=== PATIENT | male | born 1950 | race Caucasian/White ===

== ENCOUNTER → 2020-11-30 12:18 | Outpatient (BNVA) | payer MEDICARE, SELFPAY | PROVIDERS: PCP Internal Medicine; Visit Provider Internal Medicine Cardiovascular Disease | DX: Z45.018 Encounter for adjustment and management of other part of cardiac pacemaker (principal); I48.92 Unspecified atrial flutter; I71.2 Thoracic aortic aneurysm, without rupture | CPT/HCPCS: 99212 ==

== ENCOUNTER → 2021-01-27 08:20 | Outpatient (REF) | payer MEDICARE, SELFPAY ==
--- NOTE | 2021-01-27 08:31 | CA_ITS ---
Transthoracic Echocardiogram Amended Patient (Last, First, Middle): Josh Germain W Gender: Male Date of : 1950 Age: 70 Procedure Date: 01/27/2021 Procedure Type: Transthoracic Echocardiogram Location: OP Height: 185.42 cm Weight: 100.7 kg BSA: 2.25 m2 Heart Rate: bpm BP: 122 / 80 mmHg Surveillance Dual Rate Officer: ALEXIS Referring MD: Trever Hathaway MD Public Works Director: Trever Hathaway MD Symptoms: I71.2 - Thoracic aortic aneurysm, without rupture Study Quality: Fair ECG Rhythm: Atrial Fibrillation Conclusions: - 1. Moderately dilated ascending aorta at 4.6 cm 2. Normal LV systolic function 3. Mild left atrial enlargement 4. Mild aortic regurgitation 5. Normal RV systolic pressure 6. No gross pericardial effusion Findings Left Ventricle Normal left ventricular size, thickness, and systolic function. The visually estimated ejection fraction is between 55-60%. Diastolic function is indeterminate on the basis of available data. Right Ventricle Mildly increased right ventricular cavity size. There is borderline right ventricular systolic function. There is a pacemaker wire seen in the right ventricle. Atria The left atrium is mildly dilated. Interatrial shunt cannot be excluded. The right atrium is likely dilated. A pacemaker wire is identified in the right atrium. Aortic Valve There is mild calcification of the aortic valve. There is no aortic valve stenosis. There is mild aortic valve regurgitation. Mitral Valve There is mild anterior mitral leaflet thickening. There is mild mitral annular calcification. There is trace mitral valve regurgitation. There is no mitral valve stenosis. Pulmonic Valve The pulmonic valve was not well visualized. Tricuspid Valve Likely normal tricuspid valve structure and function. There is trace tricuspid valve regurgitation. The right ventricular systolic pressure is normal. The right ventricular systolic pressure is 28 mmHg. Normal right atrial pressure. There is no evidence of pulmonary hypertension. Great Vessels The pulmonary artery was not well visualized. There is moderate dilatation of the ascending aorta measuring 4.60 cm. Venous The inferior vena cava is normal in size and collapses greater than 50% with inspiration. Pericardium/Pleural There is no evidence of pericardial effusion. Prior Study Comparison Changes noted compared to prior study dated: 01/14/2020. Ascending aorta is moderately dilated at 4.6 cm compared to 4.14 cm last year Recommendations, Care & Conclusions Recommend cardiac CT angiogram. Measurements 2D Linear Measurements IVSd: 1.32 0.6-0.9/0.6-1.0 cm LVIDd: 5.24 3.9-5.3/4.2-5.9 cm LVIDd Index: 2.33 2.4-3.2/2.2-3.1 cm/m2 LVIDs: 3.97 2.0-3.6 cm LVPWd: 1.29 0.7-1.1 cm Ao Root: 4.30 2.1-3.5 cm LA Diam: 4.80 2.7-3.8/3.0-4.0 cm LAIDs Index: 2.13 1.5-2.3 cm/m2 LV Mass: 353.45 67-162/88-224 g LV Mass Index: 157.09 43-95/49-115 g/m2 LVOT Diam: 2.40 3.0+(-)1.3 cm 2D Volumes LA Vol: 33.40 2D Systolic Function EF 4C: 45.30 >55% EF 2C: 57.80 >55% Aortic Valve AoV Pk José Luis: 1.16 AoV Mn José Luis: 0.89 AoV VTI: 0.27 AoV Pk Grad: 5.00 Aov Mn Grad: 3.00 IKER Cont.VTI: 2.91 LVOT LVOT Pk José Luis: 0.71 LVOT Mn José Luis: 0.49 LVOT VTI: 0.17 LVOT Pk Grad: 2.00 LVOT Mn Grad: 1.00 LVOT Diam: 2.40 LVOT Area: 4.52 Right Ventricle TAPSE (mm): 1.83 Tricuspid Valve TR Pk José Luis: 2.25 TR Pk Grad: 20.00 RA Press: 8.00 RVSP: 28.00 Great Vessels Aorta Ao Root-2D: 4.30 2.0-3.7 cm Ao Asc: 4.60 2.1-3.4 cm Ao Arch: 2.70 Updated in Other Vendor System with Status of Final Trever Hathaway MD electronically signed on 01/27/2021 4:50:40 PM with status of Final
== END ==
LOC: HO.CARD 08:20
PROVIDERS: Visit Provider Internal Medicine Cardiovascular Disease
DX: I71.2 Thoracic aortic aneurysm, without rupture (principal)
CPT/HCPCS: 93306

== ENCOUNTER 2021-02-02 07:45 | Outpatient (REF) | payer MEDICARE, SELFPAY ==
--- NOTE | ~2021-02-02 | CT_ITS ---
EXAMINATION: CT ANGIOGRAM CHEST CLINICAL INFORMATION: Thoracic aortic aneurysm without rupture. COMPARISON: None TECHNIQUE: Multiple axial images were obtained through the chest after the administration of 81 mL of Omnipaque 350 intravenous contrast. Extensive vascular post-processing including 2-dimensional and 3-dimensional reformatted images were created and reviewed on an independent workstation. This CT examination was performed using dose optimization techniques as appropriate, variously including the following: *Automated exposure control *Adjustment of mA and/or kV according to patient size (this includes techniques or standardized protocols for targeted exams where dose is matched to indication/reason for exam; i.e. extremities or head) *Use of iterative reconstruction technique DLP: 234 mGy-cm FINDINGS: There is good opacification of the entire thoracic aorta with mild aneurysmal dilatation of the ascending aorta measuring 4.3 x 4.6 cm on axial image 34/5. There is normal 3-vessel branching. There are pacer electrodes in the right atrium and right ventricle. No pericardial effusion seen. The central trachea and the bronchi are widely patent. The thyroid lobes are symmetrical and normal. Small shotty lymph nodes are seen in the pretracheal region with a short axis measurement of 7 mm, axial image 27/5. No additional abnormal lymph nodes or mass seen. The lungs are well expanded and clear of acute process. There are no pulmonary nodules, mass or consolidation. There is no pleural effusion, thickening or calcification. There are small shotty lymph nodes in the axilla. The chest wall is unremarkable. Imaging through the upper abdomen reveals the liver to be mildly enlarged, especially the caudate lobe is enlarged. There is lobulated liver contour with heterogeneity. The spleen, pancreas and bilateral adrenal glands are unremarkable. Left renal perinephric stranding and thickening especially along the upper pole. CT/CT angio chest IMPRESSION: Mild aneurysmal dilatation of the ascending aorta measuring 4.3 x 4.6 cm in the mid ascending aortic segment. The lungs are clear.
[2021-02-02 08:45] LABS: Anion Gap 12 (12-20); Blood Urea Nitrogen 7 mg/dL (9-16); Calcium 9.1 mg/dL (8.4-10.2); Carbon Dioxide 32 mmol/L (22-29); Chloride 102 mmol/L (96-108); Estimated Glomerular Filt Rate > 60; Glucose Random 150 mg/dL (60-115); Potassium 4.3 mmol/L (3.3-5.1); Sodium 142 mmol/L (135-145)
[2021-02-02] MEDS: iohexoL 350 MG/ML 100 ML INFUS..BTL IV (09:35)
== END 2021-02-02 07:46 | disposition home or self-care (01) ==
LOC: HO.CT 07:45
PROVIDERS: PCP Physician Assistant Medical; Visit Provider Internal Medicine Cardiovascular Disease
DX: I71.2 Thoracic aortic aneurysm, without rupture (principal)
CPT/HCPCS: 36415; 71275; 80048; Q9967

== ENCOUNTER → 2021-03-09 12:34 | Outpatient (BNVA) | payer MEDICARE, SELFPAY | PROVIDERS: PCP Physician Assistant Medical; Visit Provider Internal Medicine Cardiovascular Disease | DX: I71.2 Thoracic aortic aneurysm, without rupture (principal) | CPT/HCPCS: Q3014 ==

== ENCOUNTER → 2021-07-19 07:40 | Outpatient (REF) | payer MEDICARE, SELFPAY ==
--- NOTE | 2021-07-19 07:46 | CA_ITS ---
Transthoracic Echocardiogram Patient (Last, First, Middle): Josh Germain W Gender: Male Date of : 1950 Age: 70 Procedure Date: 07/19/2021 Procedure Type: Transthoracic Echocardiogram Location: OP Height: 185.42 cm Weight: 99.79 kg BSA: 2.24 m2 Heart Rate: bpm BP: 134 / 70 mmHg Cable Engineer: DALILA Referring MD: Trever Hathaway MD Flame Planer: Trever Hathaway MD Symptoms: I71.2 - Thoracic aortic aneurysm, without rupture Study Quality: Fair ECG Rhythm: Undetermined Conclusions: - Moderately dilated ascending aorta at 4.6 cm. No change Findings Great Vessels There is moderate dilatation of the ascending aorta measuring 4.60 cm. Prior Study Comparison No significant change compared to prior study dated: 01/27/2021. Measurements 2D Linear Measurements Ao Root: 4.20 2.1-3.5 cm Great Vessels Aorta Ao Root-2D: 4.20 2.0-3.7 cm Ao Asc: 4.60 2.1-3.4 cm Ao Arch: 3.70 Updated in Other Vendor System with Status of Final Trever Hathaway MD electronically signed on 07/19/2021 11:15:50 AM with status of Final
== END ==
LOC: HO.CARD 07:40
PROVIDERS: Visit Provider Internal Medicine Cardiovascular Disease
DX: I71.2 Thoracic aortic aneurysm, without rupture (principal)
CPT/HCPCS: 93308

== ENCOUNTER → 2021-12-06 08:21 | Outpatient (BNVA) | payer MEDICARE, SELFPAY | PROVIDERS: PCP Physician Assistant Medical; Referring Provider Physician Assistant Medical; Visit Provider Internal Medicine Cardiovascular Disease | DX: Z45.018 Encounter for adjustment and management of other part of cardiac pacemaker (principal); I48.20 Chronic atrial fibrillation, unspecified; I71.2 Thoracic aortic aneurysm, without rupture | CPT/HCPCS: 93005; 99212 ==

== ENCOUNTER → 2022-02-14 07:08 | Outpatient (REF) | payer MEDICARE, SELFPAY ==
--- NOTE | 2022-02-14 07:11 | CA_ITS ---
Transthoracic Echocardiogram Patient (Last, First, Middle): Josh Germain W Gender: Male Date of : 1950 Age: 71 Procedure Date: 02/14/2022 Procedure Type: Transthoracic Echocardiogram Location: OP Height: 185.42 cm Weight: 101.61 kg BSA: 2.26 m2 Heart Rate: 68 bpm BP: 120 / 80 mmHg Machined Parts Quality Inspector: MEJIA Referring MD: Trever Hathaway MD Sound Truck Operator: Trever Hathaway MD Symptoms: I71.2 - Thoracic aortic aneurysm, without rupture Study Quality: Adequate ECG Rhythm: Atrial Fibrillation Conclusions: - 1. Normal LV systolic function next 2. Moderate biatrial enlargement 3. Trivial aortic regurgitation 4. Moderately dilated ascending aorta at 4.6 cm 5. Normal RV systolic pressure 6. No gross pericardial effusion Findings Left Ventricle Normal left ventricular size, thickness, and systolic function. The visually estimated ejection fraction is between 55-60%. Diastolic function is indeterminate on the basis of available data. Right Ventricle Mildly increased right ventricular cavity size. There is normal right ventricular systolic function. There is a pacemaker wire seen in the right ventricle. Atria The left atrium is moderately dilated. Interatrial shunt cannot be excluded. The right atrium is moderately dilated. Aortic Valve There is mild calcification of the aortic valve. There is no aortic valve stenosis. There is trace (trivial) aortic valve regurgitation. Mitral Valve There is mild anterior and posterior mitral leaflet thickening. There is mild mitral annular calcification. There is trace mitral valve regurgitation. There is no mitral valve stenosis. Pulmonic Valve The pulmonic valve was not well visualized. Tricuspid Valve Likely normal tricuspid valve structure and function. There is mild tricuspid valve regurgitation. The right ventricular systolic pressure is normal. The right ventricular systolic pressure is 29 mmHg. Normal right atrial pressure. There is no evidence of pulmonary hypertension. Great Vessels The pulmonary artery was not well visualized. There is moderate dilatation of the ascending aorta measuring 4.60 cm. Venous The inferior vena cava is normal in size and collapses greater than 50% with inspiration. Pericardium/Pleural There is no evidence of pericardial effusion. Prior Study Comparison No significant change compared to prior study dated: 07/19/2021. Measurements 2D Linear Measurements IVSd: 1.41 0.6-0.9/0.6-1.0 cm LVIDd: 5.28 3.9-5.3/4.2-5.9 cm LVIDd Index: 2.34 2.4-3.2/2.2-3.1 cm/m2 LVIDs: 3.65 2.0-3.6 cm LVPWd: 0.84 0.7-1.1 cm LA Diam: 5.20 2.7-3.8/3.0-4.0 cm LAIDs Index: 2.30 1.5-2.3 cm/m2 LV Mass: 291.48 67-162/88-224 g LV Mass Index: 128.97 43-95/49-115 g/m2 LVOT Diam: 2.90 3.0+(-)1.3 cm 2D Systolic Function EF 4C: 57.60 >55% EF 2C: 47.50 >55% Aortic Valve AoV Pk José Luis: 1.33 AoV Mn José Luis: 0.84 AoV VTI: 0.27 AoV Pk Grad: 7.00 Aov Mn Grad: 4.00 IKER Cont.VTI: 5.25 LVOT LVOT Pk José Luis: 1.01 LVOT Mn José Luis: 0.70 LVOT VTI: 0.22 LVOT Pk Grad: 4.00 LVOT Mn Grad: 2.00 LVOT Diam: 2.90 LVOT Area: 6.61 Right Ventricle TAPSE (mm): 17.30 TVS' José Luis: 11.90 Tricuspid Valve TR Pk José Luis: 2.27 TR Pk Grad: 21.00 RA Press: 8.00 RVSP: 29.00 Great Vessels Aorta Sinus of Valsalva: 4.10 2.0-3.5 cm Ao Asc: 4.60 2.1-3.4 cm Ao Arch: 3.90 Pulmonary Valve PV Pk José Luis: 0.77 Peak PV Grad: 2.00 Updated in Other Vendor System with Status of Final Trever Hathaway MD electronically signed on 02/14/2022 12:03:49 PM with status of Final
== END ==
LOC: HO.CARD 07:08
PROVIDERS: PCP Registered Nurse; Visit Provider Internal Medicine Cardiovascular Disease
DX: I71.2 Thoracic aortic aneurysm, without rupture (principal)
CPT/HCPCS: 93306

== ENCOUNTER → 2022-12-06 09:00 | Outpatient (BNVA) | payer MEDICARE, SELFPAY | PROVIDERS: PCP Registered Nurse; Referring Provider Registered Nurse; Visit Provider Internal Medicine Cardiovascular Disease | DX: I48.20 Chronic atrial fibrillation, unspecified (principal); I71.20 Thoracic aortic aneurysm, without rupture, unspecified; Z79.01 Long term (current) use of anticoagulants; Z45.018 Encounter for adjustment and management of other part of cardiac pacemaker | CPT/HCPCS: 93005; 99212 ==

== ENCOUNTER → 2023-04-03 23:59 | Outpatient (BNV) | payer MEDICARE, SELFPAY ==
--- NOTE | 2023-04-10 15:59 | A.OFFVIS_ITS ---
Intake Intake Visit Reasons: Remote device check- [facility] Allergies bacitracin [Bacitracin] Allergy (Mild, Verified 12/06/22 09:10) ITCHING Sulfa (Sulfonamide Antibiotics) Allergy (Mild, Verified 12/06/22 09:10) Itching [facility] Medical History Cardiac pacemaker in situ Chronic atrial fibrillation Chronic atrial flutter HTN (hypertension) Thoracic aortic aneurysm Surgical History History of hammer toe correction History of permanent cardiac pacemaker placement Hx of cholecystectomy Family History Father No problems noted. Mother Cancer Office Procedures Cardiac Device Check Cardiac Device Check Details: Remote pacemaker report generated April 03 2023. Pacemaker function is adequate [id number] Cardiac Device Interrogation, pacemaker Procedure code (CPT) selection complete Coding Level of Care Code Procedure Only CPT Codes Cardiac Device Check - Cardiac Device 12: [id number] Cardiac Device Interrogation, pacemaker ([id number])
== END ==
PROVIDERS: PCP Registered Nurse; Visit Provider Internal Medicine Cardiovascular Disease
DX: I48.20 Chronic atrial fibrillation, unspecified (principal); Z95.0 Presence of cardiac pacemaker
CPT/HCPCS: 93294

== ENCOUNTER 2023-06-29 09:15 | Outpatient (AMB) | payer MEDICARE, SELFPAY ==
--- NOTE | 2023-06-29 09:20 | MHC.OFFVIS ---
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 Accompanied by: Self / Same As Patient Allergies bacitracin [Bacitracin] Allergy (Mild, Verified 06/29/23 09:23) ITCHING Sulfa (Sulfonamide Antibiotics) Allergy (Mild, Verified 06/29/23 09:23) Itching Medication List - Last Reconciled 06/29/23 by Trever Hathaway MD magnesium oxide 400 mg PO DAILY metformin 1,000 mg PO BID metoprolol succinate ER 200 mg PO DAILY multivitamin 1 tab PO DAILY prazosin 2 mg PO BID sour egan extract (Tart Egan Extract) mg PO thiamine HCl (vitamin B1) (Vitamin B-1) 100 mg PO BID triamterene-hydrochlorothiazid 37.5-25 mg 1 tab PO DAILY ursodiol 500 mg PO TID warfarin 5 mg PO DAILY HPI HPI Comments History of Present Illness Details Josh comes for follow-up. He has been doing well. He denies any cardiac complaints. Denies any symptoms of prolonged palpitation irregular heartbeat. No bleeding issues or neurologic events. Takes warfarin, levels are well optimized. Denies any exertional chest pain or shortness of breath. Denies any orthopnea, PND, leg edema. Takes all his medications regularly. [facility] Medical History Chronic atrial fibrillation Thoracic aortic aneurysm HTN (hypertension) Cardiac pacemaker in situ Chronic atrial flutter Surgical History History of hammer toe correction Hx of cholecystectomy History of permanent cardiac pacemaker placement Family History Father No problems noted. Mother Cancer Social History Alcohol intake: current Alcohol type: wine Patient Tobacco Use Status: Never used Tobacco Review of Systems Const Reports chills, Reports fatigue, Reports fever(s), Reports frequent falls, Reports weakness, Reports weight gain and Reports weight loss ENT Reports dizziness Card Reports chest pain, Reports leg edema, Reports lightheadedness, Reports palpitations, Reports dyspnea and Reports dyspnea on exertion Resp Reports cough, Reports dyspnea and Reports dyspnea on exertion GI Reports hematochezia Musc Reports abnormal gait, Reports muscle weakness, Reports numbness, Reports radiating pain into limb and Reports tingling Neuro Reports abnormal gait, Reports dizziness, Reports frequent falls, Reports numbness, Reports tingling and Reports weakness Endo Reports fatigue and Reports palpitations Physical Exam Vital Signs: Last Vital Signs Pulse 84 06/29/23 09:21 BP 130/70 06/29/23 09:21 BMI result Body Mass Index 28.0 Const General: cooperative, comfortable, no acute distress, alert, awake and Physically active Nutritional Appearance: average body habitus Orientation/consciousness: patient oriented x3 Limitations: no limitations Neck Neck: Yes trachea midline, Yes supple and Yes no JVD Resp Effort & Inspection: normal respiratory effort Auscultation: clear to auscultation bilaterally Cardio Jugular venous distension: no JVD Palpation: normal PMI Rhythm: abnormal rhythm irregularly irregular Heart sounds: S1 normal heart sound present and S2 normal heart sound present GI Auscultation: normal bowel sounds Skin General skin exam: no rashes or lesions noted and dry skin Neuro General: patient oriented x3 and no focal motor deficits Extrem General: Yes no clubbing, cyanosis or edema Psych Appearance: grossly normal Office Procedures Cardiac Device Check Cardiac Device Check Details: Dual-chamber [place] [facility] pacemaker in place. Programmed in VVI due to chronic atrial fibrillation. Heart rate is adequately controlled. Ventral capture thresholds adequate. Ventricular sensing is stable on the lower side. Pacing lead impedance is stable. Battery life is at about 11.8 years [id number] Cardiac Device Check, pacemaker dual lead Procedure code (CPT) selection complete Assessment & Plan Assessment & Plan (1) Chronic atrial fibrillation: Code(s): I48.20 - Chronic atrial fibrillation, unspecified Plan: Chronic rate control atrial fibrillation currently doing well. Continue current rate control strategy. No signs or symptoms of heart failure. He has failed rhythm control approach in the past. Unlikely to pursue rhythm control at this point time given long-standing atrial fibrillation. Currently on warfarin therapy for anticoagulation continue the same. Target goal INR between 2 and 3 being followed by [facility]. (2) Thoracic aortic aneurysm: Comment: 4.2 cm by echocardiogram December 2019 Code(s): I71.2 - Thoracic aortic aneurysm, without rupture Plan: Thoracic aortic aneurysm which has remained stable. Follow-up echocardiogram in near future before he travels to [place]. No interventions required if the size is stable. This was discussed with him. Avoidance of sudden strenuous isometric exercise was discussed. Continue aggressive blood pressure control which is currently well optimized. (3) Cardiac pacemaker in situ: Code(s): Z95.0 - Presence of cardiac pacemaker Plan: Cardiac pacemaker in-situ for sick sinus syndrome. Pacemaker is currently in VVI mode. Working well. Follow remotely in 3 months time. Follow up in the clinic in 6 months time. Will follow up in the clinic in 6 months time, sooner p.r.n.. Thank you for allowing me to partake in his care Orders: Orders CA echo transthorac w con Today I71.2 - Thoracic aortic aneurysm, without rupture Coding Level of Care Code Est Pt Level 4 (31138) Diagnoses Chronic atrial fibrillation I48.20 Thoracic aortic aneurysm I71.2 Cardiac pacemaker in situ Z95.0 CPT Codes Cardiac Device Check - Cardiac Device 2: [id number] Cardiac Device Check, pacemaker dual lead ([id number])
[2023-06-29 09:21] VITALS: BP 130/70; PULSE 84; BMI 28.0
== END 2023-06-29 09:41 | disposition home or self-care (01) ==
PROVIDERS: Visit Provider Internal Medicine Cardiovascular Disease
DX: I48.20 Chronic atrial fibrillation, unspecified (principal); I71.20 Thoracic aortic aneurysm, without rupture, unspecified; Z95.0 Presence of cardiac pacemaker
CPT/HCPCS: 93280; 99214

== ENCOUNTER → 2023-06-29 09:15 | Outpatient (BNVA) | payer MEDICARE, SELFPAY | PROVIDERS: Visit Provider Internal Medicine Cardiovascular Disease | DX: Z45.018 Encounter for adjustment and management of other part of cardiac pacemaker (principal); I48.20 Chronic atrial fibrillation, unspecified; I71.20 Thoracic aortic aneurysm, without rupture, unspecified | CPT/HCPCS: 93280; 99212 ==

== ENCOUNTER 2023-07-15 09:16 | Outpatient (AMB) | payer MEDICARE, SELFPAY ==
--- NOTE | 2023-07-15 11:14 | AM.OFFWIN_ITS ---
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 ([phone]) Intake Note: Pt is here today c/o lower back pain x2days: no injury noted: Patient Tobacco Use Status: Never used Tobacco Allergies bacitracin [Bacitracin] Allergy (Mild, Verified 07/15/23 11:14) ITCHING Sulfa (Sulfonamide Antibiotics) Allergy (Mild, Verified 07/15/23 11:14) Itching Do you need a note to return to daycare/school/sports/work: No HPI HPI Comments History of Present Illness Details This is a 72-year-old male with a past medical history of hyperglycemia, hypertension and atrial fibrillation currently maintained on Coumadin presenting for evaluation of atraumatic low back pain that he has had for the past 2 days. Patient states he woke up on morning with pain in his left low back that does not radiate. Patient describes the pain as a soreness which will become stabbing in nature with movement. Patient denies any injury or trauma preceding the onset of his symptoms. Patient has been taking ibuprofen without complete relief of his discomfort. [facility] Medical History Chronic atrial fibrillation Thoracic aortic aneurysm HTN (hypertension) Cardiac pacemaker in situ Chronic atrial flutter Surgical History History of hammer toe correction Hx of cholecystectomy History of permanent cardiac pacemaker placement Family History Father No problems noted. Mother Cancer Social History Alcohol intake: current Alcohol type: wine Patient Tobacco Use Status: Never used Tobacco Review of Systems Const All systems reviewed & are unremarkable except as noted in HPI and below Musc Reports no additional complaints, Reports back pain, Denies myalgias and Denies radiating pain into limb Psych Reports no additional complaints Physical Exam Vital Signs: Last Vital Signs Pulse 66 07/15/23 11:22 BP 110/50 L 07/15/23 11:22 Pulse Ox 94 07/15/23 11:22 Oxygen Delivery Method Room Air 07/15/23 11:22 BMI result Body Mass Index 28.8 Const General: cooperative, healthy appearing, comfortable and no acute distress Nutritional Appearance: average body habitus Orientation/consciousness: patient oriented x3 Limitations: no limitations General: Yes no CVA tenderness Back/Spine/Pelvis Back: no CVA tenderness and No sacral edema Thoracic/Lumbar Spine: thoracic and lumbar spine normal to inspection, thoraco- lumbar ROM normal, straight leg raise negative bilaterally and paraspinal muscle tenderness on the left greater than right Sacroiliac joints: bilaterally nontender Sacrum: no tenderness Coccyx: no tenderness Skin General skin exam: no rashes or lesions noted Neuro General: patient oriented x3 Gait exam (Neuro): Normal gait present Motor exam (neuro): 5/5 motor strength present throughout Psych Appearance: grossly normal Mental Status: mental status grossly normal Insight: Good insight present (Psych) Judgement: Good judgement present (Psych) Assessment & Plan Assessment & Plan (1) Lumbar strain: Code(s): S39.012A - Strain of muscle, fascia and tendon of lower back, initial encounter Plan: Patient's history coupled with his examination is consistent with a lumbar muscular strain. Further imaging is not warranted at this time. Given this patient's Coumadin use he will be discharged home with Flexeril and prednisone. Patient will follow up with his primary care provider if his symptoms persist or worsen. Medications: New prednisone 40 mg (2 x 20 mg) PO DAILY 8 tabs 0RF cyclobenzaprine 5 mg PO TID PRN 12 tabs 0RF muscle spasm Coding Level of Care Code New Pt Level 3 (29247) Diagnoses Lumbar strain S39.012A Time Spent (min) 20
[2023-07-15 11:22] VITALS: BP 110/50; PULSE 66; O2SAT 94; BMI 28.8
== END 2023-07-15 11:57 | disposition home or self-care (01) ==
PROVIDERS: PCP Registered Nurse; Visit Provider Physician Assistant
DX: S39.012A Strain of muscle, fascia and tendon of lower back, initial encounter (principal)
CPT/HCPCS: 99203

== ENCOUNTER 2023-07-17 07:38 | Emergency (ER) | payer MEDICARE, SELFPAY ==
--- NOTE | ~2023-07-17 | XR_ITS ---
EXAMINATION: XR LUMBOSACRAL SPINE CLINICAL INFORMATION: Midline tenderness. COMPARISON: None available. TECHNIQUE: Three views of the lumbosacral spine. FINDINGS: Posterior laminectomy with posterior stabilization hardware at L4 through S1. No hardware fracture or perihardware lucency to suggest loosening or infection. The lumbar lordosis is maintained. No acute fracture or subluxation. No loss of vertebral body height. Multilevel loss of intervertebral disc height with endplate degenerative changes and osteophytes. Multilevel bilateral facet arthropathy. No concerning lytic or blastic osseous lesion. Atherosclerotic calcifications. XR/XR lumbar spine 2-3V IMPRESSION: 1. Posterior stabilization hardware at L4 through S1 without evidence of hardware complication. 2. No acute fracture or subluxation.
[2023-07-17 08:29] VITALS: BP 143/71; PULSE 64; RESP 16; TEMP 36.6; O2SAT 95; BMI 27.3
--- NOTE | 2023-07-17 09:16 | ED_ITS ---
HPI - General Adult General Chief complaint: Back Pain/Injury Stated complaint: Lower back pain Time Seen by Provider: 07/17/23 09:16 Source: patient and family () Mode of arrival: ambulatory Limitations: no limitations History of Present Illness HPI narrative: Patient is a 72-year-old male with history of AFib on Coumadin, thoracic aortic aneurysm, HTN, pacemaker presenting to the emergency department with complaint of left lower back pain since waking Monday morning. He was seen at the walk-in on 07/15, diagnosed with a lumbar strain, and prescribed prednisone and cyclobenzaprine. Reports he did not have any imaging done at urgent care. He was taking Tylenol prior to this with little relief. States that these medications have not improved his symptoms at all and his pain is worsening. Denies any dysuria, frequency or other urinary symptoms. Denies fevers. Denies any weakness, numbness, tingling. Denies any radiation of pain. Denies any abdominal pain. Denies any chest pain, palpitations, shortness of breath. Reports history of previous back surgeries, is unsure specifically what type of surgery. MD complaint: Back pain Onset (ago): day(s) Location: back Radiation: non-radiation Severity: severe Quality: aching Pain Consistency: constant Relieving factors: rest Exacerbating factors: movement Associated symptoms: denies other symptoms Treatments prior to arrival: other Related Data Home Medications Medication Instructions Recorded Confirmed multivitamin 1 tab PO DAILY 11/30/20 06/29/23 prazosin 2 mg capsule 2 mg PO BID 11/30/20 06/29/23 warfarin 5 mg tablet 5 mg PO DAILY 11/30/20 06/29/23 metoprolol succinate 100 mg 200 mg PO DAILY 12/06/21 06/29/23 tablet,extended release 24 hr sour mcleod extract 1,000 mg mg PO 12/06/21 06/29/23 capsule (Tart Mcleod Extract) thiamine HCl (vitamin B1) 100 mg 100 mg PO BID 12/06/21 06/29/23 tablet (Vitamin B-1) magnesium oxide 400 mg (241.3 mg 400 mg PO DAILY 12/06/22 06/29/23 magnesium) tablet metformin 1,000 mg tablet 1,000 mg PO BID 12/06/22 06/29/23 triamterene 37.5 1 tab PO DAILY 12/06/22 06/29/23 mg-hydrochlorothiazide 25 mg tablet ursodiol 500 mg tablet 500 mg PO TID 12/06/22 06/29/23 Previous Rx's Medication Instructions Recorded cyclobenzaprine 5 mg tablet 5 mg PO TID PRN muscle spasm #12 07/15/23 tabs prednisone 20 mg tablet 40 mg (2 x 20 mg) PO DAILY #8 tabs 07/15/23 diclofenac sodium 1 % topical gel 4 g topical QID #100 grams 07/17/23 lidocaine 5 % topical patch 1 patch topical DAILY #15 ea 07/17/23 tramadol 50 mg tablet 50 mg PO Q8H PRN pain #12 tabs 07/17/23 Allergies Allergy/AdvReac Type Severity Reaction Status Date / Time bacitracin [Bacitracin] Allergy Mild ITCHING Verified 07/15/23 11:14 Sulfa (Sulfonamide Allergy Mild Itching Verified 07/15/23 11:14 Antibiotics) Review of Systems Review of Systems: As per HPI. Yes all other systems are reviewed and are negative Constitutional: Constitutional: Reports as per HPI [facility] Past Medical History Medical History Chronic atrial fibrillation Thoracic aortic aneurysm HTN (hypertension) Cardiac pacemaker in situ Chronic atrial flutter Surgical History History of hammer toe correction Hx of cholecystectomy History of permanent cardiac pacemaker placement Family History Family History Father No problems noted. Mother Cancer Social History Social History Alcohol intake: current Alcohol type: wine Patient Tobacco Use Status: Never used Tobacco Advance Directives: No Advance Directives Information Provided: No Physical Exam ED Vital Signs: Vital Signs - 24 hr 07/17/23 08:29 Temperature 98 F Pulse Rate 64 Respiratory Rate 16 Blood Pressure 143/71 H Pulse Oximetry 95 Oxygen Delivery Method Room Air BMI result Body Mass Index 27.3 Vital signs have been reviewed and appear to be correct. Blood pressure normal. Heart rate normal. Respiratory rate normal. Temperature normal. Oxygen saturation normal. Const General: cooperative, healthy appearing and no acute distress Orientation/consciousness: oriented to person, oriented to place, oriented to time and patient oriented x3 Limitations: no limitations [facility] Head: Yes normocephalic and Yes atraumatic Ears: external ears normal General nose exam: Normal external nose present Face and sinus: Yes face symmetric Mouth: oropharynx normal and moist mucous membranes Throat: Yes uvula midline Eyes Pupils: Equal, round and reactive pupils present Neck Neck: Yes normal visual inspection, Yes no meningeal signs and Yes supple Resp Effort & Inspection: normal respiratory effort and able to speak in complete sentences Auscultation: clear to auscultation bilaterally Cardio Rate: regular rate Rhythm: regular rhythm Heart sounds: S1 normal heart sound present and S2 normal heart sound present GI Palpation (GI): Soft to palpation and nontender Auscultation: normoactive bowel sounds General: Yes no CVA tenderness Back/Spine/Pelvis Back: no CVA tenderness Cervical Spine: normal cervical lordosis, cervical ROM normal, No Cervical spine tenderness and No step off deformity Thoracic/Lumbar Spine: thoracic and lumbar spine normal to inspection, thoraco- lumbar ROM normal, straight leg raise negative bilaterally, No mass, pain with thoraco-lumbar ROM, paraspinal muscle tenderness on the left in the upper thoracic, No thoracic spinal tenderness and lumbar spinal tenderness at L1 and at L2 Sacroiliac joints: bilaterally nontender Sacrum: no tenderness Coccyx: no tenderness Skin General skin exam: elasticity normal and turgor normal Neuro General: oriented to person, oriented to place, oriented to time, patient oriented x3, gait normal, tone normal, moves all extremities, Normal light touch and pain sensation, no meningeal signs, no focal motor deficits, CN's II-XI intact bilaterally and deep tendon reflexes 2+ bilaterally Cranial nerves: Yes Equal, round and reactive pupils present Cognition (Neuro): normal cognition Motor exam (neuro): 5/5 motor strength present throughout, Normal motor muscle tone present throughout and Motor abnormalities not present Extrem General: Yes full ROM, Yes no pedal edema and Yes no calf tenderness Right lower extremity: foot Details: vascular exam Details: dorsalis pedis pulse present, posterior tibial pulse present and normal capillary refill Left lower extremity: foot Details: vascular exam Details: dorsalis pedis pulse present, posterior tibial pulse present and normal capillary refill Psych Mental Status: mental status grossly normal Affect: normal affect Thought process: Normal thought process present Medications Administered Discontinued Medications Generic Name Dose Route Start Last Admin Trade Name Freq PRN Reason Stop Dose Admin Oxycodone HCl 5 mg 07/17/23 09:24 07/17/23 09:59 Oxycodone Hcl Immed Release 5 Mg Tablet PO 07/17/23 09:25 5 mg ONCE ONE Administration Medical Decision Making Medical Decision Making [facility] Narrative: Patient is a 72-year-old male with history of AFib on Coumadin, thoracic aortic aneurysm, HTN, pacemaker presenting to the emergency department with complaint of left lower back pain since waking [place] morning not improved with cyclobenzaprine and prednisone. On exam patient is awake, A+Ox3, BP mildly elevated, VS otherwise WNL, afebrile, normal neurological exam without focal deficits, physical exam findings as above. Given reported symptoms and physical exam findings, initial differential includes lumbar strain, vertebral compression fracture, subluxation, spinal stenosis, osteoarthritis. Less likely UTI but will obtain UA. Do not suspect spinal epidural abscess, cauda equina or cord compression. X-ray notable for no acute fracture or subluxation, hardware present. My interpretation is in agreement with the radiologist's interpretation. UA notable only for trace leukocytes, given absence of urinary symptoms do not suspect UTI. Will treat patient with lidocaine patches, diclofenac gel, and tramadol. Instructed patient to follow up with PCP. Return precautions discussed at bedside. Patient verbalized understanding of and agreement with plan. Differential Diagnosis Differential Diagnoses: The differential diagnosis associated with the presentation includes As per MDM. Lab Data [facility] Lab Attestation statement: I reviewed the patient's lab results. As per [facility]. Labs: Lab Results 07/17/23 Range/Units 10:33 Urine Color Dark Yellow Urine Appearance Clear Urine pH 7.5 (5.0-9.0) Ur Specific [place] 1.025 (1.005-1.025) Urine Protein Trace (Neg-Trace) mg/dL Urine Glucose (UA) Negative (Negative) mg/dL Urine Ketones Negative (Negative) mg/dL Urine Blood Negative (Negative) Urine Nitrite Negative (Negative) Ur Leukocyte Esterase Trace H (Negative) Urine RBC 0-2 (0-2) /HPF Urine WBC 0-5 (0-5) /HPF Ur Squamous Epith Cells 0-2 (0-2) /HPF Urine Bacteria None Seen (None Seen) Hyaline Casts 0-2 (0-2) /LPF Independent Interpretation I performed an independent interpretation of an: Plain X-Ray Interpretation: No acute fracture or subluxation on lumbar x-ray Radiology Impression Discussion of test interpretation with radiology: I have reviewed the radiologist's reading. Radiologist Impression: XR/XR lumbar spine 2-3V IMPRESSION: 1. Posterior stabilization hardware at L4 through S1 without evidence of hardware complication. 2. No acute fracture or subluxation. Independent Historian Clinical information obtained from an independent historian. History obtained from or confirmed by: Spouse External Record Review External record reviewed: Inpatient record, Office record and Outpatient record Prescription Management I considered prescription management with: Pain Medication Chronic Conditions Patient?s care impacted by: Hypertension Discharge Plan Discharge Clinical Impression: Lumbar strain Patient Disposition: Home, Self-Care Instructions: Low Back Strain (ED), Acute Low Back Pain (ED) Additional Instructions: You were evaluated in the emergency department today for back pain. Your evaluation did not show signs of medical conditions requiring emergent intervention at this time. We recommended that you use 650mg Tylenol every 6 hours as needed for pain. You are being prescribed tramadol for severe pain. D O NOT TAKE THE TRAMADOL WITH THE FLEXERIL (CYCLOBENZAPRINE). You have been prescribed 5% topical lidocaine patches which you can wear for up to 12 hours in a 24 hour period. You are also being prescribed diclofenac gel which you can apply to the affected area. Please schedule an appointment for follow-up with your primary care physician this week for further evaluation of your symptoms. Return to the emergency department if you experience worsening back pain, difficulty walking, fevers, numbness, tingling, incontinence, groin numbness or tingling, or any other concerning symptoms. Prescriptions: New tramadol 50 mg tablet 50 mg PO Q8H PRN (Reason: pain) Qty: 12 0RF Rx Instructions: DO NOT TAKE THIS MEDICATION WITH YOUR FLEXERIL (CYCLOBENZAPRINE) lidocaine 5 % adhesive patch,medicated 1 patch topical DAILY Qty: 15 0RF Rx Instructions: leave on most painful area for up to 12 hrs diclofenac sodium 1 % gel 4 g topical QID Qty: 100 0RF Rx Instructions: apply to single knee, ankle, foot; for foot includes sole/toes/top of foot No Action prednisone 20 mg tablet 40 mg PO DAILY Qty: 8 0RF cyclobenzaprine 5 mg tablet 5 mg PO TID PRN (Reason: muscle spasm) Qty: 12 0RF multivitamin Tablet 1 tab PO DAILY warfarin 5 mg tablet 5 mg PO DAILY prazosin 2 mg capsule 2 mg PO BID thiamine HCl (vitamin B1) [Vitamin B-1] 100 mg tablet 100 mg PO BID Tart Mcleod Extract 1,000 mg capsule PO metoprolol succinate 100 mg tablet extended release 24 hr 200 mg PO DAILY ursodiol 500 mg tablet 500 mg PO TID triamterene-hydrochlorothiazid 37.5-25 mg tablet 1 tab PO DAILY metformin 1,000 mg tablet 1,000 mg PO BID magnesium oxide 400 mg (241.3 mg magnesium) tablet 400 mg PO DAILY
[2023-07-17] MEDS: oxyCODONE HCl Immed Release 5 MG TABLET PO (09:59)
[2023-07-17 10:39] LABS: Appearance Urine Clear; Color Urine Dark Yellow; Glucose Urine UA Negative (Negative); Leukocyte Esterase Urine Trace (Negative); Nitrite Urine Negative (Negative); PH 7.5 (5.0-9.0); Specific Gravity - Urine 1.025 (1.005-1.025); UMIC TRIGGER UACC YES; Urine Blood Negative (Negative); Urine Ketones Negative (Negative); Urine Protein Trace mg/dL (Neg-Trace)
[2023-07-17 10:42] LABS: Bacteria Urine None Seen (None Seen); Hyaline Casts Urine 0-2 /LPF (0-2); RBC Urine 0-2 /HPF (0-2); Squamous Epithelial Cell Urine 0-2 /HPF (0-2); WBC Urine 0-5 /HPF (0-5)
== END 2023-07-17 11:08 | disposition home or self-care (01) ==
PROVIDERS: Registered Nurse Emergency; Emergency Provider Emergency Medicine; PCP Registered Nurse
DX: S39.012A Strain of muscle, fascia and tendon of lower back, initial encounter (principal); X58.XXXA Exposure to other specified factors, initial encounter; I10 Essential (primary) hypertension; I48.20 Chronic atrial fibrillation, unspecified; Z95.0 Presence of cardiac pacemaker; Z79.01 Long term (current) use of anticoagulants; Y93.9 Activity, unspecified; Y92.9 Unspecified place or not applicable; Y99.9 Unspecified external cause status
CPT/HCPCS: 72100; 81001; 99283; 99284

== ENCOUNTER → 2023-07-19 07:50 | Outpatient (REF) | payer MEDICARE, SELFPAY ==
--- NOTE | 2023-07-19 07:53 | CA_ITS ---
Transthoracic Echocardiogram Amended Patient (Last, First, Middle): Josh Germain W Gender: Male Date of : 1950 Age: 72 Procedure Date: 07/19/2023 Procedure Type: Transthoracic Echocardiogram Location: OP Height: 185.42 cm Weight: 93.9 kg BSA: 2.18 m2 Heart Rate: bpm BP: 122 / 68 mmHg [place]: TO Referring MD: Trever Hathaway MD Oncology Account Specialist: Trever Hathaway MD Symptoms: I71.2 - Thoracic aortic aneurysm, without rupture Study Quality: Fair ECG Rhythm: Atrial Fibrillation Conclusions: - 1. Normal LV ejection fraction 55-60% 2. Moderate biatrial enlargement 3. Mildly to moderately dilated ascending aorta, measured on this study at 4.4 cm 4. Normal RV systolic pressure 5. No gross pericardial effusion Findings Procedure Information The study quality is limited by the patients inability to tolerate the test. Left Ventricle Normal left ventricular size, thickness, and systolic function. The visually estimated ejection fraction is between 55-60%. There is no evidence of regional wall motion abnormalities. Diastolic function is indeterminate on the basis of available data. There is moderate septal asymmetric hypertrophy. Right Ventricle Normal right ventricular cavity size. There is normal right ventricular systolic function. There is a pacemaker wire seen in the right ventricle. Atria Moderate biatrial enlargement. There is no evidence of interatrial shunt. Aortic Valve There is mild calcification of the aortic valve. There is no aortic valve stenosis. There is no aortic valve regurgitation. Mitral Valve There is mild anterior and moderate posterior mitral leaflet thickening. There is moderate mitral annular calcification. There is trace mitral valve regurgitation. There is no mitral valve stenosis. Tricuspid Valve Normal tricuspid valve structure. There is mild tricuspid valve regurgitation. The right ventricular systolic pressure is 20 mmHg. Normal right atrial pressure. There is no evidence of pulmonary hypertension. Great Vessels The pulmonary artery was not well visualized. There is mild dilatation of the ascending aorta measuring 4.40 cm. Venous The inferior vena cava is normal in size and collapses greater than 50% with inspiration. Pericardium/Pleural There is no evidence of pericardial effusion. Prior Study Comparison No significant change compared to prior study dated: 02/14/2022. Measurements 2D Linear Measurements IVSd: 1.74 0.6-0.9/0.6-1.0 cm LVIDd: 5.27 3.9-5.3/4.2-5.9 cm LVIDd Index: 2.42 2.4-3.2/2.2-3.1 cm/m2 LVIDs: 3.95 2.0-3.6 cm LVPWd: 0.93 0.7-1.1 cm LA Diam: 5.30 2.7-3.8/3.0-4.0 cm LAIDs Index: 2.43 1.5-2.3 cm/m2 LV Mass: 367.39 67-162/88-224 g LV Mass Index: 168.53 43-95/49-115 g/m2 LVOT Diam: 2.60 3.0+(-)1.3 cm 2D Volumes LA Vol: 55.50 2D Systolic Function EF 4C: 50.90 >55% EF 2C: 60.40 >55% EF BiP: 55.20 >55% Mitral Valve MV VTI: 0.28 MV Pk José Luis: 1.05 MV Mn José Luis: 0.64 MV Pk Grad: 4.00 MV Mn Grad: 2.00 MV Pk E: 0.88 MV Decel Time: 218.00 E'Lateral: 10.00 E'Medial: 6.75 E/E' Med: 13.10 E/E' Lat: 8.80 PHT: 64.00 MVA PHT: 3.44 MVA Continuity: 3.93 Decel [place]: 4.04 Aortic Valve AoV Pk José Luis: 1.43 AoV Pk Grad: 8.00 LVOT LVOT Pk José Luis: 0.83 LVOT Mn José Luis: 0.61 LVOT VTI: 0.21 LVOT Pk Grad: 3.00 LVOT Mn Grad: 2.00 LVOT Diam: 2.60 LVOT Area: 5.31 Diastolic Function MV Pk E: 0.88 E'Medial: 6.75 E/E' Med: 13.10 E' Laterial: 10.00 E/E' Lat: 8.80 Right Ventricle TAPSE (mm): 16.90 TVS' José Luis: 11.40 Tricuspid Valve TR Pk José Luis: 2.07 TR Pk Grad: 17.00 RA Press: 3.00 RVSP: 20.00 Great Vessels Aorta Sinus of Valsalva: 4.02 2.0-3.[address] [place]: 3.18 1.7-3.4 cm Ao Asc: 4.40 2.1-3.4 cm Updated in Other Vendor System with Status of Final Trever Hathaway MD electronically signed on 07/19/2023 12:29:09 PM with status of Final
== END ==
LOC: HO.CARD 07:50
PROVIDERS: PCP Registered Nurse; Visit Provider Internal Medicine Cardiovascular Disease
DX: I71.20 Thoracic aortic aneurysm, without rupture, unspecified (principal)
CPT/HCPCS: 93306

== ENCOUNTER → 2023-07-19 07:53 | Outpatient (BNV) | payer MEDICARE, SELFPAY | PROVIDERS: PCP Registered Nurse; Visit Provider Internal Medicine Cardiovascular Disease | DX: I36.1 Nonrheumatic tricuspid (valve) insufficiency (principal); I34.81 Nonrheumatic mitral (valve) annulus calcification | CPT/HCPCS: 93306 ==

== ENCOUNTER → 2023-08-08 23:59 | Outpatient (BNV) | payer MEDICARE, SELFPAY ==
--- NOTE | 2023-08-11 14:03 | A.OFFVIS_ITS ---
Intake Intake Visit Reasons: Remote Device Check- [facility] Allergies bacitracin [Bacitracin] Allergy (Mild, Verified 07/15/23 11:14) ITCHING Sulfa (Sulfonamide Antibiotics) Allergy (Mild, Verified 07/15/23 11:14) Itching [facility] Medical History Chronic atrial fibrillation Thoracic aortic aneurysm HTN (hypertension) Cardiac pacemaker in situ Chronic atrial flutter Surgical History History of hammer toe correction Hx of cholecystectomy History of permanent cardiac pacemaker placement Family History Father No problems noted. Mother Cancer Social History Alcohol intake: current Alcohol type: wine Patient Tobacco Use Status: Never used Tobacco Office Procedures Cardiac Device Check Cardiac Device Check Details: Remote pacemaker report generated 08/08/2023. Noted ventricular high rate is related to ventricular lead artifact. Advised pacemaker function is adequate [id number] Cardiac Device Interrogation, pacemaker Procedure code (CPT) selection complete Assessment & Plan Assessment & Plan (1) Cardiac pacemaker in situ: Code(s): Z95.0 - Presence of cardiac pacemaker Plan: See above Coding Level of Care Code Procedure Only Diagnoses Cardiac pacemaker in situ Z95.0 CPT Codes Cardiac Device Check - Cardiac Device 12: [id number] Cardiac Device Interrogation, pacemaker ([id number])
== END ==
PROVIDERS: PCP Registered Nurse; Visit Provider Internal Medicine Cardiovascular Disease
DX: I48.20 Chronic atrial fibrillation, unspecified (principal); Z95.0 Presence of cardiac pacemaker
CPT/HCPCS: 93294

== ENCOUNTER → 2023-11-10 23:59 | Outpatient (BNV) | payer MEDICARE, SELFPAY ==
--- NOTE | 2023-11-14 14:28 | MHC.OFFVIS ---
Intake Visit Reasons: REmote device check- [facility] Allergies bacitracin [Bacitracin] Allergy (Mild, Verified 07/15/23 11:14) ITCHING Sulfa (Sulfonamide Antibiotics) Allergy (Mild, Verified 07/15/23 11:14) Itching PFSH Medical History Chronic atrial fibrillation Thoracic aortic aneurysm HTN (hypertension) Cardiac pacemaker in situ Chronic atrial flutter Surgical History History of hammer toe correction Hx of cholecystectomy History of permanent cardiac pacemaker placement Family History Father No problems noted. Mother Cancer Social History Alcohol intake: current Alcohol type: wine Patient Tobacco Use Status: Never used Tobacco Office Procedures Cardiac Device Check Cardiac Device Check Details: Remote pacemaker report generated 11/10/2023. Few episodes of high ventricular rate consistent with atrial flutter with rapid ventricular response noted [id number] Cardiac Device Interrogation, pacemaker Procedure code (CPT) selection complete Assessment & Plan Assessment & Plan (1) Cardiac pacemaker in situ: Code(s): Z95.0 - Presence of cardiac pacemaker Category: Medical Plan: See above Coding Level of Care Code Procedure Only Diagnoses Cardiac pacemaker in situ Z95.0 CPT Codes Cardiac Device Check - Cardiac Device 12: [id number] Cardiac Device Interrogation, pacemaker ([id number])
== END ==
PROVIDERS: PCP Registered Nurse; Visit Provider Internal Medicine Cardiovascular Disease
DX: I48.92 Unspecified atrial flutter (principal); Z95.0 Presence of cardiac pacemaker
CPT/HCPCS: 93294

== ENCOUNTER 2023-11-18 09:43 | Emergency (ER) | payer MEDICARE, SELFPAY ==
[2023-11-18] VITALS (7 sets, daily range): BP systolic 122–185; BP diastolic 68–87; PULSE 75–95; RESP 18–20; TEMP 36.7–37.6; O2SAT 95–98; BMI 24.6
--- NOTE | ~2023-11-18 | XR_ITS ---
EXAMINATION: XR CHEST CLINICAL INFORMATION: Stroke COMPARISON: CTA chest 01/31/2019 TECHNIQUE: Frontal view of the chest was obtained. FINDINGS: Incomplete visualization of the chest, as patient could not hold position. The visualized heart and mediastinal borders appear normal. No focal consolidation. No pleural effusion. No pneumothorax. XR/XR chest 1V IMPRESSION: The visualized portions of the chest are unremarkable.
--- NOTE | ~2023-11-18 | CT_ITS ---
EXAMINATION: CT HEAD WITHOUT CONTRAST (STROKE PROTOCOL) CLINICAL INFORMATION: Stroke protocol. Confusion COMPARISON: None available. TECHNIQUE: Contiguous axial imaging was performed from the skull base to vertex without intravenous administration of contrast. This CT examination was performed using dose optimization techniques as appropriate, variously including the following: *Automated exposure control *Adjustment of mA and/or kV according to patient size (this includes techniques or standardized protocols for targeted exams where dose is matched to indication/reason for exam; i.e. extremities or head) *Use of iterative reconstruction technique DLP: 1089 mGy-cm FINDINGS: Exam limited due to motion. There is no evidence of an extra-axial collection. There is no evidence of intra or extra-axial hemorrhage. The ventricles and extra-axial CSF spaces are prominent suggestive of generalized atrophy. There is nonspecific periventricular white matter disease. No mass or mass effect or infarct is seen. No skull fracture. Visualized paranasal sinuses mastoid air cells and middle ears are clear. CT/CT head for stroke IMPRESSION: Limited exam due to motion. No acute findings. Generalized atrophy and nonspecific periventricular white matter disease. This critical result was discussed with Jordyn Callahan APRN at 1024 hours on 11/18/2023. It was ascertained that the content and urgency of the report was understood at the time of direct communication.
--- NOTE | 2023-11-18 09:51 | ECG_ITS ---
Test Reason : STROKE Blood Pressure : / mmHG Vent. Rate : 087 BPM Atrial Rate : 000 BPM P-R Int : 000 ms QRS Dur : 082 ms QT Int : 398 ms P-R-T Axes : 000 087 -14 degrees QTc Int : 478 ms Atrial fibrillation Septal infarct , age undetermined ST & T wave abnormality, consider anterolateral ischemia Abnormal ECG When compared with ECG of 08-NOV-2007 09:08, ST depression more prominent Referred By: Priti Nova Electronically Signed By:ROSIE MARTELL
[2023-11-18 09:54] LABS: Prothrombin Time Whole Bld POC 21.6 sec (11.1-13.5); ~PT, ~INR - Anti Coag Clinic 1.8 (0.9-1.1)
--- NOTE | 2023-11-18 10:07 | ED_ITS ---
HPI - Altered Mental Status General Chief Complaint: Stroke Stated Complaint: STROKE ALERT,LKW 20 MINUTES AGO,CONFUSION Time Seen by Provider: 11/18/23 09:50 Source: patient, family ( Spouse) and EMS Mode of arrival: EMS Limitations: altered mental status History of Present Illness HPI narrative: 73-year-old male history of TIA, history was limited by the patient due to confusion was obtained from spouse at the bedside recent treatment for lumbar spine osteomyelitis at [facility] finish 6 weeks' course of IV antibiotic followed by 6 weeks oral antibiotics and patient had post treatment lumbar spine biopsy and culture showed no growth after treatment, history of medication related delirium due to gabapentin and Percocet for chronic back pain, history of hypertension, history of atrial fibrillation patient is taking Coumadin 2.5 mg daily , on arrival INR was 1.8. called 911 early this morning because patient had an abrupt onset of confusion and having hard time to follow commands patient was at his base normal health till 09:00 this morning, said nothing unusual happened this morning. Patient was transported to the ED as a stroke due to sudden onset of confusion. Patient in the emergency department is disoriented, confused, follow commands intermittently, complaining of back pain and being thirsty repeatedly asking for water, patient has a very difficult limited physical exam but notice to move 4 extremity, with normal speech pattern. Related Data Home Medications ?Medication ?Instructions ?Recorded ?Confirmed multivitamin 1 tab PO DAILY 11/30/20 11/18/23 prazosin 2 mg capsule 2 mg PO BEDTIME 11/30/20 11/18/23 metoprolol succinate 100 mg 100 mg PO DAILY 12/06/21 11/18/23 tablet,extended release 24 hr thiamine HCl (vitamin B1) 100 mg 100 mg PO DAILY 12/06/21 11/18/23 tablet (Vitamin B-1) triamterene 37.5 1 tab PO DAILY 12/06/22 11/18/23 mg-hydrochlorothiazide 25 mg tablet acetaminophen 325 mg tablet 650 mg PO Q6H PRN Pain 11/18/23 11/18/23 (Tylenol) aspirin 81 mg tablet,delayed 81 mg PO DAILY 11/18/23 11/18/23 release atorvastatin 40 mg tablet 40 mg PO BEDTIME 11/18/23 11/18/23 diclofenac sodium 1 % topical gel 2 g topical QID PRN leg Pain 11/18/23 11/18/23 (Voltaren Arthritis Pain) gabapentin 100 mg capsule 200 mg PO TID 11/18/23 11/18/23 lidocaine 5 % topical patch 1 patch topical DAILY PRN Pain 11/18/23 11/18/23 oxycodone-acetaminophen 10 mg-325 1 tab PO Q6H PRN Pain 11/18/23 11/18/23 mg tablet warfarin 2.5 mg tablet (Jantoven) 2.5 mg PO DAILY@1800 11/18/23 11/18/23 Allergies Allergy/AdvReac Type Severity Reaction Status Date / Time bacitracin [Bacitracin] Allergy Mild ITCHING Verified 11/18/23 10:16 Sulfa (Sulfonamide Allergy Mild Itching Verified 11/18/23 10:16 Antibiotics) Review of Systems 2 Review of Systems: Yes Unobtainable due to mental status PMFSH Past Medical History Medical History Chronic atrial fibrillation Thoracic aortic aneurysm HTN (hypertension) Cardiac pacemaker in situ Chronic atrial flutter Surgical History History of hammer toe correction Hx of cholecystectomy History of permanent cardiac pacemaker placement Family History Family History Father No problems noted. Mother Cancer Social History Social History Alcohol intake: former Patient Tobacco Use Status: Never used Tobacco Smoked in Last 30 Days: No Use of substances other than those prescribed or required for medical reasons: No Advance Directives: No Advance Directives Information Provided: Yes Physical Exam ED Vital Signs: Vital Signs - 24 hr 11/18/23 10:15 11/18/23 10:33 11/18/23 13:36 Temperature 98.6 F 98.0 F Pulse Rate 86 78 Respiratory Rate 18 20 Blood Pressure 185/87 H 182/78 H Oxygen Delivery Method Room Air BMI result Body Mass Index 24.6 Vital signs have been reviewed and appear to be correct. Blood pressure elevated. Heart rate normal. Respiratory rate normal. Temperature normal. Oxygen saturation normal. Appearance: Alert, confused, disoriented to place and time, was able to recognize his . No acute distress. Head: Normal external exam. Normocephalic. Atraumatic. No Jenkins signs noted. No raccoon eyes noted Eyes: PERRLA. EOMI. Conjunctiva and sclera normal. Eyelids normal. ENT: TM's Normal. Pharynx normal. Uvula midline. Moist mucous membranes. No trismus noted. No drooling noted. No muffled voice noted. Neck: Normal inspection. Neck supple. FROM. No adenopathy. Thyroid Normal. No meningeal signs. No neck mass noted. CVS: Normal heart rate and rhythm. Heart sound normal. No murmurs noted. Pulses normal throughout. Respiratory: No respiratory distress. Painless inspiration. Breath sounds normal. No wheezes/rales/rhonchi noted. Chest nontender. No accessory muscle usage noted or decreased air movement noted. Abdomen: Soft and nontender. Bowel sounds normal in all 4 quadrants. No distention noted. No organomegaly noted. No visible injury noted. Back: severe lumbar spine tenderness along the whole lumbar area. Skin: Skin warm and dry. Normal skin color. Normal skin turgor. No rashes/lesions/lacerations noted. Extremities: No lower extremity edema. Extremities exhibit normal range of motion. Extremities nontender. Neuro: Cranial nerve exam: II-XII are grossly intact No motor deficit. No sensory deficit. Reflexes normal. NIH Stroke Scale Time: 11:04 Level of Consciousness: Alert Level of Consciousness Questions: Answers both questions correctly Level of Consciousness Commands: Performs one task correctly Best Gaze: Normal Visual: No visual loss Facial Palsy: Normal Motor Arm (Right): No drift Motor Arm (Left): No drift Motor Leg (Right): No drift Motor Leg (Left): No drift Limb Ataxia: Absent Sensory: Normal Best Language: No aphasia Dysarthia: Normal Extinction and Inattention: No abnormality Score: 1 Course Reevaluation(s) Reevaluation #1: 73-year-old male came in for abrupt onset of confusion and change mental status, initially came as stroke patient with NIH score of 1 and a neuro exam is not supporting diagnosis of CVA the case was discussed with Dr. Villalobos who agrees that the presentation is very atypical for stroke, on gabapentin and oxycodone For chronic back pain with history of medication causing delirium as per report. Initial lactic acid is elevated there is no sign of infection, patient just finish total of 12 weeks of antibiotic for osteomyelitis of the back followed by negative biopsy and culture done at [facility] that reported by the as well. Initial elevation of lactic acidosis that is slightly improved with hydration. Head CT/chest x-ray, and labs unrevealing. EKG show ST depression in the anterolateral leads patient has no chest pain and troponin is negative. Admit the patient for acute delirium secondary to medication Or severe back pain. Time: 13:36 Reevaluation #2: Patient was re-evaluated by myself according to the family at the bedside patient mentation is worsening patient is more confused especially after was given Dilaudid, because the patient's lumbar pain is out of proportion of his normal level of lumbar pain I spoke with Dr. Pittman and Dr. Villalobos both recommended to better off to transfer the patient to a facility where they have neurosurgical service. Case discussed with [facility] patient was accepted to [facility] accepted by Dr. cooper. Patient's lactic acidosis is improving with IV fluids 4.5, 3.3, 2.5. Time: 15:48 Medications Administered Discontinued Medications Generic Name Dose Route Start Last Admin Trade Name Freq PRN Reason Stop Dose Admin Hydromorphone HCl 1 mg 11/18/23 11:38 11/18/23 11:43 Hydromorphone Hcl 1 Mg/Ml Syringe IVPUSH 11/18/23 11:39 1 mg ONCE ONE Administration Protocol Sodium Chloride 1,000 mls @ 999 mls/hr 11/18/23 11:28 11/18/23 12:47 Ns IV 11/18/23 12:28 Infused .Q1H1M ONE Infusion Medical Decision Making Differential Diagnosis Differential Diagnoses: The differential diagnosis associated with the presentation includes ( CVA, sepsis, lactic acidosis, electrolyte abnormality, severe anemia, intracranial bleed, pneumonia, pneumothorax, ACS, recurrence of lumbar spine osteomyelitis , delirium due to medical condition, toxic metabolic encephalopathy.) Admission/Observation Consideration of admission/observation: Escalation of care including admission/observation considered Consult Healthcare Provider Management of the patient was discussed with: Hospitalist ( Dr. Cuellar) and Sanitarian ( Dr. Villalobos) Lab Data MDM Lab Attestation statement: I reviewed the patient's lab results. 11/18/23 10:12 11/18/23 10:12 Labs: Lab Results 11/18/23 11/18/23 11/18/23 Range/Units 09:49 10:12 10:30 WBC 7.5 (4.8-10.8) X10*3/uL RBC 4.29 L (4.60-5.80) X10*6/uL Hgb 13.7 L (14.0-18.0) g/dl Hct 39.1 L (42.0-52.0) % MCV 91.1 (80.0-98.0) fL MCH 31.9 (27.0-33.0) pg MCHC 35.0 (31.0-36.0) g/dl RDW 13.4 (11.0-16.0) % Plt Count 164 (160-400) X10*3/uL MPV 9.6 (9.4-12.4) fL Immature Gran % (Auto) 0.3 (0.0-0.4) % Neut % (Auto) 62.5 (45-73) % Lymph % (Auto) 24.9 (20-40) % [place] % (Auto) 11.3 H (2-11) % Eos % (Auto) 0.3 (0-4) % Baso % (Auto) 0.7 (0-2) % Lymph # (Auto) 1.9 (1.2-4.9) X10*3/uL [place] # (Auto) 0.9 (0.1-1.2) X10*3/uL Eos # (Auto) 0.0 (0.0-0.4) X10*3/uL Baso # (Auto) 0.1 (0.0-0.2) X10*3/uL Abs Immat Gran (auto) 0.02 (0.00-0.03) X10*3/uL Absolute Neuts (auto) 4.7 (2.0-8.3) x10*3/uL Absolute Nucleated RBC 0.000 (0.0-0.012) X10*3/uL Nucleated RBC % (auto) 0.0 (0.0-0.2) /100WBC PT 20.8 H (11.1-13.3) SEC Whole Blood PT 21.6 H (11.1-13.5) sec INR 1.7 H (0.9-1.1) Whole Blood INR 1.8 H (0.9-1.1) APTT 40.7 H (26.0-36.8) SEC Sodium 134 L (135-145) mmol/L Potassium 3.7 (3.3-5.1) mmol/L Chloride 94 L (96-108) mmol/L Carbon Dioxide 22 (22-29) mmol/L Anion Gap 22 H (12-20) BUN 11 (9-16) mg/dL Creatinine 0.72 (0.5-1.4) mg/dL Estim Creat Clear Calc 101.7 Estimated GFR > 60 Random Glucose 124 H (60-115) mg/dL Lactic Acid (0.5-2.0) mmol/L Calcium 10.4 H D (8.4-10.2) mg/dL Magnesium 1.6 (1.6-2.6) mg/dL Total Bilirubin 1.0 (0.0-1.0) mg/dL Direct Bilirubin 0.5 (0.0-0.5) mg/dL AST 33 (5-37) U/L ALT 25 (0-40) U/L Alkaline Phosphatase 87 (39-117) U/L Total Creatine Kinase 61 (38-174) U/L Troponin I High Sens 10.8 (<3.5-35.0) ng/L Total Protein 8.1 H (6.5-8.0) g/dL Albumin 3.9 (3.5-5.0) g/dL Lipase 34 (8-78) U/L Urine Color Yellow Urine Appearance Clear Urine pH 8.5 (5.0-9.0) Ur Specific [place] 1.015 (1.005-1.025) Urine Protein Negative (Neg-Trace) mg/dL Urine Glucose (UA) Negative (Negative) mg/dL Urine Ketones Negative (Negative) mg/dL Urine Blood Negative (Negative) Urine Nitrite Negative (Negative) Ur Leukocyte Esterase Negative (Negative) Urine Opiates Screen (Not Detect) Ur Buprenorphine Scrn (Not Detect) ng/mL Ur Oxycodone Screen (Not Detect) ng/mL Urine Methadone Screen (Not Detect) ng/mL Urine Fentanyl Screen (Not Detect) Ur Barbiturates Screen (Not Detect) Ur Phencyclidine Scrn (Not Detect) Ur Amphetamines Screen (Not Detect) U Benzodiazepines Scrn (Not Detect) Urine Cocaine Screen (Not Detect) U Marijuana (THC) Screen (Not Detect) Ethyl Alcohol < 10 mg/dL 11/18/23 11/18/23 11/18/23 Range/Units 10:45 11:23 12:43 WBC (4.8-10.8) X10*3/uL RBC (4.60-5.80) X10*6/uL Hgb (14.0-18.0) g/dl Hct (42.0-52.0) % MCV (80.0-98.0) fL MCH (27.0-33.0) pg MCHC (31.0-36.0) g/dl RDW (11.0-16.0) % Plt Count (160-400) X10*3/uL MPV (9.4-12.4) fL Immature Gran % (Auto) (0.0-0.4) % Neut % (Auto) (45-73) % Lymph % (Auto) (20-40) % [place] % (Auto) (2-11) % Eos % (Auto) (0-4) % Baso % (Auto) (0-2) % Lymph # (Auto) (1.2-4.9) X10*3/uL [place] # (Auto) (0.1-1.2) X10*3/uL Eos # (Auto) (0.0-0.4) X10*3/uL Baso # (Auto) (0.0-0.2) X10*3/uL Abs Immat Gran (auto) (0.00-0.03) X10*3/uL Absolute Neuts (auto) (2.0-8.3) x10*3/uL Absolute Nucleated RBC (0.0-0.012) X10*3/uL Nucleated RBC % (auto) (0.0-0.2) /100WBC PT (11.1-13.3) SEC Whole Blood PT (11.1-13.5) sec INR (0.9-1.1) Whole Blood INR (0.9-1.1) APTT (26.0-36.8) SEC Sodium (135-145) mmol/L Potassium (3.3-5.1) mmol/L Chloride (96-108) mmol/L Carbon Dioxide (22-29) mmol/L Anion Gap (12-20) BUN (9-16) mg/dL Creatinine (0.5-1.4) mg/dL Estim Creat Clear Calc Estimated GFR Random Glucose (60-115) mg/dL Lactic Acid 4.5 H* 3.3 H* (0.5-2.0) mmol/L Calcium (8.4-10.2) mg/dL Magnesium (1.6-2.6) mg/dL Total Bilirubin (0.0-1.0) mg/dL Direct Bilirubin (0.0-0.5) mg/dL AST (5-37) U/L ALT (0-40) U/L Alkaline Phosphatase (39-117) U/L Total Creatine Kinase (38-174) U/L Troponin I High Sens (<3.5-35.0) ng/L Total Protein (6.5-8.0) g/dL Albumin (3.5-5.0) g/dL Lipase (8-78) U/L Urine Color Urine Appearance Urine pH (5.0-9.0) Ur Specific [place] (1.005-1.025) Urine Protein (Neg-Trace) mg/dL Urine Glucose (UA) (Negative) mg/dL Urine Ketones (Negative) mg/dL Urine Blood (Negative) Urine Nitrite (Negative) Ur Leukocyte Esterase (Negative) Urine Opiates Screen Not Detected (Not Detect) Ur Buprenorphine Scrn Not Detected (Not Detect) ng/mL Ur Oxycodone Screen Positive H (Not Detect) ng/mL Urine Methadone Screen Not Detected (Not Detect) ng/mL Urine Fentanyl Screen Not Detected (Not Detect) Ur Barbiturates Screen Not Detected (Not Detect) Ur Phencyclidine Scrn Not Detected (Not Detect) Ur Amphetamines Screen Not Detected (Not Detect) U Benzodiazepines Scrn Not Detected (Not Detect) Urine Cocaine Screen Not Detected (Not Detect) U Marijuana (THC) Screen Not Detected (Not Detect) Ethyl Alcohol mg/dL 11/18/23 Range/Units 14:58 WBC (4.8-10.8) X10*3/uL RBC (4.60-5.80) X10*6/uL Hgb (14.0-18.0) g/dl Hct (42.0-52.0) % MCV (80.0-98.0) fL MCH (27.0-33.0) pg MCHC (31.0-36.0) g/dl RDW (11.0-16.0) % Plt Count (160-400) X10*3/uL MPV (9.4-12.4) fL Immature Gran % (Auto) (0.0-0.4) % Neut % (Auto) (45-73) % Lymph % (Auto) (20-40) % [place] % (Auto) (2-11) % Eos % (Auto) (0-4) % Baso % (Auto) (0-2) % Lymph # (Auto) (1.2-4.9) X10*3/uL [place] # (Auto) (0.1-1.2) X10*3/uL Eos # (Auto) (0.0-0.4) X10*3/uL Baso # (Auto) (0.0-0.2) X10*3/uL Abs Immat Gran (auto) (0.00-0.03) X10*3/uL Absolute Neuts (auto) (2.0-8.3) x10*3/uL Absolute Nucleated RBC (0.0-0.012) X10*3/uL Nucleated RBC % (auto) (0.0-0.2) /100WBC PT (11.1-13.3) SEC Whole Blood PT (11.1-13.5) sec INR (0.9-1.1) Whole Blood INR (0.9-1.1) APTT (26.0-36.8) SEC Sodium (135-145) mmol/L Potassium (3.3-5.1) mmol/L Chloride (96-108) mmol/L Carbon Dioxide (22-29) mmol/L Anion Gap (12-20) BUN (9-16) mg/dL Creatinine (0.5-1.4) mg/dL Estim Creat Clear Calc Estimated GFR Random Glucose (60-115) mg/dL Lactic Acid (0.5-2.0) mmol/L Calcium (8.4-10.2) mg/dL Magnesium (1.6-2.6) mg/dL Total Bilirubin (0.0-1.0) mg/dL Direct Bilirubin (0.0-0.5) mg/dL AST (5-37) U/L ALT (0-40) U/L Alkaline Phosphatase (39-117) U/L Total Creatine Kinase (38-174) U/L Troponin I High Sens 11.2 (<3.5-35.0) ng/L Total Protein (6.5-8.0) g/dL Albumin (3.5-5.0) g/dL Lipase (8-78) U/L Urine Color Urine Appearance Urine pH (5.0-9.0) Ur Specific [place] (1.005-1.025) Urine Protein (Neg-Trace) mg/dL Urine Glucose (UA) (Negative) mg/dL Urine Ketones (Negative) mg/dL Urine Blood (Negative) Urine Nitrite (Negative) Ur Leukocyte Esterase (Negative) Urine Opiates Screen (Not Detect) Ur Buprenorphine Scrn (Not Detect) ng/mL Ur Oxycodone Screen (Not Detect) ng/mL Urine Methadone Screen (Not Detect) ng/mL Urine Fentanyl Screen (Not Detect) Ur Barbiturates Screen (Not Detect) Ur Phencyclidine Scrn (Not Detect) Ur Amphetamines Screen (Not Detect) U Benzodiazepines Scrn (Not Detect) Urine Cocaine Screen (Not Detect) U Marijuana (THC) Screen (Not Detect) Ethyl Alcohol mg/dL Independent Interpretation I performed an independent interpretation of an: EKG ( Atrial fibrillation at 87 beats per minute, occasional PVCs, ST depression V3- V 6, no old EKG to compare.), Plain X-Ray ( Chest:The visualized portions of the chest are unremarkable. ) and CT Scan ( head:Limited exam due to motion. No acute findings. Generalized atrophy and nonspecific periventricular white matter disease. ) Discharge Plan Discharge Clinical Impression: Delirium due to general medical condition, Toxic metabolic encephalopathy, Intractable back pain Patient Disposition: [facility] Hospital Transfer Details: [facility] emergency department Prescriptions: No Action atorvastatin 40 mg tablet 40 mg PO BEDTIME oxycodone-acetaminophen 10-325 mg tablet 1 tab PO Q6H PRN (Reason: Pain) gabapentin 100 mg capsule 200 mg PO TID acetaminophen [Tylenol] 325 mg Tablet 650 mg PO Q6H PRN (Reason: Pain) warfarin [Jantoven] 2.5 mg tablet 2.5 mg PO DAILY@1800 aspirin 81 mg Tablet,Delayed Release (Dr/Ec) 81 mg PO DAILY diclofenac sodium [Voltaren Arthritis Pain] 1 % Gel 2 g TOPICAL QID PRN (Reason: leg Pain) Rx Instructions: apply to single elbow, wrist or hand; for hand includes palm/fingers/back of hand lidocaine 5 % adhesive patch,medicated 1 patch topical DAILY PRN (Reason: Pain) Rx Instructions: leave on most painful area for up to 12 hrs multivitamin Tablet 1 tab PO DAILY prazosin 2 mg capsule 2 mg PO BEDTIME thiamine HCl (vitamin B1) [Vitamin B-1] 100 mg tablet 100 mg PO DAILY metoprolol succinate 100 mg tablet extended release 24 hr 100 mg PO DAILY triamterene-hydrochlorothiazid 37.5-25 mg tablet 1 tab PO DAILY Print Language: Bengali
[2023-11-18 10:16] LABS: MANUAL DIFF FLAG NO
[2023-11-18 10:19] LABS: Basophils Absolute Auto 0.1 X10*3/uL (0.0-0.2); Basophils Percent Auto 0.7 % (0-2); Eosinophils Percent Auto 0.3 % (0-4); Hematocrit 39.1 % (42.0-52.0); Hemoglobin 13.7 g/dl (14.0-18.0); Imm Gran Abs Auto 0.02 X10*3/uL (0.00-0.03); Imm Gran Pct Auto 0.3 % (0.0-0.4); Lymphocytes Absolute Auto 1.9 X10*3/uL (1.2-4.9); Lymphocytes Percent Auto 24.9 % (20-40); Mean Corpuscular Hemoglobin 31.9 pg (27.0-33.0); Mean Corpuscular Volume 91.1 fL (80.0-98.0); Mean Platelet Volume 9.6 fL (9.4-12.4); Monocytes Absolute Auto 0.9 X10*3/uL (0.1-1.2); Monocytes Percent Auto 11.3 % (2-11); Neutrophils Absolute Auto 4.7 x10*3/uL (2.0-8.3); Neutrophils Percent Auto 62.5 % (45-73); Platelet Count 164 X10*3/uL (160-400); Red Blood Count 4.29 X10*6/uL (4.60-5.80); Red Cell Distribution Width 13.4 % (11.0-16.0); White Blood Count 7.5 X10*3/uL (4.8-10.8)
[2023-11-18 10:24] LABS: INTERNATIONAL NORM RATIO 1.7 (0.9-1.1); Prothrombin Time 20.8 SEC (11.1-13.3)
[2023-11-18 10:26] LABS: Partial Thromboplastin Time 40.7 SEC (26.0-36.8)
[2023-11-18 10:27] LABS: Stroke Lab Use COMPLETE
[2023-11-18 10:39] LABS: Troponin-I High Sensitivity 10.8 ng/L (<3.5-35.0)
[2023-11-18 10:41] LABS: Anion Gap 22 (12-20); Blood Urea Nitrogen 11 mg/dL (9-16); Calcium 10.4 mg/dL (8.4-10.2); Carbon Dioxide 22 mmol/L (22-29); Chloride 94 mmol/L (96-108); Creatinine Clr Calc Pharmacy 101.7; Estimated Glomerular Filt Rate > 60; Glucose Random 124 mg/dL (60-115); Potassium 3.7 mmol/L (3.3-5.1); Sodium 134 mmol/L (135-145)
[2023-11-18 10:46] LABS: Appearance Urine Clear; Color Urine Yellow; Glucose Urine UA Negative (Negative); Leukocyte Esterase Urine Negative (Negative); Nitrite Urine Negative (Negative); PH 8.5 (5.0-9.0); Specific Gravity - Urine 1.015 (1.005-1.025); Urine Blood Negative (Negative); Urine Ketones Negative (Negative); Urine Protein Negative (Neg-Trace)
[2023-11-18 11:03] LABS: Alanine Aminotransferase 25 U/L (0-40); Albumin Level 3.9 g/dL (3.5-5.0); Alkaline Phosphatase 87 U/L (39-117); Aspartate Amino Transferase 33 U/L (5-37); Bilirubin Direct 0.5 mg/dL (0.0-0.5); Ethanol < 10 mg/dL; Lipase 34 U/L (8-78); Magnesium 1.6 mg/dL (1.6-2.6); Total Protein 8.1 g/dL (6.5-8.0)
[2023-11-18 11:05] LABS: Lactic Acid 4.5 mmol/L (0.5-2.0)
[2023-11-18] MEDS: HYDROmorphone HCl 1 MG/ML SYRINGE IVPUSH (11:43)
[2023-11-18] MEDS: 0.9 % Sodium Chloride 1,000 ML 999 ML IV (11:44)
[2023-11-18 11:56] LABS: Amphetamine Screen Urine Not Detected (Not Detect); Barbiturates, Urine Not Detected (Not Detect); Benzodiazepines Screen Urine Not Detected (Not Detect); Buprenorphine Scr Not Detected (Not Detect); Cannabinoid Screen Urine Not Detected (Not Detect); Cocaine Screen Urine Not Detected (Not Detect); Fentanyl, urine Not Detected (Not Detect); Methadone Screen, Urine Not Detected (Not Detect); Opiate Screen Urine Not Detected (Not Detect); Oxycodone Screen Urine Positive (Not Detect); Phencyclidine Screen Urine Not Detected (Not Detect)
--- NOTE | 2023-11-18 11:58 | PC.NURSE ---
assumed care of pt 1100 pt continues to be confused, feels people touching him when they are not. pt compains of 10/10 thoracic back pain. pt had CXR which pt did not tolerate well due to pain. pt refuses to be repositioned/changed over into hospital attire 2ndry to pain. Per pt pt takes percocet 10-325, last dose 0530 today. 1mg hydromorphone ordered in addition to IVF to critical lactic of 4.2. pt medicated per SEP.
--- NOTE | 2023-11-18 12:49 | PC.NURSE ---
pt called this nurse into room,. observed pt looking up at ceiling telling t/w to move them a quarter turn to the left and they will come down reoriented pt to surroundings. f/u lactic obtained. pt easily agitated with lab draws. pt at bedside- awaiting lab results. aware
[2023-11-18 12:50] LABS: Reflex Lactate? Lactic Acid Added
[2023-11-18 13:10] LABS: Lactic Acid 3.3 mmol/L (0.5-2.0)
--- NOTE | 2023-11-18 13:48 | P.HPHOSP_ITS ---
History of Present Illness Date of Service: 11/18/23 Attending physician on admission: Katharina Pittman Chief Complaint: AMS Pt is a 73-year-old male with a PMH significant for?persistent AFib on Coumadin, who presents to the ED with? In the ED pt was Labs were significant for CXR showed CT? EKG demonstrated atrial fibrillation with nonspecific ST and T-wave abnormalities Pt was treated with Pt will be admitted to the hospital [facility] Medical History Chronic atrial fibrillation Thoracic aortic aneurysm HTN (hypertension) Cardiac pacemaker in situ Chronic atrial flutter Family History Father No problems noted. Mother Cancer Surgical History History of hammer toe correction Hx of cholecystectomy History of permanent cardiac pacemaker placement Social History Alcohol intake: former Patient Tobacco Use Status: Never used Tobacco Smoked in Last 30 Days: No Use of substances other than those prescribed or required for medical reasons: No Advance Directives: No Advance Directives Information Provided: Yes Meds Allergies Allergy/AdvReac Type Severity Reaction Status Date / Time bacitracin [Bacitracin] Allergy Mild ITCHING Verified 11/18/23 10:16 Sulfa (Sulfonamide Allergy Mild Itching Verified 11/18/23 10:16 Antibiotics) Home Medications ?Medication ?Instructions ?Recorded ?Confirmed ?Last Taken ?Type multivitamin 1 tab PO DAILY 11/30/20 06/29/23 Unknown History prazosin 2 mg capsule 2 mg PO BID 11/30/20 06/29/23 Unknown History warfarin 5 mg tablet 5 mg PO DAILY 11/30/20 06/29/23 Unknown History metoprolol succinate 100 mg 200 mg PO DAILY 12/06/21 06/29/23 Unknown History tablet,extended release 24 hr sour mcleod extract 1,000 mg mg PO 12/06/21 06/29/23 Unknown History capsule (Tart Mcleod Extract) thiamine HCl (vitamin B1) 100 mg 100 mg PO BID 12/06/21 06/29/23 Unknown History tablet (Vitamin B-1) magnesium oxide 400 mg (241.3 mg 400 mg PO DAILY 12/06/22 06/29/23 Unknown History magnesium) tablet metformin 1,000 mg tablet 1,000 mg PO BID 12/06/22 06/29/23 Unknown History triamterene 37.5 1 tab PO DAILY 12/06/22 06/29/23 Unknown History mg-hydrochlorothiazide 25 mg tablet ursodiol 500 mg tablet 500 mg PO TID 12/06/22 06/29/23 Unknown History Physical Exam 2 Vital Signs and Narrative: Vital Signs: Last Vital Signs Temp 98.0 F 11/18/23 13:36 Pulse 78 11/18/23 13:36 Resp 20 11/18/23 13:36 BP 182/78 H 11/18/23 13:36 O2 Del Method Room Air 11/18/23 13:36 BMI result Body Mass Index 24.6 Results Labs 11/18/23 10:12 11/18/23 10:12 Labs: Laboratory Results - last 24 hr 11/18/23 11/18/23 11/18/23 09:49 10:12 10:30 MCV 91.1 MCH 31.9 MCHC 35.0 RDW 13.4 Plt Count 164 MPV 9.6 Immature Gran % (Auto) 0.3 Neut % (Auto) 62.5 Lymph % (Auto) 24.9 [place] % (Auto) 11.3 H Eos % (Auto) 0.3 Baso % (Auto) 0.7 Lymph # (Auto) 1.9 [place] # (Auto) 0.9 Eos # (Auto) 0.0 Baso # (Auto) 0.1 Abs Immat Gran (auto) 0.02 Absolute Neuts (auto) 4.7 Absolute Nucleated RBC 0.000 Nucleated RBC % (auto) 0.0 PT 20.8 H Whole Blood PT 21.6 H INR 1.7 H Whole Blood INR 1.8 H APTT 40.7 H Anion Gap 22 H Estim Creat Clear Calc 101.7 Estimated GFR > 60 Random Glucose 124 H Lactic Acid Calcium 10.4 H D Magnesium 1.6 Total Bilirubin 1.0 Direct Bilirubin 0.5 AST 33 ALT 25 Alkaline Phosphatase 87 Total Creatine Kinase 61 Troponin I High Sens 10.8 Total Protein 8.1 H Albumin 3.9 Lipase 34 Urine Color Yellow Urine Appearance Clear Urine pH 8.5 Ur Specific [place] 1.015 Urine Protein Negative Urine Glucose (UA) Negative Urine Ketones Negative Urine Blood Negative Urine Nitrite Negative Ur Leukocyte Esterase Negative Urine Opiates Screen Ur Buprenorphine Scrn Ur Oxycodone Screen Urine Methadone Screen Urine Fentanyl Screen Ur Barbiturates Screen Ur Phencyclidine Scrn Ur Amphetamines Screen U Benzodiazepines Scrn Urine Cocaine Screen U Marijuana (THC) Screen Ethyl Alcohol < 10 11/18/23 11/18/23 11/18/23 10:45 11:23 12:43 MCV MCH MCHC RDW Plt Count MPV Immature Gran % (Auto) Neut % (Auto) Lymph % (Auto) [place] % (Auto) Eos % (Auto) Baso % (Auto) Lymph # (Auto) [place] # (Auto) Eos # (Auto) Baso # (Auto) Abs Immat Gran (auto) Absolute Neuts (auto) Absolute Nucleated RBC Nucleated RBC % (auto) PT Whole Blood PT INR Whole Blood INR APTT Anion Gap Estim Creat Clear Calc Estimated GFR Random Glucose Lactic Acid 4.5 H* 3.3 H* Calcium Magnesium Total Bilirubin Direct Bilirubin AST ALT Alkaline Phosphatase Total Creatine Kinase Troponin I High Sens Total Protein Albumin Lipase Urine Color Urine Appearance Urine pH Ur Specific [place] Urine Protein Urine Glucose (UA) Urine Ketones Urine Blood Urine Nitrite Ur Leukocyte Esterase Urine Opiates Screen Not Detected Ur Buprenorphine Scrn Not Detected Ur Oxycodone Screen Positive H Urine Methadone Screen Not Detected Urine Fentanyl Screen Not Detected Ur Barbiturates Screen Not Detected Ur Phencyclidine Scrn Not Detected Ur Amphetamines Screen Not Detected U Benzodiazepines Scrn Not Detected Urine Cocaine Screen Not Detected U Marijuana (THC) Screen Not Detected Ethyl Alcohol Imaging Radiologist's Impressions: Impressions Head CT 11/18/23 10:09 IMPRESSION: Limited exam due to motion. No acute findings. Generalized atrophy and nonspecific periventricular white matter disease. This critical result was discussed with Jordyn Callahan APRN at 1024 hours on 11/18/2023. It was ascertained that the content and urgency of the report was understood at the time of direct communication. Chest X-Ray 11/18/23 11:43 IMPRESSION: The visualized portions of the chest are unremarkable.
[2023-11-18 14:46] LABS: Reflex Lactate? Lactic Acid Added
--- NOTE | 2023-11-18 15:04 | MHC.EDTECH ---
The POC and INR were done before I assumed care of this pt, paris Almaguer stated that these were done upon arrival of the pt per stroke protocol
--- NOTE | 2023-11-18 15:17 | PC.NURSE ---
pt was seen by RICH Islas and MD Pittman for potential admission to [facility]. PEr MD pittman consulted w/ neuro MD Villalobos,and pt requires more extensive neurological workup than can be done at [facility]. MD Nova currently arranging transfer to [facility]. pt continues to hallucinate, no clear thought pattern to sentences. not noriented mto placeor time
--- NOTE | 2023-11-18 15:23 | PHA.MEDREC ---
Pharmacy Consult ? Medication Reconciliation Pharmacy has completed the medication reconciliation. Spoke to patient's to confirm meds.
[2023-11-18 15:31] LABS: Troponin-I High Sensitivity 11.2 ng/L (<3.5-35.0)
--- NOTE | 2023-11-18 15:44 | PC.NURSE ---
pt accepted to [facility] as an ED to Ed transfer, pt accepted by MD Souza.
[2023-11-18 15:52] LABS: ~Lactic Acid-LAB USE ONLY 2.5 mmol/L (0.5-2.0)
--- NOTE | 2023-11-18 16:01 | PC.NURSE ---
pt changed into hospital gown, pt cleaned and repositioned in bed with the help of pt and dtr
[2023-11-18 17:02] LABS: Reflex Lactate? 2 Y
--- NOTE | 2023-11-18 18:18 | PC.NURSE ---
pt transferred to [facility] via krishna SURESH
--- NOTE | 2023-11-18 18:34 | PC.NURSE ---
nurse to nurse report given to Rosina Goodwin RN.
== END 2023-11-18 18:29 | disposition short-term general hospital (02) ==
PROVIDERS: Emergency Medicine; Emergency Provider Emergency Medicine Emergency Medical Services; PCP Registered Nurse
DX: R41.82 Altered mental status, unspecified (principal); R41.0 Disorientation, unspecified; G92.8 Other toxic encephalopathy; M54.50 Low back pain, unspecified; G89.4 Chronic pain syndrome; I71.23 Aneurysm of the descending thoracic aorta, without rupture; R29.701 NIHSS score 1; I10 Essential (primary) hypertension; I48.20 Chronic atrial fibrillation, unspecified; Z95.0 Presence of cardiac pacemaker; Z79.01 Long term (current) use of anticoagulants; Z79.82 Long term (current) use of aspirin; Z79.02 Long term (current) use of antithrombotics/antiplatelets; Z79.899 Other long term (current) drug therapy
CPT/HCPCS: 36415; 70450; 71045; 80048; 80076; 80307; 81003; 82550; 83605; 83690; 83735; 84484; 85025; 85610; 85730; 87040; 93005; 96361; 96374; 99285; J1170

== ENCOUNTER → 2023-11-18 09:51 | Outpatient (BNV) | payer MEDICARE, SELFPAY | PROVIDERS: Emergency Provider Emergency Medicine Emergency Medical Services; PCP Registered Nurse; Visit Provider Internal Medicine | DX: R94.31 Abnormal electrocardiogram [ECG] [EKG] (principal) | CPT/HCPCS: 93010 ==

== ENCOUNTER 2024-01-21 09:10 | Observation (INO) | payer MEDICARE, SELFPAY ==
[2024-01-21] VITALS (7 sets, daily range): BP systolic 158–192; BP diastolic 72–96; PULSE 65–74; RESP 11–18; TEMP 36.4–37; O2SAT 96–100; BMI 24.3; BMI 23.8
--- NOTE | 2024-01-21 | EEG_ITS ---
This is a 48-hour ambulatory EEG performed on February 18. The patient kept a diary of each day and did not report any significant events. During the EEG, wakefulness and sleep were noted with no obvious abnormality, paroxysmal tendency, sharp waves or spikes. Cardiac lead did not reveal any significant abnormality. IMPRESSION: Unremarkable 48-hour ambulatory EEG with patient not reporting any significant events. MD NEETA Person/CORAL / [id number]
--- NOTE | ~2024-01-21 | CT_ITS ---
EXAMINATION: CT head without contrast CTA head and neck with and without contrast CLINICAL INFORMATION: Slurred speech COMPARISON: CT head on 11/18/2023 TECHNIQUE: Test bolus sequences followed by intravenous administration of 70 mL of Omnipaque 350 contrast. Helical imaging was performed in the axial plane from the skull vertex to the thoracic inlet. Delayed postcontrast imaging of the head was also performed. The data was processed at the cytology technologist workstation for generation of MIP sequences. Angled MIPs and volume rendered reformatted images were also generated at an offline 3D workstation. Stenoses are assessed in accordance with NASCET criteria unless otherwise indicated. This CT examination was performed using dose optimization techniques appropriate, variously including the following: *Automated exposure control *Adjustment of mA and/or kV according to patient size (this includes techniques or standardized protocols for targeted exams where dose is matched to indication/reason for exam; i.e. extremities or head) *Use of iterative reconstruction technique DLP: 1620 + 1132 mGy-cm FINDINGS: BRAIN: Evaluation is limited by technique. No acute intracranial hemorrhage or infarct. The magallon-white matter differentiation is preserved. Diffuse widening of the sulci with associated mild ex vacuo dilation of the ventricles compatible with global cerebral atrophy. No midline shift or hydrocephalus. No acute extra-axial fluid collections. Osseous structures are unremarkable. Sequela bilateral lens replacement. Otherwise, no orbital pathology. The paranasal sinuses are clear. The mastoid air cells are also clear. Atherosclerotic calcifications of the bilateral carotid siphons and visualized intracranial vertebral arteries. CTA NECK: Motion artifact is present. Three-vessel aortic arch. Atherosclerotic calcifications scattered through the segments of the great vessels without significant stenosis. The origins and cervical segments of the common carotid arteries are patent. The common carotid artery bifurcations demonstrate mural calcifications extending into the proximal segments of the internal carotid arteries without significant stenosis. The remaining segments of the internal carotid arteries are patent. Nondominant right vertebral artery. The origins and cervical segments of the vertebral arteries are patent bilaterally. No hemodynamically significant stenosis, dissection, or aneurysm. The visualized branches of the external carotid arteries are unremarkable. CTA HEAD: Moderate atherosclerotic calcifications of the bilateral carotid siphons. Anterior circulation: The petrous, cavernous, and supraclinoid segments of the internal carotid arteries are patent bilaterally. The major branches of the anterior and middle cerebral arteries as well as the anterior communicating artery complex are patent. No large vessel occlusion, saccular aneurysm, or dissection. Posterior circulation: The right V4 is hypoplastic however appears patent. The left intracranial vertebral artery is normal in caliber and patent. The basilar artery is normal in caliber and course. The posterior cerebral and superior cerebellar arteries arise normally from the basilar summit. Left posterior cerebral artery. No aneurysm. On delayed imaging, the venous structures demonstrate normal contrast opacification. No filling defect. No abnormal intraparenchymal enhancement. Soft tissues: No suspicious neck mass or cervical adenopathy. Lungs: Clear. Bones: No acute osseous abnormality. No lytic or blastic osseous lesions. Multilevel degenerative changes of the visualized spine. CT/CT angio head neck stroke IMPRESSION: Within the limitations of this study, -CT head demonstrates no acute intracranial hemorrhage or edematous infarct. -CTA head and neck demonstrates no large vessel occlusion or high-grade stenosis within the intracranial or cervical arterial vasculature.
--- NOTE | ~2024-01-21 | XR_ITS ---
EXAMINATION: PORTABLE CHEST 1 VIEW CLINICAL INFORMATION: chest pain. COMPARISON: 11/18/2003. TECHNIQUE: Portable frontal view of the chest was obtained. FINDINGS: Lungs mildly hypoexpanded but no superimposed focal infiltrate, effusion, edema, or pneumothorax. Cardiac silhouette remains prominent with vascular calcification in aorta. Dual-lead pacemaker seen with lead tips overlying expected right atrium and right ventricle. Degenerative changes in the spine XR/XR chest 1V IMPRESSION: Chronic appearing and postoperative changes but no acute superimposed process.
--- NOTE | 2024-01-21 09:15 | ECG_ITS ---
Test Reason : WEAKNESS Blood Pressure : / mmHG Vent. Rate : 072 BPM Atrial Rate : 000 BPM P-R Int : 000 ms QRS Dur : 088 ms QT Int : 430 ms P-R-T Axes : 000 091 -12 degrees QTc Int : 470 ms Atrial fibrillation with premature ventricular or aberrantly conducted complexes Rightward axis Nonspecific ST abnormality Abnormal QRS-T angle, consider primary T wave abnormality Abnormal ECG When compared with ECG of 18-NOV-2023 10:10, ST no longer depressed in Anterior leads Referred By: Avinash Gresham Electronically Signed By:Aristides Leo
--- NOTE | 2024-01-21 09:33 | ED_ITS ---
HPI - General Adult General Chief complaint: General Medical Stated complaint: stroke concern Time Seen by Provider: 01/21/24 09:32 Source: family Mode of arrival: wheelchair Limitations: altered mental status History of Present Illness HPI narrative: This is a 73 years old male brought in by the because slurred speech and confusion since 4 o'clock in the morning. Patient as history of bacteremia strep sanguinis and history of spinal abscess for which was admitted from November 17 to December 05 at [facility], he was Omar Raza and vancomycin for 6 weeks, he completed antibiotic on January 04. He has been doing well at home and today about 04:00 the noted that he has difficulty expressing himself. Patient has history of AFib and is anticoagulated with apixaban. Onset (ago): hour(s) (5) Radiation: non-radiation Severity: moderate Pain Consistency: other (Improving) Relieving factors: none Exacerbating factors: none Associated symptoms: denies other symptoms Treatments prior to arrival: none Related Data Home Medications ?Medication ?Instructions ?Recorded ?Confirmed prazosin 2 mg capsule 2 mg PO BEDTIME 11/30/20 01/21/24 metoprolol succinate 100 mg 100 mg PO DAILY 12/06/21 01/21/24 tablet,extended release 24 hr acetaminophen 325 mg tablet 650 mg PO Q6H PRN Pain 11/18/23 01/21/24 (Tylenol) apixaban 5 mg tablet (Eliquis) 5 mg PO BID 01/21/24 01/21/24 atorvastatin 20 mg tablet 20 mg PO BEDTIME 01/21/24 01/21/24 cyanocobalamin (vitamin B-12) 1,000 mcg PO DAILY 01/21/24 01/21/24 1,000 mcg tablet (Vitamin B-12) docusate sodium 100 mg capsule 100 mg PO BID Constipation 01/21/24 01/21/24 duloxetine 30 mg capsule,delayed 30 mg PO DAILY 01/21/24 01/21/24 release ferrous sulfate 324 mg (65 mg 324 mg PO MOWEFR 01/21/24 01/21/24 iron) tablet,delayed release hydrochlorothiazide 12.5 mg capsule 12.5 mg PO DAILY 01/21/24 01/21/24 miconazole nitrate 2 % topical 1 appl topical DAILY PRN Rash 01/21/24 01/21/24 powder oxycodone 5 mg tablet 5 mg PO Q6H PRN Pain 01/21/24 01/21/24 quetiapine 25 mg tablet 25 mg PO BEDTIME 01/21/24 01/21/24 vitamin D3 95 mcg (3,800 1 tab PO DAILY 01/21/24 01/21/24 unit)-folic acid 1 mg tablet (Cholecal DF) Allergies Allergy/AdvReac Type Severity Reaction Status Date / Time bacitracin [Bacitracin] Allergy Mild ITCHING Verified 01/21/24 09:17 Sulfa (Sulfonamide Allergy Mild Itching Verified 01/21/24 09:17 Antibiotics) hydromorphone AdvReac Hallucinati Verified 01/21/24 09:17 ons Review of Systems 2 Constitutional: Constitutional: Reports no additional constitutional complaints ENT: Reports system reviewed and no additional complaints, except as documented Respiratory: Respiratory: Reports no additional respiratory complaints [facility] Past Medical History Attestation statement: The following information was validated with the patient. [facility] Narrative: Spinal abscess/bacteremia/chronic atrial fibrillation on apixaban/hypertension Medical History Chronic atrial fibrillation Thoracic aortic aneurysm HTN (hypertension) Cardiac pacemaker in situ Chronic atrial flutter Surgical History History of hammer toe correction Hx of cholecystectomy History of permanent cardiac pacemaker placement Family History Family History Father No problems noted. Mother Cancer Social History Social History Alcohol intake: former Patient Tobacco Use Status: Never used Tobacco Smoked in Last 30 Days: No Advance Directives: No Advance Directives Information Provided: No Do you have a plan to hurt others: No Plan Physical Exam ED Vital Signs: Vital Signs - 24 hr 01/21/24 09:13 01/21/24 09:37 01/21/24 10:21 Temperature 97.7 F 97.7 F 97.7 F Pulse Rate 74 74 74 Respiratory Rate 18 18 18 Blood Pressure 188/92 H 188/92 H 188/92 H Pulse Oximetry 100 100 100 Oxygen Delivery Method Room Air Room Air Room Air BMI result Body Mass Index 24.3 Const General: cooperative Nutritional Appearance: average body habitus Orientation/consciousness: patient oriented x3 Limitations: no limitations HENMT Head: Yes normal to inspection Face and sinus: Yes normal facial exam Mouth: Normal oral and palatal mucosa present Throat: Yes posterior oropharynx normal Neck Neck: Yes normal visual inspection Chest Chest palpation & inspection: normal inspection of the chest Resp Effort & Inspection: normal respiratory effort Auscultation: clear to auscultation bilaterally Cardio Jugular venous distension: no JVD Rate: Other (Irregular) Rhythm: abnormal rhythm GI Inspection: Yes normal to inspection Palpation (GI): Soft to palpation Auscultation: normal bowel sounds Skin General skin exam: no rashes or lesions noted and elasticity normal Lesions: no lesions Rashes: no rashes Neuro General: patient oriented x3 Cranial nerves: Yes CN's II-XII intact bilaterally Motor exam (neuro): 5/5 motor strength present throughout Medications Administered Discontinued Medications Generic Name Dose Route Start Last Admin Trade Name Freq PRN Reason Stop Dose Admin Iohexol 100 ml 01/21/24 10:07 01/21/24 10:07 Iohexol 350 Mg/Ml 100 Ml Infus..Btl IV 01/21/24 10:08 70 ml ONCE ONE Administration Medical Decision Making Medical Decision Making [facility] Narrative: Patient presented with slurred speech confusion, we will do labs CT UA Differential Diagnosis Differential Diagnoses: The differential diagnosis associated with the presentation includes Differential diagnosis is broad include TIA/CVA/intracranial bleed/bacteremia. He has not a candidate for tPA because he is anticoagulated with apixaban Admission/Observation Consideration of admission/observation: Escalation of care including admission/observation considered Consult Healthcare Provider Management of the patient was discussed with: Hospitalist Lab Data [facility] Lab Attestation statement: I reviewed the patient's lab results. 01/21/24 09:50 01/21/24 09:50 Labs: Lab Results 01/21/24 01/21/24 Range/Units 09:50 10:19 WBC 7.0 (4.8-10.8) X10*3/uL RBC 3.41 L D (4.60-5.80) X10*6/uL Hgb 11.1 L (14.0-18.0) g/dl Hct 32.4 L (42.0-52.0) % MCV 95.0 (80.0-98.0) fL MCH 32.6 (27.0-33.0) pg MCHC 34.3 (31.0-36.0) g/dl RDW 14.3 (11.0-16.0) % Plt Count 170 (160-400) X10*3/uL MPV 10.2 (9.4-12.4) fL Immature Gran % (Auto) 0.1 (0.0-0.4) % Neut % (Auto) 64.2 (45-73) % Lymph % (Auto) 22.5 (20-40) % [place] % (Auto) 10.9 (2-11) % Eos % (Auto) 1.4 (0-4) % Baso % (Auto) 0.9 (0-2) % Lymph # (Auto) 1.6 (1.2-4.9) X10*3/uL [place] # (Auto) 0.8 (0.1-1.2) X10*3/uL Eos # (Auto) 0.1 (0.0-0.4) X10*3/uL Baso # (Auto) 0.1 (0.0-0.2) X10*3/uL Abs Immat Gran (auto) 0.01 (0.00-0.03) X10*3/uL Absolute Neuts (auto) 4.5 (2.0-8.3) x10*3/uL Absolute Nucleated RBC 0.000 (0.0-0.012) X10*3/uL Nucleated RBC % (auto) 0.0 (0.0-0.2) /100WBC ESR 57 H (0-15) MM/HR Sodium 134 L (135-145) mmol/L Potassium 3.7 (3.3-5.1) mmol/L Chloride 96 (96-108) mmol/L Carbon Dioxide 29 (22-29) mmol/L Anion Gap 13 (12-20) BUN 12 (9-16) mg/dL Creatinine 0.76 (0.5-1.4) mg/dL Estim Creat Clear Calc 96.3 Estimated GFR > 60 Random Glucose 192 H (60-115) mg/dL Calcium 9.9 (8.4-10.2) mg/dL Total Bilirubin 0.8 (0.0-1.0) mg/dL AST 22 (5-37) U/L ALT 13 (0-40) U/L Alkaline Phosphatase 88 (39-117) U/L Troponin I High Sens 16.4 (<3.5-35.0) ng/L Total Protein 7.9 (6.5-8.0) g/dL Albumin 3.7 (3.5-5.0) g/dL Urine Color Yellow Urine Appearance Clear Urine pH 7.5 (5.0-9.0) Ur Specific [place] 1.010 (1.005-1.025) Urine Protein Negative (Neg-Trace) mg/dL Urine Glucose (UA) Negative (Negative) mg/dL Urine Ketones Negative (Negative) mg/dL Urine Blood Negative (Negative) Urine Nitrite Negative (Negative) Ur Leukocyte Esterase Negative (Negative) Urine RBC 0-2 (0-2) /HPF Urine WBC 0-5 (0-5) /HPF Ur Squamous Epith Cells 0-2 (0-2) /HPF Urine Bacteria None Seen (None Seen) Hyaline Casts 0-2 (0-2) /LPF Independent Interpretation I performed an independent interpretation of an: EKG Interpretation: AFib with a controlled rate 72 Radiology Impression Discussion of test interpretation with radiology: I have reviewed the radiologist's reading. Independent Historian Clinical information obtained from an independent historian. History obtained from or confirmed by: Spouse External Record Review External record reviewed: Inpatient record Chronic Conditions Patient?s care impacted by: Hypertension Discharge Plan Discharge Clinical Impression: Brain TIA Patient Disposition: Admitted As Inpatient Interventions: Admission Worksheet (ED) Last Done: 01/21/24 15:09
[2024-01-21 09:57] LABS: MANUAL DIFF FLAG NO
[2024-01-21 10:05] LABS: Basophils Absolute Auto 0.1 X10*3/uL (0.0-0.2); Basophils Percent Auto 0.9 % (0-2); Eosinophils Absolute Auto 0.1 X10*3/uL (0.0-0.4); Eosinophils Percent Auto 1.4 % (0-4); Hematocrit 32.4 % (42.0-52.0); Hemoglobin 11.1 g/dl (14.0-18.0); Imm Gran Abs Auto 0.01 X10*3/uL (0.00-0.03); Imm Gran Pct Auto 0.1 % (0.0-0.4); Lymphocytes Absolute Auto 1.6 X10*3/uL (1.2-4.9); Lymphocytes Percent Auto 22.5 % (20-40); Mean Corpuscular HGB Conc 34.3 g/dl (31.0-36.0); Mean Corpuscular Hemoglobin 32.6 pg (27.0-33.0); Mean Platelet Volume 10.2 fL (9.4-12.4); Monocytes Absolute Auto 0.8 X10*3/uL (0.1-1.2); Monocytes Percent Auto 10.9 % (2-11); Neutrophils Absolute Auto 4.5 x10*3/uL (2.0-8.3); Neutrophils Percent Auto 64.2 % (45-73); Platelet Count 170 X10*3/uL (160-400); Red Blood Count 3.41 X10*6/uL (4.60-5.80); Red Cell Distribution Width 14.3 % (11.0-16.0)
[2024-01-21] MEDS: iohexoL 350 MG/ML 100 ML INFUS..BTL IV (10:07)
[2024-01-21 10:16] LABS: Alanine Aminotransferase 13 U/L (0-40); Albumin Level 3.7 g/dL (3.5-5.0); Alkaline Phosphatase 88 U/L (39-117); Anion Gap 13 (12-20); Aspartate Amino Transferase 22 U/L (5-37); Bilirubin Total 0.8 mg/dL (0.0-1.0); Blood Urea Nitrogen 12 mg/dL (9-16); Calcium 9.9 mg/dL (8.4-10.2); Carbon Dioxide 29 mmol/L (22-29); Chloride 96 mmol/L (96-108); Creatinine Clr Calc Pharmacy 96.3; Estimated Glomerular Filt Rate > 60; Glucose Random 192 mg/dL (60-115); Potassium 3.7 mmol/L (3.3-5.1); Sodium 134 mmol/L (135-145); Total Protein 7.9 g/dL (6.5-8.0)
[2024-01-21 10:23] LABS: Troponin-I High Sensitivity 16.4 ng/L (<3.5-35.0)
[2024-01-21 10:31] LABS: Appearance Urine Clear; Color Urine Yellow; Glucose Urine UA Negative (Negative); Leukocyte Esterase Urine Negative (Negative); Nitrite Urine Negative (Negative); PH 7.5 (5.0-9.0); Urine Blood Negative (Negative); Urine Ketones Negative (Negative); Urine Protein Negative (Neg-Trace)
[2024-01-21 10:33] LABS: Bacteria Urine None Seen (None Seen); Hyaline Casts Urine 0-2 /LPF (0-2); RBC Urine 0-2 /HPF (0-2); Squamous Epithelial Cell Urine 0-2 /HPF (0-2); WBC Urine 0-5 /HPF (0-5)
[2024-01-21 10:38] LABS: Erythrocyte Sedimentation Rate 57 MM/HR (0-15)
--- NOTE | 2024-01-21 10:59 | P.HPHOSP_ITS ---
History of Present Illness Date of Service: 01/21/24 Chief Complaint: Altered mental status 73 years old male brought in by the because slurred speech and confusion since 0330 in the morning. Patient has a history of laminectomy with posterior fusion hardware at L4-L5 and L5-S1. He had CT of the L-spine on 08/02/2023 that showed cortical disruption on L2, bone destruction secondary to diskitis/osteomyelitis was not excluded. At that time he was also found to have strep sanguinus bacteremia 07/2023 and completed course of 6 weeks of IV rocephin (completed 09/15/23). Had CT on 09/21/23 of L2-3 with findings consistent with discitis/osteomyelitis with significant erosive/destructive changes involving vertebral bodies and endplates and extruded bone fragments with retropulsion. He was then started on cefdinir 300 mg b.i.d. for approximately 10 days (end date 10/01/2023). The plan was to have a biopsy completed. it appears he also had cx that were negative. He presented back to [facility] 11/18/23 with back pain and confusion and was tx to [facility] for neurosurgical evaluation. He was admitted from 11/18/23-12/06/23 In the ED, pt was noted to have aphagia and only was able to tell his name and place. He was not noted to have any other neurological symptoms. He had no compliants of back pain. No fever, chills, leukocytosis, or other signs of infection. abs all within acceptable limits, elevated systolic blood pressure of 180. Head CT, chest x-ray both negative for any acute abnormalities. Plan is to place patient in observation for altered mental status. Review of Systems 2 Review of Systems: Denies any recent fever chills or decrease in appetite respiratory denies any shortness of breath or cough cardiovascular denied chest pain gastrointestinal denies any dysphagia abdominal pain nausea vomiting or diarrhea genitourinary denies any dysuria frequency or hematuria musculoskeletal denies any joint pain or swelling neuropsych denies any weakness or seizures all other systems reviewed are negative [facility] Medical History Chronic atrial fibrillation Thoracic aortic aneurysm HTN (hypertension) Cardiac pacemaker in situ Chronic atrial flutter Family History Father No problems noted. Mother Cancer Surgical History History of hammer toe correction Hx of cholecystectomy History of permanent cardiac pacemaker placement Social History Household Members: Spouse Housing: House Do you presently have visiting nurse or other home services: Yes Alcohol intake: former Patient Tobacco Use Status: Never used Tobacco service: No Meds Allergies Allergy/AdvReac Type Severity Reaction Status Date / Time bacitracin [Bacitracin] Allergy Mild ITCHING Verified 01/21/24 09:17 Sulfa (Sulfonamide Allergy Mild Itching Verified 01/21/24 09:17 Antibiotics) hydromorphone AdvReac Hallucinati Verified 01/21/24 09:17 ons Active Medications: Current Medications Acetaminophen (Acetaminophen 325 Mg Tablet) 650 mg PO Q6H PRN PRN Reason: Pain, Mild (Pain Scale 1-3), fever or headache Calcium Carbonate (Calcium Carbonate 750 Mg Tab.Chew) 750 mg PO Q4H PRN PRN Reason: Heartburn Magnesium Hydroxide (Milk Of Magnesia 30 Ml Oral.Susp) 30 ml PO DAILY PRN PRN Reason: Constipation Melatonin (Melatonin 3 Mg Tablet) 6 mg PO BEDTIME PRN PRN Reason: Insomnia Sodium Chloride (0.9 % Sodium Chloride Flush 3 Ml Syringe) [facility] Medications ?Medication ?Instructions ?Recorded ?Confirmed ?Last Taken ?Type prazosin 2 mg capsule 2 mg PO BEDTIME 11/30/20 01/21/24 01/21/24 History metoprolol succinate 100 mg 100 mg PO DAILY 12/06/21 01/21/24 01/21/24 History tablet,extended release 24 hr acetaminophen 325 mg tablet 650 mg PO Q6H PRN Pain 11/18/23 01/21/24 01/21/24 History (Tylenol) apixaban 5 mg tablet (Eliquis) 5 mg PO BID 01/21/24 01/21/24 01/21/24 History atorvastatin 20 mg tablet 20 mg PO BEDTIME 01/21/24 01/21/24 01/21/24 History cyanocobalamin (vitamin B-12) 1,000 mcg PO DAILY 01/21/24 01/21/2401/20/24 History 1,000 mcg tablet (Vitamin B-12) docusate sodium 100 mg capsule 100 mg PO BID Constipation 01/21/24 01/21/24 01/21/24 History duloxetine 30 mg capsule,delayed 30 mg PO DAILY 01/21/24 01/21/24 01/21/24 History release ferrous sulfate 324 mg (65 mg 324 mg PO MOWEFR 01/21/24 01/21/24 01/21/24 History iron) tablet,delayed release miconazole nitrate 2 % topical 1 appl topical DAILY PRN Rash 01/21/24 01/21/24 01/21/24 History powder oxycodone 5 mg tablet 5 mg PO Q6H PRN Pain 01/21/24 01/21/24 01/21/24 History quetiapine 25 mg tablet 25 mg PO BEDTIME 01/21/24 01/21/24 01/21/24 History vitamin D3 95 mcg (3,800 1 tab PO DAILY 01/21/24 01/21/24 01/21/24 History unit)-folic acid 1 mg tablet (Cholecal DF) Physical Exam 2 Vital Signs and Narrative: Vital Signs: Last Vital Signs Temp 97.7 F 01/21/24 10:21 Pulse 74 01/21/24 10:21 Resp 18 01/21/24 10:21 BP 188/92 H 01/21/24 10:21 Pulse Ox 100 01/21/24 10:21 O2 Del Method Room Air 01/21/24 10:21 BMI result Body Mass Index 24.3 Appearing in no acute distress head is normocephalic atraumatic eyes pupils are PERRLA sclera is anicteric mouth throat mucous membranes are intact and moist neck is supple no lymphadenopathy, no JVD noted lung sounds are clear to auscultation heart regular rate rhythm, clear S1, S2 positive bowel sounds, abdomen is soft, nontender neuro patient is alert x3, no focal deficits Results Labs 01/22/24 06:06 01/22/24 06:06 Labs: Laboratory Results - last 24 hr 01/21/24 01/21/24 09:50 10:19 MCV 95.0 MCH 32.6 MCHC 34.3 RDW 14.3 Plt Count 170 MPV 10.2 Immature Gran % (Auto) 0.1 Neut % (Auto) 64.2 Lymph % (Auto) 22.5 [place] % (Auto) 10.9 Eos % (Auto) 1.4 Baso % (Auto) 0.9 Lymph # (Auto) 1.6 [place] # (Auto) 0.8 Eos # (Auto) 0.1 Baso # (Auto) 0.1 Abs Immat Gran (auto) 0.01 Absolute Neuts (auto) 4.5 Absolute Nucleated RBC 0.000 Nucleated RBC % (auto) 0.0 ESR 57 H Anion Gap 13 Estim Creat Clear Calc 96.3 Estimated GFR > 60 Random Glucose 192 H Calcium 9.9 Total Bilirubin 0.8 AST 22 ALT 13 Alkaline Phosphatase 88 Troponin I High Sens 16.4 Total Protein 7.9 Albumin 3.7 Urine Color Yellow Urine Appearance Clear Urine pH 7.5 Ur Specific [place] 1.010 Urine Protein Negative Urine Glucose (UA) Negative Urine Ketones Negative Urine Blood Negative Urine Nitrite Negative Ur Leukocyte Esterase Negative Urine RBC 0-2 Urine WBC 0-5 Ur Squamous Epith Cells 0-2 Urine Bacteria None Seen Hyaline Casts 0-2 Imaging Radiologist's Impressions: Impressions Chest X-Ray 01/21/24 09:45 IMPRESSION: Chronic appearing and postoperative changes but no acute superimposed process. Head CT 01/21/24 09:56 IMPRESSION: Within the limitations of this study, -CT head demonstrates no acute intracranial hemorrhage or edematous infarct. -CTA head and neck demonstrates no large vessel occlusion or high-grade stenosis within the intracranial or cervical arterial vasculature. Head/Neck CTA 01/21/24 10:07 IMPRESSION: Within the limitations of this study, -CT head demonstrates no acute intracranial hemorrhage or edematous infarct. -CTA head and neck demonstrates no large vessel occlusion or high-grade stenosis within the intracranial or cervical arterial vasculature. Assessment and Plan (1) Altered mental status: Qualifiers: Altered mental status type: unspecified Qualified Code(s): R41.82 - Altered mental status, unspecified Status: Acute Plan 73 year old man placed on observation for altered mental status. Patient has a history of laminectomy with posterior fusion hardware at L4-L5 and L5-S1 on CT of the L-spine on 08/02/2023 that showed cortical disruption on L2, bone destruction secondary to diskitis/osteomyelitis was not excluded. At that time he was also found to have strep sanguinus bacteremia 07/2023 and completed course of 6 weeks of IV rocephin (completed 09/15/23). Had CT on 09/21/23 of L2-3 with findings consistent with discitis/osteomyelitis with significant erosive/destructive changes involving vertebral bodies and endplates and extruded bone fragments with retropulsion. He was then started in cefdinir 300 mg b.i.d. for approximately 10 days (end date 10/01/2023). The plan was to have a biopsy completed. it appears he also had cx that were negative. He presented back to [facility] 11/18/23 with back pain and confusion and was tx to [facility] for neurosurgical evaluation. He was admitted from 11/18/23-12/06/23 Acute Encephalopathy, unspecified noted aphagia Head CT and head CTA both negative for acute abnormality ? TIA vs medication related, on oxycodone, recent antibiotic use Neg CXR and ua, no fever or leukocytosis, no back pain RPP pending blood cx pending Neurology consultation pending Paroxysmal atrial fibrillation Continue beta-lisy and Eliquis Hypertension stable BP Mental health hold psychiatric medications in light of encephaloapthy DVT prophylaxis with Eliquis Full code Placed on observation Quality Stroke Does the patient have a stroke diagnosis?: No VTE Prior VTE?: No VTE Risk Level:: Medical - moderate - high VTE Device Contraindication: Treatment Not Indicated VTE Drug Contraindication: N/A - Med Ordered
--- NOTE | 2024-01-21 12:32 | PHA.MEDREC ---
Addendum entered by Zahra Rose [facility] 01/21/24 12:41: Lyrica was directed as 75mg before bedtime, not BID. Patient's also noted that baby aspirin was discontinued while he was at . was nervous about Lyrica because of it's relation to the gabapentin which they feel may be a source for some of his health issues. Original Note: Pharmacy Consult ? Medication Reconciliation Pharmacy has completed the medication reconciliation. Spoke to pt and at bedside. had a medication list on her phone and confirmed what medications the patient takes at home. Notably patient is no longer taking amlodipine, gabapentin, metformin, and warfarin. Added Miconazole 2% powder to this list which she states he uses as needed for a groin rash. The patient was supposed to start Lyrica 75mg BID, but this has not been filled or started yet.
--- NOTE | 2024-01-21 12:48 | P.CNNE_ITS ---
History of Present Illness Data of Consult Service Date: 01/21/24 Primary Care Provider: Velvet Pittman MD [facility] Reason for consult: Difficulty speaking 73 years old man with underlying history of atrial fibrillation on Eliquis recent cardiac pacemaker placement came to hospital after an episode of difficulty speaking. His stated that this type of episode has also happened while he was in [place] and nose reason for that was found. Apparently he woke up in the middle of night and his noted that he was not making sense. She tried to talk to him that maybe should go to hospital but he when back to sleep. An hour later he woke up and he was still in somewhat similar situation. She tried to tell him that he should go to hospital but he resisted in got agitated and ultimately was brought here. He said that he did not have full recollection of what had happened. He was repeating what his has told him. There was no obvious focal arm or leg weakness. He denied any headache or any other symptoms. Review of Systems 2 Review of Systems: No recent cold or flu-like illness PMFSH Past Medical History Medical History Chronic atrial fibrillation Thoracic aortic aneurysm HTN (hypertension) Cardiac pacemaker in situ Chronic atrial flutter Family History Family History Father No problems noted. Mother Cancer Surgical History Surgical History History of hammer toe correction Hx of cholecystectomy History of permanent cardiac pacemaker placement Social History Social History Alcohol intake: former Patient Tobacco Use Status: Never used Tobacco Smoked in Last 30 Days: No Advance Directives: No Advance Directives Information Provided: No Do you have a plan to hurt others: No Plan Meds Allergies Allergy/AdvReac Type Severity Reaction Status Date / Time bacitracin [Bacitracin] Allergy Mild ITCHING Verified 01/21/24 09:17 Sulfa (Sulfonamide Allergy Mild Itching Verified 01/21/24 09:17 Antibiotics) hydromorphone AdvReac Hallucinati Verified 01/21/24 09:17 ons Active Medications: Current Medications Acetaminophen (Acetaminophen 325 Mg Tablet) 650 mg PO Q6H PRN PRN Reason: Pain, Mild (Pain Scale 1-3), fever or headache Calcium Carbonate (Calcium Carbonate 750 Mg Tab.Chew) 750 mg PO Q4H PRN PRN Reason: Heartburn Magnesium Hydroxide (Milk Of Magnesia 30 Ml Oral.Susp) 30 ml PO DAILY PRN PRN Reason: Constipation Melatonin (Melatonin 3 Mg Tablet) 6 mg PO BEDTIME PRN PRN Reason: Insomnia Sodium Chloride (0.9 % Sodium Chloride Flush 3 Ml Syringe) 3 ml IVFLUSH [facility] Medications ?Medication ?Instructions ?Recorded ?Confirmed ?Last Taken ?Type prazosin 2 mg capsule 2 mg PO BEDTIME 11/30/20 01/21/24 01/21/24 History metoprolol succinate 100 mg 100 mg PO DAILY 12/06/21 01/21/24 01/21/24 History tablet,extended release 24 hr acetaminophen 325 mg tablet 650 mg PO Q6H PRN Pain 11/18/23 01/21/24 01/21/24 History (Tylenol) apixaban 5 mg tablet (Eliquis) 5 mg PO BID 01/21/24 01/21/24 01/21/24 History atorvastatin 20 mg tablet 20 mg PO BEDTIME 01/21/24 01/21/24 01/21/24 History cyanocobalamin (vitamin B-12) 1,000 mcg PO DAILY 01/21/24 01/21/24 01/21/24 History 1,000 mcg tablet (Vitamin B-12) docusate sodium 100 mg capsule 100 mg PO BID Constipation 01/21/24 01/21/24 01/21/24 History duloxetine 30 mg capsule,delayed 30 mg PO DAILY 01/21/24 01/21/24 01/21/24 History release ferrous sulfate 324 mg (65 mg 324 mg PO MOWEFR 01/21/24 01/21/24 01/21/24 History iron) tablet,delayed release hydrochlorothiazide 12.5 mg capsule 12.5 mg PO DAILY 01/21/24 01/21/24 01/21/24 History miconazole nitrate 2 % topical 1 appl topical DAILY PRN Rash 01/21/24 01/21/24 01/21/24 History powder oxycodone 5 mg tablet 5 mg PO Q6H PRN Pain 01/21/24 01/21/24 01/21/24 History quetiapine 25 mg tablet 25 mg PO BEDTIME 01/21/24 01/21/24 01/21/24 History vitamin D3 95 mcg (3,800 1 tab PO DAILY 01/21/24 01/21/24 01/21/24 History unit)-folic acid 1 mg tablet (Cholecal DF) Physical Exam 2 Vital Signs: Vital Signs: Last Vital Signs Temp 97.7 F 01/21/24 10:21 Pulse 74 01/21/24 10:21 Resp 18 01/21/24 10:21 BP 188/92 H 01/21/24 10:21 Pulse Ox 100 01/21/24 10:21 O2 Del Method Room Air 01/21/24 10:21 BMI result Body Mass Index 24.3 Neuro: Other: He is alert and awake with normal spontaneity and fluency of speech. He was making some paraphasic errors. He was able to repeat but had difficulty naming. Face was symmetrical. Visual soto are full. Extraocular muscles were intact. There was no focal arm or leg weakness. Plantars were flexors. Deep tendon reflexes were absent. Speech was normal. Results Labs 01/21/24 09:50 01/21/24 09:50 Labs: Short CBC 01/21/24 Range/Units 09:50 WBC 7.0 (4.8-10.8) X10*3/uL Hgb 11.1 L (14.0-18.0) g/dl Hct 32.4 L (42.0-52.0) % Plt Count 170 (160-400) X10*3/uL BMP 01/21/24 09:50 Sodium 134 L Potassium 3.7 Chloride 96 Carbon Dioxide 29 BUN 12 Creatinine 0.76 Calcium 9.9 Liver Function 01/21/24 Range/Units 09:50 Total Bilirubin 0.8 (0.0-1.0) mg/dL AST 22 (5-37) U/L ALT 13 (0-40) U/L Alkaline Phosphatase 88 (39-117) U/L Albumin 3.7 (3.5-5.0) g/dL Urine 01/21/24 Range/Units 10:19 Urine Color Yellow Urine Appearance Clear Urine pH 7.5 (5.0-9.0) Ur Specific [place] 1.010 (1.005-1.025) Urine Protein Negative (Neg-Trace) mg/dL Urine Glucose (UA) Negative (Negative) mg/dL Head CT and CTA were done. His imaging revealed moderately severe cerebral atrophy and [id number] chronic microvascular ischemic changes. Assessment and Plan (1) Difficulty speaking: Status: Acute 73 years old man with mild motor aphasia type of features with confusion or amnesia. This set of symptoms are suggestive more of an epileptic etiology or dementia. Vascular disease or stroke is a possibility too. I am not sure if we could get an MRI of brain that could put some light into it. Otherwise my recommendation is to obtain an EEG to rule out any underlying tendency for epilepsy. Procedures Date of Service Date of Service: 01/21/24
[2024-01-21 16:28] LABS: Amphetamine Screen Urine Not Detected (Not Detect); Barbiturates, Urine Not Detected (Not Detect); Benzodiazepines Screen Urine Not Detected (Not Detect); Buprenorphine Scr Not Detected (Not Detect); Cannabinoid Screen Urine Not Detected (Not Detect); Cocaine Screen Urine Not Detected (Not Detect); Fentanyl, urine Not Detected (Not Detect); Methadone Screen, Urine Not Detected (Not Detect); Opiate Screen Urine Not Detected (Not Detect); Oxycodone Screen Urine Positive (Not Detect); Phencyclidine Screen Urine Not Detected (Not Detect)
[2024-01-21] MEDS: Acetaminophen 325 MG TABLET 650 MG PO (18:02)
[2024-01-21] MEDS: Prazosin HCL 1 MG CAPSULE 2 MG PO (22:45)
[2024-01-21] MEDS: Docusate Sodium 100 MG CAPSULE PO (22:45)
[2024-01-21] MEDS: 0.9 % Sodium Chloride Flush 3 ML SYRINGE IVFLUSH (22:49)
[2024-01-21] MEDS: QUEtiapine Fumarate 25 MG TABLET PO (22:49)
[2024-01-21] MEDS: Apixaban 5 MG TABLET PO (22:49)
[2024-01-21] MEDS: Atorvastatin Calcium 20 MG TABLET PO (22:49)
[2024-01-21] MEDS: oxyCODONE HCl Immed Release 5 MG TABLET PO (23:58)
[2024-01-22] VITALS: BP 138/62; PULSE 64; RESP 16; TEMP 36.4; O2SAT 94
[2024-01-22 00:58] VITALS: RESP 18
[2024-01-22 04:00] VITALS: BP 142/64; PULSE 64; RESP 18; TEMP 36.3
[2024-01-22 06:19] LABS: Hematocrit 31.4 % (42.0-52.0); Hemoglobin 10.7 g/dl (14.0-18.0); Mean Corpuscular HGB Conc 34.1 g/dl (31.0-36.0); Mean Corpuscular Hemoglobin 32.3 pg (27.0-33.0); Mean Corpuscular Volume 94.9 fL (80.0-98.0); Mean Platelet Volume 9.3 fL (9.4-12.4); Platelet Count 127 X10*3/uL (160-400); Red Blood Count 3.31 X10*6/uL (4.60-5.80); Red Cell Distribution Width 14.3 % (11.0-16.0)
[2024-01-22 06:40] LABS: Alanine Aminotransferase 12 U/L (0-40); Albumin Level 3.3 g/dL (3.5-5.0); Alkaline Phosphatase 76 U/L (39-117); Anion Gap 10 (12-20); Aspartate Amino Transferase 21 U/L (5-37); Bilirubin Total 1.1 mg/dL (0.0-1.0); Blood Urea Nitrogen 8 mg/dL (9-16); Calcium 9.7 mg/dL (8.4-10.2); Carbon Dioxide 32 mmol/L (22-29); Chloride 101 mmol/L (96-108); Creatinine Clr Calc Pharmacy 107.7; Estimated Glomerular Filt Rate > 60; Glucose Random 107 mg/dL (60-115); Magnesium 1.7 mg/dL (1.6-2.6); Potassium 3.8 mmol/L (3.3-5.1); Sodium 139 mmol/L (135-145); Total Protein 7.1 g/dL (6.5-8.0)
[2024-01-22 08:00] VITALS: BP 138/62; PULSE 63; RESP 16; TEMP 36.3; O2SAT 96
[2024-01-22] MEDS: Folic Acid 1 MG TABLET PO (08:37)
[2024-01-22] MEDS: Docusate Sodium 100 MG CAPSULE PO (08:37)
[2024-01-22] MEDS: DULoxetine HCl 30 MG CAPSULE.DR PO (08:37)
[2024-01-22] MEDS: Cholecalciferol (Vitamin D3) 25 MCG TABLET 100 MCG PO (08:37)
[2024-01-22] MEDS: Metoprolol Succinate ER 100 MG TAB.ER.24H PO (08:37)
[2024-01-22] MEDS: Apixaban 5 MG TABLET PO (08:37)
[2024-01-22] MEDS: Ferrous Sulfate 324 MG TABLET.DR PO (08:37)
[2024-01-22] MEDS: Cyanocobalamin (Vitamin B-12) 1,000 MCG TABLET 1000 MCG PO (08:37)
[2024-01-22] MEDS: hydroCHLOROthiazide 12.5 MG TABLET PO ×2 (08:37→12:50)
[2024-01-22] MEDS: 0.9 % Sodium Chloride Flush 3 ML SYRINGE IVFLUSH (08:38)
[2024-01-22 09:21] LABS: Adenovirus PCR Not Detected (Not Detect.); Bordetella parapertussis PCR Not Detected (Not Detect.); Bordetella pertussis PCR Not Detected (Not Detect.); Chlamydia pneumoniae PCR Not Detected (Not Detect.); Coronavirus 229E PCR Not Detected (Not Detect.); Coronavirus HKU1 PCR Not Detected (Not Detect.); Coronavirus NL63 PCR Not Detected (Not Detect.); Coronavirus OC43 PCR Not Detected (Not Detect.); Human metapneumovirus PCR Not Detected (Not Detect.); Influenza A PCR Not Detected (Not Detect.); Influenza B PCR Not Detected (Not Detect.); Mycoplasma pneumoniae PCR Not Detected (Not Detect.); Parainfluenza 1 PCR Not Detected (Not Detect.); Parainfluenza 2 PCR Not Detected (Not Detect.); Parainfluenza 3 PCR Not Detected (Not Detect.); Parainfluenza 4 PCR Not Detected (Not Detect.); RSV PCR Not Detected (Not Detect.); Rhino/Enterovirus PCR Not Detected (Not Detect.)
--- NOTE | 2024-01-22 09:39 | PC.NURSE ---
01/21/24-01/22/24 Telemetry rhythm note. Throughout the night patient in AFib with occasional VPaced beats when patient HR dips down into 40-50s. Pt having intermittent PVC's asymptomatic. Dr. Rogers notified and Magnesium level added on for am labs.
[2024-01-22 10:11] LABS: SARS-CoV-2 PCR Not Detected (Not Detect.)
[2024-01-22 11:22] VITALS: BP 160/68; PULSE 58; RESP 20; TEMP 36.7; O2SAT 96
[2024-01-22 12:50] VITALS: BP 144/63
--- NOTE | 2024-01-22 12:52 | MHC.CM.PN ---
Patient is here with AMS and difficulty speaking; CM spoke with /HCP/Liliana @ [phone] and addressed VALDES with her (a copy will be mailed to Liliana and the original has been placed on the chart). Patient's HCP may be in their [place] home, but Liliana will look for it and provide CM with a copy. Patient lives in a house with his , he is active with [facility] and he uses a walker to assist with mobility. Home/resume said services is the goal and CM has initiated and will follow for dc planning. PCP is Dr. Velvet Pittman.
--- NOTE | 2024-01-22 12:55 | P.DS_ITS ---
DS: Providers Provider Date of Service: 01/22/24 Date of admission: 01/21/24 10:54 Primary care physician: Velvet Pittman MD Consults: 01/21/24 11:06 Consult to Neurology Routine Consulting Provider: [facility] Reason for consultation: ? TIA 01/21/24 17:55 Consult to Wound Care Routine Reason for consultation: skin tears to bilat shins DS: Diagnosis Discharge Diagnosis (1) Difficulty speaking: Status: Acute DS: Summary Hospital Course Hospital Course: 73 years old male brought in by the because slurred speech and confusion since 0330 in the morning. Patient has a history of laminectomy with posterior fusion hardware at L4-L5 and L5-S1. He had CT of the L-spine on 08/02/2023 that showed cortical disruption on L2, bone destruction secondary to diskitis/osteomyelitis was not excluded. At that time he was also found to have strep sanguinus bacteremia 07/2023 and completed course of 6 weeks of IV rocephin (completed 09/15/23). Had CT on 09/21/23 of L2-3 with findings consistent with discitis/osteomyelitis with significant erosive/destructive changes involving vertebral bodies and endplates and extruded bone fragments with retropulsion. He was then started on cefdinir 300 mg b.i.d. for approximately 10 days (end date 10/01/2023). The plan was to have a biopsy completed. it appears he also had cx that were negative. He presented back to [facility] [place] 11/18/23 with back p ain and confusion and was tx to [facility] for neurosurgical evaluation. He was admitted from 11/18/23-12/06/23. In the ED, pt was noted to have aphagia and only was able to tell his name and place. He was not noted to have any other neurological symptoms. He had no compliants of back pain. No fever, chills, leukocytosis, or other signs of infection. abs all within acceptable limits, elevated systolic blood pressure of 180. Head CT, chest x-ray both negative for any acute abnormalities. Plan is to place patient in observation for altered mental status. 73-year-old man treated for acute encephalopathy possibly related to hypertension. Systolic blood pressures as high as 190. Head CT and head CT both negative for acute abnormality. There was initially a question of TIA but patient has had symptoms like this before recently admitted. Patient had no signs of infectious abnormality therefore symptoms likely not related to infection. He had no complaints of back pain. He was seen evaluated by Neurology who thought could also possibly related to a seizure. Plan is for patient to have an outpatient EEG. EEG company will go to patient's home to set up. At this time patient is completely alert and oriented without aphasia like he had initially. Plan is to discharge patient home. He is in agreement. Hypertension. Blood pressure has improved. Hydrochlorothiazide increased to 25 mg daily Mental health. Continue psychiatric medications Time Attestation Discharge Coordination Time (in mins): 36 Quality: Safe Use of Opioids Does Pt have an Active Cancer Diagnosis on the Problem List?: No Quality: Stroke Does the patient have a stroke diagnosis?: No Physical Exam Vital Signs: Vital Signs: Last Vital Signs Temp 98.0 F 01/22/24 11:22 Pulse 58 01/22/24 11:22 Resp 20 01/22/24 11:22 BP 144/63 H 01/22/24 12:50 Pulse Ox 96 01/22/24 11:22 O2 Del Method Room Air 01/22/24 11:22 BMI result Body Mass Index 23.8 Appearing in no acute distress head is normocephalic atraumatic eyes pupils are PERRLA sclera is anicteric mouth throat mucous membranes are intact and moist neck is supple no lymphadenopathy, no JVD noted lung sounds are clear to auscultation heart regular rate rhythm, clear S1, S2 positive bowel sounds, abdomen is soft, nontender neuro patient is alert x3, no focal deficits DS: Data Data Completed and Pending Labs on day of discharge: Laboratory Results - last 24 hr 01/21/24 01/22/24 16:11 06:06 WBC 6.0 RBC 3.31 L Hgb 10.7 L Hct 31.4 L MCV 94.9 MCH 32.3 MCHC 34.1 RDW 14.3 Plt Count 127 L D MPV 9.3 L Absolute Nucleated RBC 0.000 Nucleated RBC % (auto) 0.0 Sodium 139 Potassium 3.8 Chloride 101 Carbon Dioxide 32 H Anion Gap 10 L BUN 8 L Creatinine 0.68 Estim Creat Clear Calc 107.7 Estimated GFR > 60 Random Glucose 107 Calcium 9.7 Magnesium 1.7 Total Bilirubin 1.1 H AST 21 ALT 12 Alkaline Phosphatase 76 Total Protein 7.1 Albumin 3.3 L Urine Opiates Screen Not Detected Ur Buprenorphine Scrn Not Detected Ur Oxycodone Screen Positive H Urine Methadone Screen Not Detected Urine Fentanyl Screen Not Detected Ur Barbiturates Screen Not Detected Ur Phencyclidine Scrn Not Detected Ur Amphetamines Screen Not Detected U Benzodiazepines Scrn Not Detected Urine Cocaine Screen Not Detected U Marijuana (THC) Screen Not Detected Respiratory Panel Pitts See Note Adenovirus (Rapid PCR) Not Detected B.pert (TEM-PCR) Not Detected B.parapertussis DNA PCR Not Detected C. pneumoniae DNA (PCR) Not Detected Coronavirus OC43 (PCR) Not Detected Coronavirus HKU1 (PCR) Not Detected Coronavirus 229E (PCR) Not Detected Coronavirus NL63 (PCR) Not Detected Human Metapneumovir PCR Not Detected Influenza A (RT-PCR) Not Detected Influenza B (RT-PCR) Not Detected M. pneumoniae (PCR) Not Detected Parainfluenza 1 (PCR) Not Detected Parainfluenza 2 (PCR) Not Detected Parainfluenza 3 (PCR) Not Detected Parainfluenza 4 (PCR) Not Detected RSV (PCR) Not Detected Entero/Rhino (PCR) Not Detected SARS-CoV-2 RNA (RT-PCR) Not Detected Preliminary micro results at discharge 01/21/24 09:49 Blood Culture - Preliminary Blood - Venous No growth after 24 hours. 01/21/24 09:49 Blood Culture - Preliminary Blood - Venous No growth after 24 hours. Discharge Plan Discharge Anticipated Discharge Date/Time: 01/22/24 12:33 Patient Disposition: Home, Self-Care Discharge Diagnosis: Hypertensive encephalopathy, symptoms possibly related to elevated blood pressure Referrals: Velvet Pittman MD [Primary Care Provider] - 1 Week Discharge Medications: Continued quetiapine 25 mg tablet 25 mg PO BEDTIME atorvastatin 20 mg tablet 20 mg PO BEDTIME docusate sodium 100 mg capsule 100 mg PO BID duloxetine 30 mg capsule,delayed release(DR/EC) 30 mg PO DAILY Eliquis 5 mg tablet 5 mg PO BID oxycodone 5 mg tablet 5 mg PO Q6H PRN (Reason: Pain) miconazole nitrate 2 % Powder 1 appl TOPICAL DAILY PRN (Reason: Rash) Rx Instructions: Groin cyanocobalamin (vitamin B-12) [Vitamin B-12] 1,000 mcg Tablet 1,000 mcg PO DAILY ferrous sulfate 324 mg (65 mg iron) Tablet,Delayed Release (Dr/Ec) 324 mg PO MOWE Rx Instructions: Monday, Monday, Monday Cholecal DF 95 mcg (3,800 unit)-1 mg Tablet 1 tab PO DAILY acetaminophen [Tylenol] 325 mg Tablet 650 mg PO Q6H PRN (Reason: Pain) prazosin 2 mg capsule 2 mg PO BEDTIME metoprolol succinate 100 mg tablet extended release 24 hr 100 mg PO DAILY Changed hydrochlorothiazide 12.5 mg capsule 25 mg PO DAILY Qty: 60 0RF Discharge Orders: Discharge Order (Routine); Ordered 01/22/24 Ordered By: Iqra Marc Diet: Advance to usual diet Activity on Discharge: As tolerated Stand Alone Forms: Patient Portal Discharge page Print Language: Montenegrin Care Plan Goals: Will need outpatient EEG for workup of possible seizure disorder. The company will contact patient schedule in-house set up Health Concerns: Hypertensive encephalopathy, symptoms possibly related to elevated blood pressure Plan of Treatment: Follow-up with primary care provider as needed Take all medications as prescribed Assessment: See discharge summary
== END 2024-01-22 13:33 | disposition home or self-care (01) ==
LOC: HO.ED 11:01 → HO.EDOVER 11:14 → HO.IMC 14:29
PROVIDERS: Admitting Provider Nurse Practitioner Acute Care; Emergency Provider Emergency Medicine; PCP Internal Medicine; Visit Provider Nurse Practitioner Acute Care
DX: I67.4 Hypertensive encephalopathy (principal); R47.01 Aphasia; R47.81 Slurred speech; R53.1 Weakness; I10 Essential (primary) hypertension; I48.20 Chronic atrial fibrillation, unspecified; I48.92 Unspecified atrial flutter; I48.0 Paroxysmal atrial fibrillation; Z79.01 Long term (current) use of anticoagulants; Z95.0 Presence of cardiac pacemaker; Z79.899 Other long term (current) drug therapy
CPT/HCPCS: 36415; 70450; 70496; 70498; 71045; 80053; 80307; 81001; 83735; 84484; 85025; 85027; 85652; 87040; 87633; 93005; 95816; 99222; 99285; Q9967

== ENCOUNTER → 2024-01-21 09:15 | Outpatient (BNV) | payer MEDICARE, SELFPAY | PROVIDERS: Admitting Provider Nurse Practitioner Acute Care; Emergency Provider Emergency Medicine; PCP Internal Medicine; Visit Provider Internal Medicine Cardiovascular Disease | DX: I49.1 Atrial premature depolarization (principal); R53.1 Weakness; R94.31 Abnormal electrocardiogram [ECG] [EKG] | CPT/HCPCS: 93010 ==

== ENCOUNTER → 2024-01-21 10:54 | Outpatient (BNV) | payer MEDICARE, SELFPAY | PROVIDERS: Admitting Provider Nurse Practitioner Acute Care; Emergency Provider Emergency Medicine; PCP Internal Medicine; Visit Provider Nurse Practitioner Acute Care | DX: R41.82 Altered mental status, unspecified (principal); R47.9 Unspecified speech disturbances | CPT/HCPCS: 99222; 99239 ==

== ENCOUNTER → 2024-01-21 10:54 | Outpatient (BNV) | payer MEDICARE, SELFPAY | PROVIDERS: Admitting Provider Nurse Practitioner Acute Care; Emergency Provider Emergency Medicine; PCP Internal Medicine; Visit Provider Psychiatry & Neurology Neurology | DX: R47.9 Unspecified speech disturbances (principal) | CPT/HCPCS: 99222 ==

== ENCOUNTER → 2024-02-11 23:59 | Outpatient (BNV) | payer MEDICARE, SELFPAY ==
--- NOTE | 2024-02-19 16:58 | A.OFFVIS_ITS ---
Intake Visit Reasons: Remote Device check- [facility] Allergies bacitracin [Bacitracin] Allergy (Mild, Verified 01/21/24 09:17) ITCHING Sulfa (Sulfonamide Antibiotics) Allergy (Mild, Verified 01/21/24 09:17) Itching hydromorphone Adverse Reaction (Verified 01/21/24 09:17) Hallucinations [facility] Medical History Chronic atrial fibrillation Thoracic aortic aneurysm HTN (hypertension) Cardiac pacemaker in situ Chronic atrial flutter Surgical History History of hammer toe correction Hx of cholecystectomy History of permanent cardiac pacemaker placement Family History Father No problems noted. Mother Cancer Social History Household Members: Spouse Housing: House Do you presently have visiting nurse or other home services: Yes Alcohol intake: former Patient Tobacco Use Status: Never used Tobacco service: No Office Procedures Cardiac Device Check Cardiac Device Check Details: Remote pacemaker report generated 02/12/2024. Pacemaker function is adequate [id number] Cardiac Device Interrogation, pacemaker Procedure code (CPT) selection complete Assessment & Plan Assessment & Plan (1) Cardiac pacemaker in situ: Code(s): Z95.0 - Presence of cardiac pacemaker Category: Medical Plan: See above Coding Level of Care Code Procedure Only Diagnoses Cardiac pacemaker in situ Z95.0 CPT Codes Cardiac Device Check - Cardiac Device 12: [id number] Cardiac Device Interrogation, pacemaker ([id number])
== END ==
PROVIDERS: PCP Registered Nurse; Visit Provider Internal Medicine Cardiovascular Disease
DX: Z45.018 Encounter for adjustment and management of other part of cardiac pacemaker (principal)
CPT/HCPCS: 93294

== ENCOUNTER 2024-02-13 08:16 | Outpatient (AMB) | payer MEDICARE, SELFPAY ==
[2024-02-13 08:19] VITALS: BP 128/80; PULSE 62; BMI 26.2
--- NOTE | 2024-02-13 08:19 | A.OFFVIS_ITS ---
Vital Signs 02/13/24 08:19 Height 6 ft 1 in Weight 198 lb 6.656 oz BMI 26.2 BP 128/80 Blood Pressure Location Lt brachial Position Sitting Pulse 62 Intake Visit Reasons: 6 month follow up w/ device Intake Note: 6 month follow-up with [facility] check feeling better had a blood infection for the last year finally feeling better Chemistry Technician Required: No Allergies bacitracin [Bacitracin] Allergy (Mild, Verified 01/21/24 09:17) ITCHING Sulfa (Sulfonamide Antibiotics) Allergy (Mild, Verified 01/21/24 09:17) Itching hydromorphone Adverse Reaction (Verified 01/21/24 09:17) Hallucinations Medication List - Last Reconciled 02/13/24 by Trever Hathaway MD acetaminophen (Tylenol) 650 mg PO Q6H PRN apixaban (Eliquis) 5 mg PO BID atorvastatin 20 mg PO BEDTIME cyanocobalamin (vitamin B-12) (Vitamin B-12) 1,000 mcg PO DAILY docusate sodium 100 mg PO BID duloxetine 30 mg PO DAILY ferrous sulfate 324 mg PO MOWEFR hydrochlorothiazide 25 mg (2 x 12.5 mg) PO DAILY metoprolol succinate ER 100 mg PO DAILY miconazole nitrate 2% 1 appl topical DAILY PRN oxycodone 5 mg PO Q6H PRN prazosin 2 mg PO BEDTIME quetiapine 25 mg PO BEDTIME vitamin D3-folic acid 95 mcg (3,800 unit)-1 mg (Cholecal DF) 1 tab PO DAILY HPI Comments Details: Catarino comes for follow-up. Since I last saw him he has had a lot of hospitalization initially in [place] and subsequently here in [place]. 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 Subsequently had a major spine surgery at [facility] and now is currently doing extremely well and recuperating. He has had gradual improvement in his physical strength as well as mental confusion. He has not had any overt neurologic deficits. Walking with help of a walker and says he is getting better and wants to get rid of his walker. He denies any cardiac symptoms. Comes for his pacemaker check. Currently taking oral Eliquis for his anticoagulation tolerating well. Blood pressure is stable now. Denies any lightheadedness, syncope. Denies any heart failure symptoms. Patient did undergo NHUNG at [facility] without any evidence of pacer infection. [facility] Medical History Chronic atrial fibrillation Thoracic aortic aneurysm HTN (hypertension) Cardiac pacemaker in situ Chronic atrial flutter Surgical History History of hammer toe correction Hx of cholecystectomy History of permanent cardiac pacemaker placement Family History Father No problems noted. Mother Cancer Social History Household Members: Spouse Housing: House Do you presently have visiting nurse or other home services: Yes Alcohol intake: former Patient Tobacco Use Status: Never used Tobacco service: No Review of Systems Const Denies chills, Denies fatigue, Denies fever(s), Denies frequent falls, Denies weakness, Denies weight gain and Denies weight loss ENT Denies dizziness Card Denies chest pain, Denies leg edema, Denies lightheadedness, Denies palpitations, Denies dyspnea, Denies dyspnea on exertion, Denies orthopnea and Denies other (loss of consciousness) Resp Denies cough, Denies dyspnea and Denies dyspnea on exertion GI Denies hematochezia and Denies change in stool character Musc Denies abnormal gait, Denies muscle weakness, Denies numbness, Denies radiating pain into limb and Denies tingling Neuro Denies abnormal gait, Denies dizziness, Denies frequent falls, Denies numbness, Denies tingling and Denies weakness Endo Denies fatigue and Denies palpitations Physical Exam Vital Signs: Last Vital Signs Pulse 62 02/13/24 08:19 BP 128/80 02/13/24 08:19 BMI result Body Mass Index 26.2 Const General: cooperative, comfortable, no acute distress, alert, awake and Physically active Nutritional Appearance: other (Frail) Orientation/consciousness: patient oriented x3 Limitations: ambulation with walker Neck Neck: Yes trachea midline, Yes supple and Yes no JVD Resp Effort & Inspection: normal respiratory effort Auscultation: clear to auscultation bilaterally Cardio Jugular venous distension: no JVD Palpation: normal PMI Rhythm: abnormal rhythm irregularly irregular Heart sounds: S1 normal heart sound present and S2 normal heart sound present GI Auscultation: normal bowel sounds Skin General skin exam: no rashes or lesions noted and dry skin Neuro General: patient oriented x3 and no focal motor deficits Extrem General: Yes no clubbing, cyanosis or edema Psych Appearance: grossly normal Office Procedures Cardiac Device Check Cardiac Device Check Details: Single-chamber [facility] pacemaker in place. Programmed in VVI at 50 beats per minute. Ventricular pacing 2.4% of time. Ventricular capture thresholds are slightly elevated and reprogrammed to enhance safety. Ventricular sensing is adequate. Pacing lead impedance is stable. Battery life is at about 7 years [id number] Cardiac Device Check, leadless/single lead pacemaker Procedure code (CPT) selection complete Assessment & Plan Assessment & Plan (1) Chronic atrial fibrillation: Code(s): I48.20 - Chronic atrial fibrillation, unspecified Category: Medical Plan: Chronic rate control atrial fibrillation metoprolol therapy. Continue rate control. Has failed rhythm control in the past. Given longstanding atrial fibrillation unlikely to pursue rhythm control. Continue full oral anticoagulation, currently on Eliquis 5 mg b.i.d.. Quarterly renal function test should be pursued. (2) Cardiac pacemaker in situ: Code(s): Z95.0 - Presence of cardiac pacemaker Category: Medical Plan: Cardiac pacemaker in-situ, working well. Reprogrammed for adequate function. Will follow remotely and follow up in the clinic in 6 months time. (3) Thoracic aortic aneurysm: Comment: 4.2 cm by echocardiogram December 2019 Code(s): I71.2 - Thoracic aortic aneurysm, without rupture Category: Medical Plan: Thoracic aortic aneurysm which is [id number] 4.4 cm by last echocardiogram. Continue aggressive blood pressure control which is currently well optimized importance of regular blood pressure checks at home was disc ussed. Avoid sudden strenuous isometric exercise. Follow-up echocardiogram yearly. Will follow up in the clinic in 6 months time, sooner p.r.n.. Thank you for allowing me to partake in his care Coding Level of Care Code Est Pt Level 4 (64443) Diagnoses Chronic atrial fibrillation I48.20 Cardiac pacemaker in situ Z95.0 Thoracic aortic aneurysm I71.2 CPT Codes Cardiac Device Check - Cardiac Device 1: [id number] Cardiac Device Check, leadless/single lead pacemaker ([id number])
== END 2024-02-13 09:07 | disposition home or self-care (01) ==
PROVIDERS: PCP Registered Nurse; Visit Provider Internal Medicine Cardiovascular Disease
DX: I71.20 Thoracic aortic aneurysm, without rupture, unspecified (principal); I48.20 Chronic atrial fibrillation, unspecified; Z95.0 Presence of cardiac pacemaker
CPT/HCPCS: 93279; 99214

== ENCOUNTER → 2024-02-13 08:16 | Outpatient (BNVA) | payer MEDICARE, SELFPAY | PROVIDERS: PCP Registered Nurse; Visit Provider Internal Medicine Cardiovascular Disease | DX: I48.20 Chronic atrial fibrillation, unspecified (principal); I71.20 Thoracic aortic aneurysm, without rupture, unspecified; I10 Essential (primary) hypertension; Z45.010 Encounter for checking and testing of cardiac pacemaker pulse generator [battery] | CPT/HCPCS: 99212 ==

== ENCOUNTER 2024-04-12 09:00 | Outpatient (RCR) | payer MEDICARE, SELFPAY | END 2024-04-25 13:42 | disposition home or self-care (01) | LOC: HO.PTCHIC 09:00 | PROVIDERS: PCP Internal Medicine; Visit Provider Nurse Practitioner Adult Health | DX: G45.9 Transient cerebral ischemic attack, unspecified (principal); M43.26 Fusion of spine, lumbar region; M46.26 Osteomyelitis of vertebra, lumbar region | CPT/HCPCS: 97110; 97116; 97162 ==

== ENCOUNTER → 2024-06-05 23:59 | Outpatient (BNV) | payer MEDICARE, SELFPAY ==
--- NOTE | 2024-06-10 14:51 | MHC.OFFVIS ---
Intake Visit Reasons: Remote Device check- [facility] Allergies bacitracin [Bacitracin] Allergy (Mild, Verified 01/21/24 09:17) ITCHING Sulfa (Sulfonamide Antibiotics) Allergy (Mild, Verified 01/21/24 09:17) Itching hydromorphone Adverse Reaction (Verified 01/21/24 09:17) Hallucinations [facility] Medical History Chronic atrial fibrillation Thoracic aortic aneurysm HTN (hypertension) Cardiac pacemaker in situ Chronic atrial flutter Surgical History History of hammer toe correction Hx of cholecystectomy History of permanent cardiac pacemaker placement Family History Father No problems noted. Mother Cancer Social History Household Members: Spouse Housing: House Do you presently have visiting nurse or other home services: Yes Alcohol intake: former Patient Tobacco Use Status: Never used Tobacco service: No Office Procedures Cardiac Device Check Cardiac Device Check Details: Remote pacemaker report generated 06/05/2024. Pacemaker function is adequate [id number] Cardiac Device Interrogation, pacemaker Procedure code (CPT) selection complete Assessment & Plan Assessment & Plan (1) Cardiac pacemaker in situ: Code(s): Z95.0 - Presence of cardiac pacemaker Category: Medical Plan: See above Coding Level of Care Code Procedure Only Diagnoses Cardiac pacemaker in situ Z95.0 CPT Codes Cardiac Device Check - Cardiac Device 12: [id number] Cardiac Device Interrogation, pacemaker ([id number])
== END ==
PROVIDERS: PCP Registered Nurse; Visit Provider Internal Medicine Cardiovascular Disease
DX: Z45.018 Encounter for adjustment and management of other part of cardiac pacemaker (principal)
CPT/HCPCS: 93294

== ENCOUNTER 2024-06-17 12:38 | Outpatient (AMB) | payer MEDICARE, SELFPAY ==
[2024-06-17 12:44] VITALS: BP 140/82; PULSE 75; BMI 27.3
--- NOTE | 2024-06-17 12:44 | A.OFFVIS_ITS ---
Vital Signs 06/17/24 12:44 Height 6 ft 1 in Weight 207 lb 3.752 oz BMI 27.3 BP 140/82 H Blood Pressure Location Lt brachial Pulse 75 Intake Visit Reasons: r/s [id number] 5 mos followup Intake Note: Follow-up with [facility] Dental Hygiene Professor Required: No Allergies bacitracin [Bacitracin] Allergy (Mild, Verified 01/21/24 09:17) ITCHING Sulfa (Sulfonamide Antibiotics) Allergy (Mild, Verified 01/21/24 09:17) Itching hydromorphone Adverse Reaction (Verified 01/21/24 09:17) Hallucinations Medication List - Last Reconciled 06/17/24 by Trever Hathaway MD acetaminophen (Tylenol) 650 mg PO Q6H PRN apixaban (Eliquis) 5 mg PO BID atorvastatin 20 mg PO BEDTIME cyanocobalamin (vitamin B-12) (Vitamin B-12) 1,000 mcg PO DAILY duloxetine 30 mg PO DAILY ferrous sulfate 324 mg PO MOWEFR metoprolol succinate ER 100 mg PO DAILY miconazole nitrate 2% 1 appl topical DAILY PRN quetiapine 25 mg PO BEDTIME PRN ramipril 5 mg PO DAILY vitamin D3-folic acid 95 mcg (3,800 unit)-1 mg (Cholecal DF) 1 tab PO DAILY HPI Comments Details: Catarino comes for follow-up. He is accompanied by his . He has been gradually recuperating and improving overall with improved walking with less than less support. He denies any cardiac symptoms although as per the he had a syncopal episode in [place] and was noted to have significant hypokalemia and subsequently another episode of near fall with weakness and lacerated wound on his calf again related to hypokalemia. Since then he has been taken off his diuretic therapy and switch to ramipril therapy. His potassium has improved although he has a follow-up appointment coming with his new primary care physic erick Dr. Pittman in [place]. He has had no palpitations. No heart failure symptoms. Denies any chest pain. [facility] Medical History Chronic atrial fibrillation Thoracic aortic aneurysm HTN (hypertension) Cardiac pacemaker in situ Chronic atrial flutter Surgical History History of hammer toe correction Hx of cholecystectomy History of permanent cardiac pacemaker placement Family History Father No problems noted. Mother Cancer Social History Household Members: Spouse Housing: House Do you presently have visiting nurse or other home services: Yes Alcohol intake: former Patient Tobacco Use Status: Never used Tobacco service: No Review of Systems Const Denies chills, Denies fatigue, Denies fever(s), Denies frequent falls, Denies weakness, Denies weight gain and Denies weight loss ENT Denies dizziness Card Denies chest pain, Denies leg edema, Denies lightheadedness, Denies palpitations, Denies dyspnea, Denies dyspnea on exertion, Denies orthopnea and Denies other (loss of consciousness) Resp Denies cough, Denies dyspnea and Denies dyspnea on exertion GI Denies hematochezia and Denies change in stool character Musc Denies abnormal gait, Denies muscle weakness, Denies numbness, Denies radiating pain into limb and Denies tingling Neuro Denies abnormal gait, Denies dizziness, Denies frequent falls, Denies numbness, Denies tingling and Denies weakness Endo Denies fatigue and Denies palpitations Physical Exam Vital Signs: Last Vital Signs Pulse 75 06/17/24 12:44 BP 140/82 H 06/17/24 12:44 BMI result Body Mass Index 27.3 Const General: cooperative, comfortable, no acute distress, alert, awake, Physically active and well groomed Nutritional Appearance: overweight Orientation/consciousness: patient oriented x3 Limitations: ambulation with cane Neck Neck: Yes trachea midline, Yes supple and Yes no JVD Resp Effort & Inspection: normal respiratory effort Auscultation: clear to auscultation bilaterally Cardio Jugular venous distension: no JVD Palpation: normal PMI Rhythm: abnormal rhythm irregularly irregular Heart sounds: S1 normal heart sound present and S2 normal heart sound present GI Auscultation: normal bowel sounds Skin General skin exam: no rashes or lesions noted and dry skin Neuro General: patient oriented x3 and no focal motor deficits Extrem General: Yes no clubbing, cyanosis or edema Psych Appearance: grossly normal Office Procedures Cardiac Device Check Cardiac Device Check Details: Single-chamber [facility] pacemaker in place. Programmed in VVI at 50 beats per minute. Ventricular pacing 13% of time. Ventricular sensing is adequate. Capture thresholds adequate and reprogrammed. Lead impedance is stable. Battery life is at about 7 years [id number] Cardiac Device Check, leadless/single lead pacemaker Procedure code (CPT) selection complete Assessment & Plan Assessment & Plan (1) Chronic atrial fibrillation: Code(s): I48.20 - Chronic atrial fibrillation, unspecified Category: Medical Plan: Chronic rate control atrial fibrillation/flutter without any symptoms. Has remained without any signs or symptoms of cardiac decompensation. Continue rate control approach. Continue full oral anticoagulation, currently on Eliquis 5 mg b.i.d.. Semi annual renal function test should be pursued. (2) Cardiac pacemaker in situ: Code(s): Z95.0 - Presence of cardiac pacemaker Category: Medical Plan: Cardiac pacemaker in-situ, working well. Reprogrammed for adequate function. Will follow remotely every 3 months and follow up in the clinic in 6 months time (3) Thoracic aortic aneurysm: Comment: 4.2 cm by echocardiogram December 2019 Code(s): I71.2 - Thoracic aortic aneurysm, without rupture Category: Medical Plan: Thoracic aortic aneurysm which is [id number]. Continue to monitor annually by echocardiogram. Follow-up echocardiogram 6 months time. Continue aggressive blood pressure control. Target goal blood pressure less than 130/84. Advised to avoid sudden strenuous isometric exercise. Continue statin therapy with target goal LDL less than 100 mg/dL. Follow up in the clinic in 6 months time, sooner p.r.n.. Thank you for allowing me to partake in his care Orders: Orders Basic Metabolic Panel Today I48.20 - Chronic atrial fibrillation, unspecified Digoxin Today I48.20 - Chronic atrial fibrillation, unspecified CA echo transthoracic complete 6 Months I71.2 - Thoracic aortic aneurysm, without rupture Coding Level of Care Code Est Pt Level 4 (88673) Complex EM visit Add On G2211 Diagnoses Chronic atrial fibrillation I48.20 Cardiac pacemaker in situ Z95.0 Thoracic aortic aneurysm I71.2 CPT Codes Cardiac Device Check - Cardiac Device 1: [id number] Cardiac Device Check, leadless/single lead pacemaker ([id number])
== END 2024-06-17 13:27 | disposition home or self-care (01) ==
PROVIDERS: PCP Registered Nurse; Visit Provider Internal Medicine Cardiovascular Disease
DX: I48.20 Chronic atrial fibrillation, unspecified (principal); Z95.0 Presence of cardiac pacemaker; I71.20 Thoracic aortic aneurysm, without rupture, unspecified
CPT/HCPCS: 93279; 99214; G2211

== ENCOUNTER → 2024-06-17 12:38 | Outpatient (BNVA) | payer MEDICARE, SELFPAY | PROVIDERS: PCP Registered Nurse; Visit Provider Internal Medicine Cardiovascular Disease | DX: I48.20 Chronic atrial fibrillation, unspecified (principal); I71.20 Thoracic aortic aneurysm, without rupture, unspecified; I10 Essential (primary) hypertension; I48.92 Unspecified atrial flutter; Z45.018 Encounter for adjustment and management of other part of cardiac pacemaker | CPT/HCPCS: 99212 ==

== ENCOUNTER 2024-11-11 13:15 | Emergency (ER) | payer MEDICARE, SELFPAY ==
[2024-11-11] VITALS (18 sets, daily range): BP systolic 125–199; BP diastolic 62–161; PULSE 61–80; RESP 14–18; TEMP 36.7; O2SAT 95–100; BMI 31.9
--- NOTE | ~2024-11-11 | CT_ITS ---
EXAMINATION: CT HEAD WITHOUT CONTRAST (STROKE PROTOCOL) CLINICAL INFORMATION: Stroke protocol. COMPARISON: None available. TECHNIQUE: Contiguous axial imaging was performed from the skull base to vertex without intravenous administration of contrast. This CT examination was performed using dose optimization techniques as appropriate, variously including the following: *Automated exposure control *Adjustment of mA and/or kV according to patient size (this includes techniques or standardized protocols for targeted exams where dose is matched to indication/reason for exam; i.e. extremities or head) *Use of iterative reconstruction technique FINDINGS: Intraparenchymal hematoma centered within the left thalamus, measuring 2.3 x 1.9 x 2.7 cm, with thalamic expansion, extension of blood into the left lateral ventricle, mildly layering in the posterior horn and partially casting the temporal horn. No obstructive hydrocephalus at this time. No midline shift. Localized vasogenic edema surrounding the hematoma with mild mass effect. No impending herniation or uncal perching is evident. The basal cisterns appear patent. No basal hemorrhage is present. No additional intracranial hemorrhage. No CT evidence of acute ischemic territory infarct. Negative hyperdense MCA sign. Negative insular ribbon sign. Mild to moderate supratentorial patchy white matter hypodensities, in keeping with small vessel ischemic changes. Mild atheromatous calcification of the bilateral carotid siphons and V4 segments vertebral arteries bilaterally. Globes and orbital contents image normally. There are bilateral lens replacements. No extracranial soft tissue abnormalities. The paranasal sinuses, mastoid air cells, and tympanic cavities are normally aerated. No suspicious bony abnormalities. There are no acute fractures evident. CT/CT head for STROKE IMPRESSION: 1. Intraparenchymal hematoma centered within the left thalamus, measuring 2.3 x 1.9 x 2.7 cm, with extension of blood into the left lateral ventricle. Mild associated localized mass effect, surrounding vasogenic edema, however no significant mass effect or midline shift. No hydrocephalus at this time. 2. No CT evidence of acute territorial ischemic infarct. 3. Mild to moderate changes of small vessel ischemia. This critical result was indicated to Dr. Romero via phone call at 1:40 PM, 11/11/2024, with findings understood. Electronically signed by: Pascual Layton MD 11/11/2024 01:43 PM EDT
--- NOTE | ~2024-11-11 | CT_ITS ---
EXAMINATION: CT ANGIOGRAM HEAD AND NECK CLINICAL INFORMATION: Right-sided weakness, difficulty with word finding. Rule out stroke/ICH. COMPARISON: Noncontrast head CT dated earlier same day. TECHNIQUE: CTA head and neck performed by intravenous bolus administration 70 mL of Omnipaque 350. Helical imaging was performed in the axial plane from the aortic arch to the skull vertex. A [address] head was also obtained. The data was processed at the food technologist's workstation for generation of MIP sequences. Angled MIPs and volume rendered reformatted images were also generated at an offline 3D workstation. Stenoses are assessed in accordance with NASCET criteria unless otherwise indicated. This CT examination was performed using dose optimization techniques as appropriate, variously including the following: *Automated exposure control *Adjustment of mA and/or kV according to patient size (this includes techniques or standardized protocols for targeted exams where dose is matched to indication/reason for exam; i.e. extremities or head) *Use of iterative reconstruction technique FINDINGS: NECK CTA: -AORTIC ARCH: Borderline aneurysmal at 4.3 cm. Mild to moderate atheromatous calcification. Three-vessel branching pattern. -GREAT VESSEL ORIGINS: Widely patent. No stenosis. Tortuous. -RIGHT COMMON CAROTID ARTERY: Normal in course and caliber to the level of the bifurcation. Moderate atheromatous calcification. -CERVICAL RIGHT INTERNAL CAROTID ARTERY: Irregular calcified and soft plaque contributes to an approximate 50% stenosis at the origin of the ICA, with luminal narrowing to 2.6 mm. The vessel is otherwise normal in course and caliber into the skull base. -LEFT COMMON CAROTID ARTERY: Normal in course and caliber to the level of the bifurcation. Moderate atheromatous calcification. -CERVICAL LEFT INTERNAL CAROTID ARTERY: There are calcified and soft plaque contributes to an approximate 20% stenosis at the origin of the ICA area the vessels otherwise normal in course and caliber into the skull base. -CERVICAL RIGHT VERTEBRAL ARTERY: Non-dominant. Mild to moderate origin stenosis due to calcified plaque. Otherwise normal in course and caliber into the skull base. -CERVICAL LEFT VERTEBRAL ARTERY: Dominant. Mild to moderate origin stenosis due to calcified plaque. Otherwise normal in course and caliber into the skull base. OTHER, SOFT TISSUES: -No lymphadenopathy or mass. No abnormal fluid collection or soft tissue swelling. -Normal thyroid. -Imaged superior mediastinal structures normal. -Imaged lung apices clear. CTA OF THE BRAIN: -INTRACRANIAL INTERNAL CAROTID ARTERIES: Calcific atherosclerotic disease of the intracranial internal carotid arteries without occlusion or flow-limiting stenosis. -RIGHT ANTERIOR CEREBRAL ARTERY: Normal A1 segment.. Normal arborization of the distal segments. -LEFT ANTERIOR CEREBRAL ARTERY: Normal A1 segment.. Normal arborization of the distal segments. -ANTERIOR COMMUNICATING ARTERY: Normal. -RIGHT MIDDLE CEREBRAL ARTERY: Normal M1 segment of the MCA without focal stenosis or occlusion. Normal bifurcation. Normal arborization of the distal segments. -LEFT MIDDLE CEREBRAL ARTERY: Normal M1 segment of the MCA without focal stenosis or occlusion. Normal bifurcation. Normal arborization of the distal segments. -RIGHT VERTEBRAL ARTERY V4: Nondominant. Becomes very diminutive after the origin of the PICA branch. -LEFT VERTEBRAL ARTERY V4: Dominant. Mild calcification. Normal PICA branch. Joins to form the basilar. -BASILAR ARTERY: Normal without focal stenosis or occlusion. Normal appearance of the proximal superior cerebellar arteries. Normal basilar tip. -RIGHT POSTERIOR CEREBRAL ARTERY: Normal P1 segment. Normal opacification of the distal CELL TENDER HELPER segments. -LEFT POSTERIOR CEREBRAL ARTERY: The P1 segment is diminutive. origin of the CELL TENDER HELPER with robust opacification of the posterior communicating artery. Normal opacification of the distal CELL TENDER HELPER segments. -POSTERIOR COMMUNICATING ARTERIES: The right is diminutive. Left as above. Normal opacification of the superior sagittal, straight, transverse, and sigmoid sinuses. No venous thrombosis. Similar intraparenchymal hematoma centered in the left thalamus, measuring approximately 2.3 x 2.1 x 3.0 cm, with eruption of blood products into the left lateral ventricle, partially casting the atrium and temporal horn. No evidence of AVM or other vascular abnormality surrounding the hematoma. CT/CT angio head neck STROKE IMPRESSION: CTA NECK: 1. Tortuous great vessels. No great vessel stenosis. Ascending aorta is minimally aneurysmal at 4.3 cm. 2. There is an approximate 50% stenosis of the origin of the right ICA due to irregular plaque. 3. There is an approximate 20% stenosis at the origin of the left ICA due to irregular plaque. 4. There are mild to moderate bilateral origin stenoses of the vertebral arteries secondary to calcified plaque. CTA HEAD: 1. There is no evidence of significant stenosis, occlusion, aneurysm, or dissection of the intracranial vasculature. There is no AVM or other vascular abnormality seen. 2. There is a bland appearing hematoma in the left thalamus measuring approximate 2.3 x 2.1 x 3.0 cm (measured 2.3 x 1.9 x 2.7 cm on the head CT slightly earlier) with mild associated localized mass effect. Blood has erupted into the left lateral ventricle and is partially casting the posterior atrium and temporal horn. There is no obstructive hydrocephalus or significant midline shift at this time. There is no intending herniation noted. Etiology of this hematoma is not clear on this CTA examination. Location is favorable for hypertensive hemorrhage. Electronically signed by: Pascual Layton MD 11/11/2024 02:06 PM EDT
[2024-11-11 13:24] LABS: Glucose, Whole Blood 137 mg/dL (60-115)
--- NOTE | 2024-11-11 13:25 | ECG_ITS ---
Test Reason : stroke Blood Pressure : */* mmHG Vent. Rate : 69 BPM Atrial Rate : * BPM P-R Int : * ms QRS Dur : 80 ms QT Int : 414 ms P-R-T Axes : * 57 -22 degrees QTcB Int : 443 ms Atrial fibrillation with premature ventricular or aberrantly conducted complexes ST & T wave abnormality, consider inferior ischemia ST & T wave abnormality, consider anterolateral ischemia Abnormal ECG When compared with ECG of 21-Jan-2024 09:11, ST now depressed in Anterior leads T wave inversion now evident in Anterolateral leads Referred By: Moses Romero Electronically Signed By: Aristides Leo
--- NOTE | 2024-11-11 13:26 | ED.NEUROSD ---
HPI - Neuro Symptoms/Deficit General Chief Complaint: Stroke Stated Complaint: STROKE ALERT,RT SIDE WKNSS,TROUBLE SPEAKING Time Seen by Provider: 11/11/24 13:22 Source: patient Mode of arrival: EMS Limitations: other (Expressive aphasia) History of Present Illness ED Provider: Dr. 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 According to his , the patient's was doing fine when he woke up this morning. He was sitting in a chair for about 1 hour. When she went to check on him at 12:30 , he had difficulty getting out of the chair and he had right-sided weakness and difficulty finishing his sentences. He was called an ambulance. Paramedics noted right-sided weakness and difficulty with word finding and the patient was brought in as a stroke alert. I evaluated the patient on the EMS stretcher. Patient was able to tell me his name, he mis-identified his age and when asked the month he stated ?Eden?. He was able to identify some objects but when asked to identify a hendricks he made a nonsensical statements. Patient had minimal movement of his right upper extremity against gravity but was able to lift the right lower extremity minimally against gravity. Patient was sent immediately to CT scan for stroke protocol Related Data Home Medications ?Medication ?Instructions ?Recorded ?Confirmed metoprolol succinate 100 mg 100 mg PO DAILY 12/06/21 06/17/24 tablet,extended release 24 hr acetaminophen 325 mg tablet 650 mg PO Q6H PRN Pain 11/18/23 06/17/24 (Tylenol) apixaban 5 mg tablet (Eliquis) 5 mg PO BID 01/21/24 06/17/24 atorvastatin 20 mg tablet 20 mg PO BEDTIME 01/21/24 06/17/24 cyanocobalamin (vitamin B-12) 1,000 mcg PO DAILY 01/21/24 06/17/24 1,000 mcg tablet (Vitamin B-12) duloxetine 30 mg capsule,delayed 30 mg PO DAILY 01/21/24 06/17/24 release ferrous sulfate 324 mg (65 mg 324 mg PO MOWEFR 01/21/24 06/17/24 iron) tablet,delayed release miconazole nitrate 2 % topical 1 appl topical DAILY PRN Rash 01/21/24 02/13/24 powder vitamin D3 95 mcg (3,800 1 tab PO DAILY 01/21/24 06/17/24 unit)-folic acid 1 mg tablet (Cholecal DF) quetiapine 25 mg tablet 25 mg PO BEDTIME PRN 06/17/24 06/17/24 ramipril 5 mg capsule 5 mg PO DAILY 06/17/24 06/17/24 Allergies Allergy/AdvReac Type Severity Reaction Status Date / Time bacitracin [Bacitracin] Allergy Mild ITCHING Verified 11/11/24 13:46 Sulfa (Sulfonamide Allergy Mild Itching Verified 11/11/24 13:46 Antibiotics) hydromorphone AdvReac Hallucinati Verified 11/11/24 13:46 ons [facility] Past Medical History Medical History Chronic atrial fibrillation Thoracic aortic aneurysm HTN (hypertension) Cardiac pacemaker in situ Chronic atrial flutter Surgical History History of hammer toe correction Hx of cholecystectomy History of permanent cardiac pacemaker placement Family History Family History Father No problems noted. Mother Cancer Social History Social History Household Members: Spouse Housing: House Do you presently have visiting nurse or other home services: Yes Alcohol intake: former Patient Tobacco Use Status: Never used Tobacco Smoked in Last 30 Days: No Use of substances other than those prescribed or required for medical reasons: No Advance Directives: No Advance Directives Information Provided: Yes service: No Physical Exam Vital Signs: Vital Signs: Last Vital Signs Temp 98.1 F 11/11/24 13:42 Pulse 69 11/11/24 15:18 Resp 18 11/11/24 15:18 BP 137/72 11/11/24 15:18 Pulse Ox 96 11/11/24 15:18 O2 Del Method Room Air 11/11/24 15:18 BMI result Body Mass Index 31.9 Exam: General: Awake, alert in no distress, oriented to person only, mis-identified age and month Head: Normocephalic, atraumatic EENT: PERRL, Lids normal, sclera normal, conjunctiva normal, nose normal , ears normal, throat without erythema or exudates Neck: Supple, no adenopathy Lung: breath sounds symmetric, no wheezing, rales or rhonchi Chest: symmetric movement, nontender Heart: regular rate and rhythm, normal S1, S2 no murmurs or rubs Abdomen: soft, non-tender, nondistended, normal bowel sounds Back: no vertebral tenderness, no CVAT Extremities: no deformities, moves all extremities symmetrically Neuro: General Awake, alert, oriented to person only, expressive aphasia, follows simple commands Cranial nerves: cranial nerves intact Strength: Only minimally able to lift his right arm and right leg up against gravity, left extremities strength were normal. Psych: Pleasant, cooperative Medications Administered Generic Name Dose Route Start Last Admin Trade Name Freq PRN Reason Stop Dose Admin Nicardipine HCl 25 mg/ Sodium 250 mls @ 0 mls/hr 11/11/24 14:00 11/11/24 15:00 Chloride IVCONT 5 mg/hr .Q0M LAW 50 mls/hr Titration Protocol Per Protocol Discontinued Medications Generic Name Dose Route Start Last Admin Trade Name Freq PRN Reason Stop Dose Admin Prothrombin Complex Concent ( 80 mls @ 480 mls/hr 11/11/24 13:45 11/11/24 14:10 Human) 2,000 unit/ IV IV 11/11/24 13:54 Infused Miscellaneous Supplies .Q10M ONE Infusion Iohexol 100 ml 11/11/24 13:42 11/11/24 13:42 Iohexol 350 Mg/Ml 100 Ml Infus..Btl IV 11/11/24 13:43 70 ml ONCE ONE Administration Medical Decision Making Medical Decision Making MDM Narrative: 74-year-old male with a history of atrial fibrillation on Eliquis, hypertension, thoracic aortic aneurysm, cardiac pacemaker, 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 Patient was evaluation revealed an expressive aphasia with significant right upper and right lower extremity weakness. Vital signs revealed an elevated blood pressure of 194/98. Differential diagnosis: ?Includes but is not limited to stroke, TIA, intracranial bleed, mass, mass effect, anemia, electrolyte abnormalities Course: 13:55 hours My interpretation patient's laboratory evaluation as follows: WBC was normal 7900. Normocytic anemia with an H&H of 13.7 and 38.4-this is chronic PT and INR were elevated 18.3 and 1.65. PTT was normal at 34.4. CT scan of the brain without IV contrast interpreted by the radiologist as follows (see report below): intraparenchymal hematoma centered within the left thalamus, measuring 2.3 x 1.9 x 2.7 cm, with thalamic expansion, extension of blood into the left lateral ventricle, no midline shift. Localized vasogenic edema surrounding the hematoma with mild mass effect. No impending herniation or uncal perching is evident. CT angiogram of the head and neck did not reveal any large vessel occlusions or aneurysms, radiologist felt that the bleed was more likely a hypertensive bleed. Given this finding, I ordered Kcentra 2000 units IV and nicardipine drip to keep the patient's systolic blood pressure between 130-150 mmHg range. I did discuss the patient's presentation with the [facility] transfer line. 14:42 I did discuss the patient's presentation with the neuro muffler hand at [facility]. He was able to look at the images on their system. He states that at this time he does not think that the patient needs a external ventricular drain at this time however if the patient were to deteriorate the patient would need this procedure. Unfortunately, [facility] is at capacity and can not accept the patient in transfer. He agrees with the treatment plan to keep the patient's blood pressure between 130-150 mmHg. I will contact the [place] transfer line to see if they had capacity to accept this patient in transfer. 16:05 I did discuss the patient's care with the [place] transfer line and the patient was accepted as an ED to ED transfer to [facility]. Accepting physician is Dr. Weaver. Patient will be transferred by ALS ambulance on a nicardipine drip. Admission/Observation Consideration of admission/observation: Escalation of care including admission/observation considered (Yes) Lab Data MDM Lab Attestation statement: I reviewed the patient's lab results. 11/11/24 13:31 11/11/24 13:31 Labs: Lab Results 11/11/24 11/11/24 Range/Units 13:20 13:31 WBC 7.9 (4.8-10.8) X10*3/uL RBC 3.99 L D (4.60-5.80) X10*6/uL Hgb 13.7 L D (14.0-18.0) g/dl Hct 38.4 L D (42.0-52.0) % MCV 96.2 (80.0-98.0) fL MCH 34.3 H (27.0-33.0) pg MCHC 35.7 (31.0-36.0) g/dl RDW 12.0 (11.0-16.0) % Plt Count 155 L (160-400) X10*3/uL MPV 9.8 (9.4-12.4) fL Immature Gran % (Auto) 0.4 (0.0-0.4) % Neut % (Auto) 51.6 (45-73) % Lymph % (Auto) 31.7 (20-40) % Keith % (Auto) 13.5 H (2-11) % Eos % (Auto) 1.8 (0-4) % Baso % (Auto) 1.0 (0-2) % Lymph # (Auto) 2.5 (1.2-4.9) X10*3/uL Keith # (Auto) 1.1 (0.1-1.2) X10*3/uL Eos # (Auto) 0.1 (0.0-0.4) X10*3/uL Baso # (Auto) 0.1 (0.0-0.2) X10*3/uL Abs Immat Gran (auto) 0.03 (0.00-0.03) X10*3/uL Absolute Neuts (auto) 4.1 (2.0-8.3) x10*3/uL Absolute Nucleated RBC 0.000 (0.0-0.012) X10*3/uL Nucleated RBC % (auto) 0.0 (0.0-0.2) /100WBC PT 18.3 H (10.9-12.4) SEC INR 1.6 H (0.9-1.1) APTT 34.4 (26.0-36.8) SEC Sodium 137 (135-145) mmol/L Potassium 4.1 (3.3-5.1) mmol/L Chloride 102 (96-108) mmol/L Carbon Dioxide 27 (22-29) mmol/L Anion Gap 12 (12-20) BUN 14 (9-16) mg/dL Creatinine 1.03 (0.5-1.4) mg/dL Estim Creat Clear Calc 71.5 Estimated GFR > 60 POC Glucose 137 H (60-115) mg/dL Random Glucose 148 H (60-115) mg/dL Calcium 9.2 (8.4-10.2) mg/dL Total Bilirubin 0.9 (0.0-1.0) mg/dL Direct Bilirubin 0.3 (0.0-0.5) mg/dL AST 35 (5-37) U/L ALT 27 (0-40) U/L Alkaline Phosphatase 89 (39-117) U/L Troponin I High Sens 13.2 (<3.5-35.0) ng/L Total Protein 8.3 H (6.5-8.0) g/dL Albumin 4.1 (3.5-5.0) g/dL Triglycerides 112 (<150) mg/dL Cholesterol 141 (<200) mg/dL LDL Cholesterol, Calc 53 (<100) mg/dL HDL Cholesterol 66 (>40) mg/dL Independent Interpretation I performed an independent interpretation of an: EKG Interpretation: My independent interpretation the patient's 12 EKG done on 11/11/2024 at 13:38 hours is as follows: Atrial fibrillation with a ventricular rate of 69, normal QRS duration QTC interval, occasional PVC, no ST segment elevation, less than [address] segment depression V4 through V6, Q-waves in V1 and V2. Compared to an EKG dated 01/21/2024 at 09:11 hours, the Q-waves are old in the ST segment depression is old as well. Radiology Impression Discussion of test interpretation with radiology: I discussed test interpretation with the radiologist and I have reviewed the radiologist's reading. Radiologist Impression: CT HEAD WITHOUT CONTRAST (STROKE PROTOCOL) CLINICAL INFORMATION: Stroke protocol. COMPARISON: None available. FINDINGS: Intraparenchymal hematoma centered within the left thalamus, measuring 2.3 x 1.9 x 2.7 cm, with thalamic expansion, extension of blood into the left lateral ventricle, mildly layering in the posterior horn and partially casting the temporal horn. No obstructive hydrocephalus at this time. No midline shift. Localized vasogenic edema surrounding the hematoma with mild mass effect. No impending herniation or uncal perching is evident. The basal cisterns appear patent. No basal hemorrhage is present. No additional intracranial hemorrhage. No CT evidence of acute ischemic territory infarct. Negative hyperdense MCA sign. Negative insular ribbon sign. Mild to moderate supratentorial patchy white matter hypodensities, in keeping with small vessel ischemic changes. Mild atheromatous calcification of the bilateral carotid siphons and V4 segments vertebral arteries bilaterally. Globes and orbital contents image normally. There are bilateral lens replacements. No extracranial soft tissue abnormalities. The paranasal sinuses, mastoid air cells, and tympanic cavities are normally aerated. No suspicious bony abnormalities. There are no acute fractures evident. IMPRESSION: 1. Intraparenchymal hematoma centered within the left thalamus, measuring 2.3 x 1.9 x 2.7 cm, with extension of blood into the left lateral ventricle. Mild associated localized mass effect, surrounding vasogenic edema, however no significant mass effect or midline shift. No hydrocephalus at this time. 2. No CT evidence of acute territorial ischemic infarct. 3. Mild to moderate changes of small vessel ischemia. This critical result was indicated to Dr. Romero via phone call at 1:40 PM, 11/11/2024, with findings understood. Electronically signed by: Pascual Layton MD 11/11/2024 01:[address] angio head neck STROKE IMPRESSION: CTA NECK: 1. Tortuous great vessels. No great vessel stenosis. Ascending aorta is minimally aneurysmal at 4.3 cm. 2. There is an approximate 50% stenosis of the origin of the right ICA due to irregular plaque. 3. There is an approximate 20% stenosis at the origin of the left ICA due to irregular plaque. 4. There are mild to moderate bilateral origin stenoses of the vertebral arteries secondary to calcified plaque. CTA HEAD: 1. There is no evidence of significant stenosis, occlusion, aneurysm, or dissection of the intracranial vasculature. There is no AVM or other vascular abnormality seen. 2. There is a bland appearing hematoma in the left thalamus measuring approximate 2.3 x 2.1 x 3.0 cm (measured 2.3 x 1.9 x 2.7 cm on the head CT slightly earlier) with mild associated localized mass effect. Blood has erupted into the left lateral ventricle and is partially casting the posterior atrium and temporal horn. There is no obstructive hydrocephalus or significant midline shift at this time. There is no intending herniation noted. Etiology of this hematoma is not clear on this CTA examination. Location is favorable for hypertensive hemorrhage. Electronically signed by: Pascual Layton MD 11/11/2024 02:06 PM EDT Independent Historian Clinical information obtained from an independent historian. History obtained from or confirmed by: Spouse and Other (Daughter) External Record Review External record reviewed: Inpatient record Chronic Conditions Patient?s care impacted by: Hypertension NIH Stroke Scale Internal: Initial- Upon Arrival Level of Consciousness: Alert Level of Consciousness Questions: Answers neither question correctly Level of Consciousness Commands: Performs both tasks correctly Best Gaze: Normal Visual: No visual loss Facial Palsy: Normal Motor Arm (Right): Some effort against gravity Motor Arm (Left): No drift Motor Leg (Right): Some effort against gravity Motor Leg (Left): No drift Limb Ataxia: Absent Sensory: Normal Best Language: Mild to moderate aphasia Dysarthia: Normal Extinction and Inattention: No abnormality Score: 7 Critical Care Time Critical Care Time Critical Care Time: Yes Total Critical Care Time: 90 Attestation: Critical Care: The patient was critically ill with a high probability of imminent or life threatening deterioration. I spent greater than 30 minutes of discontinuous time evaluating the patient,delivering critical care at the bedside, discussing and evaluating pertinent data with consultants. Critical care time does not include time spent performing separately billable procedures or teaching. Total time spent performing critical care was 90 minutes. Discharge Plan Discharge Clinical Impression: Intracranial hemorrhage, Elevated blood pressure reading, Expressive aphasia Patient Disposition: [facility] Transfer Details: ED to ED transfer to [facility], accepting physician is Dr. Weaver Prescriptions: No Action atorvastatin 20 mg tablet 20 mg PO BEDTIME duloxetine 30 mg capsule,delayed release(DR/EC) 30 mg PO DAILY Eliquis 5 mg tablet 5 mg PO BID miconazole nitrate 2 % Powder 1 appl TOPICAL DAILY PRN (Reason: Rash) Rx Instructions: Groin cyanocobalamin (vitamin B-12) [Vitamin B-12] 1,000 mcg Tablet 1,000 mcg PO DAILY ferrous sulfate 324 mg (65 mg iron) Tablet,Delayed Release (Dr/Ec) 324 mg PO Rx Instructions: Monday, Monday, Monday Cholecal DF 95 mcg (3,800 unit)-1 mg Tablet 1 tab PO DAILY quetiapine 25 mg tablet 25 mg PO BEDTIME PRN acetaminophen [Tylenol] 325 mg Tablet 650 mg PO Q6H PRN (Reason: Pain) metoprolol succinate 100 mg tablet extended release 24 hr 100 mg PO DAILY ramipril 5 mg capsule 5 mg PO DAILY Print Language: Faroese
[2024-11-11 13:38] LABS: MANUAL DIFF FLAG NO
[2024-11-11 13:40] LABS: Basophils Absolute Auto 0.1 X10*3/uL (0.0-0.2); Eosinophils Absolute Auto 0.1 X10*3/uL (0.0-0.4); Eosinophils Percent Auto 1.8 % (0-4); Hematocrit 38.4 % (42.0-52.0); Hemoglobin 13.7 g/dl (14.0-18.0); Imm Gran Abs Auto 0.03 X10*3/uL (0.00-0.03); Imm Gran Pct Auto 0.4 % (0.0-0.4); Lymphocytes Absolute Auto 2.5 X10*3/uL (1.2-4.9); Lymphocytes Percent Auto 31.7 % (20-40); Mean Corpuscular HGB Conc 35.7 g/dl (31.0-36.0); Mean Corpuscular Hemoglobin 34.3 pg (27.0-33.0); Mean Corpuscular Volume 96.2 fL (80.0-98.0); Mean Platelet Volume 9.8 fL (9.4-12.4); Monocytes Absolute Auto 1.1 X10*3/uL (0.1-1.2); Monocytes Percent Auto 13.5 % (2-11); Neutrophils Absolute Auto 4.1 x10*3/uL (2.0-8.3); Neutrophils Percent Auto 51.6 % (45-73); Platelet Count 155 X10*3/uL (160-400); Red Blood Count 3.99 X10*6/uL (4.60-5.80); White Blood Count 7.9 X10*3/uL (4.8-10.8)
[2024-11-11] MEDS: iohexoL 350 MG/ML 100 ML INFUS..BTL IV (13:42)
[2024-11-11 13:49] LABS: INTERNATIONAL NORM RATIO 1.6 (0.9-1.1); Prothrombin Time 18.3 SEC (10.9-12.4)
[2024-11-11 13:51] LABS: Partial Thromboplastin Time 34.4 SEC (26.0-36.8)
[2024-11-11] MEDS: Hum Prothrombin Cplx(PCC)4Fact 2,000 UNIT in Container,Empty 0 ML 480 UNIT IV (13:56)
[2024-11-11] MEDS: niCARdipine HCL 25 MG in 0.9 % Sodium Chloride 240 ML 50 MG IVCONT (14:00)
[2024-11-11 14:07] LABS: Alanine Aminotransferase 27 U/L (0-40); Albumin Level 4.1 g/dL (3.5-5.0); Alkaline Phosphatase 89 U/L (39-117); Anion Gap 12 (12-20); Aspartate Amino Transferase 35 U/L (5-37); Bilirubin Direct 0.3 mg/dL (0.0-0.5); Bilirubin Total 0.9 mg/dL (0.0-1.0); Blood Urea Nitrogen 14 mg/dL (9-16); Calcium 9.2 mg/dL (8.4-10.2); Carbon Dioxide 27 mmol/L (22-29); Chloride 102 mmol/L (96-108); Cholesterol 141 mg/dL (<200); Creatinine Clr Calc Pharmacy 71.5; Estimated Glomerular Filt Rate > 60; Glucose Random 148 mg/dL (60-115); HDL Cholesterol 66 mg/dL (>40); LDL Cholesterol Calculated 53 mg/dL (<100); Potassium 4.1 mmol/L (3.3-5.1); Sodium 137 mmol/L (135-145); Total Protein 8.3 g/dL (6.5-8.0); Triglycerides 112 mg/dL (<150)
--- NOTE | 2024-11-11 14:12 | PC.NURSE ---
deficit right upper and lower ext is . worse. now unable to squeeze hand. fleeting improvement in dyphasia but has returned. unable to find 's name. some spech is clear. facial droop has resolved. position is 30 percent HOB. Afib on monitor. has pacemaker.
[2024-11-11 14:13] LABS: Troponin-I High Sensitivity 13.2 ng/L (<3.5-35.0)
[2024-11-11 14:16] LABS: Stroke Lab Use COMPLETE
--- NOTE | 2024-11-11 14:34 | PC.NURSE ---
dysphasia continues. unable to complete ABC's. RUE and RLE weakness unchanged from last check. and daughter at bedside aware o fplan for transfer and awaiting knowledge of where to.
--- NOTE | 2024-11-11 15:26 | PC.NURSE ---
continues to have aphasia and RUE RLE weakness. no change since last check. Pt was incontinent of urine. cleansed.
--- NOTE | 2024-11-11 15:54 | PC.NURSE ---
Call to [facility] for report. Staff isn't available to take report at this time.
--- NOTE | 2024-11-11 16:10 | PC.NURSE ---
rn TO rn WITH Mirian lemon [place].
--- NOTE | 2024-11-11 16:42 | PC.NURSE ---
Pt has market improvement in strenth and leg lift and aphasia. Still struggles with some words but overall improvement.
--- NOTE | 2024-11-11 16:55 | PC.NURSE ---
report to EMS at bedside.
--- OUTSIDE RECORDS SUMMARY | 2024-11-11 17:16 | XMS_ITS | Encounter Summary ---
Author Organization [facility] Address [address] [place] [id number] Care Team Providers Care Human Resources Project Coordinator Name Role Phone Jhonatan Calderon RN Unavailable Velvet Pittman MD Primary Care Provider [phone] Encounter Details Date Type Department Care Team (Late st Contact Info) Description 01/04/2024 Scanned Document INPATIENT REHAB [address] [place] [id number] Colin Meeks [address] [place], [place] [id number] Other chronic osteomyelitis, unspecified site (HCC) Social History Tobacco Use Types Packs/Day Years Used Date Smoking Tobacco: Never Assessed [facility] Utilities Answer Date Recorded In the past 12 months has [employer], gas, oil, or water [employer] threatened to shut off services in your home? No 11/19/2023 AUDIT-C Answer Date Recorded Q1: How often do you have a drink containing alcohol? Never 12/06/2023 Q2: How many drinks containi ng alcohol do you have on a typical day when you are drinking? Patient does not drink Q3: How often do you have si x or more drinks on one occasion? Never 12/06/2023 PHQ-2 Answer Date Recorded PHQ-2 Total Score 0 01/03/2024 Hunger Vital Sign Answer Date Recorded Within the past 12 months, y ou worried that your food would run out before you got the money to buy more. Never true 11/19/19 24 Within the past 12 months, t he food you bought just didn't last and you didn't have money to get more. Never true 11/19/2023 PRAPARE - Transportation Answer Date Re corded In the past 12 months, has l ack of transportation kept you from medical appointments or from getting medications? No 12/15 In the past 12 months, has l ack of transportation kept you from meetings, work, or from getting things needed for daily living? No 01/03/2024 Housing Stability Vital Sign Answer Jimmie e Recorded In the last 12 months, was t here a time when you were not able to pay the mortgage or rent on time? No 11/19/2023 In the last 12 months, how many places have you lived? 1 11/19/2023 In the last 12 months, was t here a time when you did not have a steady place to sleep or slept in a assisted (including now)? No 11/19/2023 Sex and Gender Information Value Date Recorded Sex Assigned at Male 11/18/2023 7:54 PM EDT Legal Sex Male 3:18 PM EDT Gender Identity Male 11/18/2023 7:54 PM EDT Sexual Orientation Heterosexual (straight) 11/17 7:54 PM EDT documented as of this encounter Plan of Treatment Upcoming Encounters Date Type Department Care Team (Late st Contact Info) Description 12/24/2024 10:30 AM EDT Office Visit [facility] [id number] [address] [id number] Nomi Barreto APRN [address] [address] documented as of this encounter Visit Diagnoses Diagnosis Other chronic osteomyelitis, unspecified site (HCC) documented in this encounter Care Teams Human Resources Project Coordinator Relationship Specialty Start Date End Date Velvet Pittman MD [address] [place] [id number] PCP - General 01/02/24 Jhonatan Calderon RN [address] [place] [address] Nurse Navigator Surgery, Neurosurgery 11/20/23 documented as of this encounter
--- OUTSIDE RECORDS SUMMARY | 2024-11-11 17:16 | XMS_ITS | Encounter Summary ---
Author Organization [facility] Address [address] [place] [id number] Care Team Providers Care Auto Wheel Alignment Specialist Name Role Phone Jhonatan Calderon RN Unavailable Velvet Pittman MD Primary Care Provider [phone] Encounter Details Date Type Department Care Team (Late st Contact Info) Description 09/20/2024 Scanned Document C FUEL INJECTION SERVICER SCAN Physical Therapy, Scan Social History Tobacco Use Types Packs/Day Years Used Date Smoking Tobacco: Never Smokeless Tobacco: Never Alcohol Use Standard Drinks/Week Comments Yes 0 (1 standard drink = 0.6 oz pur e alcohol) social [facility] Utilities Answer Date Recorded In the past 12 months has [employer], gas, oil, or water [employer] threatened to shut off services in your [...] place to sleep or slept in a penitentiary (including now)? No 11/19/2023 Sex and Gender [...] 10:30 AM EDT Office Visit [facility] [id number] [address] [phone] Nomi Barreto APRN [address] [address] documented as of this encounter Visit Diagnoses Not on filedocumented in this encounter Care Teams Auto Wheel Alignment Specialist Relationship Specialty Start Date End Date Velvet Pittman MD [address] [place] [id number] PCP - General 01/02/24 Jhonatan Calderon RN [address] [place] [id number] Nurse Navigator Surgery, Neurosurgery 11/20/23 documented as of this encounter
--- OUTSIDE RECORDS SUMMARY | 2024-11-11 17:16 | XMS_ITS | Clinical Summary ---
Author Organization [facility] Address [address] [place] [phone] Phone Care Team Providers Care Court Crier Name Role Phone Velvet Pittman MD Primary Care Provider [phone] Allergies Active Allergy Reactions Criticality Noted Date Comments Bacitracin Itching 05/08/2024 itx Gabapentin 06/11/2024 Morphine 06/11/2024 Medications hydrocortisone 2.5 % cream Apply topically. Apply sparingly to affected areas 1 - 2 times a day as needed Active warfarin (COUMADIN) 5 mg tablet Take by mouth. TAKE 1 TO 1 & 1/2 TABLETS DAILY DIRECTED BY THE ANTICOAGULATION ROEL. MAY CAUSE HEAVY BLEEDING. TAKE AT THE SAME TIME EVERYDAY. DO NOT CHANGE DIETARY HABITS. Active potassium chloride (KLOR-CON M20) 20 mEq CR tablet Take 1 tablet (20 mEq total) by mouth 1 (one) time each day. Tablet may be swallowed whole (do not crush/chew/suck on) OR broken in half and each half swallowed separately OR dissolved (whole tablet) in ~4 ounces of water (allow ~2 minutes to dissolve, stir well and administer immediately). Active metoprolol succinate (TOPROL-XL) 100 mg 24 hr tablet Take 1 tablet (100 mg total) by mouth 1 (one) time each day. Do not crush or chew. Active multivitamin with minerals tablet Take 1 tablet by mouth 1 (one) time each day. Active prazosin (MINIPRESS) 2 mg capsule Take 1 capsule (2 mg total) by mouth at bedtime. Active sildenafiL (VIAGRA) 100 mg tablet Take 1 tablet (100 mg total) by mouth. Take 1 tab as needed 60 minutes prior to sexual relations, Max is 100mg in 24 hours Active triamterene-hyd roCHLOROthiazid e (DYAZIDE) 37.5-25 mg per capsule Take 1 capsule by mouth 1 (one) time each day. Take 1 capsule by mouth every morning Active Active Problems Problem Noted Date Diagnosed Date Actinic keratosis 05/08/2024 Diagnosis unknown 05/08/2024 Overview (05/08/2024): CARDIAC CATH 1994 NORMAL CORONARY ARATERIES Cirrhosis, Laennec's ([facility] V24, [facility] V28) 05/08/2024 CRVO (central retinal vein occlusion) ([facility] V 28) 05/08/2024 Degenerative spondylolisthesis 05/08/2024 Diverticulosis of colon 05/08/2024 Esophageal varices ([facility] V24, [facility] V28) Overview (05/08/2024): Esophageal varices without mention of bleeding Gout 05/08/2024 Hepatitis 05/08/2024 Overview (05/08/2024): HEPATITIS, chronically elevated liver function studies . 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 Lumbago 05/08/2024 Overview (05/08/2024): Lumbago l4-5 disc surgery and fusion dr lemus Melanoma ([facility] V24, [facility] V28) 05/08/2024 Squamous cell carcinoma of skin 05/08/2024 Diagnosis unknown 05/08/2024 Overview (05/08/2024): Thoracic or lumbosacral neuritis or radiculitis, unspecified Thrombocytopenia ([facility] V24) 05/08/2024 Immunizations Name Administration Dates Next Due H1N1 Inj 07/07/2009 Influenza trivalent, 0.5mL ( Fluzone High-dose) 65yo and older 03/16/2009 Influenza, Unspecified 04/05/2021,2016,04/02/2015,2013,06/28/2013,05/11/2012,06/28/2011,0 04/09/2010,04/06/2009,04/16/2008, 007 Pneumococcal conjugate 13 va lent (Prevnar 13, PCV13) 2mo and older 01/26/2015,01/26/2015,01/06/2014 Td Tetanus diptheria (Tdvax) 7yo and older 07/07/2017,07/17/1995 Tdap Tetanus diptheria acell ular pertussis (Boostrix; Adacel) 7yo and older 04/06/2017 Zoster Live 04/12/2010 Surgical History Surgery Date Site/Laterality Comments CARDIAC CATHETERIZATION 1993 PROCEDURE: HISTORICAL CARDIAC CATH; COMMENT: normal coronary arteries OTHER SURGICAL HISTORY PROCEDURE: AK SUTURE INFRAPATELLAR TENDON PRIMARY; COMMENT: rt APPENDECTOMY PROCEDURE: HISTORICAL APPENDECTOMY HERNIA REPAIR PROCEDURE: HISTORICAL HERNIA REPAIR/ING; COMMENT: (left) OTHER SURGICAL HISTORY 2000 PROCEDURE: COLORECTAL CANCER,FLEX SIGMOIDOSCOPY ROTATOR CUFF REPAIR PROCEDURE: HISTORICAL ROTATOR CUFF REPAIR; COMMENT: left 2004 COLONOSCOPY W/ BIOPSIES 04/28/2006 PROCEDURE: AK COLONOSCOPY W/BIOPSY SINGLE/MULTIPLE; COMMENT: 5mm tub adenoma ESOPHAGOGASTRODUODENOSCOPY 05/09/2007 PROCEDURE: AK EGD TRANSORAL BIOPSY SINGLE/MULTIPLE; COMMENT: duo bx neg; min esoph varices PACEMAKER IMPLANT 2007 PROCEDURE: HISTORICAL PACEMAKER COLONOSCOPY 02/15/2011 PROCEDURE: HISTORICAL COLONOSCOPY; COMMENT: minimal diverticulosis, no polyps ESOPHAGOGASTRODUODENOSCOPY 02/15/2011 PROCEDURE: AK ESOPHAGOGASTRODUODENOSCOPY TRANSORAL DIAGNOSTIC; COMMENT: no varices OTHER SURGICAL HISTORY PROCEDURE: HISTORY OTHER; COMMENT: rt knee repair patella tendon APPENDECTOMY PROCEDURE: AK APPENDECTOMY TONSILLECTOMY PROCEDURE: HISTORICAL TONSILLECTOMY CHOLECYSTECTOMY 2014 PROCEDURE: HISTORICAL CHOLECYSTECTOMY; COMMENT: Done in [place] COLONOSCOPY 2015 PROCEDURE: HISTORICAL COLONOSCOPY; COMMENT: no polyps OTHER SURGICAL HISTORY PROCEDURE: AK CORRECTION HAMMERTOE; COMMENT: rt 2nd toe 2017 OTHER SURGICAL HISTORY PROCEDURE: AK ARTHRD ANT INTERBODY MIN DSC LUMBAR; COMMENT: dr lemus approx 2003 OTHER SURGICAL HISTORY PROCEDURE: HISTORICAL SQUAMOUS CELL CA; COMMENT: SCC spring 2019 left upper arm while in [place] specifics unknown 06/29 chest (in situ) 05/30 right ear (while in [place] specifics unknown margin wants to clear ) 12/28 left thigh (well differentiated, invasive) Medical History Medical History Date Comments Cardiomegaly DX:Cardiomegaly; COMMENT: cardiac cath. 1993--normal coronary arteries Diseases of tricuspid valve DX:D iseases of tricuspid valve; COMMENT: mitral regurg. Alcoholic liver damage, unspecified DX:Alcoholic liver damage, unspecified Essential hypertension, benign D X:Essential hypertension, benign Hepatitis, unspecified 03/06/2006 DX:Hepati tis, unspecified Atrial flutter (CMS/HCC V24, [facility] V28) 02/17/2007 DX:Atrial flutter (HCC) Esophageal varices without m ention of bleeding 05/11/2007 DX:Esophageal varices withou t mention of bleeding; COMMENT: Minimal at EGD 05/09/2007. Duodenal bx negative. Cirrhosis, Laennec's ([facility]/ [facility] V24, [facility]/H[facility] V28) 01/14/2008 DX:Cirrhosis, Laennec's (HCC ) Cardiac pacemaker in situ 04/21/2008 DX:Car diac pacemaker in situ; COMMENT: Placed mar 2008 Gallstones 07/01/2009 DX:Gallstones Thrombocytopenia ([facility] V24) 12/19/2011 D X:Thrombocytopenia (HCC) Actinic keratosis, hx of DX:Acti roel keratosis, hx of Unspecified malignant neopla sm of skin of other and unspecified parts of face DX:Unspecified malignant neoplasm of skin of other and unspecified parts of face H/O benign neoplasm of colon 04/28/2006 DX: H/O benign neoplasm of colon; COMMENT: 5 mm tubular adenoma at 80 cm, descending colon, removed at colonoscopy 04.28.06. Negative colonoscopy 02/15/2011, no colon cancer screening needed for 5 years. Personal history of malignan t melanoma of skin DX:Personal history of malig nant melanoma of skin; COMMENT: Malignant melanoma spring 2019 left upper quadrant abdominal wall while in [place] specifics unknown by patient will have results faxed did not require lymph node investigation. History of squamous cell car cinoma of skin 12/18/2013 DX:History of squamous cell carcinoma of skin; COMMENT: SCC 06/29 chest (in situ) 05/30 right ear (while in [place] specifics unknown margin wants to clear ) 12/28 left thigh (well differentiated, invasive) History of squamous cell car cinoma of skin DX:History of squamous cell carcinoma of skin; COMMENT: SCC spring 2019 left upper arm while in [place] specifics unknown 06/29 chest (in situ) 05/30 right ear (while in [place] specifics unknown margin wants to clear ) 12/28 left thigh (well differentiated, invasive) Melanoma (CMS/HCC V24, CMS/HCC V28) 02/12/2020 DX:Melanoma (HCC); COMMENT: 11/03 left lateral abdomen Squamous cell carcinoma of skin 02/12/2020 DX:Squamous cell carcinoma of skin; COMMENT: Left upper arm Gout 08/16/2005 DX:Gout Diverticulosis of colon 04/28/2006 DX:Diver ticulosis of colon Family History Medical History Relation Name Comments Colon cancer Neg Hx Relation Name Status Comments Brother Alive Father (Age 70,S) ascvd Mother (Age 70,s) ? Sister Alive Social History Tobacco Use Types Packs/Day Years Used Date Smoking Tobacco: Former Cigarettes 0 02/19/1965 - 08/02/1979 Smokeless Tobacco: Never Tobacco Cessation:Counseling Given: Not Answered Alcohol Use Standard Drinks/Week Comments No 0 (1 standard drink = 0.6 oz pur e alcohol) Sex and Gender Information Value Date Recorded Sex Assigned at Not on file Legal Sex Male 3:28 PM EST Gender Identity Not on file Sexual Orientation Not on file Obstetrics History Last Filed Vital Signs Vital Sign Reading Time Taken Comments Blood Pressure - - Pulse - - Temperature - - Respiratory Rate - - Oxygen Saturation - - Inhaled Oxygen Concentration - - Weight 89.8 kg (198 lb) 06/11/2024 9:53 AM EST Height 185.4 cm (6' 1 ) 06/11/2024 9:53 AM EST Body Mass Index 26.12 06/11/2024 9:53 AM EST Plan of Treatment Health Maintenance Due Date Last Done Comments Diabetes: Annual Foot Exam 10/01/1959 Diabetes: Annual Retina Eye Exam 10/01/1959 Hepatitis A Vaccines (1 of 2 - Risk 2-dose series) 1968 Hepatitis B Vaccines (1 of 3 - Risk 3-dose series) 2009 Pneumococcal Vaccine: 50+ Years (2 of 2 - PPSV23) 05/10/2017 03/15/2017, 01/26/2015, 01/26/2015, Additional history exists Zoster Vaccines (2 of 2) 09/14/2019 07/20/2019, 03/18 Depression Screening 06/15/2022 Falls Risk Assessment 06/15/2022 Medicare Annual Wellness Visit 06/15/2022 Social Influencers of Health Screening 06/15/2022 COVID-19 Vaccine ( season) 2024 05/10/2022, 05/20/2021, 09/28/2020, Additional history exists Diabetes: Annual Urine Albumin-Creatinine Ratio (uACR) 06/07/2024 Diabetes: Blood Sugar Control Test (HGBA1C) 06/07/2024 08/03/2023, 12/22/2020 Diabetes: Annual GFR (Glomerular Filtration Rate) 05/26/2025 05/26/2024, 05/08/2024, 05/08/2024, Additional history exists Hypertension/CHF/CAD Annual BMP Blood Test 05/26/2025 05/26/2024, 05/08/2024, 05/08/2024, Additional history exists Colorectal Cancer Screening: Colonoscopy 07/04/2026 07/04/2016 DTaP,Tdap,and Td Vaccines (5 - Td or Tdap) 07/07/2027 07/07/2017, 04/06/2017, 04/06/2007, Additional history exists Cholesterol Screening (Lipid Panel) 10/06/2028 10/07/2023, 12/22/2020 Hepatitis C Screening Completed 09/08/2001 RSV Immunization Adult Patients Completed 06/23/2023 Influenza Vaccine Completed 04/15/2024, , 04/29/2022, Additional history exists Abdominal Aortic Aneurysm (AAA) Screen Completed 06/07/2024 HIB Vaccines Aged Out No longer eligi ble based on patient's age to complete this topic HPV Vaccines Aged Out No longer eligi ble based on patient's age to complete this topic IPV Vaccines Aged Out No longer eligi ble based on patient's age to complete this topic MMR Vaccines Aged Out No longer eligi ble based on patient's age to complete this topic Meningococcal ACWY Vaccine Aged Out N o longer eligible based on patient's age to complete this topic Meningococcal B Vaccine Aged Out No l onger eligible based on patient's age to complete this topic RSV Immunization Patients Under 20 months Aged Out No longer eligible based on patient's age to complete this topic Varicella Vaccines Aged Out No longer eligible based on patient's age to complete this topic Procedures Procedure Name Priority Date/Time Associated Diagnosis Comments VAS US DUPLEX AAA SCREENING Routine 06/07/2024 10:53 AM EST Screening for AAA (abdominal aortic aneurysm) ANNUAL BMP BLOOD TEST Routine 12/22/2020 HEMOGLOBIN A1C Routine 12/22/2020 LIPID PANEL Routine 12/22/2020 COLONOSCOPY Routine 07/04/2016 HEPATITIS C SCREENING Routine 09/08/2001 from Last 3 Months or Most Recently Relevant to Health Maintenance Results * Vascular US abdominal aorta aneurysm (AAA) screening (06/07/2024 10:53 AM EST) Anatomical Region Laterality Modality Vascular, Abdomen Ultrasound 06/07/2024 11:5 7 AM EST Impressions 06/07/2024 12:00 PM EST The abdominal aorta is normal in caliber, without evidence of aneurysm. ??A small to moderate amount of atherosclerotic plaque is noted. Code 19449 CT T[facility] G9551 -------- FINAL REPORT -------- Dictated By: David Crawford Dictated Date: 06/07/2024 11:57 ET Assigned Physician: David Crawford Reviewed and Electronically Signed By: David Crawford Signed Date: 06/07/2024 12:00 ET Workstation ID: [id number] Transcribed By: Self Edit Transcribed Date: 06/07/2024 11:57 ET Narrative 06/07/2024 12:00 PM EST HISTORY: The patient is a 73-year-old male undergoing screening for an abdominal aortic aneurysm. FINDINGS: Real-time ultrasonography of the abdominal aorta is performed. ??The aorta is normal in caliber, with the suprarenal aorta measuring 2.9 cm in AP diameter x 2.7 cm in transverse dimension; the proximal infrarenal aorta measuring 2.6 x 2.3 cm; and the distal infrarenal aorta measuring 2.5 x 2.4 cm. ??A small to moderate amount of atherosclerotic plaque is present. ??The common iliac arteries are normal in caliber bilaterally, with the right RACHEL measuring 1.5 cm and the left RACHEL measuring 1.7 cm. Procedure Note David Crawford MD - 06/07/2024 HISTORY: The patient is a 73-year-old male undergoing screening for anabdominal aortic aneurysm. FINDINGS: Real-time ultrasonography of the abdominal aorta is performed.The aorta is normal in caliber, with the suprarenal aorta measuring 2.9 cmin AP diameter x 2.7 cm in transverse dimension; the proximal infrarenalaorta measuring 2.6 x 2.3 cm; and the distal infrarenal aorta measuring2.5 x 2.4 cm. A small to moderate amount of atherosclerotic plaque ispresent. The common iliac arteries are normal in caliber bilaterally,with the right RACHEL measuring 1.5 cm and the left RACHEL measuring 1.7 cm. IMPRESSION: The abdominal aorta is normal in caliber, without evidence of aneurysm. Asmall to moderate amount of atherosclerotic plaque is noted. Code 97133 CT T[facility]adiology G9551 -------- FINAL REPORT -------- Dictated By: David Crawford Dictated Date: 06/07/2024 11:57 ET Assigned Physician: David Crawford Reviewed and Electronically Signed By: David Crawford Signed Date: 06/07/2024 12:00 ET Workstation ID: [id number] Transcribed By: Self Edit Transcribed Date: 06/07/2024 11:57 ET Velvet Pittman MD CV VASCULAR PROCEDURES Final R esult * Annual BMP Blood Test (12/22/2020) Pathologist [facility] Annual BMP Blood Test abstracted Historical Provider HEALTH MAINTENANCE Final Result * Hemoglobin A1c (12/22/2020) Hemoglobin A1C 5.9 <=6.5 % Blood Venous blood specimen / Unknown [facility] Provider LAB BLOOD ORDERABLES Rosie l Result * (ABNORMAL) Lipid panel (12/22/2020) [facility] LDL/HDL Ratio 3 0 - 4 Triglycerides 100 0 - 150 mg/dL Cholesterol 196 0 - 200 mg/dL HDL 69 >=40 mg/dL LDL Cholesterol 107(A) 0 - 100 mg/dL Blood Venous blood specimen / Unknown Result [facility] Provider LAB BLOOD ORDERABLES Rosie l Result * Colonoscopy (07/04/2016) Pathologist [facility] Colonoscopy no interpretation , abstracted Anatomical Region Laterality Modality Other Result [facility] Provider HEALTH MAINTENANCE Final Result * Hepatitis C Screening (09/08/2001) Pathologist [facility] Hepatitis C Screening abstracted [facility] Provider HEALTH MAINTENANCE Final Result from Last 3 Months or Most Recently Relevant to Health Maintenance Insurance MEDICARE [facility] Care Teams Court Crier Relationship Specialty Start Date End Date Velvet Pittman MD [address] [place] [id number] PCP - General Internal Medicine 06/07/24
--- OUTSIDE RECORDS SUMMARY | 2024-11-11 17:16 | XMS_ITS | Encounter Summary ---
Author Organization [facility] Address [address] [place] [address] Care Team Providers Care Flocculator Operator Name Role Phone Jhonatan Calderon RN Unavailable Velvet Pittman MD Primary Care Provider [phone] Encounter Details Date Type Department Care Team (Late st Contact Info) Description 10/14/2024 Scanned Document C PLUG DRILL OPERATOR SCAN Physical Therapy, Scan Social History Tobacco Use Types Packs/Day Years Used Date Smoking Tobacco: Never Smokeless Tobacco: Never Alcohol Use Standard Drinks/Week Comments Yes 0 (1 standard drink = 0.6 oz pur e alcohol) social [facility] Utilities Answer Date Recorded In the past 12 months has [employer], gas, oil, or water [employer] threatened to shut off services in your [...] place to sleep or slept in a skilled nursing (including now)? No 11/19/2023 Sex and Gender [...] 10:30 AM EDT Office Visit [facility] [id number] [address] [address] Nomi Barreto APRN [address] [address] documented as of this encounter Visit Diagnoses Not on filedocumented in this encounter Care Teams Flocculator Operator Relationship Specialty Start Date End Date Velvet Pittman MD [address] [place] [id number] PCP - General 01/02/24 Jhonatan Calderon RN [address] [place] [id number] Nurse Navigator Surgery, Neurosurgery 11/20/23 documented as of this encounter
--- OUTSIDE RECORDS SUMMARY | 2024-11-11 17:16 | XMS_ITS ---
Author Organization [facility] Address [address] [place] [phone] Care Team Providers Care Marble Worker Name Role Phone Velvet Pittman Primary Care Provider Allergies No Known Allergies REASON FOR VISIT Refills Medications Medication SIG (Take, Route, Frequency, Duration) Notes Start Date End Date Status Sildenafil Citrate 20 MG 3 tablet Orally Once a day for 30 days 07/05/2024 01/01/2025 Active Encounters Encounter Location Date Provider Diagnosis Velvet Pittman MD [address] [place] [address] [place] [phone] 07/05/2024 [facility]man Plan Of Treatment Medication Medication Name Sig Start Date Stop Date Notes Sildenafil Citrate 20 MG 3 tablet Orally Once a day for 30 days 07/05/2024 01/01/2025 Next Appt Details Provider Name:Velvet Pittman , 11/22/2024 09:15:00 AM, [address] [place] [address], [phone], Provider Name:Velvet Pittman , 06/30/2025 11:00:00 AM, [address] [place] [address], [id number], Progress Notes * Josh RAINDOB:1950 (73 yo M)Acc No.[id number]:07/05/2024 Patient:?Josh RAIN :1950???Age:73 Y???Sex:Male Address:[address] [place] [address] [place], [address] * Refills? Start Sildenafil Citrate Tablet, 20 MG, Orally, 30, 3 tablet, Once a day, 30 days, Refills=5 Subjective: * Chief Complaints: * ???Refills * Medical History:? * Surgical History:? * Hospitalization/Major Diagno stic Procedure:? * Medications:? * Allergies:?N.K.D.A.no[Allerg ies Verified] Objective: * Vitals:? Past Vitals:* 07/05/2024 Temp:96.2F, HR:64/min, BP:Si tting Right Arm: 136/80mm Hg, Wt:203lbs, BMI:29.97Index, Ht:5 ft 9 in, Oxygen sat %:96% * 06/20/2024 Temp:96.7F, HR:60/min, Wt:20 5lbs, BMI:30.27Index, Ht:5 ft 9 in, Oxygen sat %:98% * 06/06/2024 BP:Sitting Right Arm: 122/74 mm Hg, Wt:201lbs, BMI:29.68Index, Ht:5 ft 9 in * Physical Examination:? Assessment: Plan: * Treatment: * Procedure Codes:? * true * Date:? Generated for Osvaldo yeung/Pam/Simon on:?11/11/2024 05:15 PM EDT
--- OUTSIDE RECORDS SUMMARY | 2024-11-11 17:16 | XMS_ITS | Encounter Summary ---
Author Organization [facility] Address [address] [place] [address] Care Team Providers Care Side Boss Name Role Phone Jhonatan Calderon RN Unavailable Velvet Pittman MD Primary Care Provider [phone] Encounter Details Date Type Department Care Team (Late st Contact Info) Description 01/04/2024 Scanned Document INPATIENT REHAB [address] [place] [address] Colin Meeks [address] [place], [place] [phone] Social History Tobacco Use Types Packs/Day Years Used Date Smoking Tobacco: Never Assessed [facility] Utilities Answer Date Recorded In the past 12 months has [employer], gas, oil, or water [employer] threatened to shut off services in your [...] place to sleep or slept in a m[facility]p (including now)? No 11/19/2023 Sex and Gender Information Value Date Recorded Sex Assigned at Male 11/18/2023 7:54 PM EDT Legal Sex Male 3:18 PM EDT Gender Identity Male 11/18/2023 7:54 PM EDT Sexual Orientation Heterosexual (straight) 11/17 7:54 PM EDT documented as of this encounter Plan of Treatment Upcoming Encounters Date Type Department Care Team ([facility] Contact Info) Description 12/24/2024 10:30 AM EDT Office Visit [facility] [id number] [address] [address] Nomi Barreto APRN [address] [phone] documented as of this encounter Visit Diagnoses Not on filedocumented in this encounter Care Teams Side Boss Relationship Specialty Start Date End Date Velvet Pittman MD [address] [address] PCP - General 01/02/24 Jhonatan Calderon RN [address] [place] [address] Nurse Navigator Surgery, Neurosurgery 11/20/23 documented as of this encounter
--- OUTSIDE RECORDS SUMMARY | 2024-11-11 17:16 | XMS_ITS | Encounter Summary ---
Author Organization [facility] Address [address] [place] [address] Care Team Providers Care Sales And Merchandising Associate Name Role Phone Jhonatan Calderon RN Unavailable Velvet Pittman MD Primary Care Provider [phone] Encounter Details Date Type Department Care Team (Late st Contact Info) Description 11/11/2024 Emergency [facility] Emergency Department [address] [place] [address] Social History Tobacco Use Types Packs/Day Years Used Date Smoking Tobacco: Never Smokeless Tobacco: Never Alcohol Use Standard Drinks/Week Comments Yes 0 (1 standard drink = 0.6 oz pur e alcohol) social [facility] Utilities Answer Date Recorded In the past 12 months has [employer], [employer], oil, or water [employer] threatened to shut off services in your [...] place to sleep or slept in a prison (including now)? 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 On eliquis Got kcentra On cardene gtt 7.5mg/hr Maddi Ledesma RN 11/11/24 1615 documented in this encounter Plan of Treatment Upcoming Encounters Date Type Department Care Team (Late st Contact Info) Description 12/24/2024 10:30 AM EDT Office Visit [facility] [id number] [address] [place] [phone] Nomi Barreto, SINTERING PRESS OPERATOR 85 [facility] [address] [place] [address] documented as of this encounter Visit Diagnoses Not on filedocumented in this encounter Care Teams Sales And Merchandising Associate Relationship Specialty Start Date End Date Velvet Pittman MD 299 [facility] [address] [place] [address] PCP - General 01/02/24 Jhonatan Calderon, RN 35 [facility] [address] [place] [address] Nurse Navigator Surgery, Neurosurgery 11/20/23 documented as of this encounter
--- OUTSIDE RECORDS SUMMARY | 2024-11-11 17:16 | XMS_ITS ---
Author Organization [facility] Address [address] [place] [phone] Care Team Providers Care Television Cabinet Finisher Name Role Phone [facility] Provider [phone] Allergies No Known Allergies REASON FOR VISIT Refill Medications Medication SIG (Take, Route, Fr equency, Duration) Notes Start Date End Date Status Spironolactone 25 MG 1 tablet Orally Onc e a day for 90 days 06/20/2024 11/07/2024 Active Encounters Encounter Location Date Provider Diagnosis [facility] [address] [facility] [address] [place] [phone] 08/09/2024 [facility] Plan Of Treatment Medication Medication Name Sig Start Date Stop Date Notes Spironolactone 25 MG 1 tablet Orally Onc e a day for 90 days 06/20/2024 11/07/2024 Next Appt Details Provider Name:[facility] , 11/22/2024 09:15:00 AM, [address] [place] [address], [phone], Provider Name:[facility] , 06/30/2025 11:00:00 AM, [address] [place] [address], [phone], Progress Notes * Josh RAINDOB:1950 (73 yo M)Acc No.[id number]:08/09/2024 Patient:?Josh RAIN :1950???Age:73 Y???Sex:Male Address:[address] [place] [address] [place], [address] * Refills? Refill Spironolactone Tablet, 25 MG, Orally, 90 Tablet, 1 tablet, Once a day, 90 days, Refills=0 Subjective: * Chief Complaints: * ???Refill * Medical History:? * Surgical History:? * [...] * Date:? Generated for Osvaldo yeung/Pam/Simon on:?11/11/2024 05:16 PM EDT
--- OUTSIDE RECORDS SUMMARY | 2024-11-11 17:16 | XMS_ITS ---
Author Name [facility] Organization Unknown Results Test Name/Text Value Interpretation Date Range Source Prothrombin time 30.3seconds Above high normal [id number] 10 - 13.5 [facility] INR PPP 2.7 Normal [id number] [facility] Anticoagulant WARFARIN (COUMADIN) Normal [id number] [facility] CRP SerPl-mCnc 3.7mg/dL Above high normal 899616398640 0 - 0.49 [facility] INR PPP 2.1 Normal [id number] [facility] Prothrombin time 24seconds Above high normal [id number] 10 - 13.5 [facility] Anticoagulant WARFARIN (COUMADIN) Normal [id number] [facility] ESR Bld Qn 31MM/HR Above high normal 933843477085 - 20 [facility] Prothrombin time 20.9seconds Above high normal [id number] 10 - 13.5 [facility] INR PPP 1.8 Normal [id number] [facility] Anticoagulant WARFARIN (COUMADIN) Normal [id number] [facility] Vancomycin SerPl-mCnc 17mg/L Normal [id number] [facility] Time of last dose Normal [id number] [facility] CRP SerPl-mCnc 2.3mg/dL Above high normal [id number] 0 - 0.49 [facility] Magnesium SerPl-mCnc 1.6mg/dL Normal [id number] 1.6 - 2.7 [facility] GFR/BSA.pred SerPlBld WLK-LZV-DeSHob 90 Normal [id number] 59 - [facility] ALT SerPl-cCnc 13U/L Normal [id number] 10 - 55 HH CCT Albumin/Glob SerPl 0.9Ratio Below low normal [id number] 1 - 3 [facility] BUN SerPl-mCnc 8mg/dL Normal [id number] 8 - 21 HH CCT Calcium SerPl-mCnc 9mg/dL Normal [id number] 8.7 - 10 .5 [facility] Globulin Ser Calc-mCnc 3.3g/dL Normal [id number] 1.5 - 3.9 [facility] Prot SerPl-mCnc 6.4g/dL Normal [id number] 6.3 - 8.3 H [facility]CT Potassium SerPl-sCnc 3.6mmol/L Normal [id number] 3.4 - 5.3 [facility] CO2 SerPl-sCnc 28mmol/L Normal [id number] 22 - 33 HH CCT AST SerPl-cCnc 28U/L Normal [id number] 10 - 55 HH CCT Creat SerPl-mCnc 0.6mg/dL Normal [id number] 0.5 - 1.3 [facility] Albumin SerPl-mCnc 3.1g/dL Below low normal [id number] 3 .4 - 4.8 [facility] Anion Gap Bld-sCnc 9 Normal [id number] 7 - 17 [facility] Glucose SerPl-mCnc 106mg/dL Above high normal [id number] 65 - 99 [facility] Sodium SerPl-sCnc 138mmol/L Normal [id number] 136 - 145 [facility] BUN/Creat SerPl 13Ratio Normal [id number] 10 - 25 H [facility]CT ALP SerPl-cCnc 103U/L Normal [id number] 45 - 128 HH CCT Bilirub SerPl-mCnc 0.4mg/dL Normal [id number] 0.2 - 1 [facility] Chloride SerPl-sCnc 101mmol/L Normal [id number] 98 - 107 [facility] ESR Bld Qn 38MM/HR Above high normal [id number] - 20 [facility] Prothrombin time 15.9seconds Above high normal [id number] 10 - 13.5 [facility] INR PPP 1.4 Normal [id number] [facility] Anticoagulant WARFARIN (COUMADIN) Normal [id number] [facility] Lymphocytes/leuk NFr Bld Auto 18.9% Normal [id number] H[facility]CT RDW RBC Auto-Rto 15.7% Above high normal [id number] 11.5 - 14.5 [facility]CT Lymphocytes num Bld Auto 0.86Thou/uL Below low normal [id number] 1.5 - 4.5 [facility]CT Neutrophils num Bld Auto 2.62Thou/uL Normal [id number] 2 - 7.5 [facility]CT Basophils/leuk NFr Bld Auto 0.7% Normal [id number] [facility] Platelet num Bld Auto 128Thou/uL Below low normal [id number] 150 - 450 [facility]CT Eosinophil num Bld Auto 0.23Thou/uL Normal [id number] 0 - 0.7 H[facility]CT MCHC RBC Auto-mCnc 32.3g/dL Normal [id number] 30 - 36 [facility] RBC num Bld Auto 2.96Mil/uL Below low normal [id number] 4. 5 - 6.2 [facility]CT MCH RBC Qn Auto 32.8pg Above high normal [id number] 27 - 31 [facility] Hct VFr Bld Auto 30% Below low normal [id number] 39 - 54 [facility]CT Neutrophils/leuk NFr Bld Auto 57.5% Normal [id number] H[facility]CT Monocytes num Bld Auto 0.79Thou/uL Normal [id number] 0.2 - 1.5 [facility]CT Monocytes/leuk NFr Bld Auto 17.4% Normal [id number] H[facility]CT Imm Granulocytes/leuk NFr Bld Auto 0.4% Normal [id number] H[facility]CT Eosinophil/leuk NFr Bld Auto 5.1% Normal [id number] H[facility]CT Basophils num Bld Auto 0.03Thou/uL Normal [id number] 0 - 0.2 HHCCT PMV Bld Auto 10.3fL Normal [id number] 7.5 - 12.[address] WBC num Bld Auto 4.6Thou/uL Normal [id number] 4 - 11 H[facility]CT MCV RBC Auto 101fL Above high normal [id number] 80 - 1 00 HHCCT Hgb Bld-mCnc 9.7g/dL Below low normal [id number] 13 - 17 .7 HHCCT Imm Granulocytes num Bld Auto 0.02Thou/uL Normal [id number] 0 - 0.1 [facility]CT Prothrombin time 14.4seconds Above high normal [id number] 10 - 13.5 [facility] INR PPP 1.3 Normal [id number] H[facility]CT Anticoagulant WARFARIN (COUMADIN) Normal [id number] H[facility]CT Prothrombin time 13seconds Normal [id number] 10 - 13.5 [facility] INR PPP 1.1 Normal [id number] [facility]CT Anticoagulant WARFARIN (COUMADIN) Normal [id number] H[facility]CT Prothrombin time 12.8seconds Normal [id number] 10 - 13. 5 [facility] INR PPP 1.1 Normal [id number] H[facility]CT Anticoagulant WARFARIN (COUMADIN) Normal [id number] [facility] INR PPP 1.1 Normal [id number] H[facility]CT Prothrombin time 12.9seconds Normal [id number] 10 - 13. 5 [facility] Anticoagulant WARFARIN (COUMADIN) Normal [id number] H[facility]CT Vancomycin SerPl-mCnc 18mg/L Normal [id number] H[facility]CT Time of last dose Normal [id number] [facility] INR PPP 1.1 Normal [id number] H[facility]CT Prothrombin time 12.6seconds Normal [id number] 10 - 13. 5 [facility]CT Anticoagulant WARFARIN (COUMADIN), [place] Normal [id number] HHCCT CRP SerPl-mCnc 1.66mg/dL Above high normal [id number] 0 - 0.49 HHCCT ALP SerPl-cCnc 111U/L Normal [id number] 45 - 128 HH CCT Anion Gap Bld-sCnc 9 Normal [id number] 7 - 17 H[facility]CT CO2 SerPl-sCnc 31mmol/L Normal [id number] 22 - 33 HH CCT BUN/Creat SerPl 10Ratio Normal [id number] 10 - 25 H HCCT ALT SerPl-cCnc 17U/L Normal [id number] 10 - 55 HH CCT Sodium SerPl-sCnc 138mmol/L Normal [id number] 136 - 145 H[facility]CT Glucose SerPl-mCnc 95mg/dL Normal [id number] 65 - 99 H[facility]CT Globulin Ser Calc-mCnc 3.4g/dL Normal [id number] 1.5 - 3.9 HHCCT GFR/BSA.pred SerPlBld TOS-HBT-KbXBcr 90 Normal [id number] 59 - HHCCT AST SerPl-cCnc 29U/L Normal [id number] 10 - 55 HH CCT Potassium SerPl-sCnc 3.7mmol/L Normal [id number] 3.4 - 5.3 HHCCT Prot SerPl-mCnc 6.6g/dL Normal [id number] 6.3 - 8.3 H HCCT Creat SerPl-mCnc 0.6mg/dL Normal [id number] 0.5 - 1.3 HHCCT BUN SerPl-mCnc 6mg/dL Below low normal [id number] 8 - 2 1 HHCCT Calcium SerPl-mCnc 9.2mg/dL Normal [id number] 8.7 - 10 .5 HHCCT Albumin/Glob SerPl 0.9Ratio Below low normal [id number] 1 - 3 HHCCT Chloride SerPl-sCnc 98mmol/L Normal [id number] 98 - 107 HHCCT Bilirub SerPl-mCnc 0.6mg/dL Normal [id number] 0.2 - 1 HHCCT Albumin SerPl-mCnc 3.2g/dL Below low normal [id number] 3 .4 - 4.8 HHCCT Magnesium SerPl-mCnc 1.8mg/dL Normal [id number] 1.6 - 2.7 HHCCT ESR Bld Qn 14MM/HR Normal [id number] - 20 [facility]CT Neutrophils num Bld Auto 2.53Thou/uL Normal [id number] 2 - 7.5 HHCCT Imm Granulocytes/leuk NFr Bld Auto 0.2% Normal [id number] HHCCT Hgb Bld-mCnc 9.9g/dL Below low normal [id number] 13 - 17 .7 HHCCT Monocytes num Bld Auto 0.73Thou/uL Normal [id number] 0.2 - 1.5 HHCCT Lymphocytes/leuk NFr Bld Auto 24.1% Normal [id number] HHCCT WBC num Bld Auto 4.6Thou/uL Normal [id number] 4 - 11 HHCCT RBC num Bld Auto 3.15Mil/uL Below low normal [id number] 4. 5 - 6.2 HHCCT Basophils/leuk NFr Bld Auto 0.4% Normal [id number] HHCCT Lymphocytes num Bld Auto 1.11Thou/uL Below low normal [id number] 1.5 - 4.5 HHCCT Neutrophils/leuk NFr Bld Auto 55.1% Normal [id number] HHCCT Monocytes/leuk NFr Bld Auto 15.9% Normal [id number] HHCCT Basophils num Bld Auto 0.02Thou/uL Normal [id number] 0 - 0.2 HHCCT Eosinophil/leuk NFr Bld Auto 4.3% Normal [id number] HHCCT MCHC RBC Auto-mCnc 32.2g/dL Normal [id number] 30 - 36 HHCCT Eosinophil num Bld Auto 0.2Thou/uL Normal [id number] 0 - 0.7 HHCCT MCV RBC Auto 98fL Normal [id number] 80 - 100 HHCC T RDW RBC Auto-Rto 15.2% Above high normal [id number] 11.5 - 14.5 HHCCT Imm Granulocytes num Bld Auto 0.01Thou/uL Normal [id number] 0 - 0.1 HHCCT Hct VFr Bld Auto 30.7% Below low normal [id number] 39 - 54 HHCCT PMV Bld Auto 10.5fL Normal [id number] 7.5 - 12.[address] Platelet num Bld Auto 113Thou/uL Below low normal [id number] 150 - 450 HHCCT MCH RBC Qn Auto 31.4pg Above high normal [id number] 27 - 31 HHCCT CO2 SerPl-sCnc 27mmol/L Normal [id number] 22 - 33 HH CCT Sodium SerPl-sCnc 136mmol/L Normal [id number] 136 - 145 HHCCT Calcium SerPl-mCnc 8.6mg/dL Below low normal [id number] 8 .7 - 10.5 HHCCT Potassium SerPl-sCnc 3.5mmol/L Normal [id number] 3.4 - 5.3 HHCCT Anion Gap Bld-sCnc 10 Normal [id number] 7 - 17 HHCCT GFR/BSA.pred SerPlBld RXF-JOM-PhKRzy 90 Normal [id number] 59 - HHCCT Glucose SerPl-mCnc 125mg/dL Above high normal [id number] 65 - 99 HHCCT BUN/Creat SerPl 12Ratio Normal [id number] 10 - 25 H HCCT BUN SerPl-mCnc 6mg/dL Below low normal [id number] 8 - 2 1 HHCCT Chloride SerPl-sCnc 99mmol/L Normal [id number] 98 - 107 HHCCT Creat SerPl-mCnc 0.5mg/dL Normal [id number] 0.5 - 1.3 HHCCT Magnesium SerPl-mCnc 1.6mg/dL Normal [id number] 1.6 - 2.7 HHCCT PMV Bld Auto 10.2fL Normal [id number] 7.5 - 12.[address] Monocytes/leuk NFr Bld Auto 12.9% Normal [id number] HHCCT Eosinophil num Bld Auto 0.23Thou/uL Normal [id number] 0 - 0.7 HHCCT Lymphocytes/leuk NFr Bld Auto 31% Normal [id number] HHCCT RDW RBC Auto-Rto 15.2% Above high normal [id number] 11.5 - 14.5 HHCCT Imm Granulocytes num Bld Auto 0.02Thou/uL Normal [id number] 0 - 0.1 HHCCT Hct VFr Bld Auto 29.6% Below low normal [id number] 39 - 54 H[facility]CT Platelet num Bld Auto 112Thou/uL Below low normal [id number] 150 - 450 HHCCT WBC num Bld Auto 5Thou/uL Normal [id number] 4 - 11 HHCCT Basophils/leuk NFr Bld Auto 0.8% Normal [id number] HHCCT Neutrophils num Bld Auto 2.5Thou/uL Normal [id number] 2 - 7.5 HHCCT Eosinophil/leuk NFr Bld Auto 4.6% Normal [id number] HHCCT MCV RBC Auto 97fL Normal [id number] 80 - 100 HHCC T MCHC RBC Auto-mCnc 33.1g/dL Normal [id number] 30 - 36 HHCCT Basophils num Bld Auto 0.04Thou/uL Normal [id number] 0 - 0.2 HHCCT Imm Granulocytes/leuk NFr Bld Auto 0.4% Normal [id number] HHCCT Neutrophils/leuk NFr Bld Auto 50.3% Normal [id number] HHCCT Monocytes num Bld Auto 0.64Thou/uL Normal [id number] 0.2 - 1.5 HHCCT RBC num Bld Auto 3.05Mil/uL Below low normal [id number] 4. 5 - 6.2 HHCCT Hgb Bld-mCnc 9.8g/dL Below low normal 13 - 17 .7 HHCCT Lymphocytes num Bld Auto 1.54Thou/uL Normal [id number] 1.5 - 4.5 HHCCT MCH RBC Qn Auto 32.1pg Above high normal 27 - 31 HHCCT GFR/BSA.pred SerPlBld SNJ-ZWX-FlWAhn 90 Normal [id number] 59 - HHCCT BUN SerPl-mCnc 6mg/dL Below low normal 8 - 2 1 HHCCT Chloride SerPl-sCnc 100mmol/L Normal 98 - 107 HHCCT Calcium SerPl-mCnc 8.7mg/dL Normal 8.7 - 10 .5 HHCCT Sodium SerPl-sCnc 138mmol/L Normal 136 - 145 HHCCT BUN/Creat SerPl 10Ratio Normal [id number] 10 - 25 H HCCT CO2 SerPl-sCnc 28mmol/L Normal [id number] 22 - 33 HH CCT Anion Gap Bld-sCnc 10 Normal [id number] 7 - 17 HHCCT Creat SerPl-mCnc 0.6mg/dL Normal [id number] 0.5 - 1.3 HHCCT Glucose SerPl-mCnc 84mg/dL Normal 65 - 99 HHCCT Potassium SerPl-sCnc 3.6mmol/L Normal [id number] 3.4 - 5.3 HHCCT Magnesium SerPl-mCnc 1.5mg/dL Below low normal 1.6 - 2.7 HHCCT Vancomycin SerPl-mCnc 18mg/L Normal [id number] HHCCT Time of last dose Normal [id number] HHCCT WBC num Bld Auto 4.7Thou/uL Normal [id number] 4 - 11 HHCCT Platelet num Bld Auto 108Thou/uL Below low normal [id number] 150 - 450 HHCCT Magnesium SerPl-mCnc 1.6mg/dL Normal [id number] 1.6 - 2.7 HHCCT Potassium SerPl-sCnc 3.7mmol/L Normal 3.4 - 5.3 HHCCT Albumin SerPl-mCnc 3g/dL Below low normal [id number] 3 .4 - 4.8 HHCCT Chloride SerPl-sCnc 102mmol/L Normal 98 - 107 HHCCT Glucose SerPl-mCnc 94mg/dL Normal [id number] 65 - 99 HHCCT Albumin/Glob SerPl 1Ratio Normal 1 - 3 HHCCT CO2 SerPl-sCnc 28mmol/L Normal 22 - 33 HH CCT ALT SerPl-cCnc 19U/L Normal 10 - 55 HH CCT Calcium SerPl-mCnc 8.4mg/dL Below low normal [id number] 8 .7 - 10.5 HHCCT Creat SerPl-mCnc 0.5mg/dL Normal 0.5 - 1.3 HHCCT Prot SerPl-mCnc 6g/dL Below low normal [id number] 6.3 - 8.3 HHCCT Globulin Ser Calc-mCnc 3g/dL Normal 1.5 - 3.9 HHCCT Anion Gap Bld-sCnc 9 Normal [id number] 7 - 17 HHCCT BUN/Creat SerPl 10Ratio Normal [id number] 10 - 25 H HCCT GFR/BSA.pred SerPlBld LCB-ZTX-QoVDbw 90 Normal 59 - HHCCT Sodium SerPl-sCnc 139mmol/L Normal [id number] 136 - 145 HHCCT AST SerPl-cCnc 32U/L Normal 10 - 55 HH CCT ALP SerPl-cCnc 115U/L Normal 45 - 128 HH CCT BUN SerPl-mCnc 5mg/dL Below low normal [id number] 8 - 2 1 HHCCT Potassium SerPl-sCnc 3.1mmol/L Below low normal 3.4 - 5.3 HHCCT Bilirub SerPl-mCnc 0.5mg/dL Normal [id number] 0.2 - 1 HHCCT CRP SerPl-mCnc 1mg/dL Above high normal [id number] 0 - 0.49 HHCCT Magnesium SerPl-mCnc 1.5mg/dL Below low normal [id number] 1.6 - 2.7 HHCCT ESR Bld Qn 26MM/HR Above high normal 773331814272 - 20 H[facility]CT Platelet num Bld Auto 115Thou/uL Below low normal [id number] 150 - 450 HHCCT Basophils/leuk NFr Bld Auto 1% Normal [id number] HHCCT WBC num Bld Auto 4.8Thou/uL Normal [id number] 4 - 11 HHCCT Imm Granulocytes/leuk NFr Bld Auto 0.2% Normal [id number] HHCCT Lymphocytes/leuk NFr Bld Auto 27.3% Normal [id number] HHCCT RBC num Bld Auto 2.97Mil/uL Below low normal [id number] 4. 5 - 6.2 HHCCT MCH RBC Qn Auto 32.7pg Above high normal [id number] 27 - 31 HHCCT Imm Granulocytes num Bld Auto 0.01Thou/uL Normal [id number] 0 - 0.1 HHCCT Lymphocytes num Bld Auto 1.3Thou/uL Below low normal [id number] 1.5 - 4.5 HHCCT Hgb Bld-mCnc 9.7g/dL Below low normal [id number] 13 - 17 .7 HHCCT Eosinophil/leuk NFr Bld Auto 3.8% Normal [id number] HHCCT MCV RBC Auto 97fL Normal [id number] 80 - 100 HHCC T Monocytes/leuk NFr Bld Auto 13% Normal [id number] HHCCT PMV Bld Auto 10fL Normal [id number] 7.5 - 12.[address] Eosinophil num Bld Auto 0.18Thou/uL Normal [id number] 0 - 0.7 HHCCT Hct VFr Bld Auto 28.8% Below low normal [id number] 39 - 54 HHCCT Neutrophils/leuk NFr Bld Auto 54.7% Normal [id number] HHCCT RDW RBC Auto-Rto 14.8% Above high normal [id number] 11.5 - 14.5 HHCCT MCHC RBC Auto-mCnc 33.7g/dL Normal [id number] 30 - 36 HHCCT Neutrophils num Bld Auto 2.61Thou/uL Normal [id number] 2 - 7.5 HHCCT Basophils num Bld Auto 0.05Thou/uL Normal [id number] 0 - 0.2 HHCCT Monocytes num Bld Auto 0.62Thou/uL Normal [id number] 0.2 - 1.5 HHCCT Vancomycin SerPl-mCnc 17mg/L Normal [id number] HHCCT Time of last dose Normal [id number] HHCCT Potassium SerPl-sCnc 4.2mmol/L Normal [id number] 3.4 - 5.3 HHCCT Potassium SerPl-sCnc 3.1mmol/L Below low normal [id number] 3.4 - 5.3 HHCCT Chloride SerPl-sCnc 98mmol/L Normal [id number] 98 - 107 HHCCT CO2 SerPl-sCnc 25mmol/L Normal [id number] 22 - 33 HH CCT Glucose SerPl-mCnc 87mg/dL Normal [id number] 65 - 99 HHCCT GFR/BSA.pred SerPlBld IJJ-QCJ-KcTJuu 90 Normal [id number] 59 - HHCCT Creat SerPl-mCnc 0.6mg/dL Normal [id number] 0.5 - 1.3 HHCCT Calcium SerPl-mCnc 8.4mg/dL Below low normal [id number] 8 .7 - 10.5 HHCCT Sodium SerPl-sCnc 133mmol/L Below low normal 311053115179 13 6 - 145 HHCCT BUN SerPl-mCnc 6mg/dL Below low normal [id number] 8 - 2 1 HHCCT Potassium SerPl-sCnc 3.3mmol/L Below low normal [id number] 3.4 - 5.3 HHCCT Anion Gap Bld-sCnc 10 Normal [id number] 7 - 17 HHCCT BUN/Creat SerPl 10Ratio Normal [id number] 10 - 25 H HCCT Osmolality Ur 393mOsm/Kg Normal [id number] 40 - 1400 HH CCT Sodium Ur-sCnc 117mmol/L Normal HH CCT Osmolality SerPl 273mOsm/Kg Below low normal 753954987251 28 5 - 295 HHCCT Prot SerPl-mCnc 7.4g/dL Normal 6.3 - 8.3 H HCCT Glucose SerPl-mCnc 125mg/dL Above high normal [id number] 65 - 99 HHCCT ALT SerPl-cCnc 28U/L Normal 10 - 55 HH CCT Potassium SerPl-sCnc 3.9mmol/L Normal 3.4 - 5.3 HHCCT Chloride SerPl-sCnc 93mmol/L Below low normal [id number] 98 - 107 HHCCT Creat SerPl-mCnc 0.6mg/dL Normal 0.5 - 1.3 HHCCT Sodium SerPl-sCnc 129mmol/L Below low normal 862870029066 13 6 - 145 HHCCT AST SerPl-cCnc 33U/L Normal 10 - 55 HH CCT ALP SerPl-cCnc 129U/L Above high normal 481506572647 45 - 128 HHCCT BUN SerPl-mCnc 7mg/dL Below low normal [id number] 8 - 2 1 HHCCT Anion Gap Bld-sCnc 18 Above high normal 722413735173 7 - 17 HHCCT Calcium SerPl-mCnc 9.3mg/dL Normal 8.7 - 10 .5 HHCCT GFR/BSA.pred SerPlBld PSL-OYT-ExILly 90 Normal [id number] 59 - HHCCT Albumin/Glob SerPl 0.9Ratio Below low normal [id number] 1 - 3 HHCCT CO2 SerPl-sCnc 18mmol/L Below low normal [id number] 22 - 33 HHCCT Bilirub SerPl-mCnc 0.5mg/dL Normal [id number] 0.2 - 1 HHCCT Globulin Ser Calc-mCnc 4g/dL Above high normal [id number] 1.5 - 3.9 HHCCT Albumin SerPl-mCnc 3.4g/dL Normal [id number] 3.4 - 4. 8 HHCCT BUN/Creat SerPl 12Ratio Normal [id number] 10 - 25 H HCCT Magnesium SerPl-mCnc 1.6mg/dL Normal 1.6 - 2.7 HHCCT CRP SerPl-mCnc 2.6mg/dL Above high normal [id number] 0 - 0.49 HHCCT Vancomycin SerPl-mCnc 25mg/L Normal [id number] CCT Time of last dose Normal 288943475263 CCT ESR Bld Qn 57MM/HR Above high normal 592278503819 - 20 [facility]CT Eosinophil/leuk NFr Bld Auto 1.4% Normal [facility] Platelet num Bld Auto 299Thou/uL Normal [id number] 150 - 450 HHCCT RBC num Bld Auto 3.35Mil/uL Below low normal 543585252543 4. 5 - 6.2 HHCCT Hgb Bld-mCnc 10.8g/dL Below low normal 373084887837 13 - 17 .7 HHCCT PMV Bld Auto 9.9fL Normal [id number] 7.5 - 12.[address] Monocytes num Bld Auto 1.22Thou/uL Normal [id number] 0.2 - 1.5 HHCCT MCV RBC Auto 96fL Normal 495239011208 80 - 100 [facility] T Basophils/leuk NFr Bld Auto 0.6% Normal [facility] Eosinophil num Bld Auto 0.14Thou/uL Normal 861861270487 0 - 0.7 HHCCT RDW RBC Auto-Rto 14.3% Normal [id number] 11.5 - 14.5 HHCCT MCH RBC Qn Auto 32.2pg Above high normal [id number] 27 - 31 HHCCT Neutrophils/leuk NFr Bld Auto 60.1% Normal CCT Monocytes/leuk NFr Bld Auto 12.2% Normal [id number] CCT Lymphocytes num Bld Auto 2.53Thou/uL Normal 1.5 - 4.5 HHCCT WBC num Bld Auto 10Thou/uL Normal [id number] 4 - 11 HHCCT MCHC RBC Auto-mCnc 33.5g/dL Normal 976665186225 30 - 36 HHCCT Hct VFr Bld Auto 32.2% Below low normal 511343935610 39 - 54 HHCCT Lymphocytes/leuk NFr Bld Auto 25.2% Normal HHCCT Neutrophils num Bld Auto 6.03Thou/uL Normal [id number] 2 - 7.5 HHCCT Basophils num Bld Auto 0.06Thou/uL Normal [id number] 0 - 0.2 HHCCT Imm Granulocytes/leuk NFr Bld Auto 0.5% Normal HHCCT Imm Granulocytes num Bld Auto 0.05Thou/uL Normal [id number] 0 - 0.1 HHCCT Vancomycin SerPl-mCnc 27mg/L Normal [id number] CCT Time of last dose Normal [id number] HHCCT Potassium SerPl-sCnc 3.4mmol/L Normal [id number] 3.4 - 5.3 HHCCT BUN/Creat SerPl 12Ratio Normal [id number] 10 - 25 H HCCT Anion Gap Bld-sCnc 8 Normal [id number] 7 - 17 HHCCT Creat SerPl-mCnc 0.6mg/dL Normal [id number] 0.5 - 1.3 HHCCT Calcium SerPl-mCnc 8.5mg/dL Below low normal [id number] 8 .7 - 10.5 HHCCT CO2 SerPl-sCnc 26mmol/L Normal [id number] 22 - 33 HH CCT GFR/BSA.pred SerPlBld YFC-EHF-ZuEMyh 90 Normal [id number] 59 - HHCCT Sodium SerPl-sCnc 133mmol/L Below low normal 818611821029 13 6 - 145 HHCCT Glucose SerPl-mCnc 101mg/dL Above high normal 716072040165 65 - 99 HHCCT BUN SerPl-mCnc 7mg/dL Below low normal 649642838606 8 - 2 1 HHCCT Chloride SerPl-sCnc 99mmol/L Normal [id number] 98 - 107 HHCCT ESR Bld Qn 47MM/HR Above high normal 981905255202 - 20 HHCCT CRP SerPl-mCnc 4.6mg/dL Above high normal [id number] 0 - 0.49 HHCCT Vancomycin SerPl-mCnc 12mg/L Normal [id number] HHCCT Time of last dose Normal 437082430270 HHCCT 25(OH)D3 SerPl-mCnc 28ng/mL Below low normal 750122768117 30 - 100 HHCCT Folate SerPl-mCnc 11.8ng/mL Normal 7.2 - HHCCT Magnesium SerPl-mCnc 1.6mg/dL Normal 1.6 - 2.7 HHCCT Vit B12 SerPl-mCnc 329pg/mL Normal 243 - 89 4 HHCCT Albumin SerPl-mCnc 2.8g/dL Below low normal 3 .4 - 4.8 HHCCT ALP SerPl-cCnc 92U/L Normal 45 - 128 HH CCT Potassium SerPl-sCnc 3.3mmol/L Below low normal 3.4 - 5.3 HHCCT Calcium SerPl-mCnc 8.4mg/dL Below low normal 8 .7 - 10.5 HHCCT Creat SerPl-mCnc 0.5mg/dL Normal 0.5 - 1.3 HHCCT Bilirub SerPl-mCnc 0.4mg/dL Normal 0.2 - 1 HHCCT Albumin/Glob SerPl 0.8Ratio Below low normal 1 - 3 HHCCT Globulin Ser Calc-mCnc 3.5g/dL Normal 1.5 - 3.9 HHCCT CO2 SerPl-sCnc 26mmol/L Normal 22 - 33 HH CCT AST SerPl-cCnc 34U/L Normal 10 - 55 HH CCT GFR/BSA.pred SerPlBld OOF-VUZ-TbPUum 90 Normal 59 - HHCCT Chloride SerPl-sCnc 95mmol/L Below low normal 98 - 107 HHCCT ALT SerPl-cCnc 29U/L Normal 10 - 55 HH CCT Glucose SerPl-mCnc 94mg/dL Normal 65 - 99 HHCCT BUN/Creat SerPl 18Ratio Normal 10 - 25 H HCCT Sodium SerPl-sCnc 130mmol/L Below low normal 13 6 - 145 HHCCT Anion Gap Bld-sCnc 9 Normal 7 - 17 HHCCT BUN SerPl-mCnc 9mg/dL Normal 8 - 21 HH CCT Prot SerPl-mCnc 6.3g/dL Normal 6.3 - 8.3 H HCCT Lymphocytes num Bld Auto 1.22Thou/uL Below low normal [id number] 1.5 - 4.5 H[facility]CT PMV Bld Auto 10fL Normal [id number] 7.5 - 12.[address] Hgb Bld-mCnc 9.2g/dL Below low normal [id number] 13 - 17 .7 H[facility]CT MCHC RBC Auto-mCnc 33.3g/dL Normal [id number] 30 - 36 [facility] Lymphocytes/leuk NFr Bld Auto 17.6% Normal [id number] H[facility]CT Eosinophil num Bld Auto 0.14Thou/uL Normal [id number] 0 - 0.7 [facility] Monocytes/leuk NFr Bld Auto 13.4% Normal [id number] HHCCT MCH RBC Qn Auto 31.9pg Above high normal [id number] 27 - 31 H[facility]CT Basophils num Bld Auto 0.04Thou/uL Normal [id number] 0 - 0.2 H[facility]CT Imm Granulocytes num Bld Auto 0.05Thou/uL Normal [id number] 0 - 0.1 H[facility]CT Hct VFr Bld Auto 27.6% Below low normal [id number] 39 - 54 [facility] Monocytes num Bld Auto 0.93Thou/uL Normal [id number] 0.2 - 1.5 [facility]CT Neutrophils/leuk NFr Bld Auto 65.7% Normal [id number] H[facility]CT RBC num Bld Auto 2.88Mil/uL Below low normal [id number] 4. 5 - 6.2 [facility]CT RDW RBC Auto-Rto 14.4% Normal [id number] 11.5 - 14.5 [facility]CT Eosinophil/leuk NFr Bld Auto 2% Normal [id number] H[facility]CT Imm Granulocytes/leuk NFr Bld Auto 0.7% Normal [id number] H[facility]CT MCV RBC Auto 96fL Normal [id number] 80 - 100 HH[facility] T Basophils/leuk NFr Bld Auto 0.6% Normal [id number] H[facility]CT Neutrophils num Bld Auto 4.55Thou/uL Normal [id number] 2 - 7.5 [facility] WBC num Bld Auto 6.9Thou/uL Normal [id number] 4 - 11 [facility] Platelet num Bld Auto 196Thou/uL Normal [id number] 150 - 450 [facility] Lymphocytes/leuk NFr Bld Auto 14.3% Normal [id number] HHCCT Hct VFr Bld Auto 26.9% Below low normal [id number] 39 - 54 [facility] Monocytes/leuk NFr Bld Auto 11.6% Normal [id number] H[facility]CT RDW RBC Auto-Rto 14.7% Above high normal [id number] 11.5 - 14.5 H[facility]CT Neutrophils num Bld Auto 5.88Thou/uL Normal [id number] 2 - 7.5 [facility] WBC num Bld Auto 8.3Thou/uL Normal [id number] 4 - 11 [facility] Neutrophils/leuk NFr Bld Auto 70.5% Normal [id number] H[facility]CT Eosinophil/leuk NFr Bld Auto 2.4% Normal [id number] H[facility]CT Platelet num Bld Auto 200Thou/uL Normal [id number] 150 - 450 [facility] Monocytes num Bld Auto 0.97Thou/uL Normal [id number] 0.2 - 1.5 [facility]CT PMV Bld Auto 10.1fL Normal [id number] 7.5 - 12.[address] Basophils num Bld Auto 0.05Thou/uL Normal [id number] 0 - 0.2 [facility] Imm Granulocytes num Bld Auto 0.05Thou/uL Normal [id number] 0 - 0.1 [facility] Basophils/leuk NFr Bld Auto 0.6% Normal [id number] H[facility]CT Eosinophil num Bld Auto 0.2Thou/uL Normal 0 - 0.7 [facility]CT Imm Granulocytes/leuk NFr Bld Auto 0.6% Normal HHCCT MCV RBC Auto 94fL Normal 80 - 100 [facility] T MCHC RBC Auto-mCnc 33.1g/dL Normal 30 - 36 H[facility]CT Lymphocytes num Bld Auto 1.19Thou/uL Below low normal 1.5 - 4.5 H[facility]CT Hgb Bld-mCnc 8.9g/dL Below low normal 13 - 17 .7 H[facility]CT RBC num Bld Auto 2.86Mil/uL Below low normal 4. 5 - 6.2 H[facility]CT MCH RBC Qn Auto 31.1pg Above high normal 27 - 31 H[facility]CT Vancomycin SerPl-mCnc 16mg/L Normal HHCCT Time of last dose Normal HHCCT Creat SerPl-mCnc 0.6mg/dL Normal 0.5 - 1.3 HHCCT GFR/BSA.pred SerPlBld SNV-GQN-XyBGnr 90 Normal 59 - HHCCT Eosinophil/leuk NFr Bld Auto 1.5% Normal HHCCT PMV Bld Auto 10.1fL Normal 7.5 - 12.[address] Neutrophils num Bld Auto 5.8Thou/uL Normal 2 - 7.5 [facility] Platelet num Bld Auto 194Thou/uL Normal 150 - 450 H[facility]CT Monocytes num Bld Auto 1.06Thou/uL Normal 0.2 - 1.5 HHCCT Hgb Bld-mCnc 8.6g/dL Below low normal 13 - 17 .7 H[facility]CT RDW RBC Auto-Rto 14.6% Above high normal 11.5 - 14.5 HHCCT RBC num Bld Auto 2.77Mil/uL Below low normal 4. 5 - 6.2 H[facility]CT Lymphocytes num Bld Auto 1.16Thou/uL Below low normal 1.5 - 4.5 HHCCT Hct VFr Bld Auto 26.5% Below low normal 39 - 54 H[facility]CT Basophils num Bld Auto 0.04Thou/uL Normal 0 - 0.2 H[facility]CT Imm Granulocytes/leuk NFr Bld Auto 0.5% Normal HHCCT MCHC RBC Auto-mCnc 32.5g/dL Normal 30 - 36 H[facility]CT Eosinophil num Bld Auto 0.12Thou/uL Normal 0 - 0.7 H[facility]CT Lymphocytes/leuk NFr Bld Auto 14.1% Normal HHCCT WBC num Bld Auto 8.2Thou/uL Normal 4 - 11 H[facility]CT Imm Granulocytes num Bld Auto 0.04Thou/uL Normal 0 - 0.1 H[facility]CT Neutrophils/leuk NFr Bld Auto 70.5% Normal H[facility]CT MCH RBC Qn Auto 31pg Normal 27 - 31 H [facility] Basophils/leuk NFr Bld Auto 0.5% Normal HHCCT MCV RBC Auto 96fL Normal 80 - 100 [facility] T Monocytes/leuk NFr Bld Auto 12.9% Normal HHCCT Hct VFr Bld Auto 24.7% Below low normal 39 - 54 H[facility]CT Hgb Bld-mCnc 8.4g/dL Below low normal 13 - 17 .7 HHCCT MCV RBC Auto 97fL Normal 80 - 100 [facility] T RBC num Bld Auto 1.85Mil/uL Below low normal [id number] 4. 5 - 6.2 HHCCT Hgb Bld-mCnc 5.9g/dL Below low normal 13 - 17 .7 HHCCT RDW RBC Auto-Rto 14.2% Normal 11.5 - 14.5 H[facility]CT MCHC RBC Auto-mCnc 32.8g/dL Normal 30 - 36 H[facility]CT WBC num Bld Auto 7Thou/uL Normal [id number] 4 - 11 [facility] Platelet num Bld Auto 139Thou/uL Below low normal [id number] 150 - 450 H[facility]CT Hct VFr Bld Auto 18% Critically low 372890222097 39 - 54 H[facility]CT PMV Bld Auto 10.2fL Normal [id number] 7.5 - 12.[address] MCH RBC Qn Auto 31.9pg Above high normal [id number] 27 - 31 H[facility]CT Hgb Bld-mCnc 7.4g/dL Below low normal [id number] 13 - 17 .7 HHCCT MCHC RBC Auto-mCnc 33.5g/dL Normal [id number] 30 - 36 H[facility]CT WBC num Bld Auto 12.1Thou/uL Above high normal [id number] 4 - 11 H[facility]CT MCV RBC Auto 95fL Normal [id number] 80 - 100 [facility] T PMV Bld Auto 10.2fL Normal [id number] 7.5 - 12.[address] MCH RBC Qn Auto 31.9pg Above high normal [id number] 27 - 31 HHCCT Hct VFr Bld Auto 22.1% Below low normal [id number] 39 - 54 [facility] Platelet num Bld Auto 207Thou/uL Normal [id number] 150 - 450 [facility]CT RDW RBC Auto-Rto 14.2% Normal [id number] 11.5 - 14.5 HHCCT RBC num Bld Auto 2.32Mil/uL Below low normal [id number] 4. 5 - 6.2 HHCCT Comment Abnormal 107922422957 - HHCCT Comment Abnormal 429350459657 - HHCCT POC Glucose 115mg/dL Above high normal [id number] 65 - 99 HHCCT Calcium SerPl-mCnc 8.2mg/dL Below low normal [id number] 8 .7 - 10.5 HHCCT Sodium SerPl-sCnc 136mmol/L Normal [id number] 136 - 145 HHCCT BUN SerPl-mCnc 14mg/dL Normal [id number] 8 - 21 HH CCT CO2 SerPl-sCnc 27mmol/L Normal [id number] 22 - 33 HH CCT BUN/Creat SerPl 23Ratio Normal [id number] 10 - 25 H HCCT Creat SerPl-mCnc 0.6mg/dL Normal [id number] 0.5 - 1.3 HHCCT Potassium SerPl-sCnc 3.7mmol/L Normal [id number] 3.4 - 5.3 HHCCT GFR/BSA.pred SerPlBld TDG-IBD-YmRBkv 90 Normal [id number] 59 - HHCCT Anion Gap Bld-sCnc 7 Normal [id number] 7 - 17 HHCCT Glucose SerPl-mCnc 115mg/dL Above high normal 827029463097 65 - 99 HHCCT Chloride SerPl-sCnc 102mmol/L Normal [id number] 98 - 107 HHCCT RDW RBC Auto-Rto 14.1% Normal [id number] 11.5 - 14.5 HHCCT Platelet num Bld Auto 129Thou/uL Below low normal [id number] 150 - 450 H[facility]CT MCHC RBC Auto-mCnc 33.8g/dL Normal [id number] 30 - 36 HHCCT MCV RBC Auto 96fL Normal [id number] 80 - 100 [facility] T MCH RBC Qn Auto 32.3pg Above high normal [id number] 27 - 31 HHCCT PMV Bld Auto 10.6fL Normal [id number] 7.5 - 12.[address] WBC num Bld Auto 9.7Thou/uL Normal [id number] 4 - 11 H[facility]CT RBC num Bld Auto 2.23Mil/uL Below low normal [id number] 4. 5 - 6.2 HHCCT Hct VFr Bld Auto 21.3% Below low normal [id number] 39 - 54 HHCCT Hgb Bld-mCnc 7.2g/dL Below low normal 541600574057 13 - 17 .7 HHCCT ESR Bld Qn 38MM/HR Above high normal 434094392098 - 20 HHCCT CRP SerPl-mCnc 13.21mg/dL Above high normal 653938530779 0 - 0.49 HHCCT Creat SerPl-mCnc 0.5mg/dL Normal [id number] 0.5 - 1.3 HHCCT Anion Gap Bld-sCnc 7 Normal [id number] 7 - 17 HHCCT GFR/BSA.pred SerPlBld SQU-DSF-MlZRoe 90 Normal [id number] 59 - HHCCT Calcium SerPl-mCnc 8.6mg/dL Below low normal [id number] 8 .7 - 10.5 HHCCT Chloride SerPl-sCnc 101mmol/L Normal [id number] 98 - 107 HHCCT CO2 SerPl-sCnc 26mmol/L Normal [id number] 22 - 33 HH CCT BUN SerPl-mCnc 14mg/dL Normal [id number] 8 - 21 HH CCT BUN/Creat SerPl 28Ratio Above high normal [id number] 10 - 25 HHCCT Potassium SerPl-sCnc 3.7mmol/L Normal [id number] 3.4 - 5.3 HHCCT Sodium SerPl-sCnc 134mmol/L Below low normal 651032535872 13 6 - 145 HHCCT Glucose SerPl-mCnc 112mg/dL Above high normal [id number] 65 - 99 HHCCT PMV Bld Auto 10.8fL Normal [id number] 7.5 - 12.[address] Hct VFr Bld Auto 22.4% Below low normal [id number] 39 - 54 HHCCT Platelet num Bld Auto 122Thou/uL Below low normal [id number] 150 - 450 HHCCT RDW RBC Auto-Rto 14.2% Normal [id number] 11.5 - 14.5 HHCCT WBC num Bld Auto 10.7Thou/uL Normal [id number] 4 - 11 HHCCT Hgb Bld-mCnc 7.5g/dL Below low normal [id number] 13 - 17 .7 HHCCT RBC num Bld Auto 2.35Mil/uL Below low normal [id number] 4. 5 - 6.2 HHCCT MCV RBC Auto 95fL Normal [id number] 80 - 100 [facility] T MCH RBC Qn Auto 31.9pg Above high normal [id number] 27 - 31 HHCCT MCHC RBC Auto-mCnc 33.5g/dL Normal [id number] 30 - 36 HHCCT Normocytes Normal 261241435335 HHCCT Normochromic Bld Ql Smear Normal [id number] HHCCT Folate SerPl-mCnc 10.9ng/mL Normal [id number] 7.2 - HHCCT Sodium SerPl-sCnc 134mmol/L Below low normal 135792225663 13 6 - 145 HHCCT Magnesium SerPl-mCnc 1.7mg/dL Normal [id number] 1.6 - 2.7 HHCCT PMV Bld Auto 10.8fL Normal [id number] 7.5 - 12.[address] Platelet num Bld Auto 136Thou/uL Below low normal [id number] 150 - 450 HHCCT Imm Granulocytes num Bld Auto 0.1Thou/uL Normal [id number] 0 - 0.1 HHCCT WBC num Bld Auto 12.8Thou/uL Above high normal 855768430596 4 - 11 HHCCT Basophils/leuk NFr Bld Auto 0.3% Normal [id number] HHCCT MCH RBC Qn Auto 32.3pg Above high normal [id number] 27 - 31 HHCCT Imm Granulocytes/leuk NFr Bld Auto 0.8% Normal [id number] HHCCT Neutrophils num Bld Auto 9.83Thou/uL Above high normal [id number] 2 - 7.5 HHCCT Monocytes num Bld Auto 1.35Thou/uL Normal [id number] 0.2 - 1.5 HHCCT MCHC RBC Auto-mCnc 33.8g/dL Normal [id number] 30 - 36 HHCCT RDW RBC Auto-Rto 14.3% Normal [id number] 11.5 - 14.5 HHCCT Basophils num Bld Auto 0.04Thou/uL Normal [id number] 0 - 0.2 HHCCT Eosinophil num Bld Auto 0.07Thou/uL Normal [id number] 0 - 0.7 HHCCT Hgb Bld-mCnc 7.6g/dL Below low normal [id number] 13 - 17 .7 HHCCT RBC num Bld Auto 2.35Mil/uL Below low normal [id number] 4. 5 - 6.2 HHCCT Neutrophils/leuk NFr Bld Auto 76.7% Normal 004809661414 HHCCT Monocytes/leuk NFr Bld Auto 10.5% Normal [id number] HHCCT Lymphocytes num Bld Auto 1.44Thou/uL Below low normal [id number] 1.5 - 4.5 HHCCT Eosinophil/leuk NFr Bld Auto 0.5% Normal 506150851342 HHCCT Hct VFr Bld Auto 22.5% Below low normal [id number] 39 - 54 HHCCT MCV RBC Auto 96fL Normal [id number] 80 - 100 [facility] T Lymphocytes/leuk NFr Bld Auto 11.2% Normal [id number] HHCCT INR PPP 1.4 Normal [id number] HHCCT Prothrombin time 15.7seconds Above high normal [id number] 10 - 13.5 HHCCT Anticoagulant OTHER AGENT OR UNKNOWN Normal [id number] HHCCT Ferritin SerPl-mCnc 944ug/L Above high normal 589098715904 30 - 400 HHCCT LDH SerPl L to P-cCnc 296U/L Above high normal [id number] 120 - 260 HHCCT Iron Satn MFr SerPl 11% Below low normal [id number] 20 - 50 HHCCT TIBC SerPl-mCnc 136ug/dL Normal [id number] 100 - 400 H HCCT Iron SerPl-mCnc 15ug/dL Below low normal [id number] 53 - 167 HHCCT UIBC SerPl-mCnc 121ug/dL Normal [id number] 112 - 346 H HCCT Haptoglob SerPl-mCnc 158mg/dL Normal [id number] 30 - 200 HHCCT Vit B12 SerPl-mCnc 231pg/mL Below low normal 155932058942 2 43 - 894 HHCCT Immature Reticulocyte Fraction 9.8% Normal [id number] 2.3 - 15.9 HHCCT Retics num Auto 67.6Thou/uL Normal [id number] 30 - 100 HHCCT Reticulocyte production index 1.4% Normal [id number] 1 - 2 HHCCT Hgb Retic Qn Auto 33.4pg Normal [id number] 28 - 35 HHCCT Retics/100 RBC NFr Auto 3% Above high normal [id number] 0.7 - 2 HHCCT CO2 SerPl-sCnc 27mmol/L Normal [id number] 22 - 33 HH CCT Chloride SerPl-sCnc 102mmol/L Normal [id number] 98 - 107 HHCCT Creat SerPl-mCnc 0.6mg/dL Normal [id number] 0.5 - 1.3 HHCCT BUN/Creat SerPl 22Ratio Normal [id number] 10 - 25 H HCCT Potassium SerPl-sCnc 3.9mmol/L Normal [id number] 3.4 - 5.3 HHCCT GFR/BSA.pred SerPlBld WWE-HHG-ZcFMtp 90 Normal [id number] 59 - HHCCT Sodium SerPl-sCnc 133mmol/L Below low normal 071768565240 13 6 - 145 HHCCT Calcium SerPl-mCnc 8.3mg/dL Below low normal [id number] 8 .7 - 10.5 HHCCT Glucose SerPl-mCnc 135mg/dL Above high normal [id number] 65 - 99 HHCCT Anion Gap Bld-sCnc 4 Below low normal [id number] 7 - 17 HHCCT BUN SerPl-mCnc 13mg/dL Normal [id number] 8 - 21 HH CCT Phosphate SerPl-mCnc 2.6mg/dL Below low normal [id number] 2.7 - 4.5 HHCCT Magnesium SerPl-mCnc 1.8mg/dL Normal [id number] 1.6 - 2.7 HHCCT WBC num Bld Auto 12.1Thou/uL Above high normal [id number] 4 - 11 HHCCT MCHC RBC Auto-mCnc 33.9g/dL Normal [id number] 30 - 36 HHCCT RBC num Bld Auto 2.31Mil/uL Below low normal [id number] 4. 5 - 6.2 HHCCT MCV RBC Auto 94fL Normal [id number] 80 - 100 [facility] T Hct VFr Bld Auto 21.8% Below low normal [id number] 39 - 54 HHCCT Platelet num Bld Auto 116Thou/uL Below low normal [id number] 150 - 450 HHCCT Hgb Bld-mCnc 7.4g/dL Below low normal [id number] 13 - 17 .7 HHCCT RDW RBC Auto-Rto 14% Normal [id number] 11.5 - 14.5 HHCCT MCH RBC Qn Auto 32pg Above high normal [id number] 27 - 31 HHCCT PMV Bld Auto 10.4fL Normal [id number] 7.5 - 12.[address] POC Glucose 128mg/dL Above high normal [id number] 65 - 99 HHCCT POC Glucose 183mg/dL Above high normal [id number] 65 - 99 HHCCT RBC num Bld Auto 2.89Mil/uL Below low normal [id number] 4. 5 - 6.2 HHCCT RDW RBC Auto-Rto 13.9% Normal [id number] 11.5 - 14.5 HHCCT Hgb Bld-mCnc 9.2g/dL Below low normal [id number] 13 - 17 .7 HHCCT MCV RBC Auto 95fL Normal [id number] 80 - 100 [facility] T Platelet num Bld Auto 190Thou/uL Normal [id number] 150 - 450 HHCCT MCH RBC Qn Auto 31.8pg Above high normal [id number] 27 - 31 HHCCT Hct VFr Bld Auto 27.3% Below low normal [id number] 39 - 54 HHCCT WBC num Bld Auto 15.7Thou/uL Above high normal [id number] 4 - 11 HHCCT MCHC RBC Auto-mCnc 33.7g/dL Normal [id number] 30 - 36 HHCCT PMV Bld Auto 10.3fL Normal [id number] 7.5 - 12.[address] Vancomycin SerPl-mCnc 10mg/L Normal [id number] HHCCT Time of last dose Normal [id number] HHCCT CO2 SerPl-sCnc 24mmol/L Normal [id number] 22 - 33 HH CCT Sodium SerPl-sCnc 137mmol/L Normal [id number] 136 - 145 HHCCT GFR/BSA.pred SerPlBld UGR-XIG-IqDTnp 90 Normal [id number] 59 - HHCCT Glucose SerPl-mCnc 159mg/dL Above high normal [id number] 65 - 99 HHCCT Creat SerPl-mCnc 0.6mg/dL Normal [id number] 0.5 - 1.3 HHCCT Anion Gap Bld-sCnc 8 Normal [id number] 7 - 17 HHCCT BUN/Creat SerPl 18Ratio Normal [id number] 10 - 25 H HCCT BUN SerPl-mCnc 11mg/dL Normal [id number] 8 - 21 HH CCT Calcium SerPl-mCnc 8mg/dL Below low normal [id number] 8 .7 - 10.5 HHCCT Potassium SerPl-sCnc 4.3mmol/L Normal [id number] 3.4 - 5.3 HHCCT Chloride SerPl-sCnc 105mmol/L Normal [id number] 98 - 107 HHCCT Phosphate SerPl-mCnc 3.1mg/dL Normal [id number] 2.7 - 4.5 HHCCT Magnesium SerPl-mCnc 1.5mg/dL Below low normal [id number] 1.6 - 2.7 HHCCT Ca-I SerPl-mCnc 1.13mmol/L Below low normal [id number] 1 .17 - 1.33 HHCCT RESULT Normal [id number] CCT TEST NAME 16S RDNA, 28S RDNA, MTP PCR Normal [id number] [facility] Normal [id number] HHCCT RESULT Normal [id number] CCT [facility] Normal [id number] [facility] TEST NAME 16S RDNA, 28S RNA, MTB PCR Normal [id number] CCT ISTAT Ionized Calcium 1.2mmol/L Normal [id number] 1.17 - 1.33 HHCCT ISTAT Glucose 119mg/dL Above high normal [id number] 65 - 99 HHCCT ISTAT O2 Saturation 100% Above high normal 891940518162 94 - 97 HHCCT ISTAT Hematocrit 29% Below low normal 951037639927 39 - 54 HHCCT ISTAT Arterial PO2 232mmHg Above high normal [id number] 75 - 95 HHCCT ISTAT Hemoglobin 9.9gm/dL Below low normal [id number] 13 - 17.7 HHCCT Magnesium SerPl-mCnc 1.8mg/dL Normal [id number] 1.6 - 2.7 HHCCT Segmented Neutrophil 84% Normal [id number] HHCCT Neutrophils num Bld Auto 5.1Thou/uL Normal [id number] 2 - 7.5 HHCCT Eosinophil 2% Normal [id number] HHCCT Normocytes Normal [id number] HHCCT Lymphocytes/leuk NFr Bld Auto 10% Normal [id number] HHCCT Monocytes/leuk NFr Bld Auto 4% Normal [id number] HHCCT Normochromic Bld Ql Smear Normal [id number] HHCCT Monocyte, Absolute 0.2Thou/uL Normal [id number] 0.2 - 1 .5 HHCCT Lymphocytes num Bld Auto 0.6Thou/uL Below low normal [id number] 1.5 - 4.5 HHCCT Eosinophil num Bld Auto 0.1Thou/uL Normal [id number] 0 - 0.7 HHCCT RBC num Bld Auto 3.45Mil/uL Below low normal [id number] 4. 5 - 6.2 HHCCT WBC num Bld Auto 6.1Thou/uL Normal [id number] 4 - 11 HHCCT MCV RBC Auto 94fL Normal [id number] 80 - 100 HH[facility] T MCHC RBC Auto-mCnc 33.5g/dL Normal [id number] 30 - 36 HHCCT Hct VFr Bld Auto 32.5% Below low normal [id number] 39 - 54 HHCCT Hgb Bld-mCnc 10.9g/dL Below low normal [id number] 13 - 17 .7 HHCCT MCH RBC Qn Auto 31.6pg Above high normal [id number] 27 - 31 HHCCT Platelet num Bld Auto 127Thou/uL Below low normal [id number] 150 - 450 HHCCT PMV Bld Auto 10.6fL Normal [id number] 7.5 - 12.[address] RDW RBC Auto-Rto 13.7% Normal [id number] 11.5 - 14.5 HHCCT Glucose SerPl-mCnc 116mg/dL Above high normal [id number] 65 - 99 HHCCT Chloride SerPl-sCnc 102mmol/L Normal [id number] 98 - 107 HHCCT Anion Gap Bld-sCnc 9 Normal [id number] 7 - 17 HHCCT CO2 SerPl-sCnc 26mmol/L Normal [id number] 22 - 33 HH CCT BUN/Creat SerPl 16Ratio Normal [id number] 10 - 25 H HCCT Creat SerPl-mCnc 0.5mg/dL Normal [id number] 0.5 - 1.3 HHCCT Calcium SerPl-mCnc 8.9mg/dL Normal [id number] 8.7 - 10 .5 HHCCT Potassium SerPl-sCnc 3.5mmol/L Normal [id number] 3.4 - 5.3 HHCCT BUN SerPl-mCnc 8mg/dL Normal [id number] 8 - 21 HH CCT Sodium SerPl-sCnc 137mmol/L Normal [id number] 136 - 145 HHCCT GFR/BSA.pred SerPlBld ISB-NOQ-FwYIpp 90 Normal [id number] 59 - HHCCT Prothrombin time 15.1seconds Above high normal 970068210414 10 - 13.5 HHCCT INR PPP 1.3 Normal [id number] CCT Anticoagulant IV HEPARIN, UNFRACTIONATED, BEING HELD Normal [id number] [facility] 31seconds Normal [id number] 25 - 36 HHCCT Anticoagulant IV HEPARIN, UNFRACTIONATED, BEING HELD Normal [id number] HHCCT LMWH PPP [employer]-aCnc 0.04IU/mL Normal [id number] CCT Anticoagulant IV HEPARIN, UNFRACTIONATED, BEING HELD Normal [id number] HHCCT LMWH PPP [employer] Operator-aCnc 0.15IU/mL Normal [id number] HHCCT Anticoagulant IV HEPARIN, UNFRACTIONATED Normal [id number] CCT LMWH PPP [employer] Press Operator-aCnc 0.3IU/mL Normal [id number] HHCCT Anticoagulant IV HEPARIN, UNFRACTIONATED Normal [id number] HHCCT Hgb Bld-mCnc 12.1g/dL Below low normal [id number] 13 - 17 .7 HHCCT Lymphocytes num Bld Auto 1.41Thou/uL Below low normal [id number] 1.5 - 4.5 HHCCT RDW RBC Auto-Rto 13.8% Normal [id number] 11.5 - 14.5 HHCCT Eosinophil/leuk NFr Bld Auto 1.7% Normal [id number] HHCCT Platelet num Bld Auto 126Thou/uL Below low normal [id number] 150 - 450 HHCCT Immature Platelet Fraction 4.2% Normal [id number] 1.2 - 8.6 HHCCT Imm Granulocytes/leuk NFr Bld Auto 0.2% Normal [id number] HHCCT Hct VFr Bld Auto 36.3% Below low normal [id number] 39 - 54 HHCCT MCHC RBC Auto-mCnc 33.3g/dL Normal [id number] 30 - 36 HHCCT MCV RBC Auto 95fL Normal [id number] 80 - 100 HHCC T Imm Granulocytes num Bld Auto 0.01Thou/uL Normal [id number] 0 - 0.1 HHCCT PMV Bld Auto 10.7fL Normal [id number] 7.5 - 12.[address] Neutrophils/leuk NFr Bld Auto 62.1% Normal [id number] HHCCT Lymphocytes/leuk NFr Bld Auto 21.5% Normal [id number] HHCCT Basophils num Bld Auto 0.06Thou/uL Normal [id number] 0 - 0.2 HHCCT Monocytes num Bld Auto 0.89Thou/uL Normal [id number] 0.2 - 1.5 HHCCT Monocytes/leuk NFr Bld Auto 13.6% Normal [id number] HHCCT RBC num Bld Auto 3.81Mil/uL Below low normal [id number] 4. 5 - 6.2 HHCCT Eosinophil num Bld Auto 0.11Thou/uL Normal [id number] 0 - 0.7 HHCCT WBC num Bld Auto 6.6Thou/uL Normal [id number] 4 - 11 HHCCT Basophils/leuk NFr Bld Auto 0.9% Normal [id number] HHCCT Neutrophils num Bld Auto 4.07Thou/uL Normal [id number] 2 - 7.5 HHCCT MCH RBC Qn Auto 31.8pg Above high normal [id number] 27 - 31 HHCCT Magnesium SerPl-mCnc 1.7mg/dL Normal [id number] 1.6 - 2.7 HHCCT Anion Gap Bld-sCnc 6 Below low normal [id number] 7 - 17 HHCCT Sodium SerPl-sCnc 136mmol/L Normal [id number] 136 - 145 HHCCT GFR/BSA.pred SerPlBld YHM-MPN-EwAGrm 90 Normal [id number] 59 - HHCCT CO2 SerPl-sCnc 28mmol/L Normal [id number] 22 - 33 HH CCT Chloride SerPl-sCnc 102mmol/L Normal [id number] 98 - 107 HHCCT Creat SerPl-mCnc 0.6mg/dL Normal [id number] 0.5 - 1.3 HHCCT Calcium SerPl-mCnc 9.1mg/dL Normal [id number] 8.7 - 10 .5 HHCCT Glucose SerPl-mCnc 119mg/dL Above high normal [id number] 65 - 99 HHCCT BUN/Creat SerPl 17Ratio Normal [id number] 10 - 25 H HCCT BUN SerPl-mCnc 10mg/dL Normal [id number] 8 - 21 HH CCT Potassium SerPl-sCnc 3.9mmol/L Normal [id number] 3.4 - 5.3 HHCCT LMWH PPP [employer]-aCnc 0.33IU/mL Normal [id number] HHCCT Anticoagulant IV HEPARIN, UNFRACTIONATED Normal [id number] HHCCT LMWH PPP [employer] Operator-aCnc 0.04IU/mL Normal [id number] HHCCT Anticoagulant IV HEPARIN, UNFRACTIONATED Normal [id number] HHCCT Magnesium SerPl-mCnc 1.8mg/dL Normal [id number] 1.6 - 2.7 HHCCT Anion Gap Bld-sCnc 8 Normal [id number] 7 - 17 HHCCT Chloride SerPl-sCnc 103mmol/L Normal [id number] 98 - 107 HHCCT Calcium SerPl-mCnc 9.3mg/dL Normal [id number] 8.7 - 10 .5 HHCCT Sodium SerPl-sCnc 137mmol/L Normal [id number] 136 - 145 HHCCT ALT SerPl-cCnc 25U/L Normal [id number] 10 - 55 HH CCT BUN/Creat SerPl 20Ratio Normal [id number] 10 - 25 H HCCT Potassium SerPl-sCnc 3.8mmol/L Normal [id number] 3.4 - 5.3 HHCCT ALP SerPl-cCnc 80U/L Normal [id number] 45 - 128 HH CCT Globulin Ser Calc-mCnc 3.9g/dL Normal [id number] 1.5 - 3.9 HHCCT Bilirub SerPl-mCnc 0.8mg/dL Normal [id number] 0.2 - 1 HHCCT GFR/BSA.pred SerPlBld SYR-GNK-DhUVdv 90 Normal [id number] 59 - HHCCT AST SerPl-cCnc 36U/L Normal [id number] 10 - 55 HH CCT Prot SerPl-mCnc 7.1g/dL Normal [id number] 6.3 - 8.3 H HCCT Albumin/Glob SerPl 0.8Ratio Below low normal [id number] 1 - 3 HHCCT Creat SerPl-mCnc 0.6mg/dL Normal [id number] 0.5 - 1.3 HHCCT Albumin SerPl-mCnc 3.2g/dL Below low normal [id number] 3 .4 - 4.8 HHCCT BUN SerPl-mCnc 12mg/dL Normal [id number] 8 - 21 HH CCT Glucose SerPl-mCnc 100mg/dL Above high normal [id number] 65 - 99 HHCCT CO2 SerPl-sCnc 26mmol/L Normal [id number] 22 - 33 HH CCT Vancomycin SerPl-mCnc 21mg/L Normal [id number] HHCCT Time of last dose Normal [id number] HHCCT LMWH PPP [employer] Press Operator-aCnc 0.04IU/mL Normal [id number] HHCCT Anticoagulant IV HEPARIN, UNFRACTIONATED Normal [id number] HHCCT PMV Bld Auto 10.8fL Normal [id number] 7.5 - 12.[address] Hct VFr Bld Auto 35.7% Below low normal [id number] 39 - 54 HHCCT Basophils num Bld Auto 0.05Thou/uL Normal [id number] 0 - 0.2 HHCCT Monocytes num Bld Auto 0.84Thou/uL Normal [id number] 0.2 - 1.5 HHCCT Neutrophils/leuk NFr Bld Auto 65.3% Normal [id number] HHCCT Eosinophil/leuk NFr Bld Auto 2.1% Normal [id number] HHCCT Monocytes/leuk NFr Bld Auto 13.7% Normal [id number] HHCCT RBC num Bld Auto 3.73Mil/uL Below low normal [id number] 4. 5 - 6.2 HHCCT Imm Granulocytes/leuk NFr Bld Auto 0.2% Normal [id number] HHCCT MCH RBC Qn Auto 32.2pg Above high normal [id number] 27 - 31 HHCCT Platelet num Bld Auto 145Thou/uL Below low normal [id number] 150 - 450 HHCCT Neutrophils num Bld Auto 4.02Thou/uL Normal [id number] 2 - 7.5 HHCCT WBC num Bld Auto 6.2Thou/uL Normal [id number] 4 - 11 HHCCT Basophils/leuk NFr Bld Auto 0.8% Normal [id number] HHCCT Imm Granulocytes num Bld Auto 0.01Thou/uL Normal [id number] 0 - 0.1 HHCCT Eosinophil num Bld Auto 0.13Thou/uL Normal [id number] 0 - 0.7 HHCCT MCV RBC Auto 96fL Normal [id number] 80 - 100 HHCC T RDW RBC Auto-Rto 13.7% Normal [id number] 11.5 - 14.5 HHCCT Lymphocytes/leuk NFr Bld Auto 17.9% Normal [id number] HHCCT MCHC RBC Auto-mCnc 33.6g/dL Normal [id number] 30 - 36 HHCCT Lymphocytes num Bld Auto 1.1Thou/uL Below low normal [id number] 1.5 - 4.5 HHCCT Hgb Bld-mCnc 12g/dL Below low normal [id number] 13 - 17 .7 HHCCT LMWH PPP [employer] Press Operator-aCnc 0.34IU/mL Normal [id number] HHCCT Anticoagulant IV HEPARIN, UNFRACTIONATED Normal [id number] HHCCT Calcium SerPl-mCnc 9.1mg/dL Normal [id number] 8.7 - 10 .5 HHCCT Creat SerPl-mCnc 0.5mg/dL Normal [id number] 0.5 - 1.3 HHCCT CO2 SerPl-sCnc 24mmol/L Normal [id number] 22 - 33 HH CCT Glucose SerPl-mCnc 112mg/dL Above high normal [id number] 65 - 99 HHCCT BUN/Creat SerPl 22Ratio Normal [id number] 10 - 25 H HCCT Sodium SerPl-sCnc 136mmol/L Normal [id number] 136 - 145 HHCCT BUN SerPl-mCnc 11mg/dL Normal [id number] 8 - 21 HH CCT Chloride SerPl-sCnc 102mmol/L Normal [id number] 98 - 107 [facility] Anion Gap Bld-sCnc 10 Normal [id number] 7 - 17 [facility] GFR/BSA.pred SerPlBld OCQ-FSH-EsIUib 90 Normal [id number] 59 - HHCCT Potassium SerPl-sCnc 4.1mmol/L Normal [id number] 3.4 - 5.3 [facility] Magnesium SerPl-mCnc 1.8mg/dL Normal [id number] 1.6 - 2.7 [facility]CT LMWH PPP [employer] Operator-aCnc Normal [id number] H[facility]CT Anticoagulant IV HEPARIN, UNFRACTIONATED Normal [id number] H[facility]CT LMWH PPP [employer] Operator-aCnc 0.29IU/mL Normal [id number] H[facility]CT Anticoagulant IV HEPARIN, UNFRACTIONATED Normal [id number] H[facility]CT LMWH PPP [employer] Operator-aCnc 0.28IU/mL Normal [id number] H[facility]CT Anticoagulant IV HEPARIN, UNFRACTIONATED Normal [id number] H[facility]CT Magnesium SerPl-mCnc 1.7mg/dL Normal [id number] 1.6 - 2.7 [facility]CT LMWH PPP [employer] Operator-aCnc 0.23IU/mL Normal [id number] H[facility]CT Anticoagulant IV HEPARIN, UNFRACTIONATED Normal [id number] H[facility]CT BUN/Creat SerPl 20Ratio Normal [id number] 10 - 25 H HCCT Chloride SerPl-sCnc 96mmol/L Below low normal [id number] 98 - 107 [facility]CT ALP SerPl-cCnc 83U/L Normal [id number] 45 - 128 HH CCT Sodium SerPl-sCnc 132mmol/L Below low normal [id number] 13 6 - 145 [facility]CT Potassium SerPl-sCnc 2.8mmol/L Below low normal [id number] 3.4 - 5.3 [facility] Albumin/Glob SerPl 0.9Ratio Below low normal [id number] 1 - 3 [facility] GFR/BSA.pred SerPlBld VEM-ZAB-UiWBuw 90 Normal [id number] 59 - HHCCT Glucose SerPl-mCnc 115mg/dL Above high normal [id number] 65 - 99 [facility]CT Calcium SerPl-mCnc 9.3mg/dL Normal [id number] 8.7 - 10 .5 [facility]CT Globulin Ser Calc-mCnc 3.8g/dL Normal [id number] 1.5 - 3.9 H[facility]CT AST SerPl-cCnc 38U/L Normal [id number] 10 - 55 HH CCT Albumin SerPl-mCnc 3.3g/dL Below low normal [id number] 3 .4 - 4.8 [facility]CT ALT SerPl-cCnc 24U/L Normal [id number] 10 - 55 HH CCT BUN SerPl-mCnc 12mg/dL Normal [id number] 8 - 21 HH CCT Anion Gap Bld-sCnc 10 Normal [id number] 7 - 17 [facility] Creat SerPl-mCnc 0.6mg/dL Normal [id number] 0.5 - 1.3 [facility] CO2 SerPl-sCnc 26mmol/L Normal [id number] 22 - 33 HH CCT Prot SerPl-mCnc 7.1g/dL Normal [id number] 6.3 - 8.3 H HCCT Bilirub SerPl-mCnc 1.1mg/dL Above high normal [id number] 0.2 - 1 [facility] Hct VFr Bld Auto 35.2% Below low normal [id number] 39 - 54 [facility] Basophils/leuk NFr Bld Auto 0.5% Normal [id number] [facility] Neutrophils num Bld Auto 3.64Thou/uL Normal [id number] 2 - 7.5 [facility]CT Basophils num Bld Auto 0.03Thou/uL Normal [id number] 0 - 0.2 [facility] Lymphocytes/leuk NFr Bld Auto 22% Normal [id number] [facility] Neutrophils/leuk NFr Bld Auto 63.3% Normal [id number] H[facility]CT Hgb Bld-mCnc 12.5g/dL Below low normal [id number] 13 - 17 .7 [facility] PMV Bld Auto 10.5fL Normal [id number] 7.5 - 12.[address] MCV RBC Auto 91fL Normal [id number] 80 - 100 HHCC T Imm Granulocytes/leuk NFr Bld Auto 0.3% Normal [id number] H[facility] RBC num Bld Auto 3.88Mil/uL Below low normal [id number] 4. 5 - 6.2 [facility] Monocytes/leuk NFr Bld Auto 12.5% Normal [id number] [facility] Platelet num Bld Auto 142Thou/uL Below low normal [id number] 150 - 450 [facility] Eosinophil num Bld Auto 0.08Thou/uL Normal [id number] 0 - 0.7 H[facility]CT MCHC RBC Auto-mCnc 35.5g/dL Normal [id number] 30 - 36 [facility] Eosinophil/leuk NFr Bld Auto 1.4% Normal [id number] H[facility]CT Monocytes num Bld Auto 0.72Thou/uL Normal [id number] 0.2 - 1.5 H[facility] Imm Granulocytes num Bld Auto 0.02Thou/uL Normal [id number] 0 - 0.1 [facility]CT Lymphocytes num Bld Auto 1.27Thou/uL Below low normal [id number] 1.5 - 4.5 H[facility] MCH RBC Qn Auto 32.2pg Above high normal [id number] 27 - 31 [facility] WBC num Bld Auto 5.8Thou/uL Normal [id number] 4 - 11 H[facility]CT RDW RBC Auto-Rto 13.4% Normal [id number] 11.5 - 14.5 [facility] Monocytes/leuk NFr Bld Auto 14% Normal [id number] [facility] RDW RBC Auto-Rto 13.5% Normal [id number] 11.5 - 14.5 [facility] Imm Granulocytes num Bld Auto 0.02Thou/uL Normal [id number] 0 - 0.1 [facility] Hct VFr Bld Auto 36.3% Below low normal [id number] 39 - 54 [facility] Neutrophils num Bld Auto 5.26Thou/uL Normal [id number] 2 - 7.5 [facility] Hgb Bld-mCnc 12.8g/dL Below low normal [id number] 13 - 17 .7 [facility] Immature Platelet Fraction 5.5% Normal [id number] 1.2 - 8.6 [facility] RBC num Bld Auto 3.99Mil/uL Below low normal [id number] 4. 5 - 6.2 [facility] Basophils num Bld Auto 0.04Thou/uL Normal [id number] 0 - 0.2 [facility] Basophils/leuk NFr Bld Auto 0.5% Normal [id number] [facility] Imm Granulocytes/leuk NFr Bld Auto 0.3% Normal [id number] [facility] Neutrophils/leuk NFr Bld Auto 69% Normal [id number] [facility] WBC num Bld Auto 7.6Thou/uL Normal [id number] 4 - 11 [facility] Platelet num Bld Auto 129Thou/uL Below low normal [id number] 150 - 450 [facility] MCHC RBC Auto-mCnc 35.3g/dL Normal [id number] 30 - 36 [facility] MCV RBC Auto 91fL Normal [id number] 80 - 100 [facility] T Eosinophil num Bld Auto 0.06Thou/uL Normal [id number] 0 - 0.7 [facility] PMV Bld Auto 10.8fL Normal [id number] 7.5 - 12.[address] Lymphocytes num Bld Auto 1.17Thou/uL Below low normal [id number] 1.5 - 4.5 [facility] Lymphocytes/leuk NFr Bld Auto 15.4% Normal [id number] [facility] Monocytes num Bld Auto 1.07Thou/uL Normal [id number] 0.2 - 1.5 [facility] MCH RBC Qn Auto 32.1pg Above high normal [id number] 27 - 31 [facility] Eosinophil/leuk NFr Bld Auto 0.8% Normal [id number] [facility] BUN SerPl-mCnc 13mg/dL Normal [id number] 8 - 21 HH CCT AST SerPl-cCnc 40U/L Normal 10 - 55 HH CCT BUN/Creat SerPl 26Ratio Above high normal [id number] 10 - 25 [facility] ALT SerPl-cCnc 25U/L Normal 10 - 55 HH CCT Albumin/Glob SerPl 0.8Ratio Below low normal [id number] 1 - 3 [facility]CT Bilirub SerPl-mCnc 1.2mg/dL Above high normal 0.2 - 1 [facility] CO2 SerPl-sCnc 24mmol/L Normal 22 - 33 HH CCT Creat SerPl-mCnc 0.5mg/dL Normal 0.5 - 1.3 [facility]CT GFR/BSA.pred SerPlBld HIB-ZKX-SuSUyc 90 Normal 59 - H[facility]CT ALP SerPl-cCnc 83U/L Normal 45 - 128 HH CCT Anion Gap Bld-sCnc 11 Normal 7 - 17 [facility]CT Potassium SerPl-sCnc 3.5mmol/L Normal 3.4 - 5.3 [facility] Glucose SerPl-mCnc 122mg/dL Above high normal 65 - 99 [facility]CT Albumin SerPl-mCnc 3.2g/dL Below low normal 3 .4 - 4.8 [facility]CT Calcium SerPl-mCnc 9mg/dL Normal 8.7 - 10 .5 [facility] Sodium SerPl-sCnc 134mmol/L Below low normal 13 6 - 145 [facility] Prot SerPl-mCnc 7g/dL Normal 6.3 - 8.3 H [facility]CT Globulin Ser Calc-mCnc 3.8g/dL Normal 1.5 - 3.9 [facility]CT Chloride SerPl-sCnc 99mmol/L Normal 98 - 107 [facility] Magnesium SerPl-mCnc 1.7mg/dL Normal 1.6 - 2.7 [facility] LMWH PPP [employer] Operator-aCnc 0.33IU/mL Normal [facility] Anticoagulant IV HEPARIN, UNFRACTIONATED Normal [facility] LMWH PPP [employer] Operator-aCnc 0.35IU/mL Normal [id number] [facility] Anticoagulant IV HEPARIN, UNFRACTIONATED Normal [id number] [facility] INR PPP 1.6 Normal [id number] [facility] Prothrombin time 18.2seconds Above high normal [id number] 10 - 13.5 HHT Anticoagulant IV HEPARIN, UNFRACTIONATED Normal [id number] [facility] aPTT PPP 31seconds Normal [id number] 25 - 36 [facility] Anticoagulant IV HEPARIN, UNFRACTIONATED Normal [id number] [facility] WBC num Bld Auto 9.2Thou/uL Normal [id number] 4 - 11 [facility] Hgb Bld-mCnc 11.6g/dL Below low normal [id number] 13 - 17 .7 HHT Eosinophil num Bld Auto 0.07Thou/uL Normal [id number] 0 - 0.7 [facility] MCV RBC Auto 91fL Normal [id number] 80 - 100 HH T Imm Granulocytes/leuk NFr Bld Auto 0.4% Normal [id number] HHT Basophils num Bld Auto 0.04Thou/uL Normal [id number] 0 - 0.2 [facility] Lymphocytes num Bld Auto 0.98Thou/uL Below low normal [id number] 1.5 - 4.5 [facility] Neutrophils num Bld Auto 7.13Thou/uL Normal [id number] 2 - 7.5 [facility] Hct VFr Bld Auto 33.3% Below low normal [id number] 39 - 54 [facility] RDW RBC Auto-Rto 13.4% Normal [id number] 11.5 - 14.5 [facility]CT Eosinophil/leuk NFr Bld Auto 0.8% Normal [id number] [facility] RBC num Bld Auto 3.66Mil/uL Below low normal [id number] 4. 5 - 6.2 [facility] PMV Bld Auto 10.6fL Normal [id number] 7.5 - 12.5 [facility] CT Lymphocytes/leuk NFr Bld Auto 10.6% Normal [id number] [facility] Monocytes num Bld Auto 0.95Thou/uL Normal [id number] 0.2 - 1.5 [facility] Monocytes/leuk NFr Bld Auto 10.3% Normal [id number] [facility] Neutrophils/leuk NFr Bld Auto 77.5% Normal [id number] [facility]CT MCHC RBC Auto-mCnc 34.8g/dL Normal [id number] 30 - 36 [facility] Platelet num Bld Auto 125Thou/uL Below low normal [id number] 150 - 450 [facility]CT MCH RBC Qn Auto 31.7pg Above high normal [id number] 27 - 31 [facility] Basophils/leuk NFr Bld Auto 0.4% Normal [id number] [facility] Imm Granulocytes num Bld Auto 0.04Thou/uL Normal [id number] 0 - 0.1 [facility] MCV RBC Auto 92fL Normal [id number] 80 - 100 [facility] T Basophils/leuk NFr Bld Auto 0.5% Normal [id number] [facility] RBC num Bld Auto 3.79Mil/uL Below low normal [id number] 4. 5 - 6.2 [facility]CT Neutrophils num Bld Auto 7.47Thou/uL Normal [id number] 2 - 7.5 [facility]CT Basophils num Bld Auto 0.05Thou/uL Normal [id number] 0 - 0.2 [facility]CT Hct VFr Bld Auto 35% Below low normal [id number] 39 - 54 [facility] Neutrophils/leuk NFr Bld Auto 76.4% Normal [id number] [facility]CT RDW RBC Auto-Rto 13.5% Normal [id number] 11.5 - 14.5 [facility]CT Lymphocytes num Bld Auto 1.12Thou/uL Below low normal [id number] 1.5 - 4.5 [facility]CT Hgb Bld-mCnc 12.1g/dL Below low normal [id number] 13 - 17 .7 H[facility]CT Eosinophil num Bld Auto 0.1Thou/uL Normal [id number] 0 - 0.7 [facility]CT PMV Bld Auto 10.3fL Normal [id number] 7.5 - 12.[address] Imm Granulocytes/leuk NFr Bld Auto 0.3% Normal [id number] H[facility]CT Eosinophil/leuk NFr Bld Auto 1% Normal [id number] H[facility]CT Immature Platelet Fraction 4% Normal [id number] 1.2 - 8.6 [facility]CT Monocytes num Bld Auto 1.02Thou/uL Normal [id number] 0.2 - 1.5 [facility]CT Lymphocytes/leuk NFr Bld Auto 11.4% Normal [id number] [facility] Platelet num Bld Auto 134Thou/uL Below low normal [id number] 150 - 450 [facility]CT Monocytes/leuk NFr Bld Auto 10.4% Normal [id number] [facility]CT MCHC RBC Auto-mCnc 34.6g/dL Normal [id number] 30 - 36 [facility]CT Imm Granulocytes num Bld Auto 0.03Thou/uL Normal [id number] 0 - 0.1 [facility]CT WBC num Bld Auto 9.8Thou/uL Normal [id number] 4 - 11 H[facility]CT MCH RBC Qn Auto 31.9pg Above high normal [id number] 27 - 31 [facility]CT Magnesium SerPl-mCnc 1.9mg/dL Normal [id number] 1.6 - 2.7 H[facility]CT Prot SerPl-mCnc 7.1g/dL Normal [id number] 6.3 - 8.3 H [facility]CT AST SerPl-cCnc 54U/L Normal [id number] 10 - 55 HH CCT BUN/Creat SerPl 23Ratio Normal [id number] 10 - 25 H HCCT Albumin/Glob SerPl 0.9Ratio Below low normal [id number] 1 - 3 [facility]CT Calcium SerPl-mCnc 9.4mg/dL Normal [id number] 8.7 - 10 .5 H[facility]CT ALP SerPl-cCnc 77U/L Normal [id number] 45 - 128 HH CCT Creat SerPl-mCnc 0.7mg/dL Normal [id number] 0.5 - 1.3 [facility]CT Anion Gap Bld-sCnc 9 Normal [id number] 7 - 17 [facility]CT Sodium SerPl-sCnc 136mmol/L Normal [id number] 136 - 145 [facility]CT ALT SerPl-cCnc 27U/L Normal [id number] 10 - 55 HH CCT Bilirub SerPl-mCnc 1.5mg/dL Above high normal [id number] 0.2 - 1 [facility]CT Chloride SerPl-sCnc 100mmol/L Normal [id number] 98 - 107 H[facility]CT Albumin SerPl-mCnc 3.3g/dL Below low normal [id number] 3 .4 - 4.8 [facility]CT Potassium SerPl-sCnc 3.3mmol/L Below low normal [id number] 3.4 - 5.3 HHCCT BUN SerPl-mCnc 16mg/dL Normal [id number] 8 - 21 HH CCT GFR/BSA.pred SerPlBld YGR-MFR-XaDDtc 90 Normal [id number] 59 - HHCCT Glucose SerPl-mCnc 134mg/dL Above high normal [id number] 65 - 99 H[facility]CT CO2 SerPl-sCnc 27mmol/L Normal [id number] 22 - 33 HH CCT Globulin Ser Calc-mCnc 3.8g/dL Normal [id number] 1.5 - 3.9 HHCCT Potassium SerPl-sCnc 3.2mmol/L Below low normal [id number] 3.4 - 5.3 HHCCT ESR Bld Qn 49MM/HR Above high normal [id number] - 20 H[facility]CT CRP SerPl-mCnc 9.76mg/dL Above high normal [id number] 0 - 0.49 H[facility]CT Prothrombin time 18.6seconds Above high normal [id number] 10 - 13.5 HHCCT INR PPP 1.6 Normal [id number] H[facility]CT Anticoagulant NO ANTI COAGULANT MEDS Normal [id number] HHCCT Vancomycin SerPl-mCnc 22mg/L Normal [id number] H[facility]CT Time of last dose Normal [id number] H[facility]CT Magnesium SerPl-mCnc 1.8mg/dL Normal [id number] 1.6 - 2.7 H[facility]CT GFR/BSA.pred SerPlBld DWM-OVQ-AaOOdx 90 Normal [id number] 59 - HHCCT Anion Gap Bld-sCnc 11 Normal [id number] 7 - 17 HHCCT Chloride SerPl-sCnc 100mmol/L Normal [id number] 98 - 107 [facility]CT Albumin SerPl-mCnc 3.5g/dL Normal [id number] 3.4 - 4. 8 H[facility]CT Creat SerPl-mCnc 0.6mg/dL Normal [id number] 0.5 - 1.3 H[facility]CT ALP SerPl-cCnc 78U/L Normal [id number] 45 - 128 HH CCT Bilirub SerPl-mCnc 1.6mg/dL Above high normal [id number] 0.2 - 1 H[facility]CT Globulin Ser Calc-mCnc 3.7g/dL Normal [id number] 1.5 - 3.9 HHCCT AST SerPl-cCnc 63U/L Above high normal [id number] 10 - 55 H[facility]CT Prot SerPl-mCnc 7.2g/dL Normal [id number] 6.3 - 8.3 H HCCT Calcium SerPl-mCnc 9.2mg/dL Normal 8.7 - 10 .5 H[facility]CT BUN SerPl-mCnc 14mg/dL Normal 8 - 21 HH CCT BUN/Creat SerPl 23Ratio Normal [id number] 10 - 25 H HCCT ALT SerPl-cCnc 25U/L Normal [id number] 10 - 55 HH CCT Potassium SerPl-sCnc 2.9mmol/L Below low normal [id number] 3.4 - 5.3 H[facility]CT Sodium SerPl-sCnc 136mmol/L Normal [id number] 136 - 145 H[facility]CT CO2 SerPl-sCnc 25mmol/L Normal [id number] 22 - 33 HH CCT Glucose SerPl-mCnc 132mg/dL Above high normal [id number] 65 - 99 H[facility]CT Albumin/Glob SerPl 0.9Ratio Below low normal [id number] 1 - 3 [facility] History of Medication Use Medication Directions Dispensed Refills Start Date End Date Stat us Eliquis 5 MG tablet 01/11/2024 a ctive oxyCODONE (ROXICODONE) 5 mg/5 mL solution Take 5 mL (5 mg total) by mouth 4 times daily (every 6 hours) as needed for severe pain. Do not start before January 04, 2024. Max Daily Amount: 20 mg 01/04/2024 01/19/2024 aborted warfarin (COUMADIN) 1 MG tablet Take 4 tablets (4 mg total) by mouth daily at the same time. Do not start before January 04, 2024. 01/04/2024 01/19/2024 aborted magnesium hydroxide (MILK OF MAGNESIA) 400 mg/5 mL suspension Take 30 mL by mouth daily as needed for constipation. 12/25/2023 06/19/2024 active triamterene-hydroCHL OROthiazide (DYAZIDE) 37.5-25 MG per capsule Take 1 capsule by mouth daily. 12/07/2023 01/07/2024 suspended ferrous sulfate 325 (65 FE) MG EC tablet Take 1 tablet (325 mg total) by mouth daily. Take 2 hours before or 4 hours after acid reducers. 12/06/2023 01/26/2024 active cyanocobalamin (VITAMIN B12) 1000 MCG tablet Take 1 tablet (1,000 mcg total) by mouth daily. 12/06/2023 01/25/2024 active prazosin (MINIPRESS) 2 MG capsule Take 1 capsule (2 mg total) by mouth nightly. 12/06/2023 01/25/2024 active hydrALAZINE (APRESOLINE) 20 MG/ML injection Infuse 0.5 mL (10 mg total) into a venous catheter 4 times daily (every 6 hours) as needed for SBP greater than 170 mmHg. 12/06/2023 01/06/2024 suspended ondansetron (ZOFRAN) 4 MG/2ML injection Infuse 2 mL (4 mg total) into a venous catheter once as needed for nausea or vomiting. 12/06/2023 suspended Problems Problem Status Onset Date Problem Type Date of Resoluti on Source Fracture dislocation of lumbar spine active 2023-11-22 ProblemAct [facility] Lumbar stenosis without neurogenic claudication active 2023-12-12 ProblemAct [facility] T Lumbar burst fracture active 2023-11-18 ProblemAct [facility] Atrial fibrillation active 2023-12-08 ProblemAct [facility] Hypertension active 2023-12-08 ProblemAct [facility] Spinal instability of lumbar region active 2023-11-22 ProblemAct [facility] Hyponatremia active 2023-11-29 ProblemAct [facility] S/P lumbar fusion active 2023-12-06 ProblemAct [facility] Vitamin D deficiency active 2023-12-08 ProblemAct [facility] Abscess in epidural space of lumbar spine active 2023-11-22 ProblemAct [facility] Back pain active 2023-11-18 ProblemAct [facility] Osteomyelitis active 2023-11-18 ProblemAct [facility] T Normocytic anemia active 2023-11-29 ProblemAct [facility] Encounters Encounter Type Encounter Reason Primary Diagnosis Location Date Ambulatory Arthrodesis status Arthrodesis status [facility] QA on Request 06/19/2024 Ambulatory Arthrodesis status Arthrodesis status [facility] QA on Request 04/10/2024 Ambulatory Spinal stenosis, lumbar region without neurogenic claudication Spinal stenosis, lumbar region without neurogenic claudication [facility] 02/07/2024 Ambulatory Other chronic hematogenous osteomyelitis, unspecified site Other chronic hematogenous osteomyelitis, unspecified site [facility] 02/07/2024 Ambulatory Arthrodesis status Arthrodesis status [facility] QA on Request 01/19/2024 Inpatient Spinal stenosis, lumbar region without neurogenic claudication Spinal stenosis, lumbar region without neurogenic claudication [facility] 12/06/2023 Inpatient Osteomyelitis, unspecified Osteomyelitis, unspecified [facility] 11/18/2023 Care Team Organization Name Specialty Phone Email Start Date End Da te [facility] KATINA VARGHESE Primary Care 01/02/2024 [facility] CONG VELEZ Primary Care 12/31/2023 [facility] Bertha Heller Primary Care 11/19/2023 [facility] 11/19/2023 10/02/2024 [facility] 11/18/2023
--- OUTSIDE RECORDS SUMMARY | 2024-11-11 17:16 | XMS_ITS ---
Author Organization [facility] Address [address] [place] [id number] Care Team Providers Care Evp Chief Exploration Officer Name Role Phone [facility] Primary Care Provider REASON FOR VISIT Test results Encounters Encounter Location Date Provider Diagnosis [facility] [address] [place] [address] [place] [phone] 07/12/2024 [facility] Plan Of Treatment Next Appt Details Provider Name:Velvet Pittman , 11/22/2024 09:15:00 AM, [address] [place] [address], [phone], Provider Name:Velvet [facility]man , 06/30/2025 11:00:00 AM, [address] [place] [address], [phone], Progress Notes * Josh RAINDOB:1950 (73 yo M)Acc No.[id number]:07/12/2024 Patient:?Josh RAIN :1950???Age:73 Y???Sex:Male Address:[address] [place] [address], [address] * true * Date:? Generated for Printi ng/Famildredg/eTransmitting on:?11/11/2024 05:16 PM EDT
--- OUTSIDE RECORDS SUMMARY | 2024-11-11 17:16 | XMS_ITS | Encounter Summary ---
Author Organization [facility] Address [address] [place] [id number] Care Team Providers Care Roll Skinner Name Role Phone Bertha Heller APRN Primary Care Provider Jhonatan Calderon RN Unavailable Lizzy Gann MD Primary Care Provider [phone] [facility] Primary Care Provider [phone] Encounter Details Date Type Department Care Team (Late st Contact Info) Description 12/18/2023 Telephone [facility] [address] [facility] [address] [place] [phone] Jareth Rollins MD [address] [facility] [place] [address] [place] [phone] Social History Tobacco Use Types Packs/Day Years Used Date Smoking Tobacco: Never Assessed [facility] Utilities Answer Date Recorded In the past 12 months has Canal do [employer], gas, oil, or water [employer] threatened to shut off services in your [...] Answer Date Recorded PHQ-2 Total Score 0 12/06/2023 Hunger Vital Sign Answer Date Recorded Within [...] medical appointments or from getting medications? No 11/2023 In the past 12 months, has l ack of transportation kept you from meetings, work, or from getting things needed for daily living? No 11/19/2023 Housing Stability Vital Sign Answer Jimmie e [...] place to sleep or slept in a long-term (including now)? No 11/19/2023 Sex and Gender Information Value Date Recorded Sex Assigned at Male 11/18/2023 7:54 PM EDT Legal Sex Male 3:18 PM EDT Gender Identity Male 11/18/2023 7:54 PM EDT Sexual Orientation Heterosexual (straight) 11/17 7:54 PM EDT documented as of this encounter Miscellaneous Notes * Telephone Encounter - Savanna Corrales PA-C - 12/18/2023 11:25 AM EDT I completely understand. Noticed that as well. Lets have patient rescheduled once they are feeling better and discharged documented in this encounter Plan of Treatment Upcoming Encounters Date Type Department Care Team (Late st Contact Info) Description 12/24/2024 10:30 AM EDT Office Visit [facility] [id number] [address] [facility] [address] [place] [phone] Nomi Barreto APRN 85 [facility] [address] [place] [address] documented as of this encounter Visit Diagnoses Not on filedocumented in this encounter Care Teams Roll Skinner Relationship Specialty Start Date End Date Bertha Heller APRN [address] [place] [address] PCP - General Internal Medicine 11/19/23 12/28/23 Lizzy Gann MD [address] [place] [address] PCP - General General Medicine 12/29/23 01/01/24 [facility] [address] [place] [address] PCP - General 01/02/24 Jhonatan Calderon RN [address] [place] [address] Nurse Navigator Surgery, Neurosurgery 11/20/23 documented as of this encounter
--- OUTSIDE RECORDS SUMMARY | 2024-11-11 17:16 | XMS_ITS | Patient Health Record ---
Author Organization [facility] Address [address] [place] [address] [phone] Care Team Providers Care Automation Architect Name Role Phone [facility] Primary [facility] Provider Allergies No Known Allergies Results Component Value Reference Range Notes Magnesium-[id number] Reviewed date:06/17/2024 05:27:44 PM Interpretation: Performing Lab:[facility], [address] [facility], Phone - [phone], Director - MDJodry Notes/Report: Magnesium 1.5 1.6-2.3 mg/dL Comp. Metabolic Panel (14)-3 17475 Reviewed date:06/17/2024 05:27:44 PM Interpretation: Performing Lab:[facility], [address] [facility], Phone - [phone], Director - MDJodry Notes/Report: Glucose 123 70-99 mg/dL BUN 13 8-27 mg/dL Creatinine 1.08 0.76-1.27 mg/dL eGFR 72 >59 mL/min/1.73 BUN/Creatinine Ratio 12 10-24 Sodium 138 134-144 mmol/L Potassium 4.1 3.5-5.2 mmol/L Chloride 100 96-106 mmol/L Carbon Dioxide, Total 23 20-29 mmol/L Calcium 9.1 8.6-10.2 mg/dL Protein, Total 7.9 6.0-8.5 g/dL Albumin 4.2 3.8-4.8 g/dL Globulin, Total 3.7 1.5-4.5 g/dL Bilirubin, Total 1.3 0.0-1.2 mg/dL Alkaline Phosphatase 110 44-121 IU/L AST (SGOT) 32 0-40 IU/L ALT (SGPT) 24 0-44 IU/L Hemoglobin N1a-[id number] Reviewed date:02/07/2024 06:32:27 PM Interpretation: Performing Lab:Kim Goodman, [address] [place] [address], Phone - [phone], Director - Yahir Notes/Report: Hemoglobin A1c 6.0 4.8-5.6 % . Prediabetes: 5.7 - 6.4 Diabetes: >6.4 Glycemic control for adults with diabetes: <7.0 CBC With Differential/Platel et-[id number] Reviewed date:02/07/2024 06:32:27 PM Interpretation: Performing Lab:[facility], [address] [place] [address], Phone - [phone], Director - Yahir Notes/Report: WBC 6.8 3.4-10.8 x10E3/uL RBC 3.63 4.14-5.80 x10E6/uL Hemoglobin 11.7 13.0-17.7 g/dL Hematocrit 36.1 37.5-51.0 % MCV 99 79-97 fL MCH 32.2 26.6-33.0 pg MCHC 32.4 31.5-35.7 g/dL RDW 12.9 11.6-15.4 % Platelets 159 150-450 x10E3/uL Neutrophils 56 Not Estab. % Lymphs 26 Not Estab. % Monocytes 14 Not Estab. % Eos 3 Not Estab. % Basos 1 Not Estab. % Neutrophils (Absolute) 3.8 1.4-7.0 x10E3/uL Lymphs (Absolute) 1.8 0.7-3.1 x10E3/uL Monocytes(Absolute) 1.0 0.1-0.9 x10E3/uL Eos (Absolute) 0.2 0.0-0.4 x10E3/uL Baso (Absolute) 0.1 0.0-0.2 x10E3/uL Immature Granulocytes 0 Not Estab. % Immature Grans (Abs) 0.0 0.0-0.1 x10E3/uL [facility]-[id number] Reviewed date:02/07/2024 06:32:27 PM Interpretation: Performing Lab:[facility] [address] [place] [address], [place], Phone - [phone], Director - Yahir Notes/Report: Sedimentation Rate-Westergren 52 0-30 mm/hr Comp. Metabolic Panel (14)-3 28999 Reviewed date:02/07/2024 06:32:27 PM Interpretation: Performing Lab:[facility], [address] [place] [address], Phone - [phone], Director - Yahir Notes/Report: Glucose 119 70-99 mg/dL BUN 13 8-27 mg/dL Creatinine 0.79 0.76-1.27 mg/dL eGFR 93 >59 mL/min/1.73 BUN/Creatinine Ratio 16 10-24 Sodium 138 134-144 mmol/L Potassium 4.2 3.5-5.2 mmol/L Chloride 98 96-106 mmol/L Carbon Dioxide, Total 26 20-29 mmol/L Calcium 9.7 8.6-10.2 mg/dL Protein, Total 7.5 6.0-8.5 g/dL Albumin 3.9 3.8-4.8 g/dL Globulin, Total 3.6 1.5-4.5 g/dL Bilirubin, Total 0.6 0.0-1.2 mg/dL Alkaline Phosphatase 94 44-121 IU/L AST (SGOT) 22 0-40 IU/L ALT (SGPT) 10 0-44 IU/L Magnesium-[id number] Reviewed date:06/02/2024 09:53:58 AM Interpretation: Performing Lab:[facility] [place], [facility], Phone - [phone], - Bam Notes/Report: Magnesium 1.4 1.6-2.3 mg/dL Osmolality-[id number] Reviewed date:06/02/2024 09:53:58 AM Interpretation: Performing Lab:[facility] [place], [facility], Phone - [phone], - Bam Notes/Report: Osmolality 298 280-301 mOsmol/kg Osmolality, Urine-[id number] Reviewed date:06/02/2024 09:53:58 AM Interpretation: Performing Lab:[facility] [place], [facility], Phone - [phone], - Bam Notes/Report: Osmolality, Urine 426 24 hr : 300 - 900 Random: 50 - 1400 After 12hr fluid restriction: >850 Comp. Metabolic Panel (14)-3 85444 Reviewed date:06/02/2024 09:53:58 AM Interpretation: Performing Lab:[facility], [address] [place] [address], Phone - [phone], Director - Bam Notes/Report: Glucose 182 70-99 mg/dL BUN 18 8-27 mg/dL Creatinine 1.03 0.76-1.27 mg/dL eGFR 76 >59 mL/min/1.73 BUN/Creatinine Ratio 17 10-24 Sodium 137 134-144 mmol/L Potassium 3.6 3.5-5.2 mmol/L Chloride 94 96-106 mmol/L Carbon Dioxide, Total 30 20-29 mmol/L Calcium 9.9 8.6-10.2 mg/dL Protein, Total 8.2 6.0-8.5 g/dL Albumin 4.3 3.8-4.8 g/dL Globulin, Total 3.9 1.5-4.5 g/dL Bilirubin, Total 1.1 0.0-1.2 mg/dL Alkaline Phosphatase 113 44-121 IU/L AST (SGOT) 38 0-40 IU/L ALT (SGPT) 22 0-44 IU/L Potassium, Urine-[id number] Reviewed date:06/02/2024 09:53:58 AM Interpretation: Performing Lab:Kim Chaparro, [facility], Phone - [phone], Director - Bam Notes/Report: Potassium, Urine 73.7 Not Estab. mmol/L PDF Report Reviewed date:02/07/2024 06:32:27 PM Interpretation: Performing Lab:Kim Goodman, [address] [place] [address], Phone - [phone], Director - Yahir Notes/Report: CARDEAP Reviewed date:06/10/2024 06:08:44 PM Interpretation: Performing Lab: Notes/Report: See Note [facility], a member of [employer] HISTORY: The patient is a 73-year-old male undergoing screening for an abdominal aortic aneurysm. FINDINGS: Real-time ultrasonography of the abdominal aorta is performed. The aorta is normal in caliber, with the suprarenal aorta measuring 2.9 cm in AP diameter x 2.7 cm in transverse dimension; the proximal infrarenal aorta measuring 2.6 x 2.3 cm; and the distal infrarenal aorta measuring 2.5 x 2.4 cm. A small to moderate amount of atherosclerotic plaque is present. The common iliac arteries are normal in caliber bilaterally, with the right RACHEL measuring 1.5 cm and the left RACHEL measuring 1.7 cm. IMPRESSION: The abdominal aorta is normal in caliber, without evidence of aneurysm. A small to moderate amount of atherosclerotic plaque is noted. Code 22921 CT Teleradiology G9551 -------- FINAL REPORT -------- Dictated By: David Crawford Dictated Date: 06/07/2024 11:57 ET Assigned Physician: David Crawford Reviewed and Electronically Signed By: David Crawford Signed Date: 06/07/2024 12:00 ET Workstation ID: [id number] Transcribed By: Self Edit Transcribed Date: 06/07/2024 11:57 ET See Note HISTORY: The patient is a 73-year-old male undergoing screening for an abdominal aortic aneurysm. FINDINGS: Real-time ultrasonography of the abdominal aorta is performed. The aorta is normal in caliber, with the suprarenal aorta measuring 2.9 cm in AP diameter x 2.7 cm in transverse dimension; the proximal infrarenal aorta measuring 2.6 x 2.3 cm; and the distal infrarenal aorta measuring 2.5 x 2.4 cm. A small to moderate amount of atherosclerotic plaque is present. The common iliac arteries are normal in caliber bilaterally, with the right RACHEL measuring 1.5 cm and the left RACHEL measuring 1.7 cm. IMPRESSION: The abdominal aorta is normal in caliber, without evidence of aneurysm. A small to moderate amount of atherosclerotic plaque is noted. Code 79066 CT Teleradiology G9551 -------- FINAL REPOR T -------- Dictated By: David Crawford Dictated Date: 06/07/2024 11:57 ET Assigned Physician: David Crawford Reviewed and Electronically Signed By: David Crawford Signed Date: 06/07/2024 12:00 ET Workstation ID: [id number] Transcribed By: Self Edit Transcribed Date: 06/07/2024 11:57 ET Urinalysis, Complete-[id number] Reviewed date:06/24/2024 06:56:06 PM Interpretation: Performing Lab:[facility], [address] [facility], Phone - [phone], Director - Yahir Notes/Report: Specific Milnor 1.017 1.005-1.030 pH 6.5 5.0-7.5 Urine-Color Yellow Yellow Appearance Clear Clear WBC Esterase Trace Negative Protein 1+ Negative/Trace Glucose Negative Negative Ketones Negative Negative Occult Blood Negative Negative Bilirubin Negative Negative Urobilinogen,Semi-Qn 1.0 0.2-1.0 mg/dL Nitrite, Urine Negative Negative Microscopic Examination See below: Micr oscopic was indicated and was performed. WBC 0-5 0 - 5 /hpf RBC None seen 0 - 2 /hpf Epithelial Cells (non renal) None seen 0 - 10 /hpf Casts None seen None seen /lpf Bacteria None seen None seen/Few CBC With Differential/Platel et-[id number] Reviewed date:06/24/2024 06:56:06 PM Interpretation: Performing Lab:[facility], [address] [facility], [place], Phone - [phone], Director - Yahir Notes/Report: WBC 7.7 3.4-10.8 x10E3/uL RBC 4.14 4.14-5.80 x10E6/uL Hemoglobin 13.8 13.0-17.7 g/dL Hematocrit 40.0 37.5-51.0 % MCV 97 79-97 fL MCH 33.3 26.6-33.0 pg MCHC 34.5 31.5-35.7 g/dL RDW 12.9 11.6-15.4 % Platelets 160 150-450 x10E3/uL Neutrophils 54 Not Estab. % Lymphs 29 Not Estab. % Monocytes 14 Not Estab. % Eos 2 Not Estab. % Basos 1 Not Estab. % Neutrophils (Absolute) 4.2 1.4-7.0 x10E3/uL Lymphs (Absolute) 2.2 0.7-3.1 x10E3/uL Monocytes(Absolute) 1.1 0.1-0.9 x10E3/uL Eos (Absolute) 0.1 0.0-0.4 x10E3/uL Baso (Absolute) 0.1 0.0-0.2 x10E3/uL Immature Granulocytes 0 Not Estab. % Immature Grans (Abs) 0.0 0.0-0.1 x10E3/uL Prostate-Specific Ag-[id number] Reviewed date:06/24/2024 06:56:06 PM Interpretation: Performing Lab:[facility], [address] [place] [address], Phone - [phone], Director - Yahir Notes/Report: Prostate Specific Ag 0.7 0.0-4.0 ng/mL Ani ECLIA methodology. . According to the [place] [employer], Serum PSA should decrease and remain at undetectable levels after radical prostatectomy. The AUA defines biochemical recurrence as an initial PSA value 0.2 ng/mL or greater followed by a subsequent confirmatory PSA value 0.2 ng/mL or greater. Values obtained with different assay methods or kits cannot be used interchangeably. Results cannot be interpreted as absolute evidence of the presence or absence of malignant disease. Vitamin D, 39-Czknzwp-406010 Reviewed date:06/24/2024 06:56:06 PM Interpretation: Performing Lab:[facility] [place], [address] [place] [address], Phone - [phone], Director - Yahir Notes/Report: Vitamin D, 25-Hydroxy 40.2 30.0-100.0 ng/mL Vitamin D deficiency has been defined by the [place] of [employer] and an Endocrine Society practice guideline as a level of serum 25-OH vitamin D less than 20 ng/mL (1,2). The Endocrine Society went on to further define vitamin D insufficiency as a level between 21 and 29 ng/mL (2). 1. IOM ([place] of [employer]). 2010. Dietary reference intakes for calcium and D. [place]: The National Academies Press. 2. Amelia MF, Ryan NC, Jenna SO, et al. Evaluation, treatment, and prevention of vitamin D deficiency: an Endocrine Society clinical practice guideline. JCEM. 2010; 96(7):1911-30. Comp. Metabolic Panel (14)-3 00314 Reviewed date:06/24/2024 06:56:06 PM Interpretation: Performing Lab:[facility] [place], [address] [place] [address], [place], Phone - [phone], Director - Yahir Notes/Report: Glucose 131 70-99 mg/dL BUN 12 8-27 mg/dL Creatinine 0.95 0.76-1.27 mg/dL eGFR 84 >59 mL/min/1.73 BUN/Creatinine Ratio 13 10-24 Sodium 138 134-144 mmol/L Potassium 4.2 3.5-5.2 mmol/L Chloride 101 96-106 mmol/L Carbon Dioxide, Total 22 20-29 mmol/L Calcium 9.4 8.6-10.2 mg/dL Protein, Total 8.2 6.0-8.5 g/dL Albumin 4.4 3.8-4.8 g/dL Globulin, Total 3.8 1.5-4.5 g/dL Bilirubin, Total 1.0 0.0-1.2 mg/dL Alkaline Phosphatase 116 44-121 IU/L AST (SGOT) 32 0-40 IU/L ALT (SGPT) 18 0-44 IU/L LP+Non-HDL Cholesterol-50764 5 Reviewed date:06/24/2024 06:56:06 PM Interpretation: Performing Lab:[facility], [address] [place] [address], Phone - [phone], Director - MDShefaliy Notes/Report: Cholesterol, Total 155 100-199 mg/dL Triglycerides 85 0-149 mg/dL HDL Cholesterol 82 >39 mg/dL VLDL Cholesterol Tyler 16 5-40 mg/dL LDL Chol Calc (NIH) 57 0-99 mg/dL Non-HDL Cholesterol 73 0-129 mg/dL HCV Antibody-[id number] Reviewed date:06/24/2024 06:56:06 PM Interpretation: Performing Lab:[facility], [address] [place] [address], Phone - [phone], Director - Yahir Notes/Report: Hep C Virus Ab Non Reactive Non Reactive HCV antibody alone does not differentiate between previously resolved infection and active infection. Equivocal and Reactive HCV antibody results should be followed up with an HCV RNA test to support the diagnosis of active HCV infection. Iron and TIBC-[id number] Reviewed date:01/08/2024 10:07:54 PM Interpretation: Performing Lab:[facility], [address] [place] [address], Phone - [phone], Director - Allyny Notes/Report: Iron Bind.Cap.(TIBC) 212 250-450 ug/dL UIBC 163 111-343 ug/dL Iron 49 38-169 ug/dL Iron Saturation 23 15-55 % Vitamin [id number] Reviewed date:01/08/2024 10:07:54 PM Interpretation: Performing Lab:[address], Phone - [phone], [place] [facility] Notes/Report: Vitamin B12 892 287-3113 pg/mL Haptoglobin-[id number] Reviewed date:01/08/2024 10:07:54 PM Interpretation: Performing Lab:[address], Phone - [phone], [place] [facility] Notes/Report: Haptoglobin 163 34-355 mg/dL Immunofixation, Serum-[id number] Reviewed date:01/08/2024 10:07:54 PM Interpretation: Performing Lab:[address], Phone - [phone], [place] [facility] Notes/Report: Immunofixation Result, Serum Polyclonal increase detected in one or more immunoglobulins. Immunoglobulin G, Qn, Serum 4678 933-3351 mg/dL Immunoglobulin A, Qn, Serum 425 61-437 mg/dL Immunoglobulin M, Qn, Serum 80 15-143 mg/dL Folate (Folic Acid), Serum-0 50527 Reviewed date:01/08/2024 10:07:54 PM Interpretation: Performing Lab:[address], Phone - [phone], [place] [facility] Notes/Report: Folate (Folic Acid), Serum 6.0 >3.0 ng/mL A serum folate concentration of less than 3.1 ng/mL is considered to represent clinical deficiency. Ferritin-[id number] Reviewed date:01/08/2024 10:07:54 PM Interpretation: Performing Lab:[address], Phone - [phone], [place] [facility] Notes/Report: Ferritin 327 30-400 ng/mL CBC With Differential/Platel et-124891 Reviewed date:01/08/2024 10:07:54 PM Interpretation: Performing Lab:[address], Phone - [phone], [place] [facility] Notes/Report: WBC 5.5 3.4-10.8 x10E3/uL RBC 3.28 4.14-5.80 x10E6/uL Hemoglobin 10.4 13.0-17.7 g/dL Hematocrit 33.3 37.5-51.0 % MCV 102 79-97 fL MCH 31.7 26.6-33.0 pg MCHC 31.2 31.5-35.7 g/dL RDW 14.4 11.6-15.4 % Platelets 171 150-450 x10E3/uL Neutrophils 64 Not Estab. % Lymphs 18 Not Estab. % Monocytes 16 Not Estab. % Eos 1 Not Estab. % Basos 1 Not Estab. % Neutrophils (Absolute) 3.5 1.4-7.0 x10E3/uL Lymphs (Absolute) 1.0 0.7-3.1 x10E3/uL Monocytes(Absolute) 0.9 0.1-0.9 x10E3/uL Eos (Absolute) 0.1 0.0-0.4 x10E3/uL Baso (Absolute) 0.0 0.0-0.2 x10E3/uL Immature Granulocytes 0 Not Estab. % Immature Grans (Abs) 0.0 0.0-0.1 x10E3/uL Sedimentation Rate-[facility] n-[id number] Reviewed date:01/08/2024 10:07:54 PM Interpretation: Performing Lab:[facility], [address] [place] [address], Phone - [phone], Director - [facility] Notes/Report: Sedimentation Rate-[facility] 26 0-30 mm/hr Reticulocyte Count-[id number] Reviewed date:01/08/2024 10:07:55 PM Interpretation: Performing Lab:[facility] [place], Phone - [phone], [facility] Notes/Report: Reticulocyte Count 1.7 0.6-2.6 % Comp. Metabolic Panel (14)-3 20662 Reviewed date:01/08/2024 10:07:55 PM Interpretation: Performing Lab:[facility] [place], Phone - [phone], Director - [facility] Notes/Report: Glucose 92 70-99 mg/dL BUN 10 8-27 mg/dL Creatinine 0.62 0.76-1.27 mg/dL eGFR 100 >59 mL/min/1.73 BUN/Creatinine Ratio 16 10-24 Sodium 139 134-144 mmol/L Potassium 4.0 3.5-5.2 mmol/L Chloride 100 96-106 mmol/L Carbon Dioxide, Total 26 20-29 mmol/L Calcium 8.9 8.6-10.2 mg/dL Protein, Total 6.8 6.0-8.5 g/dL Albumin 3.6 3.8-4.8 g/dL Globulin, Total 3.2 1.5-4.5 g/dL Bilirubin, Total 0.5 0.0-1.2 mg/dL Alkaline Phosphatase 121 44-121 IU/L AST (SGOT) 20 0-40 IU/L ALT (SGPT) 13 0-44 IU/L PDF Report Reviewed date:01/08/2024 10:07:55 PM Interpretation: Performing Lab:Kim Goodman [address] [place] [address], Phone - [phone], Director - Yahir Notes/Report: Hemoglobin D9y-[id number] Reviewed date:04/17/2024 06:09:08 PM Interpretation: Performing Lab:Kim Goodman [address] [place] [address], Phone - [phone], Director - Yahir Notes/Report: Hemoglobin A1c 6.1 4.8-5.6 % . Prediabetes: 5.7 - 6.4 Diabetes: >6.4 Glycemic control for adults with diabetes: <7.0 Sedimentation Rate-[place] n-[id number] Reviewed date:04/17/2024 06:09:09 PM Interpretation: Performing Lab:Kim Goodman [address] [place] [address], Phone - [phone], Director - Yahir Notes/Report: Sedimentation Rate-[place] 29 0-30 mm/hr C-Reactive Protein, Quant-00 6627 Reviewed date:04/17/2024 06:09:09 PM Interpretation: Performing Lab:Kim Goodman [address] [place] [address], Phone - [phone], Director Rocío Sinclair Notes/Report: C-Reactive Protein, Quant 2 0-10 mg/L Comp. Metabolic Panel (14)-3 57145 Reviewed date:04/17/2024 06:09:09 PM Interpretation: Performing Lab:Kim Goodman [address] [place] [address] [place], Phone - [phone], Director - MDJodry Notes/Report: Glucose 94 70-99 mg/dL BUN 13 8-27 mg/dL Creatinine 0.87 0.76-1.27 mg/dL eGFR 91 >59 mL/min/1.73 BUN/Creatinine Ratio 15 10-24 Sodium 139 134-144 mmol/L Potassium 4.0 3.5-5.2 mmol/L Chloride 96 96-106 mmol/L Carbon Dioxide, Total 25 20-29 mmol/L Calcium 9.9 8.6-10.2 mg/dL Protein, Total 8.3 6.0-8.5 g/dL Albumin 4.3 3.8-4.8 g/dL Globulin, Total 4.0 1.5-4.5 g/dL Bilirubin, Total 1.0 0.0-1.2 mg/dL Alkaline Phosphatase 107 44-121 IU/L AST (SGOT) 32 0-40 IU/L ALT (SGPT) 13 0-44 IU/L US Abdomen Aorta Scr Study A AA Reviewed date:06/24/2024 04:38:11 PM Interpretation: Performing Lab: Notes/Report: Sedimentation Rate-[place] n-[id number] Reviewed date:02/07/2024 06:32:27 PM Interpretation: Performing Lab:Kim Goodman, [address] [facility], Phone - [phone], Director - Yahir Notes/Report: Sedimentation Rate-Carolren 36 0-30 mm/hr CBC With Differential/Platel et-[id number] Reviewed date:02/07/2024 06:32:27 PM Interpretation: Performing Lab:Kim Goodman, [address] [facility], Phone - [phone], Director - Yahir Notes/Report: WBC 6.6 3.4-10.8 x10E3/uL RBC 3.34 4.14-5.80 x10E6/uL Hemoglobin 10.5 13.0-17.7 g/dL Hematocrit 33.7 37.5-51.0 % MCV 101 79-97 fL MCH 31.4 26.6-33.0 pg MCHC 31.2 31.5-35.7 g/dL RDW 13.6 11.6-15.4 % Platelets 169 150-450 x10E3/uL Neutrophils 56 Not Estab. % Lymphs 26 Not Estab. % Monocytes 15 Not Estab. % Eos 2 Not Estab. % Basos 1 Not Estab. % Neutrophils (Absolute) 3.7 1.4-7.0 x10E3/uL Lymphs (Absolute) 1.7 0.7-3.1 x10E3/uL Monocytes(Absolute) 1.0 0.1-0.9 x10E3/uL Eos (Absolute) 0.1 0.0-0.4 x10E3/uL Baso (Absolute) 0.1 0.0-0.2 x10E3/uL Immature Granulocytes 0 Not Estab. % Immature Grans (Abs) 0.0 0.0-0.1 x10E3/uL Comp. Metabolic Panel (14)-3 76755 Reviewed date:02/07/2024 06:32:28 PM Interpretation: Performing Lab:Kim Goodman, [address] [facility], Phone - [phone], Director - MDShefaliy Notes/Report: Glucose 149 70-99 mg/dL BUN 11 8-27 mg/dL Creatinine 0.71 0.76-1.27 mg/dL eGFR 96 >59 mL/min/1.73 BUN/Creatinine Ratio 15 10-24 Sodium 136 134-144 mmol/L Potassium 4.4 3.5-5.2 mmol/L Chloride 96 96-106 mmol/L Carbon Dioxide, Total 26 20-29 mmol/L Calcium 9.4 8.6-10.2 mg/dL Protein, Total 7.3 6.0-8.5 g/dL Albumin 3.7 3.8-4.8 g/dL Globulin, Total 3.6 1.5-4.5 g/dL Bilirubin, Total 0.5 0.0-1.2 mg/dL Alkaline Phosphatase 100 44-121 IU/L AST (SGOT) 19 0-40 IU/L ALT (SGPT) 11 0-44 IU/L COLOGUARD Reviewed date:04/03/2024 06:25:44 PM Interpretation:Positive Performing Lab: Notes/Report: Positive FIT DNA COLOGUARD 04/02/2024 PDF Report Reviewed date:02/07/2024 06:32:27 PM Interpretation: Performing Lab:Kim Goodman, [address] [facility], [place], Phone - [phone], Director - MDJoy Notes/Report: Hemoglobin Y5i-[id number] Reviewed date:07/12/2024 09:22:49 AM Interpretation: Performing Lab:[facility], [address] [place] [address], Phone - [phone], Director - Yahir Notes/Report: Hemoglobin A1c 6.4 4.8-5.6 % . Prediabetes: 5.7 - 6.4 Diabetes: >6.4 Glycemic control for adults with diabetes: <7.0 Comp. Metabolic Panel (14)-3 Reviewed date:07/12/2024 09:22:49 AM Interpretation: Performing Lab:[facility] [place], [address] [place] [address], Phone - [phone], Director - Yahir Notes/Report: Glucose 136 70-99 mg/dL BUN 16 8-27 mg/dL Creatinine 1.03 0.76-1.27 mg/dL eGFR 76 >59 mL/min/1.73 BUN/Creatinine Ratio 16 10-24 Sodium 136 134-144 mmol/L Potassium 4.9 3.5-5.2 mmol/L Chloride 100 96-106 mmol/L Carbon Dioxide, Total 19 20-29 mmol/L Calcium 10.0 8.6-10.2 mg/dL Protein, Total 9.0 6.0-8.5 g/dL Albumin 4.3 3.8-4.8 g/dL Globulin, Total 4.7 1.5-4.5 g/dL Bilirubin, Total 1.2 0.0-1.2 mg/dL Alkaline Phosphatase 122 44-121 IU/L AST (SGOT) 38 0-40 IU/L ALT (SGPT) 25 0-44 IU/L Phosphatidylethanol (PEth)-7 98709 Reviewed date:07/12/2024 09:22:49 AM Interpretation: Performing Lab:[facility], [address] [place] [address], Phone - [phone], Director - Yahir Notes/Report: PHOSPHATIDYLETHANOL Positive Phosphatidylethanol (PEth) 659 Analyzed compound: PEth 16:0/18:1. 2-edhkaygph-0-oleoyl- lb-helhgkc-4-phosphoe thanol. Analysis performed by Liquid Chromatography with Tandem Mass Spectrometry (LC/MS/MS). Detection limit: 20 ng/mL PEth levels in excess of 20 ng/mL are considered evidence of moderate to heavy ethanol consumption. However, the Center for Substance Abuse Treatment (CSAT) advises caution in interpretation and use of biomarkers alone to assess alcohol use. Results should be interpreted in the context of all available clinical and behavioral information. Reference: Substance Abuse and Mental Health Services Administration (2012). The Role of Biomarkers in the Treatment of Alcohol Use Disorders , 2012 Revision. Advisory, Volume 11, Issue 2. This test was developed and its performance characteristics determined by [facility]. It has not been cleared or approved by the Food and Drug Administration. Reason For Referral Reason faxed Diagnosis 1 Other fecal abnormal ities (R19.5) Referral Organization [facility] Referring Provider First Name Velvet Referring Provider Last Name Zain Referring Provider Speciality Internal edicine Referred Provider Osbaldo Lentz Referred Provider Specialty Gastroentero logy General Notes Charity ACOSTA 03/17 12:54:12 PM >faxed Referral Priority Routine Referral Appointment Date 06/11/2024 Reason Faxed Diagnosis 1 Other fecal abnormal ities (R19.5) Referral Organization [facility] Referring Provider First Name Velvet Referring Provider Last Name Zain Referring Provider Speciality Internal edicine Referred Provider Osbaldo Lentz Referred Provider Specialty Gastroentero logy General Notes Charity ACOSTA 03/19 02:07:57 PM >Faxed Referral Priority Routine Referral Appointment Date 06/11/2024 Medications Medication SIG (Take, Route, Frequency, Duration) Notes Start Date End Date Status Lyrica 75 MG 1 capsule in the evening 1 to 3 hours before bedtime Orally Once a day for 90 days 06/06/2024 06/01/2025 Active Ferrous Sulfate 325 (65 Fe) MG 1 tablet Orally Three times a Week for 90 days Active MiraLax Not-Taking QUEtiapine Fumarate 25 MG TAKE 1 TABLET AT BEDTIME for 90 Active Milk of Magnesia Not -Taking Sildenafil Citrate 20 MG 3 tablet Orally Once a day for 30 days 07/05/2024 01/01/2025 Active Atorvastatin Calcium 20 MG TAKE 1 TABLET ONCE DAILY Orally Once a day for 90 days Active Docusate Sodium 100 MG 1 capsule as need ed Orally Once a day for 90 days Not-Taking Miconatate 2-1 % as directed Externally Not-Taking DULoxetine HCl 30 MG 1 capsule Orally On ce a day for 90 days Active Eliquis 5 MG 1 Tablet Orally Twic e a day for 90 days 01/05/2024 Active Metoprolol Succinate ER 100 MG 1 tablet Orally Once a day for 90 days Active Ramipril 5 MG 1 capsule Orally Onc e a day for 90 days Active Vitamin D 25 MCG (1000 UT) 1 tablet Orally Once a day for 30 day(s) Active Tylenol Active Immunizations Vaccine Route Administration Date Status Comme nts Influenza (Fluad) Unknown 03/25/2020 Administered *Tdap Unknown 04/06/2007 Administered *PREVNAR 20 IM Intramuscular 06/20/2024 Administered *Askvzhnrq-Zqjlpvq-Opaa Dose-65+ IM Intramuscular 04/15/2024 Administered Influenza, high dose seasonal Unknown 03/16/2019 Administered Influenza, seasonal, injectable, 6-35 months Unknown 04/16/2007 Administered Influenza, seasonal, injectable, 6-35 months Unknown 04/16/2008 Administered Influenza, seasonal, injectable, 6-35 months Unknown 04/06/2009 Administered Influenza, seasonal, injectable, 6-35 months Unknown 04/12/2010 Administered Influenza, seasonal, injectable, 6-35 months Unknown 06/28/2011 Administered Influenza, seasonal, injectable, 6-35 months Unknown 05/11/2012 Administered Influenza, seasonal, injectable, 6-35 months Unknown 06/28/2013 Administered Influenza, seasonal, injectable, 6-35 months Unknown 04/02/2015 Administered Novel Zqerfcugq-L2G1-41, preservative free Unknown 07/07/2009 Administered Pneumococcal polysaccharide PCV 13 Unknown 01/26/2015 Administered Pneumococcal polysaccharide PPV23 Unknown 01/06/2014 Administered RSV-Arexby Unknown 06/23/2023 Administered Td (adult), absorbed Unknown 07/07/2017 Administered Zoster Unknown 04/12/2010 Administered Social History Tobacco Use: Social History Observation Description Date Details (start date - stop date) Former Smoker NA - NA AUDIT-C (Standard) Question Answer Notes Did you have a drink contain ing alcohol in the past year? Yes How often did you have six o r more drinks on one occasion in the past year? Never (0 point) How many drinks did you have on a typical day when you were drinking in the past year? 1 or 2 drinks (0 point) How often did you have a dri nk containing alcohol in the past year? Daily or almost daily (4 points) Points 4 Interpretation Positive Tobacco Control (Standard) Question Answer Notes Tobacco use: Former smoker How long has it been since you last smoked? 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) Active confirmed Problem Vitamin D deficiency (74824381) Vitamin D deficiency, unspecified (E55.9) Active confirmed Problem Mixed hyperlipidemia (811266446) Mixed hyperlipidemia (E78.2) Active confirmed Problem Encephalopathy (16251189) Encephalopathy, unspecified (G93.40) Active confirmed Problem Essential hypertension (45936633) Essential (primary) hypertension (I10) Active confirmed Problem Atrial fibrillation (84573654) Unspecified atrial fibrillation (I48.91) Active confirmed Problem Pressure ulcer o f unspecified part of back, stage 1 (L89.101) Active confirmed Problem Acute hematogenous osteomyelitis (998862652) Acute hematogenous osteomyelitis, other sites (M86.08) Active confirmed Problem Osteomyelitis (61941159) Osteomyelitis, unspecified (M86.9) Active confirmed Problem Long-term current use of anticoagulant (450818209) joint terminal attack controller (current) use of anticoagulants (Z79.01) Active confirmed Problem History of cerebrovascular accident without residual deficits (536699468) Personal history of transient ischemic attack (TIA), and cerebral infarction without residual deficits (Z86.73) Active confirmed Problem Cardiac pacemaker in situ (305426100) Presence of cardiac pacemaker (Z95.0) Active confirmed Problem Prediabetes (590585802) Prediabetes (R73.03) Active confirmed Problem Neurogenic claudication (510918964) Spinal stenosis, lumbar region with neurogenic claudication (M48.062) Active confirmed Problem Permanent atrial fibrillation (830397248) Permanent atrial fibrillation (I48.21) Active confirmed Problem Aneurysm of ascending aorta (disorder) (294819777) Aneurysm of the ascending aorta, without rupture (I71.21) Active confirmed Vital Signs Heart Rate 64 /min 07/05/2024 Temperature 96.2 degrees Fahrenheit 07/05/2024 Blood pressure diastolic 80 mm Hg 07/05/2024 Oximetry 96 % 07/05/2024 Height 5 ft 9 in in 07/05/2024 Blood pressure systolic 136 mm Hg 07/05/2024 Weight 203 lbs 07/05/2024 BMI 29.97 kg/m2 07/05/2024 Encounters Encounter Location Date Provider Diagnosis Velvet BUSTAMANTE [address] [place] [address] [id number] 01/05/2024 Velvet Pittman Spinal stenosis, lum bar region with neurogenic claudication M48.062 ; Acute hematogenous osteomyelitis, other sites M86.08 ; Permanent atrial fibrillation I48.21 ; Other thrombophilia D68.69 ; Presence of cardiac pacemaker Z95.0 ; Personal history of transient ischemic attack (TIA), and cerebral infarction without residual deficits Z86.73 ; Anemia, unspecified D64.9 ; Aneurysm of the ascending aorta, without rupture I71.21 ; Essential (primary) hypertension I10 and Pressure ulcer of unspecified part of back, stage 1 L89.101 Velvet BUSTAMANTE [address] [place] [address] [id number] 02/06/2024 Velvet Pittman Acute hematogenous osteomyelitis, other sites M86.08 ; Spinal stenosis, lumbar region with neurogenic claudication M48.062 ; Permanent atrial fibrillation I48.21 ; Other thrombophilia D68.69 ; Presence of cardiac pacemaker Z95.0 ; Personal history of transient ischemic attack (TIA), and cerebral infarction without residual deficits Z86.73 ; Aneurysm of the ascending aorta, without rupture I71.21 ; Essential (primary) hypertension I10 and Other abnormal glucose R73.09 Velvet BUSTAMANTE [address] [place] [address] [id number] 04/15/2024 Velvet Pittman Essential (primary) hypertension I10 ; Prediabetes R73.03 ; Permanent atrial fibrillation I48.21 ; Other thrombophilia D68.69 ; Presence of cardiac pacemaker Z95.0 ; Aneurysm of the ascending aorta, without rupture I71.21 ; Abdominal aortic aneurysm, without rupture, unspecified I71.40 ; Spinal stenosis, lumbar region with neurogenic claudication M48.062 ; Acute hematogenous osteomyelitis, other sites M86.08 ; Personal history of transient ischemic attack (TIA), and cerebral infarction without residual deficits Z86.73 ; Other fecal abnormalities R19.5 and Encounter for immunization Z23 Velvet BUSTAMANTE [address] [place] [address] [id number] 05/16/2024 Velvet Pittman Hypokalemia E87.6 Velvet BUSTAMANTE [address] [id number] 06/06/2024 Velvet Pittman Hypokalemia E87.6 ; Essential (primary) hypertension I10 and Unspecified open wound of scalp, initial encounter S01.00XA Velvet Pittman MD [address] [id number] 06/20/2024 Velvet Pittman Mixed hyperlipidemia E78.2 ; Encounter for general adult medical examination without abnormal findings Z00.00 ; Vitamin D deficiency, unspecified E55.9 ; Encounter for screening for malignant neoplasm of colon Z12.11 ; Encounter for screening for malignant neoplasm of prostate Z12.5 ; Encounter for screening for cardiovascular disorders Z13.6 ; Encounter for antibody response examination Z01.84 ; Encounter for immunization Z23 and Encounter for screening for other viral diseases Z11.59 Velvet Pittman MD [address] [id number] 07/05/2024 Velvet Pittman Essential (primary) hypertension I10 ; Prediabetes R73.03 ; Permanent atrial fibrillation I48.21 ; Other thrombophilia D68.69 ; Presence of cardiac pacemaker Z95.0 and Alcohol use, unspecified, uncomplicated F10.90 Velvet Pittman MD [address] [id number] 01/02/2024 Velvet Pittman MD [address] [id number] 01/03/2024 Velvet Pittman MD [address] [id number] 01/09/2024 Velvet Pittman MD [address] [id number] 01/09/2024 Velvet Pittman MD [address] [id number] 01/10/2024 Velvet Pittman MD [address] [id number] 01/10/2024 Velvet Pittman MD [address] [id number] 01/11/2024 Velvet Pittman MD [address] [id number] 01/15/2024 Velvet Pittman MD [address] [id number] 01/22/2024 Velvet Pittman Permanent atrial fibrillation I48.21 Velvet Pittman MD [facility] [address] [place], [place] [id number] 01/23/2024 Velvet Pittman MD [facility] [address] [place], [place] [id number] 01/24/2024 Velvet Pittman Permanent atrial fibrillation I48.21 Velvet Pittman MD [facility] [address] [place], [place] [id number] 01/30/2024 Velvet Pittman MD PC [address] [place], [place] [id number] 02/06/2024 Velvet Pittman MD PC [address] [place], [place] [id number] 02/06/2024 Velvet Pittman Permanent atrial fibrillation I48.21 Velvet Pittman MD [facility] [address] [place] [address] [id number] 02/06/2024 Velvet Pittman MD PC [address] [place] [address] [id number] 03/07/2024 Velvet Pittman MD PC [address] [place] [address] [id number] 03/19/2024 Velvet Pittman MD PC [address] [facility] [address] [place] [address] [id number] 04/02/2024 Velvet Pittman Other fecal abnormalities R19.5 Velvet Pittman MD PC [address] [facility] [address] [place] [address] [id number] 04/02/2024 Velvet Pittman MD PC [address] [facility] [address] [place] [address] [id number] 05/09/2024 Velvet Pittman MD PC [address] [facility] [address] [place] [address] [id number] 05/28/2024 Velvet Pittman MD PC [address] [place] [address] [id number] 06/06/2024 Velvet Pittman Permanent atrial fibrillation I48.21 Velvet Pittman MD PC [address] [place] [address] [id number] 07/02/2024 Velvet Pittman MD PC [address] [facility] [address] [place] [address] [id number] 07/05/2024 Velvet Pittman Permanent atrial fibrillation I48.21 and Essential (primary) hypertension I10 Velvet Pittman MD PC [address] [id number] 07/05/2024 Velvet Pittman MD [address] [facility] [address] [place] [address] [id number] 07/12/2024 Velvet Pittman MD [address] [id number] 08/09/2024 Velvet Pittman Assessments Encounter Date Diagnosis (ICD Code) Assessment Notes Treatment Notes Treatment Clinical Notes Section Notes 01/05/2024 Acute hematogenous osteomyelitis, other sites (ICD-10 - M86.08) He developed a strep bacteremia quite sometime ago and developed an osteomyelitis most likely as result of this. He is completing antibiotic therapy. Options are either chronic antibiotic therapy versus watch and wait. At this point he ID feels that he will be cured therefore recommend sed rate today and sed rate in the near future to evaluate possibility for recurrent and need for chronic therapy 01/05/2024 Spinal stenosis, lumbar region with neurogenic claudication (ICD-10 - M48.062) He is status post surgical correction and hardware placement after he developed abscess. His abscess has been treated and he is completing antibiotic therapy. 01/22/2024 Permanent atrial fibrillation (ICD-10 - I48.21) 01/24/2024 Permanent atrial fibrillation (ICD-10 - I48.21) 02/06/2024 Acute hematogenous osteomyelitis, other sites (ICD-10 - M86.08) He has completed his therapy. He has follow-up. His sed rate was stable. Can recheck sed rate to verify stability. 02/06/2024 Spinal stenosis, lumbar region with neurogenic claudication (ICD-10 - M48.062) Stable postsurgical correction. Has follow-up with surgery pending in the near future. 02/06/2024 Permanent atrial fibrillation (ICD-10 - I48.21) 04/02/2024 Other fecal abnormalities (ICD-10 - R19.5) 04/15/2024 Essential (primary) hypertension (ICD-10 - I10) Not ideal. At this point recommend change in medical therapy to improve blood pressure control. He may not have adequate control with alpha blockade and recommend switching to HERACLIO inhibition first and then if needed resume alpha blockade 04/15/2024 Prediabetes (ICD-10 - R73.03) Stable at present. Recommend exercise which she will plan to do when he goes to [place] with golfing. 05/16/2024 Hypokalemia (ICD-10 - E87.6) He had gotten up in [place] and had weakness. He could not stand on his legs. He had a syncopal event which was probably vasovagal. When he came to he had low blood pressure and low heart rate which would be consistent with this. He was brought to the emergency room where he was found to have hypokalemia. He was treated for this and is on potassium replacement and is doing okay. He has had no diarrhea or other medications that would cause hypokalemia. His potassium had been okay over the last 3 to 4 months. This may be either a complication of his diuretic based antihypertensive or there may be another issue such as impaired adrenal function. Can recheck labs and continue potassium at the present time until etiology has been determined. 06/06/2024 Hypokalemia (ICD-10 - E87.6) He had developed hypokalemia in [place]. Etiology was undetermined when he was there. He had no hypokalemia prior to his trip to [place]. He had no issues in [place] such as diarrhea or nausea and vomiting therefore it is unclear what the etiology of the hypokalemia had been. His TT KG is 14 and therefore unlikely to be hypokalemia due to renal wasting or adrenal based hyperaldosteronism. This may be related to his hydrochlorothiazide. Recommend discontinue hydrochlorothiazide and then discontinue potassium a few days later and then recheck labs. 06/06/2024 Essential (primary) hypertension (ICD-10 - I10) Stable at present. C an reevaluate blood pressure control off hydrochlorothiazide 06/06/2024 Permanent atrial fibrillation (ICD-10 - I48.21) 06/20/2024 Mixed hyperlipidemia (ICD-10 - E78.2) Can check level to verify adequate control as comorbidity 07/05/2024 Essential (primary) hypertension (ICD-10 - I10) His blood pressure i s still elevated. This is despite medical therapy. There may be an environmental issue. He says he occasionally has more wine than he should. Therefore it is possible some of this may be alcohol related. Can check degree of alcohol consumption with labs and if significant then this may be the reason for his hypertension. 07/05/2024 Prediabetes (ICD-10 - R73.03) Stable in the past. Recheck status to verify that there is no progression. 07/05/2024 Permanent atrial fibrillation (ICD-10 - I48.21) 07/05/2024 Essential (primary) hypertension (ICD-10 - I10) 07/05/2024 Permanent atrial fibrillation (ICD-10 - I48.21) Remains rate controlled with pacemaker dependent. He remains anticoagulated. 06/20/2024 Encounter for general adult medical examination without abnormal findings (ICD-10 - Z00.00) General healthcare up-to-date. Check routine labs. His is his designated surrogate decision maker. 06/20/2024 Vitamin D deficiency, unspecified (ICD-10 - E55.9) Check level to verif y that there is no deficiency 06/06/2024 Unspecified open wound of scalp, initial encounter (ICD-10 - S01.00XA) For margarita removed from scalp without any complications. There was no bleeding and there was no dehiscence. The wound was cleaned and dried. 04/15/2024 Permanent atrial fibrillation (ICD-10 - I48.21) Remains rate controlled with pacemaker dependent. He remains anticoagulated. 02/06/2024 Permanent atrial fibrillation (ICD-10 - I48.21) Remains rate controlled with pacemaker dependent. He remains anticoagulated. 01/05/2024 Permanent atrial fibrillation (ICD-10 - I48.21) He remains rate controlled and pacemaker dependent. He is anticoagulated but he would benefit from switching from warfarin to Eliquis to minimize drug-drug interactions for future medical therapy as well as improved efficacy with the lowered bleeding risk. 01/05/2024 Other thrombophilia (ICD-10 - D68.69) His [id number] sco re is at least 5. Based on this he is at increased risk for thromboembolic event and recommend chronic anticoagulation. 02/06/2024 Other thrombophilia (ICD-10 - D68.69) His [id number] sco re is at least 5. Based on this he is at increased risk for thromboembolic event and recommend chronic anticoagulation. 04/15/2024 Other thrombophilia (ICD-10 - D68.69) His ZMB0DH1-RVEo sco re is at least 5. Based on this he is at increased risk for thromboembolic event and recommend chronic anticoagulation. 06/20/2024 Encounter for screening for malignant neoplasm of colon (ICD-10 - Z12.11) Up-to-date on colon cancer screening. He has a positive Cologuard but has had evaluation for colonoscopy but is considered too high risk to proceed with this procedure. 07/05/2024 Other thrombophilia (ICD-10 - D68.69) His MPP6MS2-MWNk sco re is at least 5. Based on this he is at increased risk for thromboembolic event and recommend chronic anticoagulation. 07/05/2024 Presence of cardiac pacemaker (ICD-10 - Z95.0) Stable and unchanged 06/20/2024 Encounter for screening for malignant neoplasm of prostate (ICD-10 - Z12.5) Can check PSA has prostate cancer screening realizing the limitation of this test as a screening test 04/15/2024 Presence of cardiac pacemaker (ICD-10 - Z95.0) Stable and unchanged 02/06/2024 Presence of cardiac pacemaker (ICD-10 - Z95.0) Stable and unchanged 01/05/2024 Presence of cardiac pacemaker (ICD-10 - Z95.0) Stable and unchanged 01/05/2024 Personal history of transient ischemic attack (TIA), and cerebral infarction without residual deficits (ICD-10 - Z86.73) He had a TIA during the hospitalization. This may have been due to the fact that he was off anticoagulation for his back surgery. He is back on anticoagulation now. 02/06/2024 Personal history of transient ischemic attack (TIA), and cerebral infarction without residual deficits (ICD-10 - Z86.73) He had another transient episode of loss of awareness. He had been hospitalized with negative evaluation. Has an EEG pending but I do not think this will be the main cause. It may need to have completed the EEG to rule out seizure disorder but I think he may have had another TIA based on atrial fibrillation. Await completion of neurologic evaluation 04/15/2024 Aneurysm of the ascending aorta, without rupture (ICD-10 - I71.21) He also has history of aortic aneurysm and has had serial echoes with stability. 06/20/2024 Encounter for screening for cardiovascular disorders (ICD-10 - Z13.6) Blood pressure is Elevated. Can check for comorbidity of hyperlipidemia and hyperglycemia to further assess risk. 07/05/2024 Alcohol use, unspecified, uncomplicated (ICD-10 - F10.90) As above. Can evalua te degree of consumption. 06/20/2024 Encounter for antibody response examination (ICD-10 - Z01.84) He would be consider ed immune to rubeola by virtue of his age 0904/15/2024 Abdominal aortic aneurysm, without rupture, unspecified (ICD-10 - I71.40) He was noted to have a 3.2 cm aortic aneurysm on an x-ray that was done. Recommend ultrasound to correlate and verify size 02/06/2024 Aneurysm of the ascending aorta, without rupture (ICD-10 - I71.21) He also has history of aortic aneurysm and has had serial echoes with stability. He does not recall the exact size 01/05/2024 Anemia, unspecified (ICD-10 - D64.9) He was noted to have anemia of undetermined etiology during the hospitalization. Can recheck labs to see if there is any myelodysplasia. In reviewing his records appears he has an high MCV related anemia. 01/05/2024 Aneurysm of the ascending aorta, without rupture (ICD-10 - I71.21) He also has history of aortic aneurysm and has had serial echoes with stability. He does not recall the exact size 02/06/2024 Essential (primary) hypertension (ICD-10 - I10) Improved with curren t medical therapy. His blood pressure has been high in the hospital. At this point his blood pressure is still not ideal. He should be 120 or less. Can adjust medical therapy once other issues have stabilized. 04/15/2024 Spinal stenosis, lumbar region with neurogenic claudication (ICD-10 - M48.062) Stable postsurgical correction. He is no longer in a wheelchair. He is using a cane now. 06/20/2024 Encounter for immunization (ICD-10 - Z23) Vaccines up to date 06/20/2024 Encounter for screening for other viral diseases (ICD-10 - Z11.59) Can screen for hepatitis C as per general recommendation 04/15/2024 Acute hematogenous osteomyelitis, other sites (ICD-10 - M86.08) Has had follow-up [facility] orthopedic infectious disease and there is no evidence of recurrence. His sed rate is elevated and this is probably due to his colonic pathology rather than infectious etiology 02/06/2024 Other abnormal glucose (ICD-10 - R73.09) His labs were review ed and his glucose was elevated. He says it has always been elevated. Can recheck labs to verify there is no prediabetes 01/05/2024 Essential (primary) hypertension (ICD-10 - I10) He has had lifelong hypertension. Prior to his hospitalization his blood pressure is reported to have been okay but he was started on amlodipine during hospitalization. He now has edema which may be a side effect of the amlodipine and given the fact that he had adequate control of his hypertension prior to surgery he may be able to discontinue amlodipine and reevaluate status 01/05/2024 Pressure ulcer of unspecified part of back, stage 1 (ICD-10 - L89.101) These are probably pressure ulcers from having been on his back or his brace. Recommend DuoDERM or some protective material to help minimize pressure 04/15/2024 Personal history of transient ischemic attack (TIA), and cerebral infarction without residual deficits (ICD-10 - Z86.73) Stable at present. Anson coon had his EEG and EEG was unremarkable. At the present time it is unlikely the ED had a seizure and may have had a TIA based on atrial fibrillation. 04/15/2024 Other fecal abnormalities (ICD-10 - R19.5) Still awaiting evaluation for colonoscopy. Given his high sed rate there may be an inflammatory or premalignant lesion that needs further evaluation 04/15/2024 Encounter for immunization (ICD-10 - Z23) 01/05/2024 Other This note was created with voice dictation recognition software and may contain errors of grammar and syntax. Also labs were reviewed with patient. 02/06/2024 Other This note was created with voice dictation recognition software and may contain errors of grammar and syntax. Also labs were reviewed with patient. 04/15/2024 Other This note was created with voice dictation recognition software and may contain errors of grammar and syntax. Also labs were reviewed with patient. 05/16/2024 Other This telehealt h visit was used in lieu of a ainf-yv-wbzs visit due to the Declaration of a State of Emergency, Executive order 591, and in accordance with All Provider Bulletin 289: [facility] Coverage and Reimbursement Policy for Services. This telehealth visit was performed with patients consent. This note was created with voice dictation recognition software and may contain errors of grammar and syntax. 06/06/2024 Other This note was created with voice dictation recognition software and may contain errors of grammar and syntax. Also labs were reviewed with patient. 06/20/2024 Other This note was created with voice dictation recognition software and may contain errors of grammar and syntax. Also labs were reviewed with patient. 07/05/2024 Other This note was created with voice dictation recognition software and may contain errors of grammar and syntax. Also labs were reviewed with patient. Plan Of Treatment Next Appt Details Provider Name:Velvet Pittman , 11/22/2024 09:15:00 AM, [address] [place] [address], [phone], Provider Name:Velvet Pittman , 06/30/2025 11:00:00 AM, [address] [place] [address], [phone], Insurance Providers Payer Name Payer Address Payer Phone Subscriber Number Group Number Insured Name Patient Relationship to Insured Coverage Start Date Coverage End Date MEDICARE [address] [facility] [place] [phone] [id number] Josh Germain Self - patient is the insured BCBS MEDEX [address] [place] [address] [phone] [id number] Josh Germain Self - patient is the insured Medical (General) History Medical History History ICD Code hypertension Afib osteomyelitis vitamin d deficiency Surgical History Surgery Date(Month/Year) pace maker 2019 back surgery 12/2024 Hospitalization History Reason Date(Month/Year) spinal instability dragan lumbar fusion lumbar stenosis w/ neurogenic claudicati on osteomyelitis/ back abscess 11/2023
--- OUTSIDE RECORDS SUMMARY | 2024-11-11 17:16 | XMS_ITS | Clinical Summary ---
Author Organization [facility] Address [address] [place] [id number] Care Team Providers Care Aquarist Name Role Phone Jhonatan Calderon RN Unavailable Velvet Pittman MD Primary Care Provider [phone] Allergies Active Allergy Reactions Criticality Noted Date Comments Bacitracin Itching Low 05/08/2024 itx Sulfamethoxazole-Trimeth oprim Rash/Dermatitis Low 11/18/2023 Hydromorphone Other (See Comments) Medium 12/17/2023 Aggression and confusion per Morphine Delirium/Confusion/ Psychosis Low 11/22/2023 Per , makes patient loopy Medications acetaminophen (TYLENOL) 325 MG tabletIndication s:Lumbar stenosis without neurogenic claudication Take 3 tablets (975 mg total) by mouth every 8 (eight) hours around the clock. 4 Active atorvastatin (LIPITOR) 20 MG tabletIndication s:Abscess in epidural space of lumbar spine Take 1 tablet (20 mg total) by mouth nightly. 30 tablet 4 Active bisacodyl (DULCOLAX) 10 MG suppositoryIndic ations:Abscess in epidural space of lumbar spine Insert 1 suppository (10 mg total) into the rectum daily as needed for constipation. 4 Active cyanocobalamin (VITAMIN B12) 1000 MCG tabletIndication s:Abscess in epidural space of lumbar spine Take 1 tablet (1,000 mcg total) by mouth daily. 4 Active ferrous sulfate 325 (65 FE) MG EC tabletIndication s:Lumbar stenosis without neurogenic claudication Take 1 tablet (325 mg total) by mouth daily. Take 2 hours before or 4 hours after acid reducers. 4 Active metoPROLOL SUCCINATE (TOPROL-XL) 100 MG 24 hr tabletIndication s:Lumbar stenosis without neurogenic claudication Take 1 tablet (100 mg total) by mouth daily. 30 tablet 4 Active prazosin (MINIPRESS) 2 MG capsuleIndicatio ns:Lumbar stenosis without neurogenic claudication Take 1 capsule (2 mg total) by mouth nightly. 30 capsule 4 Active calcium carbonate (TUMS) 500 MG chewable tabletIndication s:Lumbar stenosis without neurogenic claudication Chew 2 tablets (1,000 mg total) 2 times daily (every 12 hours) as needed for indigestion or heartburn. 4 Active cholecalciferol (CHOLECALCIFEROL ) 25 MCG (1000 UT) tabletIndication s:Lumbar stenosis without neurogenic claudication Take 1 tablet (1,000 Units total) by mouth daily. 4 Active docusate sodium (COLACE) 100 MG capsuleIndicatio ns:Lumbar stenosis without neurogenic claudication Take 1 capsule (100 mg total) by mouth 2 (two) times a day. 4 Active hydroCHLOROthiaz gill (HYDRODIURIL) 12.5 MG tabletIndication s:Lumbar stenosis without neurogenic claudication Take 1 tablet (12.5 mg total) by mouth daily. 30 tablet 4 Active Additional Information Patient taking differently: 25 mgOral Daily, Reported on 02/07/2024 miconazole (ZEASORB-AF) 2 % powderIndication s:Lumbar stenosis without neurogenic claudication Apply topically 2 (two) times a day. 43 g 4 Active polyethylene glycol 17 g packetIndication s:Lumbar stenosis without neurogenic claudication Take 1 packet (17 g total) by mouth daily as needed for constipation. 4 Active QUEtiapine (SEROquel) 25 MG tabletIndication s:Lumbar stenosis without neurogenic claudication Take 0.5 tablets (12.5 mg total) by mouth nightly as needed (anxiety, difficulty sleeping). 15 tablet 4 Active senna (SENOKOT) 8.6 MG Tab tabletIndication s:Lumbar stenosis without neurogenic claudication Take 2 tablets by mouth nightly. 4 Active pregabalin (LYRICA) 75 MG capsuleIndicatio ns:Lumbar stenosis without neurogenic claudication Take 1 capsule (75 mg total) by mouth 2 (two) times a day. Do not start before January 03, 2024. 60 capsule 4 Active docusate sodium (COLACE) 100 MG capsuleIndicatio ns:Lumbar stenosis without neurogenic claudication Take 1 capsule (100 mg total) by mouth 3 times a day. 90 capsule 4 Active amLODIPine (NORVASC) 5 MG tabletIndication s:Lumbar stenosis without neurogenic claudication Take 1 tablet (5 mg total) by mouth every evening. 30 tablet 4 Active DULoxetine (CYMBALTA) 30 MG capsuleIndicatio ns:Lumbar stenosis without neurogenic claudication Take 1 capsule (30 mg total) by mouth daily. Do not start before January 11, 2024. 30 capsule 4 Active Eliquis 5 MG tablet 4 Active potassium chloride (K-TAB) 20 MEQ CR tablet TAKE 1 TABLET BY MOUTH EVERY DAY WITH FOOD FOR 30 DAYS 4 Active ramipril (ALTACE) 5 MG capsule Take 1 capsule (5 mg total) by mouth daily. Active thiamine (VITAMIN B-1) 50 MG tablet Take 1 tablet (50 mg total) by mouth daily. Active Active Problems Problem Noted Date Diagnosed Date Lumbar stenosis without neurogenic claudication 12/12/2023 Hypertension 12/08/2023 Atrial fibrillation 12/08/2023 Vitamin D deficiency 12/08/2023 S/P lumbar fusion 12/06/2023 Normocytic anemia 11/29/2023 Hyponatremia 11/29/2023 Spinal instability of lumbar region 11/22/2023 Abscess in epidural space of lumbar spine 2023 Fracture dislocation of lumbar spine 11/22/2023 Osteomyelitis 11/18/2023 Back pain 11/18/2023 Lumbar burst fracture 11/18/2023 Resolved Problems Problem Noted Date Diagnosed Date Resolved Date Bacteremia 11/29/2023 12/06/2023 Thrombocytopenia 11/29/2023 12/06/2023 Hypophosphatemia 11/29/2023 12/06/2023 Encephalopathy acute 11/19/2023 024 Encounters Date Type Department Care Team Description 11/11/2024 Emergency [facility] Emergency Department [address] [place] [address] 10/14/2024 Scanned Document [facility] Physical Therapy, Scan 09/20/2024 Scanned Document [facility] Physical Therapy, Scan from Last 3 Months Social History Tobacco Use Types Packs/Day Years Used Date Smoking Tobacco: Never Smokeless Tobacco: Never Tobacco Cessation:Counseling Given: Not Answered Alcohol Use Standard Drinks/Week Comments Yes 0 (1 standard drink = 0.6 oz pur e alcohol) social [facility] Utilities Answer Date Recorded In the past 12 months has th e electric, gas, oil, or water company threatened to shut off services in your [...] place to sleep or slept in a [place] (including now)? No 11/19/2023 Sex and Gender Information Value Date Recorded Sex Assigned at Male 11/18/2023 7:54 PM EDT Legal Sex Male 3:18 PM EDT Gender Identity Male 11/18/2023 7:54 PM EDT Sexual Orientation Heterosexual (straight) 11/17 7:54 PM EDT Last Filed Vital Signs Vital Sign Reading Time Taken Comments Blood Pressure 150/77 06/19/2024 10:22 AM EST PA notified. Pulse 73 06/19/2024 10:22 AM EST Temperature 36.3 ??C (97.3 ??F) 06/19/2024 1 0:22 AM EST Respiratory Rate 13 04/10/2024 1:04 PM EDT Oxygen Saturation 97% 06/19/2024 10: 22 AM EST Inhaled Oxygen Concentration - - Weight 91.2 kg (201 lb) 06/19/2024 10:2 2 AM EST Height 185.4 cm (6' 0.99 ) 06/19/2024 1 0:22 AM EST Verbal Given. Body Mass Index 26.52 06/19/2024 10:22 AM EST Plan of Treatment Upcoming Encounters Date Type Department Care Team ([facility] Contact Info) Description 12/24/2024 10:30 AM EDT Office Visit [facility] [id number] [address] [place] [id number] Nomi Barreto, RUBIN [address] [phone] Health Maintenance Due Date Last Done Comments Hepatitis C Virus Screening 1950 DTaP/Tdap/Td Vaccines (1 - Tdap) 1968 Pneumococcal Vaccines 50+ (1 of 2 - PCV) 1968 Colonoscopy 1994 Zoster (Shingles) Vaccine (1 of 2) 10/01/1999 Influenza Vaccine 02/15/2024 04/17/2023, , 04/05/2021, Additional history exists COVID-19 Vaccine (2023- season) 2024 RSV Vaccine 60 years and older and Patients (1 - 1-dose 75+ series) 2024 Hepatitis B Vaccines Aged Out No long er eligible based on patient's age to complete this topic Medical Devices Implanted Type Area Paper Production Engineer Device Identifier Shelf Expiration Date Model / Serial / Lot [id number] Cage Spinal 51-71mm 16mm X-Mesh 0d Sm Posterior Expand - [id number] Implanted:Qty: 1 on 11/27/2023 by Dewey Price MD at [facility] Cage N/A: Spine Lumbar DEPUY JOINT RECONSTRUCTION - A [id number] / / .190 Checo Spinal Light Grn 500mm 5.5/3.5mm Matrix Taper Ti X Hard - [id number] Implanted:Qty: 1 on 11/27/2023 by Dewey Price MD at [facility] Nail/Checo N/A: Spine Lumbar DEPUY JOINT RECONSTRUCTION - A 633.190 / / .364 Transconnector Checo 62-90mm 5.5mm 6mm Matrix 8 Spine Pdcl - [id number] Implanted:Qty: 1 on 11/27/2023 by Dewey Price MD at [facility] Nail/Checo N/A: Spine Lumbar DEPUY JOINT RECONSTRUCTION - A 633.364 / / 633.347 Transconnector Checo 47-62mm 5.5mm 6mm Matrix 7 Spine Pdcl - [id number] Implanted:Qty: 1 on 11/27/2023 by Dewey Price MD at [facility] Nail/Checo N/A: Spine Lumbar DEPUY JOINT RECONSTRUCTION - A 633.347 / / [id number] Screw Bone Spine Jacky Vpr Xpdm 45mm Ti 8mm Pa Fix Angle - [id number] Implanted:Qty: 2 on 11/27/2023 by Dewey Price MD at [facility] Spine N/A: Spine Lumbar DEPUY JOINT RECONSTRUCTION - A [id number] / / [id number] Screw Set Ti Spine 1 Inner Vpr Nonst 5.5 Mm Checo - [id number] Implanted:Qty: 10 on 11/27/2023 by Dewey Price MD at [facility] Spine N/A: Spine Lumbar DEPUY JOINT RECONSTRUCTION - A [id number] / / [id number] Screw Bone Spine Jacky Vpr Xpdm 50mm Ti 8mm Pa Fix Angle - [id number] Implanted:Qty: 8 on 11/27/2023 by Dewey Price MD at [facility] Spine N/A: Spine Lumbar DEPUY JOINT RECONSTRUCTION - A [id number] / / [id number] Screw Bone Spine Jacky 55mm Ti 8mm Pa Fix Angle Fenestrate - [id number] Implanted:Qty: 2 on 11/27/2023 by Dewey Price MD at [facility] Spine N/A: Spine Lumbar DEPUY JOINT RECONSTRUCTION - A [id number] / / [id number] Graft Bone Osteoamp Xl Algrf Cmpr Sponge 59s68y4an - [id number] Implanted:Qty: 1 on 11/27/2023 by Dewey Price MD at [facility] Tissue N/A: Back [employer] 02/01/2028 [id number] / [id number] / [id number] Patch Dural 3x1in Thk3.5mm Crnmxf Drmtrx-Onlay Plus Npor - [id number] Implanted:Qty: 1 on 11/27/2023 by Dewey Price MD at [facility] Tissue N/A: Spine Lumbar [employer]ITA [employer] - DIV STRY [id number] 03/16/2026 [id number] / / [id number] Filler Bone Void 10cc Dbx Algrf Frzdr Putty - [id number] Implanted:Qty: 1 on 11/27/2023 by Dewey Price MD at [facility] Void Filler N/A: Back MUSCULOSKELETAL TRANSPLANT FOU 10/04/2025 [id number] / [id number] / [id number] Filler Bone Void 10cc Dbx Algrf Frzdr Putty - [id number] Implanted:Qty: 1 on 11/27/2023 by Dewey Price MD at [facility] Void Filler N/A: Back MUSCULOSKELETAL TRANSPLANT FOU 10/05/2025 [id number] / [id number] / 07.801.100.99s Filler Bone Void [id number] Btcp Plmr Chrns Rsrb Strp Sterl - [id number] Implanted:Qty: 1 on 11/27/2023 by Dewey Price MD at [facility] Void Filler N/A: Back DEPUY JOINT RECONSTRUCTION - A [id number] 09/13/2024 07.801.100 .99S / / [id number] 07.801.100.99s Filler Bone Void [id number] Btcp Plmr Chrns Rsrb Strp Sterl - [id number] Implanted:Qty: 1 on 11/27/2023 by Dewey Price MD at [facility] Void Filler N/A: Back DEPUY JOINT RECONSTRUCTION - A [id number] 09/13/2024 07.801.100 .99S / / [id number] Filler Bone Void 10cc Dbx Algrf Frzdr Putty - [id number] Implanted:Qty: 1 on 11/27/2023 by Dewey Price MD at [facility] Void Filler N/A: Back MUSCULOSKELETAL TRANSPLANT FOU 10/05/2025 [id number] / [id number] / Insurance MEDICARE PART A & B [facility] Advance Directives * Full Code (Latest Code Status on File) Date Activated Date Inactivated Comments 12/06/2023 3:56 PM * Full Code Date Activated Date Inactivated Comments 11/19/2023 12:00 AM 12/06/2023 3:56 PM Healthcare Agents on File Name Relationship Healthcare Agent Mariola chavez Communication Paige Germain Spouse 4. Next of Kin ( Spouse, Adult Child, Parent, Adult Sibling, Grandparent) [email or web address] Care Teams Aquarist Relationship Specialty Start Date End Date Velvet Pittman MD [address] [id number] PCP - General 01/02/24 Jhonatan Calderon, RN [address] [place] [phone] Nurse Navigator Surgery, Neurosurgery 11/20/23
[2024-11-13 13:19] LABS: INR Whole Blood 1.4 (0.9-1.1); Prothrombin Time Whole Blood 17.1 sec (11.1-13.5)
== END 2024-11-11 17:15 | disposition short-term general hospital (02) ==
PROVIDERS: Emergency Provider Emergency Medicine Emergency Medical Services; PCP Internal Medicine
DX: I62.9 Nontraumatic intracranial hemorrhage, unspecified (principal); R47.01 Aphasia; G81.91 Hemiplegia, unspecified affecting right dominant side; R29.707 NIHSS score 7; I10 Essential (primary) hypertension; I48.20 Chronic atrial fibrillation, unspecified; I71.20 Thoracic aortic aneurysm, without rupture, unspecified; Z95.0 Presence of cardiac pacemaker; Z79.01 Long term (current) use of anticoagulants; Z79.899 Other long term (current) drug therapy
CPT/HCPCS: 36415; 70450; 70496; 70498; 80048; 80061; 80076; 82947; 84484; 85025; 85610; 85730; 93005; 96365; 96366; 96375; 99285; J2404; J7168; Q9967

== ENCOUNTER → 2024-11-11 13:23 | Outpatient (BNV) | payer MEDICARE, SELFPAY | PROVIDERS: Emergency Provider Emergency Medicine Emergency Medical Services; Visit Provider Radiology Diagnostic Radiology | DX: I61.0 Nontraumatic intracerebral hemorrhage in hemisphere, subcortical (principal); I65.23 Occlusion and stenosis of bilateral carotid arteries; I65.03 Occlusion and stenosis of bilateral vertebral arteries; I71.21 Aneurysm of the ascending aorta, without rupture; Q25.46 Tortuous aortic arch; I67.82 Cerebral ischemia | CPT/HCPCS: 70450; 70496; 70498 ==

== ENCOUNTER → 2024-11-11 13:25 | Outpatient (BNV) | payer MEDICARE, SELFPAY | PROVIDERS: Emergency Provider Emergency Medicine Emergency Medical Services; PCP Internal Medicine; Visit Provider Internal Medicine Cardiovascular Disease | DX: I48.91 Unspecified atrial fibrillation (principal) | CPT/HCPCS: 93010 ==

== ENCOUNTER → 2025-06-04 13:30 | Outpatient (REF) | payer MEDICARE, SELFPAY ==
--- OUTSIDE RECORDS SUMMARY | 2024-12-24 09:30 | XMS_ITS ---
Author Organization Velvet Pittman MD Address [address] [place] [phone] Care Team Providers Care Lead Database Developer Name Role Phone Velvet Pittman Primary Care Provider REASON FOR VISIT [facility]. [place] 12/21/24 Encounters Encounter Location Date Provider Diagnosis Velvet Pittman MD [address] [place] [address] [place] [phone] 12/24/2024 Velvet Pittman Plan Of Treatment Next Appt Details Provider Name:Velvet Pittman , 06/09/2025 10:30:00 AM, [address] [place] [address], [phone], Provider Name:Velvet Pittman , 06/30/2025 11:00:00 AM, [address] [place] [address], [phone], Progress Notes * Josh RAINDOB:1950 (74 yo M)Acc No.[id number]:12/24/2024 Progress Note Patient: Josh SEAMAN Provider: Martinez Pittman MD :1950 A ge:74 Y S ex:Male Date:12/24/2024 Address:[address] [place] [address] [id number] Subjective: * Chief Complaints: * 1 . [facility] [place] 12/21/24. * Medical History: Objective: * Vitals: Past Vitals:* 07/05/2024 Temp:96.2F, HR:64/min, BP:Si tting Right Arm: 136/80mm Hg, Wt:203lbs, BMI:29.97Index, Ht:5 ft 9 in, Oxygen sat %:96% * 06/20/2024 Temp:96.7F, HR:60/min, Wt:20 5lbs, BMI:30.27Index, Ht:5 ft 9 in, Oxygen sat %:98% * 06/06/2024 BP:Sitting Right Arm: 122/74 mm Hg, Wt:201lbs, BMI:29.68Index, Ht:5 ft 9 in Assessment: Plan: * Treatment: * Images: Billing Information: * Visit Code: * Procedure Codes: * Electronic signature of Orquidea Pittman MD on 06/05/2025 at 01:30 AM EST Sign off status: Pending * Provider: Martinez Pittman MD Date: 0 12/24/2024 Generated for Osvaldo yeung/Pam/Simon on: 1 08/05/2024 01:30 AM EST
--- NOTE | 2025-06-04 13:33 | CA_ITS ---
Transthoracic Echocardiogram Patient (Last, First, Middle): Josh Germain W Gender: Male Date of : 1950 Age: 74 Procedure Date: 06/04/2025 Procedure Type: Transthoracic Echocardiogram Location: OP Height: 185.42 cm Weight: 90.72 kg BSA: 2.15 m2 Heart Rate: 50 bpm BP: 117 / 68 mmHg Toolsmith: SB Referring MD: Trever Hathaway MD Symptoms: I71.2 - Thoracic aortic aneurysm, without rupture Study Quality: Adequate w contrast ECG Rhythm: Atrial Fibrillation/ V paced Conclusions: - The left ventricular systolic function is normal. The calculated ejection fraction is 64% by biplane method. - There is moderate calcification of the aortic valve. - There is mild dilatation of the ascending aorta measuring 4.50 cm. Findings Procedure Information Contrast agent, definity, is being given per protocol without apparent complications. Left Ventricle Mildly increased left ventricular cavity size. The left ventricular systolic function is normal. The calculated ejection fraction is 64% by biplane method. There is no evidence of regional wall motion abnormalities. Diastolic function is indeterminate on the basis of available data. There is severe septal and severe basal asymmetric hypertrophy. Right Ventricle There is moderately decreased right ventricular systolic function. There is a pacemaker wire seen in the right ventricle. Atria The left atrium is severely dilated. The right atrium was not well visualized. Aortic Valve There is moderate calcification of the aortic valve. There is no aortic valve stenosis. There is no aortic valve regurgitation. Mitral Valve There is mild mitral annular calcification. There is no mitral valve regurgitation. There is no mitral valve stenosis. Pulmonic Valve The pulmonic valve is likely normal. Tricuspid Valve There is trace tricuspid valve regurgitation. There is no evidence of pulmonary hypertension. Great Vessels There is mild dilatation of the ascending aorta measuring 4.50 cm. Venous The inferior vena cava is normal in size and collapses greater than 50% with inspiration. Pericardium/Pleural There is no evidence of pericardial effusion. Prior Study Comparison No significant change compared to prior study dated: 07/19/2023. Measurements M-Mode Liner Measurements Normals - Women/Men Ao Root: 4.20 2.0-3.8 cm 2D Linear Measurements IVSd: 0.99 0.6-0.9/0.6-1.0 cm LVIDd: 5.52 3.9-5.3/4.2-5.9 cm LVIDd Index: 2.57 2.4-3.2/2.2-3.1 cm/m2 LVIDs: 4.22 2.0-3.6 cm LVPWd: 0.94 0.7-1.1 cm LA Diam: 4.90 2.7-3.8/3.0-4.0 cm LAIDs Index: 2.28 1.5-2.3 cm/m2 LV Mass: 254.42 67-162/88-224 g LV Mass Index: 118.33 43-95/49-115 g/m2 LVOT Diam: 2.40 3.0+(-)1.3 cm 2D Systolic Function EF 4C: 59.00 >55% EF 2C: 68.30 >55% EF BiP: 63.50 >55% Mitral Valve MV Pk E: 0.69 MV Decel Time: 181.00 E'Lateral: 9.67 E'Medial: 6.57 E/E' Med: 10.60 E/E' Lat: 7.20 PHT: 60.00 MVA PHT: 3.67 Decel [place]: 3.74 Aortic Valve AoV Pk José Luis: 1.10 AoV Mn José Luis: 0.81 AoV VTI: 0.24 AoV Pk Grad: 5.00 Aov Mn Grad: 3.00 IKER Cont.VTI: 2.42 LVOT LVOT Pk José Luis: 0.57 LVOT Mn José Luis: 0.40 LVOT VTI: 0.13 LVOT Pk Grad: 1.00 LVOT Mn Grad: 1.00 LVOT Diam: 2.40 LVOT Area: 4.52 Diastolic Function MV Pk E: 0.69 E'Medial: 6.57 E/E' Med: 10.60 E' Laterial: 9.67 E/E' Lat: 7.20 Right Ventricle TAPSE (mm): 11.00 TVS' José Luis: 8.55 Tricuspid Valve TR Pk José Luis: 2.05 TR Pk Grad: 17.00 RA Press: 3.00 RVSP: 20.00 Great Vessels Aorta Ao Root-MM: 4.20 2.0-3.7 cm Sinus of Valsalva: 4.10 2.0-3.5 cm Ao Asc: 4.50 2.1-3.4 cm Ao Arch: 3.50 Pulmonary Valve PV Pk José Luis: 0.64 Peak PV Grad: 2.00 Updated in Other Vendor System with Status of Final Demian Haines MD electronically signed on 06/05/2025 11:34:29 AM with status of Final
--- OUTSIDE RECORDS SUMMARY | 2025-06-05 01:29 | XMS_ITS | Encounter Summary ---
Author Organization [facility] Address [address] [place] [id number] Care Team Providers Care Appliance Tester Name Role Phone Velvet Pittman MD Primary Care Provider [phone] Alexandria Segura PT Unavailable [phone] Encounter Details Date Type Department Care Team (Late st Contact Info) Description 12/25/2024 Scanned Document [facility] [place] [address] [place] [id number] [id number] Social History Tobacco Use Types Packs/Day Years Used Date Smoking Tobacco: Never Smokeless Tobacco: Never Alcohol Use Standard Drinks/Week Comments Yes 0 (1 standard drink = 0.6 oz pur e alcohol) social [facility] Utilities Answer Date Recorded In the past 12 months has [employer], gas, oil, or water company threatened to shut off services in your home? No 11/12/2024 AUDIT-C Answer Date Recorded Q1: How often do you have a drink containing alcohol? 4 or more times a week 11/22/2024 Q2: How many drinks containi ng alcohol do you have on a typical day when you are drinking? 3 or 4 Q3: How often do you have si x or more drinks on one occasion? Never 11/22/2024 PHQ-2 Answer Date Recorded PHQ-2 Total Score 0 12/29/2024 Hunger Vital Sign Answer Date Recorded Within the past 12 months, y ou worried that your food would run out before you got the money to buy more. Never true 11/13/19 25 Within the past 12 months, t he food you bought just didn't last and you didn't have money to get more. Never true 11/12/2024 PRAPARE - Transportation Answer Date Re corded In the past 12 months, has l ack of transportation kept you from medical appointments or from getting medications? No 12/15 In the past 12 months, has l ack of transportation kept you from meetings, work, or from getting things needed for daily living? No 12/27/2024 Housing Stability Vital Sign Answer Jimmie e [...] place to sleep or slept in a retirement (including now)? No 11/19/2023 Housing Stability Vital Sign Answer Jimmie e Recorded In the last 12 months, was t here a time when you were not able to pay the mortgage or rent on time? No 11/12/2024 In the past 12 months, how m any times have you moved where you were living? 0 11/12/2024 At any time in the past 12 m [facility], were you homeless or living in a retirement (including now)? No 11/12/2024 Sex and Gender Information Value Date Recorded Sex Assigned at Male 11/18/2023 7:54 PM EDT Legal Sex Male 3:18 PM EDT Gender Identity Male 11/18/2023 7:54 PM EDT Sexual Orientation Heterosexual (straight) 11/17 7:54 PM EDT documented as of this encounter Plan of Treatment Not on file documented as of this encounter Visit Diagnoses Not on filedocumented in this encounter Care Teams Appliance Tester Relationship Specialty Start Date End Date Velvet Pittman MD [address] [id number] PCP - General 01/02/24 Alexandria Segura, PT [address] [address] Rewind OperatorCleaning And Maintenance Worker Medicine and Rehabilitation 11/26/24 documented as of this encounter
--- OUTSIDE RECORDS SUMMARY | 2025-06-05 01:30 | XMS_ITS | Encounter Summary ---
Author Organization [facility] Address [address] [place] [address] Care Team Providers Care Business Planning Director Name Role Phone Velvet Pittman MD Primary Care Provider [phone] Alexandria Segura PT Unavailable [phone] Encounter Details Date Type Department Care Team (Late st Contact Info) Description 09/20/2024 Scanned Document [facility] [employer] SCAN Physical Therapy, Scan Social History Tobacco Use Types Packs/Day Years Used Date Smoking Tobacco: Never Smokeless Tobacco: Never Alcohol Use Standard Drinks/Week Comments Yes 0 (1 standard drink = 0.6 oz pur e alcohol) social [facility] Utilities Answer Date Recorded In the past 12 months has [employer], gas, oil, or water [employer] threatened to shut off services in your [...] place to sleep or slept in a jail (including now)? No 11/19/2023 Sex and Gender [...] Diagnoses Not on filedocumented in this encounter Additional Health Concerns Infection Onset Date Last Indicated Resolved Time R/O Respiratory Disease 12/03/2024 12/03/202411/15 7:00 PM EDT documented as of this encounter Care Teams Business Planning Director Relationship Specialty Start Date End Date Velvet Pittman MD [address] [place] [id number] PCP - General 01/02/24 Alexandria Segura, PT [address] [address] Dock HandMid Level Net Developer Medicine and Rehabilitation 11/26/24 documented as of this encounter
--- OUTSIDE RECORDS SUMMARY | 2025-06-05 01:30 | XMS_ITS ---
Author Name [facility] Organization Unknown Results Test Name/Text Value Interpretation Date Range Source POC Glucose 138.0 mg/dL Above high normal 12/30/2024 65 - 99 HHCCT POC Glucose 169.0 mg/dL Above high normal 12/29/2024 65 - 99 HHCCT POC Glucose 181.0 mg/dL Above high normal 12/29/2024 65 - 99 HHCCT Hgb Bld-mCnc 10.0 g/dL Below low normal 12/29/2024 13 - 17.7 HHCCT RDW RBC Auto-Rto 12.2 % 12/29/2024 11.5 - 14.5 HHCCT MCH RBC Qn Auto 31.9 pg Above high normal 12/29/2024 27 - 31 HHCCT PMV Bld Auto 10.4 fL 12/29/2024 7.5 - 12.5 HHCCT Platelet num Bld Auto 205.0 Thou/uL 12/29/2024 150 - 450 HHCCT Hct VFr Bld Auto 29.7 % Below low normal 12/29/2024 39 - 54 HHCCT WBC num Bld Auto 10.9 Thou/uL 12/29/2024 4 - 11 HHCCT MCHC RBC Auto-mCnc 33.7 g/dL 12/29/2024 30 - 36 HHCCT RBC num Bld Auto 3.13 Mil/uL Below low normal 12/29/2024 4.5 - 6.2 HHCCT MCV RBC Auto 95.0 fL 12/29/2024 80 - 100 HHCCT POC Glucose 129.0 mg/dL Above high normal 12/29/2024 65 - 99 HHCCT POC Glucose 150.0 mg/dL Above high normal 12/28/2024 65 - 99 HHCCT POC Glucose 160.0 mg/dL Above high normal 12/28/2024 65 - 99 HHCCT Sodium SerPl-sCnc 133.0 mmol/L Below low normal 12/28/2024 1 36 - 145 HHCCT POC Glucose 126.0 mg/dL Above high normal 12/28/2024 65 - 99 HHCCT BUN SerPl-mCnc 15.0 mg/dL 12/28/2024 8 - [address] ALP SerPl-cCnc 133.0 U/L Above high normal 12/28/2024 45 - 1 28 HHCCT Glucose SerPl-mCnc 112.0 mg/dL Above high normal 12/28/2024 65 - 99 HHCCT Sodium SerPl-sCnc 130.0 mmol/L Below low normal 12/28/2024 1 36 - 145 HHCCT Prot SerPl-mCnc 6.9 g/dL 12/28/2024 6.3 - 8.[address] BUN/Creat SerPl 25.0 Ratio 12/28/2024 10 - 25 HH CCT Globulin Ser Calc-mCnc 4.1 g/dL Above high normal 12/28/2024 1.5 - 3.9 HHCCT ALT SerPl-cCnc 26.0 U/L 12/28/2024 10 - 55 HHCC T Calcium SerPl-mCnc 8.9 mg/dL 12/28/2024 8.7 - 10.5 HHCCT GFR/BSA.pred SerPlBld [id number] >90.0 12/28/2024 59 - HHCCT Anion Gap Bld-sCnc 10.0 12/28/2024 7 - 17 HHCCT Potassium SerPl-sCnc 3.9 mmol/L 12/28/2024 3.4 - 5.3 HHCCT AST SerPl-cCnc 37.0 U/L 12/28/2024 10 - 55 HHCC T Albumin/Glob SerPl 0.7 Ratio Below low normal 12/28/2024 1 - 3 HHCCT CO2 SerPl-sCnc 20.0 mmol/L Below low normal 12/28/2024 22 - 33 HHCCT Albumin SerPl-mCnc 2.8 g/dL Below low normal 12/28/2024 3.4 - 4.8 HHCCT Bilirub SerPl-mCnc 0.8 mg/dL 12/28/2024 0.2 - 1 HHCCT Creat SerPl-mCnc 0.6 mg/dL 12/28/2024 0.5 - 1.3 HH CCT Chloride SerPl-sCnc 100.0 mmol/L 12/28/2024 98 - 1 07 HHCCT Magnesium SerPl-mCnc 1.7 mg/dL 12/28/2024 1.6 - 2.7 HHCCT MCH RBC Qn Auto 32.6 pg Above high normal 12/28/2024 27 - 31 HHCCT PMV Bld Auto 10.6 fL 12/28/2024 7.5 - 12.5 HHCCT RBC num Bld Auto 3.1 Mil/uL Below low normal 12/28/2024 4.5 - 6.2 HHCCT MCHC RBC Auto-mCnc 34.1 g/dL 12/28/2024 30 - 36 HHCCT Platelet num Bld Auto 191.0 Thou/uL 12/28/2024 150 - 450 HHCCT RDW RBC Auto-Rto 12.2 % 12/28/2024 11.5 - 14.5 HHCCT Hct VFr Bld Auto 29.6 % Below low normal 12/28/2024 39 - 54 HHCCT Hgb Bld-mCnc 10.1 g/dL Below low normal 12/28/2024 13 - 17.7 HHCCT MCV RBC Auto 96.0 fL 12/28/2024 80 - 100 HHCCT WBC num Bld Auto 11.9 Thou/uL Above high normal 12/28/2024 4 - 11 HHCCT Sodium SerPl-sCnc 132.0 mmol/L Below low normal 12/28/2024 1 36 - 145 HHCCT POC Glucose 170.0 mg/dL Above high normal 12/27/2024 65 - 99 HHCCT POC Glucose 191.0 mg/dL Above high normal 12/27/2024 65 - 99 HHCCT Sodium SerPl-sCnc 130.0 mmol/L Below low normal 12/27/2024 1 36 - 145 HHCCT Nitrite Ur Ql Strip Negative 12/27/2024 - HHCCT Glucose Ur Strip-mCnc 0.0 mg/dL 12/27/2024 0 - 99 HHCCT Color Ur Angelika 12/27/2024 HHCCT Hgb Ur Ql Strip Negative 12/27/2024 - C CT Bilirub Ur Strip-mCnc Negative 12/27/2024 - CCT pH Ur Strip 6.0 12/27/2024 5 - 8 HHCCT Sp Gr Ur Strip 1.02 12/27/2024 1.003 - 1.03 HHCCT Clarity Ur Clear 12/27/2024 HHCCT Prot Ur Strip-mCnc Moderate (100 mg/dL) Abnormal 12/27/2024 - CCT WBC num/area UrnS HPF 1.0 per hpf 12/27/2024 0 - 4 HHCCT Leukocyte esterase Ur Ql Strip Negative 12/27/2024 - CCT Ketones Ur Strip-mCnc Trace Abnormal 12/27/2024 - CCT RBC num/area UrnS HPF 1.0 per hpf 12/27/2024 0 - 4 HHCCT POC Glucose 162.0 mg/dL Above high normal 12/27/2024 65 - 99 HHCCT Potassium SerPl-sCnc 3.5 mmol/L 12/27/2024 3.4 - 5.3 HHCCT BUN SerPl-mCnc 13.0 mg/dL 12/27/2024 8 - [address] Creat SerPl-mCnc 0.7 mg/dL 12/27/2024 0.5 - 1.3 HH CCT CO2 SerPl-sCnc 21.0 mmol/L Below low normal 12/27/2024 22 - 33 HHCCT Chloride SerPl-sCnc 98.0 mmol/L 12/27/2024 98 - 10 7 HHCCT Glucose SerPl-mCnc 149.0 mg/dL Above high normal 12/27/2024 65 - 99 HHCCT Anion Gap Bld-sCnc 11.0 12/27/2024 7 - 17 HHCCT Calcium SerPl-mCnc 8.9 mg/dL 12/27/2024 8.7 - 10.5 HHCCT GFR/BSA.pred SerPlBld [id number] >90.0 12/27/2024 59 - HHCCT Sodium SerPl-sCnc 130.0 mmol/L Below low normal 12/27/2024 1 36 - 145 HHCCT BUN/Creat SerPl 19.0 Ratio 12/27/2024 10 - 25 HH CCT RDW RBC Auto-Rto 11.9 % 12/27/2024 11.5 - 14.5 HHCCT Lymphocytes num Bld Auto 1.2 Thou/uL Below low normal 12/27/2024 1.5 - 4.5 HHCCT Neutrophils/leuk NFr Bld Auto 81.6 % 12/27/2024 HHCCT WBC num Bld Auto 15.4 Thou/uL Above high normal 12/27/2024 4 - 11 HHCCT RBC num Bld Auto 3.22 Mil/uL Below low normal 12/27/2024 4.5 - 6.2 HHCCT Basophils/leuk NFr Bld Auto 0.2 % 12/27/2024 HHCCT MCHC RBC Auto-mCnc 33.2 g/dL 12/27/2024 30 - 36 HHCCT Monocytes num Bld Auto 1.49 Thou/uL 12/27/2024 0.2 - 1.5 HHCCT Hgb Bld-mCnc 10.2 g/dL Below low normal 12/27/2024 13 - 17.7 HHCCT Lymphocytes/leuk NFr Bld Auto 7.8 % 12/27/2024 HHCCT Imm Granulocytes num Bld Auto 0.1 Thou/uL 12/27/2024 0 - 0.1 HHCCT Basophils num Bld Auto 0.03 Thou/uL 12/27/2024 0 - 0.2 HHCCT Eosinophil num Bld Auto 0.01 Thou/uL 12/27/2024 0 - 0.7 HHCCT MCH RBC Qn Auto 31.7 pg Above high normal 12/27/2024 27 - 31 HHCCT Monocytes/leuk NFr Bld Auto 9.7 % 12/27/2024 HHCCT Neutrophils num Bld Auto 12.56 Thou/uL Above high normal 12/27/2024 2 - 7.5 HHCCT Platelet num Bld Auto 192.0 Thou/uL 12/27/2024 150 - 450 HHCCT Imm Granulocytes/leuk NFr Bld Auto 0.6 % 12/27/2024 HHCCT Hct VFr Bld Auto 30.7 % Below low normal 12/27/2024 39 - 54 HHCCT PMV Bld Auto 10.6 fL 12/27/2024 7.5 - 12.5 HHCCT Eosinophil/leuk NFr Bld Auto 0.1 % 12/27/2024 HHCCT MCV RBC Auto 95.0 fL 12/27/2024 80 - 100 HHCCT POC Glucose 198.0 mg/dL Above high normal 12/26/2024 65 - 99 HHCCT Urate SerPl-mCnc 4.3 mg/dL 12/26/2024 4 - 8 HH CCT POC Glucose 139.0 mg/dL Above high normal 12/26/2024 65 - 99 HHCCT POC Glucose 138.0 mg/dL Above high normal 12/26/2024 65 - 99 HHCCT POC Glucose 140.0 mg/dL Above high normal 12/25/2024 65 - 99 HHCCT POC Glucose 126.0 mg/dL Above high normal 12/25/2024 65 - 99 HHCCT POC Glucose 147.0 mg/dL Above high normal 12/25/2024 65 - 99 HHCCT POC Glucose 262.0 mg/dL Above high normal 12/24/2024 65 - 99 HHCCT POC Glucose 161.0 mg/dL Above high normal 12/24/2024 65 - 99 HHCCT POC Glucose 145.0 mg/dL Above high normal 12/24/2024 65 - 99 HHCCT POC Glucose 126.0 mg/dL Above high normal 12/24/2024 65 - 99 HHCCT POC Glucose 195.0 mg/dL Above high normal 12/23/2024 65 - 99 HHCCT POC Glucose 130.0 mg/dL Above high normal 12/23/2024 65 - 99 HHCCT POC Glucose 141.0 mg/dL Above high normal 12/23/2024 65 - 99 HHCCT Prot SerPl-mCnc 7.6 g/dL 12/23/2024 6.3 - 8.[address] Chloride SerPl-sCnc 103.0 mmol/L 12/23/2024 98 - 1 07 HHCCT ALP SerPl-cCnc 125.0 U/L 12/23/2024 45 - 128 HHCC T BUN SerPl-mCnc 12.0 mg/dL 12/23/2024 8 - [address] Bilirub SerPl-mCnc 0.5 mg/dL 12/23/2024 0.2 - 1 HHCCT Globulin Ser Calc-mCnc 4.2 g/dL Above high normal 12/23/2024 1.5 - 3.9 HHCCT Anion Gap Bld-sCnc 11.0 12/23/2024 7 - 17 HHCCT CO2 SerPl-sCnc 21.0 mmol/L Below low normal 12/23/2024 22 - 33 HHCCT Sodium SerPl-sCnc 135.0 mmol/L Below low normal 12/23/2024 1 36 - 145 HHCCT Albumin/Glob SerPl 0.8 Ratio Below low normal 12/23/2024 1 - 3 HHCCT Potassium SerPl-sCnc 4.3 mmol/L 12/23/2024 3.4 - 5.3 HHCCT AST SerPl-cCnc 22.0 U/L 12/23/2024 10 - 55 HHCC T Creat SerPl-mCnc 0.7 mg/dL 12/23/2024 0.5 - 1.3 HH CCT GFR/BSA.pred SerPlBld HPI-DOR-JfFEps >90.0 12/23/2024 59 - HHCCT Glucose SerPl-mCnc 134.0 mg/dL Above high normal 12/23/2024 65 - 99 HHCCT BUN/Creat SerPl 17.0 Ratio 12/23/2024 10 - 25 HH CCT Calcium SerPl-mCnc 9.4 mg/dL 12/23/2024 8.7 - 10.5 HHCCT Albumin SerPl-mCnc 3.4 g/dL 12/23/2024 3.4 - 4.8 HHCCT ALT SerPl-cCnc 24.0 U/L 12/23/2024 10 - 55 HHCC T Magnesium SerPl-mCnc 1.6 mg/dL 12/23/2024 1.6 - 2.7 HHCCT MCV RBC Auto 96.0 fL 12/23/2024 80 - 100 HHCCT MCH RBC Qn Auto 32.7 pg Above high normal 12/23/2024 27 - 31 HHCCT Platelet num Bld Auto 182.0 Thou/uL 12/23/2024 150 - 450 HHCCT Hgb Bld-mCnc 11.2 g/dL Below low normal 12/23/2024 13 - 17.7 HHCCT WBC num Bld Auto 9.2 Thou/uL 12/23/2024 4 - 11 HHCCT PMV Bld Auto 10.6 fL 12/23/2024 7.5 - 12.5 HHCCT Hct VFr Bld Auto 32.8 % Below low normal 12/23/2024 39 - 54 HHCCT RBC num Bld Auto 3.42 Mil/uL Below low normal 12/23/2024 4.5 - 6.2 HHCCT RDW RBC Auto-Rto 12.2 % 12/23/2024 11.5 - 14.5 HHCCT MCHC RBC Auto-mCnc 34.1 g/dL 12/23/2024 30 - 36 HHCCT POC Glucose 175.0 mg/dL Above high normal 12/23/2024 65 - 99 HHCCT POC Glucose 147.0 mg/dL Above high normal 12/22/2024 65 - 99 HHCCT POC Glucose 244.0 mg/dL Above high normal 12/22/2024 65 - 99 HHCCT POC Glucose 105.0 mg/dL Above high normal 12/22/2024 65 - 99 HHCCT POC Glucose 155.0 mg/dL Above high normal 12/21/2024 65 - 99 HHCCT POC Glucose 106.0 mg/dL Above high normal 12/21/2024 65 - 99 HHCCT POC Glucose 126.0 mg/dL Above high normal 12/21/2024 65 - 99 HHCCT Magnesium SerPl-mCnc 1.5 mg/dL Below low normal 12/21/2024 1.6 - 2.7 HHCCT BUN/Creat SerPl 14.0 Ratio 12/21/2024 10 - 25 HH CCT Calcium SerPl-mCnc 9.4 mg/dL 12/21/2024 8.7 - 10.5 HHCCT Anion Gap Bld-sCnc 9.0 12/21/2024 7 - 17 HHCCT Glucose SerPl-mCnc 123.0 mg/dL Above high normal 12/21/2024 65 - 99 HHCCT CO2 SerPl-sCnc 22.0 mmol/L 12/21/2024 22 - 33 HH CCT Creat SerPl-mCnc 0.7 mg/dL 12/21/2024 0.5 - 1.3 HH CCT Sodium SerPl-sCnc 133.0 mmol/L Below low normal 12/21/2024 1 36 - 145 HHCCT Potassium SerPl-sCnc 3.7 mmol/L 12/21/2024 3.4 - 5.3 HHCCT GFR/BSA.pred SerPlBld [id number] >90.0 12/21/2024 59 - HHCCT BUN SerPl-mCnc 10.0 mg/dL 12/21/2024 8 - [address] Chloride SerPl-sCnc 102.0 mmol/L 12/21/2024 98 - 1 07 HHCCT POC Glucose 122.0 mg/dL Above high normal 12/20/2024 65 - 99 HHCCT POC Glucose 203.0 mg/dL Above high normal 12/20/2024 65 - 99 HHCCT POC Glucose 138.0 mg/dL Above high normal 12/20/2024 65 - HHCCT POC Glucose 117.0 mg/dL Above high normal 12/19/2024 65 - HHCCT POC Glucose 178.0 mg/dL Above high normal 12/19/2024 65 - 99 HHCCT POC Glucose 123.0 mg/dL Above high normal 12/19/2024 65 - 99 HHCCT POC Glucose 161.0 mg/dL Above high normal 12/18/2024 65 - HHCCT POC Glucose 198.0 mg/dL Above high normal 12/18/2024 65 - 99 HHCCT POC Glucose 125.0 mg/dL Above high normal 12/18/2024 65 - HHCCT POC Glucose 187.0 mg/dL Above high normal 12/17/2024 65 - 99 HHCCT POC Glucose 183.0 mg/dL Above high normal 12/17/2024 65 - HHCCT POC Glucose 128.0 mg/dL Above high normal 12/17/2024 65 - HHCCT POC Glucose 185.0 mg/dL Above high normal 12/16/2024 65 - 99 HHCCT POC Glucose 203.0 mg/dL Above high normal 12/16/2024 65 - 99 HHCCT Hct VFr Bld Auto 34.4 % Below low normal 12/16/2024 39 - 54 HHCCT Hgb Bld-mCnc 11.4 g/dL Below low normal 12/16/2024 13 - 17.7 HHCCT RDW RBC Auto-Rto 11.7 % 12/16/2024 11.5 - 14.5 HHCCT MCV RBC Auto 96.0 fL 12/16/2024 80 - 100 HHCCT RBC num Bld Auto 3.57 Mil/uL Below low normal 12/16/2024 4.5 - 6.2 HHCCT Platelet num Bld Auto 185.0 Thou/uL 12/16/2024 150 - 450 HHCCT MCH RBC Qn Auto 31.9 pg Above high normal 12/16/2024 27 - 31 HHCCT WBC num Bld Auto 8.0 Thou/uL 12/16/2024 4 - 11 HHCCT PMV Bld Auto 10.5 fL 12/16/2024 7.5 - 12.5 HHCCT MCHC RBC Auto-mCnc 33.1 g/dL 12/16/2024 30 - 36 HHCCT BUN/Creat SerPl 27.0 Ratio Above high normal 12/16/2024 10 - 25 HHCCT Glucose SerPl-mCnc 125.0 mg/dL Above high normal 12/16/2024 65 - 99 HHCCT Albumin/Glob SerPl 0.8 Ratio Below low normal 12/16/2024 1 - 3 HHCCT Potassium SerPl-sCnc 3.7 mmol/L 12/16/2024 3.4 - 5.3 HHCCT Sodium SerPl-sCnc 135.0 mmol/L Below low normal 12/16/2024 1 36 - 145 HHCCT AST SerPl-cCnc 29.0 U/L 12/16/2024 10 - 55 HHCC T Prot SerPl-mCnc 7.6 g/dL 12/16/2024 6.3 - 8.[address] Bilirub SerPl-mCnc 0.4 mg/dL 12/16/2024 0.2 - 1 HHCCT ALT SerPl-cCnc 32.0 U/L 12/16/2024 10 - 55 HHCC T Calcium SerPl-mCnc 9.4 mg/dL 12/16/2024 8.7 - 10.5 HHCCT BUN SerPl-mCnc 19.0 mg/dL 12/16/2024 8 - [address] ALP SerPl-cCnc 124.0 U/L 12/16/2024 45 - 128 HHCC T CO2 SerPl-sCnc 19.0 mmol/L Below low normal 12/16/2024 22 - 33 HHCCT Globulin Ser Calc-mCnc 4.3 g/dL Above high normal 12/16/2024 1.5 - 3.9 HHCCT Chloride SerPl-sCnc 105.0 mmol/L 12/16/2024 98 - 1 07 HHCCT Anion Gap Bld-sCnc 11.0 12/16/2024 7 - 17 HHCCT Albumin SerPl-mCnc 3.3 g/dL Below low normal 12/16/2024 3.4 - 4.8 HHCCT GFR/BSA.pred SerPlBld OLS-JQU-WeCOau >90.0 12/16/2024 59 - HHCCT Creat SerPl-mCnc 0.7 mg/dL 12/16/2024 0.5 - 1.3 HH CCT Magnesium SerPl-mCnc 1.6 mg/dL 12/16/2024 1.6 - 2.7 HHCCT POC Glucose 126.0 mg/dL Above high normal 12/16/2024 65 - 99 HHCCT Magnesium SerPl-mCnc 1.6 mg/dL 12/16/2024 1.6 - 2.7 HHCCT POC Glucose 182.0 mg/dL Above high normal 12/15/2024 65 - HHCCT POC Glucose 168.0 mg/dL Above high normal 12/15/2024 65 - HHCCT POC Glucose 131.0 mg/dL Above high normal 12/15/2024 65 - 99 HHCCT POC Glucose 164.0 mg/dL Above high normal 12/14/2024 65 - HHCCT POC Glucose 174.0 mg/dL Above high normal 12/14/2024 65 - HHCCT POC Glucose 121.0 mg/dL Above high normal 12/14/2024 65 - HHCCT POC Glucose 118.0 mg/dL Above high normal 12/13/2024 65 - HHCCT POC Glucose 207.0 mg/dL Above high normal 12/13/2024 65 - HHCCT POC Glucose 123.0 mg/dL Above high normal 12/13/2024 65 - HHCCT POC Glucose 142.0 mg/dL Above high normal 12/12/2024 65 - HHCCT POC Glucose 203.0 mg/dL Above high normal 12/12/2024 65 - HHCCT POC Glucose 209.0 mg/dL Above high normal 12/12/2024 65 - HHCCT POC Glucose 144.0 mg/dL Above high normal 12/12/2024 65 - HHCCT POC Glucose 239.0 mg/dL Above high normal 12/11/2024 65 - HHCCT POC Glucose 161.0 mg/dL Above high normal 12/11/2024 65 - HHCCT POC Glucose 132.0 mg/dL Above high normal 12/11/2024 65 - HHCCT POC Glucose 153.0 mg/dL Above high normal 12/10/2024 65 - HHCCT POC Glucose 174.0 mg/dL Above high normal 12/10/2024 65 - HHCCT POC Glucose 122.0 mg/dL Above high normal 12/10/2024 65 - HHCCT POC Glucose 120.0 mg/dL Above high normal 12/10/2024 65 - HHCCT POC Glucose 125.0 mg/dL Above high normal 12/10/2024 65 - HHCCT POC Glucose 218.0 mg/dL Above high normal 12/09/2024 65 - HHCCT POC Glucose 156.0 mg/dL Above high normal 12/09/2024 65 - HHCCT POC Glucose 127.0 mg/dL Above high normal 12/09/2024 65 - 99 HHCCT Magnesium SerPl-mCnc 1.7 mg/dL 12/09/2024 1.6 - 2.7 HHCCT BUN/Creat SerPl 35.0 Ratio Above high normal 12/09/2024 10 - 25 HHCCT Prot SerPl-mCnc 7.7 g/dL 12/09/2024 6.3 - 8.[address] GFR/BSA.pred SerPlBld [id number] >90.0 12/09/2024 59 - HHCCT Chloride SerPl-sCnc 102.0 mmol/L 12/09/2024 98 - 1 07 HHCCT Albumin/Glob SerPl 0.8 Ratio Below low normal 12/09/2024 1 - 3 HHCCT Sodium SerPl-sCnc 132.0 mmol/L Below low normal 12/09/2024 1 36 - 145 HHCCT BUN SerPl-mCnc 28.0 mg/dL Above high normal 12/09/2024 8 - 2 1 HHCCT AST SerPl-cCnc 25.0 U/L 12/09/2024 10 - 55 HHCC T Anion Gap Bld-sCnc 12.0 12/09/2024 7 - 17 HHCCT Potassium SerPl-sCnc 3.5 mmol/L 12/09/2024 3.4 - 5.3 HHCCT Calcium SerPl-mCnc 9.6 mg/dL 12/09/2024 8.7 - 10.5 HHCCT Glucose SerPl-mCnc 118.0 mg/dL Above high normal 12/09/2024 65 - 99 HHCCT ALT SerPl-cCnc 26.0 U/L 12/09/2024 10 - 55 HHCC T Albumin SerPl-mCnc 3.3 g/dL Below low normal 12/09/2024 3.4 - 4.8 HHCCT Globulin Ser Calc-mCnc 4.4 g/dL Above high normal 12/09/2024 1.5 - 3.9 HHCCT Creat SerPl-mCnc 0.8 mg/dL 12/09/2024 0.5 - 1.3 HH CCT CO2 SerPl-sCnc 18.0 mmol/L Below low normal 12/09/2024 22 - 33 HHCCT ALP SerPl-cCnc 112.0 U/L 12/09/2024 45 - 128 HHCC T Bilirub SerPl-mCnc 0.5 mg/dL 12/09/2024 0.2 - 1 HHCCT MCH RBC Qn Auto 33.6 pg Above high normal 12/09/2024 27 - 31 HHCCT RBC num Bld Auto 3.6 Mil/uL Below low normal 12/09/2024 4.5 - 6.2 HHCCT MCHC RBC Auto-mCnc 35.3 g/dL 12/09/2024 30 - 36 HHCCT Platelet num Bld Auto 174.0 Thou/uL 12/09/2024 150 - 450 HHCCT WBC num Bld Auto 9.4 Thou/uL 12/09/2024 4 - 11 HHCCT MCV RBC Auto 95.0 fL 12/09/2024 80 - 100 HHCCT Hgb Bld-mCnc 12.1 g/dL Below low normal 12/09/2024 13 - 17.7 HHCCT RDW RBC Auto-Rto 11.7 % 12/09/2024 11.5 - 14.5 HHCCT Hct VFr Bld Auto 34.3 % Below low normal 12/09/2024 39 - 54 HHCCT PMV Bld Auto 11.2 fL 12/09/2024 7.5 - 12.5 HHCCT POC Glucose 192.0 mg/dL Above high normal 12/08/2024 65 - 99 HHCCT POC Glucose 187.0 mg/dL Above high normal 12/08/2024 65 - 99 HHCCT POC Glucose 143.0 mg/dL Above high normal 12/08/2024 65 - 99 HHCCT POC Glucose 182.0 mg/dL Above high normal 12/07/2024 65 - 99 HHCCT POC Glucose 178.0 mg/dL Above high normal 12/07/2024 65 - 99 HHCCT POC Glucose 126.0 mg/dL Above high normal 12/07/2024 65 - 99 HHCCT Magnesium SerPl-mCnc 1.7 mg/dL 12/07/2024 1.6 - 2.7 HHCCT POC Glucose 178.0 mg/dL Above high normal 12/06/2024 65 - 99 HHCCT GFR/BSA.pred SerPlBld [id number] 89.0 12/06/2024 59 - HHCCT Chloride SerPl-sCnc 99.0 mmol/L 12/06/2024 98 - 10 7 HHCCT Potassium SerPl-sCnc 4.0 mmol/L 12/06/2024 3.4 - 5.3 HHCCT Glucose SerPl-mCnc 173.0 mg/dL Above high normal 12/06/2024 65 - 99 HHCCT CO2 SerPl-sCnc 19.0 mmol/L Below low normal 12/06/2024 22 - 33 HHCCT Sodium SerPl-sCnc 132.0 mmol/L Below low normal 12/06/2024 1 36 - 145 HHCCT Calcium SerPl-mCnc 10.0 mg/dL 12/06/2024 8.7 - 10. 5 HHCCT BUN/Creat SerPl 31.0 Ratio Above high normal 12/06/2024 10 - 25 HHCCT Creat SerPl-mCnc 0.9 mg/dL 12/06/2024 0.5 - 1.3 HH CCT BUN SerPl-mCnc 28.0 mg/dL Above high normal 12/06/2024 8 - 2 1 HHCCT Anion Gap Bld-sCnc 14.0 12/06/2024 7 - 17 HHCCT Magnesium SerPl-mCnc 1.4 mg/dL Below low normal 12/06/2024 1.6 - 2.7 HHCCT POC Glucose 158.0 mg/dL Above high normal 12/06/2024 65 - 99 HHCCT POC Glucose 148.0 mg/dL Above high normal 12/06/2024 65 - 99 HHCCT POC Glucose 150.0 mg/dL Above high normal 12/05/2024 65 - 99 HHCCT POC Glucose 160.0 mg/dL Above high normal 12/05/2024 65 - 99 HHCCT POC Glucose 137.0 mg/dL Above high normal 12/05/2024 65 - 99 HHCCT Potassium SerPl-sCnc 3.8 mmol/L 12/05/2024 3.4 - 5.3 HHCCT CO2 SerPl-sCnc 17.0 mmol/L Below low normal 12/05/2024 22 - 33 HHCCT Glucose SerPl-mCnc 115.0 mg/dL Above high normal 12/05/2024 65 - 99 HHCCT Creat SerPl-mCnc 0.8 mg/dL 12/05/2024 0.5 - 1.3 HH CCT Sodium SerPl-sCnc 132.0 mmol/L Below low normal 12/05/2024 1 36 - 145 HHCCT Chloride SerPl-sCnc 103.0 mmol/L 12/05/2024 98 - 1 07 HHCCT Calcium SerPl-mCnc 10.0 mg/dL 12/05/2024 8.7 - 10. 5 HHCCT BUN SerPl-mCnc 34.0 mg/dL Above high normal 12/05/2024 8 - 2 1 HHCCT Anion Gap Bld-sCnc 12.0 12/05/2024 7 - 17 HHCCT GFR/BSA.pred SerPlBld [id number] >90.0 12/05/2024 59 - HHCCT BUN/Creat SerPl 43.0 Ratio Above high normal 12/05/2024 10 - 25 HHCCT RBC num Bld Auto 3.71 Mil/uL Below low normal 12/05/2024 4.5 - 6.2 HHCCT PMV Bld Auto 11.0 fL 12/05/2024 7.5 - 12.5 HHCCT WBC num Bld Auto 9.3 Thou/uL 12/05/2024 4 - 11 HHCCT RDW RBC Auto-Rto 11.6 % 12/05/2024 11.5 - 14.5 HHCCT MCH RBC Qn Auto 32.3 pg Above high normal 12/05/2024 27 - 31 HHCCT Hgb Bld-mCnc 12.0 g/dL Below low normal 12/05/2024 13 - 17.7 HHCCT MCHC RBC Auto-mCnc 34.5 g/dL 12/05/2024 30 - 36 HHCCT Platelet num Bld Auto 166.0 Thou/uL 12/05/2024 150 - 450 HHCCT Hct VFr Bld Auto 34.8 % Below low normal 12/05/2024 39 - 54 HHCCT MCV RBC Auto 94.0 fL 12/05/2024 80 - 100 HHCCT POC Glucose 134.0 mg/dL Above high normal 12/05/2024 65 - 99 HHCCT POC Glucose 120.0 mg/dL Above high normal 12/05/2024 65 - 99 HHCCT POC Glucose 184.0 mg/dL Above high normal 12/04/2024 65 - 99 HHCCT POC Glucose 164.0 mg/dL Above high normal 12/04/2024 65 - 99 HHCCT POC Glucose 108.0 mg/dL Above high normal 12/04/2024 65 - 99 HHCCT Chloride SerPl-sCnc 102.0 mmol/L 12/04/2024 98 - 1 07 HHCCT Creat SerPl-mCnc 1.2 mg/dL 12/04/2024 0.5 - 1.3 HH CCT Sodium SerPl-sCnc 132.0 mmol/L Below low normal 12/04/2024 1 36 - 145 HHCCT Calcium SerPl-mCnc 9.6 mg/dL 12/04/2024 8.7 - 10.5 HHCCT GFR/BSA.pred SerPlBld [id number] 63.0 12/04/2024 59 - HHCCT BUN/Creat SerPl 30.0 Ratio Above high normal 12/04/2024 10 - 25 HHCCT BUN SerPl-mCnc 36.0 mg/dL Above high normal 12/04/2024 8 - 2 1 HHCCT Potassium SerPl-sCnc 3.9 mmol/L 12/04/2024 3.4 - 5.3 HHCCT Anion Gap Bld-sCnc 12.0 12/04/2024 7 - 17 HHCCT CO2 SerPl-sCnc 18.0 mmol/L Below low normal 12/04/2024 22 - 33 HHCCT Glucose SerPl-mCnc 98.0 mg/dL 12/04/2024 65 - 99 HHCCT Vancomycin SerPl-mCnc 16.0 mg/L 12/04/2024 HHCCT Time of last dose Information not given 12/04/2024 HHCCT WBC num Bld Auto 11.3 Thou/uL Above high normal 12/04/2024 4 - 11 HHCCT PMV Bld Auto 11.1 fL 12/04/2024 7.5 - 12.5 HHCCT MCV RBC Auto 98.0 fL 12/04/2024 80 - 100 HHCCT RBC num Bld Auto 3.83 Mil/uL Below low normal 12/04/2024 4.5 - 6.2 HHCCT RDW RBC Auto-Rto 11.7 % 12/04/2024 11.5 - 14.5 HHCCT Platelet num Bld Auto 185.0 Thou/uL 12/04/2024 150 - 450 HHCCT Hgb Bld-mCnc 12.9 g/dL Below low normal 12/04/2024 13 - 17.7 HHCCT MCH RBC Qn Auto 33.7 pg Above high normal 12/04/2024 27 - 31 HHCCT MCHC RBC Auto-mCnc 34.3 g/dL 12/04/2024 30 - 36 HHCCT Hct VFr Bld Auto 37.6 % Below low normal 12/04/2024 39 - 54 HHCCT POC Glucose 99.0 mg/dL 12/04/2024 65 - 99 HHCCT POC Glucose 152.0 mg/dL Above high normal 12/04/2024 65 - 99 HHCCT Lactate SerPl-sCnc 2.6 mmol/L Above high normal 12/04/2024 0 .5 - 1.9 HHCCT Comment Negative results do not preclude SARS-CoV-2, Influenza or RSV infection and should not be used as the sole basis for treatment or other patient management decisions. 12/03/2024 HHCCT Influenza virus B in upper resp spec by JOHANA with probe detection Not Detected 12/03/2024 HHCCT Influenza virus A in upper resp spec by JOHANA with probe detection Not Detected 12/03/2024 HHCCT Respiratory syncytial virus RNA in upper resp spec by JOHANA with probe detection Not Detected 12/03/2024 HHCCT 2019-nCOV RNA Not Detected 12/03/2024 HH [facility] POC Glucose 167.0 mg/dL Above high normal 12/03/2024 65 - 99 HHCCT Result Detected Abnormal 12/03/2024 - HHCCT Osmolality Ur 396.0 mOsm/Kg 12/03/2024 50 - 1200 H HCCT pH Ur Strip 6.0 12/03/2024 5 - 8 HHCCT Clarity Ur Clear 12/03/2024 HHCCT Color Ur Yellow 12/03/2024 HHCCT Hgb Ur Ql Strip Negative 12/03/2024 - HHC CT Glucose Ur Strip-mCnc 0.0 mg/dL 12/03/2024 0 - 99 HHCCT Ketones Ur Strip-mCnc Negative 12/03/2024 - HHCCT Prot Ur Strip-mCnc Negative 12/03/2024 - HHCCT WBC num/area UrnS HPF 2.0 per hpf 12/03/2024 0 - 4 HHCCT Bilirub Ur Strip-mCnc Negative 12/03/2024 - HHCCT Nitrite Ur Ql Strip Negative 12/03/2024 - HHCCT RBC num/area UrnS HPF 0.0 per hpf 12/03/2024 0 - 4 HHCCT Sp Gr Ur Strip 1.013 12/03/2024 1.003 - 1.03 HHCCT Leukocyte esterase Ur Ql Strip Negative 12/03/2024 - HHCCT Sodium Ur-sCnc 36.0 mmol/L 12/03/2024 HH CCT Potassium Ur-sCnc 39.0 mmol/L 12/03/2024 HHCCT Chloride Ur-sCnc 27.0 mmol/L 12/03/2024 HHCCT Sodium Ur-sCnc 40.0 mmol/L 12/03/2024 HH CCT Lactate SerPl-sCnc 3.1 mmol/L Critically high 12/03/2024 0.5 - 1.9 HHCCT POC Glucose 137.0 mg/dL Above high normal 12/03/2024 65 - 99 HHCCT POC Glucose 114.0 mg/dL Above high normal 12/03/2024 65 - 99 HHCCT Procalcitonin SerPl EIA-mCnc 0.09 ng/mL 12/03/2024 - 0.51 HHCCT Osmolality SerPl 289.0 mOsm/Kg 12/03/2024 275 - 29 5 HHCCT Creat SerPl-mCnc 1.4 mg/dL Above high normal 12/03/2024 0.5 - 1.3 HHCCT CO2 SerPl-sCnc 21.0 mmol/L Below low normal 12/03/2024 22 - 33 HHCCT BUN/Creat SerPl 27.0 Ratio Above high normal 12/03/2024 10 - 25 HHCCT Anion Gap Bld-sCnc 14.0 12/03/2024 7 - 17 HHCCT Sodium SerPl-sCnc 132.0 mmol/L Below low normal 12/03/2024 1 36 - 145 HHCCT Glucose SerPl-mCnc 112.0 mg/dL Above high normal 12/03/2024 65 - 99 HHCCT Potassium SerPl-sCnc 4.2 mmol/L 12/03/2024 3.4 - 5.3 HHCCT BUN SerPl-mCnc 38.0 mg/dL Above high normal 12/03/2024 8 - 2 1 HHCCT Chloride SerPl-sCnc 97.0 mmol/L Below low normal 12/03/2024 98 - 107 HHCCT Calcium SerPl-mCnc 9.9 mg/dL 12/03/2024 8.7 - 10.5 HHCCT GFR/BSA.pred SerPlBld [id number] 52.0 Below low normal 12/03/2024 59 - HHCCT MCH RBC Qn Auto 32.2 pg Above high normal 12/03/2024 27 - 31 HHCCT PMV Bld Auto 10.9 fL 12/03/2024 7.5 - 12.5 HHCCT MCHC RBC Auto-mCnc 33.4 g/dL 12/03/2024 30 - 36 HHCCT RBC num Bld Auto 3.97 Mil/uL Below low normal 12/03/2024 4.5 - 6.2 HHCCT Hgb Bld-mCnc 12.8 g/dL Below low normal 12/03/2024 13 - 17.7 HHCCT RDW RBC Auto-Rto 11.7 % 12/03/2024 11.5 - 14.5 HHCCT MCV RBC Auto 97.0 fL 12/03/2024 80 - 100 HHCCT Platelet num Bld Auto 253.0 Thou/uL 12/03/2024 150 - 450 HHCCT WBC num Bld Auto 12.4 Thou/uL Above high normal 12/03/2024 4 - 11 HHCCT Hct VFr Bld Auto 38.3 % Below low normal 12/03/2024 39 - 54 HHCCT POC Glucose 112.0 mg/dL Above high normal 12/03/2024 65 - 99 HHCCT Sodium SerPl-sCnc 130.0 mmol/L Below low normal 12/03/2024 1 36 - 145 HHCCT POC Glucose 117.0 mg/dL Above high normal 12/03/2024 65 - 99 HHCCT POC Glucose 166.0 mg/dL Above high normal 12/02/2024 65 - 99 HHCCT Sodium SerPl-sCnc 130.0 mmol/L Below low normal 12/02/2024 1 36 - 145 HHCCT POC Glucose 162.0 mg/dL Above high normal 12/02/2024 65 - 99 HHCCT POC Glucose 116.0 mg/dL Above high normal 12/02/2024 65 - 99 HHCCT Magnesium SerPl-mCnc 1.5 mg/dL Below low normal 12/02/2024 1.6 - 2.7 HHCCT Calcium SerPl-mCnc 10.1 mg/dL 12/02/2024 8.7 - 10. 5 HHCCT Anion Gap Bld-sCnc 12.0 12/02/2024 7 - 17 HHCCT Glucose SerPl-mCnc 124.0 mg/dL Above high normal 12/02/2024 65 - 99 HHCCT Sodium SerPl-sCnc 130.0 mmol/L Below low normal 12/02/2024 1 36 - 145 HHCCT AST SerPl-cCnc 28.0 U/L 12/02/2024 10 - 55 HHCC T Bilirub SerPl-mCnc 0.6 mg/dL 12/02/2024 0.2 - 1 HHCCT GFR/BSA.pred SerPlBld WNP-COH-UsBFrt 78.0 12/02/2024 59 - HHCCT Creat SerPl-mCnc 1.0 mg/dL 12/02/2024 0.5 - 1.3 HH CCT Prot SerPl-mCnc 8.4 g/dL Above high normal 12/02/2024 6.3 - 8.3 HHCCT Chloride SerPl-sCnc 97.0 mmol/L Below low normal 12/02/2024 98 - 107 HHCCT CO2 SerPl-sCnc 21.0 mmol/L Below low normal 12/02/2024 22 - 33 HHCCT BUN/Creat SerPl 26.0 Ratio Above high normal 12/02/2024 10 - 25 HHCCT Albumin/Glob SerPl 0.8 Ratio Below low normal 12/02/2024 1 - 3 HHCCT Potassium SerPl-sCnc 4.0 mmol/L 12/02/2024 3.4 - 5.3 HHCCT ALT SerPl-cCnc 34.0 U/L 12/02/2024 10 - 55 HHCC T Albumin SerPl-mCnc 3.8 g/dL 12/02/2024 3.4 - 4.8 HHCCT BUN SerPl-mCnc 26.0 mg/dL Above high normal 12/02/2024 8 - 2 1 HHCCT ALP SerPl-cCnc 104.0 U/L 12/02/2024 45 - 128 HHCC T Globulin Ser Calc-mCnc 4.6 g/dL Above high normal 12/02/2024 1.5 - 3.9 HHCCT RBC num Bld Auto 4.03 Mil/uL Below low normal 12/02/2024 4.5 - 6.2 HHCCT WBC num Bld Auto 11.5 Thou/uL Above high normal 12/02/2024 4 - 11 HHCCT MCHC RBC Auto-mCnc 33.9 g/dL 12/02/2024 30 - 36 HHCCT RDW RBC Auto-Rto 11.5 % 12/02/2024 11.5 - 14.5 HHCCT PMV Bld Auto 10.8 fL 12/02/2024 7.5 - 12.5 HHCCT MCH RBC Qn Auto 32.3 pg Above high normal 12/02/2024 27 - 31 HHCCT Hgb Bld-mCnc 13.0 g/dL 12/02/2024 13 - 17.7 HHCCT Platelet num Bld Auto 237.0 Thou/uL 12/02/2024 150 - 450 HHCCT MCV RBC Auto 95.0 fL 12/02/2024 80 - 100 HHCCT Hct VFr Bld Auto 38.4 % Below low normal 12/02/2024 39 - 54 HHCCT POC Glucose 129.0 mg/dL Above high normal 12/02/2024 65 - 99 HHCCT POC Glucose 148.0 mg/dL Above high normal 12/01/2024 65 - HHCCT POC Glucose 195.0 mg/dL Above high normal 12/01/2024 65 - 99 HHCCT POC Glucose 120.0 mg/dL Above high normal 12/01/2024 65 - 99 HHCCT POC Glucose 129.0 mg/dL Above high normal 11/30/2024 65 - 99 HHCCT POC Glucose 167.0 mg/dL Above high normal 11/30/2024 65 - HHCCT POC Glucose 133.0 mg/dL Above high normal 11/30/2024 65 - HHCCT POC Glucose 164.0 mg/dL Above high normal 11/30/2024 65 - 99 HHCCT POC Glucose 127.0 mg/dL Above high normal 11/29/2024 65 - 99 HHCCT POC Glucose 225.0 mg/dL Above high normal 11/29/2024 65 - HHCCT POC Glucose 135.0 mg/dL Above high normal 11/29/2024 65 - 99 HHCCT POC Glucose 153.0 mg/dL Above high normal 11/29/2024 65 - 99 HHCCT POC Glucose 164.0 mg/dL Above high normal 11/29/2024 65 - 99 HHCCT POC Glucose 151.0 mg/dL Above high normal 11/28/2024 65 - 99 HHCCT POC Glucose 199.0 mg/dL Above high normal 11/28/2024 65 - 99 HHCCT POC Glucose 127.0 mg/dL Above high normal 11/28/2024 65 - 99 HHCCT Magnesium SerPl-mCnc 1.7 mg/dL 11/28/2024 1.6 - 2.7 HHCCT BUN SerPl-mCnc 18.0 mg/dL 11/28/2024 8 - [address] Anion Gap Bld-sCnc 14.0 11/28/2024 7 - 17 HHCCT Calcium SerPl-mCnc 9.6 mg/dL 11/28/2024 8.7 - 10.5 HHCCT BUN/Creat SerPl 20.0 Ratio 11/28/2024 10 - 25 HH CCT CO2 SerPl-sCnc 19.0 mmol/L Below low normal 11/28/2024 22 - 33 HHCCT Glucose SerPl-mCnc 115.0 mg/dL Above high normal 11/28/2024 65 - HHCCT Potassium SerPl-sCnc 3.7 mmol/L 11/28/2024 3.4 - 5.3 HHCCT Chloride SerPl-sCnc 101.0 mmol/L 11/28/2024 98 - 1 07 HHCCT Creat SerPl-mCnc 0.9 mg/dL 11/28/2024 0.5 - 1.3 HH CCT GFR/BSA.pred SerPlBld JWT-VCP-GeGOsj 89.0 11/28/2024 59 - HHCCT Sodium SerPl-sCnc 134.0 mmol/L Below low normal 11/28/2024 1 36 - 145 HHCCT POC Glucose 112.0 mg/dL Above high normal 11/28/2024 65 - HHCCT POC Glucose 153.0 mg/dL Above high normal 11/27/2024 65 - HHCCT POC Glucose 155.0 mg/dL Above high normal 11/27/2024 65 - 99 HHCCT POC Glucose 130.0 mg/dL Above high normal 11/27/2024 65 - 99 HHCCT BUN/Creat SerPl 24.0 Ratio 11/27/2024 10 - 25 HH CCT Calcium SerPl-mCnc 9.3 mg/dL 11/27/2024 8.7 - 10.5 HHCCT Glucose SerPl-mCnc 118.0 mg/dL Above high normal 11/27/2024 65 - 99 HHCCT CO2 SerPl-sCnc 19.0 mmol/L Below low normal 11/27/2024 22 - 33 HHCCT GFR/BSA.pred SerPlBld JXM-QFL-NdNCpw >90.0 11/27/2024 59 - HHCCT Creat SerPl-mCnc 0.7 mg/dL 11/27/2024 0.5 - 1.3 HH CCT Sodium SerPl-sCnc 133.0 mmol/L Below low normal 11/27/2024 1 36 - 145 HHCCT Anion Gap Bld-sCnc 14.0 11/27/2024 7 - 17 HHCCT Potassium SerPl-sCnc 3.3 mmol/L Below low normal 11/27/2024 3.4 - 5.3 HHCCT BUN SerPl-mCnc 17.0 mg/dL 11/27/2024 8 - [address] Chloride SerPl-sCnc 100.0 mmol/L 11/27/2024 98 - 1 07 HHCCT Magnesium SerPl-mCnc 1.5 mg/dL Below low normal 11/27/2024 1.6 - 2.7 HHCCT POC Glucose 126.0 mg/dL Above high normal 11/27/2024 65 - 99 HHCCT POC Glucose 122.0 mg/dL Above high normal 11/26/2024 65 - 99 HHCCT POC Glucose 163.0 mg/dL Above high normal 11/26/2024 65 - 99 HHCCT POC Glucose 121.0 mg/dL Above high normal 11/26/2024 65 - 99 HHCCT POC Glucose 114.0 mg/dL Above high normal 11/26/2024 65 - 99 HHCCT POC Glucose 143.0 mg/dL Above high normal 11/25/2024 65 - 99 HHCCT POC Glucose 136.0 mg/dL Above high normal 11/25/2024 65 - 99 HHCCT POC Glucose 130.0 mg/dL Above high normal 11/25/2024 65 - 99 HHCCT 25(OH)D3 SerPl-mCnc 40.0 ng/mL 11/25/2024 30 - 100 HHCCT Magnesium SerPl-mCnc 1.6 mg/dL 11/25/2024 1.6 - 2.7 HHCCT Glucose SerPl-mCnc 118.0 mg/dL Above high normal 11/25/2024 65 - 99 HHCCT GFR/BSA.pred SerPlBld WCA-QZA-OvMEjx >90.0 11/25/2024 59 - HHCCT Creat SerPl-mCnc 0.7 mg/dL 11/25/2024 0.5 - 1.3 HH CCT Potassium SerPl-sCnc 4.0 mmol/L 11/25/2024 3.4 - 5.3 HHCCT CO2 SerPl-sCnc 21.0 mmol/L Below low normal 11/25/2024 22 - 33 HHCCT Calcium SerPl-mCnc 9.6 mg/dL 11/25/2024 8.7 - 10.5 HHCCT BUN/Creat SerPl 23.0 Ratio 11/25/2024 10 - 25 HH CCT Chloride SerPl-sCnc 102.0 mmol/L 11/25/2024 98 - 1 07 HHCCT Sodium SerPl-sCnc 134.0 mmol/L Below low normal 11/25/2024 1 36 - 145 HHCCT Anion Gap Bld-sCnc 11.0 11/25/2024 7 - 17 HHCCT BUN SerPl-mCnc 16.0 mg/dL 11/25/2024 8 - [address] Hct VFr Bld Auto 34.7 % Below low normal 11/25/2024 39 - 54 HHCCT MCH RBC Qn Auto 33.1 pg Above high normal 11/25/2024 27 - 31 HHCCT Hgb Bld-mCnc 11.9 g/dL Below low normal 11/25/2024 13 - 17.7 HHCCT WBC num Bld Auto 9.2 Thou/uL 11/25/2024 4 - 11 HHCCT PMV Bld Auto 11.1 fL 11/25/2024 7.5 - 12.5 HHCCT MCV RBC Auto 96.0 fL 11/25/2024 80 - 100 HHCCT RDW RBC Auto-Rto 11.6 % 11/25/2024 11.5 - 14.5 HHCCT MCHC RBC Auto-mCnc 34.3 g/dL 11/25/2024 30 - 36 HHCCT Platelet num Bld Auto 252.0 Thou/uL 11/25/2024 150 - 450 HHCCT RBC num Bld Auto 3.6 Mil/uL Below low normal 11/25/2024 4.5 - 6.2 HHCCT POC Glucose 103.0 mg/dL Above high normal 11/25/2024 65 - 99 HHCCT POC Glucose 116.0 mg/dL Above high normal 11/25/2024 65 - 99 HHCCT POC Glucose 131.0 mg/dL Above high normal 11/24/2024 65 - 99 HHCCT POC Glucose 150.0 mg/dL Above high normal 11/24/2024 65 - 99 HHCCT POC Glucose 116.0 mg/dL Above high normal 11/24/2024 65 - 99 HHCCT POC Glucose 132.0 mg/dL Above high normal 11/24/2024 65 - 99 HHCCT POC Glucose 125.0 mg/dL Above high normal 11/23/2024 65 - 99 HHCCT POC Glucose 155.0 mg/dL Above high normal 11/23/2024 65 - 99 HHCCT POC Glucose 141.0 mg/dL Above high normal 11/23/2024 65 - 99 HHCCT Magnesium SerPl-mCnc 1.6 mg/dL 11/23/2024 1.6 - 2.7 HHCCT CO2 SerPl-sCnc 19.0 mmol/L Below low normal 11/23/2024 22 - 33 HHCCT Albumin SerPl-mCnc 3.4 g/dL 11/23/2024 3.4 - 4.8 HHCCT Creat SerPl-mCnc 0.7 mg/dL 11/23/2024 0.5 - 1.3 HH CCT Potassium SerPl-sCnc 3.5 mmol/L 11/23/2024 3.4 - 5.3 HHCCT ALT SerPl-cCnc 22.0 U/L 11/23/2024 10 - 55 HHCC T Anion Gap Bld-sCnc 14.0 11/23/2024 7 - 17 HHCCT Chloride SerPl-sCnc 99.0 mmol/L 11/23/2024 98 - 10 7 HHCCT Sodium SerPl-sCnc 132.0 mmol/L Below low normal 11/23/2024 1 36 - 145 HHCCT Glucose SerPl-mCnc 131.0 mg/dL Above high normal 11/23/2024 65 - 99 HHCCT BUN/Creat SerPl 23.0 Ratio 11/23/2024 10 - 25 HH CCT BUN SerPl-mCnc 16.0 mg/dL 11/23/2024 8 - [address] Prot SerPl-mCnc 7.8 g/dL 11/23/2024 6.3 - 8.[address] Calcium SerPl-mCnc 9.2 mg/dL 11/23/2024 8.7 - 10.5 HHCCT Globulin Ser Calc-mCnc 4.4 g/dL Above high normal 11/23/2024 1.5 - 3.9 HHCCT GFR/BSA.pred SerPlBld JHH-TXK-BqCXgn >90.0 11/23/2024 59 - HHCCT AST SerPl-cCnc 42.0 U/L 11/23/2024 10 - 55 HHCC T ALP SerPl-cCnc 84.0 U/L 11/23/2024 45 - 128 HHCC T Albumin/Glob SerPl 0.8 Ratio Below low normal 11/23/2024 1 - 3 HHCCT Bilirub SerPl-mCnc 0.8 mg/dL 11/23/2024 0.2 - 1 HHCCT MCV RBC Auto 97.0 fL 11/23/2024 80 - 100 HHCCT Hct VFr Bld Auto 33.4 % Below low normal 11/23/2024 39 - 54 HHCCT RBC num Bld Auto 3.45 Mil/uL Below low normal 11/23/2024 4.5 - 6.2 HHCCT Hgb Bld-mCnc 11.7 g/dL Below low normal 11/23/2024 13 - 17.7 HHCCT MCHC RBC Auto-mCnc 35.0 g/dL 11/23/2024 30 - 36 HHCCT Platelet num Bld Auto 203.0 Thou/uL 11/23/2024 150 - 450 HHCCT WBC num Bld Auto 9.5 Thou/uL 11/23/2024 4 - 11 HHCCT MCH RBC Qn Auto 33.9 pg Above high normal 11/23/2024 27 - 31 HHCCT PMV Bld Auto 10.9 fL 11/23/2024 7.5 - 12.5 HHCCT RDW RBC Auto-Rto 11.7 % 11/23/2024 11.5 - 14.5 HHCCT POC Glucose 131.0 mg/dL Above high normal 11/23/2024 65 - 99 HHCCT POC Glucose 159.0 mg/dL Above high normal 11/22/2024 65 - 99 HHCCT POC Glucose 160.0 mg/dL Above high normal 11/22/2024 65 - HHCCT POC Glucose 140.0 mg/dL Above high normal 11/22/2024 65 - HHCCT POC Glucose 133.0 mg/dL Above high normal 11/22/2024 65 - HHCCT POC Glucose 132.0 mg/dL Above high normal 11/22/2024 65 - HHCCT POC Glucose 156.0 mg/dL Above high normal 11/21/2024 65 - HHCCT POC Glucose 191.0 mg/dL Above high normal 11/21/2024 65 - 99 HHCCT Folate SerPl-mCnc 13.8 ng/mL 11/21/2024 7.2 - HHCCT GFR/BSA.pred SerPlBld EQV-CFS-UuGQzm >90.0 11/21/2024 59 - HHCCT Anion Gap Bld-sCnc 14.0 11/21/2024 7 - 17 HHCCT Potassium SerPl-sCnc 3.3 mmol/L Below low normal 11/21/2024 3.4 - 5.3 HHCCT Calcium SerPl-mCnc 9.7 mg/dL 11/21/2024 8.7 - 10.5 HHCCT Chloride SerPl-sCnc 102.0 mmol/L 11/21/2024 98 - 1 07 HHCCT Glucose SerPl-mCnc 144.0 mg/dL Above high normal 11/21/2024 65 - 99 HHCCT BUN SerPl-mCnc 22.0 mg/dL Above high normal 11/21/2024 8 - 2 1 HHCCT CO2 SerPl-sCnc 20.0 mmol/L Below low normal 11/21/2024 22 - 33 HHCCT Creat SerPl-mCnc 0.8 mg/dL 11/21/2024 0.5 - 1.3 HH CCT BUN/Creat SerPl 28.0 Ratio Above high normal 11/21/2024 10 - 25 HHCCT Sodium SerPl-sCnc 136.0 mmol/L 11/21/2024 136 - 14 5 HHCCT Vit B12 SerPl-mCnc 820.0 pg/mL 11/21/2024 243 - 89 4 HHCCT RDW RBC Auto-Rto 11.9 % 11/21/2024 11.5 - 14.5 HHCCT PMV Bld Auto 11.1 fL 11/21/2024 7.5 - 12.5 HHCCT MCHC RBC Auto-mCnc 35.0 g/dL 11/21/2024 30 - 36 HHCCT Hct VFr Bld Auto 34.6 % Below low normal 11/21/2024 39 - 54 HHCCT RBC num Bld Auto 3.55 Mil/uL Below low normal 11/21/2024 4.5 - 6.2 HHCCT WBC num Bld Auto 9.4 Thou/uL 11/21/2024 4 - 11 HHCCT MCH RBC Qn Auto 34.1 pg Above high normal 11/21/2024 27 - 31 HHCCT Hgb Bld-mCnc 12.1 g/dL Below low normal 11/21/2024 13 - 17.7 HHCCT Platelet num Bld Auto 212.0 Thou/uL 11/21/2024 150 - 450 HHCCT MCV RBC Auto 98.0 fL 11/21/2024 80 - 100 HHCCT POC Glucose 165.0 mg/dL Above high normal 11/21/2024 65 - 99 HHCCT POC Glucose 154.0 mg/dL Above high normal 11/21/2024 65 - 99 HHCCT POC Glucose 167.0 mg/dL Above high normal 11/21/2024 65 - 99 HHCCT POC Glucose 171.0 mg/dL Above high normal 11/20/2024 65 - 99 HHCCT POC Glucose 160.0 mg/dL Above high normal 11/20/2024 65 - 99 HHCCT POC Glucose 173.0 mg/dL Above high normal 11/20/2024 65 - 99 HHCCT POC Glucose 184.0 mg/dL Above high normal 11/20/2024 65 - 99 HHCCT Glucose SerPl-mCnc 202.0 mg/dL Above high normal 11/20/2024 65 - 99 HHCCT Calcium SerPl-mCnc 10.1 mg/dL 11/20/2024 8.7 - 10. 5 HHCCT Potassium SerPl-sCnc 3.8 mmol/L 11/20/2024 3.4 - 5.3 HHCCT Chloride SerPl-sCnc 100.0 mmol/L 11/20/2024 98 - 1 07 HHCCT BUN/Creat SerPl 32.0 Ratio Above high normal 11/20/2024 10 - 25 HHCCT Sodium SerPl-sCnc 134.0 mmol/L Below low normal 11/20/2024 1 36 - 145 HHCCT Creat SerPl-mCnc 0.9 mg/dL 11/20/2024 0.5 - 1.3 HH CCT GFR/BSA.pred SerPlBld QZC-JLH-TpYGuk 89.0 11/20/2024 59 - HHCCT BUN SerPl-mCnc 29.0 mg/dL Above high normal 11/20/2024 8 - 2 1 HHCCT CO2 SerPl-sCnc 23.0 mmol/L 11/20/2024 22 - 33 HH CCT Anion Gap Bld-sCnc 11.0 11/20/2024 7 - 17 HHCCT Phosphate SerPl-mCnc 3.0 mg/dL 11/20/2024 2.7 - 4.5 HHCCT Magnesium SerPl-mCnc 1.8 mg/dL 11/20/2024 1.6 - 2.7 HHCCT RDW RBC Auto-Rto 11.9 % 11/20/2024 11.5 - 14.5 HHCCT Hct VFr Bld Auto 35.7 % Below low normal 11/20/2024 39 - 54 HHCCT RBC num Bld Auto 3.59 Mil/uL Below low normal 11/20/2024 4.5 - 6.2 HHCCT WBC num Bld Auto 10.8 Thou/uL 11/20/2024 4 - 11 HHCCT PMV Bld Auto 11.0 fL 11/20/2024 7.5 - 12.5 HHCCT MCH RBC Qn Auto 32.9 pg Above high normal 11/20/2024 27 - 31 HHCCT MCV RBC Auto 99.0 fL 11/20/2024 80 - 100 HHCCT Platelet num Bld Auto 194.0 Thou/uL 11/20/2024 150 - 450 HHCCT MCHC RBC Auto-mCnc 33.1 g/dL 11/20/2024 30 - 36 HHCCT Hgb Bld-mCnc 11.8 g/dL Below low normal 11/20/2024 13 - 17.7 HHCCT POC Glucose 176.0 mg/dL Above high normal 11/20/2024 65 - 99 HHCCT POC Glucose 197.0 mg/dL Above high normal 11/19/2024 65 - 99 HHCCT POC Glucose 224.0 mg/dL Above high normal 11/19/2024 65 - 99 HHCCT POC Glucose 154.0 mg/dL Above high normal 11/19/2024 65 - 99 HHCCT POC Glucose 173.0 mg/dL Above high normal 11/19/2024 65 - 99 HHCCT POC Glucose 201.0 mg/dL Above high normal 11/18/2024 65 - 99 HHCCT POC Glucose 181.0 mg/dL Above high normal 11/18/2024 65 - 99 HHCCT POC Glucose 159.0 mg/dL Above high normal 11/18/2024 65 - 99 HHCCT Hct VFr Bld Auto 34.3 % Below low normal 11/18/2024 39 - 54 HHCCT MCH RBC Qn Auto 34.3 pg Above high normal 11/18/2024 27 - 31 HHCCT RBC num Bld Auto 3.5 Mil/uL Below low normal 11/18/2024 4.5 - 6.2 HHCCT MCV RBC Auto 98.0 fL Normal 11/18/2024 80 - 100 HHCCT Platelet num Bld Auto 172.0 Thou/uL Normal 11/18/2024 150 - 450 HHCCT WBC num Bld Auto 9.9 Thou/uL Normal 11/18/2024 4 - 11 HHCCT PMV Bld Auto 10.9 fL Normal 11/18/2024 7.5 - 12.5 HHCCT MCHC RBC Auto-mCnc 35.0 g/dL Normal 11/18/2024 30 - 36 HHCCT Hgb Bld-mCnc 12.0 g/dL Below low normal 11/18/2024 13 - 17.7 HHCCT RDW RBC Auto-Rto 11.9 % Normal 11/18/2024 11.5 - 14.5 HHCCT Magnesium SerPl-mCnc 2.0 mg/dL Normal 11/18/2024 1.6 - 2.7 HHCCT Phosphate SerPl-mCnc 3.8 mg/dL Normal 11/18/2024 2.7 - 4.5 HHCCT Potassium SerPl-sCnc 4.0 mmol/L Normal 11/18/2024 3.4 - 5.3 HHCCT Sodium SerPl-sCnc 134.0 mmol/L Below low normal 11/18/2024 1 36 - 145 HHCCT Calcium SerPl-mCnc 9.6 mg/dL Normal 11/18/2024 8.7 - 10.5 HHCCT Chloride SerPl-sCnc 102.0 mmol/L Normal 11/18/2024 98 - 1 07 HHCCT BUN SerPl-mCnc 18.0 mg/dL Normal 11/18/2024 8 - [address] CO2 SerPl-sCnc 19.0 mmol/L Below low normal 11/18/2024 22 - 33 HHCCT GFR/BSA.pred SerPlBld IHN-SLC-VxYHyk >90.0 Normal 11/18/2024 59 - HHCCT BUN/Creat SerPl 23.0 Ratio Normal 11/18/2024 10 - 25 HH CCT Creat SerPl-mCnc 0.8 mg/dL Normal 11/18/2024 0.5 - 1.3 HH CCT Anion Gap Bld-sCnc 13.0 Normal 11/18/2024 7 - 17 HHCCT Glucose SerPl-mCnc 152.0 mg/dL Above high normal 11/18/2024 65 - 99 HHCCT POC Glucose 196.0 mg/dL Above high normal 11/17/2024 65 - 99 HHCCT POC Glucose 195.0 mg/dL Above high normal 11/17/2024 65 - 99 HHCCT Magnesium SerPl-mCnc 1.8 mg/dL Normal 11/17/2024 1.6 - 2.7 HHCCT Potassium SerPl-sCnc 3.7 mmol/L Normal 11/17/2024 3.4 - 5.3 HHCCT Sodium SerPl-sCnc 136.0 mmol/L Normal 11/17/2024 136 - 14 5 HHCCT POC Glucose 160.0 mg/dL Above high normal 11/17/2024 65 - 99 HHCCT Magnesium SerPl-mCnc 1.7 mg/dL Normal 11/17/2024 1.6 - 2.7 HHCCT Potassium SerPl-sCnc 3.9 mmol/L Normal 11/17/2024 3.4 - 5.3 HHCCT Anion Gap Bld-sCnc 11.0 Normal 11/17/2024 7 - 17 HHCCT Chloride SerPl-sCnc 101.0 mmol/L Normal 11/17/2024 98 - 1 07 HHCCT BUN SerPl-mCnc 16.0 mg/dL Normal 11/17/2024 8 - [address] GFR/BSA.pred SerPlBld XKV-VGP-TcBHar >90.0 Normal 11/17/2024 59 - HHCCT Glucose SerPl-mCnc 138.0 mg/dL Above high normal 11/17/2024 65 - 99 HHCCT Sodium SerPl-sCnc 130.0 mmol/L Below low normal 11/17/2024 1 36 - 145 HHCCT Creat SerPl-mCnc 0.6 mg/dL Normal 11/17/2024 0.5 - 1.3 HH CCT CO2 SerPl-sCnc 18.0 mmol/L Below low normal 11/17/2024 22 - 33 HHCCT BUN/Creat SerPl 27.0 Ratio Above high normal 11/17/2024 10 - 25 HHCCT Calcium SerPl-mCnc 9.8 mg/dL Normal 11/17/2024 8.7 - 10.5 HHCCT Phosphate SerPl-mCnc 3.4 mg/dL Normal 11/17/2024 2.7 - 4.5 HHCCT MCH RBC Qn Auto 34.4 pg Above high normal 11/17/2024 27 - 31 HHCCT PMV Bld Auto 11.5 fL Normal 11/17/2024 7.5 - 12.5 HHCCT Hgb Bld-mCnc 12.9 g/dL Below low normal 11/17/2024 13 - 17.7 HHCCT RDW RBC Auto-Rto 11.9 % Normal 11/17/2024 11.5 - 14.5 HHCCT MCV RBC Auto 97.0 fL Normal 11/17/2024 80 - 100 HHCCT MCHC RBC Auto-mCnc 35.3 g/dL Normal 11/17/2024 30 - 36 HHCCT Hct VFr Bld Auto 36.5 % Below low normal 11/17/2024 39 - 54 HHCCT RBC num Bld Auto 3.75 Mil/uL Below low normal 11/17/2024 4.5 - 6.2 HHCCT Platelet num Bld Auto 134.0 Thou/uL Below low normal 11/17/2024 150 - 450 HHCCT WBC num Bld Auto 9.2 Thou/uL Normal 11/17/2024 4 - 11 HHCCT POC Glucose 184.0 mg/dL Above high normal 11/17/2024 65 - 99 HHCCT POC Glucose 184.0 mg/dL Above high normal 11/16/2024 65 - 99 HHCCT POC Glucose 234.0 mg/dL Above high normal 11/16/2024 65 - 99 HHCCT Sodium SerPl-sCnc 135.0 mmol/L Below low normal 11/16/2024 1 36 - 145 HHCCT POC Glucose 144.0 mg/dL Above high normal 11/16/2024 65 - 99 HHCCT POC Glucose 137.0 mg/dL Above high normal 11/16/2024 65 - 99 HHCCT Phosphate SerPl-mCnc 2.7 mg/dL Normal 11/16/2024 2.7 - 4.5 HHCCT Anion Gap Bld-sCnc 10.0 Normal 11/16/2024 7 - 17 HHCCT BUN SerPl-mCnc 13.0 mg/dL Normal 11/16/2024 8 - [address] Calcium SerPl-mCnc 8.5 mg/dL Below low normal 11/16/2024 8.7 - 10.5 HHCCT Creat SerPl-mCnc 0.6 mg/dL Normal 11/16/2024 0.5 - 1.3 HH CCT CO2 SerPl-sCnc 19.0 mmol/L Below low normal 11/16/2024 22 - 33 HHCCT Potassium SerPl-sCnc 4.0 mmol/L Normal 11/16/2024 3.4 - 5.3 HHCCT Chloride SerPl-sCnc 104.0 mmol/L Normal 11/16/2024 98 - 1 07 HHCCT Sodium SerPl-sCnc 133.0 mmol/L Below low normal 11/16/2024 1 36 - 145 HHCCT BUN/Creat SerPl 22.0 Ratio Normal 11/16/2024 10 - 25 HH CCT GFR/BSA.pred SerPlBld ZCL-APD-[id number] >90.0 Normal 11/16/2024 59 - HHCCT Glucose SerPl-mCnc 126.0 mg/dL Above high normal 11/16/2024 65 - 99 HHCCT Magnesium SerPl-mCnc 1.7 mg/dL Normal 11/16/2024 1.6 - 2.7 HHCCT RDW RBC Auto-Rto 11.9 % Normal 11/16/2024 11.5 - 14.5 HHCCT Immature Platelet Fraction 6.2 % Normal 11/16/2024 1.2 - 8.6 HHCCT MCV RBC Auto 97.0 fL Normal 11/16/2024 80 - 100 HHCCT Hgb Bld-mCnc 11.5 g/dL Below low normal 11/16/2024 13 - 17.7 HHCCT MCHC RBC Auto-mCnc 33.8 g/dL Normal 11/16/2024 30 - 36 HHCCT Hct VFr Bld Auto 34.0 % Below low normal 11/16/2024 39 - 54 HHCCT PMV Bld Auto 11.0 fL Normal 11/16/2024 7.5 - 12.5 HHCCT WBC num Bld Auto 9.4 Thou/uL Normal 11/16/2024 4 - 11 HHCCT Platelet num Bld Auto 125.0 Thou/uL Below low normal 11/16/2024 150 - 450 HHCCT MCH RBC Qn Auto 32.9 pg Above high normal 11/16/2024 27 - 31 HHCCT RBC num Bld Auto 3.5 Mil/uL Below low normal 11/16/2024 4.5 - 6.2 HHCCT POC Glucose 171.0 mg/dL Above high normal 11/16/2024 65 - 99 HHCCT POC Glucose 135.0 mg/dL Above high normal 11/15/2024 65 - 99 HHCCT Sodium SerPl-sCnc 134.0 mmol/L Below low normal 11/15/2024 1 36 - 145 HHCCT POC Glucose 171.0 mg/dL Above high normal 11/15/2024 65 - 99 HHCCT Osmolality Ur 507.0 mOsm/Kg Normal 11/15/2024 50 - 1200 H HCCT Sodium Ur-sCnc 94.0 mmol/L Normal 11/15/2024 HH CCT POC Glucose 156.0 mg/dL Above high normal 11/15/2024 65 - 99 HHCCT Magnesium SerPl-mCnc 1.7 mg/dL Normal 11/15/2024 1.6 - 2.7 HHCCT Creat SerPl-mCnc 0.7 mg/dL Normal 11/15/2024 0.5 - 1.3 HH CCT Potassium SerPl-sCnc 3.6 mmol/L Normal 11/15/2024 3.4 - 5.3 HHCCT Calcium SerPl-mCnc 8.6 mg/dL Below low normal 11/15/2024 8.7 - 10.5 HHCCT Sodium SerPl-sCnc 133.0 mmol/L Below low normal 11/15/2024 1 36 - 145 HHCCT BUN/Creat SerPl 17.0 Ratio Normal 11/15/2024 10 - 25 HH CCT Anion Gap Bld-sCnc 11.0 Normal 11/15/2024 7 - 17 HHCCT Glucose SerPl-mCnc 137.0 mg/dL Above high normal 11/15/2024 65 - 99 HHCCT CO2 SerPl-sCnc 21.0 mmol/L Below low normal 11/15/2024 22 - 33 HHCCT BUN SerPl-mCnc 12.0 mg/dL Normal 11/15/2024 8 - [address] Chloride SerPl-sCnc 101.0 mmol/L Normal 11/15/2024 98 - 1 07 HHCCT GFR/BSA.pred SerPlBld [id number] >90.0 Normal 11/15/2024 59 - HHCCT Phosphate SerPl-mCnc 2.7 mg/dL Normal 11/15/2024 2.7 - 4.5 HHCCT RDW RBC Auto-Rto 11.9 % Normal 11/15/2024 11.5 - 14.5 HHCCT PMV Bld Auto 10.7 fL Normal 11/15/2024 7.5 - 12.5 HHCCT MCH RBC Qn Auto 33.9 pg Above high normal 11/15/2024 27 - 31 HHCCT Hgb Bld-mCnc 12.0 g/dL Below low normal 11/15/2024 13 - 17.7 HHCCT Platelet num Bld Auto 137.0 Thou/uL Below low normal 11/15/2024 150 - 450 HHCCT MCHC RBC Auto-mCnc 35.2 g/dL Normal 11/15/2024 30 - 36 HHCCT MCV RBC Auto 96.0 fL Normal 11/15/2024 80 - 100 HHCCT Hct VFr Bld Auto 34.1 % Below low normal 11/15/2024 39 - 54 HHCCT RBC num Bld Auto 3.54 Mil/uL Below low normal 11/15/2024 4.5 - 6.2 HHCCT WBC num Bld Auto 11.0 Thou/uL Normal 11/15/2024 4 - 11 HHCCT POC Glucose 144.0 mg/dL Above high normal 11/15/2024 65 - 99 HHCCT POC Glucose 168.0 mg/dL Above high normal 11/14/2024 65 - 99 HHCCT POC Glucose 177.0 mg/dL Above high normal 11/14/2024 65 - 99 HHCCT POC Glucose 170.0 mg/dL Above high normal 11/14/2024 65 - 99 HHCCT Anion Gap Bld-sCnc 11.0 Normal 11/14/2024 7 - 17 HHCCT Sodium SerPl-sCnc 135.0 mmol/L Below low normal 11/14/2024 1 36 - 145 HHCCT BUN/Creat SerPl 20.0 Ratio Normal 11/14/2024 10 - 25 HH CCT GFR/BSA.pred SerPlBld [id number] >90.0 Normal 11/14/2024 59 - HHCCT CO2 SerPl-sCnc 21.0 mmol/L Below low normal 11/14/2024 22 - 33 HHCCT Potassium SerPl-sCnc 3.8 mmol/L Normal 11/14/2024 3.4 - 5.3 HHCCT BUN SerPl-mCnc 14.0 mg/dL Normal 11/14/2024 8 - [address] Glucose SerPl-mCnc 154.0 mg/dL Above high normal 11/14/2024 65 - 99 HHCCT Calcium SerPl-mCnc 8.5 mg/dL Below low normal 11/14/2024 8.7 - 10.5 HHCCT Creat SerPl-mCnc 0.7 mg/dL Normal 11/14/2024 0.5 - 1.3 HH CCT Chloride SerPl-sCnc 103.0 mmol/L Normal 11/14/2024 98 - 1 07 HHCCT Phosphate SerPl-mCnc 2.7 mg/dL Normal 11/14/2024 2.7 - 4.5 HHCCT Magnesium SerPl-mCnc 1.7 mg/dL Normal 11/14/2024 1.6 - 2.7 HHCCT RBC num Bld Auto 3.41 Mil/uL Below low normal 11/14/2024 4.5 - 6.2 HHCCT RDW RBC Auto-Rto 12.0 % Normal 11/14/2024 11.5 - 14.5 HHCCT PMV Bld Auto 10.5 fL Normal 11/14/2024 7.5 - 12.5 HHCCT Hgb Bld-mCnc 11.8 g/dL Below low normal 11/14/2024 13 - 17.7 HHCCT MCH RBC Qn Auto 34.6 pg Above high normal 11/14/2024 27 - 31 HHCCT WBC num Bld Auto 10.7 Thou/uL Normal 11/14/2024 4 - 11 HHCCT MCHC RBC Auto-mCnc 35.6 g/dL Normal 11/14/2024 30 - 36 HHCCT Immature Platelet Fraction 3.9 % Normal 11/14/2024 1.2 - 8.6 HHCCT Hct VFr Bld Auto 33.1 % Below low normal 11/14/2024 39 - 54 HHCCT Platelet num Bld Auto 141.0 Thou/uL Below low normal 11/14/2024 150 - 450 HHCCT MCV RBC Auto 97.0 fL Normal 11/14/2024 80 - 100 HHCCT POC Glucose 149.0 mg/dL Above high normal 11/14/2024 65 - 99 HHCCT POC Glucose 144.0 mg/dL Above high normal 11/13/2024 65 - 99 HHCCT POC Glucose 149.0 mg/dL Above high normal 11/13/2024 65 - 99 HHCCT POC Glucose 141.0 mg/dL Above high normal 11/13/2024 65 - 99 HHCCT BUN/Creat SerPl 21.0 Ratio Normal 11/13/2024 10 - 25 HH CCT GFR/BSA.pred SerPlBld [id number] >90.0 Normal 11/13/2024 59 - HHCCT Anion Gap Bld-sCnc 9.0 Normal 11/13/2024 7 - 17 HHCCT BUN SerPl-mCnc 17.0 mg/dL Normal 11/13/2024 8 - [address] CO2 SerPl-sCnc 24.0 mmol/L Normal 11/13/2024 22 - 33 HH CCT Creat SerPl-mCnc 0.8 mg/dL Normal 11/13/2024 0.5 - 1.3 HH CCT Glucose SerPl-mCnc 135.0 mg/dL Above high normal 11/13/2024 65 - 99 H[facility]CT Potassium SerPl-sCnc 3.4 mmol/L Normal 11/13/2024 3.4 - 5.3 HHCCT Chloride SerPl-sCnc 103.0 mmol/L Normal 11/13/2024 98 - 1 07 HHCCT Calcium SerPl-mCnc 8.8 mg/dL Normal 11/13/2024 8.7 - 10.5 HHCCT Sodium SerPl-sCnc 136.0 mmol/L Normal 11/13/2024 136 - 14 5 HHCCT Phosphate SerPl-mCnc 2.3 mg/dL Below low normal 11/13/2024 2.7 - 4.5 HHCCT Magnesium SerPl-mCnc 1.8 mg/dL Normal 11/13/2024 1.6 - 2.7 HHCCT PMV Bld Auto 10.4 fL Normal 11/13/2024 7.5 - 12.5 HHCCT Hgb Bld-mCnc 12.2 g/dL Below low normal 11/13/2024 13 - 17.7 HHCCT MCHC RBC Auto-mCnc 33.9 g/dL Normal 11/13/2024 30 - 36 HHCCT MCV RBC Auto 98.0 fL Normal 11/13/2024 80 - 100 HHCCT Hct VFr Bld Auto 36.0 % Below low normal 11/13/2024 39 - 54 HHCCT RBC num Bld Auto 3.67 Mil/uL Below low normal 11/13/2024 4.5 - 6.2 HHCCT Platelet num Bld Auto 149.0 Thou/uL Below low normal 11/13/2024 150 - 450 HHCCT WBC num Bld Auto 9.8 Thou/uL Normal 11/13/2024 4 - 11 HHCCT MCH RBC Qn Auto 33.2 pg Above high normal 11/13/2024 27 - 31 HHCCT RDW RBC Auto-Rto 12.2 % Normal 11/13/2024 11.5 - 14.5 HHCCT POC Glucose 146.0 mg/dL Above high normal 11/13/2024 65 - 99 HHCCT POC Glucose 142.0 mg/dL Above high normal 11/12/2024 65 - 99 HHCCT LMWH PPP Charter Representative-aCnc 1.0 IU/mL Normal 11/12/2024 HHCCT Anticoagulant APIXABAN (ELIQUIS) Normal 11/12/2024 HHCCT POC Glucose 156.0 mg/dL Above high normal 11/12/2024 65 - 99 CCT LMWH PPP Charter Representative-aCnc 1.35 IU/mL Normal 11/12/2024 HHCCT Anticoagulant APIXABAN (ELIQUIS) Normal 11/12/2024 HHCCT POC Glucose 136.0 mg/dL Above high normal 11/12/2024 65 - 99 HHCCT POC Glucose 141.0 mg/dL Above high normal 11/12/2024 65 - 99 HHCCT BUN SerPl-mCnc 15.0 mg/dL Normal 11/12/2024 8 - [address] CO2 SerPl-sCnc 23.0 mmol/L Normal 11/12/2024 22 - 33 HH CCT Anion Gap Bld-sCnc 11.0 Normal 11/12/2024 7 - 17 HHCCT Creat SerPl-mCnc 0.9 mg/dL Normal 11/12/2024 0.5 - 1.3 HH CCT GFR/BSA.pred SerPlBld [id number] 89.0 Normal 11/12/2024 59 - HHCCT Glucose SerPl-mCnc 165.0 mg/dL Above high normal 11/12/2024 65 - 99 HHCCT Calcium SerPl-mCnc 8.8 mg/dL Normal 11/12/2024 8.7 - 10.5 HHCCT BUN/Creat SerPl 17.0 Ratio Normal 11/12/2024 10 - 25 HH CCT Potassium SerPl-sCnc 3.7 mmol/L Normal 11/12/2024 3.4 - 5.3 HHCCT Sodium SerPl-sCnc 133.0 mmol/L Below low normal 11/12/2024 1 36 - 145 HHCCT Chloride SerPl-sCnc 99.0 mmol/L Normal 11/12/2024 98 - 10 7 HHCCT Phosphate SerPl-mCnc 3.1 mg/dL Normal 11/12/2024 2.7 - 4.5 HHCCT Magnesium SerPl-mCnc 1.4 mg/dL Below low normal 11/12/2024 1.6 - 2.7 HHCCT Est. average glucose Bld gHb Est-mCnc 146.0 mg/dL Normal 11/12/2024 HHCCT Hgb A1c MFr Bld 6.7 % Above high normal 11/12/2024 - 5.7 HHCCT Imm Granulocytes num Bld Auto 0.04 Thou/uL Normal 11/12/2024 0 - 0.1 HHCCT Neutrophils/leuk NFr Bld Auto 74.5 % Normal 11/12/2024 HHCCT PMV Bld Auto 10.3 fL Normal 11/12/2024 7.5 - 12.5 HHCCT Eosinophil num Bld Auto 0.02 Thou/uL Normal 11/12/2024 0 - 0.7 HHCCT MCH RBC Qn Auto 33.0 pg Above high normal 11/12/2024 27 - 31 HHCCT Hct VFr Bld Auto 35.3 % Below low normal 11/12/2024 39 - 54 HHCCT Hgb Bld-mCnc 12.2 g/dL Below low normal 11/12/2024 13 - 17.7 HHCCT Neutrophils num Bld Auto 8.69 Thou/uL Above high normal 11/12/2024 2 - 7.5 HHCCT MCHC RBC Auto-mCnc 34.6 g/dL Normal 11/12/2024 30 - 36 HHCCT Basophils num Bld Auto 0.1 Thou/uL Normal 11/12/2024 0 - 0.2 HHCCT Monocytes num Bld Auto 1.31 Thou/uL Normal 11/12/2024 0.2 - 1.5 HHCCT Imm Granulocytes/leuk NFr Bld Auto 0.3 % Normal 11/12/2024 HHCCT WBC num Bld Auto 11.7 Thou/uL Above high normal 11/12/2024 4 - 11 HHCCT Lymphocytes num Bld Auto 1.5 Thou/uL Normal 11/12/2024 1.5 - 4.5 HHCCT Lymphocytes/leuk NFr Bld Auto 12.9 % Normal 11/12/2024 HHCCT Eosinophil/leuk NFr Bld Auto 0.2 % Normal 11/12/2024 HHCCT Basophils/leuk NFr Bld Auto 0.9 % Normal 11/12/2024 HHCCT Platelet num Bld Auto 158.0 Thou/uL Normal 11/12/2024 150 - 450 HHCCT Monocytes/leuk NFr Bld Auto 11.2 % Normal 11/12/2024 HHCCT MCV RBC Auto 95.0 fL Normal 11/12/2024 80 - 100 HHCCT RBC num Bld Auto 3.7 Mil/uL Below low normal 11/12/2024 4.5 - 6.2 HHCCT RDW RBC Auto-Rto 12.1 % Normal 11/12/2024 11.5 - 14.5 HHCCT POC Glucose 182.0 mg/dL Above high normal 11/12/2024 65 - 99 HHCCT CO2 SerPl-sCnc 19.0 mmol/L Below low normal 11/12/2024 22 - 33 HHCCT Calcium SerPl-mCnc 8.9 mg/dL Normal 11/12/2024 8.7 - 10.5 HHCCT GFR/BSA.pred SerPlBld [id number]-[id number] >90.0 Normal 11/12/2024 59 - HHCCT BUN/Creat SerPl 19.0 Ratio Normal 11/12/2024 10 - 25 HH CCT Potassium SerPl-sCnc 3.4 mmol/L Normal 11/12/2024 3.4 - 5.3 HHCCT Sodium SerPl-sCnc 133.0 mmol/L Below low normal 11/12/2024 1 36 - 145 HHCCT Glucose SerPl-mCnc 174.0 mg/dL Above high normal 11/12/2024 65 - 99 HHCCT Creat SerPl-mCnc 0.8 mg/dL Normal 11/12/2024 0.5 - 1.3 HH CCT Chloride SerPl-sCnc 99.0 mmol/L Normal 11/12/2024 98 - 10 7 HHCCT Anion Gap Bld-sCnc 15.0 Normal 11/12/2024 7 - 17 HHCCT BUN SerPl-mCnc 15.0 mg/dL Normal 11/12/2024 8 - [address] aPTT PPP 33.0 seconds Normal 11/12/2024 25 - 36 HHCCT Anticoagulant APIXABAN (ELIQUIS) Normal 11/11/2024 HHCCT Prothrombin time 15.0 seconds Above high normal 11/12/2024 1 0 - 13.5 HHCCT INR PPP 1.3 Normal 11/12/2024 HHCCT Anticoagulant APIXABAN (ELIQUIS) Normal 11/11/2024 HHCCT TT imm Bovine Thrombin PPP 16.9 seconds Normal 11/12/2024 12.7 - 19.2 HHCCT Anticoagulant APIXABAN (ELIQUIS) Normal 11/11/2024 HHCCT RBC num Bld Auto 3.97 Mil/uL Below low normal 11/12/2024 4.5 - 6.2 HHCCT Monocytes/leuk NFr Bld Auto 13.6 % Normal 11/12/2024 HHCCT Imm Granulocytes num Bld Auto 0.08 Thou/uL Normal 11/12/2024 0 - 0.1 HHCCT Eosinophil/leuk NFr Bld Auto 0.6 % Normal 11/12/2024 HHCCT RDW RBC Auto-Rto 12.0 % Normal 11/12/2024 11.5 - 14.5 HHCCT MCHC RBC Auto-mCnc 34.4 g/dL Normal 11/12/2024 30 - 36 HHCCT PMV Bld Auto 10.7 fL Normal 11/12/2024 7.5 - 12.5 HHCCT Basophils/leuk NFr Bld Auto 0.6 % Normal 11/12/2024 HHCCT Hct VFr Bld Auto 37.8 % Below low normal 11/12/2024 39 - 54 HHCCT WBC num Bld Auto 15.8 Thou/uL Above high normal 11/12/2024 4 - 11 HHCCT Eosinophil num Bld Auto 0.1 Thou/uL Normal 11/12/2024 0 - 0.7 HHCCT Lymphocytes num Bld Auto 3.08 Thou/uL Normal 11/12/2024 1.5 - 4.5 HHCCT MCH RBC Qn Auto 32.7 pg Above high normal 11/12/2024 27 - 31 HHCCT Monocytes num Bld Auto 2.15 Thou/uL Above high normal 11/12/2024 0.2 - 1.5 HHCCT Imm Granulocytes/leuk NFr Bld Auto 0.5 % Normal 11/12/2024 HHCCT Platelet num Bld Auto 189.0 Thou/uL Normal 11/12/2024 150 - 450 HHCCT MCV RBC Auto 95.0 fL Normal 11/12/2024 80 - 100 HHCCT Neutrophils num Bld Auto 10.32 Thou/uL Above high normal 11/12/2024 2 - 7.5 HHCCT Neutrophils/leuk NFr Bld Auto 65.2 % Normal 11/12/2024 HHCCT Basophils num Bld Auto 0.09 Thou/uL Normal 11/12/2024 0 - 0.2 HHCCT Lymphocytes/leuk NFr Bld Auto 19.5 % Normal 11/12/2024 HHCCT Hgb Bld-mCnc 13.0 g/dL Normal 11/12/2024 13 - 17.7 HHCCT Prothrombin time 30.3 seconds Above high normal 01/04/2024 1 0 - 13.5 HHCCT INR PPP 2.7 Normal 01/04/2024 HHCCT Anticoagulant WARFARIN (COUMADIN) Normal 01/04/2024 HHCCT CRP SerPl-mCnc 3.7 mg/dL Above high normal 01/03/2024 0 - 0. 49 HHCCT INR PPP 2.1 Normal 01/03/2024 HHCCT Prothrombin time 24.0 seconds Above high normal 01/03/2024 1 0 - 13.5 HHCCT Anticoagulant WARFARIN (COUMADIN) Normal 01/03/2024 HHCCT ESR Bld Qn 31.0 MM/HR Above high normal 01/03/2024 - 20 HHCCT Prothrombin time 20.9 seconds Above high normal 01/02/2024 1 0 - 13.5 HHCCT INR PPP 1.8 Normal 01/02/2024 HHCCT Anticoagulant WARFARIN (COUMADIN) Normal 01/02/2024 HHCCT Vancomycin SerPl-mCnc 17.0 mg/L Normal 01/01/2024 HHCCT Time of last dose Information not given Normal 01/01/2024 HHCCT CRP SerPl-mCnc 2.3 mg/dL Above high normal 01/01/2024 0 - 0. 49 HHCCT Magnesium SerPl-mCnc 1.6 mg/dL Normal 01/01/2024 1.6 - 2.7 HHCCT GFR/BSA.pred SerPlBld [id number]-[id number] >90.0 Normal 01/01/2024 59 - HHCCT ALT SerPl-cCnc 13.0 U/L Normal 01/01/2024 10 - 55 HHCC T Albumin/Glob SerPl 0.9 Ratio Below low normal 01/01/2024 1 - 3 HHCCT BUN SerPl-mCnc 8.0 mg/dL Normal 01/01/2024 8 - 21 HHCC T Calcium SerPl-mCnc 9.0 mg/dL Normal 01/01/2024 8.7 - 10.5 HHCCT Globulin Ser Calc-mCnc 3.3 g/dL Normal 01/01/2024 1.5 - 3.9 HHCCT Prot SerPl-mCnc 6.4 g/dL Normal 01/01/2024 6.3 - 8.[address] Potassium SerPl-sCnc 3.6 mmol/L Normal 01/01/2024 3.4 - 5.3 HHCCT CO2 SerPl-sCnc 28.0 mmol/L Normal 01/01/2024 22 - 33 HH CCT AST SerPl-cCnc 28.0 U/L Normal 01/01/2024 10 - 55 HHCC T Creat SerPl-mCnc 0.6 mg/dL Normal 01/01/2024 0.5 - 1.3 HH CCT Albumin SerPl-mCnc 3.1 g/dL Below low normal 01/01/2024 3.4 - 4.8 HHCCT Anion Gap Bld-sCnc 9.0 Normal 01/01/2024 7 - 17 HHCCT Glucose SerPl-mCnc 106.0 mg/dL Above high normal 01/01/2024 65 - 99 HHCCT Sodium SerPl-sCnc 138.0 mmol/L Normal 01/01/2024 136 - 14 5 HHCCT BUN/Creat SerPl 13.0 Ratio Normal 01/01/2024 10 - 25 HH CCT ALP SerPl-cCnc 103.0 U/L Normal 01/01/2024 45 - 128 HHCC T Bilirub SerPl-mCnc 0.4 mg/dL Normal 01/01/2024 0.2 - 1 HHCCT Chloride SerPl-sCnc 101.0 mmol/L Normal 01/01/2024 98 - 1 07 HHCCT ESR Bld Qn 38.0 MM/HR Above high normal 01/01/2024 - 20 HHCCT Prothrombin time 15.9 seconds Above high normal 01/01/2024 1 0 - 13.5 HHCCT INR PPP 1.4 Normal 01/01/2024 HHCCT Anticoagulant WARFARIN (COUMADIN) Normal 01/01/2024 HHCCT Lymphocytes/leuk NFr Bld Auto 18.9 % Normal 01/01/2024 HHCCT RDW RBC Auto-Rto 15.7 % Above high normal 01/01/2024 11.5 - 14.5 HHCCT Lymphocytes num Bld Auto 0.86 Thou/uL Below low normal 01/01/2024 1.5 - 4.5 HHCCT Neutrophils num Bld Auto 2.62 Thou/uL Normal 01/01/2024 2 - 7.5 HHCCT Basophils/leuk NFr Bld Auto 0.7 % Normal 01/01/2024 HHCCT Platelet num Bld Auto 128.0 Thou/uL Below low normal 01/01/2024 150 - 450 HHCCT Eosinophil num Bld Auto 0.23 Thou/uL Normal 01/01/2024 0 - 0.7 HHCCT MCHC RBC Auto-mCnc 32.3 g/dL Normal 01/01/2024 30 - 36 HHCCT RBC num Bld Auto 2.96 Mil/uL Below low normal 01/01/2024 4.5 - 6.2 HHCCT MCH RBC Qn Auto 32.8 pg Above high normal 01/01/2024 27 - 31 HHCCT Hct VFr Bld Auto 30.0 % Below low normal 01/01/2024 39 - 54 HHCCT Neutrophils/leuk NFr Bld Auto 57.5 % Normal 01/01/2024 HHCCT Monocytes num Bld Auto 0.79 Thou/uL Normal 01/01/2024 0.2 - 1.5 HHCCT Monocytes/leuk NFr Bld Auto 17.4 % Normal 01/01/2024 HHCCT Imm Granulocytes/leuk NFr Bld Auto 0.4 % Normal 01/01/2024 HHCCT Eosinophil/leuk NFr Bld Auto 5.1 % Normal 01/01/2024 HHCCT Basophils num Bld Auto 0.03 Thou/uL Normal 01/01/2024 0 - 0.2 HHCCT PMV Bld Auto 10.3 fL Normal 01/01/2024 7.5 - 12.5 HHCCT WBC num Bld Auto 4.6 Thou/uL Normal 01/01/2024 4 - 11 HHCCT MCV RBC Auto 101.0 fL Above high normal 01/01/2024 80 - 100 HHCCT Hgb Bld-mCnc 9.7 g/dL Below low normal 01/01/2024 13 - 17.7 HHCCT Imm Granulocytes num Bld Auto 0.02 Thou/uL Normal 01/01/2024 0 - 0.1 HHCCT Prothrombin time 14.4 seconds Above high normal 12/31/2023 1 0 - 13.5 HHCCT INR PPP 1.3 Normal 12/31/2023 HHCCT Anticoagulant WARFARIN (COUMADIN) Normal 12/31/2023 HHCCT Prothrombin time 13.0 seconds Normal 12/30/2023 10 - 13.5 HHCCT INR PPP 1.1 Normal 12/30/2023 HHCCT Anticoagulant WARFARIN (COUMADIN) Normal 12/30/2023 HHCCT Prothrombin time 12.8 seconds Normal 12/29/2023 10 - 13.5 HHCCT INR PPP 1.1 Normal 12/29/2023 HHCCT Anticoagulant WARFARIN (COUMADIN) Normal 12/29/2023 HHCCT INR PPP 1.1 Normal 12/28/2023 HHCCT Prothrombin time 12.9 seconds Normal 12/28/2023 10 - 13.5 HHCCT Anticoagulant WARFARIN (COUMADIN) Normal 12/28/2023 HHCCT Vancomycin SerPl-mCnc 18.0 mg/L Normal 12/27/2023 HHCCT Time of last dose Information not given Normal 12/27/2023 HHCCT INR PPP 1.1 Normal 12/26/2023 HHCCT Prothrombin time 12.6 seconds Normal 12/26/2023 10 - 13.5 HHCCT Anticoagulant WARFARIN (COUMADIN), BEING HELD Normal 12/26/2023 HHCCT CRP SerPl-mCnc 1.66 mg/dL Above high normal 12/25/2023 0 - 0 .49 HHCCT ALP SerPl-cCnc 111.0 U/L Normal 12/25/2023 45 - 128 HHCC T Anion Gap Bld-sCnc 9.0 Normal 12/25/2023 7 - 17 HHCCT CO2 SerPl-sCnc 31.0 mmol/L Normal 12/25/2023 22 - 33 HH CCT BUN/Creat SerPl 10.0 Ratio Normal 12/25/2023 10 - 25 HH CCT ALT SerPl-cCnc 17.0 U/L Normal 12/25/2023 10 - 55 HHCC T Sodium SerPl-sCnc 138.0 mmol/L Normal 12/25/2023 136 - 14 5 HHCCT Glucose SerPl-mCnc 95.0 mg/dL Normal 12/25/2023 65 - 99 HHCCT Globulin Ser Calc-mCnc 3.4 g/dL Normal 12/25/2023 1.5 - 3.9 HHCCT GFR/BSA.pred SerPlBld [id number] >90.0 Normal 12/25/2023 59 - HHCCT AST SerPl-cCnc 29.0 U/L Normal 12/25/2023 10 - 55 HHCC T Potassium SerPl-sCnc 3.7 mmol/L Normal 12/25/2023 3.4 - 5.3 HHCCT Prot SerPl-mCnc 6.6 g/dL Normal 12/25/2023 6.3 - 8.[address] Creat SerPl-mCnc 0.6 mg/dL Normal 12/25/2023 0.5 - 1.3 HH CCT BUN SerPl-mCnc 6.0 mg/dL Below low normal 12/25/2023 8 - 21 HHCCT Calcium SerPl-mCnc 9.2 mg/dL Normal 12/25/2023 8.7 - 10.5 HHCCT Albumin/Glob SerPl 0.9 Ratio Below low normal 12/25/2023 1 - 3 HHCCT Chloride SerPl-sCnc 98.0 mmol/L Normal 12/25/2023 98 - 10 7 HHCCT Bilirub SerPl-mCnc 0.6 mg/dL Normal 12/25/2023 0.2 - 1 HHCCT Albumin SerPl-mCnc 3.2 g/dL Below low normal 12/25/2023 3.4 - 4.8 HHCCT Magnesium SerPl-mCnc 1.8 mg/dL Normal 12/25/2023 1.6 - 2.7 HHCCT ESR Bld Qn 14.0 MM/HR Normal 12/25/2023 - 20 HHCCT Neutrophils num Bld Auto 2.53 Thou/uL Normal 12/25/2023 2 - 7.5 HHCCT Imm Granulocytes/leuk NFr Bld Auto 0.2 % Normal 12/25/2023 HHCCT Hgb Bld-mCnc 9.9 g/dL Below low normal 12/25/2023 13 - 17.7 HHCCT Monocytes num Bld Auto 0.73 Thou/uL Normal 12/25/2023 0.2 - 1.5 HHCCT Lymphocytes/leuk NFr Bld Auto 24.1 % Normal 12/25/2023 HHCCT WBC num Bld Auto 4.6 Thou/uL Normal 12/25/2023 4 - 11 HHCCT RBC num Bld Auto 3.15 Mil/uL Below low normal 12/25/2023 4.5 - 6.2 HHCCT Basophils/leuk NFr Bld Auto 0.4 % Normal 12/25/2023 HHCCT Lymphocytes num Bld Auto 1.11 Thou/uL Below low normal 12/25/2023 1.5 - 4.5 HHCCT Neutrophils/leuk NFr Bld Auto 55.1 % Normal 12/25/2023 HHCCT Monocytes/leuk NFr Bld Auto 15.9 % Normal 12/25/2023 HHCCT Basophils num Bld Auto 0.02 Thou/uL Normal 12/25/2023 0 - 0.2 HHCCT Eosinophil/leuk NFr Bld Auto 4.3 % Normal 12/25/2023 HHCCT MCHC RBC Auto-mCnc 32.2 g/dL Normal 12/25/2023 30 - 36 HHCCT Eosinophil num Bld Auto 0.2 Thou/uL Normal 12/25/2023 0 - 0.7 HHCCT MCV RBC Auto 98.0 fL Normal 12/25/2023 80 - 100 HHCCT RDW RBC Auto-Rto 15.2 % Above high normal 12/25/2023 11.5 - 14.5 HHCCT Imm Granulocytes num Bld Auto 0.01 Thou/uL Normal 12/25/2023 0 - 0.1 HHCCT Hct VFr Bld Auto 30.7 % Below low normal 12/25/2023 39 - 54 HHCCT PMV Bld Auto 10.5 fL Normal 12/25/2023 7.5 - 12.5 HHCCT Platelet num Bld Auto 113.0 Thou/uL Below low normal 12/25/2023 150 - 450 HHCCT MCH RBC Qn Auto 31.4 pg Above high normal 12/25/2023 27 - 31 HHCCT CO2 SerPl-sCnc 27.0 mmol/L Normal 12/21/2023 22 - 33 HH CCT Sodium SerPl-sCnc 136.0 mmol/L Normal 12/21/2023 136 - 14 5 HHCCT Calcium SerPl-mCnc 8.6 mg/dL Below low normal 12/21/2023 8.7 - 10.5 HHCCT Potassium SerPl-sCnc 3.5 mmol/L Normal 12/21/2023 3.4 - 5.3 HHCCT Anion Gap Bld-sCnc 10.0 Normal 12/21/2023 7 - 17 HHCCT GFR/BSA.pred SerPlBld [id number] >90.0 Normal 12/21/2023 59 - HHCCT Glucose SerPl-mCnc 125.0 mg/dL Above high normal 12/21/2023 65 - 99 HHCCT BUN/Creat SerPl 12.0 Ratio Normal 12/21/2023 10 - 25 HH CCT BUN SerPl-mCnc 6.0 mg/dL Below low normal 12/21/2023 8 - 21 HHCCT Chloride SerPl-sCnc 99.0 mmol/L Normal 12/21/2023 98 - 10 7 HHCCT Creat SerPl-mCnc 0.5 mg/dL Normal 12/21/2023 0.5 - 1.3 HH CCT Magnesium SerPl-mCnc 1.6 mg/dL Normal 12/21/2023 1.6 - 2.7 HHCCT PMV Bld Auto 10.2 fL Normal 12/20/2023 7.5 - 12.5 HHCCT Monocytes/leuk NFr Bld Auto 12.9 % Normal 12/20/2023 HHCCT Eosinophil num Bld Auto 0.23 Thou/uL Normal 12/20/2023 0 - 0.7 HHCCT Lymphocytes/leuk NFr Bld Auto 31.0 % Normal 12/20/2023 HHCCT RDW RBC Auto-Rto 15.2 % Above high normal 12/20/2023 11.5 - 14.5 HHCCT Imm Granulocytes num Bld Auto 0.02 Thou/uL Normal 12/20/2023 0 - 0.1 HHCCT Hct VFr Bld Auto 29.6 % Below low normal 12/20/2023 39 - 54 HHCCT Platelet num Bld Auto 112.0 Thou/uL Below low normal 12/20/2023 150 - 450 HHCCT WBC num Bld Auto 5.0 Thou/uL Normal 12/20/2023 4 - 11 HHCCT Basophils/leuk NFr Bld Auto 0.8 % Normal 12/20/2023 HHCCT Neutrophils num Bld Auto 2.5 Thou/uL Normal 12/20/2023 2 - 7.5 HHCCT Eosinophil/leuk NFr Bld Auto 4.6 % Normal 12/20/2023 HHCCT MCV RBC Auto 97.0 fL Normal 12/20/2023 80 - 100 HHCCT MCHC RBC Auto-mCnc 33.1 g/dL Normal 12/20/2023 30 - 36 HHCCT Basophils num Bld Auto 0.04 Thou/uL Normal 12/20/2023 0 - 0.2 HHCCT Imm Granulocytes/leuk NFr Bld Auto 0.4 % Normal 12/20/2023 HHCCT Neutrophils/leuk NFr Bld Auto 50.3 % Normal 12/20/2023 HHCCT Monocytes num Bld Auto 0.64 Thou/uL Normal 12/20/2023 0.2 - 1.5 HHCCT RBC num Bld Auto 3.05 Mil/uL Below low normal 12/20/2023 4.5 - 6.2 HHCCT Hgb Bld-mCnc 9.8 g/dL Below low normal 12/20/2023 13 - 17.7 HHCCT Lymphocytes num Bld Auto 1.54 Thou/uL Normal 12/20/2023 1.5 - 4.5 HHCCT MCH RBC Qn Auto 32.1 pg Above high normal 12/20/2023 27 - 31 HHCCT GFR/BSA.pred SerPlBld BHL-[id number]-YoQBwl >90.0 Normal 12/20/2023 59 - HHCCT BUN SerPl-mCnc 6.0 mg/dL Below low normal 12/20/2023 8 - 21 HHCCT Chloride SerPl-sCnc 100.0 mmol/L Normal 12/20/2023 98 - 1 07 HHCCT Calcium SerPl-mCnc 8.7 mg/dL Normal 12/20/2023 8.7 - 10.5 HHCCT Sodium SerPl-sCnc 138.0 mmol/L Normal 12/20/2023 136 - 14 5 HHCCT BUN/Creat SerPl 10.0 Ratio Normal 12/20/2023 10 - 25 HH CCT CO2 SerPl-sCnc 28.0 mmol/L Normal 12/20/2023 22 - 33 HH CCT Anion Gap Bld-sCnc 10.0 Normal 12/20/2023 7 - 17 HHCCT Creat SerPl-mCnc 0.6 mg/dL Normal 12/20/2023 0.5 - 1.3 HH CCT Glucose SerPl-mCnc 84.0 mg/dL Normal 12/20/2023 65 - 99 HHCCT Potassium SerPl-sCnc 3.6 mmol/L Normal 12/20/2023 3.4 - 5.3 HHCCT Magnesium SerPl-mCnc 1.5 mg/dL Below low normal 12/20/2023 1.6 - 2.7 HHCCT Vancomycin SerPl-mCnc 18.0 mg/L Normal 12/20/2023 HHCCT Time of last dose Information not given Normal 12/20/2023 HHCCT WBC num Bld Auto 4.7 Thou/uL Normal 12/19/2023 4 - 11 HHCCT Platelet num Bld Auto 108.0 Thou/uL Below low normal 12/19/2023 150 - 450 HHCCT Magnesium SerPl-mCnc 1.6 mg/dL Normal 12/18/2023 1.6 - 2.7 HHCCT Potassium SerPl-sCnc 3.7 mmol/L Normal 12/18/2023 3.4 - 5.3 HHCCT Albumin SerPl-mCnc 3.0 g/dL Below low normal 12/18/2023 3.4 - 4.8 HHCCT Chloride SerPl-sCnc 102.0 mmol/L Normal 12/18/2023 98 - 1 07 HHCCT Glucose SerPl-mCnc 94.0 mg/dL Normal 12/18/2023 65 - 99 HHCCT Albumin/Glob SerPl 1.0 Ratio Normal 12/18/2023 1 - 3 HHCCT CO2 SerPl-sCnc 28.0 mmol/L Normal 12/18/2023 22 - 33 HH CCT ALT SerPl-cCnc 19.0 U/L Normal 12/18/2023 10 - 55 HHCC T Calcium SerPl-mCnc 8.4 mg/dL Below low normal 12/18/2023 8.7 - 10.5 HHCCT Creat SerPl-mCnc 0.5 mg/dL Normal 12/18/2023 0.5 - 1.3 HH CCT Prot SerPl-mCnc 6.0 g/dL Below low normal 12/18/2023 6.3 - 8.3 HHCCT Globulin Ser Calc-mCnc 3.0 g/dL Normal 12/18/2023 1.5 - 3.9 HHCCT Anion Gap Bld-sCnc 9.0 Normal 12/18/2023 7 - 17 HHCCT BUN/Creat SerPl 10.0 Ratio Normal 12/18/2023 10 - 25 HH CCT GFR/BSA.pred SerPlBld [id number]-SGX-[id number] >90.0 Normal 12/18/2023 59 - HHCCT Sodium SerPl-sCnc 139.0 mmol/L Normal 12/18/2023 136 - 14 5 HHCCT AST SerPl-cCnc 32.0 U/L Normal 12/18/2023 10 - 55 HHCC T ALP SerPl-cCnc 115.0 U/L Normal 12/18/2023 45 - 128 HHCC T BUN SerPl-mCnc 5.0 mg/dL Below low normal 12/18/2023 8 - 21 HHCCT Potassium SerPl-sCnc 3.1 mmol/L Below low normal 12/18/2023 3.4 - 5.3 [facility] Bilirub SerPl-mCnc 0.5 mg/dL Normal 12/18/2023 0.2 - 1 [facility] CRP SerPl-mCnc 1.0 mg/dL Above high normal 12/18/2023 0 - 0. 49 [facility] Magnesium SerPl-mCnc 1.5 mg/dL Below low normal 12/18/2023 1.6 - 2.7 [facility] ESR Bld Qn 26.0 MM/HR Above high normal 12/18/2023 - 20 [facility] Platelet num Bld Auto 115.0 Thou/uL Below low normal 12/18/2023 150 - 450 [facility] Basophils/leuk NFr Bld Auto 1.0 % Normal 12/18/2023 [facility] WBC num Bld Auto 4.8 Thou/uL Normal 12/18/2023 4 - 11 [facility] Imm Granulocytes/leuk NFr Bld Auto 0.2 % Normal 12/18/2023 [facility] Lymphocytes/leuk NFr Bld Auto 27.3 % Normal 12/18/2023 [facility] RBC num Bld Auto 2.97 Mil/uL Below low normal 12/18/2023 4.5 - 6.2 [facility] MCH RBC Qn Auto 32.7 pg Above high normal 12/18/2023 27 - 31 [facility] Imm Granulocytes num Bld Auto 0.01 Thou/uL Normal 12/18/2023 0 - 0.1 [facility] Lymphocytes num Bld Auto 1.3 Thou/uL Below low normal 12/18/2023 1.5 - 4.5 [facility] Hgb Bld-mCnc 9.7 g/dL Below low normal 12/18/2023 13 - 17.7 [facility] Eosinophil/leuk NFr Bld Auto 3.8 % Normal 12/18/2023 [facility] MCV RBC Auto 97.0 fL Normal 12/18/2023 80 - 100 [facility] Monocytes/leuk NFr Bld Auto 13.0 % Normal 12/18/2023 [facility] PMV Bld Auto 10.0 fL Normal 12/18/2023 7.5 - 12.5 [facility] Eosinophil num Bld Auto 0.18 Thou/uL Normal 12/18/2023 0 - 0.7 [facility] Hct VFr Bld Auto 28.8 % Below low normal 12/18/2023 39 - 54 [facility] Neutrophils/leuk NFr Bld Auto 54.7 % Normal 12/18/2023 [facility] RDW RBC Auto-Rto 14.8 % Above high normal 12/18/2023 11.5 - 14.5 [facility]CT MCHC RBC Auto-mCnc 33.7 g/dL Normal 12/18/2023 30 - 36 [facility] Neutrophils num Bld Auto 2.61 Thou/uL Normal 12/18/2023 2 - 7.5 [facility] Basophils num Bld Auto 0.05 Thou/uL Normal 12/18/2023 0 - 0.2 [facility] Monocytes num Bld Auto 0.62 Thou/uL Normal 12/18/2023 0.2 - 1.5 [facility] Vancomycin SerPl-mCnc 17.0 mg/L Normal 12/17/2023 [facility] Time of last dose Information not given Normal 12/17/2023 [facility] Potassium SerPl-sCnc 4.2 mmol/L Normal 12/14/2023 3.4 - 5.3 [facility] Potassium SerPl-sCnc 3.1 mmol/L Below low normal 12/14/2023 3.4 - 5.3 [facility] Chloride SerPl-sCnc 98.0 mmol/L Normal 12/13/2023 98 - 10 7 [facility] CO2 SerPl-sCnc 25.0 mmol/L Normal 12/13/2023 22 - 33 [facility] Glucose SerPl-mCnc 87.0 mg/dL Normal 12/13/2023 65 - 99 [facility] GFR/BSA.pred SerPlBld [id number] >90.0 Normal 12/13/2023 59 - [facility]CT Creat SerPl-mCnc 0.6 mg/dL Normal 12/13/2023 0.5 - 1.3 [facility] Calcium SerPl-mCnc 8.4 mg/dL Below low normal 12/13/2023 8.7 - 10.5 [facility] Sodium SerPl-sCnc 133.0 mmol/L Below low normal 12/13/2023 1 36 - 145 [facility]CT BUN SerPl-mCnc 6.0 mg/dL Below low normal 12/13/2023 8 - 21 [facility] Potassium SerPl-sCnc 3.3 mmol/L Below low normal 12/13/2023 3.4 - 5.3 [facility] Anion Gap Bld-sCnc 10.0 Normal 12/13/2023 7 - 17 [facility] BUN/Creat SerPl 10.0 Ratio Normal 12/13/2023 10 - 25 [facility] Osmolality Ur 393.0 mOsm/Kg Normal 12/12/2023 40 - 1400 H [facility] Sodium Ur-sCnc 117.0 mmol/L Normal 12/12/2023 H [facility] Osmolality SerPl 273.0 mOsm/Kg Below low normal 12/11/2023 2 85 - 295 [facility] Prot SerPl-mCnc 7.4 g/dL Normal 12/11/2023 6.3 - 8.[address] Glucose SerPl-mCnc 125.0 mg/dL Above high normal 12/11/2023 65 - 99 [facility]CT ALT SerPl-cCnc 28.0 U/L Normal 12/11/2023 10 - 55 [facility] T Potassium SerPl-sCnc 3.9 mmol/L Normal 12/11/2023 3.4 - 5.3 [facility]CT Chloride SerPl-sCnc 93.0 mmol/L Below low normal 12/11/2023 98 - 107 [facility] Creat SerPl-mCnc 0.6 mg/dL Normal 12/11/2023 0.5 - 1.3 [facility] Sodium SerPl-sCnc 129.0 mmol/L Below low normal 12/11/2023 1 36 - 145 [facility]CT AST SerPl-cCnc 33.0 U/L Normal 12/11/2023 10 - 55 [facility] T ALP SerPl-cCnc 129.0 U/L Above high normal 12/11/2023 45 - 1 28 [facility] BUN SerPl-mCnc 7.0 mg/dL Below low normal 12/11/2023 8 - 21 [facility] Anion Gap Bld-sCnc 18.0 Above high normal 12/11/2023 7 - 17 [facility] Calcium SerPl-mCnc 9.3 mg/dL Normal 12/11/2023 8.7 - 10.5 [facility] GFR/BSA.pred SerPlBld [id number] >90.0 Normal 12/11/2023 59 - [facility]CT Albumin/Glob SerPl 0.9 Ratio Below low normal 12/11/2023 1 - 3 [facility] CO2 SerPl-sCnc 18.0 mmol/L Below low normal 12/11/2023 22 - 33 [facility]CT Bilirub SerPl-mCnc 0.5 mg/dL Normal 12/11/2023 0.2 - 1 [facility] Globulin Ser Calc-mCnc 4.0 g/dL Above high normal 12/11/2023 1.5 - 3.9 [facility]CT Albumin SerPl-mCnc 3.4 g/dL Normal 12/11/2023 3.4 - 4.8 [facility] BUN/Creat SerPl 12.0 Ratio Normal 12/11/2023 10 - 25 [facility] Magnesium SerPl-mCnc 1.6 mg/dL Normal 12/11/2023 1.6 - 2.7 [facility] CRP SerPl-mCnc 2.6 mg/dL Above high normal 12/11/2023 0 - 0. 49 [facility] Vancomycin SerPl-mCnc 25.0 mg/L Normal 12/11/2023 [facility] Time of last dose Information not given Normal 12/11/2023 [facility] ESR Bld Qn 57.0 MM/HR Above high normal 12/11/2023 - 20 [facility] Eosinophil/leuk NFr Bld Auto 1.4 % Normal 12/11/2023 [facility] Platelet num Bld Auto 299.0 Thou/uL Normal 12/11/2023 150 - 450 [facility] RBC num Bld Auto 3.35 Mil/uL Below low normal 12/11/2023 4.5 - 6.2 [facility]CT Hgb Bld-mCnc 10.8 g/dL Below low normal 12/11/2023 13 - 17.7 [facility]CT PMV Bld Auto 9.9 fL Normal 12/11/2023 7.5 - 12.5 [facility] Monocytes num Bld Auto 1.22 Thou/uL Normal 12/11/2023 0.2 - 1.5 [facility] MCV RBC Auto 96.0 fL Normal 12/11/2023 80 - 100 [facility] Basophils/leuk NFr Bld Auto 0.6 % Normal 12/11/2023 [facility] Eosinophil num Bld Auto 0.14 Thou/uL Normal 12/11/2023 0 - 0.7 [facility]CT RDW RBC Auto-Rto 14.3 % Normal 12/11/2023 11.5 - 14.5 [facility]CT MCH RBC Qn Auto 32.2 pg Above high normal 12/11/2023 27 - 31 [facility] Neutrophils/leuk NFr Bld Auto 60.1 % Normal 12/11/2023 [facility] Monocytes/leuk NFr Bld Auto 12.2 % Normal 12/11/2023 H[facility]CT Lymphocytes num Bld Auto 2.53 Thou/uL Normal 12/11/2023 1.5 - 4.5 HHCCT WBC num Bld Auto 10.0 Thou/uL Normal 12/11/2023 4 - 11 HHCCT MCHC RBC Auto-mCnc 33.5 g/dL Normal 12/11/2023 30 - 36 HHCCT Hct VFr Bld Auto 32.2 % Below low normal 12/11/2023 39 - 54 H[facility]CT Lymphocytes/leuk NFr Bld Auto 25.2 % Normal 12/11/2023 [facility]CT Neutrophils num Bld Auto 6.03 Thou/uL Normal 12/11/2023 2 - 7.5 HHCCT Basophils num Bld Auto 0.06 Thou/uL Normal 12/11/2023 0 - 0.2 HHCCT Imm Granulocytes/leuk NFr Bld Auto 0.5 % Normal 12/11/2023 [facility]CT Imm Granulocytes num Bld Auto 0.05 Thou/uL Normal 12/11/2023 0 - 0.1 HHCCT Vancomycin SerPl-mCnc 27.0 mg/L Normal 12/09/2023 HHCCT Time of last dose Information not given Normal 12/09/2023 HHCCT Potassium SerPl-sCnc 3.4 mmol/L Normal 12/09/2023 3.4 - 5.3 HHCCT BUN/Creat SerPl 12.0 Ratio Normal 12/09/2023 10 - 25 HH CCT Anion Gap Bld-sCnc 8.0 Normal 12/09/2023 7 - 17 HHCCT Creat SerPl-mCnc 0.6 mg/dL Normal 12/09/2023 0.5 - 1.3 HH CCT Calcium SerPl-mCnc 8.5 mg/dL Below low normal 12/09/2023 8.7 - 10.5 HHCCT CO2 SerPl-sCnc 26.0 mmol/L Normal 12/09/2023 22 - 33 HH CCT GFR/BSA.pred SerPlBld [id number] >90.0 Normal 12/09/2023 59 - HHCCT Sodium SerPl-sCnc 133.0 mmol/L Below low normal 12/09/2023 1 36 - 145 HHCCT Glucose SerPl-mCnc 101.0 mg/dL Above high normal 12/09/2023 65 - 99 HHCCT BUN SerPl-mCnc 7.0 mg/dL Below low normal 12/09/2023 8 - 21 HHCCT Chloride SerPl-sCnc 99.0 mmol/L Normal 12/09/2023 98 - 10 7 HHCCT ESR Bld Qn 47.0 MM/HR Above high normal 12/08/2023 - 20 HHCCT CRP SerPl-mCnc 4.6 mg/dL Above high normal 12/08/2023 0 - 0. 49 HHCCT Vancomycin SerPl-mCnc 12.0 mg/L Normal 12/07/2023 HHCCT Time of last dose Information not given Normal 12/07/2023 H[facility]CT 25(OH)D3 SerPl-mCnc 28.0 ng/mL Below low normal 12/07/2023 3 0 - 100 HHCCT Folate SerPl-mCnc 11.8 ng/mL Normal 12/07/2023 7.2 - HHCCT Magnesium SerPl-mCnc 1.6 mg/dL Normal 12/07/2023 1.6 - 2.7 HHCCT Vit B12 SerPl-mCnc 329.0 pg/mL Normal 12/07/2023 243 - 89 4 HHCCT Albumin SerPl-mCnc 2.8 g/dL Below low normal 12/07/2023 3.4 - 4.8 HHCCT ALP SerPl-cCnc 92.0 U/L Normal 12/07/2023 45 - 128 HHCC T Potassium SerPl-sCnc 3.3 mmol/L Below low normal 12/07/2023 3.4 - 5.3 HHCCT Calcium SerPl-mCnc 8.4 mg/dL Below low normal 12/07/2023 8.7 - 10.5 HHCCT Creat SerPl-mCnc 0.5 mg/dL Normal 12/07/2023 0.5 - 1.3 HH CCT Bilirub SerPl-mCnc 0.4 mg/dL Normal 12/07/2023 0.2 - 1 HHCCT Albumin/Glob SerPl 0.8 Ratio Below low normal 12/07/2023 1 - 3 HHCCT Globulin Ser Calc-mCnc 3.5 g/dL Normal 12/07/2023 1.5 - 3.9 HHCCT CO2 SerPl-sCnc 26.0 mmol/L Normal 12/07/2023 22 - 33 HH CCT AST SerPl-cCnc 34.0 U/L Normal 12/07/2023 10 - 55 HHCC T GFR/BSA.pred SerPlBld RAZ-LFR-NpOHis >90.0 Normal 12/07/2023 59 - HHCCT Chloride SerPl-sCnc 95.0 mmol/L Below low normal 12/07/2023 98 - 107 HHCCT ALT SerPl-cCnc 29.0 U/L Normal 12/07/2023 10 - 55 [facility] T Glucose SerPl-mCnc 94.0 mg/dL Normal 12/07/2023 65 - 99 H[facility]CT BUN/Creat SerPl 18.0 Ratio Normal 12/07/2023 10 - 25 HH CCT Sodium SerPl-sCnc 130.0 mmol/L Below low normal 12/07/2023 1 36 - 145 HHCCT Anion Gap Bld-sCnc 9.0 Normal 12/07/2023 7 - 17 HHCCT BUN SerPl-mCnc 9.0 mg/dL Normal 12/07/2023 8 - 21 [facility] T Prot SerPl-mCnc 6.3 g/dL Normal 12/07/2023 6.3 - 8.[address] Lymphocytes num Bld Auto 1.22 Thou/uL Below low normal 12/07/2023 1.5 - 4.5 HHCCT PMV Bld Auto 10.0 fL Normal 12/07/2023 7.5 - 12.5 HHCCT Hgb Bld-mCnc 9.2 g/dL Below low normal 12/07/2023 13 - 17.7 HHCCT MCHC RBC Auto-mCnc 33.3 g/dL Normal 12/07/2023 30 - 36 HHCCT Lymphocytes/leuk NFr Bld Auto 17.6 % Normal 12/07/2023 HHCCT Eosinophil num Bld Auto 0.14 Thou/uL Normal 12/07/2023 0 - 0.7 HHCCT Monocytes/leuk NFr Bld Auto 13.4 % Normal 12/07/2023 HHCCT MCH RBC Qn Auto 31.9 pg Above high normal 12/07/2023 27 - 31 HHCCT Basophils num Bld Auto 0.04 Thou/uL Normal 12/07/2023 0 - 0.2 HHCCT Imm Granulocytes num Bld Auto 0.05 Thou/uL Normal 12/07/2023 0 - 0.1 HHCCT Hct VFr Bld Auto 27.6 % Below low normal 12/07/2023 39 - 54 HHCCT Monocytes num Bld Auto 0.93 Thou/uL Normal 12/07/2023 0.2 - 1.5 HHCCT Neutrophils/leuk NFr Bld Auto 65.7 % Normal 12/07/2023 HHCCT RBC num Bld Auto 2.88 Mil/uL Below low normal 12/07/2023 4.5 - 6.2 HHCCT RDW RBC Auto-Rto 14.4 % Normal 12/07/2023 11.5 - 14.5 HHCCT Eosinophil/leuk NFr Bld Auto 2.0 % Normal 12/07/2023 HHCCT Imm Granulocytes/leuk NFr Bld Auto 0.7 % Normal 12/07/2023 HHCCT MCV RBC Auto 96.0 fL Normal 12/07/2023 80 - 100 H[facility]CT Basophils/leuk NFr Bld Auto 0.6 % Normal 12/07/2023 HHCCT Neutrophils num Bld Auto 4.55 Thou/uL Normal 12/07/2023 2 - 7.5 HHCCT WBC num Bld Auto 6.9 Thou/uL Normal 12/07/2023 4 - 11 H[facility]CT Platelet num Bld Auto 196.0 Thou/uL Normal 12/07/2023 150 - 450 H[facility]CT Lymphocytes/leuk NFr Bld Auto 14.3 % Normal 12/05/2023 HHCCT Hct VFr Bld Auto 26.9 % Below low normal 12/05/2023 39 - 54 H[facility]CT Monocytes/leuk NFr Bld Auto 11.6 % Normal 12/05/2023 HHCCT RDW RBC Auto-Rto 14.7 % Above high normal 12/05/2023 11.5 - 14.5 HHCCT Neutrophils num Bld Auto 5.88 Thou/uL Normal 12/05/2023 2 - 7.5 HHCCT WBC num Bld Auto 8.3 Thou/uL Normal 12/05/2023 4 - 11 H[facility]CT Neutrophils/leuk NFr Bld Auto 70.5 % Normal 12/05/2023 HHCCT Eosinophil/leuk NFr Bld Auto 2.4 % Normal 12/05/2023 [facility]CT Platelet num Bld Auto 200.0 Thou/uL Normal 12/05/2023 150 - 450 HHCCT Monocytes num Bld Auto 0.97 Thou/uL Normal 12/05/2023 0.2 - 1.5 HHCCT PMV Bld Auto 10.1 fL Normal 12/05/2023 7.5 - 12.5 HHCCT Basophils num Bld Auto 0.05 Thou/uL Normal 12/05/2023 0 - 0.2 HHCCT Imm Granulocytes num Bld Auto 0.05 Thou/uL Normal 12/05/2023 0 - 0.1 HHCCT Basophils/leuk NFr Bld Auto 0.6 % Normal 12/05/2023 HHCCT Eosinophil num Bld Auto 0.2 Thou/uL Normal 12/05/2023 0 - 0.7 HHCCT Imm Granulocytes/leuk NFr Bld Auto 0.6 % Normal 12/05/2023 HHCCT MCV RBC Auto 94.0 fL Normal 12/05/2023 80 - 100 HHCCT MCHC RBC Auto-mCnc 33.1 g/dL Normal 12/05/2023 30 - 36 HHCCT Lymphocytes num Bld Auto 1.19 Thou/uL Below low normal 12/05/2023 1.5 - 4.5 HHCCT Hgb Bld-mCnc 8.9 g/dL Below low normal 12/05/2023 13 - 17.7 HHCCT RBC num Bld Auto 2.86 Mil/uL Below low normal 12/05/2023 4.5 - 6.2 HHCCT MCH RBC Qn Auto 31.1 pg Above high normal 12/05/2023 27 - 31 HHCCT Vancomycin SerPl-mCnc 16.0 mg/L Normal 12/04/2023 HHCCT Time of last dose Information not given Normal 12/04/2023 HHCCT Creat SerPl-mCnc 0.6 mg/dL Normal 12/04/2023 0.5 - 1.3 HH CCT GFR/BSA.pred SerPlBld SIF-MZJ-GeTAfl >90.0 Normal 12/04/2023 59 - HHCCT Eosinophil/leuk NFr Bld Auto 1.5 % Normal 12/04/2023 HHCCT PMV Bld Auto 10.1 fL Normal 12/04/2023 7.5 - 12.5 HHCCT Neutrophils num Bld Auto 5.8 Thou/uL Normal 12/04/2023 2 - 7.5 HHCCT Platelet num Bld Auto 194.0 Thou/uL Normal 12/04/2023 150 - 450 HHCCT Monocytes num Bld Auto 1.06 Thou/uL Normal 12/04/2023 0.2 - 1.5 HHCCT Hgb Bld-mCnc 8.6 g/dL Below low normal 12/04/2023 13 - 17.7 HHCCT RDW RBC Auto-Rto 14.6 % Above high normal 12/04/2023 11.5 - 14.5 HHCCT RBC num Bld Auto 2.77 Mil/uL Below low normal 12/04/2023 4.5 - 6.2 HHCCT Lymphocytes num Bld Auto 1.16 Thou/uL Below low normal 12/04/2023 1.5 - 4.5 HHCCT Hct VFr Bld Auto 26.5 % Below low normal 12/04/2023 39 - 54 HHCCT Basophils num Bld Auto 0.04 Thou/uL Normal 12/04/2023 0 - 0.2 HHCCT Imm Granulocytes/leuk NFr Bld Auto 0.5 % Normal 12/04/2023 HHCCT MCHC RBC Auto-mCnc 32.5 g/dL Normal 12/04/2023 30 - 36 HHCCT Eosinophil num Bld Auto 0.12 Thou/uL Normal 12/04/2023 0 - 0.7 HHCCT Lymphocytes/leuk NFr Bld Auto 14.1 % Normal 12/04/2023 HHCCT WBC num Bld Auto 8.2 Thou/uL Normal 12/04/2023 4 - 11 HHCCT Imm Granulocytes num Bld Auto 0.04 Thou/uL Normal 12/04/2023 0 - 0.1 HHCCT Neutrophils/leuk NFr Bld Auto 70.5 % Normal 12/04/2023 HHCCT MCH RBC Qn Auto 31.0 pg Normal 12/04/2023 27 - [address] Basophils/leuk NFr Bld Auto 0.5 % Normal 12/04/2023 HHCCT MCV RBC Auto 96.0 fL Normal 12/04/2023 80 - 100 HHCCT Monocytes/leuk NFr Bld Auto 12.9 % Normal 12/04/2023 HHCCT Hct VFr Bld Auto 24.7 % Below low normal 12/04/2023 39 - 54 HHCCT Hgb Bld-mCnc 8.4 g/dL Below low normal 12/04/2023 13 - 17.7 HHCCT MCV RBC Auto 97.0 fL Normal 12/03/2023 80 - 100 HHCCT RBC num Bld Auto 1.85 Mil/uL Below low normal 12/03/2023 4.5 - 6.2 HHCCT Hgb Bld-mCnc 5.9 g/dL Below low normal 12/03/2023 13 - 17.7 HHCCT RDW RBC Auto-Rto 14.2 % Normal 12/03/2023 11.5 - 14.5 HHCCT MCHC RBC Auto-mCnc 32.8 g/dL Normal 12/03/2023 30 - 36 HHCCT WBC num Bld Auto 7.0 Thou/uL Normal 12/03/2023 4 - 11 H[facility]CT Platelet num Bld Auto 139.0 Thou/uL Below low normal 12/03/2023 150 - 450 HHCCT Hct VFr Bld Auto 18.0 % Critically low 12/03/2023 39 - 54 HHCCT PMV Bld Auto 10.2 fL Normal 12/03/2023 7.5 - 12.5 HHCCT MCH RBC Qn Auto 31.9 pg Above high normal 12/03/2023 27 - 31 HHCCT Hgb Bld-mCnc 7.4 g/dL Below low normal 12/02/2023 13 - 17.7 HHCCT MCHC RBC Auto-mCnc 33.5 g/dL Normal 12/02/2023 30 - 36 HHCCT WBC num Bld Auto 12.1 Thou/uL Above high normal 12/02/2023 4 - 11 HHCCT MCV RBC Auto 95.0 fL Normal 12/02/2023 80 - 100 HHCCT PMV Bld Auto 10.2 fL Normal 12/02/2023 7.5 - 12.5 HHCCT MCH RBC Qn Auto 31.9 pg Above high normal 12/02/2023 27 - 31 HHCCT Hct VFr Bld Auto 22.1 % Below low normal 12/02/2023 39 - 54 H[facility]CT Platelet num Bld Auto 207.0 Thou/uL Normal 12/02/2023 150 - 450 HHCCT RDW RBC Auto-Rto 14.2 % Normal 12/02/2023 11.5 - 14.5 HHCCT RBC num Bld Auto 2.32 Mil/uL Below low normal 12/02/2023 4.5 - 6.2 HHCCT Comment Specimen clotted. Test not performed. Abnormal 12/01/2023 - HHCCT Comment Specimen clotted. Test not performed. Abnormal 12/01/2023 - HHCCT POC Glucose 115.0 mg/dL Above high normal 12/01/2023 65 - 99 HHCCT Calcium SerPl-mCnc 8.2 mg/dL Below low normal 12/01/2023 8.7 - 10.5 HHCCT Sodium SerPl-sCnc 136.0 mmol/L Normal 12/01/2023 136 - 14 5 HHCCT BUN SerPl-mCnc 14.0 mg/dL Normal 12/01/2023 8 - [address] CO2 SerPl-sCnc 27.0 mmol/L Normal 12/01/2023 22 - 33 HH CCT BUN/Creat SerPl 23.0 Ratio Normal 12/01/2023 10 - 25 HH CCT Creat SerPl-mCnc 0.6 mg/dL Normal 12/01/2023 0.5 - 1.3 HH CCT Potassium SerPl-sCnc 3.7 mmol/L Normal 12/01/2023 3.4 - 5.3 HHCCT GFR/BSA.pred SerPlBld EXA-[id number]-ZsSTgb >90.0 Normal 12/01/2023 59 - HHCCT Anion Gap Bld-sCnc 7.0 Normal 12/01/2023 7 - 17 HHCCT Glucose SerPl-mCnc 115.0 mg/dL Above high normal 12/01/2023 65 - 99 HHCCT Chloride SerPl-sCnc 102.0 mmol/L Normal 12/01/2023 98 - 1 07 HHCCT RDW RBC Auto-Rto 14.1 % Normal 12/01/2023 11.5 - 14.5 HHCCT Platelet num Bld Auto 129.0 Thou/uL Below low normal 12/01/2023 150 - 450 HHCCT MCHC RBC Auto-mCnc 33.8 g/dL Normal 12/01/2023 30 - 36 HHCCT MCV RBC Auto 96.0 fL Normal 12/01/2023 80 - 100 HHCCT MCH RBC Qn Auto 32.3 pg Above high normal 12/01/2023 27 - 31 HHCCT PMV Bld Auto 10.6 fL Normal 12/01/2023 7.5 - 12.5 HHCCT WBC num Bld Auto 9.7 Thou/uL Normal 12/01/2023 4 - 11 HHCCT RBC num Bld Auto 2.23 Mil/uL Below low normal 12/01/2023 4.5 - 6.2 HHCCT Hct VFr Bld Auto 21.3 % Below low normal 12/01/2023 39 - 54 HHCCT Hgb Bld-mCnc 7.2 g/dL Below low normal 12/01/2023 13 - 17.7 HHCCT ESR Bld Qn 38.0 MM/HR Above high normal 11/30/2023 - 20 HHCCT CRP SerPl-mCnc 13.21 mg/dL Above high normal 11/30/2023 0 - 0.49 HHCCT Creat SerPl-mCnc 0.5 mg/dL Normal 11/30/2023 0.5 - 1.3 HH CCT Anion Gap Bld-sCnc 7.0 Normal 11/30/2023 7 - 17 HHCCT GFR/BSA.pred SerPlBld FAP-RMH-DmOArd >90.0 Normal 11/30/2023 59 - HHCCT Calcium SerPl-mCnc 8.6 mg/dL Below low normal 11/30/2023 8.7 - 10.5 HHCCT Chloride SerPl-sCnc 101.0 mmol/L Normal 11/30/2023 98 - 1 07 HHCCT CO2 SerPl-sCnc 26.0 mmol/L Normal 11/30/2023 22 - 33 HH CCT BUN SerPl-mCnc 14.0 mg/dL Normal 11/30/2023 8 - [address] BUN/Creat SerPl 28.0 Ratio Above high normal 11/30/2023 10 - 25 HHCCT Potassium SerPl-sCnc 3.7 mmol/L Normal 11/30/2023 3.4 - 5.3 HHCCT Sodium SerPl-sCnc 134.0 mmol/L Below low normal 11/30/2023 1 36 - 145 HHCCT Glucose SerPl-mCnc 112.0 mg/dL Above high normal 11/30/2023 65 - 99 HHCCT PMV Bld Auto 10.8 fL Normal 11/30/2023 7.5 - 12.5 HHCCT Hct VFr Bld Auto 22.4 % Below low normal 11/30/2023 39 - 54 HHCCT Platelet num Bld Auto 122.0 Thou/uL Below low normal 11/30/2023 150 - 450 HHCCT RDW RBC Auto-Rto 14.2 % Normal 11/30/2023 11.5 - 14.5 HHCCT WBC num Bld Auto 10.7 Thou/uL Normal 11/30/2023 4 - 11 HHCCT Hgb Bld-mCnc 7.5 g/dL Below low normal 11/30/2023 13 - 17.7 HHCCT RBC num Bld Auto 2.35 Mil/uL Below low normal 11/30/2023 4.5 - 6.2 HHCCT MCV RBC Auto 95.0 fL Normal 11/30/2023 80 - 100 HHCCT MCH RBC Qn Auto 31.9 pg Above high normal 11/30/2023 27 - 31 HHCCT MCHC RBC Auto-mCnc 33.5 g/dL Normal 11/30/2023 30 - 36 HHCCT Normocytes Present Normal 11/30/2023 HHCCT Normochromic Bld Ql Smear Present Normal 11/30/2023 HHCCT Folate SerPl-mCnc 10.9 ng/mL Normal 11/29/2023 7.2 - HHCCT Sodium SerPl-sCnc 134.0 mmol/L Below low normal 11/29/2023 1 36 - 145 HHCCT Magnesium SerPl-mCnc 1.7 mg/dL Normal 11/29/2023 1.6 - 2.7 HHCCT PMV Bld Auto 10.8 fL Normal 11/29/2023 7.5 - 12.5 HHCCT Platelet num Bld Auto 136.0 Thou/uL Below low normal 11/29/2023 150 - 450 HHCCT Imm Granulocytes num Bld Auto 0.1 Thou/uL Normal 11/29/2023 0 - 0.1 HHCCT WBC num Bld Auto 12.8 Thou/uL Above high normal 11/29/2023 4 - 11 HHCCT Basophils/leuk NFr Bld Auto 0.3 % Normal 11/29/2023 HHCCT MCH RBC Qn Auto 32.3 pg Above high normal 11/29/2023 27 - 31 HHCCT Imm Granulocytes/leuk NFr Bld Auto 0.8 % Normal 11/29/2023 HHCCT Neutrophils num Bld Auto 9.83 Thou/uL Above high normal 11/29/2023 2 - 7.5 HHCCT Monocytes num Bld Auto 1.35 Thou/uL Normal 11/29/2023 0.2 - 1.5 HHCCT MCHC RBC Auto-mCnc 33.8 g/dL Normal 11/29/2023 30 - 36 HHCCT RDW RBC Auto-Rto 14.3 % Normal 11/29/2023 11.5 - 14.5 HHCCT Basophils num Bld Auto 0.04 Thou/uL Normal 11/29/2023 0 - 0.2 HHCCT Eosinophil num Bld Auto 0.07 Thou/uL Normal 11/29/2023 0 - 0.7 HHCCT Hgb Bld-mCnc 7.6 g/dL Below low normal 11/29/2023 13 - 17.7 HHCCT RBC num Bld Auto 2.35 Mil/uL Below low normal 11/29/2023 4.5 - 6.2 HHCCT Neutrophils/leuk NFr Bld Auto 76.7 % Normal 11/29/2023 HHCCT Monocytes/leuk NFr Bld Auto 10.5 % Normal 11/29/2023 HHCCT Lymphocytes num Bld Auto 1.44 Thou/uL Below low normal 11/29/2023 1.5 - 4.5 HHCCT Eosinophil/leuk NFr Bld Auto 0.5 % Normal 11/29/2023 HHCCT Hct VFr Bld Auto 22.5 % Below low normal 11/29/2023 39 - 54 HHCCT MCV RBC Auto 96.0 fL Normal 11/29/2023 80 - 100 HHCCT Lymphocytes/leuk NFr Bld Auto 11.2 % Normal 11/29/2023 HHCCT INR PPP 1.4 Normal 11/29/2023 HHCCT Prothrombin time 15.7 seconds Above high normal 11/29/2023 1 0 - 13.5 HHCCT Anticoagulant OTHER AGENT OR UNKNOWN Normal 11/29/2023 HHCCT Ferritin SerPl-mCnc 944.0 ug/L Above high normal 11/29/2023 30 - 400 HHCCT LDH SerPl L to P-cCnc 296.0 U/L Above high normal 11/29/2023 120 - 260 HHCCT Iron Satn MFr SerPl 11.0 % Below low normal 11/29/2023 20 - 50 HHCCT TIBC SerPl-mCnc 136.0 ug/dL Normal 11/29/2023 100 - 400 H HCCT Iron SerPl-mCnc 15.0 ug/dL Below low normal 11/29/2023 53 - 167 HHCCT UIBC SerPl-mCnc 121.0 ug/dL Normal 11/29/2023 112 - 346 H HCCT Haptoglob SerPl-mCnc 158.0 mg/dL Normal 11/29/2023 30 - 200 HHCCT Vit B12 SerPl-mCnc 231.0 pg/mL Below low normal 11/29/2023 2 43 - 894 HHCCT Immature Reticulocyte Fraction 9.8 % Normal 11/29/2023 2.3 - 15.9 HHCCT Retics num Auto 67.6 Thou/uL Normal 11/29/2023 30 - 100 HHCCT Reticulocyte production index 1.4 % Normal 11/29/2023 1 - 2 HHCCT Hgb Retic Qn Auto 33.4 pg Normal 11/29/2023 28 - 35 H HCCT Retics/100 RBC NFr Auto 3.0 % Above high normal 11/29/2023 0.7 - 2 HHCCT CO2 SerPl-sCnc 27.0 mmol/L Normal 11/29/2023 22 - 33 HH CCT Chloride SerPl-sCnc 102.0 mmol/L Normal 11/29/2023 98 - 1 07 HHCCT Creat SerPl-mCnc 0.6 mg/dL Normal 11/29/2023 0.5 - 1.3 HH CCT BUN/Creat SerPl 22.0 Ratio Normal 11/29/2023 10 - 25 HH CCT Potassium SerPl-sCnc 3.9 mmol/L Normal 11/29/2023 3.4 - 5.3 HHCCT GFR/BSA.pred SerPlBld EQL-ZCQ-ViSYte >90.0 Normal 11/29/2023 59 - HHCCT Sodium SerPl-sCnc 133.0 mmol/L Below low normal 11/29/2023 1 36 - 145 HHCCT Calcium SerPl-mCnc 8.3 mg/dL Below low normal 11/29/2023 8.7 - 10.5 HHCCT Glucose SerPl-mCnc 135.0 mg/dL Above high normal 11/29/2023 65 - 99 HHCCT Anion Gap Bld-sCnc 4.0 Below low normal 11/29/2023 7 - 17 HHCCT BUN SerPl-mCnc 13.0 mg/dL Normal 11/29/2023 8 - [address] Phosphate SerPl-mCnc 2.6 mg/dL Below low normal 11/29/2023 2.7 - 4.5 HHCCT Magnesium SerPl-mCnc 1.8 mg/dL Normal 11/29/2023 1.6 - 2.7 HHCCT WBC num Bld Auto 12.1 Thou/uL Above high normal 11/29/2023 4 - 11 HHCCT MCHC RBC Auto-mCnc 33.9 g/dL Normal 11/29/2023 30 - 36 HHCCT RBC num Bld Auto 2.31 Mil/uL Below low normal 11/29/2023 4.5 - 6.2 HHCCT MCV RBC Auto 94.0 fL Normal 11/29/2023 80 - 100 HHCCT Hct VFr Bld Auto 21.8 % Below low normal 11/29/2023 39 - 54 HHCCT Platelet num Bld Auto 116.0 Thou/uL Below low normal 11/29/2023 150 - 450 HHCCT Hgb Bld-mCnc 7.4 g/dL Below low normal 11/29/2023 13 - 17.7 HHCCT RDW RBC Auto-Rto 14.0 % Normal 11/29/2023 11.5 - 14.5 HHCCT MCH RBC Qn Auto 32.0 pg Above high normal 11/29/2023 27 - 31 HHCCT PMV Bld Auto 10.4 fL Normal 11/29/2023 7.5 - 12.5 HHCCT POC Glucose 128.0 mg/dL Above high normal 11/29/2023 65 - 99 HHCCT POC Glucose 183.0 mg/dL Above high normal 11/28/2023 65 - 99 HHCCT RBC num Bld Auto 2.89 Mil/uL Below low normal 11/28/2023 4.5 - 6.2 HHCCT RDW RBC Auto-Rto 13.9 % Normal 11/28/2023 11.5 - 14.5 HHCCT Hgb Bld-mCnc 9.2 g/dL Below low normal 11/28/2023 13 - 17.7 HHCCT MCV RBC Auto 95.0 fL Normal 11/28/2023 80 - 100 HHCCT Platelet num Bld Auto 190.0 Thou/uL Normal 11/28/2023 150 - 450 HHCCT MCH RBC Qn Auto 31.8 pg Above high normal 11/28/2023 27 - 31 HHCCT Hct VFr Bld Auto 27.3 % Below low normal 11/28/2023 39 - 54 HHCCT WBC num Bld Auto 15.7 Thou/uL Above high normal 11/28/2023 4 - 11 HHCCT MCHC RBC Auto-mCnc 33.7 g/dL Normal 11/28/2023 30 - 36 HHCCT PMV Bld Auto 10.3 fL Normal 11/28/2023 7.5 - 12.5 HHCCT Vancomycin SerPl-mCnc 10.0 mg/L Normal 11/28/2023 HHCCT Time of last dose Information not given Normal 11/28/2023 HHCCT CO2 SerPl-sCnc 24.0 mmol/L Normal 11/28/2023 22 - 33 HH CCT Sodium SerPl-sCnc 137.0 mmol/L Normal 11/28/2023 136 - 14 5 HHCCT GFR/BSA.pred SerPlBld SHE-SGN-PcPVik >90.0 Normal 11/28/2023 59 - HHCCT Glucose SerPl-mCnc 159.0 mg/dL Above high normal 11/28/2023 65 - 99 HHCCT Creat SerPl-mCnc 0.6 mg/dL Normal 11/28/2023 0.5 - 1.3 HH CCT Anion Gap Bld-sCnc 8.0 Normal 11/28/2023 7 - 17 HHCCT BUN/Creat SerPl 18.0 Ratio Normal 11/28/2023 10 - 25 HH CCT BUN SerPl-mCnc 11.0 mg/dL Normal 11/28/2023 8 - [address] Calcium SerPl-mCnc 8.0 mg/dL Below low normal 11/28/2023 8.7 - 10.5 HHCCT Potassium SerPl-sCnc 4.3 mmol/L Normal 11/28/2023 3.4 - 5.3 HHCCT Chloride SerPl-sCnc 105.0 mmol/L Normal 11/28/2023 98 - 1 07 HHCCT Phosphate SerPl-mCnc 3.1 mg/dL Normal 11/28/2023 2.7 - 4.5 HHCCT Magnesium SerPl-mCnc 1.5 mg/dL Below low normal 11/28/2023 1.6 - 2.7 HHCCT Ca-I SerPl-mCnc 1.13 mmol/L Below low normal 11/28/2023 1.17 - 1.33 HHCCT RESULT View Scanned Report Normal 12/12/2023 HHCCT TEST NAME 16S RDNA, 28S RDNA, MTP PCR Normal 12/05/2023 [facility] Normal 12/05/2023 HHCCT RESULT View Scanned Report Normal 12/12/2023 [facility] Normal 12/05/2023 HHCCT TEST NAME 16S RDNA, 28S RNA, MTB PCR Normal 12/05/2023 HHCCT ISTAT Ionized Calcium 1.2 mmol/L Normal 11/28/2023 1.17 - 1.33 HHCCT ISTAT Glucose 119.0 mg/dL Above high normal 11/28/2023 65 - 99 [facility] ISTAT O2 Saturation 100.0 % Above high normal 11/28/2023 9 4 - 97 [facility] ISTAT Hematocrit 29.0 % Below low normal 11/28/2023 39 - 54 [facility] ISTAT Arterial PO2 232.0 mmHg Above high normal 11/28/2023 7 5 - 95 [facility] ISTAT Hemoglobin 9.9 gm/dL Below low normal 11/28/2023 13 - 17.7 [facility]CT Magnesium SerPl-mCnc 1.8 mg/dL Normal 11/27/2023 1.6 - 2.7 [facility] Segmented Neutrophil 84.0 % Normal 11/27/2023 [facility] Neutrophils num Bld Auto 5.1 Thou/uL Normal 11/27/2023 2 - 7.5 H[facility]CT Eosinophil 2.0 % Normal 11/27/2023 H[facility]CT Normocytes Present Normal 11/27/2023 [facility] Lymphocytes/leuk NFr Bld Auto 10.0 % Normal 11/27/2023 [facility] Monocytes/leuk NFr Bld Auto 4.0 % Normal 11/27/2023 [facility]CT Normochromic Bld Ql Smear Present Normal 11/27/2023 [facility] Monocyte, Absolute 0.2 Thou/uL Normal 11/27/2023 0.2 - 1. 5 [facility]CT Lymphocytes num Bld Auto 0.6 Thou/uL Below low normal 11/27/2023 1.5 - 4.5 H[facility]CT Eosinophil num Bld Auto 0.1 Thou/uL Normal 11/27/2023 0 - 0.7 [facility] RBC num Bld Auto 3.45 Mil/uL Below low normal 11/27/2023 4.5 - 6.2 [facility]CT WBC num Bld Auto 6.1 Thou/uL Normal 11/27/2023 4 - 11 [facility] MCV RBC Auto 94.0 fL Normal 11/27/2023 80 - 100 H[facility]CT MCHC RBC Auto-mCnc 33.5 g/dL Normal 11/27/2023 30 - 36 H[facility]CT Hct VFr Bld Auto 32.5 % Below low normal 11/27/2023 39 - 54 [facility]CT Hgb Bld-mCnc 10.9 g/dL Below low normal 11/27/2023 13 - 17.7 HHCCT MCH RBC Qn Auto 31.6 pg Above high normal 11/27/2023 27 - 31 [facility] Platelet num Bld Auto 127.0 Thou/uL Below low normal 11/27/2023 150 - 450 [facility] PMV Bld Auto 10.6 fL Normal 11/27/2023 7.5 - 12.5 [facility] RDW RBC Auto-Rto 13.7 % Normal 11/27/2023 11.5 - 14.5 [facility] Glucose SerPl-mCnc 116.0 mg/dL Above high normal 11/27/2023 65 - 99 [facility] Chloride SerPl-sCnc 102.0 mmol/L Normal 11/27/2023 98 - 1 07 [facility]CT Anion Gap Bld-sCnc 9.0 Normal 11/27/2023 7 - 17 H[facility]CT CO2 SerPl-sCnc 26.0 mmol/L Normal 11/27/2023 22 - 33 HH CCT BUN/Creat SerPl 16.0 Ratio Normal 11/27/2023 10 - 25 HH CCT Creat SerPl-mCnc 0.5 mg/dL Normal 11/27/2023 0.5 - 1.3 HH CCT Calcium SerPl-mCnc 8.9 mg/dL Normal 11/27/2023 8.7 - 10.5 HHCCT Potassium SerPl-sCnc 3.5 mmol/L Normal 11/27/2023 3.4 - 5.3 HHCCT BUN SerPl-mCnc 8.0 mg/dL Normal 11/27/2023 8 - 21 HHCC T Sodium SerPl-sCnc 137.0 mmol/L Normal 11/27/2023 136 - 14 5 H[facility]CT GFR/BSA.pred SerPlBld [id number] >90.0 Normal 11/27/2023 59 - HHCCT Prothrombin time 15.1 seconds Above high normal 11/27/2023 1 0 - 13.5 H[facility]CT INR PPP 1.3 Normal 11/27/2023 H[facility]CT Anticoagulant IV HEPARIN, UNFRACTIONATED, BEING HELD Normal 11/27/2023 H[facility]CT aPTT PPP 31.0 seconds Normal 11/27/2023 25 - 36 [facility]CT Anticoagulant IV HEPARIN, UNFRACTIONATED, BEING HELD Normal 11/27/2023 H[facility]CT LMWH PPP Charter Representative-aCnc <0.04 IU/mL Normal 11/27/2023 H[facility]CT Anticoagulant IV HEPARIN, UNFRACTIONATED, BEING HELD Normal 11/27/2023 [facility]CT LMWH PPP Charter Representative-aCnc 0.15 IU/mL Normal 11/27/2023 H[facility]CT Anticoagulant IV HEPARIN, UNFRACTIONATED Normal 11/26/2023 [facility]CT LMWH PPP Charter Representative-aCnc 0.3 IU/mL Normal 11/26/2023 [facility]CT Anticoagulant IV HEPARIN, UNFRACTIONATED Normal 11/26/2023 H[facility]CT Hgb Bld-mCnc 12.1 g/dL Below low normal 11/26/2023 13 - 17.7 H[facility]CT Lymphocytes num Bld Auto 1.41 Thou/uL Below low normal 11/26/2023 1.5 - 4.5 H[facility]CT RDW RBC Auto-Rto 13.8 % Normal 11/26/2023 11.5 - 14.5 H[facility]CT Eosinophil/leuk NFr Bld Auto 1.7 % Normal 11/26/2023 [facility] Platelet num Bld Auto 126.0 Thou/uL Below low normal 11/26/2023 150 - 450 [facility] Immature Platelet Fraction 4.2 % Normal 11/26/2023 1.2 - 8.6 H[facility]CT Imm Granulocytes/leuk NFr Bld Auto 0.2 % Normal 11/26/2023 HHCCT Hct VFr Bld Auto 36.3 % Below low normal 11/26/2023 39 - 54 [facility]CT MCHC RBC Auto-mCnc 33.3 g/dL Normal 11/26/2023 30 - 36 H[facility]CT MCV RBC Auto 95.0 fL Normal 11/26/2023 80 - 100 [facility] Imm Granulocytes num Bld Auto 0.01 Thou/uL Normal 11/26/2023 0 - 0.1 H[facility]CT PMV Bld Auto 10.7 fL Normal 11/26/2023 7.5 - 12.5 H[facility]CT Neutrophils/leuk NFr Bld Auto 62.1 % Normal 11/26/2023 H[facility]CT Lymphocytes/leuk NFr Bld Auto 21.5 % Normal 11/26/2023 H[facility]CT Basophils num Bld Auto 0.06 Thou/uL Normal 11/26/2023 0 - 0.2 HHCCT Monocytes num Bld Auto 0.89 Thou/uL Normal 11/26/2023 0.2 - 1.5 H[facility]CT Monocytes/leuk NFr Bld Auto 13.6 % Normal 11/26/2023 H[facility]CT RBC num Bld Auto 3.81 Mil/uL Below low normal 11/26/2023 4.5 - 6.2 H[facility]CT Eosinophil num Bld Auto 0.11 Thou/uL Normal 11/26/2023 0 - 0.7 HHCCT WBC num Bld Auto 6.6 Thou/uL Normal 11/26/2023 4 - 11 H[facility]CT Basophils/leuk NFr Bld Auto 0.9 % Normal 11/26/2023 H[facility]CT Neutrophils num Bld Auto 4.07 Thou/uL Normal 11/26/2023 2 - 7.5 HHCCT MCH RBC Qn Auto 31.8 pg Above high normal 11/26/2023 27 - 31 H[facility]CT Magnesium SerPl-mCnc 1.7 mg/dL Normal 11/26/2023 1.6 - 2.7 HHCCT Anion Gap Bld-sCnc 6.0 Below low normal 11/26/2023 7 - 17 H[facility]CT Sodium SerPl-sCnc 136.0 mmol/L Normal 11/26/2023 136 - 14 5 H[facility]CT GFR/BSA.pred SerPlBld [id number] >90.0 Normal 11/26/2023 59 - HHCCT CO2 SerPl-sCnc 28.0 mmol/L Normal 11/26/2023 22 - 33 HH CCT Chloride SerPl-sCnc 102.0 mmol/L Normal 11/26/2023 98 - 1 07 HHCCT Creat SerPl-mCnc 0.6 mg/dL Normal 11/26/2023 0.5 - 1.3 HH CCT Calcium SerPl-mCnc 9.1 mg/dL Normal 11/26/2023 8.7 - 10.5 HHCCT Glucose SerPl-mCnc 119.0 mg/dL Above high normal 11/26/2023 65 - 99 HHCCT BUN/Creat SerPl 17.0 Ratio Normal 11/26/2023 10 - 25 HH CCT BUN SerPl-mCnc 10.0 mg/dL Normal 11/26/2023 8 - [address] Potassium SerPl-sCnc 3.9 mmol/L Normal 11/26/2023 3.4 - 5.3 HHCCT LMWH PPP Charter Representative-aCnc 0.33 IU/mL Normal 11/26/2023 HHCCT Anticoagulant IV HEPARIN, UNFRACTIONATED Normal 11/26/2023 HHCCT LMWH PPP Charter Representative-aCnc <0.04 IU/mL Normal 11/26/2023 HHCCT Anticoagulant IV HEPARIN, UNFRACTIONATED Normal 11/25/2023 HHCCT Magnesium SerPl-mCnc 1.8 mg/dL Normal 11/25/2023 1.6 - 2.7 HHCCT Anion Gap Bld-sCnc 8.0 Normal 11/25/2023 7 - 17 HHCCT Chloride SerPl-sCnc 103.0 mmol/L Normal 11/25/2023 98 - 1 07 HHCCT Calcium SerPl-mCnc 9.3 mg/dL Normal 11/25/2023 8.7 - 10.5 HHCCT Sodium SerPl-sCnc 137.0 mmol/L Normal 11/25/2023 136 - 14 5 HHCCT ALT SerPl-cCnc 25.0 U/L Normal 11/25/2023 10 - 55 HHCC T BUN/Creat SerPl 20.0 Ratio Normal 11/25/2023 10 - 25 HH CCT Potassium SerPl-sCnc 3.8 mmol/L Normal 11/25/2023 3.4 - 5.3 HHCCT ALP SerPl-cCnc 80.0 U/L Normal 11/25/2023 45 - 128 HHCC T Globulin Ser Calc-mCnc 3.9 g/dL Normal 11/25/2023 1.5 - 3.9 HHCCT Bilirub SerPl-mCnc 0.8 mg/dL Normal 11/25/2023 0.2 - 1 HHCCT GFR/BSA.pred SerPlBld [id number] >90.0 Normal 11/25/2023 59 - HHCCT AST SerPl-cCnc 36.0 U/L Normal 11/25/2023 10 - 55 HHCC T Prot SerPl-mCnc 7.1 g/dL Normal 11/25/2023 6.3 - 8.[address] Albumin/Glob SerPl 0.8 Ratio Below low normal 11/25/2023 1 - 3 HHCCT Creat SerPl-mCnc 0.6 mg/dL Normal 11/25/2023 0.5 - 1.3 HH CCT Albumin SerPl-mCnc 3.2 g/dL Below low normal 11/25/2023 3.4 - 4.8 HHCCT BUN SerPl-mCnc 12.0 mg/dL Normal 11/25/2023 8 - [address] Glucose SerPl-mCnc 100.0 mg/dL Above high normal 11/25/2023 65 - 99 HHCCT CO2 SerPl-sCnc 26.0 mmol/L Normal 11/25/2023 22 - 33 HH CCT Vancomycin SerPl-mCnc 21.0 mg/L Normal 11/25/2023 HHCCT Time of last dose Information not given Normal 11/25/2023 HHCCT LMWH PPP Charter Representative-aCnc <0.04 IU/mL Normal 11/25/2023 HHCCT Anticoagulant IV HEPARIN, UNFRACTIONATED Normal 11/25/2023 HHCCT PMV Bld Auto 10.8 fL Normal 11/25/2023 7.5 - 12.5 HHCCT Hct VFr Bld Auto 35.7 % Below low normal 11/25/2023 39 - 54 HHCCT Basophils num Bld Auto 0.05 Thou/uL Normal 11/25/2023 0 - 0.2 HHCCT Monocytes num Bld Auto 0.84 Thou/uL Normal 11/25/2023 0.2 - 1.5 HHCCT Neutrophils/leuk NFr Bld Auto 65.3 % Normal 11/25/2023 HHCCT Eosinophil/leuk NFr Bld Auto 2.1 % Normal 11/25/2023 HHCCT Monocytes/leuk NFr Bld Auto 13.7 % Normal 11/25/2023 HHCCT RBC num Bld Auto 3.73 Mil/uL Below low normal 11/25/2023 4.5 - 6.2 HHCCT Imm Granulocytes/leuk NFr Bld Auto 0.2 % Normal 11/25/2023 HHCCT MCH RBC Qn Auto 32.2 pg Above high normal 11/25/2023 27 - 31 HHCCT Platelet num Bld Auto 145.0 Thou/uL Below low normal 11/25/2023 150 - 450 HHCCT Neutrophils num Bld Auto 4.02 Thou/uL Normal 11/25/2023 2 - 7.5 HHCCT WBC num Bld Auto 6.2 Thou/uL Normal 11/25/2023 4 - 11 HHCCT Basophils/leuk NFr Bld Auto 0.8 % Normal 11/25/2023 HHCCT Imm Granulocytes num Bld Auto 0.01 Thou/uL Normal 11/25/2023 0 - 0.1 HHCCT Eosinophil num Bld Auto 0.13 Thou/uL Normal 11/25/2023 0 - 0.7 HHCCT MCV RBC Auto 96.0 fL Normal 11/25/2023 80 - 100 HHCCT RDW RBC Auto-Rto 13.7 % Normal 11/25/2023 11.5 - 14.5 HHCCT Lymphocytes/leuk NFr Bld Auto 17.9 % Normal 11/25/2023 HHCCT MCHC RBC Auto-mCnc 33.6 g/dL Normal 11/25/2023 30 - 36 HHCCT Lymphocytes num Bld Auto 1.1 Thou/uL Below low normal 11/25/2023 1.5 - 4.5 HHCCT Hgb Bld-mCnc 12.0 g/dL Below low normal 11/25/2023 13 - 17.7 HHCCT LMWH PPP Charter Representative-aCnc 0.34 IU/mL Normal 11/24/2023 HHCCT Anticoagulant IV HEPARIN, UNFRACTIONATED Normal 11/24/2023 HHCCT Calcium SerPl-mCnc 9.1 mg/dL Normal 11/24/2023 8.7 - 10.5 HHCCT Creat SerPl-mCnc 0.5 mg/dL Normal 11/24/2023 0.5 - 1.3 HH CCT CO2 SerPl-sCnc 24.0 mmol/L Normal 11/24/2023 22 - 33 HH CCT Glucose SerPl-mCnc 112.0 mg/dL Above high normal 11/24/2023 65 - 99 HHCCT BUN/Creat SerPl 22.0 Ratio Normal 11/24/2023 10 - 25 HH CCT Sodium SerPl-sCnc 136.0 mmol/L Normal 11/24/2023 136 - 14 5 HHCCT BUN SerPl-mCnc 11.0 mg/dL Normal 11/24/2023 8 - [address] Chloride SerPl-sCnc 102.0 mmol/L Normal 11/24/2023 98 - 1 07 HHCCT Anion Gap Bld-sCnc 10.0 Normal 11/24/2023 7 - 17 HHCCT GFR/BSA.pred SerPlBld [id number] >90.0 Normal 11/24/2023 59 - HHCCT Potassium SerPl-sCnc 4.1 mmol/L Normal 11/24/2023 3.4 - 5.3 HHCCT Magnesium SerPl-mCnc 1.8 mg/dL Normal 11/24/2023 1.6 - 2.7 HHCCT LMWH PPP Charter Representative-aCnc Blood/anticoagulant ratio of specimen is unsatisfactory for testing, please repeat. Normal 11/24/2023 HHCCT Anticoagulant IV HEPARIN, UNFRACTIONATED Normal 11/24/2023 HHCCT LMWH PPP Charter Representative-aCnc 0.29 IU/mL Normal 11/24/2023 HHCCT Anticoagulant IV HEPARIN, UNFRACTIONATED Normal 11/23/2023 HHCCT LMWH PPP Charter Representative-aCnc 0.28 IU/mL Normal 11/23/2023 HHCCT Anticoagulant IV HEPARIN, UNFRACTIONATED Normal 11/23/2023 HHCCT Magnesium SerPl-mCnc 1.7 mg/dL Normal 11/23/2023 1.6 - 2.7 HHCCT LMWH PPP Charter Representative-aCnc 0.23 IU/mL Normal 11/23/2023 HHCCT Anticoagulant IV HEPARIN, UNFRACTIONATED Normal 11/23/2023 HHCCT BUN/Creat SerPl 20.0 Ratio Normal 11/23/2023 10 - 25 HH CCT Chloride SerPl-sCnc 96.0 mmol/L Below low normal 11/23/2023 98 - 107 HHCCT ALP SerPl-cCnc 83.0 U/L Normal 11/23/2023 45 - 128 HHCC T Sodium SerPl-sCnc 132.0 mmol/L Below low normal 11/23/2023 1 36 - 145 HHCCT Potassium SerPl-sCnc 2.8 mmol/L Below low normal 11/23/2023 3.4 - 5.3 HHCCT Albumin/Glob SerPl 0.9 Ratio Below low normal 11/23/2023 1 - 3 HHCCT GFR/BSA.pred SerPlBld [id number] >90.0 Normal 11/23/2023 59 - HHCCT Glucose SerPl-mCnc 115.0 mg/dL Above high normal 11/23/2023 65 - 99 HHCCT Calcium SerPl-mCnc 9.3 mg/dL Normal 11/23/2023 8.7 - 10.5 HHCCT Globulin Ser Calc-mCnc 3.8 g/dL Normal 11/23/2023 1.5 - 3.9 HHCCT AST SerPl-cCnc 38.0 U/L Normal 11/23/2023 10 - 55 HHCC T Albumin SerPl-mCnc 3.3 g/dL Below low normal 11/23/2023 3.4 - 4.8 HHCCT ALT SerPl-cCnc 24.0 U/L Normal 11/23/2023 10 - 55 HH[facility] T BUN SerPl-mCnc 12.0 mg/dL Normal 11/23/2023 8 - [address] Anion Gap Bld-sCnc 10.0 Normal 11/23/2023 7 - 17 HHCCT Creat SerPl-mCnc 0.6 mg/dL Normal 11/23/2023 0.5 - 1.3 HH CCT CO2 SerPl-sCnc 26.0 mmol/L Normal 11/23/2023 22 - 33 HH CCT Prot SerPl-mCnc 7.1 g/dL Normal 11/23/2023 6.3 - 8.[address] Bilirub SerPl-mCnc 1.1 mg/dL Above high normal 11/23/2023 0. 2 - 1 HHCCT Hct VFr Bld Auto 35.2 % Below low normal 11/23/2023 39 - 54 HHCCT Basophils/leuk NFr Bld Auto 0.5 % Normal 11/23/2023 HHCCT Neutrophils num Bld Auto 3.64 Thou/uL Normal 11/23/2023 2 - 7.5 HHCCT Basophils num Bld Auto 0.03 Thou/uL Normal 11/23/2023 0 - 0.2 HHCCT Lymphocytes/leuk NFr Bld Auto 22.0 % Normal 11/23/2023 HHCCT Neutrophils/leuk NFr Bld Auto 63.3 % Normal 11/23/2023 HHCCT Hgb Bld-mCnc 12.5 g/dL Below low normal 11/23/2023 13 - 17.7 HHCCT PMV Bld Auto 10.5 fL Normal 11/23/2023 7.5 - 12.5 HHCCT MCV RBC Auto 91.0 fL Normal 11/23/2023 80 - 100 HHCCT Imm Granulocytes/leuk NFr Bld Auto 0.3 % Normal 11/23/2023 HHCCT RBC num Bld Auto 3.88 Mil/uL Below low normal 11/23/2023 4.5 - 6.2 HHCCT Monocytes/leuk NFr Bld Auto 12.5 % Normal 11/23/2023 HHCCT Platelet num Bld Auto 142.0 Thou/uL Below low normal 11/23/2023 150 - 450 HHCCT Eosinophil num Bld Auto 0.08 Thou/uL Normal 11/23/2023 0 - 0.7 HHCCT MCHC RBC Auto-mCnc 35.5 g/dL Normal 11/23/2023 30 - 36 HHCCT Eosinophil/leuk NFr Bld Auto 1.4 % Normal 11/23/2023 HHCCT Monocytes num Bld Auto 0.72 Thou/uL Normal 11/23/2023 0.2 - 1.5 HHCCT Imm Granulocytes num Bld Auto 0.02 Thou/uL Normal 11/23/2023 0 - 0.1 HHCCT Lymphocytes num Bld Auto 1.27 Thou/uL Below low normal 11/23/2023 1.5 - 4.5 HHCCT MCH RBC Qn Auto 32.2 pg Above high normal 11/23/2023 27 - 31 HHCCT WBC num Bld Auto 5.8 Thou/uL Normal 11/23/2023 4 - 11 HHCCT RDW RBC Auto-Rto 13.4 % Normal 11/23/2023 11.5 - 14.5 HHCCT Monocytes/leuk NFr Bld Auto 14.0 % Normal 11/22/2023 HHCCT RDW RBC Auto-Rto 13.5 % Normal 11/22/2023 11.5 - 14.5 HHCCT Imm Granulocytes num Bld Auto 0.02 Thou/uL Normal 11/22/2023 0 - 0.1 HHCCT Hct VFr Bld Auto 36.3 % Below low normal 11/22/2023 39 - 54 HHCCT Neutrophils num Bld Auto 5.26 Thou/uL Normal 11/22/2023 2 - 7.5 HHCCT Hgb Bld-mCnc 12.8 g/dL Below low normal 11/22/2023 13 - 17.7 HHCCT Immature Platelet Fraction 5.5 % Normal 11/22/2023 1.2 - 8.6 HHCCT RBC num Bld Auto 3.99 Mil/uL Below low normal 11/22/2023 4.5 - 6.2 HHCCT Basophils num Bld Auto 0.04 Thou/uL Normal 11/22/2023 0 - 0.2 HHCCT Basophils/leuk NFr Bld Auto 0.5 % Normal 11/22/2023 HHCCT Imm Granulocytes/leuk NFr Bld Auto 0.3 % Normal 11/22/2023 HHCCT Neutrophils/leuk NFr Bld Auto 69.0 % Normal 11/22/2023 HHCCT WBC num Bld Auto 7.6 Thou/uL Normal 11/22/2023 4 - 11 HHCCT Platelet num Bld Auto 129.0 Thou/uL Below low normal 11/22/2023 150 - 450 HHCCT MCHC RBC Auto-mCnc 35.3 g/dL Normal 11/22/2023 30 - 36 HHCCT MCV RBC Auto 91.0 fL Normal 11/22/2023 80 - 100 HHCCT Eosinophil num Bld Auto 0.06 Thou/uL Normal 11/22/2023 0 - 0.7 HHCCT PMV Bld Auto 10.8 fL Normal 11/22/2023 7.5 - 12.5 HHCCT Lymphocytes num Bld Auto 1.17 Thou/uL Below low normal 11/22/2023 1.5 - 4.5 HHCCT Lymphocytes/leuk NFr Bld Auto 15.4 % Normal 11/22/2023 HHCCT Monocytes num Bld Auto 1.07 Thou/uL Normal 11/22/2023 0.2 - 1.5 HHCCT MCH RBC Qn Auto 32.1 pg Above high normal 11/22/2023 27 - 31 HHCCT Eosinophil/leuk NFr Bld Auto 0.8 % Normal 11/22/2023 HHCCT BUN SerPl-mCnc 13.0 mg/dL Normal 11/22/2023 8 - [address] AST SerPl-cCnc 40.0 U/L Normal 11/22/2023 10 - 55 HHCC T BUN/Creat SerPl 26.0 Ratio Above high normal 11/22/2023 10 - 25 HHCCT ALT SerPl-cCnc 25.0 U/L Normal 11/22/2023 10 - 55 HHCC T Albumin/Glob SerPl 0.8 Ratio Below low normal 11/22/2023 1 - 3 HHCCT Bilirub SerPl-mCnc 1.2 mg/dL Above high normal 11/22/2023 0. 2 - 1 HHCCT CO2 SerPl-sCnc 24.0 mmol/L Normal 11/22/2023 22 - 33 HH CCT Creat SerPl-mCnc 0.5 mg/dL Normal 11/22/2023 0.5 - 1.3 HH CCT GFR/BSA.pred SerPlBld [id number] >90.0 Normal 11/22/2023 59 - HHCCT ALP SerPl-cCnc 83.0 U/L Normal 11/22/2023 45 - 128 HHCC T Anion Gap Bld-sCnc 11.0 Normal 11/22/2023 7 - 17 HHCCT Potassium SerPl-sCnc 3.5 mmol/L Normal 11/22/2023 3.4 - 5.3 HHCCT Glucose SerPl-mCnc 122.0 mg/dL Above high normal 11/22/2023 65 - 99 HHCCT Albumin SerPl-mCnc 3.2 g/dL Below low normal 11/22/2023 3.4 - 4.8 HHCCT Calcium SerPl-mCnc 9.0 mg/dL Normal 11/22/2023 8.7 - 10.5 HHCCT Sodium SerPl-sCnc 134.0 mmol/L Below low normal 11/22/2023 1 36 - 145 HHCCT Prot SerPl-mCnc 7.0 g/dL Normal 11/22/2023 6.3 - 8.[address] Globulin Ser Calc-mCnc 3.8 g/dL Normal 11/22/2023 1.5 - 3.9 HHCCT Chloride SerPl-sCnc 99.0 mmol/L Normal 11/22/2023 98 - 10 7 HHCCT Magnesium SerPl-mCnc 1.7 mg/dL Normal 11/22/2023 1.6 - 2.7 HHCCT LMWH PPP Charter Representative-aCnc 0.33 IU/mL Normal 11/22/2023 HHCCT Anticoagulant IV HEPARIN, UNFRACTIONATED Normal 11/22/2023 HHCCT LMWH PPP Charter Representative-aCnc 0.35 IU/mL Normal 11/21/2023 HHCCT Anticoagulant IV HEPARIN, UNFRACTIONATED Normal 11/21/2023 HHCCT INR PPP 1.6 Normal 11/21/2023 HHCCT Prothrombin time 18.2 seconds Above high normal 11/21/2023 1 0 - 13.5 HHCCT Anticoagulant IV HEPARIN, UNFRACTIONATED Normal 11/21/2023 HHCCT aPTT PPP 31.0 seconds Normal 11/21/2023 25 - 36 HHCCT Anticoagulant IV HEPARIN, UNFRACTIONATED Normal 11/21/2023 HHCCT WBC num Bld Auto 9.2 Thou/uL Normal 11/21/2023 4 - 11 HHCCT Hgb Bld-mCnc 11.6 g/dL Below low normal 11/21/2023 13 - 17.7 HHCCT Eosinophil num Bld Auto 0.07 Thou/uL Normal 11/21/2023 0 - 0.7 HHCCT MCV RBC Auto 91.0 fL Normal 11/21/2023 80 - 100 HHCCT Imm Granulocytes/leuk NFr Bld Auto 0.4 % Normal 11/21/2023 HHCCT Basophils num Bld Auto 0.04 Thou/uL Normal 11/21/2023 0 - 0.2 HHCCT Lymphocytes num Bld Auto 0.98 Thou/uL Below low normal 11/21/2023 1.5 - 4.5 HHCCT Neutrophils num Bld Auto 7.13 Thou/uL Normal 11/21/2023 2 - 7.5 HHCCT Hct VFr Bld Auto 33.3 % Below low normal 11/21/2023 39 - 54 HHCCT RDW RBC Auto-Rto 13.4 % Normal 11/21/2023 11.5 - 14.5 HHCCT Eosinophil/leuk NFr Bld Auto 0.8 % Normal 11/21/2023 HHCCT RBC num Bld Auto 3.66 Mil/uL Below low normal 11/21/2023 4.5 - 6.2 HHCCT PMV Bld Auto 10.6 fL Normal 11/21/2023 7.5 - 12.5 HHCCT Lymphocytes/leuk NFr Bld Auto 10.6 % Normal 11/21/2023 HHCCT Monocytes num Bld Auto 0.95 Thou/uL Normal 11/21/2023 0.2 - 1.5 HHCCT Monocytes/leuk NFr Bld Auto 10.3 % Normal 11/21/2023 HHCCT Neutrophils/leuk NFr Bld Auto 77.5 % Normal 11/21/2023 HHCCT MCHC RBC Auto-mCnc 34.8 g/dL Normal 11/21/2023 30 - 36 HHCCT Platelet num Bld Auto 125.0 Thou/uL Below low normal 11/21/2023 150 - 450 HHCCT MCH RBC Qn Auto 31.7 pg Above high normal 11/21/2023 27 - 31 HHCCT Basophils/leuk NFr Bld Auto 0.4 % Normal 11/21/2023 HHCCT Imm Granulocytes num Bld Auto 0.04 Thou/uL Normal 11/21/2023 0 - 0.1 HHCCT MCV RBC Auto 92.0 fL Normal 11/21/2023 80 - 100 HHCCT Basophils/leuk NFr Bld Auto 0.5 % Normal 11/21/2023 HHCCT RBC num Bld Auto 3.79 Mil/uL Below low normal 11/21/2023 4.5 - 6.2 HHCCT Neutrophils num Bld Auto 7.47 Thou/uL Normal 11/21/2023 2 - 7.5 HHCCT Basophils num Bld Auto 0.05 Thou/uL Normal 11/21/2023 0 - 0.2 HHCCT Hct VFr Bld Auto 35.0 % Below low normal 11/21/2023 39 - 54 HHCCT Neutrophils/leuk NFr Bld Auto 76.4 % Normal 11/21/2023 HHCCT RDW RBC Auto-Rto 13.5 % Normal 11/21/2023 11.5 - 14.5 HHCCT Lymphocytes num Bld Auto 1.12 Thou/uL Below low normal 11/21/2023 1.5 - 4.5 HHCCT Hgb Bld-mCnc 12.1 g/dL Below low normal 11/21/2023 13 - 17.7 HHCCT Eosinophil num Bld Auto 0.1 Thou/uL Normal 11/21/2023 0 - 0.7 HHCCT PMV Bld Auto 10.3 fL Normal 11/21/2023 7.5 - 12.5 HHCCT Imm Granulocytes/leuk NFr Bld Auto 0.3 % Normal 11/21/2023 HHCCT Eosinophil/leuk NFr Bld Auto 1.0 % Normal 11/21/2023 HHCCT Immature Platelet Fraction 4.0 % Normal 11/21/2023 1.2 - 8.6 HHCCT Monocytes num Bld Auto 1.02 Thou/uL Normal 11/21/2023 0.2 - 1.5 HHCCT Lymphocytes/leuk NFr Bld Auto 11.4 % Normal 11/21/2023 HHCCT Platelet num Bld Auto 134.0 Thou/uL Below low normal 11/21/2023 150 - 450 HHCCT Monocytes/leuk NFr Bld Auto 10.4 % Normal 11/21/2023 HHCCT MCHC RBC Auto-mCnc 34.6 g/dL Normal 11/21/2023 30 - 36 HHCCT Imm Granulocytes num Bld Auto 0.03 Thou/uL Normal 11/21/2023 0 - 0.1 HHCCT WBC num Bld Auto 9.8 Thou/uL Normal 11/21/2023 4 - 11 HHCCT MCH RBC Qn Auto 31.9 pg Above high normal 11/21/2023 27 - 31 HHCCT Magnesium SerPl-mCnc 1.9 mg/dL Normal 11/21/2023 1.6 - 2.7 HHCCT Prot SerPl-mCnc 7.1 g/dL Normal 11/21/2023 6.3 - 8.[address] AST SerPl-cCnc 54.0 U/L Normal 11/21/2023 10 - 55 HHCC T BUN/Creat SerPl 23.0 Ratio Normal 11/21/2023 10 - 25 HH CCT Albumin/Glob SerPl 0.9 Ratio Below low normal 11/21/2023 1 - 3 HHCCT Calcium SerPl-mCnc 9.4 mg/dL Normal 11/21/2023 8.7 - 10.5 HHCCT ALP SerPl-cCnc 77.0 U/L Normal 11/21/2023 45 - 128 HHCC T Creat SerPl-mCnc 0.7 mg/dL Normal 11/21/2023 0.5 - 1.3 HH CCT Anion Gap Bld-sCnc 9.0 Normal 11/21/2023 7 - 17 HHCCT Sodium SerPl-sCnc 136.0 mmol/L Normal 11/21/2023 136 - 14 5 HHCCT ALT SerPl-cCnc 27.0 U/L Normal 11/21/2023 10 - 55 HHCC T Bilirub SerPl-mCnc 1.5 mg/dL Above high normal 11/21/2023 0. 2 - 1 HHCCT Chloride SerPl-sCnc 100.0 mmol/L Normal 11/21/2023 98 - 1 07 HHCCT Albumin SerPl-mCnc 3.3 g/dL Below low normal 11/21/2023 3.4 - 4.8 HHCCT Potassium SerPl-sCnc 3.3 mmol/L Below low normal 11/21/2023 3.4 - 5.3 HHCCT BUN SerPl-mCnc 16.0 mg/dL Normal 11/21/2023 8 - [address] GFR/BSA.pred SerPlBld [id number] >90.0 Normal 11/21/2023 59 - HHCCT Glucose SerPl-mCnc 134.0 mg/dL Above high normal 11/21/2023 65 - 99 HHCCT CO2 SerPl-sCnc 27.0 mmol/L Normal 11/21/2023 22 - 33 HH CCT Globulin Ser Calc-mCnc 3.8 g/dL Normal 11/21/2023 1.5 - 3.9 HHCCT Potassium SerPl-sCnc 3.2 mmol/L Below low normal 11/21/2023 3.4 - 5.3 HHCCT ESR Bld Qn 49.0 MM/HR Above high normal 11/20/2023 - 20 HHCCT CRP SerPl-mCnc 9.76 mg/dL Above high normal 11/20/2023 0 - 0 .49 HHCCT Prothrombin time 18.6 seconds Above high normal 11/20/2023 1 0 - 13.5 HHCCT INR PPP 1.6 Normal 11/20/2023 HHCCT Anticoagulant NO ANTI COAGULANT MEDS Normal 11/20/2023 HHCCT Vancomycin SerPl-mCnc 22.0 mg/L Normal 11/20/2023 HHCCT Time of last dose Information not given Normal 11/20/2023 HHCCT Magnesium SerPl-mCnc 1.8 mg/dL Normal 11/20/2023 1.6 - 2.7 HHCCT GFR/BSA.pred SerPlBld [id number] >90.0 Normal 11/20/2023 59 - HHCCT Anion Gap Bld-sCnc 11.0 Normal 11/20/2023 7 - 17 HHCCT Chloride SerPl-sCnc 100.0 mmol/L Normal 11/20/2023 98 - 1 07 HHCCT Albumin SerPl-mCnc 3.5 g/dL Normal 11/20/2023 3.4 - 4.8 HHCCT Creat SerPl-mCnc 0.6 mg/dL Normal 11/20/2023 0.5 - 1.3 HH CCT ALP SerPl-cCnc 78.0 U/L Normal 11/20/2023 45 - 128 HHCC T Bilirub SerPl-mCnc 1.6 mg/dL Above high normal 11/20/2023 0. 2 - 1 HHCCT Globulin Ser Calc-mCnc 3.7 g/dL Normal 11/20/2023 1.5 - 3.9 HHCCT AST SerPl-cCnc 63.0 U/L Above high normal 11/20/2023 10 - 5 5 HHCCT Prot SerPl-mCnc 7.2 g/dL Normal 11/20/2023 6.3 - 8.[address] Calcium SerPl-mCnc 9.2 mg/dL Normal 11/20/2023 8.7 - 10.5 HHCCT BUN SerPl-mCnc 14.0 mg/dL Normal 11/20/2023 8 - [address] BUN/Creat SerPl 23.0 Ratio Normal 11/20/2023 10 - 25 HH CCT ALT SerPl-cCnc 25.0 U/L Normal 11/20/2023 10 - 55 HHCC T Potassium SerPl-sCnc 2.9 mmol/L Below low normal 11/20/2023 3.4 - 5.3 HHCCT Sodium SerPl-sCnc 136.0 mmol/L Normal 11/20/2023 136 - 14 5 HHCCT CO2 SerPl-sCnc 25.0 mmol/L Normal 11/20/2023 22 - 33 HH CCT Glucose SerPl-mCnc 132.0 mg/dL Above high normal 11/20/2023 65 - 99 HHCCT Albumin/Glob SerPl 0.9 Ratio Below low normal 11/20/2023 1 - 3 HHCCT History of Medication Use Medication Directions Dispensed Refills Start Date End Date Status cefpodoxime (VANTIN) 200 MG tablet Take 1 tablet (200 mg total) by mouth every 12 (twelve) hours around the clock. 5 01/08/20 25 active apixaban (ELIQUIS) 5 MG tablet Take 1 tablet (5 mg total) by mouth every 12 (twelve) hours around the clock. 5 active dextrose 50 % solution Infuse 25 mL (12.5 g total) into a venous catheter every 15 (fifteen) minutes as needed for low blood sugar (between 50 and 69 mg/dL). 5 active dextrose 50 % solution Infuse 50 mL (25 g total) into a venous catheter every 15 (fifteen) minutes as needed for low blood sugar (less than 50 mg/dL). 5 active diclofenac (VOLTAREN) 1 % gel Apply 2 g topically 3 times daily (every 8 hours) as needed (right wrist pain). Use dosing card to measure dose. Apply to entire affect area. active glucagon (GLUCAGEN) 1 mg Recon Soln injection Inject 1 mg into the shoulder, thigh, or buttocks daily as needed for low blood sugar (for Blood Glucose LESS than 70 mg/dL and NPO and no IV access). 5 active glucose (GLUTOSE 15) 40 % oral gel Take 1 Tube (37.5 g total) by mouth every 15 (fifteen) minutes as needed for low blood sugar (between 50 and 69 mg/dL). 5 active glucose (GLUTOSE 15) 40 % oral gel Take 2 Tubes (75 g total) by mouth every 15 (fifteen) minutes as needed for low blood sugar (less than 50 mg/dL). 5 active lisinopril (PRINIVIL,ZeSTRIL) 10 MG tablet Take 1 tablet (10 mg total) by mouth daily. 5 active memantine (NAMENDA) 5 MG tablet Take 1 tablet (5 mg total) by mouth daily. 5 active metoPROLOL SUCCINATE (TOPROL-XL) 50 MG 24 hr tablet Take 1 tablet (50 mg total) by mouth daily. 5 active modafinil (PROVIGIL) 200 MG tablet Take 1 tablet (200 mg total) by mouth daily. 5 active psyllium (METAMUCIL) 58.12 % Pack packet Take 1 packet by mouth 2 (two) times a day. active tolterodine (DETROL) 2 MG tablet Take 1 tablet (2 mg total) by mouth 2 (two) times a day. 5 active Alcohol Swabs 70 % Pads Use as directed. 5 active Blood Glucose Monitoring Suppl ([employer] Verio Flex System) w/Device Kit 1 Device by Does not apply route 3 (three) times a day with meals. Use as directed. active [employer] Delica Lancets 33G [facility] lancet 1 Lancet by Other (specify) route 3 (three) times a day with meals. Test blood glucose 3 times Daily or as instructed. 5 active [employer] Verio strip 1 each by Other (specify) route 3 (three) times a day with meals. Test blood glucose 3 times Daily active folic acid (FOLVITE) 1 MG tablet Take 1 tablet (1 mg total) by mouth daily. 5 suspended lisinopril (PRINIVIL,ZeSTRIL) 40 MG tablet Take 1 tablet (40 mg total) by mouth daily. 5 suspended multivitamin with minerals Tab tablet Take 1 tablet by mouth daily. 5 suspended spironolactone (ALDACTONE) 50 MG tablet Take 1 tablet (50 mg total) by mouth every morning with breakfast. 5 suspended thiamine mononitrate (VITAMIN B-1) 100 MG tablet Take 2 tablets (200 mg total) by mouth daily. 5 suspended acetaminophen (TYLENOL) 325 MG tablet Take 2 tablets (650 mg total) by mouth 4 times daily (every 6 hours) as needed for mild pain. 5 suspended amLODIPine (NORVASC) 10 MG tablet Take 1 tablet (10 mg total) by mouth nightly. 5 suspended hydrALAZINE (APRESOLINE) 25 MG tablet Take 1 tablet (25 mg total) by mouth every 8 (eight) hours around the clock. 5 suspended insulin lispro (HumaLOG/ADMELOG) 100 units/mL injection Inject 0.01-0.08 mL (1-8 Units total) under the skin 3 (three) times a day with meals. 5 suspended potassium chloride (K-TAB) 20 MEQ CR tablet TAKE 1 TABLET BY MOUTH EVERY DAY WITH FOOD FOR 30 DAYS 4 active DULoxetine (CYMBALTA) 30 MG capsule Take 1 capsule (30 mg total) by mouth daily. 4 01/28/20 25 active Eliquis 5 MG tablet 01/10 4 active oxyCODONE (ROXICODONE) 5 mg/5 mL solution Take 5 mL (5 mg total) by mouth 4 times daily (every 6 hours) as needed for severe pain. Do not start before January 04, 2024. Max Daily Amount: 20 mg 4 01/19/20 24 aborted warfarin (COUMADIN) 1 MG tablet Take 4 tablets (4 mg total) by mouth daily at the same time. Do not start before January 04, 2024. 4 01/19/20 24 aborted pregabalin (LYRICA) 75 MG capsule Take 1 capsule (75 mg total) by mouth daily. 4 01/28/20 25 active amLODIPine (NORVASC) 5 MG tablet Take 1 tablet (5 mg total) by mouth every evening. 4 02/03/20 24 active cholecalciferol (CHOLECALCIFEROL) 25 MCG (1000 UT) tablet Take 1 tablet (1,000 Units total) by mouth daily. 4 01/28/20 25 active hydroCHLOROthiazide (HYDRODIURIL) 12.5 MG tablet Take 1 tablet (12.5 mg total) by mouth daily. 4 01/26/20 24 active polyethylene glycol (miraLAx) 17 g packet Take 1 packet (17 g total) by mouth nightly. 4 01/28/20 25 active lidocaine (LIDODERM) 5 % patch Place 1 patch on the skin daily as needed for mild pain. Apply patch and leave on for 12 hours then remove. Patch may remain on skin for 12 hours per day. 4 06/19/20 24 active magnesium hydroxide (MILK OF MAGNESIA) 400 mg/5 mL suspension Take 30 mL by mouth daily as needed for constipation. 4 06/19/20 24 active docusate sodium (COLACE) 100 MG capsule Take 1 capsule (100 mg total) by mouth 3 times a day. 4 02/03/20 24 active calcium carbonate (TUMS) 500 MG chewable tablet Chew 2 tablets (1,000 mg total) 2 times daily (every 12 hours) as needed for indigestion or heartburn. 4 01/25/20 24 active QUEtiapine (SEROquel) 25 MG tablet Take 0.5 tablets (12.5 mg total) by mouth nightly as needed (anxiety, difficulty sleeping). 4 01/25/20 24 active senna (SENOKOT) 8.6 MG Tab tablet Take 2 tablets by mouth nightly. 4 01/25/20 24 active miconazole (ZEASORB-AF) 2 % powder Apply topically 2 (two) times a day. active triamterene-hydroCHLOROt hiazide (DYAZIDE) 37.5-25 MG per capsule Take 1 capsule by mouth daily. 4 01/07/20 24 suspended atorvastatin (LIPITOR) 20 MG tablet Take 1 tablet (20 mg total) by mouth nightly. 01/28/20 25 active oxyCODONE (ROXICODONE) 5 MG immediate release tablet Take 1 tablet (5 mg total) by mouth 2 (two) times a day as needed for severe pain. Max Daily Amount: 10 mg 4 06/19/20 24 active ferrous sulfate 325 (65 FE) MG EC tablet Take 1 tablet (325 mg total) by mouth daily. Take 2 hours before or 4 hours after acid reducers. 4 01/26/20 24 active metoPROLOL SUCCINATE (TOPROL-XL) 100 MG 24 hr tablet Take 1 tablet (100 mg total) by mouth daily. 4 01/26/20 24 active acetaminophen (TYLENOL) 325 MG tablet Take 3 tablets (975 mg total) by mouth every 8 (eight) hours around the clock. 4 01/25/20 24 active bisacodyl (DULCOLAX) 10 MG suppository Insert 1 suppository (10 mg total) into the rectum daily as needed for constipation. 10 21/11/20 24 active cyanocobalamin (VITAMIN B12) 1000 MCG tablet Take 1 tablet (1,000 mcg total) by mouth daily. 4 01/25/20 24 active prazosin (MINIPRESS) 2 MG capsule Take 1 capsule (2 mg total) by mouth nightly. 4 01/25/20 24 active cefTRIAXone 2 g in sodium chloride-MBP 0.9% 100 mL IVPB Infuse 2 g into a venous catheter every 24 hours. 4 01/06/20 24 suspended hydrALAZINE (APRESOLINE) 20 MG/ML injection Infuse 0.5 mL (10 mg total) into a venous catheter 4 times daily (every 6 hours) as needed for SBP greater than 170 mmHg. 4 01/06/20 24 suspended lactulose (ENULOSE) 10 gm/15 mL solution Take 15 mL (10 g total) by mouth daily. 4 01/06/20 24 suspended senna-docusate (SENNA-S) 8.6-50 MG Take 2 tablets by mouth nightly. 4 01/06/20 24 suspended vancomycin 1,000 mg in sodium chloride 0.9 % 250 mL IVPB-WTD Infuse 1,000 mg into a venous catheter twice daily (every 12 hours). 4 01/06/20 24 suspended Heparin Sodium, Porcine, (heparin, porcine,) 5000 unit/mL injection Inject 1 mL (5,000 Units total) under the skin every 8 (eight) hours around the clock. 4 suspended ondansetron (ZOFRAN) 4 MG/2ML injection Infuse 2 mL (4 mg total) into a venous catheter once as needed for nausea or vomiting. 4 suspended ramipril (ALTACE) 5 MG capsule Take 1 capsule (5 mg total) by mouth daily. active thiamine (VITAMIN B-1) 50 MG tablet Take 1 tablet (50 mg total) by mouth daily. active Allergies Allergen Reaction Severity Comment Documented Date Source Statu s BACITRACIN ITCHING itx 05/08/2024 CCT active HYDROMORPHONE OTHER (SEE COMMENTS) Aggression and confusion per 12/17/2023 CCT active MORPHINE DELIRIUM/CONF USION/PSYCHOS ISDELERIUM/CO NFUSION/PSYCH OSIS Per , makes patient loopy 11/22/2023 [facility] active SULFA ANTIBIOTICS RASH/DERMATIT IS 11/18/2023 [facility] active SULFAMETHOXAZOLE-TR IMETHOPRIM RASH/DERMATIT IS 11/18/2023 [facility] active Problems Problem Status Onset Date Problem Type Date of Resoluti on Source Atrial fibrillation active 2023-12-08 ProblemAct [facility] Neurogenic bowel active 2024-11-23 ProblemAct [facility] Lumbar stenosis without neurogenic claudication active 2023-12-12 ProblemAct [facility] T Neuropathic pain active 2024-12-07 ProblemAct [facility] Normocytic anemia active 2023-11-29 ProblemAct [facility] Abscess in epidural space of lumbar spine active 2023-11-22 ProblemAct [facility] Wound of ankle active 2024-12-[address] Intraparenchymal hemorrhage of brain active 2024-11-22 ProblemAct [facility] Back pain active 2023-11-18 ProblemAct [facility] S/P lumbar fusion active 2023-12-06 ProblemAct [facility] Right wrist pain active 2024-12-26 ProblemAct [facility] Depression active 2024-11-23 ProblemAct [facility] Spinal instability of lumbar region active 2023-11-22 ProblemAct [facility] Aphasia active 2024-11-23 ProblemAct [facility] Type 2 diabetes mellitus active 2024-11-23 ProblemAct [facility] 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 ProblemAct [facility] Vitamin D deficiency active 2023-12-08 ProblemAct [facility] Neurogenic bladder active 2024-11-23 ProblemAct [facility] Hyponatremia active 2023-11-29 ProblemAct [facility] Hypertension active 2023-12-08 ProblemAct [facility] Hypomagnesemia active 2024-11-[address] Fracture dislocation of lumbar spine active 2023-11-22 ProblemAct [facility] Neuropathy active 2024-12-07 ProblemAct [facility] Spastic hemiparesis of right dominant side active 2024-12-07 ProblemAct [facility] Lumbar burst fracture active 2023-11-18 ProblemAct [facility] Fever active 2024-12-27 ProblemAct [facility] Hypokalemia active 2024-11-23 ProblemAct [facility] Osteomyelitis active 2023-11-18 ProblemAct [facility] T Encounters Encounter Type Encounter Reason Primary Diagnosis Location Date Ambulatory Spastic hemiplegia affecting right dominant side Spastic hemiplegia affecting right dominant side [facility] 02/12/2025 Inpatient Nontraumatic intracerebral hemorrhage in hemisphere, subcortical Nontraumatic intracerebral hemorrhage in hemisphere, subcortical [facility] 11/22/2024 Inpatient Nontraumatic intracerebral hemorrhage, unspecified Nontraumatic intracerebral hemorrhage, unspecified [facility] 11/11/2024 Ambulatory Arthrodesis status Arthrodesis status [facility] 06/19/2024 Ambulatory Arthrodesis status Arthrodesis status [facility] 04/10/2024 Ambulatory Spinal stenosis, lumbar region without neurogenic claudication Spinal stenosis, lumbar region without neurogenic claudication [facility] 02/07/2024 Ambulatory Other chronic hematogenous osteomyelitis, unspecified site Other chronic hematogenous osteomyelitis, unspecified site [facility] 02/07/2024 Ambulatory Arthrodesis status Arthrodesis status [facility] 01/19/2024 Inpatient Spinal stenosis, lumbar region without neurogenic claudication Spinal stenosis, lumbar region without neurogenic claudication [facility] 12/06/2023 Inpatient Osteomyelitis, unspecified Osteomyelitis, unspecified [facility] 11/18/2023 Care Team Organization Name Specialty Phone Email Start Date End Da te [facility] 11/12/2024 025 [facility] 01/02/2024 [facility] CONG VELEZ [facility] 12/31/2023 [facility] 11/19/2023 [facility] 11/19/2023 03/13/2025 [facility] 11/18/2023
--- OUTSIDE RECORDS SUMMARY | 2025-06-05 01:30 | XMS_ITS | Data Portability ---
Author Organization [facility], [address] [place] [address] Assessment No assessment recorded. Plan of Treatment Reminders Order Date Submit Date Provider Last Modified By Organization Details Last Modified Time Details Appointments None record ed. Lab None record ed. Referral None record ed. Procedures None record ed. Surgeries None record ed. Imaging None record ed. Medication Orders None record ed. Patient TargetsNo targets recorded. Patient InstructionsNo instructions recorded. Reason for Referral None Reported. Problems Name Problem SNOMED Code Status Onset Date Resolution Date Notes Provider Name and Address Organization Details Recorded Time Hypertensive disorder 23142090 Active 2022 TIFFANI wolf PA - [facility] 10:46:46 Hypercholestero lemia 15484731 Active 2022 TIFFANI wolf PA - [facility] 10:46:55 Problem Notes None recorded. Procedures Surgical History Date Name Laterality Status Provider Name and Address Organization Details Recorded Time 09/15/19 20 cardiac pacemaker procedure completed TIFFANI MATTHEWS PA - [facility] 09/14/2022 10:48:20 09/15/19 13 procedure on back completed TIFFANI MATTHEWS PA - [facility] 09/14/2022 10:47:39 07/17/18 84 procedure on knee completed TIFFANI MATTHEWS PA - [facility] 09/14/2022 10:47:49 07/17/18 72 hernia repair completed TIFFANI MATTHEWS PA - [facility] 09/14/2022 10:48:03 07/17/18 62 Appendectomy completed TIFFANI MATTHEWS PA - [facility] 09/14/2022 10:48:32 Imaging Results None recorded. Procedure Notes None recorded. Medical Equipment None Reported. Allergies No known drug allergies Medications Name Sig Start Date Stop Date Status Note LastModified by Organization Details LastModified Time metformin 500 mg tablet TAKE 1 TABLET BY MOUTH TWICE A DAY WITH A MEAL active Not Available Not Available No t Available metoprolol succinate ER 100 mg tablet,exten ded release 24 hr active Not Available Not Available Not Available thiamine HCl (vitamin B1) 100 mg tablet TAKE 1 TAB ORALLY TWICE DAILY active Not Available Not Available Not Available triamterene 37.5 mg-hydrochlo rothiazide 25 mg capsule active Not Available Not Available Not Available magnesium oxide 400 mg (241.3 mg magnesium) tablet TAKE 1 TABLET BY MOUTH EVERY DAY active Not Available Not Available No t Available triamcinolon e acetonide 0.025 % topical cream APPLY TWICE DAILY FOR UP TO 2 WEEKS NEEDED FOR FLARING active Not Available Not Available No t Available erythromycin 5 mg/gram (0.5 %) eye ointment APPLY 1 APPLICATION (OPHTHALMIC (EYE)) 4 TIMES PER DAY FOR 7 DAYS APPLY TO SKIN AROUND THE EYE active Not Available Not Available No t Available metformin 1,000 mg tablet active Not Available Not Available Not Available triamterene 37.5 mg-hydrochlo rothiazide 25 mg tablet active Not Available Not Available Not Available allopurinol 300 mg tablet active Not Available Not Available Not Available furosemide 20 mg tablet TAKE 1 TAB ORALLY ONCE DAILY IN THE MORNING FOR 3 DAYS active Not Available Not Available N ot Available loteprednol etabonate 0.5 % eye drops,suspen tiffanie PLACE 1 DROP INTO RIGHT EYE 3 TIMES A DAY active Not Available Not Available Not Available prazosin 2 mg capsule active Not Available Not Available N ot Available ursodiol 500 mg tablet TAKE ONE TABLET BY MOUTH TWICE A DAY active Not Available Not Available No t Available Vitals Date Recorded Body height Body mass index (BMI) Body weight Respiratory rate Body temperature Heart rate Oxygen saturation Oxygen saturation in Arterial blood by Pulse oximetry Systolic And Diastolic Provider Name and Address Organization Details Last Updated DateTime 3 185.42 cm 28.8 kg/m2 58283.1 4 g 18 /min 97.5 [degF] 72 /min 96 % 96 % 168/98 mm[Hg] TIFFANI VILLANUEVA - [facility] 3 10:50:11 Social History Question Answer Notes LastModified by [employer] Details LastModified Time Tobacco Smoking Status Never Smoker [facility] 09/14/2022 10:47:09 What Is Your Water Source? City [email or web address] Information not available 09/14/2022 What Is Your Heat Source? Electric Information not available 09/14/2022 Have You Had Direct Contact, Or Contact During Intimacy, With Monkeypox Rash, Scabs, Or Body Fluids From A Person With Monkeypox? No Information not available 09/14/2022 Have You Recently Traveled Abroad? No [email or web address] Information not available 09/14/2022 Are You Currently In School? No [email or web address] Information not available 09/14/2022 Sex: Unknown Functional Status Question Answer Note LastModified by [employer] Details LastModified Time Do you use any illicit or recreational drugs? No [email or web address] Information not available 09/14/2022 Do you or have you ever used any other forms of tobacco or nicotine? No [email or web address] Information not available 09/14/2022 What is your level of alcohol consumption? Occasional [email or web address] Information not available 09/14/2022 Are you currently employed? No Information not available 09/14/2022 Mental Status None recorded. Family History Relationship Description Onset Age of this Age Resolved Age Notes LastModified by Organization Details LastModified Time Father No current problems or disability [email or web address] Not available 09/14 10:46:57 Mother No current problems or disability [email or web address] Not available 09/14 10:46:57 Medical History No medical history recorded. Immunizations Vaccine Type Date Status Note Provider Nam e and Address Organization Details Recorded Time Influenza, adjuvanted, trivalent, PF 9 completed TIFFANI wolf [facility] 09/14/2022 10:46:06 Influenza, adjuvanted, trivalent, PF 8 completed TIFFANI wolf PA - [facility] 09/14/2022 10:46:06 zoster recombinant 0 completed TIFFANI wolf PA - [facility] 09/14/2022 10:46:06 Influenza, high-dose, quadrivalent, PF 2 completed TIFFANI MATTHEWS null, PA - [facility] 09/14/2022 10:46:06 COVID-19, mRNA, LNP-S, PF, 100 mcg/0.5mL dose or 50 mcg/0.25mL dose 1 completed TIFFANI MATTHEWS null, PA - [facility] 09/14/2022 10:46:06 COVID-19, mRNA, LNP-S, PF, 100 mcg/0.5mL dose or 50 mcg/0.25mL dose 1 completed TIFFANI MATTHEWS null, PA - [facility] 09/14/2022 10:46:06 COVID-19, mRNA, LNP-S, PF, 100 mcg/0.5mL dose or 50 mcg/0.25mL dose 1 completed TIFFANI MATTHEWS null, PA - [facility] 09/14/2022 10:46:06 COVID-19, mRNA, LNP-S, bivalent, PF, 30 mcg/0.3 mL dose 2 completed TIFFANI MATTHEWS null, PA - [facility] 09/14/2022 10:46:06 Pneumococcal conjugate PCV 13 7 completed TIFFANI MATTHEWS null, PA - [facility] 09/14/2022 10:46:06 Influenza, high-dose, trivalent, PF 7 completed TIFFANI MATTHEWS null, PA - [facility] 09/14/2022 10:46:06 Influenza, high-dose, trivalent, PF 5 completed TIFFANI MATTHEWS null, PA - [facility] 09/14/2022 10:46:06 Influenza, high-dose, trivalent, PF 6 completed TIFFANI MATTHEWS null, PA - [facility] 09/14/2022 10:46:07 Influenza, split virus, trivalent, preservative 8 completed TIFFANI MATTHEWS null, PA - [facility] 09/14/2022 10:46:07 Past Encounters Encounter ID Performer Location Encounter Start Date Encounter Closed Date Diagnosis/Indication Diagnosis SNOMED-CT Code Diagnosis ICD10 Code Diagnosis IMO Codes Diagnosis Note [id number] [address] [facility] [address] [place] [address] 07/03/2015 08:35:25 07/03/2015 09:22:25 [id number] [address] [facility] [place] [address] 09/16/2018 08:46:02 09/16/2018 09:54:51 [id number] [address] [facility] [address] [address] 09/13/2018 13:36:05 09/13/2018 13:57:44 [id number] [address] [facility] [address] [address] 10/09/2019 08:33:00 10/09/2019 10:11:04 [id number] [address] [address] 05/01/2022 08:39:41 05/01/2022 09:19:30 [id number] [place] [address] [facility] [address] [address] 09/14/2022 10:20:35 09/14/2022 11:07:26 Nodule of skin of hand 840244038 R22.31 Health Concerns Section Related Observation LastModified by Organization Detai ls LastModified Time None Recorded Concern Status LastModified by Organization Details LastModified Time None Recorded Advance Directives Directive None Recorded Payers Insurance Date Sequence Insurance Name Policy Number Policy Gann Covered Member ID Gann Member ID Guarantor Name 09/14/2024 1 [place] Josh Germain [id number] Josh Germain 09/14/2024 2 [facility] [id number] Josh Germain [id number] Josh Germain 09/14/2024 1 [place] [employer] Josh Germain [id number] Josh Germain 09/14/2024 [facility] (MEDICARE DME [facility]) Josh Germain [id number] Josh Germain Notes Date Note Type Note Provider Name and Address Organization Details Recorded Time 09/14/2022 text/html Rash / Skin LesionReported by PatientHPIFor location, patient reportshands. For severity, patient reportsmild. For duration, patient reports1 weeks. For quality, (one week ago he had a small pimple on his right hand by the 5th mcp, now raised, scabbed over, hyperkeratotic). Pablito Lehman MD [facility] [place], [address], [place] - [facility] 09/14/2022 11:09:39
--- OUTSIDE RECORDS SUMMARY | 2025-06-05 01:30 | XMS_ITS | Encounter Summary ---
Author Organization [facility] Address [address] [place] [address] Care Team Providers Care Research Psychologist Name Role Phone Velvet Pittman MD Primary Care Provider [phone] Alexandria Segura PT Unavailable [phone] Encounter Details Date Type Department Care Team (Late st Contact Info) Description 10/14/2024 Scanned Document [facility] LAND ACQUISITION SPECIALIST SCAN Physical Therapy, Scan Social History Tobacco Use Types Packs/Day Years Used Date Smoking Tobacco: Never Smokeless Tobacco: Never Alcohol Use Standard Drinks/Week Comments Yes 0 (1 standard drink = 0.6 oz pur e alcohol) social [facility] Utilities Answer Date Recorded In the past 12 months has [employer], gas, oil, or water [employer] threatened to shut off services in your [...] place to sleep or slept in a fpc (including now)? No 11/19/2023 Sex and Gender [...] documented as of this encounter Care Teams Research Psychologist Relationship Specialty Start Date End Date Velvet Pittman MD [address] [place] [address] PCP - General 01/02/24 Alexandria Segura, PT [address] [address] Solar Site Assessment SpecialistNeedle Punch Machine Operator Medicine and Rehabilitation 11/26/24 documented as of this encounter
--- OUTSIDE RECORDS SUMMARY | 2025-06-05 01:31 | XMS_ITS | Encounter Summary ---
Author Organization [facility] Address [address] [place] [address] Care Team Providers Care Sponsorship Coordinator Name Role Phone Jhonatan Calderon RN Unavailable Velvet Pittman MD Primary Care Provider [phone] Alexandria Segura PT Unavailable [phone] Encounter Details Date Type Department Care Team (Late st Contact Info) Description 01/04/2024 Scanned Document [facility]IENT REHAB [address] [place] [id number] Colin Meeks [address] [place], [place] [id number] Other chronic osteomyelitis, unspecified site (HCC) Social History Tobacco Use Types Packs/Day Years Used Date Smoking Tobacco: Never Assessed [facility] Utilities Answer Date Recorded In the past 12 months has [employer], gas, oil, or water [employer] threatened to shut off services in your [...] money to buy more. Never true 11/19/19 Within the past 12 months, t he [...] place to sleep or slept in a care home (including now)? No 11/19/2023 Sex and Gender [...] unspecified site (HCC) documented in this encounter Additional Health Concerns Infection Onset Date Last Indicated Resolved Time R/O Respiratory Disease 12/03/2024 12/03/202411/15 7:00 PM EDT documented as of this encounter Care Teams Sponsorship Coordinator Relationship Specialty Start Date End Date Velvet Pittman MD [address] [address] PCP - General 01/02/24 Jhonatan Calderon RN [address] [place] [address] [address] [place] [address] Nurse Navigator Surgery, Neurosurgery 11/20/23 4 Alexandria Segura, PT [address] [address] Manager Of LearningGas Plant Worker Medicine and Rehabilitation 11/26/24 documented as of this encounter
--- OUTSIDE RECORDS SUMMARY | 2025-06-05 01:31 | XMS_ITS | Encounter Summary ---
Author Organization [facility] Address [address] [place] [address] Care Team Providers Care Custom Dressmaker Name Role Phone Velvet Pittman MD Primary Care Provider [phone] Alexandria Segura PT Unavailable [phone] Encounter Details Date Type Department Care Team (Late st Contact Info) Description 03/19/2025 Scanned Document [facility] [place] [address] [place] [address] [id number] Social History Tobacco Use Types Packs/Day Years Used Date Smoking Tobacco: Never Smokeless Tobacco: Never Alcohol Use Standard Drinks/Week Comments Yes 0 (1 standard drink = 0.6 oz pur e alcohol) social [facility] Utilities Answer Date Recorded In the past 12 months has [employer], gas, oil, or water company threatened to [...] Answer Date Recorded PHQ-2 Total Score 0 12/30/2024 Hunger Vital Sign Answer Date Recorded Within [...] place to sleep or slept in a residential (including now)? No 11/19/2023 Housing Stability Vital Sign Answer Jimmie e Recorded In the last 12 months, was t here a time when you were not able to pay the mortgage or rent on time? No 11/12/2024 In the past 12 months, how m any times have you moved where you were living? 0 11/12/2024 At any time in the past 12 m [facility], were you homeless or living in a residential (including now)? No 11/12/2024 Sex and Gender [...] on filedocumented in this encounter Care Teams Custom Dressmaker Relationship Specialty Start Date End Date Velvet Pittman MD [address] [address] PCP - General 01/02/24 Alexandria Segura, PT [address] [address] Glue Wheel OperatorTown Justice Medicine and Rehabilitation 11/26/24 documented as of this encounter
--- OUTSIDE RECORDS SUMMARY | 2025-06-05 01:31 | XMS_ITS | Clinical Summary ---
Author Organization [facility] Address [address] [place] [id number] Care Team Providers Care Environmental Air Specialist Name Role Phone Velvet Pittman MD Primary Care Provider [phone] Alexandria Segura PT Unavailable [phone] Allergies Active Allergy Reactions Criticality Noted Date Comments Bacitracin Itching Low 05/08/2024 itx Sulfamethoxazole-Trimeth oprim Rash/Dermatitis Low 11/18/2023 Hydromorphone Other (See Comments) Medium 12/17/2023 Aggression and confusion per Morphine Delirium/Confusion/ Psychosis Low 11/22/2023 Per , makes patient loopy Medications Blood Glucose Monitoring Suppl (OneTo[employer]elligent [employer] Verio Flex System) w/Device KitIndications:Ty pe 2 diabetes mellitus with other specified complication, without long-term current use of insulin (HCC) 1 Device by Does not apply route 3 (three) times a day with meals. Use as directed. 1 kit 5 Active Alcohol Swabs 70 % PadsIndications:T ype 2 diabetes mellitus with other specified complication, without long-term current use of insulin (HCC) Use as directed. 100 Pad 5 Active OneTouch Delica Lancets 33G Misc lancetIndications :Type 2 diabetes mellitus with other specified complication, without long-term current use of insulin (HCC) 1 Lancet by Other (specify) route 3 (three) times a day with meals. Test blood glucose 3 times Daily or as instructed. 100 each 5 Active OneTouch Verio stripIndications: Type 2 diabetes mellitus with other specified complication, without long-term current use of insulin (HCC) 1 each by Other (specify) route 3 (three) times a day with meals. Test blood glucose 3 times Daily 100 each 5 Active acetaminophen (TYLENOL) 325 MG tabletIndications :Intraparenchymal hemorrhage of brain (HCC) Take 2 tablets (650 mg total) by mouth 4 times daily (every 6 hours) as needed for mild pain. Active atorvastatin (LIPITOR) 20 MG tabletIndications :Abscess in epidural space of lumbar spine Take 1 tablet (20 mg total) by mouth nightly. Active DULoxetine (CYMBALTA) 30 MG capsuleIndication s:Lumbar stenosis without neurogenic claudication Take 1 capsule (30 mg total) by mouth daily. Active folic acid (FOLVITE) 1 MG tabletIndications :Intraparenchymal hemorrhage of brain (HCC) Take 1 tablet (1 mg total) by mouth daily. Active insulin lispro (HumaLOG/ADMELOG) 100 units/mL injectionIndicati ons:Intraparenchy mal hemorrhage of brain (HCC) Inject 0.01-0.08 mL (1-8 Units total) under the skin 3 (three) times a day with meals. Active cholecalciferol (CHOLECALCIFEROL) 25 MCG (1000 UT) tabletIndications :Lumbar stenosis without neurogenic claudication Take 1 tablet (1,000 Units total) by mouth daily. Active cyanocobalamin (VITAMIN B12) 1000 MCG tabletIndications :Abscess in epidural space of lumbar spine Take 1 tablet (1,000 mcg total) by mouth daily. Active ferrous sulfate 325 (65 FE) MG EC tabletIndications :Lumbar stenosis without neurogenic claudication Take 1 tablet (325 mg total) by mouth daily. Take 2 hours before or 4 hours after acid reducers. Active metoPROLOL SUCCINATE (TOPROL-XL) 50 MG 24 hr tabletIndications :Lumbar stenosis without neurogenic claudication Take 1 tablet (50 mg total) by mouth daily. Active miconazole (ZEASORB-AF) 2 % powderIndications :Intraparenchymal hemorrhage of brain (HCC) Apply topically 2 (two) times a day. Active multivitamin with minerals Tab tabletIndications :Intraparenchymal hemorrhage of brain (HCC) Take 1 tablet by mouth daily. Active pregabalin (LYRICA) 75 MG capsuleIndication s:Spastic hemiparesis of right dominant side (HCC) Take 1 capsule (75 mg total) by mouth daily. Active thiamine mononitrate (VITAMIN B-1) 100 MG tabletIndications :Intraparenchymal hemorrhage of brain (HCC) Take 2 tablets (200 mg total) by mouth daily. Active memantine (NAMENDA) 5 MG tabletIndications :Spastic hemiparesis of right dominant side (HCC) Take 1 tablet (5 mg total) by mouth daily. Active modafinil (PROVIGIL) 200 MG tabletIndications :Spastic hemiparesis of right dominant side (HCC) Take 1 tablet (200 mg total) by mouth daily. Active polyethylene glycol (miraLAx) 17 g packetIndications :Spastic hemiparesis of right dominant side (HCC) Take 1 packet (17 g total) by mouth nightly. Active psyllium (METAMUCIL) 58.12 % Pack packetIndications :Spastic hemiparesis of right dominant side (HCC) Take 1 packet by mouth 2 (two) times a day. Active tolterodine (DETROL) 2 MG tabletIndications :Spastic hemiparesis of right dominant side (HCC) Take 1 tablet (2 mg total) by mouth 2 (two) times a day. Active apixaban (ELIQUIS) 5 MG tabletIndications :Thalamic hemorrhage (HCC) Take 1 tablet (5 mg total) by mouth every 12 (twelve) hours around the clock. Active lisinopril (PRINIVIL,ZeSTRIL ) 10 MG tabletIndications :Intraparenchymal hemorrhage of brain (HCC) Take 1 tablet (10 mg total) by mouth daily. 5 12/26/19 26 Active diclofenac (VOLTAREN) 1 % gelIndications:Th alamic hemorrhage (HCC) Apply 2 g topically 3 times daily (every 8 hours) as needed (right wrist pain). Use dosing card to measure dose. Apply to entire affect area. Active glucose (GLUTOSE 15) 40 % oral gelIndications:Ty pe 2 diabetes mellitus with other specified complication, without long-term current use of insulin (HCC) Take 1 Tube (37.5 g total) by mouth every 15 (fifteen) minutes as needed for low blood sugar (between 50 and 69 mg/dL). Active glucose (GLUTOSE 15) 40 % oral gelIndications:Ty pe 2 diabetes mellitus with other specified complication, without long-term current use of insulin (HCC) Take 2 Tubes (75 g total) by mouth every 15 (fifteen) minutes as needed for low blood sugar (less than 50 mg/dL). Active dextrose 50 % solutionIndicatio ns:Type 2 diabetes mellitus with other specified complication, without long-term current use of insulin (HCC) Infuse 25 mL (12.5 g total) into a venous catheter every 15 (fifteen) minutes as needed for low blood sugar (between 50 and 69 mg/dL). Active dextrose 50 % solutionIndicatio ns:Type 2 diabetes mellitus with other specified complication, without long-term current use of insulin (HCC) Infuse 50 mL (25 g total) into a venous catheter every 15 (fifteen) minutes as needed for low blood sugar (less than 50 mg/dL). Active glucagon (GLUCAGEN) 1 mg Recon Soln injectionIndicati ons:Type 2 diabetes mellitus with other specified complication, without long-term current use of insulin (HCC) Inject 1 mg into the shoulder, thigh, or buttocks daily as needed for low blood sugar (for Blood Glucose LESS than 70 mg/dL and NPO and no IV access). Active Active Problems Problem Noted Date Diagnosed Date Fever 12/27/2024 Assessment & Plan (12/29/2024 5:11 PM EDT): Improving X-ray shows possible pneumonia patient will continue IV Rocephin IV antibiotics blood cultures ID following UA negative possible transition to oral antibiotics tomorrow morning if okay ID Assessment & Plan (12/28/2024 5:21 PM EDT): X-ray shows possible pneumonia patient will continue IV Rocephin IV antibiotics blood cultures ID following UA negative still has intermittent low-grade fever Assessment & Plan (12/27/2024 3:52 PM EDT): X-ray shows possible pneumonia patient was lethargic ordered IV antibiotics pending blood cultures ID following UA negative Right wrist pain 12/26/2024 Assessment & Plan (12/29/2024 5:10 PM EDT): Awaiting official x-ray Voltaren gel continue PT OT check uric acid Assessment & Plan (12/28/2024 5:19 PM EDT): Awaiting official x-ray Voltaren gel continue PT OT check uric acid Assessment & Plan (12/27/2024 3:52 PM EDT): Awaiting official x-ray Voltaren gel continue PT OT check uric acid Assessment & Plan (12/26/2024 4:59 PM EDT): Ordered x-ray Voltaren gel continue PT OT check uric acid Wound of ankle 12/11/2024 Assessment & Plan (12/29/2024 5:10 PM EDT): Wound care team following Assessment & Plan (12/28/2024 5:19 PM EDT): Wound care team following Assessment & Plan (12/27/2024 3:47 PM EDT): Wound care team following Assessment & Plan (12/26/2024 4:59 PM EDT): Wound care team following Assessment & Plan (12/25/2024 2:38 PM EDT): Wound care team following Assessment & Plan (12/24/2024 12:56 PM EDT): Wound care team following Assessment & Plan (12/23/2024 11:07 AM EDT): Wound care team following Assessment & Plan (12/22/2024 12:30 PM EDT): Wound care team following Assessment & Plan (12/21/2024 1:46 PM EDT): Wound care team following Assessment & Plan (12/20/2024 11:13 AM EDT): Wound care team following Assessment & Plan (12/19/2024 5:10 PM EDT): Wound care team following Assessment & Plan (12/18/2024 5:09 PM EDT): Wound care team following Assessment & Plan (12/17/2024 2:16 PM EDT): Wound care team following Assessment & Plan (12/16/2024 4:50 PM EDT): Wound care team following Assessment & Plan (12/14/2024 8:35 AM EDT): Wound care team following Assessment & Plan (12/14/2024 8:31 AM EDT): Wound care team following Assessment & Plan (12/12/2024 5:05 PM EDT): Wound care team following Assessment & Plan (12/11/2024 5:12 PM EDT): Wound care team following Neuropathy 12/07/2024 Assessment & Plan (12/29/2024 5:10 PM EDT): Previously on gabapentin but discontinued due to side effects Increased LLE pain 5/24 described as more neuropathic Continue Lyrica and Cymbalta Topical lidocaine prn Assessment & Plan (12/28/2024 5:19 PM EDT): Previously on gabapentin but discontinued due to side effects Increased LLE pain 5/24 described as more neuropathic Continue Lyrica and Cymbalta Topical lidocaine prn Assessment & Plan (12/27/2024 3:47 PM EDT): Previously on gabapentin but discontinued due to side effects Increased LLE pain 5/24 described as more neuropathic Continue Lyrica and Cymbalta Topical lidocaine prn Assessment & Plan (12/26/2024 4:59 PM EDT): Previously on gabapentin but discontinued due to side effects Increased LLE pain 5/24 described as more neuropathic Continue Lyrica and Cymbalta Topical lidocaine prn Assessment & Plan (12/25/2024 2:38 PM EDT): Previously on gabapentin but discontinued due to side effects Increased LLE pain 5/24 described as more neuropathic Continue Lyrica and Cymbalta Topical lidocaine prn Assessment & Plan (12/24/2024 12:56 PM EDT): Previously on gabapentin but discontinued due to side effects Increased LLE pain 5/24 described as more neuropathic Continue Lyrica and Cymbalta Topical lidocaine prn Assessment & Plan (12/23/2024 11:07 AM EDT): Previously on gabapentin but discontinued due to side effects Increased LLE pain 5/24 described as more neuropathic Continue Lyrica and Cymbalta Topical lidocaine prn Assessment & Plan (12/22/2024 12:30 PM EDT): Previously on gabapentin but discontinued due to side effects Increased LLE pain 5/24 described as more neuropathic Continue Lyrica and Cymbalta Topical lidocaine prn Assessment & Plan (12/21/2024 1:46 PM EDT): Previously on gabapentin but discontinued due to side effects Increased LLE pain 5/24 described as more neuropathic Continue Lyrica and Cymbalta Topical lidocaine prn Assessment & Plan (12/20/2024 11:13 AM EDT): Previously on gabapentin but discontinued due to side effects Increased LLE pain 5/24 described as more neuropathic Continue Lyrica and Cymbalta Topical lidocaine prn Assessment & Plan (12/19/2024 5:10 PM EDT): Previously on gabapentin but discontinued due to side effects Increased LLE pain 5/24 described as more neuropathic Continue Lyrica and Cymbalta Topical lidocaine prn Assessment & Plan (12/18/2024 5:09 PM EDT): Previously on gabapentin but discontinued due to side effects Increased LLE pain 5/24 described as more neuropathic Continue Lyrica and Cymbalta Topical lidocaine prn Assessment & Plan (12/17/2024 2:16 PM EDT): Previously on gabapentin but discontinued due to side effects Increased LLE pain 5/24 described as more neuropathic Continue Lyrica and Cymbalta Topical lidocaine prn Assessment & Plan (12/16/2024 4:50 PM EDT): Previously on gabapentin but discontinued due to side effects Increased LLE pain 5/24 described as more neuropathic Continue Lyrica and Cymbalta Topical lidocaine prn Assessment & Plan (12/14/2024 8:35 AM EDT): Previously on gabapentin but discontinued due to side effects Increased LLE pain 5/24 described as more neuropathic Continue Lyrica and Cymbalta Topical lidocaine prn Assessment & Plan (12/14/2024 8:31 AM EDT): Previously on gabapentin but discontinued due to side effects Increased LLE pain 5/24 described as more neuropathic Continue Lyrica and Cymbalta Topical lidocaine prn Assessment & Plan (12/12/2024 5:05 PM EDT): Previously on gabapentin but discontinued due to side effects Increased LLE pain 12/07 described as more neuropathic Continue Lyrica and Cymbalta Topical lidocaine prn Assessment & Plan (12/11/2024 5:12 PM EDT): Previously on gabapentin but discontinued due to side effects Increased LLE pain 24 described as more neuropathic Continue Lyrica and Cymbalta Topical lidocaine prn Assessment & Plan (12/10/2024 1:57 PM EDT): Previously on gabapentin but discontinued due to side effects Increased LLE pain 12/07 described as more neuropathic Continue Lyrica and Cymbalta Topical lidocaine prn Assessment & Plan (12/10/2024 8:06 AM EDT): Previously on gabapentin but discontinued due to side effects Increased LLE pain 12/07 described as more neuropathic Continue Lyrica and Cymbalta Topical lidocaine prn Assessment & Plan (12/08/2024 2:50 PM EDT): Previously on gabapentin but discontinued due to side effects Increased LLE pain 12/07 described as more neuropathic Continue Lyrica and Cymbalta Topical lidocaine prn Assessment & Plan (12/07/2024 12:04 PM EDT): Previously on gabapentin but discontinued due to side effects Increased LLE pain today described as more neuropathic Continue Lyrica and Cymbalta Discussed with PM&R who will add topical agent Hold off on xray for now Spastic hemiparesis of right dominant side 12/07 Neuropathic pain 12/07/2024 Assessment & Plan (12/29/2024 5:10 PM EDT): Previously on gabapentin but discontinued due to side effects Increased LLE pain 5/24 described as more neuropathic Continue Lyrica and Cymbalta Topical lidocaine prn Assessment & Plan (12/28/2024 5:19 PM EDT): Previously on gabapentin but discontinued due to side effects Increased LLE pain 5/24 described as more neuropathic Continue Lyrica and Cymbalta Topical lidocaine prn Assessment & Plan (12/27/2024 3:47 PM EDT): Previously on gabapentin but discontinued due to side effects Increased LLE pain 5/24 described as more neuropathic Continue Lyrica and Cymbalta Topical lidocaine prn Assessment & Plan (12/26/2024 4:59 PM EDT): Previously on gabapentin but discontinued due to side effects Increased LLE pain 5/24 described as more neuropathic Continue Lyrica and Cymbalta Topical lidocaine prn Assessment & Plan (12/25/2024 2:38 PM EDT): Previously on gabapentin but discontinued due to side effects Increased LLE pain 5/24 described as more neuropathic Continue Lyrica and Cymbalta Topical lidocaine prn Assessment & Plan (12/24/2024 12:56 PM EDT): Previously on gabapentin but discontinued due to side effects Increased LLE pain 5/24 described as more neuropathic Continue Lyrica and Cymbalta Topical lidocaine prn Assessment & Plan (12/23/2024 11:07 AM EDT): Previously on gabapentin but discontinued due to side effects Increased LLE pain 5/24 described as more neuropathic Continue Lyrica and Cymbalta Topical lidocaine prn Assessment & Plan (12/22/2024 12:30 PM EDT): Previously on gabapentin but discontinued due to side effects Increased LLE pain 5/24 described as more neuropathic Continue Lyrica and Cymbalta Topical lidocaine prn Assessment & Plan (12/21/2024 1:46 PM EDT): Previously on gabapentin but discontinued due to side effects Increased LLE pain 5/24 described as more neuropathic Continue Lyrica and Cymbalta Topical lidocaine prn Assessment & Plan (12/20/2024 11:13 AM EDT): Previously on gabapentin but discontinued due to side effects Increased LLE pain 5/24 described as more neuropathic Continue Lyrica and Cymbalta Topical lidocaine prn Assessment & Plan (12/19/2024 5:10 PM EDT): Previously on gabapentin but discontinued due to side effects Increased LLE pain 5/24 described as more neuropathic Continue Lyrica and Cymbalta Topical lidocaine prn Assessment & Plan (12/18/2024 5:09 PM EDT): Previously on gabapentin but discontinued due to side effects Increased LLE pain 5/24 described as more neuropathic Continue Lyrica and Cymbalta Topical lidocaine prn Assessment & Plan (12/17/2024 2:16 PM EDT): Previously on gabapentin but discontinued due to side effects Increased LLE pain 5/24 described as more neuropathic Continue Lyrica and Cymbalta Topical lidocaine prn Assessment & Plan (12/16/2024 4:50 PM EDT): Previously on gabapentin but discontinued due to side effects Increased LLE pain 5/24 described as more neuropathic Continue Lyrica and Cymbalta Topical lidocaine prn Assessment & Plan (12/14/2024 8:35 AM EDT): Previously on gabapentin but discontinued due to side effects Increased LLE pain 5/24 described as more neuropathic Continue Lyrica and Cymbalta Topical lidocaine prn Assessment & Plan (12/14/2024 8:31 AM EDT): Previously on gabapentin but discontinued due to side effects Increased LLE pain 5/24 described as more neuropathic Continue Lyrica and Cymbalta Topical lidocaine prn Assessment & Plan (12/12/2024 5:05 PM EDT): Previously on gabapentin but discontinued due to side effects Increased LLE pain 5/24 described as more neuropathic Continue Lyrica and Cymbalta Topical lidocaine prn Assessment & Plan (12/11/2024 5:12 PM EDT): Previously on gabapentin but discontinued due to side effects Increased LLE pain 5/24 described as more neuropathic Continue Lyrica and Cymbalta Topical lidocaine prn Assessment & Plan (12/10/2024 1:57 PM EDT): Previously on gabapentin but discontinued due to side effects Increased LLE pain 12/07 described as more neuropathic Continue Lyrica and Cymbalta Topical lidocaine prn Assessment & Plan (12/10/2024 8:06 AM EDT): Previously on gabapentin but discontinued due to side effects Increased LLE pain 12/07 described as more neuropathic Continue Lyrica and Cymbalta Topical lidocaine prn Assessment & Plan (12/08/2024 2:50 PM EDT): Previously on gabapentin but discontinued due to side effects Increased LLE pain 12/07 described as more neuropathic Continue Lyrica and Cymbalta Topical lidocaine prn Depression 11/23/2024 Assessment & Plan (12/29/2024 5:10 PM EDT): Continue home Cymbalta Assessment & Plan (12/28/2024 5:19 PM EDT): Continue home Cymbalta Assessment & Plan (12/27/2024 3:47 PM EDT): Continue home Cymbalta Assessment & Plan (12/26/2024 4:59 PM EDT): Continue home Cymbalta Assessment & Plan (12/25/2024 2:38 PM EDT): Continue home Cymbalta Assessment & Plan (12/24/2024 12:56 PM EDT): Continue home Cymbalta Assessment & Plan (12/23/2024 11:07 AM EDT): Continue home Cymbalta Assessment & Plan (12/22/2024 12:30 PM EDT): Continue home Cymbalta Assessment & Plan (12/21/2024 1:46 PM EDT): Continue home Cymbalta Assessment & Plan (12/20/2024 11:13 AM EDT): Continue home Cymbalta Assessment & Plan (12/19/2024 5:10 PM EDT): Continue home Cymbalta Assessment & Plan (12/18/2024 5:09 PM EDT): Continue home Cymbalta Assessment & Plan (12/17/2024 2:16 PM EDT): Continue home Cymbalta, mood remarkable improved Assessment & Plan (12/16/2024 4:50 PM EDT): Continue home Cymbalta, mood remarkable improved Assessment & Plan (12/14/2024 8:35 AM EDT): Continue home Cymbalta, mood remarkable improved Assessment & Plan (12/14/2024 8:31 AM EDT): Continue home Cymbalta, mood remarkable improved Assessment & Plan (12/12/2024 5:05 PM EDT): Continue home Cymbalta, mood remarkable improved Assessment & Plan (12/11/2024 5:12 PM EDT): Continue home Cymbalta Assessment & Plan (12/10/2024 1:57 PM EDT): Continue home Cymbalta Assessment & Plan (12/10/2024 8:06 AM EDT): Continue home Cymbalta Assessment & Plan (12/08/2024 2:50 PM EDT): Continue home Cymbalta Assessment & Plan (12/07/2024 12:04 PM EDT): Continue home Cymbalta Assessment & Plan (12/06/2024 12:02 PM EDT): Continue home Cymbalta Assessment & Plan (12/05/2024 5:00 PM EDT): Continue home Cymbalta Assessment & Plan (12/04/2024 9:06 PM EDT): Continue home Cymbalta Assessment & Plan (12/03/2024 6:17 PM EDT): , Cooperative continue continue medications Assessment & Plan (12/02/2024 12:29 PM EDT): , Cooperative continue continue medications Assessment & Plan (12/01/2024 8:42 AM EDT): , Cooperative continue continue medications Assessment & Plan (11/30/2024 4:28 PM EDT): , Cooperative continue continue medications Assessment & Plan (11/29/2024 4:31 PM EDT): , Cooperative continue continue medications Assessment & Plan (11/28/2024 5:14 PM EDT): , Cooperative continue continue medications Assessment & Plan (11/27/2024 4:31 PM EDT): , Cooperative continue continue medications Aphasia 11/23/2024 Assessment & Plan (12/17/2024 2:16 PM EDT): Improving continue speech therapy Assessment & Plan (12/16/2024 4:50 PM EDT): Improving continue speech therapy Assessment & Plan (12/14/2024 8:35 AM EDT): Improving continue speech therapy Assessment & Plan (12/14/2024 8:31 AM EDT): Improving continue speech therapy Assessment & Plan (12/12/2024 5:05 PM EDT): Improving continue speech therapy Assessment & Plan (12/11/2024 5:12 PM EDT): Improving continue speech therapy Assessment & Plan (12/10/2024 1:57 PM EDT): Improving continue speech therapy Assessment & Plan (12/10/2024 8:06 AM EDT): Improving continue speech therapy Assessment & Plan (12/08/2024 2:50 PM EDT): Improving continue speech therapy Assessment & Plan (12/07/2024 12:04 PM EDT): Improving continue speech therapy Assessment & Plan (12/03/2024 6:17 PM EDT): Improving continue speech therapy Assessment & Plan (12/02/2024 12:29 PM EDT): Improving continue speech therapy Assessment & Plan (12/01/2024 8:42 AM EDT): Improving continue speech therapy Assessment & Plan (11/30/2024 4:28 PM EDT): Improving continue speech therapy Assessment & Plan (11/29/2024 4:31 PM EDT): Improving continue speech therapy Assessment & Plan (11/28/2024 5:17 PM EDT): Improving continue speech therapy Assessment & Plan (11/27/2024 4:31 PM EDT): Continue speech therapy Type 2 diabetes mellitus 11/23/2024 Assessment & Plan (12/29/2024 5:10 PM EDT): A1c 6.7% / Was on Lantus 5 units qday and lispro 4 units tidcc with sliding scale during acute hospitalization Sliding scale insulin Metformin 500 mg bidcc started in IRU, discontinued due to lactic acidosis and controlled glucose Initially on diabetic diet, now on regular per patient/family request, glucose remains grossly controlled Assessment & Plan (12/28/2024 5:19 PM EDT): A1c 6.7% 11/12 Was on Lantus 5 units qday and lispro 4 units tidcc with sliding scale during acute hospitalization Sliding scale insulin Metformin 500 mg bidcc started in IRU, discontinued due to lactic acidosis and controlled glucose Initially on diabetic diet, now on regular per patient/family request, glucose remains grossly controlled Assessment & Plan (12/27/2024 3:47 PM EDT): A1c 6.7% 11/12 Was on Lantus 5 units qday and lispro 4 units tidcc with sliding scale during acute hospitalization Sliding scale insulin Metformin 500 mg bidcc started in IRU, discontinued due to lactic acidosis and controlled glucose Initially on diabetic diet, now on regular per patient/family request, glucose remains grossly controlled Assessment & Plan (12/26/2024 4:59 PM EDT): A1c 6.7% 11/12 Was on Lantus 5 units qday and lispro 4 units tidcc with sliding scale during acute hospitalization Sliding scale insulin Metformin 500 mg bidcc started in IRU, discontinued due to lactic acidosis and controlled glucose Initially on diabetic diet, now on regular per patient/family request, glucose remains grossly controlled Assessment & Plan (12/25/2024 2:38 PM EDT): A1c 6.7% / Was on Lantus 5 units qday and lispro 4 units tidcc with sliding scale during acute hospitalization Sliding scale insulin Metformin 500 mg bidcc started in IRU, discontinued due to lactic acidosis and controlled glucose Initially on diabetic diet, now on regular per patient/family request, glucose remains grossly controlled Assessment & Plan (12/24/2024 12:56 PM EDT): A1c 6.7% 11/12 Was on Lantus 5 units qday and lispro 4 units tidcc with sliding scale during acute hospitalization Sliding scale insulin Metformin 500 mg bidcc started in IRU, discontinued due to lactic acidosis and controlled glucose Initially on diabetic diet, now on regular per patient/family request, glucose remains grossly controlled Assessment & Plan (12/23/2024 11:07 AM EDT): A1c 6.7% 11/12 Was on Lantus 5 units qday and lispro 4 units tidcc with sliding scale during acute hospitalization Sliding scale insulin Metformin 500 mg bidcc started in IRU, discontinued due to lactic acidosis and controlled glucose Initially on diabetic diet, now on regular per patient/family request, glucose remains grossly controlled Assessment & Plan (12/22/2024 12:30 PM EDT): A1c 6.7% 11/12 Was on Lantus 5 units qday and lispro 4 units tidcc with sliding scale during acute hospitalization Sliding scale insulin Metformin 500 mg bidcc started in IRU, discontinued due to lactic acidosis and controlled glucose Initially on diabetic diet, now on regular per patient/family request, glucose remains grossly controlled, did have a glucose of 244 at lunch today, continue to monitor Assessment & Plan (12/21/2024 1:46 PM EDT): A1c 6.7% 11/12 Was on Lantus 5 units qday and lispro 4 units tidcc with sliding scale during acute hospitalization Sliding scale insulin Metformin 500 mg bidcc started in IRU, discontinued due to lactic acidosis and controlled glucose Initially on diabetic diet, now on regular per patient/family request, glucose remains grossly controlled Assessment & Plan (12/20/2024 11:13 AM EDT): A1c 6.7% 11/12 Was on Lantus 5 units qday and lispro 4 units tidcc with sliding scale during acute hospitalization Sliding scale insulin Metformin 500 mg bidcc started in IRU, discontinued due to lactic acidosis and controlled glucose Initially on diabetic diet, now on regular per patient/family request, glucose remains grossly controlled Assessment & Plan (12/19/2024 5:10 PM EDT): A1c 6.7% 11/12 Was on Lantus 5 units qday and lispro 4 units tidcc with sliding scale during acute hospitalization Sliding scale insulin Metformin 500 mg bidcc started in IRU, discontinued due to lactic acidosis and controlled glucose Initially on diabetic diet, now on regular per patient/family request, glucose remains grossly controlled Assessment & Plan (12/18/2024 5:09 PM EDT): A1c 6.7% 11/12 Was on Lantus 5 units qday and lispro 4 units tidcc with sliding scale during acute hospitalization Sliding scale insulin Metformin 500 mg bidcc started in IRU, discontinued due to lactic acidosis and controlled glucose Initially on diabetic diet, now on regular per patient/family request, glucose remains controlled Assessment & Plan (12/17/2024 2:16 PM EDT): A1c 6.7% 11/12 Was on Lantus 5 units qday and lispro 4 units tidcc with sliding scale during acute hospitalization Sliding scale insulin Metformin 500 mg bidcc started in IRU, discontinued due to lactic acidosis and controlled glucose Initially on diabetic diet, now on regular per patient/family request, glucose remains controlled Assessment & Plan (12/16/2024 4:50 PM EDT): A1c 6.7% 11/12 Was on Lantus 5 units qday and lispro 4 units tidcc with sliding scale during acute hospitalization Sliding scale insulin Metformin 500 mg bidcc started in IRU, discontinued due to lactic acidosis and controlled glucose Initially on diabetic diet, now on regular per patient/family request, glucose remains controlled Assessment & Plan (12/14/2024 8:35 AM EDT): A1c 6.7% 11/12 Was on Lantus 5 units qday and lispro 4 units tidcc with sliding scale during acute hospitalization Sliding scale insulin Metformin 500 mg bidcc started in IRU, discontinued due to lactic acidosis and controlled glucose Initially on diabetic diet, now on regular per patient/family request, glucose remains controlled Assessment & Plan (12/14/2024 8:31 AM EDT): A1c 6.7% / Was on Lantus 5 units qday and lispro 4 units tidcc with sliding scale during acute hospitalization Sliding scale insulin Metformin 500 mg bidcc started in IRU, discontinued due to lactic acidosis and controlled glucose Initially on diabetic diet, now on regular per patient/family request, glucose remains controlled Assessment & Plan (12/12/2024 5:05 PM EDT): A1c 6.7% 11/12 Was on Lantus 5 units qday and lispro 4 units tidcc with sliding scale during acute hospitalization Sliding scale insulin Metformin 500 mg bidcc started in IRU, discontinued due to lactic acidosis and controlled glucose Initially on diabetic diet, now on regular per patient/family request, glucose remains controlled Assessment & Plan (12/11/2024 5:12 PM EDT): A1c 6.7% 11/12 Was on Lantus 5 units qday and lispro 4 units tidcc with sliding scale during acute hospitalization Sliding scale insulin Metformin 500 mg bidcc started in IRU, discontinued due to lactic acidosis and controlled glucose Initially on diabetic diet, now on regular per patient/family request, glucose remains controlled Assessment & Plan (12/10/2024 1:57 PM EDT): A1c 6.7% 11/12 Was on Lantus 5 units qday and lispro 4 units tidcc with sliding scale during acute hospitalization Sliding scale insulin Metformin 500 mg bidcc started in IRU, discontinued due to lactic acidosis and controlled glucose Initially on diabetic diet, now on regular per patient/family request, glucose remains controlled Assessment & Plan (12/10/2024 8:06 AM EDT): A1c 6.7% 11/12 Was on Lantus 5 units qday and lispro 4 units tidcc with sliding scale during acute hospitalization Sliding scale insulin Metformin 500 mg bidcc started in IRU, discontinued due to lactic acidosis and controlled glucose Initially on diabetic diet, now on regular per patient/family request, glucose remains controlled Assessment & Plan (12/08/2024 2:50 PM EDT): A1c 6.7% 11/12 Was on Lantus 5 units qday and lispro 4 units tidcc with sliding scale during acute hospitalization Sliding scale insulin Metformin 500 mg bidcc started in IRU, discontinued due to lactic acidosis and controlled glucose Initially on diabetic diet, now on regular per patient/family request, glucose remains controlled Assessment & Plan (12/07/2024 12:04 PM EDT): A1c 6.7% 11/12 Was on Lantus 5 units qday and lispro 4 units tidcc with sliding scale during acute hospitalization Sliding scale insulin Metformin 500 mg bidcc started in IRU, discontinued due to lactic acidosis and controlled glucose Initially on diabetic diet, now on regular per patient/family request, glucose remains controlled Assessment & Plan (12/06/2024 12:02 PM EDT): A1c 6.7% 11/12 Was on Lantus 5 units qday and lispro 4 units tidcc with sliding scale during acute hospitalization Sliding scale insulin Metformin 500 mg bidcc started in IRU, discontinued due to lactic acidosis and controlled glucose Initially on diabetic diet, now on regular per patient/family request, glucose remains controlled Assessment & Plan (12/05/2024 5:00 PM EDT): A1c 6.7% 11/12 Was on Lantus 5 units qday and lispro 4 units tidcc with sliding scale during acute hospitalization Sliding scale insulin Metformin 500 mg bidcc started in IRU, discontinued due to lactic acidosis and controlled glucose Assessment & Plan (12/04/2024 9:06 PM EDT): A1c 6.7% 11/12 Was on Lantus 5 units qday and lispro 4 units tidcc with sliding scale during acute hospitalization Sliding scale insulin Metformin 500 mg bidcc started in IRU, discontinue due to lactic acidosis and controlled glucose Assessment & Plan (12/03/2024 6:17 PM EDT): Monitor blood sugar moderate currently Assessment & Plan (12/02/2024 12:29 PM EDT): Monitor blood sugar moderate currently Assessment & Plan (12/01/2024 8:42 AM EDT): Monitor blood sugar moderate currently Assessment & Plan (11/30/2024 4:28 PM EDT): Monitor blood sugar moderate currently Assessment & Plan (11/29/2024 4:31 PM EDT): Monitor blood sugar moderate currently Assessment & Plan (11/28/2024 5:14 PM EDT): Monitor blood sugar moderate currently Assessment & Plan (11/27/2024 4:31 PM EDT): Monitor blood sugar moderate currently Neurogenic bowel 11/23/2024 Assessment & Plan (12/03/2024 6:17 PM EDT): Continue bowel regimen Assessment & Plan (12/02/2024 12:29 PM EDT): Continue bowel regimen Assessment & Plan (12/01/2024 8:42 AM EDT): Continue bowel regimen Assessment & Plan (11/30/2024 4:28 PM EDT): Continue bowel regimen Assessment & Plan (11/29/2024 4:31 PM EDT): Continue bowel regimen Assessment & Plan (11/28/2024 5:14 PM EDT): Continue bowel regimen Assessment & Plan (11/27/2024 4:31 PM EDT): Continue bowel regimen Neurogenic bladder 11/23/2024 Assessment & Plan (12/03/2024 6:17 PM EDT): Continue tolerance program Assessment & Plan (12/02/2024 12:29 PM EDT): Continue tolerance program Assessment & Plan (12/01/2024 8:42 AM EDT): Continue tolerance program Assessment & Plan (11/30/2024 4:28 PM EDT): Continue tolerance program Assessment & Plan (11/29/2024 4:31 PM EDT): Continue tolerance program Assessment & Plan (11/28/2024 5:14 PM EDT): Continue tolerance program Assessment & Plan (11/27/2024 4:31 PM EDT): Continue tolerance program Hypokalemia 11/23/2024 Assessment & Plan (12/29/2024 5:10 PM EDT): Suspect SIADH similar to previous Required salt tabs during acute hospitalization Fluid restriction 1800 mL Hyponatremia improving 133 Spironolactone on hold per above, replete K prn with goal >4 and Mg >2 Mg 1.6 10, repleting Assessment & Plan (12/28/2024 5:19 PM EDT): Suspect SIADH similar to previous Required salt tabs during acute hospitalization Fluid restriction 1800 mL Monitoring off salt tabs for now sodium today 130 he appears dry ordered gentle IV fluids Spironolactone on hold per above, replete K prn with goal >4 and Mg >2 Mg 1.6 /10, repleting Assessment & Plan (12/27/2024 3:53 PM EDT): Suspect SIADH similar to previous Required salt tabs during acute hospitalization Fluid restriction 1800 mL Monitoring off salt tabs for now sodium today 130 he appears dry ordered gentle IV fluids Spironolactone on hold per above, replete K prn with goal >4 and Mg >2 Mg 1.6 6/10, repleting Assessment & Plan (12/26/2024 4:59 PM EDT): Suspect SIADH similar to previous Required salt tabs during acute hospitalization Fluid restriction 1800 mL Monitoring off salt tabs for now Spironolactone on hold per above, replete K prn with goal >4 and Mg >2 Mg 1.6 12/24, repleting Assessment & Plan (12/25/2024 2:38 PM EDT): Suspect SIADH similar to previous Required salt tabs during acute hospitalization Fluid restriction 1800 mL Monitoring off salt tabs for now Spironolactone on hold per above, replete K prn with goal >4 and Mg >2 Mg 1.6 12/24, repleting Assessment & Plan (12/24/2024 12:56 PM EDT): Suspect SIADH similar to previous Required salt tabs during acute hospitalization Fluid restriction 1800 mL Monitoring off salt tabs for now Spironolactone on hold per above, replete K prn with goal >4 and Mg >2 Mg 1.6 12/24, repleting Assessment & Plan (12/23/2024 11:07 AM EDT): Suspect SIADH similar to previous Required salt tabs during acute hospitalization Fluid restriction 1800 mL Monitoring off salt tabs for now Spironolactone on hold per above, replete K prn with goal >4 and Mg >2 K 4.3, Mg 1.6 today, replete magnesium x4 doses Assessment & Plan (12/22/2024 12:30 PM EDT): Suspect SIADH similar to previous Required salt tabs during acute hospitalization Fluid restriction 1800 mL Monitoring off salt tabs for now Spironolactone on hold per above, replete K prn with goal >4 and Mg >2 K and mg with weekly labs tomorrow Assessment & Plan (12/21/2024 1:46 PM EDT): Suspect SIADH similar to previous Required salt tabs during acute hospitalization Fluid restriction 1800 mL Monitoring off salt tabs for now Spironolactone on hold per above, replete K prn with goal >4 and Mg >2 K and mg mildly low today, replete Assessment & Plan (12/20/2024 11:13 AM EDT): Suspect SIADH similar to previous Required salt tabs during acute hospitalization Fluid restriction 1800 mL Monitoring off salt tabs for now Spironolactone on hold per above, replete K prn with goal >4 and Mg >2 Check K tomorrow as he has been of spironolactone since 12/17 Assessment & Plan (12/19/2024 5:10 PM EDT): Suspect SIADH similar to previous Required salt tabs during acute hospitalization Fluid restriction 1800 mL Monitoring off salt tabs for now Spironolactone on hold per above, replete K prn with goal >4 and Mg >2 Assessment & Plan (12/18/2024 5:09 PM EDT): Suspect SIADH similar to previous Required salt tabs during acute hospitalization Fluid restriction 1800 mL Monitoring off salt tabs for now Spironolactone on hold per above, replete K prn with goal >4 and Mg >2 Assessment & Plan (12/17/2024 2:16 PM EDT): . Blood work showed improved electrolytes Suspect SIADH similar to previous Required salt tabs during acute hospitalization Fluid restriction 1800 mL Monitoring off salt tabs for now Spironolactone per above, replete K prn with goal >4 and Mg >2 Continue monitoring labs Assessment & Plan (12/16/2024 4:50 PM EDT): . Blood work showed improved electrolytes Suspect SIADH similar to previous Required salt tabs during acute hospitalization Fluid restriction 1800 mL Monitoring off salt tabs for now Spironolactone per above, replete K prn with goal >4 and Mg >2 Continue monitoring labs Assessment & Plan (12/14/2024 8:35 AM EDT): Suspect SIADH similar to previous Required salt tabs during acute hospitalization Fluid restriction 1800 mL Monitoring off salt tabs for now Spironolactone per above, replete K prn with goal >4 and Mg >2 Continue monitoring labs Assessment & Plan (12/14/2024 8:31 AM EDT): Suspect SIADH similar to previous Required salt tabs during acute hospitalization Fluid restriction 1800 mL Monitoring off salt tabs for now Spironolactone per above, replete K prn with goal >4 and Mg >2 Continue monitoring labs Assessment & Plan (12/12/2024 5:05 PM EDT): Suspect SIADH similar to previous Required salt tabs during acute hospitalization Fluid restriction 1800 mL Monitoring off salt tabs for now Spironolactone per above, replete K prn with goal >4 and Mg >2 Continue monitoring labs Assessment & Plan (12/11/2024 5:12 PM EDT): Suspect SIADH similar to previous Required salt tabs during acute hospitalization Fluid restriction 1800 mL Monitoring off salt tabs for now Spironolactone per above, replete K prn with goal >4 and Mg >2 Assessment & Plan (12/10/2024 1:57 PM EDT): Suspect SIADH similar to previous Required salt tabs during acute hospitalization Fluid restriction 1800 mL Monitoring off salt tabs for now Spironolactone per above, replete K prn with goal >4 and Mg >2 Assessment & Plan (12/10/2024 8:06 AM EDT): Suspect SIADH similar to previous Required salt tabs during acute hospitalization Fluid restriction 1800 mL Monitoring off salt tabs for now Spironolactone per above, replete K prn with goal >4 and Mg >2 Assessment & Plan (12/08/2024 2:50 PM EDT): Suspect SIADH similar to previous Required salt tabs during acute hospitalization Fluid restriction 1800 mL Monitoring off salt tabs for now Spironolactone per above, replete K prn with goal >4 and Mg >2 Assessment & Plan (12/07/2024 12:04 PM EDT): Suspect SIADH similar to previous Required salt tabs during acute hospitalization Fluid restriction 1800 mL Monitoring off salt tabs for now Spironolactone per above, replete K prn with goal >4 and Mg >2 Assessment & Plan (12/06/2024 12:02 PM EDT): Suspect SIADH similar to previous Required salt tabs during acute hospitalization Fluid restriction 1800 mL Monitoring off salt tabs for now Spironolactone per above, replete K prn with goal >4 and Mg >2 Assessment & Plan (12/05/2024 5:00 PM EDT): Suspect SIADH similar to previous Required salt tabs during acute hospitalization Fluid restriction 1500 mL, increase to 1800 mL Monitoring off salt tabs for now Spironolactone per above, replete K prn with goal >4 and Mg >2 Assessment & Plan (12/04/2024 9:06 PM EDT): Suspect SIADH similar to previous Required salt tabs during acute hospitalization Fluid restriction 1500 mL Monitoring off salt tabs for now Spironolactone per above, replete K prn with goal >4 and Mg >2 Assessment & Plan (12/03/2024 6:17 PM EDT): Monitor replace accordingly Assessment & Plan (12/02/2024 12:29 PM EDT): Monitor replace accordingly Assessment & Plan (12/01/2024 8:42 AM EDT): Monitor replace accordingly Assessment & Plan (11/30/2024 4:28 PM EDT): Monitor replace accordingly Assessment & Plan (11/29/2024 4:31 PM EDT): Monitor replace accordingly Assessment & Plan (11/28/2024 5:14 PM EDT): Monitor replace accordingly Assessment & Plan (11/27/2024 4:31 PM EDT): Monitor replace accordingly Hypomagnesemia 11/23/2024 Assessment & Plan (12/29/2024 5:10 PM EDT): Suspect SIADH similar to previous Required salt tabs during acute hospitalization Fluid restriction 1800 mL Hyponatremia improving 133 Spironolactone on hold per above, replete K prn with goal >4 and Mg >2 Mg 1.6 610, repleting Assessment & Plan (12/28/2024 5:19 PM EDT): Suspect SIADH similar to previous Required salt tabs during acute hospitalization Fluid restriction 1800 mL Monitoring off salt tabs for now sodium today 130 he appears dry ordered gentle IV fluids Spironolactone on hold per above, replete K prn with goal >4 and Mg >2 Mg 1.6 10, repleting Assessment & Plan (12/27/2024 3:53 PM EDT): Suspect SIADH similar to previous Required salt tabs during acute hospitalization Fluid restriction 1800 mL Monitoring off salt tabs for now sodium today 130 he appears dry ordered gentle IV fluids Spironolactone on hold per above, replete K prn with goal >4 and Mg >2 Mg 1.6 10, repleting Assessment & Plan (12/26/2024 4:59 PM EDT): Suspect SIADH similar to previous Required salt tabs during acute hospitalization Fluid restriction 1800 mL Monitoring off salt tabs for now Spironolactone on hold per above, replete K prn with goal >4 and Mg >2 Mg 1.6 12/24, repleting Assessment & Plan (12/25/2024 2:38 PM EDT): Suspect SIADH similar to previous Required salt tabs during acute hospitalization Fluid restriction 1800 mL Monitoring off salt tabs for now Spironolactone on hold per above, replete K prn with goal >4 and Mg >2 Mg 1.6 10, repleting Assessment & Plan (12/24/2024 12:56 PM EDT): Suspect SIADH similar to previous Required salt tabs during acute hospitalization Fluid restriction 1800 mL Monitoring off salt tabs for now Spironolactone on hold per above, replete K prn with goal >4 and Mg >2 Mg 1.6 12/24, repleting Assessment & Plan (12/23/2024 11:07 AM EDT): Suspect SIADH similar to previous Required salt tabs during acute hospitalization Fluid restriction 1800 mL Monitoring off salt tabs for now Spironolactone on hold per above, replete K prn with goal >4 and Mg >2 K 4.3, Mg 1.6 today, replete magnesium x4 doses Assessment & Plan (12/22/2024 12:30 PM EDT): Suspect SIADH similar to previous Required salt tabs during acute hospitalization Fluid restriction 1800 mL Monitoring off salt tabs for now Spironolactone on hold per above, replete K prn with goal >4 and Mg >2 K and mg with weekly labs tomorrow Assessment & Plan (12/21/2024 1:46 PM EDT): Suspect SIADH similar to previous Required salt tabs during acute hospitalization Fluid restriction 1800 mL Monitoring off salt tabs for now Spironolactone on hold per above, replete K prn with goal >4 and Mg >2 K and mg mildly low today, replete Assessment & Plan (12/20/2024 11:13 AM EDT): Suspect SIADH similar to previous Required salt tabs during acute hospitalization Fluid restriction 1800 mL Monitoring off salt tabs for now Spironolactone on hold per above, replete K prn with goal >4 and Mg >2 Check K tomorrow as he has been of spironolactone since 12/17 Assessment & Plan (12/19/2024 5:10 PM EDT): Suspect SIADH similar to previous Required salt tabs during acute hospitalization Fluid restriction 1800 mL Monitoring off salt tabs for now Spironolactone on hold per above, replete K prn with goal >4 and Mg >2 Assessment & Plan (12/18/2024 5:09 PM EDT): Suspect SIADH similar to previous Required salt tabs during acute hospitalization Fluid restriction 1800 mL Monitoring off salt tabs for now Spironolactone on hold per above, replete K prn with goal >4 and Mg >2 Assessment & Plan (12/17/2024 2:16 PM EDT): . Blood work showed improved electrolytes Suspect SIADH similar to previous Required salt tabs during acute hospitalization Fluid restriction 1800 mL Monitoring off salt tabs for now Spironolactone per above, replete K prn with goal >4 and Mg >2 Continue monitoring labs Assessment & Plan (12/16/2024 4:50 PM EDT): . Blood work showed improved electrolytes Suspect SIADH similar to previous Required salt tabs during acute hospitalization Fluid restriction 1800 mL Monitoring off salt tabs for now Spironolactone per above, replete K prn with goal >4 and Mg >2 Continue monitoring labs Assessment & Plan (12/14/2024 8:35 AM EDT): Suspect SIADH similar to previous Required salt tabs during acute hospitalization Fluid restriction 1800 mL Monitoring off salt tabs for now Spironolactone per above, replete K prn with goal >4 and Mg >2 Continue monitoring labs Assessment & Plan (12/14/2024 8:31 AM EDT): Suspect SIADH similar to previous Required salt tabs during acute hospitalization Fluid restriction 1800 mL Monitoring off salt tabs for now Spironolactone per above, replete K prn with goal >4 and Mg >2 Continue monitoring labs Assessment & Plan (12/12/2024 5:05 PM EDT): Suspect SIADH similar to previous Required salt tabs during acute hospitalization Fluid restriction 1800 mL Monitoring off salt tabs for now Spironolactone per above, replete K prn with goal >4 and Mg >2 Continue monitoring labs Assessment & Plan (12/11/2024 5:12 PM EDT): Suspect SIADH similar to previous Required salt tabs during acute hospitalization Fluid restriction 1800 mL Monitoring off salt tabs for now Spironolactone per above, replete K prn with goal >4 and Mg >2 Assessment & Plan (12/10/2024 1:57 PM EDT): Suspect SIADH similar to previous Required salt tabs during acute hospitalization Fluid restriction 1800 mL Monitoring off salt tabs for now Spironolactone per above, replete K prn with goal >4 and Mg >2 Assessment & Plan (12/10/2024 8:06 AM EDT): Suspect SIADH similar to previous Required salt tabs during acute hospitalization Fluid restriction 1800 mL Monitoring off salt tabs for now Spironolactone per above, replete K prn with goal >4 and Mg >2 Assessment & Plan (12/08/2024 2:50 PM EDT): Suspect SIADH similar to previous Required salt tabs during acute hospitalization Fluid restriction 1800 mL Monitoring off salt tabs for now Spironolactone per above, replete K prn with goal >4 and Mg >2 Assessment & Plan (12/07/2024 12:04 PM EDT): Suspect SIADH similar to previous Required salt tabs during acute hospitalization Fluid restriction 1800 mL Monitoring off salt tabs for now Spironolactone per above, replete K prn with goal >4 and Mg >2 Assessment & Plan (12/03/2024 6:17 PM EDT): Monitoring particularly Assessment & Plan (12/02/2024 12:29 PM EDT): Monitoring particularly Assessment & Plan (12/01/2024 8:42 AM EDT): Monitoring particularly Assessment & Plan (11/30/2024 4:28 PM EDT): Monitoring particularly Assessment & Plan (11/29/2024 4:31 PM EDT): Monitoring particularly Assessment & Plan (11/28/2024 5:14 PM EDT): Monitoring particularly Assessment & Plan (11/27/2024 4:31 PM EDT): Monitoring particularly 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 Assessment & Plan (12/29/2024 5:10 PM EDT): Patient doing much better today was able to do 3 [place] [address] [place] CT scan on 12/27 performed shows stability and expected transformation No hemorrhage continue Eliquis Evaluated by neurosurgery, no acute surgical intervention S/p PCC [address] head 12/22 continued improvement Discussed with neurology, Eliquis resumed , Continue memantine and modafinil BP control per below Follow up with neurology 02/24 Assessment & Plan (12/28/2024 5:21 PM EDT): Patient was feeling more awake today CT scan on 12/27 performed shows stability and expected transformation No hemorrhage will resume Eliquis Evaluated by neurosurgery, no acute surgical intervention S/p PCC 2000 units Repeat CT head 12/22 continued improvement Discussed with neurology, Eliquis resumed yesterday, repeat CT head today after 2nd dose of Eliquis to determine if safe to continue, keep patient normotensive Continue memantine and modafinil BP control per below Follow up with neurology 02/24 Assessment & Plan (12/27/2024 3:52 PM EDT): Patient was feeling very lethargic today in the morning CT scan stat performed shows stability and expected transformation No hemorrhage will resume Eliquis Evaluated by neurosurgery, no acute surgical intervention S/p PCC [address] head 12/22 continued improvement Discussed with neurology, Eliquis resumed yesterday, repeat CT head today after 2nd dose of Eliquis to determine if safe to continue, keep patient normotensive Continue memantine and modafinil BP control per below Follow up with neurology 02/24 Assessment & Plan (12/26/2024 4:59 PM EDT): Clinically improving no new complaints tolerating PT OT Clinically improving continue PT/OT /speech under PMR guide patient is in a good mood today CT head 11/11 with left thalamic intraparenchymal hematoma measuring 2.3 x 1.9 x 2.7 cm with extension into the left lateral ventricle with mild associated localized mass effect though no significant midline shift or hydrocephalus CTA head and neck without additional findings from above Some increased IVH on initial repeat CT head but stable subsequently x2 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 Evaluated by neurosurgery, no acute surgical intervention S/p PCC [address] head 12/22 continued improvement Discussed with neurology, Isamarquis resumed yesterday, repeat CT head today after 2nd dose of Eliquis to determine if safe to continue, keep patient normotensive Continue memantine and modafinil BP control per below Follow up with neurology 02/24 Assessment & Plan (12/25/2024 2:38 PM EDT): Clinically improving no new complaints tolerating PT OT Clinically improving continue PT/OT /speech under PMR guide patient is in a good mood today CT head 11/11 with left thalamic intraparenchymal hematoma measuring 2.3 x 1.9 x 2.7 cm with extension into the left lateral ventricle with mild associated localized mass effect though no significant midline shift or hydrocephalus CTA head and neck without additional findings from above Some increased IVH on initial repeat CT head but stable subsequently x2 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 Evaluated by neurosurgery, no acute surgical intervention S/p PCC [address] head 12/22 continued improvement Discussed with neurology, Isamarqujesusita resumed yesterday, repeat CT head today after 2nd dose of Eliquis to determine if safe to continue, keep patient normotensive Continue memantine and modafinil BP control per below Follow up with neurology 02/24 Assessment & Plan (12/24/2024 12:56 PM EDT): Clinically improving no new complaints very happy with improvement of movement Clinically improving continue PT/OT /speech under PMR guide patient is in a good mood today CT head 11/11 with left thalamic intraparenchymal hematoma measuring 2.3 x 1.9 x 2.7 cm with extension into the left lateral ventricle with mild associated localized mass effect though no significant midline shift or hydrocephalus CTA head and neck without additional findings from above Some increased IVH on initial repeat CT head but stable subsequently x2 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 Evaluated by neurosurgery, no acute surgical intervention S/p PCC [address] head 12/22 continued improvement Discussed with neurology, Eliquis resumed yesterday, repeat CT head today after 2nd dose of Eliquis to determine if safe to continue, keep patient normotensive Continue memantine and modafinil BP control per below Follow up with neurology 02/24 Assessment & Plan (12/23/2024 4:32 PM EDT): Clinically improving no new complaints very happy with improvement of movement Clinically improving continue PT/OT /speech under PMR guide patient is in a good mood today CT head 11/11 with left thalamic intraparenchymal hematoma measuring 2.3 x 1.9 x 2.7 cm with extension into the left lateral ventricle with mild associated localized mass effect though no significant midline shift or hydrocephalus CTA head and neck without additional findings from above Some increased IVH on initial repeat CT head but stable subsequently x2 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 Evaluated by neurosurgery, no acute surgical intervention S/p PCC 2000 units Eliquis currently on hold, repeat CT head performed showing continued improvement, reached back out to neurology to see if Eliquis may be resumed Addendum - discussed with neurology, start Eliquis x2 doses followed by repeat CT head Continue memantine and modafinil BP control per below Follow up with neurology 02/24 Assessment & Plan (12/22/2024 12:30 PM EDT): Clinically improving no new complaints very happy with improvement of movement Clinically improving continue PT/OT /speech under PMR guide patient is in a good mood today CT head 11/11 with left thalamic intraparenchymal hematoma measuring 2.3 x 1.9 x 2.7 cm with extension into the left lateral ventricle with mild associated localized mass effect though no significant midline shift or hydrocephalus CTA head and neck without additional findings from above Some increased IVH on initial repeat CT head but stable subsequently x2 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 Evaluated by neurosurgery, no acute surgical intervention S/p PCC 2000 units Eliquis currently on hold for at least 1 month, will need repeat CT head prior to resuming around 12/23, will reach out to neurology at that time to see if CT from 12/02 is sufficient Continue memantine and modafinil BP control per below Follow up with neurology 02/24 Assessment & Plan (12/21/2024 1:46 PM EDT): Clinically improving no new complaints very happy with improvement of movement Clinically improving continue PT/OT /speech under PMR guide patient is in a good mood today CT head 11/11 with left thalamic intraparenchymal hematoma measuring 2.3 x 1.9 x 2.7 cm with extension into the left lateral ventricle with mild associated localized mass effect though no significant midline shift or hydrocephalus CTA head and neck without additional findings from above Some increased IVH on initial repeat CT head but stable subsequently x2 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 Evaluated by neurosurgery, no acute surgical intervention S/p PCC 2000 units Eliquis currently on hold for at least 1 month, will need repeat CT head prior to resuming around 12/23, will reach out to neurology at that time to see if CT from 12/02 is sufficient Continue memantine and modafinil BP control per below Follow up with neurology 02/24 Assessment & Plan (12/20/2024 11:13 AM EDT): Clinically improving no new complaints very happy with improvement of movement Clinically improving continue PT/OT /speech under PMR guide patient is in a good mood today CT head 11/11 with left thalamic intraparenchymal hematoma measuring 2.3 x 1.9 x 2.7 cm with extension into the left lateral ventricle with mild associated localized mass effect though no significant midline shift or hydrocephalus CTA head and neck without additional findings from above Some increased IVH on initial repeat CT head but stable subsequently x2 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 Evaluated by neurosurgery, no acute surgical intervention S/p PCC 2000 units Eliquis currently on hold for at least 1 month, will need repeat CT head prior to resuming around 12/23, PM&R reached out to neurology regarding this as he is planned for discharge in the next few days Continue memantine and modafinil BP control per below Follow up with neurology 02/24 Assessment & Plan (12/19/2024 5:10 PM EDT): Clinically improving no new complaints very happy with improvement of movement Clinically improving continue PT/OT /speech under PMR guide patient is in a good mood today CT head 11/11 with left thalamic intraparenchymal hematoma measuring 2.3 x 1.9 x 2.7 cm with extension into the left lateral ventricle with mild associated localized mass effect though no significant midline shift or hydrocephalus CTA head and neck without additional findings from above Some increased IVH on initial repeat CT head but stable subsequently x2 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 Evaluated by neurosurgery, no acute surgical intervention S/p PCC 2000 units Eliquis currently on hold for at least 1 month, will need repeat CT head prior to resuming around 12/23, PM&R reached out to neurology regarding this as he is planned for discharge in the next few days Continue memantine and modafinil BP control per below Follow up with neurology 02/24 Assessment & Plan (12/18/2024 5:09 PM EDT): Clinically improving no new complaints very happy with improvement of movement Clinically improving continue PT/OT /speech under PMR guide patient is in a good mood today CT head 11/11 with left thalamic intraparenchymal hematoma measuring 2.3 x 1.9 x 2.7 cm with extension into the left lateral ventricle with mild associated localized mass effect though no significant midline shift or hydrocephalus CTA head and neck without additional findings from above Some increased IVH on initial repeat CT head but stable subsequently x2 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 Evaluated by neurosurgery, no acute surgical intervention S/p PCC 2000 units Eliquis currently on hold for at least 1 month, will need repeat CT head prior to resuming around 12/23, PM&R reached out to neurology regarding this as he is planned for discharge in the next few days Continue memantine and modafinil BP control per below Follow up with neurology 02/24 Assessment & Plan (12/17/2024 2:16 PM EDT): Clinically improving no new complaints very happy with improvement of movement Clinically improving continue PT/OT /speech under PMR guide patient is in a good mood today CT head 11/11 with left thalamic intraparenchymal hematoma measuring 2.3 x 1.9 x 2.7 cm with extension into the left lateral ventricle with mild associated localized mass effect though no significant midline shift or hydrocephalus CTA head and neck without additional findings from above Some increased IVH on initial repeat CT head but stable subsequently x2 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 Evaluated by neurosurgery, no acute surgical intervention S/p PCC 2000 units Eliquis currently on hold for at least 1 month, will need repeat CT head prior to resuming around 12/23 Continue memantine and modafinil BP control per below Follow up with neurology 02/24 Assessment & Plan (12/16/2024 4:50 PM EDT): Clinically improving no new complaints very happy with improvement of movement Clinically improving continue PT/OT /speech under PMR guide patient is in a good mood today CT head 11/11 with left thalamic intraparenchymal hematoma measuring 2.3 x 1.9 x 2.7 cm with extension into the left lateral ventricle with mild associated localized mass effect though no significant midline shift or hydrocephalus CTA head and neck without additional findings from above Some increased IVH on initial repeat CT head but stable subsequently x2 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 Evaluated by neurosurgery, no acute surgical intervention S/p PCC 2000 units Eliquis currently on hold for at least 1 month, will need repeat CT head prior to resuming around 12/23 Continue memantine and modafinil BP control per below Follow up with neurology 02/24 Assessment & Plan (12/14/2024 4:27 PM EDT): No new complaints very happy with improvement of movement Clinically improving continue PT/OT /speech under PMR guide patient is in a good mood today CT head 11/11 with left thalamic intraparenchymal hematoma measuring 2.3 x 1.9 x 2.7 cm with extension into the left lateral ventricle with mild associated localized mass effect though no significant midline shift or hydrocephalus CTA head and neck without additional findings from above Some increased IVH on initial repeat CT head but stable subsequently x2 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 Evaluated by neurosurgery, no acute surgical intervention S/p PCC 2000 units Eliquis currently on hold for at least 1 month, will need repeat CT head prior to resuming around 12/23 Continue memantine and modafinil BP control per below Follow up with neurology 02/24 Assessment & Plan (12/14/2024 8:31 AM EDT): Stable Clinically improving continue PT/OT /speech under PMR guide patient is in a good mood today CT head 11/11 with left thalamic intraparenchymal hematoma measuring 2.3 x 1.9 x 2.7 cm with extension into the left lateral ventricle with mild associated localized mass effect though no significant midline shift or hydrocephalus CTA head and neck without additional findings from above Some increased IVH on initial repeat CT head but stable subsequently x2 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 Evaluated by neurosurgery, no acute surgical intervention S/p PCC 2000 units Eliquis currently on hold for at least 1 month, will need repeat CT head prior to resuming around 12/23 Continue memantine and modafinil BP control per below Follow up with neurology 02/24 Assessment & Plan (12/12/2024 5:05 PM EDT): Clinically improving continue PT/OT /speech under PMR guide patient is in a good mood today CT head 11/11 with left thalamic intraparenchymal hematoma measuring 2.3 x 1.9 x 2.7 cm with extension into the left lateral ventricle with mild associated localized mass effect though no significant midline shift or hydrocephalus CTA head and neck without additional findings from above Some increased IVH on initial repeat CT head but stable subsequently x2 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 Evaluated by neurosurgery, no acute surgical intervention S/p PCC 2000 units Eliquis currently on hold for at least 1 month, will need repeat CT head prior to resuming around 12/23 Continue memantine and modafinil BP control per below Follow up with neurology 02/24 Assessment & Plan (12/11/2024 5:12 PM EDT): Clinically improving continue PT/OT /speech under PMR guide CT head 11/11 with left thalamic intraparenchymal hematoma measuring 2.3 x 1.9 x 2.7 cm with extension into the left lateral ventricle with mild associated localized mass effect though no significant midline shift or hydrocephalus CTA head and neck without additional findings from above Some increased IVH on initial repeat CT head but stable subsequently x2 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 Evaluated by neurosurgery, no acute surgical intervention S/p PCC 2000 units Eliquis currently on hold for at least 1 month, will need repeat CT head prior to resuming around 12/23 Continue memantine and modafinil BP control per below Follow up with neurology 02/24 Assessment & Plan (12/10/2024 1:57 PM EDT): CT head 11/11 with left thalamic intraparenchymal hematoma measuring 2.3 x 1.9 x 2.7 cm with extension into the left lateral ventricle with mild associated localized mass effect though no significant midline shift or hydrocephalus CTA head and neck without additional findings from above Some increased IVH on initial repeat CT head but stable subsequently x2 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 Evaluated by neurosurgery, no acute surgical intervention S/p PCC 2000 units Eliquis currently on hold for at least 1 month, will need repeat CT head prior to resuming around 6 Continue memantine and modafinil BP control per below Follow up with neurology 02/24 Assessment & Plan (12/10/2024 8:06 AM EDT): CT head 11/11 with left thalamic intraparenchymal hematoma measuring 2.3 x 1.9 x 2.7 cm with extension into the left lateral ventricle with mild associated localized mass effect though no significant midline shift or hydrocephalus CTA head and neck without additional findings from above Some increased IVH on initial repeat CT head but stable subsequently x2 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 Evaluated by neurosurgery, no acute surgical intervention S/p PCC 2000 units Eliquis currently on hold for at least 1 month, will need repeat CT head prior to resuming around 6 Continue memantine and modafinil BP control per below Follow up with neurology 02/24 Assessment & Plan (12/08/2024 2:50 PM EDT): CT head 11/11 with left thalamic intraparenchymal hematoma measuring 2.3 x 1.9 x 2.7 cm with extension into the left lateral ventricle with mild associated localized mass effect though no significant midline shift or hydrocephalus CTA head and neck without additional findings from above Some increased IVH on initial repeat CT head but stable subsequently x2 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 Evaluated by neurosurgery, no acute surgical intervention S/p PCC 2000 units Eliquis currently on hold for at least 1 month, will need repeat CT head prior to resuming around 6 Continue memantine and modafinil BP control per below Follow up with neurology 8 Assessment & Plan (12/07/2024 12:04 PM EDT): CT head 4 with left thalamic intraparenchymal hematoma measuring 2.3 x 1.9 x 2.7 cm with extension into the left lateral ventricle with mild associated localized mass effect though no significant midline shift or hydrocephalus CTA head and neck without additional findings from above Some increased IVH on initial repeat CT head but stable subsequently x2 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 Evaluated by neurosurgery, no acute surgical intervention S/p PCC 2000 units Eliquis currently on hold for at least 1 month, will need repeat CT head prior to resuming Continue memantine and modafinil BP control per below Follow up with neurology 02/24 Assessment & Plan (12/06/2024 12:02 PM EDT): CT head 11/11 with left thalamic intraparenchymal hematoma measuring 2.3 x 1.9 x 2.7 cm with extension into the left lateral ventricle with mild associated localized mass effect though no significant midline shift or hydrocephalus CTA head and neck without additional findings from above Some increased IVH on initial repeat CT head but stable subsequently x2 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 Evaluated by neurosurgery, no acute surgical intervention S/p PCC 2000 units Eliquis currently on hold for at least 1 month, will need repeat CT head prior to resuming Continue memantine and modafinil BP control per below Follow up with neurology 02/24 Assessment & Plan (12/05/2024 5:00 PM EDT): CT head 11/11 with left thalamic intraparenchymal hematoma measuring 2.3 x 1.9 x 2.7 cm with extension into the left lateral ventricle with mild associated localized mass effect though no significant midline shift or hydrocephalus CTA head and neck without additional findings from above Some increased IVH on initial repeat CT head but stable subsequently x2 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 Evaluated by neurosurgery, no acute surgical intervention S/p PCC 2000 units Eliquis currently on hold for at least 1 month, will need repeat CT head prior to resuming Continue memantine and modafinil BP control per below Follow up with neurology 02/24 Assessment & Plan (12/04/2024 9:06 PM EDT): CT head 11/11 with left thalamic intraparenchymal hematoma measuring 2.3 x 1.9 x 2.7 cm with extension into the left lateral ventricle with mild associated localized mass effect though no significant midline shift or hydrocephalus CTA head and neck without additional findings from above Some increased IVH on initial repeat CT head but stable subsequently x2 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 Evaluated by neurosurgery, no acute surgical intervention S/p PCC 2000 units Eliquis currently on hold for at least 1 month, will need repeat CT head prior to resuming Continue memantine and modafinil BP control per below Follow up with neurology 02/24 Assessment & Plan (12/03/2024 6:17 PM EDT): Slowly improving due to increasing weakness weakness now able to move right upper extremity and right lower extremity stat head CT performed today 12/02 showed decreased subdural hematoma compared with CT scan 11/11 showed intraparenchymal hematoma 2.3 x 1.9 x 2.7 cm with mild mass effect seen by neurosurgery not recommending acute intervention we will continue monitoring neurochecks so far stable will consider repeating images if changes in neurostatus continue PT OT under PM&R guidance denies new complaints Rising leukocytosis and lethargy concern for infection blood work shows high lactic 3.0 will give IV fluids requested infectious consultation chest x-ray UA start empiric antibiotics request stepdown evaluation will decide if no improvement will repeat blood work blood cultures Assessment & Plan (12/02/2024 12:29 PM EDT): Slowly improving due to increasing weakness weakness now able to move right upper extremity and right lower extremity stat head CT performed today 12/02 showed decreased subdural hematoma compared with CT scan 11/11 showed intraparenchymal hematoma 2.3 x 1.9 x 2.7 cm with mild mass effect seen by neurosurgery not recommending acute intervention we will continue monitoring neurochecks so far stable will consider repeating images if changes in neurostatus continue PT OT under PM&R guidance denies new complaints Assessment & Plan (12/01/2024 1:58 PM EDT): Slowly improving right-sided weakness now able to move right upper extremity and right lower extremity only CT scan 11/11 showed intraparenchymal hematoma 2.3 x 1.9 x 2.7 cm with mild mass effect seen by neurosurgery not recommending acute intervention we will continue monitoring neurochecks so far stable will consider repeating images if changes in neurostatus continue PT OT under PM&R guidance denies new complaints Assessment & Plan (11/30/2024 4:29 PM EDT): Slowly improving still has residual weakness right-sided CT scan 11/11 showed intraparenchymal hematoma 2.3 x 1.9 x 2.7 cm with mild mass effect seen by neurosurgery not recommending acute intervention we will continue monitoring neurochecks so far stable will consider repeating images if changes in neurostatus continue PT OT under PM&R guidance denies new complaints Assessment & Plan (11/29/2024 4:31 PM EDT): Slowly improving still has residual weakness right-sided CT scan 11/11 showed intraparenchymal hematoma 2.3 x 1.9 x 2.7 cm with mild mass effect seen by neurosurgery not recommending acute intervention we will continue monitoring neurochecks will consider repeating images if changes in neurostatus continue PT OT under PM&R guidance denies new complaints Assessment & Plan (11/28/2024 5:14 PM EDT): Slowly improving still has residual weakness right-sided CT scan 11/11 showed intraparenchymal hematoma 2.3 x 1.9 x 2.7 cm with mild mass effect seen by neurosurgery not recommending acute intervention we will continue monitoring neurochecks will consider repeating images if changes in neurostatus continue PT OT under PM&R guidance Assessment & Plan (11/27/2024 4:31 PM EDT): Slowly improving still has residual weakness right-sided CT scan 11/11 showed intraparenchymal hematoma 2.3 x 1.9 x 2.7 cm with mild mass effect seen by neurosurgery not recommending acute intervention we will continue monitoring neurochecks will consider repeating images if changes in neurostatus continue PT OT under PM&R guidance 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 Lumbar stenosis without neurogenic claudication 12/12/2023 Hypertension 12/08/2023 Assessment & Plan (12/29/2024 5:10 PM EDT): BP stable Currently holding amlodipine, and spironolactone Continue Toprol XL 50 mg qday Continue compression wear BP has been elevated SBP 150s during therapy the last couple days, will restart lisinopril 10 mg qday Assessment & Plan (12/28/2024 5:19 PM EDT): BP stable Currently holding amlodipine, and spironolactone Continue Toprol XL 50 mg qday Continue compression wear BP has been elevated SBP 150s during therapy the last couple days, will restart lisinopril 10 mg qday Assessment & Plan (12/27/2024 3:47 PM EDT): BP stable Currently holding amlodipine, and spironolactone Continue Toprol XL 50 mg qday Continue compression wear BP has been elevated SBP 150s during therapy the last couple days, will restart lisinopril 10 mg qday Assessment & Plan (12/26/2024 4:59 PM EDT): BP stable Currently holding amlodipine, and spironolactone Continue Toprol XL 50 mg qday Continue compression wear BP has been elevated SBP 150s during therapy the last couple days, will restart lisinopril 10 mg qday Assessment & Plan (12/25/2024 2:38 PM EDT): BP stable Currently holding amlodipine, and spironolactone Continue Toprol XL 50 mg qday Continue compression wear BP has been elevated SBP 150s during therapy the last couple days, will restart lisinopril 10 mg qday Assessment & Plan (12/24/2024 2:35 PM EDT): Has had episodes of orthostatic hypotension Currently holding amlodipine, and spironolactone Continue Toprol XL 50 mg qday Continue compression wear BP has been elevated SBP 150s during therapy the last couple days, will restart lisinopril 10 mg qday Assessment & Plan (12/23/2024 11:07 AM EDT): Has had episodes of orthostatic hypotension Currently holding amlodipine, spironolactone, lisinopril Continue Toprol XL 50 mg qday Continue compression wear BP grossly controlled, continue current regimen Assessment & Plan (12/22/2024 12:30 PM EDT): Has had episodes of orthostatic hypotension Currently holding amlodipine, spironolactone, lisinopril Continue Toprol XL 50 mg qday Continue compression wear BP with some mild elevations in the AM though overall controlled/stable, continue current regimen for now Assessment & Plan (12/21/2024 1:46 PM EDT): Has had episodes of orthostatic hypotension Currently holding amlodipine, spironolactone, lisinopril Continue Toprol XL 50 mg qday Continue compression wear BP mildly elevated on current regimen, continue to monitor for now given issues with orthostasis Assessment & Plan (12/20/2024 11:13 AM EDT): Has had episodes of orthostatic hypotension Currently holding amlodipine, spironolactone, lisinopril Continue Toprol XL 50 mg qday Continue compression wear BP remains controlled on current regimen, continue to monitor Assessment & Plan (12/19/2024 5:10 PM EDT): Has had episodes of orthostatic hypotension Currently holding amlodipine, spironolactone, lisinopril Continue Toprol XL 50 mg qday Continue compression wear Some mildly elevated BP with therapy today though remains grossly controlled, no changes to current regimen at this time, continue to monitor Assessment & Plan (12/18/2024 5:09 PM EDT): Has had episodes of orthostatic hypotension Currently holding amlodipine, spironolactone, lisinopril Continue Toprol XL 50 mg qday Continue compression wear Assessment & Plan (12/17/2024 2:16 PM EDT): Due to hypotension SBP 80s no symptom will hold aldactone and lisinopril Amlodipine on hold due to orthostatic hypotension Continue adjusting medications Continue compression wear Assessment & Plan (12/16/2024 4:50 PM EDT): Required nicardipine during acute hospitalization Previously on various antihypertensives, unclear which he was taking prior to presentation Currently on lisinopril 40 mg, Toprol XL 100 mg, and spironolactone 75 mg Reduce spironolactone to 50 mg and hold tomorrow's dose for exoskeleton training Amlodipine on hold due to orthostatic hypotension Continue compression wear Assessment & Plan (12/14/2024 8:35 AM EDT): Required nicardipine during acute hospitalization Previously on various antihypertensives, unclear which he was taking prior to presentation Currently on lisinopril 40 mg, Toprol XL 100 mg, and spironolactone 75 mg Reduce spironolactone to 50 mg and hold tomorrow's dose for exoskeleton training Amlodipine on hold due to orthostatic hypotension Continue compression wear Assessment & Plan (12/14/2024 8:31 AM EDT): Required nicardipine during acute hospitalization Previously on various antihypertensives, unclear which he was taking prior to presentation Currently on lisinopril 40 mg, Toprol XL 100 mg, and spironolactone 75 mg Reduce spironolactone to 50 mg and hold tomorrow's dose for exoskeleton training Amlodipine on hold due to orthostatic hypotension Continue compression wear Assessment & Plan (12/12/2024 5:05 PM EDT): Required nicardipine during acute hospitalization Previously on various antihypertensives, unclear which he was taking prior to presentation Currently on lisinopril 40 mg, Toprol XL 100 mg, and spironolactone 75 mg Reduce spironolactone to 50 mg and hold tomorrow's dose for exoskeleton training Amlodipine on hold due to orthostatic hypotension Continue compression wear Assessment & Plan (12/11/2024 5:12 PM EDT): Required nicardipine during acute hospitalization Previously on various antihypertensives, unclear which he was taking prior to presentation Currently on lisinopril 40 mg, Toprol XL 100 mg, and spironolactone 75 mg Reduce spironolactone to 50 mg and hold tomorrow's dose for exoskeleton training Amlodipine on hold due to orthostatic hypotension Continue compression wear Assessment & Plan (12/10/2024 1:57 PM EDT): Required nicardipine during acute hospitalization Previously on various antihypertensives, unclear which he was taking prior to presentation Currently on lisinopril 40 mg, Toprol XL 100 mg, and spironolactone 75 mg Reduce spironolactone to 50 mg and hold tomorrow's dose for exoskeleton training Amlodipine on hold due to orthostatic hypotension Continue compression wear Assessment & Plan (12/10/2024 8:06 AM EDT): Required nicardipine during acute hospitalization Previously on various antihypertensives, unclear which he was taking prior to presentation Currently on lisinopril 40 mg, Toprol XL 100 mg, spironolactone 75 mg, amlodipine 5 mg at bedtime Will hold amlodipine given symptoms of orthostasis with low-normal BP Continue compression wear Assessment & Plan (12/08/2024 2:50 PM EDT): Required nicardipine during acute hospitalization Previously on various antihypertensives, unclear which he was taking prior to presentation Currently on lisinopril 40 mg, Toprol XL 100 mg, spironolactone 75 mg, amlodipine 5 mg at bedtime Has had episodes of orthostatic hypotension Add compression wear Assessment & Plan (12/07/2024 12:04 PM EDT): Required nicardipine during acute hospitalization Previously on various antihypertensives, unclear which he was taking prior to presentation Currently on lisinopril 40 mg, Toprol XL 100 mg, spironolactone 75 mg, amlodipine 5 mg at bedtime Has had episodes of orthostatic hypotension Add compression wear Assessment & Plan (12/06/2024 12:02 PM EDT): Required nicardipine during acute hospitalization Previously on various antihypertensives, unclear which he was taking prior to presentation Currently on lisinopril 40 mg, Toprol XL 100 mg, spironolactone 75 mg, amlodipine 5 mg at bedtime Has had episodes of orthostatic hypotension requiring IV fluids today, will liberalize fluid restriction Assessment & Plan (12/05/2024 5:00 PM EDT): Required nicardipine during acute hospitalization Previously on various antihypertensives, unclear which he was taking prior to presentation Currently on lisinopril 40 mg, Toprol XL 100 mg, spironolactone 75 mg, amlodipine 5 mg at bedtime Has had episodes of orthostatic hypotension requiring IV fluids today, will liberalize fluid restriction Assessment & Plan (12/04/2024 9:06 PM EDT): Required nicardipine during acute hospitalization Previously on various antihypertensives, unclear which he was taking prior to presentation Currently on lisinopril 40 mg, Toprol XL 100 mg, spironolactone 75 mg, amlodipine 5 mg at bedtime Assessment & Plan (12/03/2024 6:17 PM EDT): Due to low blood pressure was reduced Norvasc 5 mg Blood pressure within acceptable range continue current regimen listed below Assessment & Plan (12/02/2024 12:29 PM EDT): Due to low blood pressure was reduced Norvasc 5 mg Blood pressure within acceptable range continue current regimen listed below Assessment & Plan (12/01/2024 8:42 AM EDT): Due to low blood pressure reduced Norvasc 5 mg Blood pressure within acceptable range continue current regimen listed below Assessment & Plan (11/30/2024 4:28 PM EDT): Due to low blood pressure reduced Norvasc 5 mg Blood pressure within acceptable range continue current regimen listed below Assessment & Plan (11/29/2024 4:31 PM EDT): Due to low blood pressure reduced Norvasc 5 mg Blood pressure within acceptable range continue current regimen listed below Assessment & Plan (11/28/2024 5:17 PM EDT): Due to low blood pressure will will reduce Norvasc 5 mg Blood pressure within acceptable range continue current regimen listed below Assessment & Plan (11/27/2024 4:31 PM EDT): Blood pressure within acceptable range continue current regimen listed below Atrial fibrillation 12/08/2023 Assessment & Plan (12/29/2024 5:10 PM EDT): Toprol XL per above, currently rate controlled Eliquis on hold per above Assessment & Plan (12/28/2024 5:19 PM EDT): Toprol XL per above, currently rate controlled Eliquis on hold per above Assessment & Plan (12/27/2024 3:47 PM EDT): Toprol XL per above, currently rate controlled Eliquis on hold per above Assessment & Plan (12/26/2024 4:59 PM EDT): Toprol XL per above, currently rate controlled Eliquis on hold per above Assessment & Plan (12/25/2024 2:38 PM EDT): Toprol XL per above, currently rate controlled Eliquis on hold per above Assessment & Plan (12/24/2024 12:56 PM EDT): Toprol XL per above, currently rate controlled Eliquis on hold per above Assessment & Plan (12/23/2024 11:07 AM EDT): Toprol XL per above, currently rate controlled Eliquis on hold per above Assessment & Plan (12/22/2024 12:30 PM EDT): Toprol XL per above, currently rate controlled Eliquis on hold per above Assessment & Plan (12/21/2024 1:46 PM EDT): Toprol XL per above, currently rate controlled Eliquis on hold per above Assessment & Plan (12/20/2024 11:13 AM EDT): Toprol XL per above, currently rate controlled Eliquis on hold per above Assessment & Plan (12/19/2024 5:10 PM EDT): Toprol XL per above, currently rate controlled Eliquis on hold per above Assessment & Plan (12/18/2024 5:09 PM EDT): Toprol XL per above, currently rate controlled Eliquis on hold per above Assessment & Plan (12/17/2024 2:16 PM EDT): Toprol XL per above, currently rate controlled Eliquis on held per above Assessment & Plan (12/16/2024 4:50 PM EDT): Toprol XL per above, currently rate controlled Eliquis on held per above Assessment & Plan (12/14/2024 8:35 AM EDT): Toprol XL per above, currently rate controlled Eliquis on held per above Assessment & Plan (12/14/2024 8:31 AM EDT): Toprol XL per above, currently rate controlled Eliquis on held per above Assessment & Plan (12/12/2024 5:05 PM EDT): Toprol XL per above, currently rate controlled Eliquis on held per above Assessment & Plan (12/11/2024 5:12 PM EDT): Toprol XL per above, currently rate controlled Eliquis on held per above Assessment & Plan (12/10/2024 1:57 PM EDT): Toprol XL per above, currently rate controlled Eliquis on held per above Assessment & Plan (12/10/2024 8:06 AM EDT): Toprol XL per above, currently rate controlled Eliquis on held per above Assessment & Plan (12/08/2024 2:50 PM EDT): Toprol XL per above, currently rate controlled Eliquis on held per above Assessment & Plan (12/07/2024 12:04 PM EDT): Toprol XL per above, currently rate controlled Eliquis on held per above Assessment & Plan (12/06/2024 12:02 PM EDT): Toprol XL per above, currently rate controlled Eliquis on held per above Assessment & Plan (12/05/2024 5:00 PM EDT): Toprol XL per above, currently rate controlled Eliquis on held per above Assessment & Plan (12/04/2024 9:06 PM EDT): Toprol XL per above, currently rate controlled Eliquis on held per above Assessment & Plan (12/03/2024 6:17 PM EDT): Rate controlled within acceptable range continue Toprol hold anticoagulation due to recent anticoagulated bleeding Assessment & Plan (12/02/2024 12:29 PM EDT): Rate controlled within acceptable range continue Toprol hold anticoagulation due to recent anticoagulated bleeding Assessment & Plan (12/01/2024 8:42 AM EDT): Rate controlled within acceptable range continue Toprol hold anticoagulation due to recent anticoagulated bleeding Assessment & Plan (11/30/2024 4:28 PM EDT): Rate controlled within acceptable range continue Toprol hold anticoagulation due to recent anticoagulated bleeding Assessment & Plan (11/29/2024 4:31 PM EDT): Rate controlled within acceptable range continue Toprol hold anticoagulation due to recent anticoagulated bleeding Assessment & Plan (11/28/2024 5:14 PM EDT): Rate controlled within acceptable range continue Toprol hold anticoagulation due to recent anticoagulated bleeding Assessment & Plan (11/27/2024 4:31 PM EDT): Rate controlled within acceptable range continue Toprol hold anticoagulation due to recent anticoagulated bleeding Vitamin D deficiency 12/08/2023 S/P lumbar fusion 12/06/2023 Normocytic anemia 11/29/2023 Hyponatremia 11/29/2023 Assessment & Plan (12/29/2024 5:10 PM EDT): Suspect SIADH similar to previous Required salt tabs during acute hospitalization Fluid restriction 1800 mL Hyponatremia improving 133 Spironolactone on hold per above, replete K prn with goal >4 and Mg >2 Mg 1.6 610, repleting Assessment & Plan (12/28/2024 5:19 PM EDT): Suspect SIADH similar to previous Required salt tabs during acute hospitalization Fluid restriction 1800 mL Monitoring off salt tabs for now sodium today 130 he appears dry ordered gentle IV fluids Spironolactone on hold per above, replete K prn with goal >4 and Mg >2 Mg 1.6 10, repleting Assessment & Plan (12/27/2024 3:53 PM EDT): Suspect SIADH similar to previous Required salt tabs during acute hospitalization Fluid restriction 1800 mL Monitoring off salt tabs for now sodium today 130 he appears dry ordered gentle IV fluids Spironolactone on hold per above, replete K prn with goal >4 and Mg >2 Mg 1.6 10, repleting Assessment & Plan (12/26/2024 4:59 PM EDT): Suspect SIADH similar to previous Required salt tabs during acute hospitalization Fluid restriction 1800 mL Monitoring off salt tabs for now Spironolactone on hold per above, replete K prn with goal >4 and Mg >2 Mg 1.6 6/10, repleting Assessment & Plan (12/25/2024 2:38 PM EDT): Suspect SIADH similar to previous Required salt tabs during acute hospitalization Fluid restriction 1800 mL Monitoring off salt tabs for now Spironolactone on hold per above, replete K prn with goal >4 and Mg >2 Mg 1.6 12/24, repleting Assessment & Plan (12/24/2024 12:56 PM EDT): Suspect SIADH similar to previous Required salt tabs during acute hospitalization Fluid restriction 1800 mL Monitoring off salt tabs for now Spironolactone on hold per above, replete K prn with goal >4 and Mg >2 Mg 1.6 12/24, repleting Assessment & Plan (12/23/2024 11:07 AM EDT): Suspect SIADH similar to previous Required salt tabs during acute hospitalization Fluid restriction 1800 mL Monitoring off salt tabs for now Spironolactone on hold per above, replete K prn with goal >4 and Mg >2 K 4.3, Mg 1.6 today, replete magnesium x4 doses Assessment & Plan (12/22/2024 12:30 PM EDT): Suspect SIADH similar to previous Required salt tabs during acute hospitalization Fluid restriction 1800 mL Monitoring off salt tabs for now Spironolactone on hold per above, replete K prn with goal >4 and Mg >2 K and mg with weekly labs tomorrow Assessment & Plan (12/21/2024 1:46 PM EDT): Suspect SIADH similar to previous Required salt tabs during acute hospitalization Fluid restriction 1800 mL Monitoring off salt tabs for now Spironolactone on hold per above, replete K prn with goal >4 and Mg >2 K and mg mildly low today, replete Assessment & Plan (12/20/2024 11:13 AM EDT): Suspect SIADH similar to previous Required salt tabs during acute hospitalization Fluid restriction 1800 mL Monitoring off salt tabs for now Spironolactone on hold per above, replete K prn with goal >4 and Mg >2 Check K tomorrow as he has been of spironolactone since 12/17 Assessment & Plan (12/19/2024 5:10 PM EDT): Suspect SIADH similar to previous Required salt tabs during acute hospitalization Fluid restriction 1800 mL Monitoring off salt tabs for now Spironolactone on hold per above, replete K prn with goal >4 and Mg >2 Assessment & Plan (12/18/2024 5:09 PM EDT): Suspect SIADH similar to previous Required salt tabs during acute hospitalization Fluid restriction 1800 mL Monitoring off salt tabs for now Spironolactone on hold per above, replete K prn with goal >4 and Mg >2 Assessment & Plan (12/17/2024 2:16 PM EDT): . Blood work showed improved electrolytes Suspect SIADH similar to previous Required salt tabs during acute hospitalization Fluid restriction 1800 mL Monitoring off salt tabs for now Spironolactone per above, replete K prn with goal >4 and Mg >2 Continue monitoring labs Assessment & Plan (12/16/2024 4:50 PM EDT): . Blood work showed improved electrolytes Suspect SIADH similar to previous Required salt tabs during acute hospitalization Fluid restriction 1800 mL Monitoring off salt tabs for now Spironolactone per above, replete K prn with goal >4 and Mg >2 Continue monitoring labs Assessment & Plan (12/14/2024 8:35 AM EDT): Suspect SIADH similar to previous Required salt tabs during acute hospitalization Fluid restriction 1800 mL Monitoring off salt tabs for now Spironolactone per above, replete K prn with goal >4 and Mg >2 Continue monitoring labs Assessment & Plan (12/14/2024 8:31 AM EDT): Suspect SIADH similar to previous Required salt tabs during acute hospitalization Fluid restriction 1800 mL Monitoring off salt tabs for now Spironolactone per above, replete K prn with goal >4 and Mg >2 Continue monitoring labs Assessment & Plan (12/12/2024 5:05 PM EDT): Suspect SIADH similar to previous Required salt tabs during acute hospitalization Fluid restriction 1800 mL Monitoring off salt tabs for now Spironolactone per above, replete K prn with goal >4 and Mg >2 Continue monitoring labs Assessment & Plan (12/11/2024 5:12 PM EDT): Suspect SIADH similar to previous Required salt tabs during acute hospitalization Fluid restriction 1800 mL Monitoring off salt tabs for now Spironolactone per above, replete K prn with goal >4 and Mg >2 Assessment & Plan (12/10/2024 1:57 PM EDT): Suspect SIADH similar to previous Required salt tabs during acute hospitalization Fluid restriction 1800 mL Monitoring off salt tabs for now Spironolactone per above, replete K prn with goal >4 and Mg >2 Assessment & Plan (12/10/2024 8:06 AM EDT): Suspect SIADH similar to previous Required salt tabs during acute hospitalization Fluid restriction 1800 mL Monitoring off salt tabs for now Spironolactone per above, replete K prn with goal >4 and Mg >2 Assessment & Plan (12/08/2024 2:50 PM EDT): Suspect SIADH similar to previous Required salt tabs during acute hospitalization Fluid restriction 1800 mL Monitoring off salt tabs for now Spironolactone per above, replete K prn with goal >4 and Mg >2 Assessment & Plan (12/07/2024 12:04 PM EDT): Suspect SIADH similar to previous Required salt tabs during acute hospitalization Fluid restriction 1800 mL Monitoring off salt tabs for now Spironolactone per above, replete K prn with goal >4 and Mg >2 Assessment & Plan (12/06/2024 12:02 PM EDT): Suspect SIADH similar to previous Required salt tabs during acute hospitalization Fluid restriction 1800 mL Monitoring off salt tabs for now Spironolactone per above, replete K prn with goal >4 and Mg >2 Assessment & Plan (12/05/2024 5:00 PM EDT): Suspect SIADH similar to previous Required salt tabs during acute hospitalization Fluid restriction 1500 mL, increase to 1800 mL Monitoring off salt tabs for now Spironolactone per above, replete K prn with goal >4 and Mg >2 Assessment & Plan (12/04/2024 9:06 PM EDT): Suspect SIADH similar to previous Required salt tabs during acute hospitalization Fluid restriction 1500 mL Monitoring off salt tabs for now Spironolactone per above, replete K prn with goal >4 and Mg >2 Assessment & Plan (12/03/2024 6:17 PM EDT): Improving monitor labs possible SIADH sodium 132 Assessment & Plan (12/02/2024 12:29 PM EDT): Improving monitor labs possible SIADH sodium 130 will encourage fluid restriction improved further will consider nephrology of salt tab Assessment & Plan (12/01/2024 8:42 AM EDT): Improving monitor labs possible SIADH sodium 134 Assessment & Plan (11/30/2024 4:28 PM EDT): Improving monitor labs possible SIADH sodium 134 Assessment & Plan (11/29/2024 4:31 PM EDT): Improving monitor labs possible SIADH sodium 134 Assessment & Plan (11/28/2024 5:17 PM EDT): Monitor labs possible SIADH sodium 134 Assessment & Plan (11/27/2024 4:31 PM EDT): Monitor labs possible SIADH sodium today 133 Spinal instability of lumbar region 11/22/2023 Abscess in epidural space of lumbar spine 2023 Fracture dislocation of lumbar spine 11/22/2023 Osteomyelitis 11/18/2023 Back pain 11/18/2023 Lumbar burst fracture 11/18/2023 Resolved Problems Problem Noted Date Diagnosed Date Resolved Date Leukocytosis 12/04/2024 12/05/2024 Assessment & Plan (12/18/2024 5:09 PM EDT): Improving normalized Lactic acid 3.1->2.6 with fluids, metformin discontinued Afebrile CXR and UA unremarkable Blood cultures 5/20 negative Fluvid negative ID following Monitoring off antibiotics Assessment & Plan (12/17/2024 2:16 PM EDT): Improving normalized Lactic acid 3.1->2.6 with fluids, metformin discontinued Afebrile CXR and UA unremarkable Blood cultures 5/20 negative Fluvid negative ID following Monitoring off antibiotics Assessment & Plan (12/16/2024 4:50 PM EDT): Improving Lactic acid 3.1->2.6 with fluids, metformin discontinued Afebrile CXR and UA unremarkable Blood cultures 5/20 negative Fluvid negative ID following Monitoring off antibiotics Assessment & Plan (12/14/2024 8:35 AM EDT): Improving Lactic acid 3.1->2.6 with fluids, metformin discontinued Afebrile CXR and UA unremarkable Blood cultures 5/20 negative Fluvid negative ID following Monitoring off antibiotics Assessment & Plan (12/14/2024 8:31 AM EDT): Improving Lactic acid 3.1->2.6 with fluids, metformin discontinued Afebrile CXR and UA unremarkable Blood cultures 5/20 negative Fluvid negative ID following Monitoring off antibiotics Assessment & Plan (12/12/2024 5:05 PM EDT): Improving Lactic acid 3.1->2.6 with fluids, metformin discontinued Afebrile CXR and UA unremarkable Blood cultures 5/20 negative Fluvid negative ID following Monitoring off antibiotics Assessment & Plan (12/11/2024 5:12 PM EDT): Improving Lactic acid 3.1->2.6 with fluids, metformin discontinued Afebrile CXR and UA unremarkable Blood cultures 5/20 negative Fluvid negative ID following Monitoring off antibiotics Assessment & Plan (12/10/2024 1:57 PM EDT): Lactic acid 3.1->2.6 with fluids, metformin discontinued Afebrile CXR and UA unremarkable Blood cultures 5/20 negative Fluvid negative ID following Monitoring off antibiotics Assessment & Plan (12/10/2024 8:06 AM EDT): Lactic acid 3.1->2.6 with fluids, metformin discontinued Afebrile CXR and UA unremarkable Blood cultures 5/20 NTD Fluvid negative ID following Monitor off antibiotics Assessment & Plan (12/08/2024 2:50 PM EDT): Lactic acid 3.1->2.6 with fluids, metformin discontinued Afebrile CXR and UA unremarkable Blood cultures 5/20 NTD Fluvid negative ID following Monitor off antibiotics Assessment & Plan (12/07/2024 12:04 PM EDT): Lactic acid 3.1->2.6 with fluids, metformin discontinued Afebrile CXR and UA unremarkable Blood cultures 5/20 NTD Fluvid negative ID following Monitor off antibiotics Assessment & Plan (12/06/2024 12:02 PM EDT): Lactic acid 3.1->2.6 with fluids, metformin discontinued Afebrile CXR and UA unremarkable Blood cultures 5/20 NTD Fluvid negative ID following Monitor off antibiotics Assessment & Plan (12/05/2024 5:00 PM EDT): Lactic acid 3.1->2.6 with fluids, metformin discontinued Afebrile CXR and UA unremarkable Blood cultures 5/20 NTD Fluvid negative ID following Monitor off antibiotics Assessment & Plan (12/04/2024 9:06 PM EDT): Lactic acid 3.1->2.6 with fluids, metformin discontinued Afebrile CXR and UA unremarkable Blood cultures 5/20 NTD Fluvid negative ID consulted Monitor off antibiotics Bacteremia 11/29/2023 12/06/2023 Thrombocytopenia 11/29/2023 12/06/2023 Hypophosphatemia 11/29/2023 12/06/2023 Encephalopathy acute 11/19/2023 024 Encounters Date Type Department Care Team Description 03/19/2025 Scanned Document [facility]IC[facility] & [facility] [place] [address] [place] [address] [place] [phone] Caty Kelsey MA from Last 3 Months Social History Tobacco Use Types Packs/Day Years Used Date Smoking Tobacco: Never Smokeless Tobacco: Never Tobacco Cessation:Counseling Given: Not Answered Alcohol Use Standard Drinks/Week Comments Yes 0 (1 standard drink = 0.6 oz pur e alcohol) social [facility] Utilities Answer Date Recorded In the [...] in a fpc (including now)? No 11/19/2023 Housing Stability Vital Sign Answer Jimmie e Recorded In the last 12 months, was t here a time when you were not able to pay the mortgage or rent on time? No 11/12/2024 In the past 12 months, how m any times have you moved where you were living? 0 11/12/2024 At any time in the past 12 m [facility], were you homeless or living in a fpc (including now)? No 11/12/2024 Sex and Gender Information Value Date Recorded Sex Assigned at Male 11/18/2023 7:54 PM EDT Legal Sex Male 3:18 PM EDT Gender Identity Male 11/18/2023 7:54 PM EDT Sexual Orientation Heterosexual (straight) 11/17 7:54 PM EDT Last Filed Vital Signs Vital Sign Reading Time Taken Comments Blood Pressure 128/82 12/30/2024 10:54 AM EDT Pulse 95 12/30/2024 10:54 AM EDT Temperature 36.6 C (97.8 F) 12/30/2024 10:54 AM EDT Respiratory Rate 18 12/30/2024 10:54 AM EDT Oxygen Saturation 99% 12/30/2024 10:54 AM EDT Inhaled Oxygen Concentration - - Weight 80.9 kg (178 lb 5.6 oz) 12/18/2024 6:08 A M EDT Height 185.4 cm (6' 1 ) 11/22/2024 5:24 PM EDT Body Mass Index 23.53 11/22/2024 5:24 PM EDT Plan of Treatment Health Maintenance Due Date Last Done Comments Hepatitis C Virus Screening 1950 Foot Exam 10/01/1959 Lipid Panel 10/01/1959 Ophthalmology Exam 10/01/1959 DTaP/Tdap/Td Vaccines (1 - Tdap) 1968 Pneumococcal Vaccines 50+ (1 of 2 - PCV) 1968 Colonoscopy 1994 Zoster (Shingles) Vaccine (1 of 2) 10/01/1999 RSV Vaccine 50 years and older and Patients (1 - 1-dose 75+ series) 2024 Influenza Vaccine 02/14/2025 04/17/2023, , 04/05/2021, Additional history exists COVID-19 Vaccine (2023- season) 2025 Hemoglobin A1C 07/02/2025 12/31/2024, 11/12/2024 Creatinine with GFR 12/28/2025 12/28/2024, 12/27/2024, 12/23/2024, Additional history exists Advance Care Planning Completed 12/27/2024 Hepatitis B Vaccines Aged Out No long er eligible based on patient's age to complete this topic Medical Devices Implanted Type Area Property Disposal Manager Device Identifier Shelf Expiration Date Model / Serial / Lot [id number] Cage Spinal 51-71mm 16mm X-Mesh 0d Sm Posterior Expand - [id number] Implanted:Qty: 1 on 11/27/2023 by Dewey Price MD at [facility] Cage N/A: Spine Lumbar [employer] - A DARRYL AN [id number] / / .633.190 Checo Spinal Light Grn 500mm 5.5/3.5mm Matrix Taper Ti X Hard - [id number] Implanted:Qty: 1 on 11/27/2023 by Dewey Price MD at [facility] Nail/Checo N/A: Spine Lumbar [employer] - A DARRYL AN 04.633.190 / / .633.364 Transconnector Checo 62-90mm 5.5mm 6mm Matrix 8 Spine Pdcl - [id number] Implanted:Qty: 1 on 11/27/2023 by Dewey Price MD at [facility] Nail/Checo N/A: Spine Lumbar [employer] - A DARRYL AN 04.633.364 / / .633.347 Transconnector Checo 47-62mm 5.5mm 6mm Matrix 7 Spine Pdcl - [id number] Implanted:Qty: 1 on 11/27/2023 by Dewey Price MD at [facility] Nail/Checo N/A: Spine Lumbar [employer] - A DARRYL AN 04.633.347 / / [id number] Pacemaker Cardiac Thk6mm Assurity 1 Chamber Pls Gntr Is-1-07/04/2017 Implanted:Qty: 1 on 07/04/2017 Pacemaker [employer] [id number] / [id number] / [id number] Screw Bone Spine Jacky Vpr Xpdm 45mm Ti 8mm Pa Fix Angle - [id number] Implanted:Qty: 2 on 11/27/2023 by Dewey Price MD at [facility] Spine N/A: Spine Lumbar [employer] - A DARRYL AN [id number] / / [id number] Screw Set Ti Spine 1 Inner Vpr Nonst 5.5 Mm Checo - [id number] Implanted:Qty: 10 on 11/27/2023 by Dewey Price MD at [facility] Spine N/A: Spine Lumbar [employer] - A DARR[employer] AN [id number] / / [id number] Screw Bone Spine Jacky Vpr Xpdm 50mm Ti 8mm Pa Fix Angle - [id number] Implanted:Qty: 8 on 11/27/2023 by Dewey Price MD at [facility] Spine N/A: Spine Lumbar [employer] - A DARRYL AN [id number] / / [id number] Screw Bone Spine Jacky 55mm Ti 8mm Pa Fix Angle Fenestrate - [id number] Implanted:Qty: 2 on 11/27/2023 by Dewey Price MD at [facility] Spine N/A: Spine Lumbar [employer] - A DARR[employer] AN [id number] / / [id number] Graft Bone Osteoamp Xl Algrf Cmpr Sponge [id number] - [id number] Implanted:Qty: 1 on 11/27/2023 by Dewey Price MD at [facility] Tissue N/A: Back [employer] 02/01/2028 [id number] / [id number] / [id number] Patch Dural 3x1in Thk3.5mm Crnmxf Drmtrx-Onlay Plus Npor - [id number] Implanted:Qty: 1 on 11/27/2023 by Dewey Price MD at [facility] Tissue N/A: Spine Lumbar TTIA LAI [id number] 03/16/2026 [id number] / / [id number] Filler Bone Void 10cc Dbx Algrf Frzdr Putty - [id number] Implanted:Qty: 1 on 11/27/2023 by Dewey Price MD at [facility] Void Filler N/A: Back [employer] 10/04/2025 [id number] / [id number] / [id number] Filler Bone Void 10cc Dbx Algrf Frzdr Putty - [id number] Implanted:Qty: 1 on 11/27/2023 by Dewey Price MD at [facility] Void Filler N/A: Back [employer] 10/05/2025 [id number] / [id number] / 07.801.100.99s Filler Bone Void [id number] Btcp Plmr Chrns Rsrb Strp Sterl - [id number] Implanted:Qty: 1 on 11/27/2023 by Dewey Price MD at [facility] Void Filler N/A: Back [employer] - A DARRYL AN [id number] 09/13/2024 07.801.100 .99S / / [id number] 07.801.100.99s Filler Bone Void [id number] Btcp Plmr Chrns Rsrb Strp Sterl - [id number] Implanted:Qty: 1 on 11/27/2023 by Dewey Price MD at [facility] Void Filler N/A: Back [employer] - A DARR[employer] AN [id number] 09/13/2024 07.801.100 .99S / / [id number] Filler Bone Void 10cc Dbx Algrf Frzdr Putty - [id number] Implanted:Qty: 1 on 11/27/2023 by Dewey Price MD at [facility] Void Filler N/A: Back [employer] 10/05/2025 [id number] / [id number] / Procedures Procedure Name Priority Date/Time Associated Diagnosis Comments COMPREHENSIVE METABOLIC PANEL Routine 12/28/2024 6:18 AM EDT HEMOGLOBIN A1C WITH ESTIMATED AVERAGE GLUCOSE Routine 11/12/2024 2:20 AM EDT from Last 3 Months or Most Recently Relevant to Health Maintenance Results * (ABNORMAL) Comprehensive Metabolic Panel (12/28/2024 6:18 AM EDT) Glucose 112(H) 65 - 99 mg/dL 12/28/2024 7:57 AM [facility] Comment:Fasting: <100 mg/dL, Non-Fasting: <200 mg/dL (ADA 2004) Blood Urea Nitrogen (BUN) 15 8 - 21 mg/dL 12/28/2024 7:57 AM [facility] Creatinine 0.6 0.5 - 1.3 mg/dL 12/28/2024 7:57 AM [facility] eGFR >90 >59 12/28/2024 7:57 AM [facility] Comment:CKD-EPI (2020) in mL /min/1.73 sq meters. Sodium 130(L) 136 - 145 mmol/L 12/28/2024 7:57 AM [facility] Potassium 3.9 3.4 - 5.3 mmol/L 12/28/2024 7:57 AM [facility] Chloride 100 98 - 107 mmol/L 12/28/2024 7:57 AM [facility] CO2 20(L) 22 - 33 mmol/L 12/28/2024 7:57 AM [facility] Calcium 8.9 8.7 - 10.5 mg/dL 12/28/2024 7:57 AM [facility] Alkaline Phosphatase 133(H) 45 - 128 U/L 12/28/2024 7:57 AM [facility] Aspartate Aminotrans (AST) 37 10 - 55 U/L 12/28/2024 7:57 AM [facility] Alanine Aminotrans (ALT) 26 10 - 55 U/L 12/28/2024 7:57 AM [facility] Bilirubin, Total 0.8 0.2 - 1.0 mg/dL 12/28/2024 7:57 AM [facility] Protein, Total 6.9 6.3 - 8.3 g/dL 12/28/2024 7:57 AM [facility] Albumin 2.8(L) 3.4 - 4.8 g/dL 12/28/2024 7:57 AM [facility] BUN/Creatinine Ratio 25 10.0 - 25.0 Ratio 12/28/2024 7:57 AM [facility] Globulin 4.1(H) 1.5 - 3.9 g/dL 12/28/2024 7:57 AM [facility] Albumin/Globulin Ratio 0.7(L) 1.0 - 3.0 Ratio 12/28/2024 7:57 AM EDT [facility] Anion Gap 10 7 - 17 12/28/2024 7:57 AM EDT [facility] Blood Blood specimen / Unknown 12/28/2024 6:18 AM EDT 12/28/2024 7:03 AM EDT Carrie Cardona MD LAB BLOOD ORDERABLES Final Result Performing Organization Address [facility]/ZIP Co de Phone Number [address] [address], [place] [address] * (ABNORMAL) Hemoglobin A1c with Estimated Average Glucose (11/12/2024 2:20 AM EDT) Hemoglobin A1C 6.7(H) <5.7 % 11/12/2024 3:09 AM EDT [facility] Comment: A1c% Interpretation 5.7 - 6.0 Increase risk of diabetes 6.1 - 6.4 Higher risk of diabetes > or = 6.5 Consistent with diabetes Diabetes Care, 33(Supp 1):S1-S61, 2010 Estimated Average Glucose 146 mg/dL 11/12/2024 3:09 AM T [facility] Blood Blood specimen / Unknown 11/12/2024 2:20 AM EDT 11/12/2024 2:37 AM EDT Joi Melendrez APRN LAB BLOOD ORDERABLES F inal Result Performing Organization Address [facility]/ZIP Co de Phone Number [address] [address], [address] [address] from Last 3 Months or Most Recently Relevant to Health Maintenance Insurance MEDICARE PART A & B BLUE CROSS OUT OF [facility] BLUE CROSS OUT OF [facility] MEDICARE PART A & B Advance Directives Documents on File Type Date Recorded Patient Stereo Operator Expl anation Advance Directive-Scan 12/27/2024 Advan candido Directive 12/27/2024 [facility] Advance Directive-Scan 12/19/2024 [facility] 12/19/2024 * Full Code (Latest Code Status on File) Date Activated Date Inactivated Comments 11/22/2024 11:48 AM * Full Code Date Activated Date Inactivated Comments 11/11/2024 7:34 PM 11/22/2024 11:48 AM * Full Code Date Activated Date Inactivated Comments 12/06/2023 3:56 PM 11/11/2024 5:46 PM * Full Code Date Activated Date Inactivated Comments 11/19/2023 12:00 AM 12/06/2023 3:56 PM Healthcare Agents on File Name Relationship Healthcare Agent Relationshi p Communication Paige Germain Spouse 4. Next of Kin ( Spouse, Adult Child, Parent, Adult Sibling, Grandparent) [email or web address] Care Teams Environmental Air Specialist Relationship Specialty Start Date End Date Velvet Pittman MD [address] [address] PCP - General 01/02/24 Alexandria Segura, PT [address] [address] Mining EngineerSleeve [facility] 11/26/24
--- OUTSIDE RECORDS SUMMARY | 2025-06-05 01:31 | XMS_ITS | Encounter Summary ---
Author Organization [facility] Address [address] [place] [id number] Care Team Providers Care Sales Development Specialist Name Role Phone Jhonatan Calderon RN Unavailable Velvet Pittman MD Primary Care Provider [phone] Alexandria Segura PT Unavailable [phone] Encounter Details Date Type Department Care Team (Late st Contact Info) Description 01/04/2024 Scanned Document INPATIENT REHAB [address] [place] [phone] Colin Meeks [address] [place], [place] [id number] Social History Tobacco Use Types Packs/Day Years Used Date Smoking Tobacco: Never Assessed [facility] Utilities Answer Date Recorded In the past 12 months has [employer], gas, oil, or water [employer] threatened to shut off services in your [...] place to sleep or slept in a senior living (including now)? No 11/19/2023 Sex and Gender [...] documented as of this encounter Care Teams Sales Development Specialist Relationship Specialty Start Date End Date Velvet Pittman MD [address] [place] [address] PCP - General 01/02/24 Jhonatan Calderon RN [address] [place] [address] Nurse Navigator Surgery, Neurosurgery 11/20/23 4 Alexandria Segura, PT [address] [place] [address] Didactic InstructorPhotographer Medicine and Rehabilitation 11/26/24 documented as of this encounter
== END ==
LOC: HO.CARD 13:30
PROVIDERS: PCP Internal Medicine; Visit Provider Internal Medicine Cardiovascular Disease
DX: I71.20 Thoracic aortic aneurysm, without rupture, unspecified (principal)
CPT/HCPCS: 93306; Q9957

== ENCOUNTER → 2025-06-04 13:33 | Outpatient (BNV) | payer MEDICARE, SELFPAY | PROVIDERS: PCP Internal Medicine; Visit Provider Internal Medicine | DX: I35.8 Other nonrheumatic aortic valve disorders (principal); I77.810 Thoracic aortic ectasia | CPT/HCPCS: 93306 ==

== ENCOUNTER → 2025-07-02 15:16 | Outpatient (BNV) | payer MEDICARE, SELFPAY | PROVIDERS: PCP Internal Medicine; Visit Provider Internal Medicine Cardiovascular Disease | DX: Z45.018 Encounter for adjustment and management of other part of cardiac pacemaker (principal) | CPT/HCPCS: 93294 ==

== ENCOUNTER 2025-07-14 11:09 | Outpatient (AMB) | payer MEDICARE, SELFPAY ==
--- OUTSIDE RECORDS SUMMARY | 2025-07-08 23:59 | XMS_ITS | Continuity of Care Document ---
Author Organization [facility] Address [address] [place] [id number]- Care Team Providers Care Agricultural Services Director Name Role Phone Zain[Radiology] , Yessenia Primary Care Physi kathy Unavailable [facility]counter [facility] [id number] Date(s): 07/01/25 - 07/08/25 [facility] [address] [place] [address]- Attending Physician: Calvin Jang MD Admitting Physician: Calvin Jang MD Referring Physician: Zain[Radiology] Yessenia BOO Encounter Type: Office Visit Allergies, Adverse Reactions, Alerts No Known Allergies Functional Status Functional Status Assessment Assessment Assessment Component Result Effecti ve Date Disability status [CUBS] I'm Safe - I rarely have acute or chronic symptoms affecting housing, employment, social interactions, etc. 07/01/25 Do you have difficul ty dressing or bathing Unknown 07/01/25 Do you have serious difficulty walking or climbing stairs Unknown 07/01/25 Do you need any maci tional assistance or accommodations during your visit Unknown 07/01/25 Difficulty communica ting in usual language Unknown 07/01/25 Are you blind, or do you have serious difficulty seeing, even when wearing glasses Unknown 07/01/25 Because of a physica l, mental, or emotional condition, do you have difficulty doing errands alone such as visiting a physician's office or shopping Unknown 07/01/25 Are you deaf, or do you have serious difficulty hearing Unknown 07/01/25 Because of a physica l, mental, or emotional condition, do you have serious difficulty concentrating, remembering, or making decisions Unknown 07/01/25 Difficulty Reading O r Writing Unknown 07/01/25 Medications amLODIPine 5 mg oral tablet 1 tablet = 5 mg, By Mouth, Daily, 0 Refills, Maintenance, 01/11/25 10:04:00 AM EDT, Partial fill upon patient request if the prescription is for a schedule II opioid drug. Start Date: 01/11/25 Status: Ordered Medication Dispense Status: Completed Total Allowed Fills: 1 Fills Dispensed: 0 atorvastatin 20 mg oral tablet 1 tablet = 20 mg, By Mouth, Daily, # 30 tablet, 0 Refills, Maintenance, 01/10/25 3:33:00 PM EDT, Tablet, Partial fill upon patient request if the prescription is for a schedule II opioid drug. Start Date: 01/10/25 Status: Ordered Medication Dispense Status: Completed Quantity: 30.0 Unit: tablet Total Allowed Fills: 1 Fills Dispensed: 0 cholecalciferol 1000 intl units oral capsule 1 capsule = 25 mcg, By Mouth, Daily, 0 Refills, Maintenance, 01/11/25 10:08:00 AM EDT, Partial fill upon patient request if the prescription is for a schedule II opioid drug. Start Date: 01/11/25 Status: Ordered Medication Dispense Status: Completed Total Allowed Fills: 1 Fills Dispensed: 0 Detrol 2 mg oral tablet 1 tablet = 2 mg, By Mouth, 2 times a day, 0 Refills, Maintenance, 01/11/25 10:02:00 AM EDT, Partial fill upon patient request if the prescription is for a schedule II opioid drug. Start Date: 01/11/25 Status: Ordered Medication Dispense Status: Completed Total Allowed Fills: 1 Fills Dispensed: 0 diclofenac 1% topical gel 2.25 inches, Topically, Every 8 hours, PRN Pain , Mild, 0 Refills, Maintenance, 01/11/25 10:10:00 AMEDT, Partial fill upon patient request if the prescription is for a schedule II opioid drug. Start Date: 01/11/25 Status: Ordered Medication Dispense Status: Completed Total Allowed Fills: 1 Fills Dispensed: 0 duloxetine 30 mg oral enteric coated capsule TAKE 1 CAPSULE ONCE DAILY Start Date: 01/10/25 Status: Ordered Medication Dispense Status: Completed Total Allowed Fills: 1 Fills Dispensed: 0 Eliquis 5 mg oral tablet 1 tablet = 5 mg, By Mouth, 2 times a day, # 60 tablet, 5 Refills, Maintenance, 01/10/25 4:53:00 PM EDT, Tablet, Partial fill upon patient request if the prescription is for a schedule II opioid drug. Start Date: 01/10/25 Status: Ordered Medication Dispense Status: Completed Quantity: 60.0 Unit: tablet Total Allowed Fills: 1 Fills Dispensed: 0 ferrous sulfate 325 mg oral tablet 1 tablet = 325 mg, By Mouth, Daily, # 1,000 tablet, 0 Refills, Maintenance, 01/11/25 10:08:00 AM EDT, Tablet, Partial fill upon patient request if the prescription is for a schedule II opioid drug. Start Date: 01/11/25 Status: Ordered Medication Dispense Status: Completed Quantity: 1000.0 Unit: tablet Total Allowed Fills: 1 Fills Dispensed: 0 folic acid 1 mg oral tablet 1 mg, 1, tablet, By Mouth, Daily, Refills 0, Maintenance, 01/11/25 10:07:00 AM EDT, Partial fill upon patient request if the prescription is for a schedule II opioid drug. Start Date: 01/11/25 Status: Ordered Medication Dispense Status: Completed Total Allowed Fills: 1 Fills Dispensed: 0 hydrALAZINE 25 mg oral tablet 25 mg, 1, tablet, By Mouth, 3 times a day, PRN, Refills 0, Maintenance, Blood Pressure, 01/11/25 10:08:00 AM EDT, Partial fill upon patient request if the prescription is for a schedule II opioid drug. Start Date: 01/11/25 Status: Ordered Medication Dispense Status: Completed Total Allowed Fills: 1 Fills Dispensed: 0 Insulin Lispro See Instructions, 2 -8 units units before meals, 0 Refills, Maintenance, 01/11/25 10:09:00 AM EDT, Partial fill upon patient request if the prescription is for a schedule II opioid drug. Start Date: 01/11/25 Status: Ordered Medication Dispense Status: Completed Total Allowed Fills: 1 Fills Dispensed: 0 lactulose 10 gm/15 ml oral syrup 15 mL = 10 Gm, By Mouth, Daily, PRN as needed for constipation, 0 Refills, Maintenance, 01/11/25 10:10:00 AM EDT, Partial fill upon patient request if the prescription is for a schedule II opioid drug. Start Date: 01/11/25 Status: Ordered Medication Dispense Status: Completed Total Allowed Fills: 1 Fills Dispensed: 0 lisinopril 20 mg oral tablet 20 mg, 1, tablet, By Mouth, Daily, Refills 0, Maintenance, 01/11/25 10:07:00 AM EDT, Partial fill upon patient request if the prescription is for a schedule II opioid drug. Start Date: 01/11/25 Status: Ordered Medication Dispense Status: Completed Total Allowed Fills: 1 Fills Dispensed: 0 magnesium oxide 400 mg oral tablet 1 tablet = 400 mg, By Mouth, Daily, # 14 tablet, 0 Refills, Maintenance, 01/11/25 10:04:00 AM EDT, Tablet, Partial fill upon patient request if the prescription is for a schedule II opioid drug. Start Date: 01/11/25 Stop Date: 01/25/25 Status: Ordered Medication Dispense Status: Completed Quantity: 14.0 Unit: tablet Total Allowed Fills: 1 Fills Dispensed: 0 memantine 5 mg oral tablet 1 tablet = 5 mg, By Mouth, Daily, 0 Refills, Maintenance, 01/11/25 10:06:00 AM EDT, Partial fill upon patient request if the prescription is for a schedule II opioid drug. Start Date: 01/11/25 Status: Ordered Medication Dispense Status: Completed Total Allowed Fills: 1 Fills Dispensed: 0 metoprolol succinate 100 mg oral capsule, extended release 1 capsule = 100 mg, By Mouth, Daily, 0 Refills, Maintenance, 01/11/25 10:03:00 AM EDT, Partial fill upon patient request if the prescription is for a schedule II opioid drug. Start Date: 01/11/25 Status: Ordered Medication Dispense Status: Completed Total Allowed Fills: 1 Fills Dispensed: 0 MiraLax oral powder for reconstitution = 17 Gm, By Mouth, Daily, dissolve in water or juice, # 238 Gm, 0 Refills, Maintenance, 01/11/25 10:06:00 AM EDT, REC Powder, Partial fill upon patient request if the prescription is for a schedule IIopioid drug. Start Date: 01/11/25 Status: Ordered Medication Dispense Status: Completed Quantity: 238.0 Unit: g Total Allowed Fills: 1 Fills Dispensed: 0 modafinil 200 mg oral tablet 1 tablet = 200 mg, By Mouth, Daily in AM, 0 Refills, Maintenance, 01/11/25 10:05:00 AM EDT, Partial fill upon patient request if the prescription is for a schedule II opioid drug. Start Date: 01/11/25 Status: Ordered Medication Dispense Status: Completed Total Allowed Fills: 1 Fills Dispensed: 0 Multivitamin 0 Refills, Maintenance, 01/11/25 10:05:00 AM EDT, Partial fill upon patient request if the prescription is for a schedule II opioid drug. Start Date: 01/11/25 Status: Ordered Medication Dispense Status: Completed Total Allowed Fills: 1 Fills Dispensed: 0 potassium chloride 20 mEq oral tablet, extended release 1 tablet = 20 mEq, By Mouth, Daily, 0 Refills, Maintenance, 01/11/25 10:03:00 AM EDT, Partial fill upon patient request if the prescription is for a schedule II opioid drug. Start Date: 01/11/25 Status: Ordered Medication Dispense Status: Completed Total Allowed Fills: 1 Fills Dispensed: 0 pregabalin 75 mg oral capsule TAKE 1 CAPSULE ONCE DAILY IN THE EVENING 1 TO 3 HOURSBEFORE BEDTIME Start Date: 01/10/25 Status: Ordered Medication Dispense Status: Completed Total Allowed Fills: 1 Fills Dispensed: 0 psyllium 2.4 g/3.7 g oral powder for reconstitution = 2.4 Gm, By Mouth, 2 times a day, 0 Refills, Maintenance, 01/11/25 10:02:00 AM EDT, Partial fill upon patient request if the prescription is for a schedule II opioid drug. Start Date: 01/11/25 Status: Ordered Medication Dispense Status: Completed Total Allowed Fills: 1 Fills Dispensed: 0 spironolactone 25 mg oral tablet 25 mg, By Mouth, Daily, Refills 0, Maintenance, 01/13/25 1:01:00 PM EDT, Partial fill upon patient request if the prescription is for a schedule II opioid drug. Start Date: 01/13/25 Status: Ordered Medication Dispense Status: Completed Total Allowed Fills: 1 Fills Dispensed: 0 thiamine 100 mg oral tablet 100 mg, 1, tablet, By Mouth, Daily, Refills 0, Maintenance, 01/11/25 10:05:00 AM EDT, Partial fill upon patient request if the prescription is for a schedule II opioid drug. Start Date: 01/11/25 Status: Ordered Medication Dispense Status: Completed Total Allowed Fills: 1 Fills Dispensed: 0 Tylenol 325 mg oral tablet 650 mg, 2, tablet, By Mouth, Every 4 hours, PRN, # 60 tablet, Refills 0, Maintenance, for pain, 01/11/25 10:00:00 AM EDT, Partial fill upon patient request if the prescription is for a schedule II opioid drug. Start Date: 01/11/25 Status: Ordered Medication Dispense Status: Completed Quantity: 60.0 Unit: tablet Total Allowed Fills: 1 Fills Dispensed: 0 Vitamin C 500 mg oral tablet, chewable 1 tablet = 500 mg, Daily, 0 Refills, Maintenance, 01/11/25 10:05:00 AM EDT, Partial fill upon patient request if the prescription is for a schedule II opioid drug. Start Date: 01/11/25 Status: Ordered Medication Dispense Status: Completed Total Allowed Fills: 1 Fills Dispensed: 0 Vital Signs Most recent to oldest [Reference Range]: 1 Height 177.5 cm (07/01/25 2:46 PM) Weight 78.18 kg (07/01/25 2:46 PM) Oxygen Saturation [94-100 %] 98 % (07/01/25 2:46 PM) Pulse Rate [55-90 bpm] 59 bpm (07/01/25 2:46 PM) Body Mass Index [18.5-24.99 kg/m2] 24.81 kg/m2 (07/01/25 2:46 PM) Blood Pressure [90-138/55-84 mm Hg] 96/6 0mm Hg (07/01/25 2:46 PM) Mode of Delivery (Oxygen) Room air (07/01/25 2:46 PM) Blood pressure sites Arm, left (07/01/25 2:46 PM) Weight Obtained Via Patient/family state d (07/01/25 2:46 PM) Social History Social History Type Response Smoking Status Former smoker, quit more than 30 days ago entered on: 07/01/25 Sex Sex Representation Male (finding) Note * Pratima Cunha: PERFORM Event Display: Patient Education/Instruction Authored Date: [id number] Ambulatory Adult Visit Summary [address] [address] Name: EVELINA RAIN : 1950?? Visit: 07/01/2025 14:42?? Ambulatory Visit Instructions ?? Your Care Team Primary Care Provider Zain[Radiology] Yessenia BOO?? This Visit Provider Calvin Jang MD Vitals Signs Pulse Rate: 59 bpm Height: 177.5 cm Systolic Blood Pressure: 96 mm Hg Weight: 78.18 kg Diastolic Blood Pressure: 60 mm Hg Body Mass Index: 24.81 kg/m2 Oxygen Saturation: 98 % Body surface area: 1.96 What to do next Future Orders VL Ankle Brachial Indices, Routine, Reason for Exam: Diabetes with PVD, Pt Cannot Stand Alone, Once, *Est. 10/30/25 +/- 21 days, Single or Recurring Future Order VL Venous Dup Scan Venous Insuf LE Bilat, Routine, Reason for Exam: Venous Peripheral Insufficiency, Pt Cannot Stand Alone, Once, *Est. 10/30/25 +/- 21 days, Single or Recurring Future Order Medications The list below reflects the information in our records and provided by you today along with any changes made during this visit. Please continue your medications until treatment is completed or stopped by your provider. If this is different from the information you have or there are other questions,please contact the prescribing provider. What How Much When Instructions Unchanged Acetaminophen (Tylenol 325 mg oral tablet) 2 tab(s) Oral Every 4 hours as needed for for pain Unchanged Amlodipine (amLODIPine 5 mg oral tablet) 1 tab(s) Oral Daily Unchanged apixaban (Eliquis 5 mg oral tablet) 1 tab(s) Oral Twice a day Unchanged Ascorbic Acid (Vitamin C 500 mg oral tablet, chewable) 1 tab(s) Daily Unchanged Atorvastatin (atorvastatin 20 mg oral tablet) 1 tab(s) Oral Daily Unchanged Cholecalciferol (cholecalciferol 1000 intl units oral capsule) 1 capsule Oral Daily Unchanged Diclofenac Topical (diclofenac 1% topical gel) 2.25 Inch Topically Every 8 hours as needed for Pain , Mild Unchanged Duloxetine (duloxetine 30 mg oral enteric coated capsule) Special Instructions: TAKE 1 CAPSULE ONCE DAILY ?? Unchanged Ferrous Sulfate (ferrous sulfate 325 mg oral tablet) 1 tab(s) Oral Daily Unchanged Folic Acid (folic acid 1 mg oral tablet) 1 tab(s) Oral Daily Unchanged hydrALAZINE (hydrALAZINE 25 mg oral tablet) 1 tab(s) Oral 3 times a day as needed for Blood Pressure Unchanged Insulin Lispro See instructions Special Instructions: 2 -8 units units before meals ?? Unchanged Lactulose (lactulose 10 gm/ 15 ml oral syrup) 15 Milliliter Oral Daily as needed for as needed for constipation Unchanged Lisinopril (lisinopril 20 mg oral tablet) 1 tab(s) Oral Daily Unchanged Magnesium Oxide (magnesium oxide 400 mg oral tablet) 1 tab(s) Oral Daily Duration: 14 Days Unchanged Memantine (memantine 5 mg oral tablet) 1 tab(s) Oral Daily Unchanged Metoprolol (metoprolol succinate 100 mg oral capsule, extended release) 1 capsule Oral Daily Unchanged Modafinil (modafinil 200 mg oral tablet) 1 tab(s) Oral Daily in the morning Unchanged Multivitamin Unchanged Polyethylene Glycol 3350 (MiraLax oral powder for reconstitution) 17 gram Oral Daily Special Instructions: dissolve in water or juice ?? Unchanged Potassium Chloride (potassium chloride 20 mEq oral tablet, extended release) 1 tab(s) Oral Daily Unchanged Pregabalin (pregabalin 75 mg oral capsule) Special Instructions: TAKE 1 CAPSULE ONCE DAILY ??IN THE EVENING 1 TO 3 HOURSBEFORE BEDTIME ?? Unchanged Psyllium (psyllium 2.4 g/ 3.7 g oral powder for reconstitution) 2.4 gram Oral Twice a day Unchanged Spironolactone (spironolactone 25 mg oral tablet) 25 Milligram Oral Daily Ordering Physician: Marlin Pittman MD Unchanged Thiamine (thiamine 100 mg oral tablet) 1 tab(s) Oral Daily Unchanged Tolterodine (Detrol 2 mg oral tablet) 1 tab(s) Oral Twice a day Medications and Immunizations Administered Medications Given During Visit No medications given during this visit.?? Allergies (NKA means No Known Allergies) NKA Common Emergency Awareness Tips IS IT A STROKE? Act FAST and Check for these signs: FACE Does the face look uneven? ARM Does one arm drift down? SPEECH Does their speech sound strange? TIME Call at any sign of stroke ?? Heart Attack Signs Chest discomfort: Most heart attacks involve discomfort in the center of the chest and lasts more than a few minutes, or goes away and comes back. It can feel like uncomfortable pressure, squeezing, fullness or pain. Discomfort in upper body: Symptoms can include pain or discomfort in one or both arms, back, neck, jaw or stomach. Shortness of breath: With or without discomfort. Other signs: Breaking out in a cold sweat, nausea, or lightheaded. Remember, MINUTES DO MATTER. If you experience any of these heart attack warning signs, call to get immediate medical attention! ?? Smoking can increase your chances of developing chronic health problems and can cause harmful effects to other family members in your house. If you smoke, you are strongly encouraged to quit. Please call [facility] at [phone] or [phone] ([phone]) or log in to [email or web address] for referrals to smoking cessation programs. ?? The National Suicide Prevention Hotline is available 06/02 if you or someone you know needs to find a reason to keep living. By calling 5-208-818-[employer] (6058) you'll be connected to a skilled, trained counselor at a crisis center in your area. [facility] You can view and manage your care through the patient portal or by using a health care jorge of your choosing. [employer] is a website that allows you to securely view your medical information including your hospital discharge summary, office visit summaries, medications and follow-up visits. You can also request appointments, renew medications, and request access to your medical information using a health care jorge of your choosing, or just ask a question. You can enroll at [email or web address] or register during your next office visit. [facility], in keeping with [facility] guidance, no longer requires face masks for staff, patientsor visitors in most situations. Similiar to time spent indoors at other locations, there is the chance that you were exposed to repiratory viruses during your time with us (such as flu or COVID-19). If you develop symptoms concerning for a viral respiratory infection, please seek testing (and treatment if indicated) from your medical provider or home test kit. ?? Disclaimer: The information provided is of a general nature and is intended to be used in conjunction with the recommendations and advice of your health care practitioner. Every effort has been made to ensure that the information provided is accurate and complete at the time it is provided to you however, as your needs change, or, as new information becomes available, different or additional instructions may be required. ?? If you have questions, please consult with your primary care provider or pharmacist, as appropriate. This information is not intended to serve as substitution for assessment and evaluation by a qualified health care provider. If you do not have a primary care provider, you may find a [facility] provider by calling [facility] at [phone]. Patient Care team information Care Team Personnel Name: Marga Bae RN Position: Nidia RN Member Role: Primary Care Nurse Name: Shania Warner RN Position: Nidia RN Member Role: Primary Care Nurse Care Team Related Persons Name: GERMAN OLIVEIRA Name: SHANKAR RAIN Insurance Providers Guarantor name: EVELINA RAIN Health Plan Information #: 1 Payer: MEDICARE B Payer Identifier: SELWYN Member Number: [id number] Group Number: NA Subscriber Identifier: [id number] Relationship to Subscriber: self Coverage Type: NA Coverage Verification Date: NA Telecom: NA Address: Health Plan Information #: 2 Payer: [employer] SECONDARY ONLY Payer Identifier: SELWYN Member Number: [id number] Group Number: [id number] Subscriber Identifier: [id number] Relationship to Subscriber: self Coverage Type: Medicare Other Coverage Verification Date: NA Telecom: Address:
--- NOTE | 2025-07-14 11:16 | MHC.OFFVIS ---
Vital Signs 07/14/25 11:17 Height 5 ft 9 in BP 120/80 Blood Pressure Location Lt brachial Position Sitting Pulse 64 Intake Visit Reasons: f/u after echo Intake Note: Follow-up after echo doing better after the stroke Self Pay Collector Required: No Allergies bacitracin (Bacitracin) Allergy (Mild, Verified 11/11/24 13:46) ITCHING Sulfa (Sulfonamide Antibiotics) Allergy (Mild, Verified 11/11/24 13:46) Itching hydromorphone Adverse Reaction (Verified 11/11/24 13:46) Hallucinations HPI Comments Details: Catarino comes for follow-up, accompanied by his . He comes in a wheelchair. But as per the he has been doing well and has had improvement in his overall neurologic function as well as some memory and higher functioning. He is able to walk few steps but not long. He is continuing to do physical therapy and speech therapy as well as interventions to improve memory. No cardiac symptoms to report. Denies any palpitation. No lightheadedness, syncope. No orthopnea, PND, leg edema. No chest pain. Recent echocardiogram shows preserved LV ejection fraction with moderately dilated ascending aorta at 4.5 cm overall stable [facility] Medical History Chronic atrial fibrillation Thoracic aortic aneurysm HTN (hypertension) Cardiac pacemaker in situ Chronic atrial flutter Surgical History History of hammer toe correction Hx of cholecystectomy History of permanent cardiac pacemaker placement Family History Father No problems noted. Mother Cancer Social History Household Members: Spouse Housing: House Do you presently have visiting nurse or other home services: Yes Alcohol intake: former Patient Tobacco Use Status: Never used Tobacco service: No Review of Systems Const Denies chills, Denies fatigue, Denies fever(s), Denies frequent falls, Denies weakness, Denies weight gain and Denies weight loss ENT Denies dizziness Card Denies chest pain, Denies leg edema, Denies lightheadedness, Denies palpitations, Denies dyspnea, Denies dyspnea on exertion, Denies orthopnea and Denies other (loss of consciousness) Resp Denies cough, Denies dyspnea and Denies dyspnea on exertion GI Denies hematochezia and Denies change in stool character Musc Denies abnormal gait, Denies muscle weakness, Denies numbness, Denies radiating pain into limb and Denies tingling Neuro Denies abnormal gait, Denies dizziness, Denies frequent falls, Denies numbness, Denies tingling and Denies weakness Endo Denies fatigue and Denies palpitations Physical Exam Vital Signs: Last Vital Signs Pulse 64 07/14/25 11:17 BP 120/80 07/14/25 11:17 Const General: cooperative, comfortable, no acute distress, alert, awake, Physically active and well groomed Nutritional Appearance: overweight Orientation/consciousness: patient oriented x3 Limitations: ambulation with cane Neck Neck: Yes trachea midline, Yes supple and Yes no JVD Resp Effort & Inspection: normal respiratory effort Auscultation: clear to auscultation bilaterally Cardio Jugular venous distension: no JVD Palpation: normal PMI Rhythm: abnormal rhythm irregularly irregular Heart sounds: S1 normal heart sound present and S2 normal heart sound present GI Auscultation: normal bowel sounds Skin General skin exam: no rashes or lesions noted and dry skin Neuro General: patient oriented x3 and no focal motor deficits Extrem General: Yes no clubbing, cyanosis or edema Psych Appearance: grossly normal Office Procedures Cardiac Device Check Cardiac Device Check Details: Single-chamber [place] pacemaker in place. Programmed in VVI at 50 beats per minute. Ventricular pacing 43% of the time. Ventricular capture thresholds adequate and in auto capture mode. Ventricular sensing is adequate. Pacing lead impedance is stable. Battery life is at years 52025-XW Cardiac Device Check, leadless/single lead pacemaker Procedure code (CPT) selection complete Assessment & Plan Assessment & Plan (1) Chronic atrial fibrillation: Code(s): I48.20 - Chronic atrial fibrillation, unspecified Category: Medical Plan: Chronic atrial fibrillation, unfortunately with complications of stroke. Improving gradually. Has a unwell with physical therapy interventions. Continue full oral anticoagulation, currently on Eliquis 5 mg b.i.d.. Semi annual renal function test should be pursued. Continue current rate control approach. Overall no signs or symptoms of heart failure. (2) Thoracic aortic aneurysm: Comment: 4.2 cm by echocardiogram December 2019 Code(s): I71.2 - Thoracic aortic aneurysm, without rupture Category: Medical Plan: Thoracic aortic aneurysm which is moderate in size. Continue to monitor by echocardiogram on annual basis. Currently does not require any intervention. Continue metoprolol and lisinopril with adequate blood pressure control. Continue statin therapy with target goal LDL less than 100 mg/dL. (3) Cardiac pacemaker in situ: Code(s): Z95.0 - Presence of cardiac pacemaker Category: Medical Plan: Cardiac pacemaker in-situ, working well. Will follow remotely every 3 months. Follow up in the clinic in 1 year's time. Thank you for allowing me to partake in his care. Will follow up in 1 year's time. Coding Level of Care Code Est Pt Level 4 (33944) Diagnoses Chronic atrial fibrillation I48.20 Thoracic aortic aneurysm I71.2 Cardiac pacemaker in situ Z95.0 CPT Codes Cardiac Device Check - Cardiac Device 1: [id number] Cardiac Device Check, leadless/single lead pacemaker ([id number])
[2025-07-14 11:17] VITALS: BP 120/80; PULSE 64
--- OUTSIDE RECORDS SUMMARY | 2025-07-14 13:03 | XMS_ITS | Encounter Summary ---
Author Organization [facility] Address [address] [place] [address] Care Team Providers Care Auto Vinyl Top Installer Name Role Phone Velvet Pittman MD Primary Care Provider [phone] Encounter Details Date Type Department Care Team (Late st Contact Info) Description 01/25/2025 Lab Requisition [facility] - Main Lab [address] [facility] [place] [address] Omari Winters MD [address] [place] [address] Altered mental status, unspecified Social History Tobacco Use Types Packs/Day Years Used Date Smoking Tobacco: Former Cigarettes 14.4 0 02/19/1965 - 08/02/1979 Smokeless Tobacco: Never Alcohol Use Standard Drinks/Week Comments No 0 (1 standard drink = 0.6 oz pur e alcohol) Sex and Gender Information Value Date Recorded Sex Assigned at Not on file Legal Sex Male 3:28 PM EST Gender Identity Not on file Sexual Orientation Not on file documented as of this encounter Plan of Treatment Not on file documented as of this encounter Procedures Procedure Name Priority Date/Time Associated Diagnosis Comments COMPLETE BLOOD COUNT Routine 01/25/2025 6:46 AM EDT Altered mental status, unspecified BASIC METABOLIC PANEL Routine 01/25/2025 6:46 AM EDT Altered mental status, unspecified documented in this encounter Results * (ABNORMAL) Basic metabolic panel (01/25/2025 6:46 AM EDT) Sodium 136 133 - 145 mmol/L LAB CHEMISTRY METHOD 01/25/2025 11:18 AM [facility] Potassium 3.9 3.5 - 5.5 mmol/L LAB CHEMISTRY METHOD 01/25/2025 11:18 AM [facility] Chloride 104 96 - 110 mmol/L LAB CHEMISTRY METHOD 01/25/2025 11:18 AM [facility] CO2 24 21 - 32 mmol/L LAB CHEMISTRY METHOD 01/25/2025 11:18 AM [facility] Anion Gap 8 3 - 11 LAB CHEMISTRY METHOD 01/25/2025 11:18 AM [facility] Glucose 114(H) 70 - 100 mg/dL LAB CHEMISTRY METHOD 01/25/2025 11:18 AM [facility] BUN 12 5 - 25 mg/dL LAB CHEMISTRY METHOD 01/25/2025 11:18 AM [facility] Creatinine 0.65(L) 0.70 - 1.30 mg/dL LAB CHEMISTRY METHOD 01/25/2025 11:18 AM [facility] eGFR 98 >=60 mL/min/1. 73m2 LAB CHEMISTRY METHOD 01/25/2025 11:18 AM [facility] Comment:Calculation based on the Chronic Kidney Disease Epidemiology Collaboration (CKD-EPI) equation refit without adjustment for race. BUN/Creatinine Ratio 18.5 LAB CHEMISTRY METHOD 01/25/2025 11:18 AM [facility] Calcium 9.7 8.5 - 10.5 mg/dL LAB CHEMISTRY METHOD 01/25/2025 11:18 AM [facility] Blood Venous blood specimen / Unknown Venipuncture / Unknown 01/25/2025 6:46 AM EDT 01/25/2025 9:44 AM EDT Omari Winters MD LAB BLOOD ORDERABLES Final Result [facility] [address] [place] [address], * (ABNORMAL) Complete blood count (01/25/2025 6:46 AM EDT) [facility] WBC 7.8 4.8 - 10.8 K/mcL LAB HEMETOLOGY METHOD 01/25/2025 10:42 AM EDT [facility] RBC 3.80(L) 4.50 - 5.50 M/mcL LAB HEMETOLOGY METHOD 01/25/2025 10:42 AM EDT [facility] Hemoglobin 11.8(L) 13.5 - 17.5 g/dL LAB HEMETOLOGY METHOD 01/25/2025 10:42 AM EDT [facility] Hematocrit 36.1(L) 42.0 - 54.0 % LAB HEMETOLOGY METHOD 01/25/2025 10:42 AM EDT [facility] MCV 96.0 79.0 - 98.0 FL LAB HEMETOLOGY METHOD 01/25/2025 10:42 AM EDT [facility] MCH 31.4 27.0 - 32.0 pcg LAB HEMETOLOGY METHOD 01/25/2025 10:42 AM EDT [facility] MCHC 32.7 32.0 - 37.0 g/dL LAB HEMETOLOGY METHOD 01/25/2025 10:42 AM EDT [facility] RDW 13.2 11.0 - 15.0 % LAB HEMETOLOGY METHOD 01/25/2025 10:42 AM EDT [facility] Platelets 193 130 - 400 K/mcL LAB HEMETOLOGY METHOD 01/25/2025 10:42 AM EDT [facility] MPV 11.3(H) 7.0 - 11.0 FL LAB HEMETOLOGY METHOD 01/25/2025 10:42 AM EDT [facility] NRBC 0.0 <1.0 % LAB HEMETOLOGY METHOD 01/25/2025 10:42 AM EDT [facility] NRBC Absolute 0.00 <0.10 K/mcL LAB HEMETOLOGY METHOD 01/25/2025 10:42 AM EDT [facility] Blood Venous blood specimen / Unknown Venipuncture / Unknown 01/25/2025 6:46 AM EDT 01/25/2025 9:44 AM EDT us Omari Winters MD LAB BLOOD ORDERABLES Final Result [facility] [address] [place] [address], documented in this encounter Visit Diagnoses Diagnosis Altered mental status, unspecified documented in this encounter Care Teams Auto Vinyl Top Installer Relationship Specialty Start Date End Date Velvet Pittman MD [address] [place] [address] PCP - General Internal Medicine 06/07/24 documented as of this encounter
--- OUTSIDE RECORDS SUMMARY | 2025-07-14 13:03 | XMS_ITS | Encounter Summary ---
Author Organization [facility] Address [address] [place] [address] Care Team Providers Care Priming Machine Operator Name Role Phone Velvet Pittman MD Primary Care Provider [phone] Encounter Details Date Type Department Care Team (Late st Contact Info) Description 01/24/2025 Lab Requisition [facility] - Main Lab [address] [facility] [place] [address] Omari Winters MD [address] [place] [address] Essential (primary) hypertension Social History Tobacco Use Types Packs/Day Years [...] Associated Diagnosis Comments COMPLETE BLOOD COUNT Routine 01/27/2025 7:15 AM EDT Essential (primary) hypertension BASIC METABOLIC PANEL Routine 01/27/2025 7:15 AM EDT Essential (primary) hypertension documented in this encounter Results * Basic metabolic panel (01/27/2025 7:15 AM EDT) Sodium 137 133 - 145 mmol/L LAB CHEMISTRY METHOD 01/27/2025 5:23 PM [facility] Potassium 4.9 3.5 - 5.5 mmol/L LAB CHEMISTRY METHOD 01/27/2025 5:23 PM [facility] Chloride 106 96 - 110 mmol/L LAB CHEMISTRY METHOD 01/27/2025 5:23 PM [facility] CO2 24 21 - 32 mmol/L LAB CHEMISTRY METHOD 01/27/2025 5:23 PM [facility] Anion Gap 7 3 - 11 LAB CHEMISTRY METHOD 01/27/2025 5:23 PM [facility] Glucose 92 70 - 100 mg/dL LAB CHEMISTRY METHOD 01/27/2025 5:23 PM [facility] BUN 14 5 - 25 mg/dL LAB CHEMISTRY METHOD 01/27/2025 5:23 PM [facility] Creatinine 0.79 0.70 - 1.30 mg/dL LAB CHEMISTRY METHOD 01/27/2025 5:23 PM [facility] eGFR 93 >=60 mL/min/1. 73m2 LAB CHEMISTRY METHOD 01/27/2025 5:23 PM [facility] Comment:Calculation based on the Chronic Kidney Disease Epidemiology Collaboration (CKD-EPI) equation refit without adjustment for race. BUN/Creatinine Ratio 17.7 LAB CHEMISTRY METHOD 01/27/2025 5:23 PM [facility] Calcium 9.5 8.5 - 10.5 mg/dL LAB CHEMISTRY METHOD 01/27/2025 5:23 PM [facility] Blood Venous blood specimen / Unknown Venipuncture / Unknown 01/27/2025 7:15 AM EDT 01/27/2025 11:12 AM EDT us Omari Winters MD LAB BLOOD ORDERABLES Final Result [facility] [address] [place] [address], * (ABNORMAL) Complete blood count (01/27/2025 7:15 AM EDT) [facility] WBC 10.1 4.8 - 10.8 K/mcL LAB HEMETOLOGY METHOD 01/27/2025 12:35 PM EDT [facility] RBC 3.80(L) 4.50 - 5.50 M/mcL LAB HEMETOLOGY METHOD 01/27/2025 12:35 PM EDT [facility] Hemoglobin 12.1(L) 13.5 - 17.5 g/dL LAB HEMETOLOGY METHOD 01/27/2025 12:35 PM EDT [facility] Hematocrit 37.4(L) 42.0 - 54.0 % LAB HEMETOLOGY METHOD 01/27/2025 12:35 PM EDT [facility] MCV 97.9 79.0 - 98.0 FL LAB HEMETOLOGY METHOD 01/27/2025 12:35 PM EDT [facility] MCH 31.7 27.0 - 32.0 pcg LAB HEMETOLOGY METHOD 01/27/2025 12:35 PM EDT [facility] MCHC 32.4 32.0 - 37.0 g/dL LAB HEMETOLOGY METHOD 01/27/2025 12:35 PM EDT [facility] RDW 13.5 11.0 - 15.0 % LAB HEMETOLOGY METHOD 01/27/2025 12:35 PM EDT [facility] Platelets 195 130 - 400 K/mcL LAB HEMETOLOGY METHOD 01/27/2025 12:35 PM EDT [facility] MPV 11.7(H) 7.0 - 11.0 FL LAB HEMETOLOGY METHOD 01/27/2025 12:35 PM EDT [facility] NRBC 0.0 <1.0 % LAB HEMETOLOGY METHOD 01/27/2025 12:35 PM EDT [facility] NRBC Absolute 0.00 <0.10 K/mcL LAB HEMETOLOGY METHOD 01/27/2025 12:35 PM EDT [facility] Blood Venous blood specimen / Unknown Venipuncture / Unknown 01/27/2025 7:15 AM EDT 01/27/2025 11:12 AM EDT us Omari Winters MD LAB BLOOD ORDERABLES Final Result [facility] [address] [place] [address], documented in this encounter Visit Diagnoses Diagnosis Essential (primary) hypertension Unspecified essential hypertension documented in this encounter Care Teams Priming Machine Operator Relationship Specialty Start Date End Date Velvet Pittman MD [address] [place] [address] PCP - General Internal Medicine 06/07/24 documented as of this encounter
--- OUTSIDE RECORDS SUMMARY | 2025-07-14 13:03 | XMS_ITS | Encounter Summary ---
Author Organization [facility] Address [address] [place] [address] Care Team Providers Care Engineering Faculty Member Name Role Phone Velvet Pittman MD Primary Care Provider [phone] Encounter Details Date Type Department Care Team (Late st Contact Info) Description 02/07/2025 Lab Requisition [facility] - Main Lab [address] [facility] [place] [address] Omari Winters MD [address] [place] [address] Essential (primary) hypertension Social History Tobacco Use [...] Associated Diagnosis Comments COMPLETE BLOOD COUNT Routine 02/10/2025 8:10 AM EDT Essential (primary) hypertension BASIC METABOLIC PANEL Routine 02/10/2025 8:10 AM EDT Essential (primary) hypertension documented in this encounter Results * (ABNORMAL) Basic metabolic panel (02/10/2025 8:10 AM EDT) Sodium 132(L) 133 - 145 mmol/L LAB CHEMISTRY METHOD 02/10/2025 1:45 PM [facility] Potassium 4.3 3.5 - 5.5 mmol/L LAB CHEMISTRY METHOD 02/10/2025 1:45 PM [facility] Chloride 101 96 - 110 mmol/L LAB CHEMISTRY METHOD 02/10/2025 1:45 PM [facility] CO2 24 21 - 32 mmol/L LAB CHEMISTRY METHOD 02/10/2025 1:45 PM [facility] Anion Gap 7 3 - 11 LAB CHEMISTRY METHOD 02/10/2025 1:45 PM [facility] Glucose 115(H) 70 - 100 mg/dL LAB CHEMISTRY METHOD 02/10/2025 1:45 PM [facility] BUN 13 5 - 25 mg/dL LAB CHEMISTRY METHOD 02/10/2025 1:45 PM [facility] Creatinine 0.59(L) 0.70 - 1.30 mg/dL LAB CHEMISTRY METHOD 02/10/2025 1:45 PM [facility] eGFR 101 >=60 mL/min/1. 73m2 LAB CHEMISTRY METHOD 02/10/2025 1:45 PM [facility] Comment:Calculation based on the Chronic Kidney Disease Epidemiology Collaboration (CKD-EPI) equation refit without adjustment for race. BUN/Creatinine Ratio 22.0 LAB CHEMISTRY METHOD 02/10/2025 1:45 PM [facility] Calcium 9.2 8.5 - 10.5 mg/dL LAB CHEMISTRY METHOD 02/10/2025 1:45 PM [facility] Blood Venous blood specimen / Unknown Venipuncture / Unknown 02/10/2025 8:10 AM EDT 02/10/2025 11:44 AM EDT Omari Winters MD LAB BLOOD ORDERABLES Final Result [facility] [address] [place] [address], * (ABNORMAL) Complete blood count (02/10/2025 8:10 AM EDT) [facility] WBC 9.2 4.8 - 10.8 K/mcL LAB HEMETOLOGY METHOD 02/10/2025 12:48 PM EDT [facility] RBC 3.50(L) 4.50 - 5.50 M/mcL LAB HEMETOLOGY METHOD 02/10/2025 12:48 PM EDT [facility] Hemoglobin 11.0(L) 13.5 - 17.5 g/dL LAB HEMETOLOGY METHOD 02/10/2025 12:48 PM EDT [facility] Hematocrit 33.6(L) 42.0 - 54.0 % LAB HEMETOLOGY METHOD 02/10/2025 12:48 PM EDT [facility] MCV 94.9 79.0 - 98.0 FL LAB HEMETOLOGY METHOD 02/10/2025 12:48 PM EDT [facility] MCH 31.1 27.0 - 32.0 pcg LAB HEMETOLOGY METHOD 02/10/2025 12:48 PM EDT [facility] MCHC 32.7 32.0 - 37.0 g/dL LAB HEMETOLOGY METHOD 02/10/2025 12:48 PM EDT [facility] RDW 13.2 11.0 - 15.0 % LAB HEMETOLOGY METHOD 02/10/2025 12:48 PM EDT [facility] Platelets 177 130 - 400 K/mcL LAB HEMETOLOGY METHOD 02/10/2025 12:48 PM EDT [facility] MPV 11.4(H) 7.0 - 11.0 FL LAB HEMETOLOGY METHOD 02/10/2025 12:48 PM EDT [facility] NRBC 0.0 <1.0 % LAB HEMETOLOGY METHOD 02/10/2025 12:48 PM EDT [facility] NRBC Absolute 0.00 <0.10 K/mcL LAB HEMETOLOGY METHOD 02/10/2025 12:48 PM EDT [facility] Blood Venous blood specimen / Unknown Venipuncture / Unknown 02/10/2025 8:10 AM EDT 02/10/2025 11:44 AM EDT us Omari Winters MD LAB BLOOD ORDERABLES Final Result [facility] [address] [place] [address], documented in this encounter Visit Diagnoses Diagnosis Essential (primary) hypertension Unspecified essential hypertension documented in this encounter Care Teams Engineering Faculty Member Relationship Specialty Start Date End Date Velvet Pittman MD [address] [place] [address] PCP - General Internal Medicine 06/07/24 documented as of this encounter
--- OUTSIDE RECORDS SUMMARY | 2025-07-14 13:03 | XMS_ITS | Encounter Summary ---
Author Organization [facility] Address [address] [place] [address] Care Team Providers Care Back Tender Insulation Board Name Role Phone Velvet Pittman MD Primary Care Provider [phone] Alexandria Segura PT Unavailable [phone] Encounter Details Date Type Department Care Team (Late st Contact Info) Description 12/25/2024 Scanned Document [facility] [place] [address] [place] [phone] [id number] Social History Tobacco Use Types Packs/Day Years Used Date Smoking Tobacco: Never Smokeless Tobacco: Never Alcohol Use Standard Drinks/Week Comments Yes 0 (1 standard drink = 0.6 oz pur e alcohol) social [facility] Utilities Answer Date Recorded In the past 12 months has [employer], gas, oil, or water company threatened to [...] place to sleep or slept in a fdc (including now)? No 11/19/2023 Housing Stability Vital Sign Answer Jimmie e Recorded In the last 12 months, was t here a time when you were not able to pay the mortgage or rent on time? No 11/12/2024 In the past 12 months, how m any times have you moved where you were living? 0 11/12/2024 At any time in the past 12 m [facility], were you homeless or living in a fdc (including now)? No 11/12/2024 Sex and Gender [...] on filedocumented in this encounter Care Teams Back Tender Insulation Board Relationship Specialty Start Date End Date Velvet Pittman MD [address] [address] PCP - General 01/02/24 Alexandria Segura, PT [address] [address] Building Maintenance MechanicConductor [facility] 11/26/24 documented as of this encounter
--- OUTSIDE RECORDS SUMMARY | 2025-07-14 13:03 | XMS_ITS | Encounter Summary ---
Author Organization [facility] Address [address] [place] [address] Care Team Providers Care Grinder Operator Surface Tool Name Role Phone Velvet Pittman MD Primary Care Provider [phone] Encounter Details Date Type Department Care Team (Late st Contact Info) Description 01/16/2025 Lab Requisition [facility] - Main Lab 299 [facility] [place] [address] Omari Winters MD [address] [place] [address] Essential (primary) hypertension Social History Tobacco Use [...] Associated Diagnosis Comments COMPLETE BLOOD COUNT Routine 01/20/2025 7:10 AM EDT Essential (primary) hypertension BASIC METABOLIC PANEL Routine 01/20/2025 7:10 AM EDT Essential (primary) hypertension documented in this encounter Results * (ABNORMAL) Basic metabolic panel (01/20/2025 7:10 AM EDT) Sodium 138 133 - 145 mmol/L LAB CHEMISTRY METHOD 01/20/2025 12:34 PM [facility] Potassium 3.6 3.5 - 5.5 mmol/L LAB CHEMISTRY METHOD 01/20/2025 12:34 PM [facility] Chloride 106 96 - 110 mmol/L LAB CHEMISTRY METHOD 01/20/2025 12:34 PM [facility] CO2 23 21 - 32 mmol/L LAB CHEMISTRY METHOD 01/20/2025 12:34 PM [facility] Anion Gap 9 3 - 11 LAB CHEMISTRY METHOD 01/20/2025 12:34 PM [facility] Glucose 108(H) 70 - 100 mg/dL LAB CHEMISTRY METHOD 01/20/2025 12:34 PM [facility] BUN 16 5 - 25 mg/dL LAB CHEMISTRY METHOD 01/20/2025 12:34 PM [facility] Creatinine 0.73 0.70 - 1.30 mg/dL LAB CHEMISTRY METHOD 01/20/2025 12:34 PM [facility] eGFR 95 >=60 mL/min/1. 73m2 LAB CHEMISTRY METHOD 01/20/2025 12:34 PM [facility] Comment:Calculation based on the Chronic Kidney Disease Epidemiology Collaboration (CKD-EPI) equation refit without adjustment for race. BUN/Creatinine Ratio 21.9 LAB CHEMISTRY METHOD 01/20/2025 12:34 PM [facility] Calcium 9.1 8.5 - 10.5 mg/dL LAB CHEMISTRY METHOD 01/20/2025 12:34 PM [facility] Blood Venous blood specimen / Unknown Venipuncture / Unknown 01/20/2025 7:10 AM EDT 01/20/2025 10:43 AM EDT us Omari Winters MD LAB BLOOD ORDERABLES Final Result [facility] [address] [place] [address], * (ABNORMAL) Complete blood count (01/20/2025 7:10 AM EDT) WBC 8.9 4.8 - 10.8 K/mcL LAB HEMETOLOGY METHOD 01/20/2025 11:37 AM EDT [facility] RBC 4.00(L) 4.50 - 5.50 M/mcL LAB HEMETOLOGY METHOD 01/20/2025 11:37 AM EDT [facility] Hemoglobin 12.7(L) 13.5 - 17.5 g/dL LAB HEMETOLOGY METHOD 01/20/2025 11:37 AM EDT [facility] Hematocrit 39.9(L) 42.0 - 54.0 % LAB HEMETOLOGY METHOD 01/20/2025 11:37 AM EDT [facility] MCV 98.8(H) 79.0 - 98.0 FL LAB HEMETOLOGY METHOD 01/20/2025 11:37 AM EDT [facility] MCH 31.4 27.0 - 32.0 pcg LAB HEMETOLOGY METHOD 01/20/2025 11:37 AM EDT [facility] MCHC 31.8(L) 32.0 - 37.0 g/dL LAB HEMETOLOGY METHOD 01/20/2025 11:37 AM EDT [facility] RDW 13.2 11.0 - 15.0 % LAB HEMETOLOGY METHOD 01/20/2025 11:37 AM EDT [facility] Platelets 203 130 - 400 K/mcL LAB HEMETOLOGY METHOD 01/20/2025 11:37 AM EDT [facility] MPV 11.4(H) 7.0 - 11.0 FL LAB HEMETOLOGY METHOD 01/20/2025 11:37 AM EDT [facility] NRBC 0.0 <1.0 % LAB HEMETOLOGY METHOD 01/20/2025 11:37 AM EDT [facility] NRBC Absolute 0.00 <0.10 K/mcL LAB HEMETOLOGY METHOD 01/20/2025 11:37 AM EDT [facility] Blood Venous blood specimen / Unknown Venipuncture / Unknown 01/20/2025 7:10 AM EDT 01/20/2025 10:43 AM EDT us Omari Winters MD LAB BLOOD ORDERABLES Final Result [facility] [address] [place] [address], documented in this encounter Visit Diagnoses Diagnosis Essential (primary) hypertension Unspecified essential hypertension documented in this encounter Care Teams Grinder Operator Surface Tool Relationship Specialty Start Date End Date Velvet Pittman MD [address] [place] [id number] PCP - General Internal Medicine 06/07/24 documented as of this encounter
--- OUTSIDE RECORDS SUMMARY | 2025-07-14 13:03 | XMS_ITS | Encounter Summary ---
Author Organization [facility] Address [address] [place] [address] Care Team Providers Care Knit Goods Press Hand Name Role Phone Velvet Pittman MD Primary Care Provider Encounter Details Date Type Department Care Team (Late st Contact Info) Description 01/10/2025 Lab Requisition [facility] - Main Lab [address] [place] [address] Omari Winters MD [address] [place] [phone] Unspecified atrial fibrillation (CMS/HCC V24, CMS/HCC V28); Cerebral infarction, unspecified (CMS/HCC V24, CMS/HCC V28); Essential (primary) hypertension Social History Tobacco Use [...] as of this encounter Visit Diagnoses Diagnosis Unspecified atrial fibrillation (CMS/HCC V24, CMS/HCC V28) Cerebral infarction, unspecified (CMS/HCC V24, CMS/HCC V28) Essential (primary) hypertension Unspecified essential hypertension documented in this encounter Care Teams Knit Goods Press Hand Relationship Specialty Start Date End Date Velvet Pittman MD [address] [place] [phone] PCP - General Internal Medicine 06/07/24 documented as of this encounter
--- OUTSIDE RECORDS SUMMARY | 2025-07-14 13:03 | XMS_ITS | Encounter Summary ---
Author Organization [facility] Address [address] [place] [address] Care Team Providers Care Process Treater Name Role Phone Velvet Pittman MD Primary Care Provider [phone] Encounter Details Date Type Department Care Team (Late st Contact Info) Description 01/14/2025 Lab Requisition [facility] - Main Lab 299 [facility] [place] [address] Omari Winters MD [address] [place] [address] Essential (primary) hypertension Social History Tobacco Use [...] Procedure Name Priority Date/Time Associated Diagnosis Comments CBC WITH AUTO DIFFERENTIAL Routine 01/14/2025 6:05 AM EDT Essential (primary) hypertension CBC AND DIFFERENTIAL Routine 01/14/2025 6:05 AM EDT Essential (primary) hypertension COMPREHENSIVE METABOLIC PANEL Routine 01/14/2025 6:05 AM EDT Essential (primary) hypertension documented in this encounter Results * (ABNORMAL) CBC auto differential (01/14/2025 6:05 AM EDT) [facility] WBC 8.6 4.8 - 10.8 K/mcL LAB HEMETOLOGY METHOD 01/14/2025 7:39 AM [facility] RBC 3.50(L) 4.50 - 5.50 M/mcL LAB HEMETOLOGY METHOD 01/14/2025 7:39 AM [facility] Hemoglobin 11.1(L) 13.5 - 17.5 g/dL LAB HEMETOLOGY METHOD 01/14/2025 7:39 AM [facility] Hematocrit 34.0(L) 42.0 - 54.0 % LAB HEMETOLOGY METHOD 01/14/2025 7:39 AM [facility] MCV 96.0 79.0 - 98.0 FL LAB HEMETOLOGY METHOD 01/14/2025 7:39 AM [facility] MCH 31.4 27.0 - 32.0 pcg LAB HEMETOLOGY METHOD 01/14/2025 7:39 AM [facility] MCHC 32.6 32.0 - 37.0 g/dL LAB HEMETOLOGY METHOD 01/14/2025 7:39 AM [facility] RDW 13.2 11.0 - 15.0 % LAB HEMETOLOGY METHOD 01/14/2025 7:39 AM [facility] Platelets 187 130 - 400 K/mcL LAB HEMETOLOGY METHOD 01/14/2025 7:39 AM [facility] MPV 10.4 7.0 - 11.0 FL LAB HEMETOLOGY METHOD 01/14/2025 7:39 AM [facility] NRBC 0.0 <1.0 % LAB HEMETOLOGY METHOD 01/14/2025 7:39 AM [facility] NRBC Absolute 0.00 <0.10 K/mcL LAB HEMETOLOGY METHOD 01/14/2025 7:39 AM [facility] Neutrophils Relative 62.3 % LAB HEMETOLOGY METHOD 01/14/2025 7:39 AM [facility] Lymphocytes Relative 21.8 % LAB HEMETOLOGY METHOD 01/14/2025 7:39 AM [facility] Monocytes Relative 10.9 % LAB HEMETOLOGY METHOD 01/14/2025 7:39 AM [facility] Eosinophils Relative 3.7 % LAB HEMETOLOGY METHOD 01/14/2025 7:39 AM [facility] Basophils Relative 0.8 % LAB HEMETOLOGY METHOD 01/14/2025 7:39 AM [facility] Immature Granulocytes Relative 0.5 % LAB HEMETOLOGY METHOD 01/14/2025 7:39 AM [facility] Neutrophils Absolute 5.39 1.50 - 7.00 K/mcL LAB HEMETOLOGY METHOD 01/14/2025 7:39 AM [facility] Lymphocytes Absolute 1.88 1.00 - 5.00 K/mcL LAB HEMETOLOGY METHOD 01/14/2025 7:39 AM [facility] Monocytes Absolute 0.94 0.20 - 1.00 K/mcL LAB HEMETOLOGY METHOD 01/14/2025 7:39 AM [facility] Eosinophils Absolute 0.32 0.00 - 0.50 K/mcL LAB HEMETOLOGY METHOD 01/14/2025 7:39 AM [facility] Basophils Absolute 0.07 0.00 - 0.20 K/mcL LAB HEMETOLOGY METHOD 01/14/2025 7:39 AM [facility] Immature Granulocytes Absolute 0.04(H) 0.00 - 0.03 K/mcL LAB HEMETOLOGY METHOD 01/14/2025 7:39 AM [facility] Blood Venous blood specimen / Unknown Venipuncture / Unknown 01/14/2025 6:05 AM EDT 01/14/2025 7:02 AM EDT us Omari Winters MD LAB BLOOD ORDERABLES Final Result [facility] [address] [place] [address], [place] [phone] * (ABNORMAL) Comprehensive metabolic panel (01/14/2025 6:05 AM EDT) Sodium 140 133 - 145 mmol/L LAB CHEMISTRY METHOD 01/14/2025 8:09 AM [facility] Potassium 3.6 3.5 - 5.5 mmol/L LAB CHEMISTRY METHOD 01/14/2025 8:09 AM [facility] Chloride 108 96 - 110 mmol/L LAB CHEMISTRY METHOD 01/14/2025 8:09 AM [facility] CO2 26 21 - 32 mmol/L LAB CHEMISTRY METHOD 01/14/2025 8:09 AM [facility] Anion Gap 6 3 - 11 LAB CHEMISTRY METHOD 01/14/2025 8:09 AM [facility] Glucose 104(H) 70 - 100 mg/dL LAB CHEMISTRY METHOD 01/14/2025 8:09 AM [facility] BUN 9 5 - 25 mg/dL LAB CHEMISTRY METHOD 01/14/2025 8:09 AM [facility] Creatinine 0.57(L) 0.70 - 1.30 mg/dL LAB CHEMISTRY METHOD 01/14/2025 8:09 AM [facility] eGFR 102 >=60 mL/min/1. 73m2 LAB CHEMISTRY METHOD 01/14/2025 8:09 AM [facility] Comment:Calculation based on the Chronic Kidney Disease Epidemiology Collaboration (CKD-EPI) equation refit without adjustment for race. BUN/Creatinine Ratio 15.8 LAB CHEMISTRY METHOD 01/14/2025 8:09 AM [facility] Calcium 8.9 8.5 - 10.5 mg/dL LAB CHEMISTRY METHOD 01/14/2025 8:09 AM [facility] AST (SGOT) 19 10 - 42 unit/L LAB CHEMISTRY METHOD 01/14/2025 8:09 AM [facility] ALT (SGPT) 23 10 - 60 unit/L LAB CHEMISTRY METHOD 01/14/2025 8:09 AM [facility] Alkaline Phosphatase 127(H) 42 - 121 unit/L LAB CHEMISTRY METHOD 01/14/2025 8:09 AM [facility] Total Protein 7.2 6.0 - 8.0 g/dL LAB CHEMISTRY METHOD 01/14/2025 8:09 AM [facility] Albumin 3.0(L) 3.2 - 5.0 g/dL LAB CHEMISTRY METHOD 01/14/2025 8:09 AM [facility] Total Bilirubin 0.5 0.0 - 1.4 mg/dL LAB CHEMISTRY METHOD 01/14/2025 8:09 AM [facility] Blood Venous blood specimen / Unknown Venipuncture / Unknown 01/14/2025 6:05 AM EDT 01/14/2025 7:02 AM EDT us Omari Winters MD LAB BLOOD ORDERABLES Final Result [facility] [address] [place] [address], documented in this encounter Visit Diagnoses Diagnosis Essential (primary) hypertension Unspecified essential hypertension documented in this encounter Care Teams Process Treater Relationship Specialty Start Date End Date Velvet Pittman MD [address] [place] [phone] PCP - General Internal Medicine 06/07/24 documented as of this encounter
--- OUTSIDE RECORDS SUMMARY | 2025-07-14 13:03 | XMS_ITS | Encounter Summary ---
Author Organization [facility] Address [address] [place] [address] Care Team Providers Care Farm Implement Engine Mechanic Name Role Phone Velvet Pittman MD Primary Care Provider [phone] Encounter Details Date Type Department Care Team (Late st Contact Info) Description 02/06/2025 Lab Requisition [facility] - Main Lab 299 [facility] [place] [address] Omari Winters MD [address] [place] [address] Altered mental status, unspecified; Dysuria Social History Tobacco Use Types Packs/Day Years [...] Procedure Name Priority Date/Time Associated Diagnosis Comments URINALYSIS WITH REFLEX MICROSCOPIC AND CULTURE Routine 02/06/2025 5:00 AM EDT Altered mental status, unspecified Dysuria SAAB URINE CULTURE TUBE Routine 02/06/2025 5:00 AM EDT Altered mental status, unspecified Dysuria URINALYSIS WITH REFLEX MICROSCOPIC AND CULTURE Routine 02/06/2025 5:00 AM EDT Altered mental status, unspecified Dysuria CULTURE URINE Routine 02/06/2025 5:00 AM EDT Altered mental status, unspecified Dysuria documented in this encounter Results * (ABNORMAL) Culture urine (02/06/2025 5:00 AM EDT) Culture, Urine <10,000 CFU/mL Enterococcus faecalis(A) EMMANUELLE 02/08/2025 9:52 AM EDT [facility] Comment: Edited result: Previously reported as Enterococcus species on 02/07/2025 at 1102 EDT. Urine Urinary bladder structure / Unknown Non-blood Collection / Unknown 02/06/2025 5:00 AM EDT 02/06/2025 9:52 AM EDT Narrative [facility] - 02/08/2025 9:52 AM EDT Additional colony types present in insignificant amounts. Organism Antibiotic Method Susceptibility Enterococcus faecalis Benzylpenicillin EMMANUELLE 8 ug/ml: Susceptible Enterococcus faecalis Ampicillin EMMANUELLE <=2 ug/ml: Susceptible Enterococcus faecalis Ciprofloxacin EMMANUELLE <=0.5 ug/ml: Susceptible Enterococcus faecalis Levofloxacin EMMANUELLE 1 ug/ml: Susceptible Enterococcus faecalis Linezolid EMMANUELLE 2 ug/ml: Susceptible Enterococcus faecalis Vancomycin EMMANUELLE 1 ug/ml: Susceptible Enterococcus faecalis Tetracycline EMMANUELLE >=16 ug/ml: Resistant Enterococcus faecalis Nitrofurantoin EMMANUELLE <=16 ug/ml: Susceptible Omair Winters MD LAB MICROBIOLOGY - GENERAL ORDERABLES Final Result [facility] [address] [place] [address], [place] [phone] * (ABNORMAL) Urinalysis with reflex microscopic and culture (02/06/2025 5:00 AM EDT) Specific [place] Urine 1.014 1.003 - 1.030 LAB URINALYSIS - AUTOMATED METHOD 02/06/2025 9:52 AM EDT [facility] pH, Urine 7.0 5.0 - 8.0 pH LAB URINALYSIS - AUTOMATED METHOD 02/06/2025 9:52 AM [facility] Leukocytes, Urine Trace(A) Negative LAB URINALYSIS - AUTOMATED METHOD 02/06/2025 9:52 AM [facility] Nitrite, Urine Negative Negative LAB URINALYSIS - AUTOMATED METHOD 02/06/2025 9:52 AM [facility] Protein, Urine Negative <=Trace mg/dL LAB URINALYSIS - AUTOMATED METHOD 02/06/2025 9:52 AM [facility] Glucose, Urine Negative Negative mg/dL LAB URINALYSIS - AUTOMATED METHOD 02/06/2025 9:52 AM [facility] Ketones, Urine Negative Negative mg/dL LAB URINALYSIS - AUTOMATED METHOD 02/06/2025 9:52 AM [facility] Urobilinogen, Urine 0.2 0.2 - 1.0 mg/dL LAB URINALYSIS - AUTOMATED METHOD 02/06/2025 9:52 AM [facility] Bilirubin, Urine Negative Negative LAB URINALYSIS - AUTOMATED METHOD 02/06/2025 9:52 AM [facility] Blood, Urine Negative Negative LAB URINALYSIS - AUTOMATED METHOD 02/06/2025 9:52 AM [facility] RBC, Urine 3.2 0 - 4 /HPF LAB URINALYSIS - AUTOMATED METHOD 02/06/2025 9:52 AM [facility] WBC, Urine 0.8 0 - 4 /HPF LAB URINALYSIS - AUTOMATED METHOD 02/06/2025 9:52 AM [facility] Squamous Epithelial, Urine 9 0 - 60 /LPF LAB URINALYSIS - AUTOMATED METHOD 02/06/2025 9:52 AM [facility] Bacteria, Urine Negative Negative /HPF LAB URINALYSIS - AUTOMATED METHOD 02/06/2025 9:52 AM EDT [facility] Hyaline Casts, Urine 0.0 0 - 3 /LPF LAB URINALYSIS - AUTOMATED METHOD 02/06/2025 9:52 AM EDT [facility] Urine Urinary bladder structure / Unknown Non-blood Collection / Unknown 02/06/2025 5:00 AM EDT 02/06/2025 9:02 AM EDT Omari Winters MD LAB URINE ORDERABLES Final Result [facility] [address] [place] [address], [place] [phone] * Saab urine culture tube (02/06/2025 5:00 AM EDT) Extra Tube Hold for add-ons. 02/06/2025 11:01 AM EDT [facility] Comment:Auto resulted. Urine Urinary bladder structure / Unknown Non-blood Collection / Unknown 02/06/2025 5:00 AM EDT 02/06/2025 9:02 AM EDT Omari Winters MD LAB URINE ORDERABLES Final Result Performing Organization Address City/[facility]/ZIP Co de Phone Number [facility] [address] [place] [address], [place] [phone] documented in this encounter Visit Diagnoses Diagnosis Altered mental status, unspecified Dysuria documented in this encounter Care Teams Farm Implement Engine Mechanic Relationship Specialty Start Date End Date Velvet Pittman MD [address] [place] [phone] PCP - General Internal Medicine 06/07/24 documented as of this encounter
--- OUTSIDE RECORDS SUMMARY | 2025-07-14 13:03 | XMS_ITS | Encounter Summary ---
Author Organization [facility] Address [address] [place] [address] Care Team Providers Care Java Golden Gate Developer Name Role Phone Velvet Pittman MD Primary Care Provider [phone] Encounter Details Date Type Department Care Team (Late st Contact Info) Description 03/01/2025 Lab Requisition [facility] - Main Lab 299 [facility] [place] [address] Omari Winters MD [address] [place] [id number] Essential (primary) hypertension Social History Tobacco Use [...] Associated Diagnosis Comments COMPLETE BLOOD COUNT Routine 03/03/2025 8:49 AM EDT Essential (primary) hypertension BASIC METABOLIC PANEL Routine 03/03/2025 8:49 AM EDT Essential (primary) hypertension documented in this encounter Results * (ABNORMAL) Basic metabolic panel (03/03/2025 8:49 AM EDT) [facility] Signature Sodium 133 133 - 145 mmol/L LAB CHEMISTRY METHOD 03/03/2025 11:10 AM [facility] Potassium 3.8 3.5 - 5.5 mmol/L LAB CHEMISTRY METHOD 03/03/2025 11:10 AM [facility] Chloride 102 96 - 110 mmol/L LAB CHEMISTRY METHOD 03/03/2025 11:10 AM [facility] CO2 23 21 - 32 mmol/L LAB CHEMISTRY METHOD 03/03/2025 11:10 AM [facility] Anion Gap 8 3 - 11 LAB CHEMISTRY METHOD 03/03/2025 11:10 AM [facility] Glucose 145(H) 70 - 100 mg/dL LAB CHEMISTRY METHOD 03/03/2025 11:10 AM [facility] BUN 10 5 - 25 mg/dL LAB CHEMISTRY METHOD 03/03/2025 11:10 AM [facility] Creatinine 0.64(L) 0.70 - 1.30 mg/dL LAB CHEMISTRY METHOD 03/03/2025 11:10 AM [facility] eGFR 99 >=60 mL/min/1. 73m2 LAB CHEMISTRY METHOD 03/03/2025 11:10 AM [facility] Comment:Calculation based on the Chronic Kidney Disease Epidemiology Collaboration (CKD-EPI) equation refit without adjustment for race. BUN/Creatinine Ratio 15.6 LAB CHEMISTRY METHOD 03/03/2025 11:10 AM [facility] Calcium 9.0 8.5 - 10.5 mg/dL LAB CHEMISTRY METHOD 03/03/2025 11:10 AM [facility] Blood Venous blood specimen / Unknown Venipuncture / Unknown 03/03/2025 8:49 AM EDT 03/03/2025 9:50 AM EDT us Omari Winters MD LAB BLOOD ORDERABLES Final Result [facility] [address] [place] [address], * (ABNORMAL) Complete blood count (03/03/2025 8:49 AM EDT) [facility] WBC 10.2 4.8 - 10.8 K/mcL LAB HEMETOLOGY METHOD 03/03/2025 10:[address] [facility] RBC 3.80(L) 4.50 - 5.50 M/mcL LAB HEMETOLOGY METHOD 03/03/2025 10:[address] [facility] Hemoglobin 11.5(L) 13.5 - 17.5 g/dL LAB HEMETOLOGY METHOD [facility] Hematocrit 35.0(L) 42.0 - 54.0 % LAB HEMETOLOGY METHOD 03/03/2025 10:[address] [facility] MCV 93.1 79.0 - 98.0 FL LAB HEMETOLOGY METHOD 03/03/2025 10:[address] [facility] MCH 30.6 27.0 - 32.0 pcg LAB HEMETOLOGY METHOD 03/03/2025 10:19 AM [facility] MCHC 32.9 32.0 - 37.0 g/dL LAB HEMETOLOGY METHOD 03/03/2025 10:[address] [facility] RDW 13.3 11.0 - 15.0 % LAB HEMETOLOGY METHOD 03/03/2025 10:[address] [facility] Platelets 170 130 - 400 K/mcL LAB HEMETOLOGY METHOD 03/03/2025 10:[facility] MPV 10.7 7.0 - 11.0 FL LAB HEMETOLOGY METHOD 03/03/2025 10:[address] [facility] NRBC 0.0 <1.0 % LAB HEMETOLOGY METHOD 03/03/2025 10:[address] [facility] NRBC Absolute 0.00 <0.10 K/mcL LAB HEMETOLOGY METHOD 03/03/2025 10:[address] [facility] Blood Venous blood specimen / Unknown Venipuncture / Unknown 03/03/2025 8:49 AM EDT 03/03/2025 9:48 AM EDT us Omari Winters MD LAB BLOOD ORDERABLES Final Result [facility] [address] [place] [address], documented in this encounter Visit Diagnoses Diagnosis Essential (primary) hypertension Unspecified essential hypertension documented in this encounter Care Teams Java Golden Gate Developer Relationship Specialty Start Date End Date Velvet Pittman MD [address] [place] [phone] PCP - General Internal Medicine 06/07/24 documented as of this encounter
--- OUTSIDE RECORDS SUMMARY | 2025-07-14 13:03 | XMS_ITS | Encounter Summary ---
Author Organization [facility] Address [address] [place] [address] Care Team Providers Care Harness Puller Name Role Phone Velvet Pittman MD Primary Care Provider Encounter Details Date Type Department Care Team (Late st Contact Info) Description 02/01/2025 Lab Requisition [facility] - Main Lab 299 [facility] [place] [address] Omari Winters MD [address] [place] [phone] Essential (primary) hypertension Social History Tobacco Use [...] Associated Diagnosis Comments COMPLETE BLOOD COUNT Routine 02/03/2025 7:38 AM EDT Essential (primary) hypertension BASIC METABOLIC PANEL Routine 02/03/2025 7:38 AM EDT Essential (primary) hypertension documented in this encounter Results * (ABNORMAL) Basic metabolic panel (02/03/2025 7:38 AM EDT) Sodium 134 133 - 145 mmol/L LAB CHEMISTRY METHOD 02/03/2025 3:13 PM [facility] Potassium 4.1 3.5 - 5.5 mmol/L LAB CHEMISTRY METHOD 02/03/2025 3:13 PM [facility] Chloride 101 96 - 110 mmol/L LAB CHEMISTRY METHOD 02/03/2025 3:13 PM [facility] CO2 25 21 - 32 mmol/L LAB CHEMISTRY METHOD 02/03/2025 3:13 PM [facility] Anion Gap 8 3 - 11 LAB CHEMISTRY METHOD 02/03/2025 3:13 PM [facility] Glucose 94 70 - 100 mg/dL LAB CHEMISTRY METHOD 02/03/2025 3:13 PM [facility] BUN 16 5 - 25 mg/dL LAB CHEMISTRY METHOD 02/03/2025 3:13 PM [facility] Creatinine 0.68(L) 0.70 - 1.30 mg/dL LAB CHEMISTRY METHOD 02/03/2025 3:13 PM [facility] eGFR 97 >=60 mL/min/1. 73m2 LAB CHEMISTRY METHOD 02/03/2025 3:13 PM [facility] Comment:Calculation based on the Chronic Kidney Disease Epidemiology Collaboration (CKD-EPI) equation refit without adjustment for race. BUN/Creatinine Ratio 23.5 LAB CHEMISTRY METHOD 02/03/2025 3:13 PM [facility] Calcium 9.3 8.5 - 10.5 mg/dL LAB CHEMISTRY METHOD 02/03/2025 3:13 PM [facility] Blood Venous blood specimen / Unknown Venipuncture / Unknown 02/03/2025 7:38 AM EDT 02/03/2025 11:45 AM EDT us Omari Winters MD LAB BLOOD ORDERABLES Final Result [facility] [address] [place] [address], * (ABNORMAL) Complete blood count (02/03/2025 7:38 AM EDT) [facility] Signature WBC 9.0 4.8 - 10.8 K/mcL LAB HEMETOLOGY METHOD 02/03/2025 1:01 PM EDT [facility] RBC 3.70(L) 4.50 - 5.50 M/mcL LAB HEMETOLOGY METHOD 02/03/2025 1:01 PM EDT [facility] Hemoglobin 11.9(L) 13.5 - 17.5 g/dL LAB HEMETOLOGY METHOD 02/03[facility]25 [facility] Hematocrit 35.7(L) 42.0 - 54.0 % LAB HEMETOLOGY METHOD 02/03/2025 1:01 [facility] MCV 96.5 79.0 - 98.0 FL LAB HEMETOLOGY METHOD 02/03/2025 1:01 PM [facility] MCH 32.2(H) 27.0 - 32.0 pcg LAB HEMETOLOGY METHOD 02/03/2025 1:01 PM [facility] MCHC 33.3 32.0 - 37.0 g/dL LAB HEMETOLOGY METHOD 02/03/2025 1:01 PM [facility] RDW 13.2 11.0 - 15.0 % LAB HEMETOLOGY METHOD 02/03/2025 1:01 PM [facility] Platelets 188 130 - 400 K/mcL LAB HEMETOLOGY METHOD 02/03/2025 1:01 PM [facility] MPV 11.3(H) 7.0 - 11.0 FL LAB HEMETOLOGY METHOD 02/03/2025 1:01 PM [facility] NRBC 0.0 <1.0 % LAB HEMETOLOGY METHOD 02/03/2025 1:01 PM EDT [facility] NRBC Absolute 0.00 <0.10 K/mcL LAB HEMETOLOGY METHOD 02/03/2025 1:01 PM EDT [facility] Blood Venous blood specimen / Unknown Venipuncture / Unknown 02/03/2025 7:38 AM EDT 02/03/2025 11:45 AM EDT us Omari Winters MD LAB BLOOD ORDERABLES Final Result [facility] [address] [place] [address], documented in this encounter Visit Diagnoses Diagnosis Essential (primary) hypertension Unspecified essential hypertension documented in this encounter Care Teams Harness Puller Relationship Specialty Start Date End Date Velvet Pittman MD [address] [place] [phone] PCP - General Internal Medicine 06/07/24 documented as of this encounter
--- OUTSIDE RECORDS SUMMARY | 2025-07-14 13:03 | XMS_ITS | Encounter Summary ---
Author Organization [facility] Address [address] [place] [address] Care Team Providers Care Jd Edwards Developer Name Role Phone Velvet Pittman MD Primary Care Provider [phone] Encounter Details Date Type Department Care Team (Late st Contact Info) Description 01/16/2025 Lab Requisition [facility] - Main Lab 299 [facility] [place] [address] Omari Winters MD [address] [place] [id number] Type 2 diabetes mellitus without complications (CMS/HCC V24, CMS/HCC V28); Cerebral infarction, unspecified (CMS/HCC V24, CMS/HCC V28) Social History Tobacco Use Types Packs/Day Years [...] Associated Diagnosis Comments COMPLETE BLOOD COUNT Routine 01/16/2025 8:46 AM EDT Type 2 diabetes mellitus without complications (CMS/HCC V24, CMS/HCC V28) Cerebral infarction, unspecified (CMS/HCC V24, CMS/HCC V28) BASIC METABOLIC PANEL Routine 01/16/2025 8:46 AM EDT Type 2 diabetes mellitus without complications ([facility] [place]24, [facility] V28) Cerebral infarction, unspecified ([facility] [place]24, [facility] V28) documented in this encounter Results * (ABNORMAL) Basic metabolic panel (01/16/2025 8:46 AM EDT) Sodium 137 133 - 145 mmol/L LAB CHEMISTRY METHOD 01/16/2025 12:43 PM [facility] Potassium 3.5 3.5 - 5.5 mmol/L LAB CHEMISTRY METHOD 01/16/2025 12:43 PM [facility] Chloride 105 96 - 110 mmol/L LAB CHEMISTRY METHOD 01/16/2025 12:43 PM [facility] CO2 24 21 - 32 mmol/L LAB CHEMISTRY METHOD 01/16/2025 12:43 PM [facility] Anion Gap 8 3 - 11 LAB CHEMISTRY METHOD 01/16/2025 12:43 PM [facility] Glucose 104(H) 70 - 100 mg/dL LAB CHEMISTRY METHOD 01/16/2025 12:43 PM [facility] BUN 8 5 - 25 mg/dL LAB CHEMISTRY METHOD 01/16/2025 12:43 PM [facility] Creatinine 0.63(L) 0.70 - 1.30 mg/dL LAB CHEMISTRY METHOD 01/16/2025 12:43 PM [facility] eGFR 99 >=60 mL/min/1. 73m2 LAB CHEMISTRY METHOD 01/16/2025 12:43 PM [facility] Comment:Calculation based on the Chronic Kidney Disease Epidemiology Collaboration (CKD-EPI) equation refit without adjustment for race. BUN/Creatinine Ratio 12.7 LAB CHEMISTRY METHOD 01/16/2025 12:43 PM [facility] Calcium 9.2 8.5 - 10.5 mg/dL LAB CHEMISTRY METHOD 01/16/2025 12:[address] [facility] Blood Venous blood specimen / Unknown Venipuncture / Unknown 01/16/2025 8:46 AM EDT 01/16/2025 11:00 AM EDT us Omari Winters MD LAB BLOOD ORDERABLES Final Result [facility] [address] [place] [address], * (ABNORMAL) Complete blood count (01/16/2025 8:46 AM EDT) WBC 8.5 4.8 - 10.8 K/mcL LAB HEMETOLOGY METHOD 01/16/2025 11:[address] [facility] RBC 3.50(L) 4.50 - 5.50 M/mcL LAB HEMETOLOGY METHOD 01/16/2025 11:[address] [facility] Hemoglobin 11.2(L) 13.5 - 17.5 g/dL LAB HEMETOLOGY METHOD 01/16/2025 11:[address] [facility] Hematocrit 33.8(L) 42.0 - 54.0 % LAB HEMETOLOGY METHOD 01/16/2025 11:[address] [facility] MCV 97.7 79.0 - 98.0 FL LAB HEMETOLOGY METHOD 01/16/2025 11:[address] [facility] MCH 32.4(H) 27.0 - 32.0 pcg LAB HEMETOLOGY METHOD 01/16/2025 11:[address] [facility] MCHC 33.1 32.0 - 37.0 g/dL LAB HEMETOLOGY METHOD [facility]2025 [facility] RDW 13.3 11.0 - 15.0 % LAB HEMETOLOGY METHOD 01/16/2025 11:[address] [facility] Platelets 184 130 - 400 K/mcL LAB HEMETOLOGY METHOD 01/16/2025 11:[address] [facility] MPV 11.2(H) 7.0 - 11.0 FL LAB HEMETOLOGY METHOD 01/16/2025 11:[address] [facility] NRBC 0.0 <1.0 % LAB HEMETOLOGY METHOD 01/16/2025 11:[address] [facility] NRBC Absolute 0.00 <0.10 K/mcL LAB HEMETOLOGY METHOD 01/16/2025 11:[address] [facility] Blood Venous blood specimen / Unknown Venipuncture / Unknown 01/16/2025 8:46 AM EDT 01/16/2025 11:00 AM EDT Omari Winters MD LAB BLOOD ORDERABLES Final Result [facility] [address] [place] [address], documented in this encounter Visit Diagnoses Diagnosis Type 2 diabetes mellitus without complications (CMS/HCC V24, CMS/HCC V28) Cerebral infarction, unspecified (CMS/HCC V24, CMS/HCC V28) documented in this encounter Care Teams Jd Edwards Developer Relationship Specialty Start Date End Date Velvet Pittman MD [address] [place] [address] PCP - General Internal Medicine 06/07/24 documented as of this encounter
--- OUTSIDE RECORDS SUMMARY | 2025-07-14 13:03 | XMS_ITS | Encounter Summary ---
Author Organization [facility] Address [address] [place] [address] Care Team Providers Care Loan Secretary Name Role Phone Velvet Pittman MD Primary Care Provider [phone] Encounter Details Date Type Department Care Team (Late st Contact Info) Description 02/16/2025 Lab Requisition [facility] - Main Lab 299 [facility] [place] [address] Omari Winters MD [address] [place] [address] Essential (primary) hypertension Social History Tobacco Use [...] Associated Diagnosis Comments COMPLETE BLOOD COUNT Routine 02/17/2025 8:10 AM EDT Essential (primary) hypertension BASIC METABOLIC PANEL Routine 02/17/2025 8:10 AM EDT Essential (primary) hypertension documented in this encounter Results * (ABNORMAL) Basic metabolic panel (02/17/2025 8:10 AM EDT) Sodium 134 133 - 145 mmol/L LAB CHEMISTRY METHOD 02/17/2025 12:[address] [facility] Potassium 4.6 3.5 - 5.5 mmol/L LAB CHEMISTRY METHOD 02/17/2025 12:[address] [facility] Chloride 101 96 - 110 mmol/L LAB CHEMISTRY METHOD 02/17/2025 12:[address] [facility] CO2 26 21 - 32 mmol/L LAB CHEMISTRY METHOD 02/17/2025 12:[address] [facility] Anion Gap 7 3 - 11 LAB CHEMISTRY METHOD 02/17/2025 12:[address] [facility] Glucose 102(H) 70 - 100 mg/dL LAB CHEMISTRY METHOD 02/17/2025 12:[address] [facility] BUN 11 5 - 25 mg/dL LAB CHEMISTRY METHOD 02/17/2025 12:[address] [facility] Creatinine 0.60(L) 0.70 - 1.30 mg/dL LAB CHEMISTRY METHOD 02/17/2025 12:[address] [facility] eGFR 101 >=60 mL/min/1. 73m2 LAB CHEMISTRY METHOD 02/17/2025 12:[address] [facility] Comment:Calculation based on the Chronic Kidney Disease Epidemiology Collaboration (CKD-EPI) equation refit without adjustment for race. BUN/Creatinine Ratio 18.3 LAB CHEMISTRY METHOD 02/17/2025 12:[address] [facility] Calcium 9.2 8.5 - 10.5 mg/dL LAB CHEMISTRY METHOD 02/17/2025 12:[address] [facility] Blood Venous blood specimen / Unknown Venipuncture / Unknown 02/17/2025 8:10 AM EDT 02/17/2025 10:22 AM EDT us Omari Winters MD LAB BLOOD ORDERABLES Final Result [facility] [address] [place] [address], * (ABNORMAL) Complete blood count (02/17/2025 8:10 AM EDT) [facility] WBC 7.9 4.8 - 10.8 K/mcL LAB HEMETOLOGY METHOD 02/17/2025 1:25 PM EDT [facility] RBC 3.80(L) 4.50 - 5.50 M/mcL LAB HEMETOLOGY METHOD 02/17/2025 1:25 PM EDT [facility] Hemoglobin 11.8(L) 13.5 - 17.5 g/dL LAB HEMETOLOGY METHOD 02/17/2025 1:25 PM EDT [facility] Hematocrit 35.8(L) 42.0 - 54.0 % LAB HEMETOLOGY METHOD 02/17/2025 1:25 PM EDT [facility] MCV 94.5 79.0 - 98.0 FL LAB HEMETOLOGY METHOD 02/17/2025 1:25 PM EDT [facility] MCH 31.1 27.0 - 32.0 pcg LAB HEMETOLOGY METHOD 02/17/2025 1:25 PM EDT [facility] MCHC 33.0 32.0 - 37.0 g/dL LAB HEMETOLOGY METHOD 02/17/2025 1:25 PM EDT [facility] RDW 13.2 11.0 - 15.0 % LAB HEMETOLOGY METHOD 02/17/2025 1:25 PM EDT [facility] Platelets 220 130 - 400 K/mcL LAB HEMETOLOGY METHOD 02/17/2025 1:25 PM EDT [facility] MPV 10.5 7.0 - 11.0 FL LAB HEMETOLOGY METHOD 02/17/2025 1:25 PM EDT [facility] NRBC 0.0 <1.0 % LAB HEMETOLOGY METHOD 02/17/2025 1:25 PM EDT [facility] NRBC Absolute 0.00 <0.10 K/mcL LAB HEMETOLOGY METHOD 02/17/2025 1:25 PM EDT [facility] Blood Venous blood specimen / Unknown Venipuncture / Unknown 02/17/2025 8:10 AM EDT 02/17/2025 10:22 AM EDT us Omari Winters MD LAB BLOOD ORDERABLES Final Result [facility] [address] [place] [address], documented in this encounter Visit Diagnoses Diagnosis Essential (primary) hypertension Unspecified essential hypertension documented in this encounter Care Teams Loan Secretary Relationship Specialty Start Date End Date Velvet Pittman MD [address] [place] [phone] PCP - General Internal Medicine 06/07/24 documented as of this encounter
--- OUTSIDE RECORDS SUMMARY | 2025-07-14 13:03 | XMS_ITS | Encounter Summary ---
Author Organization [facility] Address [address] [place] [address] Care Team Providers Care Manager Outpatient Name Role Phone Velvet Pittman MD Primary Care Provider [phone] Encounter Details Date Type Department Care Team (Late st Contact Info) Description 01/08/[address] [facility] - Main Lab 299 [facility] [place] [address] Omari Winters MD [address] [place] [phone] Hypokalemia Social History Tobacco Use Types Packs/Day Years [...] Procedure Name Priority Date/Time Associated Diagnosis Comments MAGNESIUM Routine 01/09/2025 6:38 AM EDT Hypokalemia BASIC METABOLIC PANEL Routine 01/09/2025 6:38 AM EDT Hypokalemia documented in this encounter Results * (ABNORMAL) Magnesium (01/09/2025 6:38 AM EDT) Magnesium 1.7(L) 1.9 - 2.6 mg/dL LAB CHEMISTRY METHOD 01/09/2025 11:11 AM [facility] Blood Venous blood specimen / Unknown Venipuncture / Unknown 01/09/2025 6:38 AM EDT 01/09/2025 9:34 AM EDT us Omari Winters MD LAB BLOOD ORDERABLES Final Result [facility] [address] [place] [address], [place] [phone] * (ABNORMAL) Basic metabolic panel (01/09/2025 6:38 AM EDT) Sodium 142 133 - 145 mmol/L LAB CHEMISTRY METHOD 01/09/2025 11:11 AM [facility] Potassium 3.7 3.5 - 5.5 mmol/L LAB CHEMISTRY METHOD 01/09/2025 11:11 AM [facility] Chloride 109 96 - 110 mmol/L LAB CHEMISTRY METHOD 01/09/2025 11:11 AM [facility] CO2 24 21 - 32 mmol/L LAB CHEMISTRY METHOD 01/09/2025 11:11 AM [facility] Anion Gap 9 3 - 11 LAB CHEMISTRY METHOD 01/09/2025 11:11 AM [facility] Glucose 96 70 - 100 mg/dL LAB CHEMISTRY METHOD 01/09/2025 11:11 AM [facility] BUN 8 5 - 25 mg/dL LAB CHEMISTRY METHOD 01/09/2025 11:11 AM [facility] Creatinine 0.58(L) 0.70 - 1.30 mg/dL LAB CHEMISTRY METHOD 01/09/2025 11:11 AM [facility] eGFR 102 >=60 mL/min/1. 73m2 LAB CHEMISTRY METHOD 01/09/2025 11:11 AM [facility] Comment:Calculation based on the Chronic Kidney Disease Epidemiology Collaboration (CKD-EPI) equation refit without adjustment for race. BUN/Creatinine Ratio 13.8 LAB CHEMISTRY METHOD 01/09/2025 11:11 AM EDT [facility] Calcium 8.5 8.5 - 10.5 mg/dL LAB CHEMISTRY METHOD 01/09/2025 11:11 AM EDT [facility] Blood Venous blood specimen / Unknown Venipuncture / Unknown 01/09/2025 6:38 AM EDT 01/09/2025 9:34 AM EDT us Omari Winters MD LAB BLOOD ORDERABLES Final Result [facility] [address] [place] [address], [place] [phone] documented in this encounter Visit Diagnoses Diagnosis Hypokalemia Hypopotassemia documented in this encounter Care Teams Manager Outpatient Relationship Specialty Start Date End Date Velvet Pittman MD [address] [place] [phone] PCP - General Internal Medicine 06/07/24 documented as of this encounter
--- OUTSIDE RECORDS SUMMARY | 2025-07-14 13:04 | XMS_ITS | Encounter Summary ---
Author Organization [facility] Address [address] [place] [address] Care Team Providers Care Hand Roller Name Role Phone Velvet Pittman MD Primary Care Provider [phone] Encounter Details Date Type Department Care Team (Late st Contact Info) Description 03/14/2025 Lab Requisition [facility] - Main Lab 299 [facility] [place] [address] Omari Winters MD [address] [place] [address] Essential (primary) hypertension; Unspecified atrial fibrillation (CMS/HCC V24, CMS/HCC V28) Social History Tobacco [...] Associated Diagnosis Comments COMPLETE BLOOD COUNT Routine 03/18/2025 9:34 AM EDT Essential (primary) hypertension Unspecified atrial fibrillation (CMS/HCC V24, CMS/HCC V28) BASIC METABOLIC PANEL Routine 03/18/2025 9:34 AM EDT Essential (primary) hypertension Unspecified atrial fibrillation (CMS/HCC V24, CMS/HCC V28) documented in this encounter Results * (ABNORMAL) Complete blood count (03/18/2025 9:34 AM EDT) [facility] WBC 9.8 4.8 - 10.8 K/mcL LAB HEMETOLOGY METHOD 03/18/2025 1:28 PM EDT [facility] RBC 3.90(L) 4.50 - 5.50 M/mcL LAB HEMETOLOGY METHOD 03/18/2025 1:28 PM EDT [facility] Hemoglobin 12.1(L) 13.5 - 17.5 g/dL LAB HEMETOLOGY METHOD 03/18/2025 1:28 [facility] Hematocrit 36.4(L) 42.0 - 54.0 % LAB HEMETOLOGY METHOD 03/18/2025 1:28 [facility] MCV 92.9 79.0 - 98.0 FL LAB HEMETOLOGY METHOD 03/18/2025 1:28 [facility] MCH 30.9 27.0 - 32.0 pcg LAB HEMETOLOGY METHOD 03/18/2025 1:28 [facility] MCHC 33.2 32.0 - 37.0 g/dL LAB HEMETOLOGY METHOD 03/18/2025 1:28 PM [facility] RDW 13.4 11.0 - 15.0 % LAB HEMETOLOGY METHOD 03/18/2025 1:28 [facility] Platelets 204 130 - 400 K/mcL LAB HEMETOLOGY METHOD 03/18/2025 1:28 [facility] MPV 10.9 7.0 - 11.0 FL LAB HEMETOLOGY METHOD 03/18/2025 1:28 [facility] NRBC 0.0 <1.0 % LAB HEMETOLOGY METHOD 03/18/2025 1:28 PM EDT [facility] NRBC Absolute 0.00 <0.10 K/mcL LAB HEMETOLOGY METHOD 03/18/2025 1:28 PM [facility] Blood Venous blood specimen / Unknown Venipuncture / Unknown 03/18/2025 9:34 AM EDT 03/18/2025 11:15 AM EDT us Omari Winters MD LAB BLOOD ORDERABLES Final Result [facility] [address] [place] [address], * (ABNORMAL) Basic metabolic panel (03/18/2025 9:34 AM EDT) Sodium 134 133 - 145 mmol/L LAB CHEMISTRY METHOD 03/18/2025 3:54 PM [facility] Potassium 4.0 3.5 - 5.5 mmol/L LAB CHEMISTRY METHOD 03/18/2025 3:54 PM [facility] Chloride 101 96 - 110 mmol/L LAB CHEMISTRY METHOD 03/18/2025 3:54 PM [facility] CO2 23 21 - 32 mmol/L LAB CHEMISTRY METHOD 03/18/2025 3:54 PM [facility] Anion Gap 10 3 - 11 LAB CHEMISTRY METHOD 03/18/2025 3:54 PM [facility] Glucose 122(H) 70 - 100 mg/dL LAB CHEMISTRY METHOD 03/18/2025 3:54 PM [facility] BUN 9 5 - 25 mg/dL LAB CHEMISTRY METHOD 03/18/2025 3:54 PM [facility] Creatinine 0.65(L) 0.70 - 1.30 mg/dL LAB CHEMISTRY METHOD 03/18/2025 3:54 PM [facility] eGFR 98 >=60 mL/min/1. 73m2 LAB CHEMISTRY METHOD 03/18/2025 3:54 PM EDT [facility] Comment:Calculation based on the Chronic Kidney Disease Epidemiology Collaboration (CKD-EPI) equation refit without adjustment for race. BUN/Creatinine Ratio 13.8 LAB CHEMISTRY METHOD 03/18/2025 3:54 PM EDT [facility] Calcium 9.1 8.5 - 10.5 mg/dL LAB CHEMISTRY METHOD 03/18/2025 3:54 PM EDT [facility] Blood Venous blood specimen / Unknown Venipuncture / Unknown 03/18/2025 9:34 AM EDT 03/18/2025 11:15 AM EDT Omari Winters MD LAB BLOOD ORDERABLES Final Result [facility] [address] [place] [address], documented in this encounter Visit Diagnoses Diagnosis Essential (primary) hypertension Unspecified essential hypertension Unspecified atrial fibrillation (CMS/HCC V24, CMS/HCC V28) documented in this encounter Care Teams Hand Roller Relationship Specialty Start Date End Date Velvet Pittman MD [address] [place] [phone] PCP - General Internal Medicine 06/07/24 documented as of this encounter
--- OUTSIDE RECORDS SUMMARY | 2025-07-14 13:04 | XMS_ITS | Encounter Summary ---
Author Organization [facility] Address [address] [place] [address] Care Team Providers Care Acetylene Burner Name Role Phone Velvet Pittman MD Primary Care Provider [phone] Alexandria Segura PT Unavailable [phone] Encounter Details Date Type Department Care Team (Late st Contact Info) Description 09/20/2024 Scanned Document [facility] TECH SCAN Physical Therapy, Scan Social History Tobacco Use Types Packs/Day Years Used Date Smoking Tobacco: Never Smokeless Tobacco: Never Alcohol Use Standard Drinks/Week Comments Yes 0 (1 standard drink = 0.6 oz pur e alcohol) social [facility] Utilities Answer Date Recorded In the past 12 months has [employer], gas, oil, or water [employer] threatened to shut off services in your [...] place to sleep or slept in a chcf (including now)? No 11/19/2023 Sex and Gender [...] documented as of this encounter Care Teams Acetylene Burner Relationship Specialty Start Date End Date Velvet [place]man MD [address] [place] [address] PCP - General 01/02/24 Alexandria Segura, PT [address] [address] Title CuratorChief Lending Officer Medicine and Rehabilitation 11/26/24 documented as of this encounter
--- OUTSIDE RECORDS SUMMARY | 2025-07-14 13:04 | XMS_ITS | Encounter Summary ---
Author Organization [facility] Address [address] [place] [address] Care Team Providers Care Manager Dairy Name Role Phone Velvet Pittman MD Primary Care Provider [phone] Encounter Details Date Type Department Care Team (Late st Contact Info) Description 03/07/2025 Lab Requisition [facility] - Main Lab [address] [facility] [place] [address] Omari Winters MD [address] [place] [phone] Essential (primary) hypertension Social History Tobacco Use [...] Associated Diagnosis Comments COMPLETE BLOOD COUNT Routine 03/10/2025 9:00 AM EDT Essential (primary) hypertension BASIC METABOLIC PANEL Routine 03/10/2025 9:00 AM EDT Essential (primary) hypertension documented in this encounter Results * (ABNORMAL) Basic metabolic panel (03/10/2025 9:00 AM EDT) Sodium 135 133 - 145 mmol/L LAB CHEMISTRY METHOD 03/10/2025 12:21 PM [facility] Potassium 3.9 3.5 - 5.5 mmol/L LAB CHEMISTRY METHOD 03/10/2025 12:21 PM [facility] Chloride 102 96 - 110 mmol/L LAB CHEMISTRY METHOD 03/10/2025 12:21 PM [facility] CO2 25 21 - 32 mmol/L LAB CHEMISTRY METHOD 03/10/2025 12:21 PM [facility] Anion Gap 8 3 - 11 LAB CHEMISTRY METHOD 03/10/2025 12:21 PM [facility] Glucose 140(H) 70 - 100 mg/dL LAB CHEMISTRY METHOD 03/10/2025 12:21 PM [facility] BUN 11 5 - 25 mg/dL LAB CHEMISTRY METHOD 03/10/2025 12:21 PM [facility] Creatinine 0.69(L) 0.70 - 1.30 mg/dL LAB CHEMISTRY METHOD 03/10/2025 12:21 PM [facility] eGFR 97 >=60 mL/min/1. 73m2 LAB CHEMISTRY METHOD 03/10/2025 12:21 PM [facility] Comment:Calculation based on the Chronic Kidney Disease Epidemiology Collaboration (CKD-EPI) equation refit without adjustment for race. BUN/Creatinine Ratio 15.9 LAB CHEMISTRY METHOD 03/10/2025 12:21 PM [facility] Calcium 9.2 8.5 - 10.5 mg/dL LAB CHEMISTRY METHOD 03/10/2025 12:21 PM [facility] Blood Venous blood specimen / Unknown Venipuncture / Unknown 03/10/2025 9:00 AM EDT 03/10/2025 9:58 AM EDT us Omari Winters MD LAB BLOOD ORDERABLES Final Result [facility] [address] [place] [address], * (ABNORMAL) Complete blood count (03/10/2025 9:00 AM EDT) [facility] Signature WBC 10.9(H) 4.8 - 10.8 K/mcL LAB HEMETOLOGY METHOD 03/10/2025 11:26 AM EDT [facility] RBC 4.00(L) 4.50 - 5.50 M/mcL LAB HEMETOLOGY METHOD 03/10/2025 11:26 AM EDT [facility] Hemoglobin 12.5(L) 13.5 - 17.5 g/dL LAB HEMETOLOGY METHOD 03/10/2025 11:26 AM [facility] Hematocrit 37.7(L) 42.0 - 54.0 % LAB HEMETOLOGY METHOD [facility] MCV 93.5 79.0 - 98.0 FL LAB HEMETOLOGY METHOD 03/10/2025 11:26 AM EDT [facility] MCH 31.0 27.0 - 32.0 pcg LAB HEMETOLOGY METHOD 03/10/2025 11:26 AM [facility] MCHC 33.2 32.0 - 37.0 g/dL LAB HEMETOLOGY METHOD 03/10/2025 11:26 AM EDT [facility] RDW 13.6 11.0 - 15.0 % LAB HEMETOLOGY METHOD 03/10/2025 11:26 AM EDT [facility] Platelets 194 130 - 400 K/mcL LAB HEMETOLOGY METHOD 03/10/2025 11:26 AM [facility] MPV 11.1(H) 7.0 - 11.0 FL LAB HEMETOLOGY METHOD 03/10/2025 11:26 AM EDT [facility] NRBC 0.0 <1.0 % LAB HEMETOLOGY METHOD 03/10/2025 11:26 AM EDT [facility] NRBC Absolute 0.00 <0.10 K/mcL LAB HEMETOLOGY METHOD 03/10/2025 11:26 AM EDT [facility] Blood Venous blood specimen / Unknown Venipuncture / Unknown 03/10/2025 9:00 AM EDT 03/10/2025 9:58 AM EDT us Omari Winters MD LAB BLOOD ORDERABLES Final Result [facility] [address] [place] [address], documented in this encounter Visit Diagnoses Diagnosis Essential (primary) hypertension Unspecified essential hypertension documented in this encounter Care Teams Manager Dairy Relationship Specialty Start Date End Date Velvet Pittman MD [address] [place] [phone] PCP - General Internal Medicine 06/07/24 documented as of this encounter
--- OUTSIDE RECORDS SUMMARY | 2025-07-14 13:04 | XMS_ITS | Clinical Summary ---
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 Lumbago 05/08/2024 Overview (05/08/2024): Lumbago l4-5 disc surgery and fusion dr lemus Melanoma 05/08/2024 Squamous cell carcinoma of skin 05/08/2024 Diagnosis unknown 05/08/2024 Overview (05/08/2024): Thoracic or lumbosacral neuritis or radiculitis, unspecified Thrombocytopenia 05/08/2024 Immunizations Immunization Administration Dates Next Due H1N1 Inj 07/07/2009 [...] normal coronary arteries OTHER SURGICAL HISTORY PROCEDURE: ND SUTURE INFRAPATELLAR TENDON PRIMARY; COMMENT: rt APPENDECTOMY PROCEDURE: HISTORICAL APPENDECTOMY HERNIA REPAIR PROCEDURE: HISTORICAL HERNIA REPAIR/ING; COMMENT: (left) OTHER SURGICAL HISTORY 2000 PROCEDURE: COLORECTAL CANCER,FLEX SIGMOIDOSCOPY ROTATOR CUFF REPAIR PROCEDURE: HISTORICAL ROTATOR CUFF REPAIR; COMMENT: left 2004 COLONOSCOPY W/ BIOPSIES 04/28/2006 PROCEDURE: ND COLONOSCOPY W/BIOPSY SINGLE/MULTIPLE; COMMENT: 5mm tub adenoma ESOPHAGOGASTRODUODENOSCOPY 05/09/2007 PROCEDURE: ND EGD TRANSORAL BIOPSY SINGLE/MULTIPLE; COMMENT: duo bx neg; min esoph varices PACEMAKER IMPLANT 2007 PROCEDURE: HISTORICAL PACEMAKER COLONOSCOPY 02/15/2011 PROCEDURE: HISTORICAL COLONOSCOPY; COMMENT: minimal diverticulosis, no polyps ESOPHAGOGASTRODUODENOSCOPY 02/15/2011 PROCEDURE: ND ESOPHAGOGASTRODUODENOSCOPY TRANSORAL DIAGNOSTIC; COMMENT: no varices OTHER SURGICAL HISTORY PROCEDURE: HISTORY OTHER; COMMENT: rt knee repair patella tendon APPENDECTOMY PROCEDURE: ND APPENDECTOMY TONSILLECTOMY PROCEDURE: HISTORICAL TONSILLECTOMY CHOLECYSTECTOMY 2014 PROCEDURE: HISTORICAL CHOLECYSTECTOMY; COMMENT: Done in [place] COLONOSCOPY 2015 PROCEDURE: HISTORICAL COLONOSCOPY; COMMENT: no polyps OTHER SURGICAL HISTORY PROCEDURE: ND CORRECTION HAMMERTOE; COMMENT: rt 2nd toe 2017 OTHER SURGICAL HISTORY PROCEDURE: ND ARTHRD ANT INTERBODY MIN DSC LUMBAR; COMMENT: dr lemus approx 2003 OTHER SURGICAL HISTORY PROCEDURE: HISTORICAL SQUAMOUS CELL CA; COMMENT: SCC spring 2019 left upper arm while in [place] specifics unknown 06/29 chest (in situ) 05/30 right ear (while in [place] specifics unknown margin wants to clear ) [...] DX:Hepati tis, unspecified Atrial flutter (CMS/HCC V24, CMS/HCC V28) 02/17/2007 DX:Atrial flutter (HCC) Esophageal varices without m ention of bleeding 05/11/2007 DX:Esophageal varices withou t mention of bleeding; COMMENT: Minimal at EGD 05/09/2007. Duodenal bx negative. Cirrhosis, Laennec's (CMS/HC C V24, CMS/HCC V28) 01/14/2008 DX:Cirrhosis, Laennec's (HCC ) Cardiac pacemaker in situ 04/21/2008 DX:Car diac pacemaker in situ; COMMENT: Placed mar 2008 Gallstones 07/01/2009 DX:Gallstones Thrombocytopenia (CMS/HCC V24) 12/19/2011 D X:Thrombocytopenia (HCC) Actinic keratosis, [...] left upper quadrant abdominal wall while in [place] specifics unknown by patient will have results faxed did not require lymph node investigation. History of squamous cell car cinoma of skin 12/18/2013 DX:History of squamous cell carcinoma of skin; COMMENT: SCC 06/29 chest (in situ) 05/30 right ear (while in [place] specifics unknown margin wants to clear ) 12/28 left thigh (well differentiated, invasive) History of squamous cell car cinoma of skin DX:History of squamous cell carcinoma of skin; COMMENT: SCC spring 2019 left upper arm while in [place] specifics unknown 06/29 chest (in situ) 05/30 right ear (while in [place] specifics unknown margin wants to clear ) [...] on file Sexual Orientation Not on file Last Filed Vital Signs Vital Sign Reading [...] Vaccine: 50+ Years (2 of 2 - PPSV23, PCV20, or PCV21) 05/10/2017 03/15/2017, 01/26/2015, 01/26/2015, Additional history exists Zoster Vaccines (2 of 2) 09/14/2019 07/20/2019, 03/18 Falls Risk Assessment 06/15/2022 Medicare Annual Wellness Visit 06/15/2022 Social Influencers of Health Screening 06/15/2022 Diabetes: Annual Urine Albumin-Creatinine Ratio (uACR) 06/07/2024 Depression Screening 07/17/2024 COVID-19 Vaccine ( season) 2025 05/10/2022, 05/20/2021, 09/28/2020, Additional history exists Influenza Vaccine (#1) 2025 , 04/17/2023, 04/29/2022, Additional history exists Diabetes: Blood Sugar Control Test (HGBA1C) 07/02/2025 12/31/2024, 11/12/2024, 08/03/2023, Additional history exists Diabetes: Annual GFR (Glomerular Filtration Rate) 04/07/2026 04/07/2025, 03/31/2025, 03/26/2025, Additional history exists Hypertension/CHF/CAD Annual BMP Blood Test 04/07/2026 04/07/2025, 03/31/2025, 03/26/2025, Additional history exists Colorectal Cancer Screening: Colonoscopy 07/04/2026 07/04/2016 DTaP,Tdap,and Td Vaccines (5 - Td or Tdap) 07/07/2027 07/07/2017, 04/06/2017, 04/06/2007, Additional history exists Cholesterol Screening (Lipid Panel) 10/06/2028 10/07/2023, 12/22/2020 Hepatitis C Screening Completed 09/08/2001 RSV Immunization Adult Patients Completed 06/23/2023 Abdominal Aortic Aneurysm (AAA) Screen Discontinued 06/07/2024 HIB Vaccines Aged Out No longer [...] Procedure Name Priority Date/Time Associated Diagnosis Comments BASIC METABOLIC PANEL Routine 04/07/2025 8:09 AM EDT Essential (primary) hypertension Unspecified atrial fibrillation (CMS/HCC V24, CMS/HCC V28) HEMOGLOBIN A1C Routine 12/31/2024 6:26 AM EDT Unspecified atrial fibrillation (CMS/HCC V24, CMS/HCC V28) Other cerebrovascular disease Essential (primary) hypertension Type 2 diabetes mellitus without complications (CMS/HCC V24, CMS/HCC V28) VAS US DUPLEX AAA SCREENING Routine 06/07/2024 10:53 AM EST Screening for AAA (abdominal aortic aneurysm) LIPID PANEL Routine 12/22/2020 COLONOSCOPY Routine 07/04/2016 HEPATITIS C SCREENING Routine 09/08/2001 from Last 3 Months or Most Recently Relevant to Health Maintenance Results * (ABNORMAL) Basic metabolic panel (04/07/2025 8:09 AM EDT) Sodium 134 133 - 145 mmol/L LAB CHEMISTRY METHOD 04/07/2025 1:00 PM [facility] Potassium 3.8 3.5 - 5.5 mmol/L LAB CHEMISTRY METHOD 04/07/2025 1:00 PM [facility] Chloride 102 96 - 110 mmol/L LAB CHEMISTRY METHOD 04/07/2025 1:00 PM [facility] CO2 23 21 - 32 mmol/L LAB CHEMISTRY METHOD 04/07/2025 1:00 PM [facility] Anion Gap 9 3 - 11 LAB CHEMISTRY METHOD 04/07/2025 1:00 PM [facility] Glucose 107(H) 70 - 100 mg/dL LAB CHEMISTRY METHOD 04/07/2025 1:00 PM [facility] BUN 9 5 - 25 mg/dL LAB CHEMISTRY METHOD 04/07/2025 1:00 PM EDT [facility] Creatinine 0.46(L) 0.70 - 1.30 mg/dL LAB CHEMISTRY METHOD 04/07/2025 1:00 PM EDT [facility] eGFR 109 >=60 mL/min/1. 73m2 LAB CHEMISTRY METHOD 04/07/2025 1:00 PM EDT [facility] Comment:Calculation based on the Chronic Kidney Disease Epidemiology Collaboration (CKD-EPI) equation refit without adjustment for race. BUN/Creatinine Ratio 19.6 LAB CHEMISTRY METHOD 04/07/2025 1:00 PM EDT [facility] Calcium 9.3 8.5 - 10.5 mg/dL LAB CHEMISTRY METHOD 04/07/2025 1:00 PM EDT [facility] Blood Venous blood specimen / Unknown Venipuncture / Unknown 04/07/2025 8:09 AM EDT 04/07/2025 10:44 AM EDT us Omari Winters MD LAB BLOOD ORDERABLES Final Result [facility] [address] [place] [address], * (ABNORMAL) Hemoglobin A1c (12/31/2024 6:26 AM EDT) Hemoglobin A1C 6.7(H) <6.5 % LAB CHEMISTRY METHOD 12/31/2024 10:44 AM EDT [facility] Mean Bld Glu Estim. 146 mg/dL LAB CHEMISTRY METHOD 12/31/2024 10:44 AM EDT [facility] Blood Venous blood specimen / Unknown Venipuncture / Unknown 12/31/2024 6:26 AM EDT 12/31/2024 7:40 AM EDT us Omari Winters MD LAB BLOOD ORDERABLES Final Result [facility] [address] [place] [address], * Vascular US abdominal aorta aneurysm (AAA) screening (06/07/2024 10:53 AM EST) Anatomical Region Laterality Modality Vascular, Abdomen Ultrasound 06/07/2024 11:5 7 AM EST Impressions 06/07/2024 12:00 PM EST The abdominal aorta is normal in caliber, without evidence of aneurysm. A small to moderate amount of atherosclerotic plaque is noted. Code 81986 [facility] G9551 -------- FINAL REPORT -------- Dictated By: David Crawford Dictated Date: 06/07/2024 11:57 ET Assigned Physician: David Crawford Reviewed and Electronically Signed By: David Crawford Signed Date: 06/07/2024 12:00 ET Workstation ID: [id number] Transcribed By: Self Edit Transcribed Date: 06/07/2024 [...] amount of atherosclerotic plaque is noted. Code 42696 CT [facility] G9551 -------- FINAL REPORT -------- Dictated By: David Crawford Dictated Date: 06/07/2024 11:57 ET Assigned Physician: David Crawford Reviewed and Electronically Signed By: David Crawford Signed Date: 06/07/2024 12:00 ET Workstation ID: [id number] Transcribed By: Self Edit Transcribed Date: 06/07/2024 11:57 ET Velvet Pittman MD CV VASCULAR PROCEDURES Final R esult * (ABNORMAL) Lipid panel (12/22/2020) [facility] LDL/HDL Ratio 3 0 - 4 Triglycerides 100 0 - 150 mg/dL Cholesterol 196 0 - 200 mg/dL HDL 69 >=40 mg/dL LDL Cholesterol 107(A) 0 - 100 mg/dL Blood Venous blood specimen / Unknown Result [facility] LAB BLOOD ORDERABLES Rosie l Result * Colonoscopy (07/04/2016) [facility] Colonoscopy no interpretation , abstracted Anatomical Region Laterality Modality Other Result [facility] HEALTH MAINTENANCE Final Result * Hepatitis C Screening (09/08/2001) [facility] Hepatitis C Screening abstracted Result [facility] HEALTH MAINTENANCE Final Result from Last 3 Months or Most Recently Relevant to Health Maintenance Insurance MEDICARE [facility] BRE[place] [id number] Care Teams Children Teacher Relationship Specialty Start Date End Date Velvet Pittman MD [address] [place] [phone] PCP - General Internal Medicine 06/07/24
--- OUTSIDE RECORDS SUMMARY | 2025-07-14 13:04 | XMS_ITS | Encounter Summary ---
Author Organization [facility] Address [address] [place] [address] Care Team Providers Care Mechanical Engineering Draftsperson Name Role Phone Velvet Pittman MD Primary Care Provider [phone] Alexandria Segura PT Unavailable [phone] Encounter Details Date Type Department Care Team (Late st Contact Info) Description 10/14/2024 Scanned Document [facility] CHICLE GRINDER FEEDER SCAN Physical Therapy, Scan Social History Tobacco Use Types Packs/Day Years Used Date Smoking Tobacco: Never Smokeless Tobacco: Never Alcohol Use Standard Drinks/Week Comments Yes 0 (1 standard drink = 0.6 oz pur e alcohol) social [facility] Utilities Answer Date Recorded In the past 12 months has [employer], gas, oil, or water edulio threatened to shut off services in your [...] place to sleep or slept in a half-way (including now)? No 11/19/2023 Sex and Gender [...] documented as of this encounter Care Teams Mechanical Engineering Draftsperson Relationship Specialty Start Date End Date Velvet Pittman MD [address] [place] [phone] PCP - General 01/02/24 Alexandria Segura, PT [address] [address] Blister Packing Machine TenderYard Crane Operator Medicine and Rehabilitation 11/26/24 documented as of this encounter
--- OUTSIDE RECORDS SUMMARY | 2025-07-14 13:04 | XMS_ITS | Encounter Summary ---
Author Organization [facility] Address [address] [place] [address] Care Team Providers Care Manager Event Name Role Phone Velvet Pittman MD Primary Care Provider [phone] Encounter Details Date Type Department Care Team (Late st Contact Info) Description 02/21/2025 Lab Requisition [facility] - Main Lab [address] [facility] [place] [address] Omari Winters MD [address] [place] [phone] Essential (primary) hypertension; Elevation of levels of lactic acid dehydrogenase (LDH) Social History Tobacco Use Types Packs/Day Years [...] Associated Diagnosis Comments COMPLETE BLOOD COUNT Routine 02/24/2025 7:06 AM EDT Essential (primary) hypertension Elevation of levels of lactic acid dehydrogenase (LDH) HEPATIC FUNCTION PANEL Routine 02/24/2025 7:06 AM EDT Essential (primary) hypertension Elevation of levels of lactic acid dehydrogenase (LDH) BASIC METABOLIC PANEL Routine 02/24/2025 7:06 AM EDT Essential (primary) hypertension Elevation of levels of lactic acid dehydrogenase (LDH) documented in this encounter Results * (ABNORMAL) Hepatic function panel (02/24/2025 7:06 AM EDT) Total Protein 7.0 6.0 - 8.0 g/dL LAB CHEMISTRY METHOD 02/24/2025 11:[address] [facility] Albumin 3.1(L) 3.2 - 5.0 g/dL LAB CHEMISTRY METHOD 02/24/2025 11:46 AM [facility] Total Bilirubin 0.4 0.0 - 1.4 mg/dL LAB CHEMISTRY METHOD 02/24/2025 11:46 AM [facility] Bilirubin, Direct 0.2 0.0 - 0.3 mg/dL LAB CHEMISTRY METHOD 02/24/2025 11:46 AM [facility] Bilirubin, Indirect 0.2 0.0 - 1.1 mg/dL LAB CHEMISTRY METHOD 02/24/2025 11:46 AM [facility] ALT (SGPT) 24 10 - 60 unit/L LAB CHEMISTRY METHOD 02/24/2025 11:46 AM [facility] AST (SGOT) 15 10 - 42 unit/L LAB CHEMISTRY METHOD 02/24/2025 11:46 AM [facility] Alkaline Phosphatase 111 42 - 121 unit/L LAB CHEMISTRY METHOD 02/24/2025 11:46 AM [facility] Blood Venous blood specimen / Unknown Venipuncture / Unknown 02/24/2025 7:06 AM EDT 02/24/2025 10:33 AM EDT us Omari Winters MD LAB BLOOD ORDERABLES Final Result [facility] [address] [place] [address], [place] [phone] * (ABNORMAL) Basic metabolic panel (02/24/2025 7:06 AM EDT) Sodium 136 133 - 145 mmol/L LAB CHEMISTRY METHOD 02/24/2025 11:46 AM [facility] Potassium 4.6 3.5 - 5.5 mmol/L LAB CHEMISTRY METHOD 02/24/2025 11:46 AM [facility] Chloride 104 96 - 110 mmol/L LAB CHEMISTRY METHOD 02/24/2025 11:46 AM [facility] CO2 28 21 - 32 mmol/L LAB CHEMISTRY METHOD 02/24/2025 11:46 AM [facility] Anion Gap 4 3 - 11 LAB CHEMISTRY METHOD 02/24/2025 11:46 AM [facility] Glucose 97 70 - 100 mg/dL LAB CHEMISTRY METHOD 02/24/2025 11:46 AM [facility] BUN 9 5 - 25 mg/dL LAB CHEMISTRY METHOD 02/24/2025 11:46 AM [facility] Creatinine 0.63(L) 0.70 - 1.30 mg/dL LAB CHEMISTRY METHOD 02/24/2025 11:46 AM [facility] eGFR 99 >=60 mL/min/1. 73m2 LAB CHEMISTRY METHOD 02/24/2025 11:46 AM [facility] Comment:Calculation based on the Chronic Kidney Disease Epidemiology Collaboration (CKD-EPI) equation refit without adjustment for race. BUN/Creatinine Ratio 14.3 LAB CHEMISTRY METHOD 02/24/2025 11:46 AM [facility] Calcium 9.4 8.5 - 10.5 mg/dL LAB CHEMISTRY METHOD 02/24/2025 11:46 AM [facility] Blood Venous blood specimen / Unknown Venipuncture / Unknown 02/24/2025 7:06 AM EDT 02/24/2025 10:33 AM EDT Omari Winters MD LAB BLOOD ORDERABLES Final Result [facility] [address] [place] [address], [place] [phone] * (ABNORMAL) Complete blood count (02/24/2025 7:06 AM EDT) WBC 8.6 4.8 - 10.8 K/mcL LAB HEMETOLOGY METHOD 02/24/2025 11:[address] [facility] RBC 3.70(L) 4.50 - 5.50 M/mcL LAB HEMETOLOGY METHOD 02/24/2025 11:[address] [facility] Hemoglobin 11.2(L) 13.5 - 17.5 g/dL LAB HEMETOLOGY METHOD 02/24/2025 11:[address] [facility] Hematocrit 34.9(L) 42.0 - 54.0 % LAB HEMETOLOGY METHOD 02/24/2025 11:[address] [facility] MCV 95.4 79.0 - 98.0 FL LAB HEMETOLOGY METHOD 02/24[facility]2025 [facility] MCH 30.6 27.0 - 32.0 pcg LAB HEMETOLOGY METHOD 02/24/2025 11:[address] [facility] MCHC 32.1 32.0 - 37.0 g/dL LAB HEMETOLOGY METHOD 02/24/2025 11:[address] [facility] RDW 13.2 11.0 - 15.0 % LAB HEMETOLOGY METHOD 02/24/2025 11:[facility] Platelets 208 130 - 400 K/mcL LAB HEMETOLOGY METHOD 02/24/2025 11:[address] [facility] MPV 10.6 7.0 - 11.0 FL LAB HEMETOLOGY METHOD 02/24/2025 11:[address] [facility] NRBC 0.0 <1.0 % LAB HEMETOLOGY METHOD 02/24/2025 11:[address] [facility] NRBC Absolute 0.00 <0.10 K/mcL LAB HEMETOLOGY METHOD 02/24/2025 11:[address] [facility] Blood Venous blood specimen / Unknown Venipuncture / Unknown 02/24/2025 7:06 AM EDT 02/24/2025 10:33 AM EDT us Omari Winters MD LAB BLOOD ORDERABLES Final Result [facility] [address] [place] [address], documented in this encounter Visit Diagnoses Diagnosis Essential (primary) hypertension Unspecified essential hypertension Elevation of levels of lactic acid dehydrogenase (LDH) documented in this encounter Care Teams Manager Event Relationship Specialty Start Date End Date Velvet Pittman MD [address] [place] [id number] PCP - General Internal Medicine 06/07/24 documented as of this encounter
--- OUTSIDE RECORDS SUMMARY | 2025-07-14 13:04 | XMS_ITS | Clinical Summary ---
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 Name Role Phone Velvet Pittman MD Primary Care Provider [phone] Alexandria Segura PT Unavailable [phone] Allergies Active Allergy Reactions Criticality Noted Date Comments Bacitracin Itching Low 05/08/2024 itx Sulfamethoxazole-Trimeth oprim Rash/Dermatitis Low 11/18/2023 Hydromorphone Other (See Comments) Medium 12/17/2023 Aggression and confusion per Morphine Delirium/Confusion/ Psychosis Low 11/22/2023 Per , makes patient loopy Medications Blood Glucose Monitoring Suppl (OneToBag Borrow or Steal Verio Flex System) w/Device KitIndications:Ty pe 2 [...] Hypophosphatemia 11/29/2023 12/06/2023 Encephalopathy acute 11/19/2023 024 Social History Tobacco Use Types Packs/Day Years Used Date Smoking Tobacco: Never Smokeless Tobacco: Never Tobacco Cessation:Counseling Given: Not Answered Alcohol Use Standard Drinks/Week Comments Yes 0 (1 standard drink = 0.6 oz pur e alcohol) social C Utilities Answer Date Recorded In the past 12 months has th e [employer], gas, oil, or water [employer] threatened to shut off services in your [...] place to sleep or slept in a detention (including now)? No 11/19/2023 Housing Stability Vital Sign Answer Jimmie e Recorded In the last 12 months, was t here a time when you were not able to pay the mortgage or rent on time? No 11/12/2024 In the past 12 months, how m any times have you moved where you were living? 0 11/12/2024 At any time in the past 12 m [facility], were you homeless or living in a detention (including now)? No 11/12/2024 Sex and Gender [...] , 04/05/2021, Additional history exists COVID-19 Vaccine ( - 2024- season) 2025 Hemoglobin A1C 07/02/2025 12/31/2024, 11/12/2024 Creatinine with GFR 12/28/2025 12/28/2024, 12/27/2024, 12/23/2024, Additional history exists Advance Care Planning Completed 12/27/2024 Hepatitis B Vaccines Aged Out No long er eligible based on patient's age to complete this topic Medical Devices Implanted Type Area C D Reactor Operator Device Identifier Shelf Expiration Date Model / Serial / Lot [id number] Cage Spinal 51-71mm 16mm X-Mesh 0d Sm Posterior Expand - [id number] Implanted:Qty: 1 on 11/27/2023 by Dewey Price MD at [facility] Cage N/A: Spine Lumbar DEPUY SYNTHES - A DARRYL AND [id number] / / [id number] Checo Spinal Light Grn 500mm 5.5/3.5mm Matrix Taper Ti X Hard - [id number] Implanted:Qty: 1 on 11/27/2023 by Dewey Price MD at [facility] Nail/Checo N/A: Spine Lumbar DEPUY SYNTHES - A DARRYL AND 633.190 / / 633.364 Transconnector Checo 62-90mm 5.5mm 6mm Matrix 8 Spine Pdcl - [id number] Implanted:Qty: 1 on 11/27/2023 by Dewey Price MD at [facility] Nail/Checo N/A: Spine Lumbar DEPUY SYNTHES - A DARRYL AND 633.364 / / 633.347 Transconnector Checo 47-62mm 5.5mm 6mm Matrix 7 Spine Pdcl - [id number] Implanted:Qty: 1 on 11/27/2023 by Dewey Price MD at [facility] Nail/Checo N/A: Spine Lumbar DEPUY SYNTHES - A DARRYL AND .633.347 / / [id number] Pacemaker Cardiac Thk6mm Assurity 1 Chamber Pls Gntr Is-1-07/04/2017 Implanted:Qty: 1 on 07/04/2017 Pacemaker [employer] PM12 40 / [id number] / [id number] Screw Bone Spine Jacky Vpr Xpdm 45mm Ti 8mm Pa Fix Angle - [id number] Implanted:Qty: 2 on 11/27/2023 by Dewey Price MD at [facility] Spine N/A: Spine Lumbar DEPUY SYNTHES - A DARRYL AND [id number] / / [id number] Screw Set Ti Spine 1 Inner Vpr Nonst 5.5 Mm Checo - [id number] Implanted:Qty: 10 on 11/27/2023 by Dewey Price MD at [facility] Spine N/A: Spine Lumbar DEPUY SYNTHES - A DARRYL AND [id number] / / [id number] Screw Bone Spine Jacky Vpr Xpdm 50mm Ti 8mm Pa Fix Angle - [id number] Implanted:Qty: 8 on 11/27/2023 by Dewey Price MD at [facility] Spine N/A: Spine Lumbar DEPUY SYNTHES - A DARRYL AND [id number] / / [id number] Screw Bone Spine Jacky 55mm Ti 8mm Pa Fix Angle Fenestrate - [id number] Implanted:Qty: 2 on 11/27/2023 by Dewey Price MD at [facility] Spine N/A: Spine Lumbar DEPUY SYNTHES - A DARRYL AND [id number] / / [id number] Graft Bone Osteoamp Xl Algrf Cmpr Sponge 65n55w0tf - [id number] Implanted:Qty: 1 on 11/27/2023 by Dewey Price MD at [facility] Tissue N/A: Back [employer] 02/01/2028 [id number] / [id number] / [id number] Patch Dural 3x1in Thk3.5mm Crnmxf Drmtrx-Onlay Plus Npor - [id number] Implanted:Qty: 1 on 11/27/2023 by Dewey Price MD at [facility] Tissue N/A: Spine Lumbar TITA CRANIOMAXILLOFACI AL - [id number] 03/16/2026 [id number] / / [id number] Filler Bone Void 10cc Dbx Algrf Frzdr Putty - [id number] Implanted:Qty: 1 on 11/27/2023 by Dewey Price MD at [facility] Void Filler N/A: Back [employer] 10/04/2025 [id number] / [id number] / [id number] Filler Bone Void 10cc Dbx Algrf Frzdr Putty - [id number] Implanted:Qty: 1 on 11/27/2023 by Dewey Price MD at [facility] Void Filler N/A: Back [employer]OU 10/05/2025 [id number] / [id number] / 07.801.100.99s Filler Bone Void 27h86w9ms Btcp Plmr Chrns Rsrb Strp Sterl - [id number] Implanted:Qty: 1 on 11/27/2023 by Dewey Price MD at [facility] Void Filler N/A: Back DEPUY SYNTHES - A DARRYL AND [id number] 09/13/2024 07.801.100 .99S / / [id number] 07.801.100.99s Filler Bone Void 08e20l5sb Btcp Plmr Chrns Rsrb Strp Sterl - [id number] Implanted:Qty: 1 on 11/27/2023 by Dewey Price MD at [facility] Void Filler N/A: Back DEPUY SYNTHES - A DARRYL AND [id number] 09/13/2024 07.801.100 .99S / / [id number] Filler Bone Void 10cc Dbx Algrf Frzdr Putty - [id number] Implanted:Qty: 1 on 11/27/2023 by Dewey Price MD at [facility] Void Filler N/A: Back [employer] 10/05/2025 [id number] / [id number] / Procedures Procedure Name Priority Date/Time Associated Diagnosis Comments COMPREHENSIVE METABOLIC PANEL Routine 12/28/2024 6:18 AM EDT HEMOGLOBIN A1C WITH ESTIMATED AVERAGE GLUCOSE Routine 11/12/2024 2:20 AM EDT from Last 3 Months or Most Recently Relevant to Health Maintenance Results * (ABNORMAL) Comprehensive Metabolic Panel (12/28/2024 6:18 AM EDT) Glucose 112(H) 65 - 99 mg/dL 12/28/2024 7:57 AM EDT [facility] Comment:Fasting: <100 mg/dL, Non-Fasting: <200 mg/dL (ADA 2005) Blood Urea Nitrogen (BUN) 15 8 - 21 mg/dL 12/28/2024 7:57 AM EDT [facility] Creatinine 0.6 0.5 - 1.3 mg/dL 12/28/2024 7:57 AM [facility] eGFR >90 >59 12/28/2024 7:57 AM [facility] Comment:CKD-EPI (2020) in mL /min/1.73 sq meters. Sodium 130(L) 136 - 145 mmol/L 12/28/2024 7:57 AM [facility] Potassium 3.9 3.4 - 5.3 mmol/L 12/28/2024 7:57 AM [facility] Chloride 100 98 - 107 mmol/L 12/28/2024 7:57 AM [facility] CO2 20(L) 22 - 33 mmol/L 12/28/2024 7:57 AM [facility] Calcium 8.9 8.7 - 10.5 mg/dL 12/28/2024 7:57 AM [facility] Alkaline Phosphatase 133(H) 45 - 128 U/L 12/28/2024 7:57 AM [facility] Aspartate Aminotrans (AST) 37 10 - 55 U/L 12/28/2024 7:57 AM [facility] Alanine Aminotrans (ALT) 26 10 - 55 U/L 12/28/2024 7:57 AM [facility] Bilirubin, Total 0.8 0.2 - 1.0 mg/dL 12/28/2024 7:57 AM [facility] Protein, Total 6.9 6.3 - 8.3 g/dL 12/28/2024 7:57 AM [facility] Albumin 2.8(L) 3.4 - 4.8 g/dL 12/28/2024 7:57 AM [facility] BUN/Creatinine Ratio 25 10.0 - 25.0 Ratio 12/28/2024 7:57 AM [facility] Globulin 4.1(H) 1.5 - 3.9 g/dL 12/28/2024 7:57 AM [facility] Albumin/Globulin Ratio 0.7(L) 1.0 - 3.0 Ratio 12/28/2024 7:57 AM [facility] Anion Gap 10 7 - 17 12/28/2024 7:57 AM [facility] Blood Blood specimen / Unknown 12/28/2024 6:18 AM EDT 12/28/2024 7:03 AM EDT us Carrie Cardona MD LAB BLOOD ORDERABLES Final Result Performing Organization Address [facility] [place] [address], [place] [address] * (ABNORMAL) Hemoglobin A1c with Estimated Average Glucose (11/12/2024 2:20 AM EDT) Hemoglobin A1C 6.7(H) <5.7 % 11/12/2024 3:09 AM EDT [facility] Comment: A1c% Interpretation 5.7 - 6.0 Increase risk of diabetes 6.1 - 6.4 Higher risk of diabetes > or = 6.5 Consistent with diabetes Diabetes Care, 33(Supp 1):S1-S61, 2010 Estimated Average Glucose 146 mg/dL 11/12/2024 3:09 AM EDT [facility] Blood Blood specimen / Unknown 11/12/2024 2:20 AM EDT 11/12/2024 2:37 AM EDT Joi Melendrez APRN LAB BLOOD ORDERABLES F inal Result Performing Organization Address [facility] [place] [address], [place] [address] from Last 3 Months or Most Recently Relevant to Health Maintenance Insurance MEDICARE PART A & B [facility] BLUE CROSS OUT OF [facility] MEDICARE PART A & B Advance Directives Documents on File Type Date Recorded 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
--- OUTSIDE RECORDS SUMMARY | 2025-07-14 13:04 | XMS_ITS | Patient Health Record ---
Author Organization [facility] Address [address] [place] [id number] Care Team Providers Care Porcelain Waxer Name Role Phone [facility] Provider Allergies No Known Allergies Results Component Value Reference Range Notes Hemoglobin [id number] Reviewed date:04/18/2025 02:43:39 PM Interpretation: Performing Lab:[facility], [address] [facility], Phone - [phone], Director - Yahir Notes/Report: Hemoglobin A1c 6.5 4.8-5.6 % . Prediabetes: 5.7 - 6.4 Diabetes: >6.4 Glycemic control for adults with diabetes: <7.0 Comp. Metabolic Panel (14)-3 46853 Reviewed date:04/18/2025 02:43:39 PM Interpretation: Performing Lab:[facility], [address] [facility], Phone - [phone], Director - Yahir Notes/Report: Glucose 86 70-99 mg/dL BUN 24 8-27 mg/dL Creatinine 0.58 0.76-1.27 mg/dL eGFR 102 >59 mL/min/1.73 BUN/Creatinine Ratio 41 10-24 Sodium 135 134-144 mmol/L Potassium 4.4 3.5-5.2 mmol/L Chloride 100 96-106 mmol/L Carbon Dioxide, Total 17 20-29 mmol/L Calcium 10.0 8.6-10.2 mg/dL Protein, Total 7.5 6.0-8.5 g/dL Albumin 3.9 3.8-4.8 g/dL Globulin, Total 3.6 1.5-4.5 g/dL Bilirubin, Total 0.5 0.0-1.2 mg/dL Alkaline Phosphatase 93 47-123 IU/L AST (SGOT) 20 0-40 IU/L ALT (SGPT) 18 0-44 IU/L Hemoglobin [id number] Reviewed date:06/30/2025 11:43:07 AM Interpretation: Performing Lab:[facility] [place], [address] [place] [address], Phone - [phone], Director - Yahir Notes/Report: Hemoglobin A1c 6.5 4.8-5.6 % . Prediabetes: 5.7 - 6.4 Diabetes: >6.4 Glycemic control for adults with diabetes: <7.0 Vitamin D, [id number] Reviewed date:06/30/2025 11:43:07 AM Interpretation: Performing Lab:[facility] [place], [address] [place] [address], Phone - [phone], Director - Yahir Notes/Report: Vitamin D, 25-Hydroxy 36.7 30.0-100.0 ng/mL Vitamin D deficiency has been defined by the [place] [employer] and an Endocrine Society practice guideline as a level of serum 25-OH vitamin D less than 20 ng/mL (1,2). The Endocrine Society went on to further define vitamin D insufficiency as a level between 21 and 29 ng/mL (2). 1. IOM ([place] [employer]). 2010. Dietary reference intakes for calcium and D. [place]: The National Academies Press. 2. Amelia MF, Ryan NC, Jenna SO, et al. Evaluation, treatment, and prevention of vitamin D deficiency: an Endocrine Society clinical practice guideline. JCEM. 2010; 96(7):1911-30. Comp. Metabolic Panel (14)-3 11162 Reviewed date:06/30/2025 11:43:07 AM Interpretation: Performing Lab:[facility] [place], [address] [place] [address], [place], Phone - [phone], Director - Yahir Notes/Report: Glucose 91 70-99 mg/dL BUN 12 8-27 mg/dL Creatinine 0.79 0.76-1.27 mg/dL eGFR 93 >59 mL/min/1.73 BUN/Creatinine Ratio 15 10-24 Sodium 135 134-144 mmol/L Potassium 4.8 3.5-5.2 mmol/L Chloride 99 96-106 mmol/L Carbon Dioxide, Total 18 20-29 mmol/L Calcium 9.4 8.6-10.2 mg/dL Protein, Total 7.2 6.0-8.5 g/dL Albumin 3.9 3.8-4.8 g/dL Globulin, Total 3.3 1.5-4.5 g/dL Bilirubin, Total 0.4 0.0-1.2 mg/dL Alkaline Phosphatase 92 47-123 IU/L AST (SGOT) 21 0-40 IU/L ALT (SGPT) 15 0-44 IU/L LP+Non-HDL Cholesterol-[id number] 5 Reviewed date:06/30/2025 11:43:07 AM Interpretation: Performing Lab:[facility] [place], [address] [facility], [place], Phone - [phone], Director - Yahir Notes/Report: Cholesterol, Total 118 100-199 mg/dL Triglycerides 98 0-149 mg/dL HDL Cholesterol 54 >39 mg/dL VLDL Cholesterol Tyler 18 5-40 mg/dL LDL Chol Calc (NIH) 46 0-99 mg/dL Non-HDL Cholesterol 64 0-129 mg/dL Phosphatidylethanol (PEth)-7 55194 Reviewed date:06/30/2025 11:43:07 AM Interpretation: Performing Lab:[facility] [place], [address] [facility], [place], Phone - [phone], Director - Yahir Notes/Report: PHOSPHATIDYLETHANOL Negative Phosphatidylethanol (PEth) Negative Analyzed compound: PEth 16:0/18:1. 7-emodhmrlm-5-oleoyl- dh-chyxsgu-0-phosphoe thanol. Analysis performed by Liquid Chromatography with [...] developed and its performance characteristics determined by [employer]. It has not been cleared or approved by the Food and Drug Administration. Urinalysis, Complete-[id number] Reviewed date:07/01/2025 05:26:36 PM Interpretation: Performing Lab:[facility], [address] [place] [address], Phone - [phone], Director - Yahir Notes/Report: Specific [place] 1.016 1.005-1.030 pH 7.0 5.0-7.5 Urine-Color Yellow Yellow Appearance Cloudy Clear WBC Esterase 3+ Negative Protein 1+ Negative/Trace Glucose Negative Negative Ketones Negative Negative Occult Blood Negative Negative Bilirubin Negative Negative Urobilinogen,Semi-Qn 1.0 0.2-1.0 mg/dL Nitrite, Urine Negative Negative Microscopic Examination See below: Micr oscopic was indicated and was performed. WBC >30 0 - 5 /hpf RBC None seen 0 - 2 /hpf Epithelial Cells (non renal) None seen 0 - 10 /hpf Casts None seen None seen /lpf Bacteria Many None seen/Few CBC With Differential/Platel et-[id number] Reviewed date:07/01/2025 05:26:36 PM Interpretation: Performing [facility], [address] [facility], [place], Phone - [phone], Director - Yahir Notes/Report: WBC 10.4 3.4-10.8 x10E3/uL RBC 4.16 4.14-5.80 x10E6/uL Hemoglobin 13.4 13.0-17.7 g/dL Hematocrit 38.8 37.5-51.0 % MCV 93 79-97 fL MCH 32.2 26.6-33.0 pg MCHC 34.5 31.5-35.7 g/dL RDW 12.5 11.6-15.4 % Platelets 216 150-450 x10E3/uL Neutrophils 64 Not Estab. % Lymphs 22 Not Estab. % Monocytes 10 Not Estab. % Eos 2 Not Estab. % Basos 1 Not Estab. % Neutrophils (Absolute) 6.8 1.4-7.0 x10E3/uL Lymphs (Absolute) 2.3 0.7-3.1 x10E3/uL Monocytes(Absolute) 1.0 0.1-0.9 x10E3/uL Eos (Absolute) 0.2 0.0-0.4 x10E3/uL Baso (Absolute) 0.1 0.0-0.2 x10E3/uL Immature Granulocytes 1 Not Estab. % Immature Grans (Abs) 0.1 0.0-0.1 x10E3/uL Prostate-Specific Ag-[id number] Reviewed date:07/01/2025 05:26:36 PM Interpretation: Performing Lab:[facility] [place], [address] [facility], [place], Phone - [phone], Director - Yahir Notes/Report: Prostate Specific Ag 1.6 0.0-4.0 ng/mL Ani ECLIA methodology. . According to the [place] [employer], Serum PSA should decrease and [...] or absence of malignant disease. Vitamin D, [id number] Reviewed date:07/01/2025 05:26:36 PM Interpretation: Performing Lab:[facility] [place], [address] [place] [address], [place], Phone - [phone], Director - Yahir Notes/Report: Vitamin D, 25-Hydroxy 42.2 30.0-100.0 ng/mL Vitamin D deficiency has been defined by the [place] [employer] and an Endocrine Society practice guideline as a level of serum 25-OH vitamin D less than 20 ng/mL (1,2). The Endocrine Society went on to further define vitamin D insufficiency as a level between 21 and 29 ng/mL (2). 1. IOM ([place] [employer]). 2010. Dietary reference intakes for calcium and D. [place]: The National Academies Press. 2. Amelia MF, Ryan NC, Jenna SO, et al. Evaluation, treatment, and prevention of vitamin D deficiency: an Endocrine Society clinical practice guideline. JCEM. 2010; 96(7):1911-30. Hgb A1c with eAG Estimation- [id number] Reviewed date:07/01/2025 05:26:36 PM Interpretation: Performing Lab:[facility] [place], [address] [facility], [place], Phone - [phone], Director - Yahir Notes/Report: Hemoglobin A1c 6.4 4.8-5.6 % . Prediabetes: 5.7 - 6.4 Diabetes: >6.4 Glycemic control for adults with diabetes: <7.0 Estim. Avg Glu (eAG) 137 Comp. Metabolic Panel (14)-3 42091 Reviewed date:07/01/2025 05:26:36 PM Interpretation: Performing Lab:[facility], [facility], [place], Phone - [phone], Director - Yahir Notes/Report: Glucose 148 70-99 mg/dL BUN 14 8-27 mg/dL Creatinine 0.83 0.76-1.27 mg/dL eGFR 91 >59 mL/min/1.73 BUN/Creatinine Ratio 17 10-24 Sodium 133 134-144 mmol/L Potassium 4.3 3.5-5.2 mmol/L Chloride 95 96-106 mmol/L Carbon Dioxide, Total 26 20-29 mmol/L Calcium 9.4 8.6-10.2 mg/dL Protein, Total 7.4 6.0-8.5 g/dL Albumin 3.9 3.8-4.8 g/dL Globulin, Total 3.5 1.5-4.5 g/dL Bilirubin, Total 0.6 0.0-1.2 mg/dL Alkaline Phosphatase 96 47-123 IU/L AST (SGOT) 25 0-40 IU/L ALT (SGPT) 21 0-44 IU/L LP+Non-HDL Cholesterol-[id number] 5 Reviewed date:07/01/2025 05:26:36 PM Interpretation: Performing Lab:[facility], [facility], [place], Phone - [phone], Director - Yahir Notes/Report: Cholesterol, Total 130 100-199 mg/dL Triglycerides 75 0-149 mg/dL HDL Cholesterol 58 >39 mg/dL VLDL Cholesterol Tyler 15 5-40 mg/dL LDL Chol Calc (NIH) 57 0-99 mg/dL Non-HDL Cholesterol 72 0-129 mg/dL Stool Culture-[id number] Reviewed date:06/30/2025 11:43:07 AM Interpretation: Performing Lab:[facility], [address] [facility], [place], Phone - [phone], Director - Yahir Notes/Report: Clinical Information:SRC:ST SRC:ST Clinical Information:SRC:ST SRC:ST Clinical Information:SRC:ST SRC:ST Salmonella/Shigella Screen Final report Campylobacter Culture Final report E coli Shiga Toxin EIA Negative Negative Result 1 No Salmonella o r Shigella recovered. Result 1 No Campylobacte r species isolated. C difficile Toxins A+B, EIA- [id number] Reviewed date:06/30/2025 11:43:07 AM Interpretation: Performing Lab:[facility], [address] [facility] [address], [place], Phone - [phone], Director - Yahir Notes/Report: Clinical Information:SRC:ST SRC:ST C difficile Toxins A+B, EIA Negative Negative COMPLETE BLOOD COUNT Reviewed date:12/31/2024 06:31:03 PM Interpretation: Performing Lab: Notes/Report: WBC 6.1 4.8-10.8 K/mcL RBC 3.40 4.50-5.50 M/mcL Hemoglobin 10.8 13.5-17.5 g/dL Hematocrit 32.0 42.0-54.0 % MCV 95.5 79.0-98.0 FL MCH 32.2 27.0-32.0 pcg MCHC 33.8 32.0-37.0 g/dL RDW 12.0 11.0-15.0 % Platelets 219 130-400 K/mcL MPV 10.1 7.0-11.0 FL NRBC 0.0 <1.0 % NRBC Absolute 0.00 <0.10 K/mcL COMPREHENSIVE METABOLIC PANE L Reviewed date:12/31/2024 06:31:03 PM Interpretation: Performing Lab: Notes/Report: Sodium 137 133-145 mmol/L Potassium 3.2 3.5-5.5 mmol/L Chloride 105 96-110 mmol/L CO2 23 21-32 mmol/L Anion Gap 9 3-11 Glucose 125 70-100 mg/dL BUN 11 5-25 mg/dL Creatinine 0.52 0.70-1.30 mg/dL eGFR 105 >=60 mL/min/1.73m2 Calculation based on the Chronic Kidney Disease Epidemiology Collaboration (CKD-EPI) equation refit without adjustment for race. BUN/Creatinine Ratio 21.2 Calcium 8.6 8.5-10.5 mg/dL AST (SGOT) 59 10-42 unit/L ALT (SGPT) 55 10-60 unit/L Alkaline Phosphatase 201 42-121 unit/L Total Protein 6.4 6.0-8.0 g/dL Albumin 2.2 3.2-5.0 g/dL Total Bilirubin 0.5 0.0-1.4 mg/dL HEMOGLOBIN A1C Reviewed date:12/31/2024 06:31:03 PM Interpretation: Performing Lab: Notes/Report: Hemoglobin A1C 6.7 <6.5 % Mean Bld Glu Estim. 146 BASIC METABOLIC PANEL Reviewed date:01/15/2025 05:42:26 PM Interpretation: Performing Lab: Notes/Report: Sodium 143 133-145 mmol/L Potassium 3.0 3.5-5.5 mmol/L Chloride 110 96-110 mmol/L CO2 23 21-32 mmol/L Anion Gap 10 3-11 Glucose 104 70-100 mg/dL BUN 9 5-25 mg/dL Creatinine 0.55 0.70-1.30 mg/dL eGFR 103 >=60 mL/min/1.73m2 Calculation based on the Chronic Kidney Disease Epidemiology Collaboration (CKD-EPI) equation refit without adjustment for race. BUN/Creatinine Ratio 16.4 Calcium 8.4 8.5-10.5 mg/dL COMPLETE BLOOD COUNT Reviewed date:01/15/2025 05:42:26 PM Interpretation: Performing Lab: Notes/Report: WBC 7.4 4.8-10.8 K/mcL RBC 3.50 4.50-5.50 M/mcL Hemoglobin 11.1 13.5-17.5 g/dL Hematocrit 32.8 42.0-54.0 % MCV 94.5 79.0-98.0 FL MCH 32.0 27.0-32.0 pcg MCHC 33.8 32.0-37.0 g/dL RDW 12.5 11.0-15.0 % Platelets 306 130-400 K/mcL MPV 10.1 7.0-11.0 FL NRBC 0.0 <1.0 % NRBC Absolute 0.00 <0.10 K/mcL MAGNESIUM Reviewed date:01/15/2025 05:42:26 PM Interpretation: Performing Lab: Notes/Report: Magnesium 1.7 1.9-2.6 mg/dL BASIC METABOLIC PANEL Reviewed date:01/15/2025 05:42:26 PM Interpretation: Performing Lab: Notes/Report: Sodium 142 133-145 mmol/L Potassium 3.7 3.5-5.5 mmol/L Chloride 109 96-110 mmol/L CO2 24 21-32 mmol/L Anion Gap 9 3-11 Glucose 96 70-100 mg/dL BUN 8 5-25 mg/dL Creatinine 0.58 0.70-1.30 mg/dL eGFR 102 >=60 mL/min/1.73m2 Calculation based on the Chronic Kidney Disease Epidemiology Collaboration (CKD-EPI) equation refit without adjustment for race. BUN/Creatinine Ratio 13.8 Calcium 8.5 8.5-10.5 mg/dL MAGNESIUM Reviewed date:01/15/2025 05:42:26 PM Interpretation: Performing Lab: Notes/Report: Magnesium 1.7 1.9-2.6 mg/dL CBC WITH AUTO DIFFERENTIAL Reviewed date:01/15/2025 05:42:26 PM Interpretation: Performing Lab: Notes/Report: WBC 8.6 4.8-10.8 K/mcL RBC 3.50 4.50-5.50 M/mcL Hemoglobin 11.1 13.5-17.5 g/dL Hematocrit 34.0 42.0-54.0 % MCV 96.0 79.0-98.0 FL MCH 31.4 27.0-32.0 pcg MCHC 32.6 32.0-37.0 g/dL RDW 13.2 11.0-15.0 % Platelets 187 130-400 K/mcL MPV 10.4 7.0-11.0 FL NRBC 0.0 <1.0 % NRBC Absolute 0.00 <0.10 K/mcL Neutrophils Relative 62.3 Lymphocytes Relative 21.8 Monocytes Relative 10.9 Eosinophils Relative 3.7 Basophils Relative 0.8 Immature Granulocytes Relative 0.5 Neutrophils Absolute 5.39 1.50-7.00 K/mcL Lymphocytes Absolute 1.88 1.00-5.00 K/mcL Monocytes Absolute 0.94 0.20-1.00 K/mcL Eosinophils Absolute 0.32 0.00-0.50 K/mcL Basophils Absolute 0.07 0.00-0.20 K/mcL Immature Granulocytes Absolute 0.04 0.00-0.03 K/mcL COMPREHENSIVE METABOLIC PANE L Reviewed date:01/15/2025 05:42:26 PM Interpretation: Performing Lab: Notes/Report: Sodium 140 133-145 mmol/L Potassium 3.6 3.5-5.5 mmol/L Chloride 108 96-110 mmol/L CO2 26 21-32 mmol/L Anion Gap 6 3-11 Glucose 104 70-100 mg/dL BUN 9 5-25 mg/dL Creatinine 0.57 0.70-1.30 mg/dL eGFR 102 >=60 mL/min/1.73m2 Calculation based on the Chronic Kidney Disease Epidemiology Collaboration (CKD-EPI) equation refit without adjustment for race. BUN/Creatinine Ratio 15.8 Calcium 8.9 8.5-10.5 mg/dL AST (SGOT) 19 10-42 unit/L ALT (SGPT) 23 10-60 unit/L Alkaline Phosphatase 127 42-121 unit/L Total Protein 7.2 6.0-8.0 g/dL Albumin 3.0 3.2-5.0 g/dL Total Bilirubin 0.5 0.0-1.4 mg/dL BASIC METABOLIC PANEL Reviewed date:01/29/2025 06:13:30 PM Interpretation: Performing Lab: Notes/Report: Sodium 137 133-145 mmol/L Potassium 3.5 3.5-5.5 mmol/L Chloride 105 96-110 mmol/L CO2 24 21-32 mmol/L Anion Gap 8 3-11 Glucose 104 70-100 mg/dL BUN 8 5-25 mg/dL Creatinine 0.63 0.70-1.30 mg/dL eGFR 99 >=60 mL/min/1.73m2 Calculation based on the Chronic Kidney Disease Epidemiology Collaboration (CKD-EPI) equation refit without adjustment for race. BUN/Creatinine Ratio 12.7 Calcium 9.2 8.5-10.5 mg/dL COMPLETE BLOOD COUNT Reviewed date:01/29/2025 06:13:30 PM Interpretation: Performing Lab: Notes/Report: WBC 8.5 4.8-10.8 K/mcL RBC 3.50 4.50-5.50 M/mcL Hemoglobin 11.2 13.5-17.5 g/dL Hematocrit 33.8 42.0-54.0 % MCV 97.7 79.0-98.0 FL MCH 32.4 27.0-32.0 pcg MCHC 33.1 32.0-37.0 g/dL RDW 13.3 11.0-15.0 % Platelets 184 130-400 K/mcL MPV 11.2 7.0-11.0 FL NRBC 0.0 <1.0 % NRBC Absolute 0.00 <0.10 K/mcL BASIC METABOLIC PANEL Reviewed date:01/29/2025 06:13:30 PM Interpretation: Performing Lab: Notes/Report: Sodium 138 133-145 mmol/L Potassium 3.6 3.5-5.5 mmol/L Chloride 106 96-110 mmol/L CO2 23 21-32 mmol/L Anion Gap 9 3-11 Glucose 108 70-100 mg/dL BUN 16 5-25 mg/dL Creatinine 0.73 0.70-1.30 mg/dL eGFR 95 >=60 mL/min/1.73m2 Calculation based on the Chronic Kidney Disease Epidemiology Collaboration (CKD-EPI) equation refit without adjustment for race. BUN/Creatinine Ratio 21.9 Calcium 9.1 8.5-10.5 mg/dL COMPLETE BLOOD COUNT Reviewed date:01/29/2025 06:13:30 PM Interpretation: Performing Lab: Notes/Report: WBC 8.9 4.8-10.8 K/mcL RBC 4.00 4.50-5.50 M/mcL Hemoglobin 12.7 13.5-17.5 g/dL Hematocrit 39.9 42.0-54.0 % MCV 98.8 79.0-98.0 FL MCH 31.4 27.0-32.0 pcg MCHC 31.8 32.0-37.0 g/dL RDW 13.2 11.0-15.0 % Platelets 203 130-400 K/mcL MPV 11.4 7.0-11.0 FL NRBC 0.0 <1.0 % NRBC Absolute 0.00 <0.10 K/mcL BASIC METABOLIC PANEL Reviewed date:01/29/2025 06:13:30 PM Interpretation: Performing Lab: Notes/Report: Sodium 136 133-145 mmol/L Potassium 3.9 3.5-5.5 mmol/L Chloride 104 96-110 mmol/L CO2 24 21-32 mmol/L Anion Gap 8 3-11 Glucose 114 70-100 mg/dL BUN 12 5-25 mg/dL Creatinine 0.65 0.70-1.30 mg/dL eGFR 98 >=60 mL/min/1.73m2 Calculation based on the Chronic Kidney Disease Epidemiology Collaboration (CKD-EPI) equation refit without adjustment for race. BUN/Creatinine Ratio 18.5 Calcium 9.7 8.5-10.5 mg/dL COMPLETE BLOOD COUNT Reviewed date:01/29/2025 06:13:30 PM Interpretation: Performing Lab: Notes/Report: WBC 7.8 4.8-10.8 K/mcL RBC 3.80 4.50-5.50 M/mcL Hemoglobin 11.8 13.5-17.5 g/dL Hematocrit 36.1 42.0-54.0 % MCV 96.0 79.0-98.0 FL MCH 31.4 27.0-32.0 pcg MCHC 32.7 32.0-37.0 g/dL RDW 13.2 11.0-15.0 % Platelets 193 130-400 K/mcL MPV 11.3 7.0-11.0 FL NRBC 0.0 <1.0 % NRBC Absolute 0.00 <0.10 K/mcL BASIC METABOLIC PANEL Reviewed date:01/29/2025 06:13:30 PM Interpretation: Performing Lab: Notes/Report: Sodium 137 133-145 mmol/L Potassium 4.9 3.5-5.5 mmol/L Chloride 106 96-110 mmol/L CO2 24 21-32 mmol/L Anion Gap 7 3-11 Glucose 92 70-100 mg/dL BUN 14 5-25 mg/dL Creatinine 0.79 0.70-1.30 mg/dL eGFR 93 >=60 mL/min/1.73m2 Calculation based on the Chronic Kidney Disease Epidemiology Collaboration (CKD-EPI) equation refit without adjustment for race. BUN/Creatinine Ratio 17.7 Calcium 9.5 8.5-10.5 mg/dL COMPLETE BLOOD COUNT Reviewed date:01/29/2025 06:13:30 PM Interpretation: Performing Lab: Notes/Report: WBC 10.1 4.8-10.8 K/mcL RBC 3.80 4.50-5.50 M/mcL Hemoglobin 12.1 13.5-17.5 g/dL Hematocrit 37.4 42.0-54.0 % MCV 97.9 79.0-98.0 FL MCH 31.7 27.0-32.0 pcg MCHC 32.4 32.0-37.0 g/dL RDW 13.5 11.0-15.0 % Platelets 195 130-400 K/mcL MPV 11.7 7.0-11.0 FL NRBC 0.0 <1.0 % NRBC Absolute 0.00 <0.10 K/mcL BASIC METABOLIC PANEL Reviewed date:02/05/2025 05:00:50 PM Interpretation: Performing Lab: Notes/Report: Sodium 134 133-145 mmol/L Potassium 4.1 3.5-5.5 mmol/L Chloride 101 96-110 mmol/L CO2 25 21-32 mmol/L Anion Gap 8 3-11 Glucose 94 70-100 mg/dL BUN 16 5-25 mg/dL Creatinine 0.68 0.70-1.30 mg/dL eGFR 97 >=60 mL/min/1.73m2 Calculation based on the Chronic Kidney Disease Epidemiology Collaboration (CKD-EPI) equation refit without adjustment for race. BUN/Creatinine Ratio 23.5 Calcium 9.3 8.5-10.5 mg/dL COMPLETE BLOOD COUNT Reviewed date:02/05/2025 05:00:50 PM Interpretation: Performing Lab: Notes/Report: WBC 9.0 4.8-10.8 K/mcL RBC 3.70 4.50-5.50 M/mcL Hemoglobin 11.9 13.5-17.5 g/dL Hematocrit 35.7 42.0-54.0 % MCV 96.5 79.0-98.0 FL MCH 32.2 27.0-32.0 pcg MCHC 33.3 32.0-37.0 g/dL RDW 13.2 11.0-15.0 % Platelets 188 130-400 K/mcL MPV 11.3 7.0-11.0 FL NRBC 0.0 <1.0 % NRBC Absolute 0.00 <0.10 K/mcL CULTURE URINE Reviewed date:02/10/2025 06:32:16 PM Interpretation: Performing Lab: Notes/Report: Additional colony types present in insignificant amounts. Specimen Source: Urine Collected: Feb 06, 2025 05:00:00 Organism: ENTEROCOCCUS FAECALIS Antibiotics EMMANUELLE Interpretation Penicillin G IgG-mCnc 8 S Ampicillin Islt EMMANUELLE 2 S Ciprofloxacin Islt EMMANUELLE 0.5 S levoFLOXacin Islt EMMANUELLE 1 S Linezolid Islt Grad strip 2 S Vancomycin Susc Islt 1 S Tetracycline Islt EMMANUELLE 16 R Nitrofurantoin Islt EMMANUELLE 16 S Culture, Urine ENTEROCOCCUS FAECALIS <10,000 CFU/mL Enterococcus faecalis Edited result: Previously reported as Enterococcus species on 02/07/2025 at 1102 EDT. Report Susceptibility Report URINALYSIS WITH REFLEX MICRO SCOPIC AND CULTURE Reviewed date:02/06/2025 04:54:37 PM Interpretation: Performing Lab: Notes/Report: Specific [place] Urine 1.014 1.003-1.030 pH, Urine 7.0 5.0-8.0 pH Leukocytes, Urine Trace Negative Nitrite, Urine Negative Negative Protein, Urine Negative <=Trace mg/dL Glucose, Urine Negative Negative mg/dL Ketones, Urine Negative Negative mg/dL Urobilinogen, Urine 0.2 0.2-1.0 mg/dL Bilirubin, Urine Negative Negative Blood, Urine Negative Negative RBC, Urine 3.2 0-4 /HPF WBC, Urine 0.8 0-4 /HPF Squamous Epithelial, Urine 9 0-60 /LPF Bacteria, Urine Negative Negative /HPF Hyaline Casts, Urine 0.0 0-3 /LPF BASIC METABOLIC PANEL Reviewed date:02/10/2025 06:32:16 PM Interpretation: Performing Lab: Notes/Report: Sodium 132 133-145 mmol/L Potassium 4.3 3.5-5.5 mmol/L Chloride 101 96-110 mmol/L CO2 24 21-32 mmol/L Anion Gap 7 3-11 Glucose 115 70-100 mg/dL BUN 13 5-25 mg/dL Creatinine 0.59 0.70-1.30 mg/dL eGFR 101 >=60 mL/min/1.73m2 Calculation based on the Chronic Kidney Disease Epidemiology Collaboration (CKD-EPI) equation refit without adjustment for race. BUN/Creatinine Ratio 22.0 Calcium 9.2 8.5-10.5 mg/dL COMPLETE BLOOD COUNT Reviewed date:02/10/2025 06:32:16 PM Interpretation: Performing Lab: Notes/Report: WBC 9.2 4.8-10.8 K/mcL RBC 3.50 4.50-5.50 M/mcL Hemoglobin 11.0 13.5-17.5 g/dL Hematocrit 33.6 42.0-54.0 % MCV 94.9 79.0-98.0 FL MCH 31.1 27.0-32.0 pcg MCHC 32.7 32.0-37.0 g/dL RDW 13.2 11.0-15.0 % Platelets 177 130-400 K/mcL MPV 11.4 7.0-11.0 FL NRBC 0.0 <1.0 % NRBC Absolute 0.00 <0.10 K/mcL BASIC METABOLIC PANEL Reviewed date:02/24/2025 02:53:58 PM Interpretation: Performing Lab: Notes/Report: Sodium 134 133-145 mmol/L Potassium 4.6 3.5-5.5 mmol/L Chloride 101 96-110 mmol/L CO2 26 21-32 mmol/L Anion Gap 7 3-11 Glucose 102 70-100 mg/dL BUN 11 5-25 mg/dL Creatinine 0.60 0.70-1.30 mg/dL eGFR 101 >=60 mL/min/1.73m2 Calculation based on the Chronic Kidney Disease Epidemiology Collaboration (CKD-EPI) equation refit without adjustment for race. BUN/Creatinine Ratio 18.3 Calcium 9.2 8.5-10.5 mg/dL COMPLETE BLOOD COUNT Reviewed date:02/24/2025 02:53:58 PM Interpretation: Performing Lab: Notes/Report: WBC 7.9 4.8-10.8 K/mcL RBC 3.80 4.50-5.50 M/mcL Hemoglobin 11.8 13.5-17.5 g/dL Hematocrit 35.8 42.0-54.0 % MCV 94.5 79.0-98.0 FL MCH 31.1 27.0-32.0 pcg MCHC 33.0 32.0-37.0 g/dL RDW 13.2 11.0-15.0 % Platelets 220 130-400 K/mcL MPV 10.5 7.0-11.0 FL NRBC 0.0 <1.0 % NRBC Absolute 0.00 <0.10 K/mcL BASIC METABOLIC PANEL Reviewed date:02/24/2025 02:53:58 PM Interpretation: Performing Lab: Notes/Report: Sodium 136 133-145 mmol/L Potassium 4.6 3.5-5.5 mmol/L Chloride 104 96-110 mmol/L CO2 28 21-32 mmol/L Anion Gap 4 3-11 Glucose 97 70-100 mg/dL BUN 9 5-25 mg/dL Creatinine 0.63 0.70-1.30 mg/dL eGFR 99 >=60 mL/min/1.73m2 Calculation based on the Chronic Kidney Disease Epidemiology Collaboration (CKD-EPI) equation refit without adjustment for race. BUN/Creatinine Ratio 14.3 Calcium 9.4 8.5-10.5 mg/dL COMPLETE BLOOD COUNT Reviewed date:02/24/2025 02:53:58 PM Interpretation: Performing Lab: Notes/Report: WBC 8.6 4.8-10.8 K/mcL RBC 3.70 4.50-5.50 M/mcL Hemoglobin 11.2 13.5-17.5 g/dL Hematocrit 34.9 42.0-54.0 % MCV 95.4 79.0-98.0 FL MCH 30.6 27.0-32.0 pcg MCHC 32.1 32.0-37.0 g/dL RDW 13.2 11.0-15.0 % Platelets 208 130-400 K/mcL MPV 10.6 7.0-11.0 FL NRBC 0.0 <1.0 % NRBC Absolute 0.00 <0.10 K/mcL HEPATIC FUNCTION PANEL Reviewed date:02/24/2025 02:53:58 PM Interpretation: Performing Lab: Notes/Report: Total Protein 7.0 6.0-8.0 g/dL Albumin 3.1 3.2-5.0 g/dL Total Bilirubin 0.4 0.0-1.4 mg/dL Bilirubin, Direct 0.2 0.0-0.3 mg/dL Bilirubin, Indirect 0.2 0.0-1.1 mg/dL ALT (SGPT) 24 10-60 unit/L AST (SGOT) 15 10-42 unit/L Alkaline Phosphatase 111 42-121 unit/L BASIC METABOLIC PANEL Reviewed date:03/03/2025 05:40:34 PM Interpretation: Performing Lab: Notes/Report: Sodium 133 133-145 mmol/L Potassium 3.8 3.5-5.5 mmol/L Chloride 102 96-110 mmol/L CO2 23 21-32 mmol/L Anion Gap 8 3-11 Glucose 145 70-100 mg/dL BUN 10 5-25 mg/dL Creatinine 0.64 0.70-1.30 mg/dL eGFR 99 >=60 mL/min/1.73m2 Calculation based on the Chronic Kidney Disease Epidemiology Collaboration (CKD-EPI) equation refit without adjustment for race. BUN/Creatinine Ratio 15.6 Calcium 9.0 8.5-10.5 mg/dL COMPLETE BLOOD COUNT Reviewed date:03/03/2025 05:40:34 PM Interpretation: Performing Lab: Notes/Report: WBC 10.2 4.8-10.8 K/mcL RBC 3.80 4.50-5.50 M/mcL Hemoglobin 11.5 13.5-17.5 g/dL Hematocrit 35.0 42.0-54.0 % MCV 93.1 79.0-98.0 FL MCH 30.6 27.0-32.0 pcg MCHC 32.9 32.0-37.0 g/dL RDW 13.3 11.0-15.0 % Platelets 170 130-400 K/mcL MPV 10.7 7.0-11.0 FL NRBC 0.0 <1.0 % NRBC Absolute 0.00 <0.10 K/mcL BASIC METABOLIC PANEL Reviewed date:03/10/2025 05:43:11 PM Interpretation: Performing Lab: Notes/Report: Sodium 135 133-145 mmol/L Potassium 3.9 3.5-5.5 mmol/L Chloride 102 96-110 mmol/L CO2 25 21-32 mmol/L Anion Gap 8 3-11 Glucose 140 70-100 mg/dL BUN 11 5-25 mg/dL Creatinine 0.69 0.70-1.30 mg/dL eGFR 97 >=60 mL/min/1.73m2 Calculation based on the Chronic Kidney Disease Epidemiology Collaboration (CKD-EPI) equation refit without adjustment for race. BUN/Creatinine Ratio 15.9 Calcium 9.2 8.5-10.5 mg/dL COMPLETE BLOOD COUNT Reviewed date:03/10/2025 05:43:11 PM Interpretation: Performing Lab: Notes/Report: WBC 10.9 4.8-10.8 K/mcL RBC 4.00 4.50-5.50 M/mcL Hemoglobin 12.5 13.5-17.5 g/dL Hematocrit 37.7 42.0-54.0 % MCV 93.5 79.0-98.0 FL MCH 31.0 27.0-32.0 pcg MCHC 33.2 32.0-37.0 g/dL RDW 13.6 11.0-15.0 % Platelets 194 130-400 K/mcL MPV 11.1 7.0-11.0 FL NRBC 0.0 <1.0 % NRBC Absolute 0.00 <0.10 K/mcL BASIC METABOLIC PANEL Reviewed date:03/25/2025 01:35:57 PM Interpretation: Performing Lab: Notes/Report: Sodium 134 133-145 mmol/L Potassium 4.0 3.5-5.5 mmol/L Chloride 101 96-110 mmol/L CO2 23 21-32 mmol/L Anion Gap 10 3-11 Glucose 122 70-100 mg/dL BUN 9 5-25 mg/dL Creatinine 0.65 0.70-1.30 mg/dL eGFR 98 >=60 mL/min/1.73m2 Calculation based on the Chronic Kidney Disease Epidemiology Collaboration (CKD-EPI) equation refit without adjustment for race. BUN/Creatinine Ratio 13.8 Calcium 9.1 8.5-10.5 mg/dL COMPLETE BLOOD COUNT Reviewed date:03/25/2025 01:35:57 PM Interpretation: Performing Lab: Notes/Report: WBC 9.8 4.8-10.8 K/mcL RBC 3.90 4.50-5.50 M/mcL Hemoglobin 12.1 13.5-17.5 g/dL Hematocrit 36.4 42.0-54.0 % MCV 92.9 79.0-98.0 FL MCH 30.9 27.0-32.0 pcg MCHC 33.2 32.0-37.0 g/dL RDW 13.4 11.0-15.0 % Platelets 204 130-400 K/mcL MPV 10.9 7.0-11.0 FL NRBC 0.0 <1.0 % NRBC Absolute 0.00 <0.10 K/mcL BASIC METABOLIC PANEL Reviewed date:03/25/2025 01:35:57 PM Interpretation: Performing Lab: Notes/Report: Sodium 134 133-145 mmol/L Potassium 3.9 3.5-5.5 mmol/L Chloride 99 96-110 mmol/L CO2 25 21-32 mmol/L Anion Gap 10 3-11 Glucose 145 70-100 mg/dL BUN 11 5-25 mg/dL Creatinine 0.64 0.70-1.30 mg/dL eGFR 99 >=60 mL/min/1.73m2 Calculation based on the Chronic Kidney Disease Epidemiology Collaboration (CKD-EPI) equation refit without adjustment for race. BUN/Creatinine Ratio 17.2 Calcium 9.5 8.5-10.5 mg/dL COMPLETE BLOOD COUNT Reviewed date:03/25/2025 01:35:57 PM Interpretation: Performing Lab: Notes/Report: WBC 8.6 4.8-10.8 K/mcL RBC 4.10 4.50-5.50 M/mcL Hemoglobin 12.6 13.5-17.5 g/dL Hematocrit 37.9 42.0-54.0 % MCV 92.9 79.0-98.0 FL MCH 30.9 27.0-32.0 pcg MCHC 33.2 32.0-37.0 g/dL RDW 13.4 11.0-15.0 % Platelets 208 130-400 K/mcL MPV 11.2 7.0-11.0 FL NRBC 0.0 <1.0 % NRBC Absolute 0.00 <0.10 K/mcL BILIRUBIN, DIRECT Reviewed date:04/18/2025 02:43:39 PM Interpretation: Performing Lab: Notes/Report: Bilirubin, Direct 0.2 0.0-0.3 mg/dL COMPLETE BLOOD COUNT Reviewed date:04/18/2025 02:43:39 PM Interpretation: Performing Lab: Notes/Report: WBC 9.9 4.8-10.8 K/mcL RBC 4.00 4.50-5.50 M/mcL Hemoglobin 12.2 13.5-17.5 g/dL Hematocrit 36.6 42.0-54.0 % MCV 91.0 79.0-98.0 FL MCH 30.3 27.0-32.0 pcg MCHC 33.3 32.0-37.0 g/dL RDW 13.2 11.0-15.0 % Platelets 195 130-400 K/mcL MPV 11.0 7.0-11.0 FL NRBC 0.0 <1.0 % NRBC Absolute 0.00 <0.10 K/mcL COMPREHENSIVE METABOLIC PANE L Reviewed date:04/18/2025 02:43:39 PM Interpretation: Performing Lab: Notes/Report: Sodium 135 133-145 mmol/L Potassium 3.8 3.5-5.5 mmol/L Chloride 102 96-110 mmol/L CO2 23 21-32 mmol/L Anion Gap 10 3-11 Glucose 78 70-100 mg/dL BUN 13 5-25 mg/dL Creatinine 0.54 0.70-1.30 mg/dL eGFR 104 >=60 mL/min/1.73m2 Calculation based on the Chronic Kidney Disease Epidemiology Collaboration (CKD-EPI) equation refit without adjustment for race. BUN/Creatinine Ratio 24.1 Calcium 9.5 8.5-10.5 mg/dL AST (SGOT) 20 10-42 unit/L ALT (SGPT) 24 10-60 unit/L Alkaline Phosphatase 103 42-121 unit/L Total Protein 7.4 6.0-8.0 g/dL Albumin 3.4 3.2-5.0 g/dL Total Bilirubin 0.5 0.0-1.4 mg/dL BASIC METABOLIC PANEL Reviewed date:04/18/2025 02:43:39 PM Interpretation: Performing Lab: Notes/Report: Sodium 132 133-145 mmol/L Potassium 3.9 3.5-5.5 mmol/L Chloride 101 96-110 mmol/L CO2 21 21-32 mmol/L Anion Gap 10 3-11 Glucose 128 70-100 mg/dL BUN 11 5-25 mg/dL Creatinine 0.67 0.70-1.30 mg/dL eGFR 97 >=60 mL/min/1.73m2 Calculation based on the Chronic Kidney Disease Epidemiology Collaboration (CKD-EPI) equation refit without adjustment for race. BUN/Creatinine Ratio 16.4 Calcium 9.0 8.5-10.5 mg/dL COMPLETE BLOOD COUNT Reviewed date:04/18/2025 02:43:39 PM Interpretation: Performing Lab: Notes/Report: WBC 9.5 4.8-10.8 K/mcL RBC 4.00 4.50-5.50 M/mcL Hemoglobin 12.3 13.5-17.5 g/dL Hematocrit 37.0 42.0-54.0 % MCV 91.6 79.0-98.0 FL MCH 30.4 27.0-32.0 pcg MCHC 33.2 32.0-37.0 g/dL RDW 13.5 11.0-15.0 % Platelets 187 130-400 K/mcL MPV 11.0 7.0-11.0 FL NRBC 0.0 <1.0 % NRBC Absolute 0.00 <0.10 K/mcL BASIC METABOLIC PANEL Reviewed date:04/18/2025 02:43:39 PM Interpretation: Performing Lab: Notes/Report: Sodium 134 133-145 mmol/L Potassium 3.8 3.5-5.5 mmol/L Chloride 102 96-110 mmol/L CO2 23 21-32 mmol/L Anion Gap 9 3-11 Glucose 107 70-100 mg/dL BUN 9 5-25 mg/dL Creatinine 0.46 0.70-1.30 mg/dL eGFR 109 >=60 mL/min/1.73m2 Calculation based on the Chronic Kidney Disease Epidemiology Collaboration (CKD-EPI) equation refit without adjustment for race. BUN/Creatinine Ratio 19.6 Calcium 9.3 8.5-10.5 mg/dL COMPLETE BLOOD COUNT Reviewed date:04/18/2025 02:43:39 PM Interpretation: Performing Lab: Notes/Report: WBC 9.5 4.8-10.8 K/mcL RBC 4.30 4.50-5.50 M/mcL Hemoglobin 13.1 13.5-17.5 g/dL Hematocrit 38.7 42.0-54.0 % MCV 90.8 79.0-98.0 FL MCH 30.8 27.0-32.0 pcg MCHC 33.9 32.0-37.0 g/dL RDW 13.4 11.0-15.0 % Platelets 169 130-400 K/mcL MPV 11.2 7.0-11.0 FL NRBC 0.0 <1.0 % NRBC Absolute 0.00 <0.10 K/mcL Reason For Referral Diagnosis 1 Hemiplegia and hemip aresis following cerebral infarction affecting right dominant side (I69.351) Referral Organization [facility] Referring Provider First Name Velvet Referring Provider Last Name Zain Referring Provider Speciality Internal M edicine Referred Provider Mili Alberto Referred Provider Specialty Neurology [facility]06 PM >faxed Referral Priority Routine Diagnosis 1 Type 2 diabetes gisel itus with diabetic peripheral angiopathy without gangrene (E11.51) Referral Organization [facility] Referring Provider First Name Velvet Referring Provider Last Name Zain Referring Provider Speciality Internal M edicine Referred Provider [facility] Referral, [facility] Referred Provider Specialty Vascular Mark mikey General [facility] 05:41:24 PM >fax[facility] referral form, [facility]/19/2025 05:17:39 PM >refaxed Referral Priority Routine Medications Medication SIG (Take, Route, Frequency, Duration) Notes Start Date End Date Status Docusate Sodium 100 MG 1 capsule as need ed Orally Once a day; Duration: 90 days Not-Taking Vitamin D 25 MCG (1000 UT) 1 tablet Orally Once a day; Duration: 30 day(s) Active Memantine HCl 5 MG TAKE 1 TABLET BY MOUTH EVERY DAY Orally Once a day; Duration: 90 days Active Spironolactone 25 MG 1 tablet Orally Onc e a day; Duration: 90 days 04/27/2026 Active Tums 500 MG 1 tablet Orally Once a day Not-Taking Lisinopril 20 MG 1 tablet Orally twic e a day Active Ferrous Sulfate 325 (65 Fe) MG 1 tablet Orally Three times a Week; Duration: 90 days Active Eliquis 5 MG 1 Tablet Orally Twic e a day; Duration: 90 days 01/05/2024 Active Lyrica 75 MG 1 capsule in the evening 1 to 3 hours before bedtime Orally Once a day; Duration: 90 days 04/15/2025 04/10/2026 Active Miconatate 2-1 % as directed Externally Not-Taking Modafinil 200 MG 1 tablet in the morning Orally Once a day; Duration: 90 days 04/15/2025 Active Tylenol Not-Taking Potassium Chloride ER 20 MEQ 1 tablet with food Orally Once a day; Duration: 90 days 04/11/2026 Active QUEtiapine Fumarate 25 MG TAKE 1 TABLET AT BEDTIME; Duration: 90 Not-Taking Atorvastatin Calcium 20 MG 1 tablet Orally Once a day; Duration: 90 days Active Milk of Magnesia Not -Taking Detrol 2 MG 1 tablet Orally Twic e a day; Duration: 14 days Active MiraLax Not-Taking Metoprolol Succinate ER 100 MG 1 tablet Orally Once a day; Duration: 90 days Active Acetaminophen 325 MG 2 tablet as needed Orally every 6 hrs Active Senna 8.6 MG 2 tablets at bedtime as needed Orally Once a day Active DULoxetine HCl 30 MG 1 capsule Orally On ce a day; Duration: 90 days Active Immunizations Vaccine Route Administration Date Status Comme nts *Rnxfpnqvb-Joxdxiw-Hrbs Dose-65+ IM Intramuscular 04/15/2024 Administered *Jfephirck-Hptqpua-Alqw Dose-65+ IM Intramuscular 05/21/2025 Administered *PREVNAR 20 IM Intramuscular 06/20/2024 Administered *Tdap Unknown 04/06/2007 Administered Influenza (Fluad) Unknown 03/25/2020 Administered Influenza, high dose seasonal Unknown 03/16/2019 [...] injectable, 6-35 months Unknown 04/02/2015 Administered Novel Iavnpdowe-B3P1-21, preservative free Unknown 07/07/2009 Administered Pneumococcal polysaccharide PCV 13 Unknown 01/26/2015 Administered Pneumococcal polysaccharide PPV23 Unknown 01/06/2014 Administered RSV-Arexby Unknown 06/23/2023 Administered Td (adult), absorbed Unknown 07/07/2017 Administered Zoster Unknown 04/12/2010 Administered Social History Tobacco Use: Social History Observation Description Date Details (start date - stop date) Former Smoker NA - NA AUDIT-C (Standard) Question Answer Notes Did you have a drink containing alcohol in the p ast year? No Points 0 Interpretation Negative Tobacco Control (Standard) Question Answer Notes Tobacco use: Former smoker How long has it been since you last smoked? Grea ter than 10 years Section Notes: Living situation: Lives at home with assistance from family and friends Alcohol use: No current use, history of use in 30s, 40s, and 50s Living situation: Lives at home with assistance from family and friends Alcohol use: No current use, history of use in 30s, 40s, and 50s Exercise habits: Physical therapy and occupational therapy performed regularly with veterinarian helper Problems Problem Type SNOMED Code ICD Code Onset Dates Problem Status W/U Status Risk Notes Problem Iron deficiency anemia (78261835) Iron deficiency anemia, unspecified (D50.9) Active confirmed Problem Thrombophilia (992993904) Other thrombophilia (D68.69) Active confirmed Problem Diabetic peripheral neuropathy associated with type 2 diabetes mellitus (6591092793506) Type 2 diabetes mellitus with diabetic neuropathy, unspecified (E11.40) Active confirmed Problem Type 2 diabetes mellitus with peripheral angiopathy (401725297) Type 2 diabetes mellitus with diabetic peripheral angiopathy without gangrene (E11.51) Active confirmed Problem Vitamin D deficiency (82822107) Vitamin D deficiency, unspecified (E55.9) Active confirmed Problem Mixed hyperlipidemia (382347970) Mixed hyperlipidemia (E78.2) Active confirmed Problem Anxiety disorder (417465256) Other specified anxiety disorders (F41.8) Active confirmed Problem Encephalopathy (88267131) Encephalopathy, unspecified (G93.40) Active confirmed Problem Presbycusis (10689437) Presbycusis, bilateral (H91.13) Active confirmed Problem Essential hypertension (03318384) Essential (primary) hypertension (I10) Active confirmed Problem Hypertensive heart disease without congestive heart failure (25945474) Hypertensive heart disease without heart failure (I11.9) Active confirmed Problem Paroxysmal atrial fibrillation (993312415) Paroxysmal atrial fibrillation (I48.0) Active confirmed Problem Atrial fibrillation (08540393) Unspecified atrial fibrillation (I48.91) Active confirmed Problem 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 confirmed Problem Hemiplegia of dominant side as late effect of cerebrovascular disease (839192418) Hemiplegia and hemiparesis following cerebral infarction affecting right dominant side (I69.351) Active confirmed Problem Hemiplegia of nondominant side as late effect of cerebrovascular disease (117755955) Hemiplegia and hemiparesis following cerebral infarction affecting right non-dominant side (I69.353) Active confirmed Problem Cirrhosis of liver (41819376) Unspecified cirrhosis of liver (K74.60) Active confirmed Problem Pressure ulcer o f unspecified part of back, stage 1 (L89.101) Active confirmed Problem Gout (49862443) Gout, unspecifie d (M10.9) Active confirmed Problem Acute hematogenous osteomyelitis (713008102) Acute hematogenous osteomyelitis, other sites (M86.08) Active confirmed Problem Osteomyelitis (59750989) Osteomyelitis, unspecified (M86.9) Active confirmed Problem Neurogenic dysfunction of the urinary bladder (563272550) Neuromuscular dysfunction of bladder, unspecified (N31.9) Active confirmed Problem Long-term current use of anticoagulant (126776153) correction (current) use of anticoagulants (Z79.01) Active confirmed Problem History of cerebrovascular accident without residual deficits (043229796) Personal history of transient ischemic attack (TIA), and cerebral infarction without residual deficits (Z86.73) Active confirmed Problem Cardiac pacemaker in situ (222746183) Presence of cardiac pacemaker (Z95.0) Active confirmed Problem Residual cognitive deficit as late effect of cerebrovascular accident (205419169) Unspecified symptoms and signs involving cognitive functions following cerebral infarction (I69.319) Active confirmed Problem Prediabetes (894320213) Prediabetes (R73.03) Active confirmed Problem Neurogenic claudication (829304889) Spinal stenosis, lumbar region with neurogenic claudication (M48.062) Active confirmed Problem Permanent atrial fibrillation (544073896) Permanent atrial fibrillation (I48.21) Active confirmed Problem Aneurysm of ascending aorta (disorder) (425992356) Aneurysm of the ascending aorta, without rupture (I71.21) Active confirmed Vital Signs Heart Rate 65 /min 06/30/2025 Temperature 97.8 degrees Fahrenheit 06/30/2025 Oximetry 94 % 06/30/2025 Blood pressure diastolic 78 mm Hg 04/15/2025 Height 5 ft 9 in in 06/30/2025 Blood pressure systolic 123 mm Hg 04/15/2025 Weight 174.6 lbs 06/30/2025 BMI 25.78 kg/m2 06/30/2025 Encounters Encounter Location Date Provider Diagnosis Velvet Pittman MD [address] [id number] 04/15/2025 Velvet Pittman Nontraumatic intracerebral hemorrhage in hemisphere, subcortical I61.0 ; Hemiplegia and hemiparesis following cerebral infarction affecting right dominant side I69.351 ; Aphasia following cerebral infarction I69.320 ; Essential (primary) hypertension I10 ; Permanent atrial fibrillation I48.21 ; Other thrombophilia D68.69 ; Prediabetes R73.03 ; Presence of cardiac pacemaker Z95.0 and Alcohol use, unspecified, uncomplicated F10.90 Velvet Pittman MD [address] [id number] 05/21/2025 Velvet Pittman Essential (primary) hypertension I10 ; Permanent atrial fibrillation I48.21 ; Other thrombophilia D68.69 ; Hemiplegia and hemiparesis following cerebral infarction affecting right dominant side I69.351 ; Prediabetes R73.03 ; Presence of cardiac pacemaker Z95.0 ; Mixed hyperlipidemia E78.2 ; Vitamin D deficiency, unspecified E55.9 ; Diarrhea, unspecified R19.7 and Encounter for immunization Z23 Velvet Pittman MD [address] [id number] 06/09/2025 Velvet Pittman MD [address] [id number] 06/10/2025 Velvet Pittman Type 2 diabetes mellitus with diabetic peripheral angiopathy without gangrene E11.51 Velvet Pittman MD [address] [id number] 06/30/2025 Velvet Pittman Type 2 diabetes mellitus with diabetic peripheral angiopathy without gangrene E11.51 ; Encounter for general adult medical examination without abnormal findings Z00.00 ; Essential (primary) hypertension I10 ; Permanent atrial fibrillation I48.21 ; Other thrombophilia D68.69 ; Hemiplegia and hemiparesis following cerebral infarction affecting right dominant side I69.351 ; Presence of cardiac pacemaker Z95.0 ; Mixed hyperlipidemia E78.2 ; Vitamin D deficiency, unspecified E55.9 ; Encounter for screening for malignant neoplasm of colon Z12.11 ; Encounter for screening for malignant neoplasm of prostate Z12.5 ; Encounter for screening for cardiovascular disorders Z13.6 ; Encounter for immunization Z23 ; Encounter for antibody response examination Z01.84 ; Encounter for screening for other viral diseases Z11.59 and Presbycusis, bilateral H91.13 [facility] [address] [place] [address] [place] [id number] 08/09/2024 [facility] [address] [place], [place] [id number] 11/28/2024 [facility] [address] [place], [place] [id number] 12/31/2024 [facility] [address] [place], [place] [id number] 12/31/2024 [facility] [address] [place], [place] [id number] 03/10/2025 [facility] [address] [place], [place] [id number] 04/15/2025 [facility] [address] [place], [place] [id number] 04/16/2025 [facility] [address] [place], [place] [id number] 04/16/2025 [facility] [address] [place], [place] [id number] 04/17/2025 [facility] [address] [place], [place] [id number] 04/18/2025 Velvet Pittman Permanent atrial fibrillation I48.21 [facility] [address] [place], [place] [id number] 04/18/2025 [facility] [address] [place], [place] [id number] 04/21/2025 [facility] [address] [place] [id number] 04/22/2025 [facility] [address] [place] [id number] 04/29/2025 [facility] [address] [place] [id number] 05/02/2025 [facility] [address] [place] [address] [id number] 05/02/2025 [facility] [address] [place] [id number] 05/02/2025 Velvet Pittman Permanent atrial fibrillation I48.21 [facility] [address] [place] [id number] 05/12/2025 Velvet Pittman MD [address] [id number] 05/14/2025 Velvet Pittman Diarrhea, unspecifie d R19.7 Velvet Pittman MD [address] [id number] 06/09/2025 Velvet Pittman MD [address] [id number] 06/10/2025 Velvet Pittman MD [address] [id number] 05/30/2025 Velvet Pittman Assessments Encounter Date Diagnosis (ICD Code) Assessment Notes Treatment Notes Treatment Clinical Notes Section Notes 04/15/2025 Nontraumatic intracerebral hemorrhage in hemisphere, subcortical (ICD-10 - I61.0) History of left thalamic brain hemorrhage 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 Persistent right arm weakness, numbness, and inability to walk. Speech is generally good but patient tires in the afternoon. Short-term memory issues and moderate dementia score. Improvement in continence since returning home. Ongoing rehabilitation and speech therapy. - Continue speech therapy. - Monitor functional recovery over next 6-12 months. - Maintain home modifications and assistive devices for safety. 04/15/2025 Hemiplegia and hemiparesis following cerebral infarction affecting right dominant side (ICD-10 - I69.351) He continues to get therapy at home. Continue therapy. According to the he can stand with assist and pivot. However he is a two-person assist for transfer. She is planning to have help at home so that she will have enough help to take care of him at home. She does not feel that he needs to be in a facility at this point in time 04/18/2025 Permanent atrial fibrillation (ICD-10 - I48.21) 05/02/2025 Permanent atrial fibrillation (ICD-10 - I48.21) 05/14/2025 Diarrhea, unspecified (ICD-10 - R19.7) 05/21/2025 Essential (primary) hypertension (ICD-10 - I10) Blood pressure readings at home are consistently good. Ramipril and hydralazine have been discontinued. Lisinopril dose is being reduced from 20 mg to 10 mg. Caregiver monitors blood pressure daily. - Decrease lisinopril from 20 mg to 10 mg. - Stop hydralazine. - Continue metoprolol. 05/21/2025 Permanent atrial fibrillation (ICD-10 - I48.21) History of permanent atrial fibrillation. Increased risk for stroke. Eliquis prescribed for anticoagulation. - Continue Eliquis as prescribed. - Monitor for bleeding and stroke symptoms. 06/10/2025 Type 2 diabetes mellitus with diabetic peripheral angiopathy without gangrene (ICD-10 - E11.51) Redness, warmth, and purple discoloration of the left foot with pain on lifting the leg. Skin tears present, redness improves with elevation. No evidence of cellulitis. Concern for poor circulation and risk of infection or gangrene. Recent hospitalization may have contributed to vascular compromise. - Referral to vascular surgery for evaluation and management - Advise to avoid injury to the foot to prevent infection and complications - Recommend moisturizing the skin with Cerave two to three times daily Hemoglobin A1C 6.5, confirming new diagnosis of diabetes. Caregiver expressed concern about crossing threshold into diabetes. Prior use of insulin for high blood sugar episodes discussed. Patient encouraged to exercise and manage diabetes through lifestyle modifications.- Recommend exercise, such as walking in place or splitting sessions into shorter intervals- Monitor blood sugar levels and consider medication if A1C increases 06/30/2025 Type 2 diabetes mellitus with diabetic peripheral angiopathy without gangrene (ICD-10 - E11.51) Stable at present. Can continue to encourage exercise which she is trying to do little by little to maintain lifestyle modification as treatment option. Recheck status and if decompensated can increase medical therapy 06/30/2025 Encounter for general adult medical examination without abnormal findings (ICD-10 - Z00.00) General healthcare up-to-date. Check routine labs. He already has a healthcare proxy in place 06/30/2025 Essential (primary) hypertension (ICD-10 - I10) Stable at present. Continue current medical therapy 05/21/2025 Other thrombophilia (ICD-10 - D68.69) His [id number] score is at least 5. Based on this he is at increased risk for thromboembolic event and recommend chronic anticoagulation. 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 Continue same 04/15/2025 Essential (primary) hypertension (ICD-10 - I10) History of hypertension. Blood pressure readings at home: 128/91 before medication, 123/78 after medication. Hydralazine used only if blood pressure over 150. - Continue home blood pressure monitoring. - Use hydralazine only if blood pressure exceeds 150. 05/21/2025 Hemiplegia and hemiparesis following cerebral infarction affecting right dominant side (ICD-10 - I69.351) He continues to get therapy at home. Continue therapy. He can now walk with a walker. 06/30/2025 Permanent atrial fibrillation (ICD-10 - I48.21) He remains in fibrillation. Continues on anticoagulation. He is rate controlled. 06/30/2025 Other thrombophilia (ICD-10 - D68.69) His [id number] score is at least 5. Based on this he is at increased risk for thromboembolic event and recommend chronic anticoagulation. 05/21/2025 Prediabetes (ICD-10 - R73.03) Home sugar readings between 120 and 150. Caregiver checks sugars every other day. Hemoglobin A1C ordered to assess long-term glucose control. - Order hemoglobin A1C. 04/15/2025 Permanent atrial fibrillation (ICD-10 - I48.21) History of permanent atrial fibrillation. Increased risk for stroke. Eliquis prescribed for anticoagulation. - Continue Eliquis as prescribed. - Monitor for bleeding and stroke symptoms. 04/15/2025 Other thrombophilia (ICD-10 - D68.69) His [id number] score is at least 5. Based on this he is at increased risk for thromboembolic event and recommend chronic anticoagulation. 05/21/2025 Presence of cardiac pacemaker (ICD-10 - Z95.0) Stable and unchanged 06/30/2025 Hemiplegia and hemiparesis following cerebral infarction affecting right dominant side (ICD-10 - I69.351) He continues to get therapy at home. He is at least walking some more. But he still has weakness. 06/30/2025 Presence of cardiac pacemaker (ICD-10 - Z95.0) Stable and unchanged 05/21/2025 Mixed hyperlipidemia (ICD-10 - E78.2) Can check level to verify adequate control as comorbidity 04/15/2025 Prediabetes (ICD-10 - R73.03) Stable in the past. Recheck status to verify that there is no progression. 04/15/2025 Presence of cardiac pacemaker (ICD-10 - Z95.0) Stable and unchanged 05/21/2025 Vitamin D deficiency, unspecified (ICD-10 - E55.9) Check level to verify that there is no deficiency 06/30/2025 Mixed hyperlipidemia (ICD-10 - E78.2) Can recheck level to verify adequate control of his comorbidity 06/30/2025 Vitamin D deficiency, unspecified (ICD-10 - E55.9) Stable on prior labs as reviewed. Recheck status and continue vitamin D supplementation to maintain level of 30+ 05/21/2025 Diarrhea, unspecified (ICD-10 - R19.7) Diarrhea is ongoing and has not improved. Episodes are associated with certain medications, particularly magnesium. Skin irritation occurs during diarrhea episodes. Caregiver brought in a stool sample for laboratory testing. - Stop magnesium. - Apply nystatin powder and A&D ointment as needed for skin irritation. - Lab testing of stool sample. 04/15/2025 Alcohol use, unspecified, uncomplicated (ICD-10 - F10.90) 05/21/2025 Encounter for immunization (ICD-10 - Z23) Flu shot planned as routine immunization. - Administer influenza vaccine. 06/30/2025 Encounter for screening for malignant neoplasm of colon (ICD-10 - Z12.11) Up-to-date on colon cancer screening 06/30/2025 Encounter for screening for malignant neoplasm of prostate (ICD-10 - Z12.5) Can check PSA realizing the limitations of this test as a screening tool. 06/30/2025 Encounter for screening for cardiovascular disorders (ICD-10 - Z13.6) Cardiovascular risk calculated based on the prevent calculator and or other modalities. Medical therapy can be adjusted based on the calculated risk. Can evaluate for hyperlipidemia as a significant comorbidity that may be modifiable to adjust this risk. 06/30/2025 Encounter for immunization (ICD-10 - Z23) Vaccines up to date 06/30/2025 Encounter for antibody response examination (ICD-10 - Z01.84) He would be considered immune to rubeola by virtue of his age 1206/30/2025 Encounter for screening for other viral diseases (ICD-10 - Z11.59) Can screen for hepatitis C as per general recommendation 06/30/2025 Presbycusis, bilateral (ICD-10 - H91.13) Given the association between hearing loss and cognitive impairment recommend hearing evaluation even if there is no perceived hearing loss. 04/15/2025 Other This note was created with a combination of voice dictation recognition software in combination with voice recognition software with AI as allowed by patient consent. It may contain errors of grammar and syntax. Also labs were reviewed with patient. 06/10/2025 Other This note was created with a combination of voice dictation recognition software in combination with voice recognition software with AI as allowed by patient consent. It may contain errors of grammar and syntax. Also labs were reviewed with patient. 06/30/2025 Other This note was created with a combination of voice dictation recognition software in combination with voice recognition software with Artificial Intelligence as allowed by patient consent. It may contain errors of grammar and syntax. Also labs were reviewed with patient. Plan Of Treatment Next Appt Details Provider Name:Velvet Pittman , 11/10/2025 11:15:00 AM, [address] [place] [address], [phone], Provider Name:Velvet Pittman , 07/06/2026 01:00:00 PM, [address] [place] [address], [phone], Insurance Providers Payer Name Payer Address Payer Phone Subscriber Number Group Number Insured Name Patient Relationship to Insured Coverage Start Date Coverage End Date MEDICARE [address] [place] [phone] [id number] Josh Germain Self - patient is the insured [facility] [address] [place] [address] [id number] Josh Germain Self - patient is the insured Medical (General) History Medical History History ICD Code hypertension Afib osteomyelitis 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
--- OUTSIDE RECORDS SUMMARY | 2025-07-14 13:05 | XMS_ITS | Encounter Summary ---
Author Organization [facility] Address [address] [place] [address] Care Team Providers Care Aviation Metalsmith Name Role Phone Velvet Pittman MD Primary Care Provider Encounter Details Date Type Department Care Team (Late st Contact Info) Description 03/21/2025 Lab Requisition [facility] - Main Lab 299 [facility] [place] [address] Omari Winters MD [address] [place] [address] Essential (primary) hypertension; Unspecified atrial fibrillation (CMS/HCC [...] Associated Diagnosis Comments COMPLETE BLOOD COUNT Routine 03/24/2025 9:30 AM EDT Essential (primary) hypertension Unspecified atrial fibrillation (CMS/HCC V24, CMS/HCC V28) BASIC METABOLIC PANEL Routine 03/24/2025 9:30 AM EDT Essential (primary) hypertension Unspecified atrial fibrillation (CMS/HCC V24, CMS/HCC V28) documented in this encounter Results * (ABNORMAL) Complete blood count (03/24/2025 9:30 AM EDT) [facility] WBC 8.6 4.8 - 10.8 K/mcL LAB HEMETOLOGY METHOD 03/24/2025 12:18 PM EDT [facility] RBC 4.10(L) 4.50 - 5.50 M/mcL LAB HEMETOLOGY METHOD 03/24/2025 12:18 PM EDT [facility] Hemoglobin 12.6(L) 13.5 - 17.5 g/dL LAB HEMETOLOGY [facility] Hematocrit 37.9(L) 42.0 - 54.0 % LAB HEMETOLOGY METHOD 03/24[facility]2025 12[facility] MCV 92.9 79.0 - 98.0 FL LAB HEMETOLOGY METHOD 03/24[facility]2025 12[facility] MCH 30.9 27.0 - 32.0 pcg LAB HEMETOLOGY METHOD 03/24/2025 12:[facility] MCHC 33.2 32.0 - 37.0 g/dL LAB HEMETOLOGY METHOD 03/24/2025 12:[facility] RDW 13.4 11.0 - 15.0 % LAB HEMETOLOGY METHOD 03/24/2025 12:[facility] Platelets 208 130 - 400 K/mcL LAB HEMETOLOGY METHOD 03/24/2025 12:[facility] MPV 11.2(H) 7.0 - 11.0 FL LAB HEMETOLOGY METHOD 03/24/2025 12[facility] NRBC 0.0 <1.0 % LAB HEMETOLOGY METHOD 03/24/2025 12:18 PM EDT [facility] NRBC Absolute 0.00 <0.10 K/mcL LAB HEMETOLOGY METHOD 03/24/2025 12:18 PM [facility] Blood Venous blood specimen / Unknown Venipuncture / Unknown 03/24/2025 9:30 AM EDT 03/24/2025 10:46 AM EDT Omari Winters MD LAB BLOOD ORDERABLES Final Result [facility] [address] [place] [address], * (ABNORMAL) Basic metabolic panel (03/24/2025 9:30 AM EDT) Sodium 134 133 - 145 mmol/L LAB CHEMISTRY METHOD 03/24/2025 12:48 PM [facility] Potassium 3.9 3.5 - 5.5 mmol/L LAB CHEMISTRY METHOD 03/24/2025 12:48 PM [facility] Chloride 99 96 - 110 mmol/L LAB CHEMISTRY METHOD 03/24/2025 12:48 PM [facility] CO2 25 21 - 32 mmol/L LAB CHEMISTRY METHOD 03/24/2025 12:48 PM [facility] Anion Gap 10 3 - 11 LAB CHEMISTRY METHOD 03/24/2025 12:48 PM [facility] Glucose 145(H) 70 - 100 mg/dL LAB CHEMISTRY METHOD 03/24/2025 12:48 PM [facility] BUN 11 5 - 25 mg/dL LAB CHEMISTRY METHOD 03/24/2025 12:48 PM [facility] Creatinine 0.64(L) 0.70 - 1.30 mg/dL LAB CHEMISTRY METHOD 03/24/2025 12:48 PM [facility] eGFR 99 >=60 mL/min/1. 73m2 LAB CHEMISTRY METHOD 03/24/2025 12:48 PM EDT [facility] Comment:Calculation based on the Chronic Kidney Disease Epidemiology Collaboration (CKD-EPI) equation refit without adjustment for race. BUN/Creatinine Ratio 17.2 LAB CHEMISTRY METHOD 03/24/2025 12:48 PM EDT [facility] Calcium 9.5 8.5 - 10.5 mg/dL LAB CHEMISTRY METHOD 03/24/2025 12:48 PM EDT [facility] Blood Venous blood specimen / Unknown Venipuncture / Unknown 03/24/2025 9:30 AM EDT 03/24/2025 10:46 AM EDT us Omari Winters MD LAB BLOOD ORDERABLES Final Result [facility] [address] [place] [address], documented in this encounter Visit Diagnoses Diagnosis Essential (primary) hypertension Unspecified essential hypertension Unspecified atrial fibrillation (CMS/HCC V24, CMS/HCC V28) documented in this encounter Care Teams Aviation Metalsmith Relationship Specialty Start Date End Date Velvet Pittman MD [address] [place] [id number] PCP - General Internal Medicine 06/07/24 documented as of this encounter
--- OUTSIDE RECORDS SUMMARY | 2025-07-14 13:05 | XMS_ITS | Encounter Summary ---
Author Organization [facility] Address [address] [place] [address] Care Team Providers Care Informatics Physician Name Role Phone Velvet Pittman MD Primary Care Provider [phone] Alexandria Segura PT Unavailable [phone] Encounter Details Date Type Department Care Team (Late st Contact Info) Description 03/19/2025 Scanned Document [facility] PHYSICAL MEDICINE & REHAB [address] [place] [phone] [id number] Social History Tobacco Use Types Packs/Day Years Used Date Smoking Tobacco: Never Smokeless Tobacco: Never Alcohol Use Standard Drinks/Week Comments Yes 0 (1 standard drink = 0.6 oz pur e alcohol) social [facility] Utilities Answer Date Recorded In the past 12 months has [employer], gas, oil, or water company threatened to [...] any time in the past 12 m [facility], were you homeless or living [...] on filedocumented in this encounter Care Teams Informatics Physician Relationship Specialty Start Date End Date Velvet Pittman MD [address] [address] PCP - General 01/02/24 Alexandria Segura, PT [address] [address] Records Management ClerkPit [facility]anner [facility] 11/26/24 documented as of this encounter
--- OUTSIDE RECORDS SUMMARY | 2025-07-14 13:05 | XMS_ITS | Encounter Summary ---
Author Organization [facility] Address [address] [place] [address] Care Team Providers Care Electrophysiology Technologist Name Role Phone Jhonatan Calderon RN Unavailable Velvet Pittman MD Primary Care Provider [phone] Alexandria Segura PT Unavailable [phone] Encounter Details Date Type Department Care Team (Late st Contact Info) Description 01/04/2024 Scanned Document INPATIENT REHAB [address] [place] [phone] Colin Meeks [address] [place], [place] [phone] Other chronic osteomyelitis, unspecified site (HCC) Social History Tobacco Use Types Packs/Day Years Used Date Smoking Tobacco: Never Assessed [facility] Utilities Answer Date Recorded In the past 12 months has [employer], gas, oil, or water [employer] threatened to shut off services in your [...] place to sleep or slept in a custodial (including now)? No 11/19/2023 Sex and Gender [...] documented as of this encounter Care Teams Electrophysiology Technologist Relationship Specialty Start Date End Date Velvet iPttman MD [address] [address] PCP - General 01/02/24 Jhonatan Calderon RN [address] [place] [address] 5 [place] [address] Nurse Navigator Surgery, Neurosurgery 11/20/23 4 Alexandria Segura, PT [address] [address] Windows Phone DeveloperGas Scrubber Operator Medicine and Rehabilitation 11/26/24 documented as of this encounter
--- OUTSIDE RECORDS SUMMARY | 2025-07-14 13:05 | XMS_ITS | Encounter Summary ---
Author Organization [facility] Address [address] [place] [address] Care Team Providers Care Manufacture Specialist Name Role Phone Velvet Pittman MD Primary Care Provider [phone] Encounter Details Date Type Department Care Team (Late st Contact Info) Description 04/05/2025 Lab Requisition [facility] - Main Lab 299 [facility] [place] [address] Omari Winters MD [address] [place] [address] Essential (primary) hypertension; Unspecified atrial fibrillation (CMS/HCC [...] Associated Diagnosis Comments COMPLETE BLOOD COUNT Routine 04/07/2025 8:09 AM EDT Essential (primary) hypertension Unspecified atrial fibrillation (CMS/HCC V24, CMS/HCC V28) BASIC METABOLIC PANEL Routine 04/07/2025 8:09 AM EDT Essential (primary) hypertension Unspecified atrial fibrillation (CMS/HCC V24, CMS/HCC V28) documented in this encounter Results * (ABNORMAL) Complete blood count (04/07/2025 8:09 AM EDT) [facility] WBC 9.5 4.8 - 10.8 K/mcL LAB HEMETOLOGY METHOD 04/07/2025 12:46 PM EDT [facility] RBC 4.30(L) 4.50 - 5.50 M/mcL LAB HEMETOLOGY METHOD 04/07/2025 12:46 PM EDT [facility] Hemoglobin 13.1(L) 13.5 - 17.5 g/dL LAB HEMETOLOGY METHOD 04/07/2025 12:46 [facility] Hematocrit 38.7(L) 42.0 - 54.0 % LAB HEMETOLOGY METHOD 04/07/2025 12:46 [facility] MCV 90.8 79.0 - 98.0 FL LAB HEMETOLOGY METHOD 04/07/2025 12:46 [facility] MCH 30.8 27.0 - 32.0 pcg LAB HEMETOLOGY METHOD 04/07/2025 12:46 [facility] MCHC 33.9 32.0 - 37.0 g/dL LAB HEMETOLOGY METHOD 04/07/2025 12:46 PM [facility] RDW 13.4 11.0 - 15.0 % LAB HEMETOLOGY METHOD 04/07/2025 12:46 PM [facility] Platelets 169 130 - 400 K/mcL LAB HEMETOLOGY METHOD 04/07/2025 12:46 PM [facility] MPV 11.2(H) 7.0 - 11.0 FL LAB HEMETOLOGY METHOD 04/07/2025 12:46 PM [facility] NRBC 0.0 <1.0 % LAB HEMETOLOGY METHOD 04/07/2025 12:46 PM EDT [facility] NRBC Absolute 0.00 <0.10 K/mcL LAB HEMETOLOGY METHOD 04/07/2025 12:46 PM [facility] Blood Venous blood specimen / Unknown Venipuncture / Unknown 04/07/2025 8:09 AM EDT 04/07/2025 10:44 AM EDT Omari Winters MD LAB BLOOD ORDERABLES Final Result [facility] [address] [place] [address], * (ABNORMAL) Basic metabolic panel (04/07/2025 8:09 AM EDT) Sodium 134 133 - 145 mmol/L LAB CHEMISTRY METHOD 04/07/2025 1:00 PM [facility] Potassium 3.8 3.5 - 5.5 mmol/L LAB CHEMISTRY METHOD 04/07/2025 1:00 PM [facility] Chloride 102 96 - 110 mmol/L LAB CHEMISTRY METHOD 04/07/2025 1:00 PM [facility] CO2 23 21 - 32 mmol/L LAB CHEMISTRY METHOD 04/07/2025 1:00 PM [facility] Anion Gap 9 3 - 11 LAB CHEMISTRY METHOD 04/07/2025 1:00 PM [facility] Glucose 107(H) 70 - 100 mg/dL LAB CHEMISTRY METHOD 04/07/2025 1:00 PM [facility] BUN 9 5 - 25 mg/dL LAB CHEMISTRY METHOD 04/07/2025 1:00 PM [facility] Creatinine 0.46(L) 0.70 - 1.30 mg/dL LAB CHEMISTRY METHOD 04/07/2025 1:00 PM [facility] eGFR 109 >=60 mL/min/1. 73m2 LAB CHEMISTRY METHOD 04/07/2025 1:00 PM EDT [facility] Comment:Calculation based on the Chronic Kidney Disease Epidemiology Collaboration (CKD-EPI) equation refit without adjustment for race. BUN/Creatinine Ratio 19.6 LAB CHEMISTRY METHOD 04/07/2025 1:00 PM EDT [facility] Calcium 9.3 8.5 - 10.5 mg/dL LAB CHEMISTRY METHOD 04/07/2025 1:00 PM EDT [facility] Blood Venous blood specimen / Unknown Venipuncture / Unknown 04/07/2025 8:09 AM EDT 04/07/2025 10:44 AM EDT us Omari Winters MD LAB BLOOD ORDERABLES Final Result [facility] [address] [place] [address], documented in this encounter Visit Diagnoses Diagnosis Essential (primary) hypertension Unspecified essential hypertension Unspecified atrial fibrillation (CMS/HCC V24, CMS/HCC V28) documented in this encounter Care Teams Manufacture Specialist Relationship Specialty Start Date End Date Velvet Pittman MD [address] [place] [address] PCP - General Internal Medicine 06/07/24 documented as of this encounter
--- OUTSIDE RECORDS SUMMARY | 2025-07-14 13:05 | XMS_ITS | Encounter Summary ---
Author Organization Address [address] [place] [address] Care Team Providers Care Director Sports Name Role Phone Velvet Pittman MD Primary Care Provider [phone] Encounter Details Date Type Department Care Team (Latest Contact Info) Description 12/31/2024 Lab Requisition [facility] [place] [facility] - Main Lab 299 [facility] [place] [address] Omari Winters MD [address] [place] [address] Unspecified atrial fibrillation ([facility]/HCC V24, CMS/[facility] V28); Other cerebrovascular disease; Essential (primary) hypertension; Type 2 diabetes mellitus without complications (CMS/HCC V24, CMS/[facility] V28) Social History Tobacco Use Types Packs/Day [...] Associated Diagnosis Comments COMPLETE BLOOD COUNT Routine 12/31/2024 6:26 AM EDT Unspecified atrial fibrillation (CMS/HCC V24, CMS/HCC V28) Other cerebrovascular disease Essential (primary) hypertension Type 2 diabetes mellitus without complications (CMS/HCC V24, CMS/[facility] V28) HEMOGLOBIN A1C Routine 12/31/2024 6:26 AM EDT Unspecified atrial fibrillation ([facility]/HCC V24, CMS/HCC V28) Other cerebrovascular disease Essential (primary) hypertension Type 2 diabetes mellitus without complications (CMS/HCC V24, CMS/HCC V28) COMPREHENSIVE METABOLIC PANEL Routine 12/31/2024 6:26 AM EDT Unspecified atrial fibrillation (CMS/HCC V24, CMS/HCC V28) Other cerebrovascular disease Essential (primary) hypertension Type 2 diabetes mellitus without complications (CMS/HCC V24, CMS/HCC V28) documented in this encounter Results * (ABNORMAL) Hemoglobin A1c (12/31/2024 6:26 AM EDT) Pathologist [facility] Hemoglobin A1C 6.7(H) <6.5 % LAB CHEMISTRY METHOD 12/31/2024 10:44 AM EDT [facility] Mean Bld Glu Estim. 146 mg/dL LAB CHEMISTRY METHOD 12/31/2024 10:44 AM EDT [facility] Blood Venous blood specimen / Unknown Venipuncture / Unknown 12/31/2024 6:26 AM EDT 12/31/2024 7:40 AM EDT us Omari Winters MD LAB BLOOD ORDERABLES Final Result [facility] [address] [place] [address], * (ABNORMAL) Comprehensive metabolic panel (12/31/2024 6:26 AM EDT) Pathologist [facility] Sodium 137 133 - 145 mmol/L LAB CHEMISTRY METHOD 12/31/2024 8:50 AM EDT [facility] Potassium 3.2(L) 3.5 - 5.5 mmol/L LAB CHEMISTRY METHOD 12/31/2024 8:50 AM EDT [facility] Chloride 105 96 - 110 mmol/L LAB CHEMISTRY METHOD 12/31/2024 8:50 AM [facility] CO2 23 21 - 32 mmol/L LAB CHEMISTRY METHOD 12/31/2024 8:50 AM [facility] Anion Gap 9 3 - 11 LAB CHEMISTRY METHOD 12/31/2024 8:50 AM [facility] Glucose 125(H) 70 - 100 mg/dL LAB CHEMISTRY METHOD 12/31/2024 8:50 AM [facility] BUN 11 5 - 25 mg/dL LAB CHEMISTRY METHOD 12/31/2024 8:50 AM [facility] Creatinine 0.52(L) 0.70 - 1.30 mg/dL LAB CHEMISTRY METHOD 12/31/2024 8:50 AM [facility] eGFR 105 >=60 mL/min/1. 73m2 LAB CHEMISTRY METHOD 12/31/2024 8:50 AM [facility] Comment:Calculation based on the Chronic Kidney Disease Epidemiology Collaboration (CKD-EPI) equation refit without adjustment for race. BUN/Creatinine Ratio 21.2 LAB CHEMISTRY METHOD 12/31/2024 8:50 AM [facility] Calcium 8.6 8.5 - 10.5 mg/dL LAB CHEMISTRY METHOD 12/31/2024 8:50 AM [facility] AST (SGOT) 59(H) 10 - 42 unit/L LAB CHEMISTRY METHOD 12/31/2024 8:50 AM [facility] ALT (SGPT) 55 10 - 60 unit/L LAB CHEMISTRY METHOD 12/31/2024 8:50 AM [facility] Alkaline Phosphatase 201(H) 42 - 121 unit/L LAB CHEMISTRY METHOD 12/31/2024 8:50 AM [facility] Total Protein 6.4 6.0 - 8.0 g/dL LAB CHEMISTRY METHOD 12/31/2024 8:50 AM [facility] Albumin 2.2(L) 3.2 - 5.0 g/dL LAB CHEMISTRY METHOD 12/31/2024 8:50 AM T [facility] Total Bilirubin 0.5 0.0 - 1.4 mg/dL LAB CHEMISTRY METHOD 12/31/2024 8:50 AM [facility] Blood Venous blood specimen / Unknown Venipuncture / Unknown 12/31/2024 6:26 AM EDT 12/31/2024 7:40 AM EDT us Omari Winters MD LAB BLOOD ORDERABLES Final Result [facility] [address] [place] [address], * (ABNORMAL) Complete blood count (12/31/2024 6:26 AM EDT) WBC 6.1 4.8 - 10.8 K/mcL LAB HEMETOLOGY METHOD 12/31/2024 7:57 AM [facility] RBC 3.40(L) 4.50 - 5.50 M/mcL LAB HEMETOLOGY METHOD 12/31/2024 7:57 AM [facility] Hemoglobin 10.8(L) 13.5 - 17.5 g/dL LAB HEMETOLOGY METHOD 12/31/2024 7:57 AM [facility] Hematocrit 32.0(L) 42.0 - 54.0 % LAB HEMETOLOGY METHOD 12/31/2024 7:57 AM [facility] MCV 95.5 79.0 - 98.0 FL LAB HEMETOLOGY METHOD 12/31/2024 7:57 AM [facility] MCH 32.2(H) 27.0 - 32.0 pcg LAB HEMETOLOGY METHOD 12/31/2024 7:57 AM [facility] MCHC 33.8 32.0 - 37.0 g/dL LAB HEMETOLOGY METHOD 12/31/2024 7:57 AM EDT [facility] RDW 12.0 11.0 - 15.0 % LAB HEMETOLOGY METHOD 12/31/2024 7:57 AM EDT [facility] Platelets 219 130 - 400 K/mcL LAB HEMETOLOGY METHOD 12/31/2024 7:57 AM EDT [facility] MPV 10.1 7.0 - 11.0 FL LAB HEMETOLOGY METHOD 12/31/2024 7:57 AM EDT [facility] NRBC 0.0 <1.0 % LAB HEMETOLOGY METHOD 12/31/2024 7:57 AM EDT [facility] NRBC Absolute 0.00 <0.10 K/mcL LAB HEMETOLOGY METHOD 12/31/2024 7:57 AM EDT [facility] Blood Venous blood specimen / Unknown Venipuncture / Unknown 12/31/2024 6:26 AM EDT 12/31/2024 7:40 AM EDT Omari Winters MD LAB BLOOD ORDERABLES Final Result [facility] [address] [place] [address], documented in this encounter Visit Diagnoses Diagnosis Unspecified atrial fibrillation (CMS/HCC V24, CMS/HCC V28) Other cerebrovascular disease Essential (primary) hypertension Unspecified essential hypertension Type 2 diabetes mellitus without complications (CMS/HCC V24, CMS/HCC V28) documented in this encounter Care Teams Director Sports Relationship Specialty Start Date End Date Velvet Pittman MD [address] [place] [address] PCP - General Internal Medicine 06/07/24 documented as of this encounter
--- OUTSIDE RECORDS SUMMARY | 2025-07-14 13:05 | XMS_ITS | Encounter Summary ---
Author Organization [facility] Address [address] [place] [address] Care Team Providers Care Stator Winder Name Role Phone Velvet Pittman MD Primary Care Provider [phone] Encounter Details Date Type Department Care Team (Late st Contact Info) Description 01/03/[address] [facility] - Main Lab [address] [facility] [place] [address] Omari Winters MD [address] [place] [address] Unspecified atrial fibrillation (CMS/HCC V24, CMS/HCC V28); [...] Associated Diagnosis Comments COMPLETE BLOOD COUNT Routine 01/06/2025 7:35 AM EDT Unspecified atrial fibrillation (CMS/HCC V24, CMS/HCC V28) Cerebral infarction, unspecified (CMS/HCC V24, CMS/HCC V28) Essential (primary) hypertension MAGNESIUM Routine 01/06/2025 7:35 AM EDT Unspecified atrial fibrillation (CMS/HCC V24, CMS/HCC V28) Cerebral infarction, unspecified (CMS/HCC V24, CMS/HCC V28) Essential (primary) hypertension BASIC METABOLIC PANEL Routine 01/06/2025 7:35 AM EDT Unspecified atrial fibrillation (CMS/HCC V24, CMS/HCC V28) Cerebral infarction, unspecified (CMS/HCC V24, CMS/HCC V28) Essential (primary) hypertension documented in this encounter Results * (ABNORMAL) Magnesium (01/06/2025 7:35 AM EDT) [facility] Magnesium 1.7(L) 1.9 - 2.6 mg/dL LAB CHEMISTRY METHOD 01/06/2025 11:48 AM EDT [facility] Blood Venous blood specimen / Unknown Venipuncture / Unknown 01/06/2025 7:35 AM EDT 01/06/2025 9:54 AM EDT Omari Winters MD LAB BLOOD ORDERABLES Final Result [facility] [address] [place] [address], [place] [phone] * (ABNORMAL) Complete blood count (01/06/2025 7:35 AM EDT) [facility] WBC 7.4 4.8 - 10.8 K/mcL LAB HEMETOLOGY METHOD 01/06/2025 10:37 AM EDT [facility] RBC 3.50(L) 4.50 - 5.50 M/mcL LAB HEMETOLOGY METHOD 01/06/2025 10:37 AM EDT [facility] Hemoglobin 11.1(L) 13.5 - 17.5 g/dL LAB HEMETOLOGY METHOD 01/06/2025 10:37 AM EDT [facility] Hematocrit 32.8(L) 42.0 - 54.0 % LAB HEMETOLOGY METHOD 01/06/2025 10:37 AM EDT [facility] MCV 94.5 79.0 - 98.0 FL LAB HEMETOLOGY METHOD 01/06/2025 10:37 AM EDT [facility] MCH 32.0 27.0 - 32.0 pcg LAB HEMETOLOGY METHOD 01/06/2025 10:37 AM EDT [facility] MCHC 33.8 32.0 - 37.0 g/dL LAB HEMETOLOGY METHOD 01/06/2025 10:37 AM EDT [facility] RDW 12.5 11.0 - 15.0 % LAB HEMETOLOGY METHOD 01/06/2025 10:37 AM EDT [facility] Platelets 306 130 - 400 K/mcL LAB HEMETOLOGY METHOD 01/06/2025 10:37 AM EDT [facility] MPV 10.1 7.0 - 11.0 FL LAB HEMETOLOGY METHOD 01/06/2025 10:37 AM EDT [facility] NRBC 0.0 <1.0 % LAB HEMETOLOGY METHOD 01/06/2025 10:37 AM EDT [facility] NRBC Absolute 0.00 <0.10 K/mcL LAB HEMETOLOGY METHOD 01/06/2025 10:37 AM EDT [facility] Blood Venous blood specimen / Unknown Venipuncture / Unknown 01/06/2025 7:35 AM EDT 01/06/2025 9:54 AM EDT us Omari Winters MD LAB BLOOD ORDERABLES Final Result [facility] [address] [place] [address], * (ABNORMAL) Basic metabolic panel (01/06/2025 7:35 AM EDT) Sodium 143 133 - 145 mmol/L LAB CHEMISTRY METHOD 01/06/2025 11:48 AM [facility] Potassium 3.0(L) 3.5 - 5.5 mmol/L LAB CHEMISTRY METHOD 01/06/2025 11:48 AM [facility] Chloride 110 96 - 110 mmol/L LAB CHEMISTRY METHOD 01/06/2025 11:48 AM [facility] CO2 23 21 - 32 mmol/L LAB CHEMISTRY METHOD 01/06/2025 11:48 AM [facility] Anion Gap 10 3 - 11 LAB CHEMISTRY METHOD 01/06/2025 11:48 AM [facility] Glucose 104(H) 70 - 100 mg/dL LAB CHEMISTRY METHOD 01/06/2025 11:48 AM [facility] BUN 9 5 - 25 mg/dL LAB CHEMISTRY METHOD 01/06/2025 11:48 AM [facility] Creatinine 0.55(L) 0.70 - 1.30 mg/dL LAB CHEMISTRY METHOD 01/06/2025 11:48 AM [facility] eGFR 103 >=60 mL/min/1. 73m2 LAB CHEMISTRY METHOD 01/06/2025 11:48 AM [facility] Comment:Calculation based on the Chronic Kidney Disease Epidemiology Collaboration (CKD-EPI) equation refit without adjustment for race. BUN/Creatinine Ratio 16.4 LAB CHEMISTRY METHOD 01/06/2025 11:48 AM [facility] Calcium 8.4(L) 8.5 - 10.5 mg/dL LAB CHEMISTRY METHOD 01/06/2025 11:48 AM [facility] Blood Venous blood specimen / Unknown Venipuncture / Unknown 01/06/2025 7:35 AM EDT 01/06/2025 9:54 AM EDT us Omari Winters MD LAB BLOOD ORDERABLES Final Result [facility] LAB [address] [place] [address], documented in this encounter Visit Diagnoses Diagnosis Unspecified atrial fibrillation (CMS/HCC V24, CMS/[facility] V28) Cerebral infarction, unspecified (CMS/[facility] V24, [facility] V28) Essential (primary) hypertension Unspecified essential hypertension documented in this encounter Care Teams Stator Winder Relationship Specialty Start Date End Date Velvet Pittman MD [address] [address] PCP - General Internal Medicine 06/07/24 documented as of this encounter
--- OUTSIDE RECORDS SUMMARY | 2025-07-14 13:05 | XMS_ITS | Encounter Summary ---
Author Organization [facility] Address [address] [place] [address] Care Team Providers Care Chip Mucker Name Role Phone Velvet Pittman MD Primary Care Provider [phone] Encounter Details Date Type Department Care Team (Late st Contact Info) Description 04/12/2025 Lab Requisition [facility] - Main Lab 299 [facility] [place] [address] Omari Winters MD [address] [place] [address] Essential (primary) hypertension; Unspecified atrial fibrillation (CMS/HCC [...] as of this encounter Visit Diagnoses Diagnosis Essential (primary) hypertension Unspecified essential hypertension Unspecified atrial fibrillation (CMS/HCC V24, CMS/HCC V28) documented in this encounter Care Teams Chip Mucker Relationship Specialty Start Date End Date Velvet Pittman MD [address] [address] PCP - General Internal Medicine 06/07/24 documented as of this encounter
--- OUTSIDE RECORDS SUMMARY | 2025-07-14 13:05 | XMS_ITS | Encounter Summary ---
Author Organization [facility] Address [address] [place] [address] Care Team Providers Care Seismic Computer Name Role Phone Velvet Pittman MD Primary Care Provider [phone] Encounter Details Date Type Department Care Team (Latest Contact Info) Description 03/26/2025 Lab Requisition [facility] - Main Lab 299 [facility] [place] [address] Omari Winters MD [address] [place] [address] Type 2 diabetes mellitus without complications (CMS/HCC V24, CMS/HCC V28); Other cerebrovascular disease Social History Tobacco Use Types Packs/Day Years [...] Associated Diagnosis Comments COMPLETE BLOOD COUNT Routine 03/26/2025 6:12 AM EDT Type 2 diabetes mellitus without complications (CMS/HCC V24, CMS/HCC V28) Other cerebrovascular disease BILIRUBIN, DIRECT Routine 03/26/2025 6:1 2 AM EDT Type 2 diabetes mellitus without complications (CMS/HCC V24, CMS/HCC V28) Other cerebrovascular disease COMPREHENSIVE METABOLIC PANEL Routine 03/26/2025 6:12 AM EDT Type 2 diabetes mellitus without complications ([facility]/HCC V24, [facility]/HCC V28) Other cerebrovascular disease documented in this encounter Results * Bilirubin, direct (03/26/2025 6:12 AM EDT) Bilirubin, Direct 0.2 0.0 - 0.3 mg/dL LAB CHEMISTRY METHOD 03/26/2025 11:59 AM EDT [facility] Blood Venous blood specimen / Unknown Venipuncture / Unknown 03/26/2025 6:12 AM EDT 03/26/2025 9:49 AM EDT us Omari Winters MD LAB BLOOD ORDERABLES Final Result [facility] [address] [place] [address], * (ABNORMAL) Comprehensive metabolic panel (03/26/2025 6:12 AM EDT) Pathologist [facility] Sodium 135 133 - 145 mmol/L LAB CHEMISTRY METHOD 03/26/2025 11:59 AM [facility] Potassium 3.8 3.5 - 5.5 mmol/L LAB CHEMISTRY METHOD 03/26/2025 11:59 AM T [facility] Chloride 102 96 - 110 mmol/L LAB CHEMISTRY METHOD 03/26/2025 11:59 AM [facility] CO2 23 21 - 32 mmol/L LAB CHEMISTRY METHOD 03/26/2025 11:59 AM T [facility] Anion Gap 10 3 - 11 LAB CHEMISTRY METHOD 03/26/2025 11:59 AM [facility] Glucose 78 70 - 100 mg/dL LAB CHEMISTRY METHOD 03/26/2025 11:59 AM T [facility] BUN 13 5 - 25 mg/dL LAB CHEMISTRY METHOD 03/26/2025 11:59 AM [facility] Creatinine 0.54(L) 0.70 - 1.30 mg/dL LAB CHEMISTRY METHOD 03/26/2025 11:59 AM [facility] eGFR 104 >=60 mL/min/1. 73m2 LAB CHEMISTRY METHOD 03/26/2025 11:59 AM [facility] Comment:Calculation based on the Chronic Kidney Disease Epidemiology Collaboration (CKD-EPI) equation refit without adjustment for race. BUN/Creatinine Ratio 24.1 LAB CHEMISTRY METHOD 03/26/2025 11:59 AM [facility] Calcium 9.5 8.5 - 10.5 mg/dL LAB CHEMISTRY METHOD 03/26/2025 11:59 AM [facility] AST (SGOT) 20 10 - 42 unit/L LAB CHEMISTRY METHOD 03/26/2025 11:59 AM [facility] ALT (SGPT) 24 10 - 60 unit/L LAB CHEMISTRY METHOD 03/26/2025 11:59 AM [facility] Alkaline Phosphatase 103 42 - 121 unit/L LAB CHEMISTRY METHOD 03/26/2025 11:59 AM [facility] Total Protein 7.4 6.0 - 8.0 g/dL LAB CHEMISTRY METHOD 03/26/2025 11:59 AM [facility] Albumin 3.4 3.2 - 5.0 g/dL LAB CHEMISTRY METHOD 03/26/2025 11:59 AM [facility] Total Bilirubin 0.5 0.0 - 1.4 mg/dL LAB CHEMISTRY METHOD 03/26/2025 11:59 AM [facility] Blood Venous blood specimen / Unknown Venipuncture / Unknown 03/26/2025 6:12 AM EDT 03/26/2025 9:49 AM EDT us Omari Winters MD LAB BLOOD ORDERABLES Final Result [facility] [address] [place] [address], * (ABNORMAL) Complete blood count (03/26/2025 6:12 AM EDT) WBC 9.9 4.8 - 10.8 K/mcL LAB HEMETOLOGY METHOD 03/26/2025 11:07 AM EDT [facility] RBC 4.00(L) 4.50 - 5.50 M/mcL LAB HEMETOLOGY METHOD 03/26/2025 11:07 AM EDT [facility] Hemoglobin 12.2(L) 13.5 - 17.5 g/dL LAB HEMETOLOGY METHOD [facility]2025 [facility] Hematocrit 36.6(L) 42.0 - 54.0 % LAB HEMETOLOGY METHOD 03/26/2025 11:07 AM EDT [facility] MCV 91.0 79.0 - 98.0 FL LAB HEMETOLOGY METHOD 03/26/2025 11:07 [facility] MCH 30.3 27.0 - 32.0 pcg LAB HEMETOLOGY METHOD 03/26/2025 11:07 [facility] MCHC 33.3 32.0 - 37.0 g/dL LAB HEMETOLOGY METHOD 03/26/2025 11:07 AM EDT [facility] RDW 13.2 11.0 - 15.0 % LAB HEMETOLOGY METHOD 03/26/2025 11:07 AM EDT [facility] Platelets 195 130 - 400 K/mcL LAB HEMETOLOGY METHOD 03/26/2025 11:07 [facility] MPV 11.0 7.0 - 11.0 FL LAB HEMETOLOGY METHOD 03/26/2025 11:07 AM EDT [facility] NRBC 0.0 <1.0 % LAB HEMETOLOGY METHOD 03/26/2025 11:07 AM EDT [facility] NRBC Absolute 0.00 <0.10 K/mcL LAB HEMETOLOGY METHOD 03/26/2025 11:07 AM EDT [facility] Blood Venous blood specimen / Unknown Venipuncture / Unknown 03/26/2025 6:12 AM EDT 03/26/2025 9:49 AM EDT us Omari Winters MD LAB BLOOD ORDERABLES Final Result [facility] [address] [place] [address], documented in this encounter Visit Diagnoses Diagnosis Type 2 diabetes mellitus without complications (CMS/HCC V24, CMS/HCC V28) Other cerebrovascular disease documented in this encounter Care Teams Seismic Computer Relationship Specialty Start Date End Date Velvet Pittman MD [address] [address] PCP - General Internal Medicine 06/07/24 documented as of this encounter
--- OUTSIDE RECORDS SUMMARY | 2025-07-14 13:05 | XMS_ITS | Encounter Summary ---
Author Organization [facility] Address [address] [place] [address] Care Team Providers Care Patient Transport Officer Name Role Phone Jhonatan Calderon RN Unavailable Velvet Pittman MD Primary Care Provider [phone] Alexandria Segura PT Unavailable [phone] Encounter Details Date Type Department Care Team (Late st Contact Info) Description 01/04/2024 Scanned Document INPATIENT REHAB [address] [place] [phone] Colin Meeks [address] [place], [place] [id number] Social History Tobacco Use Types Packs/Day Years Used Date Smoking Tobacco: Never Assessed [facility] Utilities Answer Date Recorded In the past 12 months has netTALK, gas, oil, or water [employer] threatened to shut off services in your [...] place to sleep or slept in a usp (including now)? No 11/19/2023 Sex and Gender [...] documented as of this encounter Care Teams Patient Transport Officer Relationship Specialty Start Date End Date Velvet Pittman MD [address] [place] [address] PCP - General 01/02/24 Jhonatan Calderon RN [address] [place] [address] Nurse Navigator Surgery, Neurosurgery 11/20/23 4 Alexandria Segura, PT [address] [place] [address] Painting [employer]or[employer] Roofing Mechanic Medicine and Rehabilitation 11/26/24 documented as of this encounter
--- OUTSIDE RECORDS SUMMARY | 2025-07-14 13:05 | XMS_ITS | Encounter Summary ---
Author Organization [facility] Address [address] [place] [address] Care Team Providers Care Children Counselor Name Role Phone Velvet Pittman MD Primary Care Provider [phone] Encounter Details Date Type Department Care Team (Late st Contact Info) Description 03/30/2025 Lab Requisition [facility] - Main Lab [address] [facility] [place] [address] Omari Winters MD [address] [place] [address] Essential (primary) hypertension; Unspecified atrial fibrillation (CMS/HCC [...] Associated Diagnosis Comments COMPLETE BLOOD COUNT Routine 03/31/2025 8:33 AM EDT Essential (primary) hypertension Unspecified atrial fibrillation (CMS/HCC V24, CMS/HCC V28) BASIC METABOLIC PANEL Routine 03/31/2025 8:33 AM EDT Essential (primary) hypertension Unspecified atrial fibrillation (CMS/HCC V24, CMS/HCC V28) documented in this encounter Results * (ABNORMAL) Complete blood count (03/31/2025 8:33 AM EDT) [facility] WBC 9.5 4.8 - 10.8 K/mcL LAB HEMETOLOGY METHOD 03/31/2025 11:51 AM [facility] RBC 4.00(L) 4.50 - 5.50 M/mcL LAB HEMETOLOGY METHOD 03/31/2025 11:51 AM EDT [facility] Hemoglobin 12.3(L) 13.5 - 17.5 g/dL LAB HEMETOLOGY METHOD 03/31/2025 11:51 AM [facility] Hematocrit 37.0(L) 42.0 - 54.0 % LAB HEMETOLOGY METHOD 03/31/2025 11:51 AM [facility] MCV 91.6 79.0 - 98.0 FL LAB HEMETOLOGY METHOD 03/31/2025 11:51 AM [facility] MCH 30.4 27.0 - 32.0 pcg LAB HEMETOLOGY METHOD 03/31/2025 11:51 AM [facility] MCHC 33.2 32.0 - 37.0 g/dL LAB HEMETOLOGY METHOD 03/31/2025 11:51 AM [facility] RDW 13.5 11.0 - 15.0 % LAB HEMETOLOGY METHOD 03/31/2025 11:51 AM [facility] Platelets 187 130 - 400 K/mcL LAB HEMETOLOGY METHOD 03/31/2025 11:51 AM [facility] MPV 11.0 7.0 - 11.0 FL LAB HEMETOLOGY METHOD 03/31/2025 11:51 AM [facility] NRBC 0.0 <1.0 % LAB HEMETOLOGY METHOD 03/31/2025 11:51 AM EDT [facility] NRBC Absolute 0.00 <0.10 K/mcL LAB HEMETOLOGY METHOD 03/31/2025 11:51 AM [facility] Blood Venous blood specimen / Unknown Venipuncture / Unknown 03/31/2025 8:33 AM EDT 03/31/2025 10:59 AM EDT us Omari Winters MD LAB BLOOD ORDERABLES Final Result [facility] [address] [place] [address], * (ABNORMAL) Basic metabolic panel (03/31/2025 8:33 AM EDT) Sodium 132(L) 133 - 145 mmol/L LAB CHEMISTRY METHOD 03/31/2025 11:58 AM [facility] Potassium 3.9 3.5 - 5.5 mmol/L LAB CHEMISTRY METHOD 03/31/2025 11:58 AM [facility] Chloride 101 96 - 110 mmol/L LAB CHEMISTRY METHOD 03/31/2025 11:58 AM [facility] CO2 21 21 - 32 mmol/L LAB CHEMISTRY METHOD 03/31/2025 11:58 AM [facility] Anion Gap 10 3 - 11 LAB CHEMISTRY METHOD 03/31/2025 11:58 AM [facility] Glucose 128(H) 70 - 100 mg/dL LAB CHEMISTRY METHOD 03/31/2025 11:58 AM [facility] BUN 11 5 - 25 mg/dL LAB CHEMISTRY METHOD 03/31/2025 11:58 AM [facility] Creatinine 0.67(L) 0.70 - 1.30 mg/dL LAB CHEMISTRY METHOD 03/31/2025 11:58 AM [facility] eGFR 97 >=60 mL/min/1. 73m2 LAB CHEMISTRY METHOD 03/31/2025 11:58 AM EDT [facility] Comment:Calculation based on the Chronic Kidney Disease Epidemiology Collaboration (CKD-EPI) equation refit without adjustment for race. BUN/Creatinine Ratio 16.4 LAB CHEMISTRY METHOD 03/31/2025 11:58 AM EDT [facility] Calcium 9.0 8.5 - 10.5 mg/dL LAB CHEMISTRY METHOD 03/31/2025 11:58 AM EDT [facility] Blood Venous blood specimen / Unknown Venipuncture / Unknown 03/31/2025 8:33 AM EDT 03/31/2025 10:59 AM EDT us Omari Winters MD LAB BLOOD ORDERABLES Final Result [facility] [address] [place] [address], documented in this encounter Visit Diagnoses Diagnosis Essential (primary) hypertension Unspecified essential hypertension Unspecified atrial fibrillation (CMS/HCC V24, CMS/HCC V28) documented in this encounter Care Teams Children Counselor Relationship Specialty Start Date End Date Velvet Pittman MD [address] [place] [phone] PCP - General Internal Medicine 06/07/24 documented as of this encounter
== END 2025-07-14 11:44 | disposition home or self-care (01) ==
LOC: HO.HCS 11:09
PROVIDERS: PCP Internal Medicine; Visit Provider Internal Medicine Cardiovascular Disease
DX: I48.20 Chronic atrial fibrillation, unspecified (principal); I71.20 Thoracic aortic aneurysm, without rupture, unspecified; Z95.0 Presence of cardiac pacemaker
CPT/HCPCS: 93279; 99214

== ENCOUNTER → 2025-07-14 11:09 | Outpatient (BNVA) | payer MEDICARE, SELFPAY | PROVIDERS: PCP Internal Medicine; Visit Provider Internal Medicine Cardiovascular Disease | DX: I48.20 Chronic atrial fibrillation, unspecified (principal); I71.20 Thoracic aortic aneurysm, without rupture, unspecified; I10 Essential (primary) hypertension; Z95.0 Presence of cardiac pacemaker | CPT/HCPCS: 93279; 99212 ==